=== PATIENT | male | born 1985 | race Caucasian/White ===

== ENCOUNTER 2023-04-11 21:59 | Emergency (ER) | payer SELFPAY ==
[2023-04-11 22:18] VITALS: BP 129/81; PULSE 96; RESP 18; TEMP 37.8; O2SAT 96; BMI 21.1
--- NOTE | 2023-04-11 23:12 | XR_ITS ---
The [address] [address] Patient Name: BRAVO ALBRECHT MRN: [id number] date: 1985 Sex: M Assigned Patient Location: ER Current Patient Location: ER Accession/Order Number: [id number] Exam Date: 04/11/2023 23:52 Report Date: 04/12/2023 00:08 At the request of: ARGENIS TA Procedure: XR chest 2V EXAM: XR chest 2V HISTORY: cough COMPARISON: None. TECHNIQUE: PA and lateral chest x-ray FINDINGS: Patchy infiltrate within the lingula. The remainder of the lung parenchyma is unremarkable. No pneumothorax or pleural effusion. The cardiac, mediastinal and hilar contours are unremarkable. No visualized acute osseous abnormality XR/XR chest 2V IMPRESSION: Lingula infiltrate. Electronically authenticated by: ADRIAN GRAY Date: 04/12/2023 00:08
--- NOTE | 2023-04-11 23:14 | ED.SOB1 ---
HPI - SOB/Dyspnea General Chief Complaint: Shortness of Breath/Dyspnea Stated Complaint: Shortness of Breath Time Seen by Provider: 04/11/23 23:08 Source: patient Mode of arrival: walk-in History of Present Illness HPI Narrative: history of CF and diabetes. ill for past 4 days with cough and dyspnea. Fever also. No chest pain or nausea. Cough mostly dry MD elicited complaint: shortness of breath and cough Related Data Home Medications Medication Instructions Recorded Confirmed insulin glargine 100 unit/mL (3 1 unit subcut QPM 04/11/23 04/11/23 mL) subcutaneous pen (Basaglar KwikPen U-100 Insulin) insulin lispro 100 unit/mL 1 sliding scale dose subcut 04/11/23 04/11/23 subcutaneous pen (Humalog KwikPen USEASDIRECTD (U-100) Insulin) qfjjeo-nklcddqw-bydvksd cap PO 04/11/23 3,000-10,000-14,000 unit capsule,delayed rel (Zenpep) Allergies Allergy/AdvReac Type Severity Reaction Status Date / Time No Known Drug Allergies Allergy Verified 04/11/23 22:20 Review of Systems ROS Status of ROS 10 or more systems reviewed and unremarkable except as noted in history and below Respiratory Reports: shortness of breath and cough [facility] Medical History (Updated 04/12/23 @ 01:17 by Kike Hill MD) Cystic fibrosis ?E84.9 - Cystic fibrosis, unspecified (ICD-10) Social History Smoking status: Never smoker Exam Constitutional Vital Signs, click to edit/add: Last Vital Signs Temp 98.4 F 04/12/23 00:42 Pulse 87 04/11/23 23:27 Resp 16 04/12/23 00:42 BP 129/81 04/11/23 22:18 Pulse Ox 96 04/12/23 00:42 O2 Del Method Room Air 04/11/23 23:27 Common normals: no apparent distress, average body habitus, oriented x3, no limitations, healthy appearing, alert and well nourished Eye Common normals: EOMs intact bilaterally and conjunctivae normal Chest Common normals: inspection of chest normal, palpation of chest normal and inspection of breasts normal Cardio Common normals: regular rate, regular rhythm, S1 normal heart sound and S2 normal heart sound GI Common normals: Normal to inspection, nondistended, normoactive bowel sounds present, soft to palpation and non-tender Extremity Common normals: normal to inspection and full ROM Neuro Common normals: oriented x3, CN's II-XII intact bilaterally, moves all extremities, no focal motor deficits and no sensory deficits noted Psych Appearance: grossly normal Course Vital Signs Vital signs: Vital Signs Temperature 100.1 F 04/11/23 22:18 Pulse Rate 96 H 04/11/23 22:18 Respiratory Rate 18 04/11/23 22:18 Blood Pressure 129/81 04/11/23 22:18 Pulse Oximetry 96 04/11/23 22:18 Oxygen Delivery Method Room Air 04/11/23 22:18 Temperature 98.4 F 04/12/23 00:42 Pulse Rate 87 04/11/23 23:27 Respiratory Rate 16 04/12/23 00:42 Blood Pressure 129/81 04/11/23 22:18 Pulse Oximetry 96 04/12/23 00:42 Oxygen Delivery Method Room Air 04/11/23 23:27 MDM - SOB/Dyspnea MDM Narrative Medical decision making narrative: patient has past history of CF. presents with fever, cough and feeling short of breath. Patient given duoneb nebulizer treatment and afterwards was feeling better and requesting discharged. Patient then informed that he has a left lingula pneumonia. Given Rocephin and zithromax in the department for CAP and discharged home with a prescription of zpak and ceftin 500 bid 10 days. he is to follow up with his doctor. BS 334. Patient know diabetic and able to manage his BS at home Lab Data Labs: Lab Results 04/11/23 04/11/23 Range/Units 23:20 23:24 WBC 12.1 H (4.0-11.0) 10^3/uL RBC 4.31 L (4.70-6.10) 10^6/uL Hgb 12.2 L (14.0-18.0) g/dL Hct 37.0 L (42.0-54.0) % MCV 85.8 (80.0-94.0) fL MCH 28.3 (25.9-34.0) pg MCHC 33.0 (29.9-35.2) g/dL RDW 13.1 (11.0-15.0) % Plt Count 272 (150-450) 10^3/uL MPV 9.6 (9.5-13.5) fL Neut % (Auto) 71.8 (43.0-75.0) % Lymph % (Auto) 17.2 L (20.5-60.0) % [place] % (Auto) 8.5 (1.7-12.0) % Eos % (Auto) 1.9 (0.9-7.0) % Baso % (Auto) 0.3 (0.2-2.0) % Neut # (Auto) 8.6 H (1.4-6.5) 10^3/uL Lymph # (Auto) 2.1 (1.2-3.8) 10^3/uL [place] # (Auto) 1.0 H (0.3-0.8) 10^3/uL Eos # (Auto) 0.2 (0.0-0.7) 10^3/uL Baso # (Auto) 0.0 (0.0-0.1) 10^3/uL Abs Immat Gran (auto) 0.04 H (0.00-0.03) 10^3/uL Imm/Tot Granulo (auto) 0.3 (0.0-0.5) % Sodium 130 L (136-145) mmol/L Potassium 4.5 (3.5-5.1) mmol/L Chloride 97 L (98-107) mmol/L Carbon Dioxide 28.1 (21.0-32.0) mmol/L Anion Gap 9.4 BUN 12.0 (7.0-18.0) mg/dL Creatinine 0.98 (0.70-1.30) mg/dL Est GFR ( Amer) >60 (>=60) Est GFR (Non-Af Amer) >60 (>=60) BUN/Creatinine Ratio 12.2 Glucose 334 H (74-106) mg/dL Lactate 0.9 (0.4-2.0) mmol/L Calcium 8.6 (8.5-10.1) mg/dL Adenovirus (PCR) Not detected (NOT DETECTE) C. pneumoniae DNA (PCR) Not detected (NOT DETECTE) Coronavirus Type OC43 Not detected (NOT DETECTE) Coronavirus Type HKU1 Not detected (NOT DETECTE) Coronavirus Type 229E Not detected (NOT DETECTE) Coronavirus Type NL63 Not detected (NOT DETECTE) Human Metapneumovir PCR Not detected (NOT DETECTE) M. pneumoniae (PCR) Not detected (NOT DETECTE) Parainfluenza PCR Not detected (NOT DETECTE) Parainfluenza 2 (PCR) Not detected (NOT DETECTE) Parainfluenza 3 (PCR) Not detected (NOT DETECTE) Parainfluenza 4 (PCR) Not detected (NOT DETECTE) RSV (RT-PCR) Not detected (NOT DETECTE) Entero/Rhino (PCR) Not detected (NOT DETECTE) SARS-CoV-2 (PCR) Not detected (NOT DETECTE) Bordetella pertussis (PCR) Not detected (NOT DETECTE) B parapertussis DNA PCR Not detected (NOT DETECTE) Influenza Type A (PCR) Not detected (NOT DETECTE) Influenza Type B (PCR) Not detected (NOT DETECTE) Imaging Data Chest x-ray: Radiologist's impression: Assigned Patient Location: ER Current Patient Location: ER Accession/Order Number: [id number] Exam Date: 04/11/2023 23:52 Report Date: 04/12/2023 00:08 At the request of: KIKE HILL Procedure: XR chest 2V EXAM: XR chest 2V HISTORY: cough COMPARISON: None. TECHNIQUE: PA and lateral chest x-ray FINDINGS: Patchy infiltrate within the lingula. The remainder of the lung parenchyma is unremarkable. No pneumothorax or pleural effusion. The cardiac, mediastinal and hilar contours are unremarkable. No visualized acute osseous abnormality IMPRESSION: Lingula infiltrate. Electronically authenticated by: ADRIAN GRAY Date: 04/12/2023 00:08 Discharge Plan Discharge Chief Complaint: Shortness of Breath/Dyspnea Clinical Impression: Pneumonia Prescriptions / Home Meds: No Action Zenpep 3,000-10,000 -14,000-unit capsule,delayed release(DR/EC) PO insulin glargine [Basaglar KwikPen U-100 Insulin] 100 unit/mL (3 mL) insulin pen 1 unit subcut QPM insulin lispro [Humalog KwikPen Insulin] 100 unit/mL insulin pen 1 sliding scale dose subcut USEASDIRECTD Instructions: Community Acquired Pneumonia (ED) Additional Instructions: follow up with your doctor in 2-3 days for recheck. Return if you become more short of breath Referrals: Physician,Non-Staff, [Primary Care Provider] - 1 week
[2023-04-11] MEDS: 0.9 % SODIUM CHLORIDE 1,000 ML 999 ML IV (23:24)
[2023-04-11 23:27] VITALS: PULSE 87; RESP 18; O2SAT 95
[2023-04-11] MEDS: IPRATROPIUM/ALBUTEROL SULFATE 3 ML AMPUL.NEB IH (23:27)
[2023-04-11 23:31] LABS: Adenovirus NOT DETECTED (NOT DETECTE); Bordetella parapertussis NOT DETECTED (NOT DETECTE); Coronavirus 229E NOT DETECTED (NOT DETECTE); Coronavirus HKU1 NOT DETECTED (NOT DETECTE); Coronavirus NL63 NOT DETECTED (NOT DETECTE); Coronavirus OC43 NOT DETECTED (NOT DETECTE); Human Metapneumovirus NOT DETECTED (NOT DETECTE); Human Rhinovirus/Enterovirus NOT DETECTED (NOT DETECTE); Influenza A NOT DETECTED (NOT DETECTE); Influenza B NOT DETECTED (NOT DETECTE); Mycoplasma pneumoniae NOT DETECTED (NOT DETECTE); Parainfluenza Virus 1 NOT DETECTED (NOT DETECTE); Parainfluenza Virus 2 NOT DETECTED (NOT DETECTE); Parainfluenza Virus 3 NOT DETECTED (NOT DETECTE); Parainfluenza Virus 4 NOT DETECTED (NOT DETECTE); Respiratory Syncytial Virus NOT DETECTED (NOT DETECTE); SARS-CoV-2 NOT DETECTED (NOT DETECTE)
[2023-04-11 23:32] LABS: Basophils Percent Auto 0.3 % (0.2-2.0); Eosinophils Absolute Auto 0.2 10^3/uL (0.0-0.7); Eosinophils Percent Auto 1.9 % (0.9-7.0); Hemoglobin 12.2 g/dL (14.0-18.0); Immature Granulocytes Abs Auto 0.04 10^3/uL (0.00-0.03); Immature Granulocytes Pct Auto 0.3 % (0.0-0.5); Lymphocytes Absolute Auto 2.1 10^3/uL (1.2-3.8); Lymphocytes Percent Auto 17.2 % (20.5-60.0); Mean Corpuscular Hemoglobin 28.3 pg (25.9-34.0); Mean Corpuscular Volume 85.8 fL (80.0-94.0); Mean Platelet Volume 9.6 fL (9.5-13.5); Monocytes Percent Auto 8.5 % (1.7-12.0); Neutrophils Absolute Auto 8.6 10^3/uL (1.4-6.5); Neutrophils Percent Auto 71.8 % (43.0-75.0); Platelet Count 272 10^3/uL (150-450); Red Blood Count 4.31 10^6/uL (4.70-6.10); Red Cell Distribution Width 13.1 % (11.0-15.0); White Blood Count 12.1 10^3/uL (4.0-11.0)
[2023-04-11 23:47] LABS: Anion Gap 9.4; BUN Creatinine Ratio 12.2; Calcium 8.6 mg/dL (8.5-10.1); Carbon Dioxide 28.1 mmol/L (21.0-32.0); Chloride 97 mmol/L (98-107); Estimated GFR (African America >60 (>=60); Estimated GFR (Non-African Ame >60 (>=60); Glucose 334 mg/dL (74-106); Potassium 4.5 mmol/L (3.5-5.1); Sodium 130 mmol/L (136-145)
[2023-04-11 23:56] LABS: Lactate/Lactic Acid 0.9 mmol/L (0.4-2.0)
--- NOTE | 2023-04-12 00:30 | PC.NURSE ---
Patient has hx of cystic fibrosis. c/o cough and fever since saturday. denies n/v/d. states she has been SOB. patient is 96% on room air. has been treating fever with tylenol. states cough is worse in the morning. sputum white and sometimes green. iv initated, fluids given. laboratory at bedside to collect respiratory swab. lungs sound clear bilateral. has not been around anyone that is sick that he knows of. is currently out of home breathing treatments
[2023-04-12 00:42] VITALS: RESP 16; TEMP 36.9; O2SAT 96
[2023-04-12] MEDS: CEFTRIAXONE 1,000 MG in 0.9 % SODIUM CHLORIDE 50 ML 100 MG IV (01:33)
[2023-04-12] MEDS: AZITHROMYCIN 500 MG in 0.9 % SODIUM CHLORIDE 250 ML 250 MG IV (01:34)
== END 2023-04-12 03:32 | disposition home or self-care (01) ==
PROVIDERS: Emergency Provider Internal Medicine
DX: J18.9 Pneumonia, unspecified organism (principal); Z20.822 Contact with and (suspected) exposure to COVID-19; E84.9 Cystic fibrosis, unspecified; E11.9 Type 2 diabetes mellitus without complications; Z79.899 Other long term (current) drug therapy; Z79.4 Long term (current) use of insulin; R50.9 Fever, unspecified
CPT/HCPCS: 0202U; 36415; 71046; 80048; 83605; 85025; 94640; 96374; 96375; 99285; J0456

== ENCOUNTER 2023-06-05 06:28 | Inpatient (IN) | payer SELFPAY ==
[2023-06-05] VITALS (49 sets, daily range): BP systolic 123–135; BP diastolic 67–95; PULSE 93–124; RESP 18–55; TEMP 36.6–37.3; O2SAT 93–97; BMI 23.7; BMI 21.6
--- NOTE | 2023-06-05 07:06 | XR_ITS ---
The [address] [address] Patient Name: BRAVO ALBRECHT MRN: [id number] date: 1985 Sex: M Assigned Patient Location: ER Current Patient Location: ER Accession/Order Number: [id number] Exam Date: 06/05/2023 07:22 Report Date: 06/05/2023 07:46 At the request of: ARGENIS TA Procedure: XR chest 2V EXAMINATION: XR chest 2V HISTORY: chest pain , cough, shortness of breath COMPARISON: XR chest 04/11/2023 FINDINGS: LUNGS: A few faint opacities scattered within the lungs. Near-complete clearing of previously seen left lingular/basilar infiltrates. VASCULATURE: No increased pulmonary vasculature. PLEURA: No pneumothorax, effusion, or pleural thickening. CARDIAC: No cardiomegaly or cardiac silhouette abnormality. MEDIASTINUM: No visible mass or adenopathy. BONES: No fracture or visible bone lesion. OTHER: Negative. XR/XR chest 2V IMPRESSION: 1. Scattered mild infiltrates versus atelectasis. 2. Interval decrease in left lower lobe/lingular infiltrates. Electronically authenticated by: ZULLY MENDOZA Date: 06/05/2023 07:46
--- NOTE | 2023-06-05 07:06 | ECG_ITS ---
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
[2023-06-05 07:15] LABS: Basophils Absolute Auto 0.1 10^3/uL (0.0-0.1); Basophils Percent Auto 0.3 % (0.2-2.0); Eosinophils Absolute Auto 0.1 10^3/uL (0.0-0.7); Eosinophils Percent Auto 0.8 % (0.9-7.0); Hematocrit 41.4 % (42.0-54.0); Hemoglobin 13.9 g/dL (14.0-18.0); Immature Granulocytes Abs Auto 0.06 10^3/uL (0.00-0.03); Immature Granulocytes Pct Auto 0.4 % (0.0-0.5); Lymphocytes Absolute Auto 1.8 10^3/uL (1.2-3.8); Lymphocytes Percent Auto 12.7 % (20.5-60.0); Mean Corpuscular HGB Conc 33.6 g/dL (29.9-35.2); Mean Corpuscular Volume 86.3 fL (80.0-94.0); Mean Platelet Volume 9.8 fL (9.5-13.5); Monocytes Absolute Auto 0.7 10^3/uL (0.3-0.8); Monocytes Percent Auto 4.7 % (1.7-12.0); Neutrophils Absolute Auto 11.8 10^3/uL (1.4-6.5); Neutrophils Percent Auto 81.1 % (43.0-75.0); Platelet Count 366 10^3/uL (150-450); Red Cell Distribution Width 12.9 % (11.0-15.0); White Blood Count 14.5 10^3/uL (4.0-11.0)
--- NOTE | 2023-06-05 07:16 | ED_ITS ---
HPI - General Adult General Chief complaint: Chest Pain Stated complaint: CHEST PAIN SOB Time Seen by Provider: 06/05/23 07:11 Source: patient Mode of arrival: walk-in Limitations: no limitations History of Present Illness HPI narrative: 38-year-old male presents for cough. He's been coughing up green phlegm. He had been treated with Zithromax in April and he seemed to be getting better but it didn't go away completely and now in the past few days it's gotten worse and he's had a worsening cough. He has a history of cystic fibrosis and has a specialist in [place]. He did not have a fever at triage. He feels short of breath. No vomiting or diarrhea. Related Data Home Medications Medication Instructions Recorded Confirmed insulin glargine 100 unit/mL (3 1 unit subcut QPM 04/11/23 04/11/23 mL) subcutaneous pen (Basaglar KwikPen U-100 Insulin) insulin lispro 100 unit/mL 1 sliding scale dose subcut 04/11/23 04/11/23 subcutaneous pen (Humalog KwikPen USEASDIRECTD (U-100) Insulin) bcxmql-oxwhafig-ehvcyvd cap PO 04/11/23 3,000-10,000-14,000 unit capsule,delayed rel (Zenpep) Allergies Allergy/AdvReac Type Severity Reaction Status Date / Time No Known Drug Allergies Allergy Verified 06/05/23 06:37 Review of Systems ROS Narrative A ten point review of systems is negative except as noted above. [facility] Medical History (Updated 06/05/23 @ 12:03 by Gilmer Kiran MD) Cystic fibrosis ?E84.9 - Cystic fibrosis, unspecified (ICD-10) Social History Smoking status: Never smoker Exam Narrative Exam Narrative: Nurses note and vital signs reviewed and patient is not hypoxic. General: The patient appears dyspneic. No cyanosis. He coughs quite frequently. Skin: Warm, dry, no pallor noted. There is no rash noted. Head: Normocephalic, atraumatic Eye: Normal conjunctiva, no drainage Ears, Nose, Mouth, and Throat: oral mucosa is moist. Nares patent. Cardiovascular: Regular Rate and Rhythm, tachycardic Respiratory: coughing frequently, good air movement, no rhonchi noted Back: non-tender GI: soft and nontender Musculoskeletal: The patient has no evidence of calf tenderness, no pitting edema, symmetrical pulses noted bilaterally Neurological: A&O, normal speech Psychiatric: Cooperative Constitutional Vital Signs, click to edit/add: Last Vital Signs Temp 98.7 F 06/05/23 07:47 Pulse 95 H 06/05/23 11:30 Resp 40 H 06/05/23 11:30 BP 131/81 06/05/23 11:00 Pulse Ox 93 L 06/05/23 11:30 O2 Del Method Room Air 06/05/23 06:32 Course Vital Signs Vital signs: Vital Signs Temperature 97.9 F 06/05/23 06:32 Pulse Rate 106 H 06/05/23 06:32 Respiratory Rate 22 06/05/23 06:32 Blood Pressure 132/84 06/05/23 06:32 Pulse Oximetry 95 06/05/23 06:32 Oxygen Delivery Method Room Air 06/05/23 06:32 Temperature 98.7 F 06/05/23 07:47 Pulse Rate 95 H 06/05/23 11:30 Respiratory Rate 40 H 06/05/23 11:30 Blood Pressure 131/81 06/05/23 11:00 Pulse Oximetry 93 L 06/05/23 11:30 Oxygen Delivery Method Room Air 06/05/23 06:32 Medical Decision Making MDM Narrative Medical decision making narrative: Chest x-ray is considered with patchy infiltrates. Covid is negative with influenza pending. He was initially given IV Cipro because of his history of cystic fibrosis and the concern for pseudomonas. Subchorionic spoke to Dr. Waters is his laser systems engineer at [facility]. Her cell phone number is [phone], and she reports that she will be happy to take phone calls from his providers if there are any questions about his management. She an IV discussed admission here versus transfer and she feels comfortable with the patient being admitted here. She does recommend IV vancomycin at this point instead of Cipro because he has not tested positive for pseudomonas since 2018. Blood cultures were obtained and are pending. Fungal culture and sputum culture are ordered. Blood sugar is elevated at four hundred seventy-nine and he was given IV insulin. Differential Diagnosis Differential Diagnosis: pneumonia, Covid, upper respiratory infection, influenza Lab Data Lab results reviewed: Yes I reviewed the patient's lab results Labs: Lab Results 06/05/23 06/05/23 Range/Units 06:43 08:15 WBC 14.5 H (4.0-11.0) 10^3/uL RBC 4.80 (4.70-6.10) 10^6/uL Hgb 13.9 L (14.0-18.0) g/dL Hct 41.4 L (42.0-54.0) % MCV 86.3 (80.0-94.0) fL MCH 29.0 (25.9-34.0) pg MCHC 33.6 (29.9-35.2) g/dL RDW 12.9 (11.0-15.0) % Plt Count 366 (150-450) 10^3/uL MPV 9.8 (9.5-13.5) fL Neut % (Auto) 81.1 H (43.0-75.0) % Lymph % (Auto) 12.7 L (20.5-60.0) % [place] % (Auto) 4.7 (1.7-12.0) % Eos % (Auto) 0.8 L (0.9-7.0) % Baso % (Auto) 0.3 (0.2-2.0) % Neut # (Auto) 11.8 H (1.4-6.5) 10^3/uL Lymph # (Auto) 1.8 (1.2-3.8) 10^3/uL [place] # (Auto) 0.7 (0.3-0.8) 10^3/uL Eos # (Auto) 0.1 (0.0-0.7) 10^3/uL Baso # (Auto) 0.1 (0.0-0.1) 10^3/uL Abs Immat Gran (auto) 0.06 H (0.00-0.03) 10^3/uL Imm/Tot Granulo (auto) 0.4 (0.0-0.5) % Sodium 135 L (136-145) mmol/L Potassium 4.4 (3.5-5.1) mmol/L Chloride 95 L (98-107) mmol/L Carbon Dioxide 28.7 (21.0-32.0) mmol/L Anion Gap 15.7 BUN 28.0 H (7.0-18.0) mg/dL Creatinine 1.23 (0.70-1.30) mg/dL Est GFR ( Amer) >60 (>=60) Est GFR (Non-Af Amer) >60 (>=60) BUN/Creatinine Ratio 22.8 Glucose 479 H (74-106) mg/dL Calcium 9.4 (8.5-10.1) mg/dL Total Bilirubin 0.5 (0.2-1.0) mg/dL AST 17 (15-37) U/L ALT 37 (16-63) U/L Alkaline Phosphatase 191 H (46-116) U/L Troponin I High Sens <4.0 L (4.0-76.1) pg/mL Total Protein 8.1 (6.4-8.2) g/dL Albumin 3.5 (3.4-5.0) g/dL Globulin 4.6 g/dL Albumin/Globulin Ratio 0.8 SARS-CoV-2 (PCR) Negative (NEGATIVE) SARS-CoV-2 RNA (CAROL) Not detected (NOT DETECTE) Imaging Data Chest x-ray: Radiologist's impression: Procedure: XR chest 2V EXAMINATION: XR chest 2V HISTORY: chest pain , cough, shortness of breath COMPARISON: XR chest 04/11/2023 FINDINGS: LUNGS: A few faint opacities scattered within the lungs. Near-complete clearing of previously seen left lingular/basilar infiltrates. VASCULATURE: No increased pulmonary vasculature. PLEURA: No pneumothorax, effusion, or pleural thickening. CARDIAC: No cardiomegaly or cardiac silhouette abnormality. MEDIASTINUM: No visible mass or adenopathy. BONES: No fracture or visible bone lesion. OTHER: Negative. IMPRESSION: 1. Scattered mild infiltrates versus atelectasis. 2. Interval decrease in left lower lobe/lingular infiltrates. Electronically authenticated by: ZULLY MENDOZA Date: 06/05/2023 07:46 ECG Data Attestation: I personally reviewed and interpreted this ECG as follows: (sinus tachycardia, no acute findings) Critical Care Time Critical Care Time Total Critical Care Time: 35 Attestation: Due to the high probability of sudden and clinically significant deterioration in the patient's condition he/she required the highest level of my preparedness to intervene urgently I provided critical care time including documentation time, medication orders and management, reevaluation, vital sign assessment, ordering and reviewing of lab tests, ordering and reviewing of x-ray studies, and admission orders. Aggregate critical care time is 35 minutes including only time during which I was engaged in work directly related to his/her care and did not include time spent treating other patients simultaneously. Discharge Plan Discharge Chief Complaint: Chest Pain Clinical Impression: Pneumonia Patient Disposition: Admitted As Inpatient Time of Disposition Decision: 12:03 Condition: Fair
[2023-06-05 07:26] LABS: Alanine Aminotransferase 37 U/L (16-63); Albumin Globulin Ratio 0.8; Albumin Level 3.5 g/dL (3.4-5.0); Alkaline Phosphatase 191 U/L (46-116); Anion Gap 15.7; Aspartate Amino Transferase 17 U/L (15-37); BUN Creatinine Ratio 22.8; Bilirubin Total 0.5 mg/dL (0.2-1.0); Calcium 9.4 mg/dL (8.5-10.1); Carbon Dioxide 28.7 mmol/L (21.0-32.0); Chloride 95 mmol/L (98-107); Estimated GFR (African America >60 (>=60); Estimated GFR (Non-African Ame >60 (>=60); Globulin 4.6 g/dL; Glucose 479 mg/dL (74-106); Potassium 4.4 mmol/L (3.5-5.1); Sodium 135 mmol/L (136-145); Total Protein 8.1 g/dL (6.4-8.2)
[2023-06-05 07:29] LABS: Troponin I High Sensitivity <4.0 pg/mL (4.0-76.1)
[2023-06-05 09:14] LABS: SARS-CoV-2 Ag NEGATIVE (NEGATIVE)
[2023-06-05] MEDS: CIPROFLOXACIN IN 5 % DEXTROSE 400 MG/200 ML PIGGYBACK 200 MG IV (10:14)
[2023-06-05 11:27] LABS: SARS-CoV-2 NAA NOT DETECTED (NOT DETECTE)
[2023-06-05] MEDS: INSULIN REGULAR 300 UNITS/3 ML 10 UNIT IV (12:17)
[2023-06-05] MEDS: VANCOMYCIN HCL 1,000 MG in 0.9 % SODIUM CHLORIDE 500 ML 250 MG IV (12:26)
[2023-06-05 12:48] LABS: Glucometer 92 mg/dL (74-106)
[2023-06-05 12:55] LABS: Influenza Virus A Antigen Negative; Influenza Virus B Antigen Negative; Internal Control Within Normal Limits
[2023-06-05 16:57] LABS: Amphetamine Screen Urine NEGATIVE (NEGATIVE); Barbiturates Screen Urine NEGATIVE (NEGATIVE); Benzodiazepines Screen Urine NEGATIVE (NEGATIVE); Buprenorphine Screen Urine NEGATIVE (NEGATIVE); Cannabinoid Screen Urine POSITIVE (NEGATIVE); Cocaine Screen Urine NEGATIVE (NEGATIVE); Methadone Screen Urine NEGATIVE (NEGATIVE); Methamphetamines Screen Urine NEGATIVE (NEGATIVE); Opiate Screen Urine NEGATIVE (NEGATIVE); Oxycodone Screen Urine NEGATIVE (NEGATIVE); Phencyclidine Screen Urine NEGATIVE (NEGATIVE); Tricyclic Antidepressant Urine NEGATIVE (NEGATIVE)
[2023-06-05] MEDS: ENOXAPARIN SODIUM 40 MG/0.4 ML SYRINGE SUBQ (17:34)
[2023-06-05] MEDS: 0.9 % SODIUM CHLORIDE 1,000 ML 100 ML IV (17:52)
[2023-06-05] MEDS: GUAIFENESIN 600 MG TAB.ER.12H PO (18:13)
[2023-06-05] MEDS: VANCOMYCIN HCL 1,500 MG in 0.9 % SODIUM CHLORIDE 500 ML 250 MG IV (19:41)
[2023-06-05] MEDS: ALBUTEROL SULFATE 2.5 MG/3 ML VIAL NEB IH (20:02)
[2023-06-05] MEDS: SODIUM CHLORIDE 3% INHALATION 15 ML NEB 3 ML IH (20:02)
[2023-06-05 22:24] LABS: Glucose 674 mg/dL (74-106)
[2023-06-05] MEDS: LEVOFLOXACIN IN DEXTROSE 5 % 750 MG/150 ML IV.SOLN 100 MG IV (23:20)
[2023-06-06] VITALS (8 sets, daily range): BP systolic 126–144; BP diastolic 68–82; PULSE 84–117; RESP 14–28; TEMP 36.1–38; O2SAT 90–99
[2023-06-06 00:28] LABS: Glucometer 432 mg/dL (74-106)
--- NOTE | 2023-06-06 00:33 | PC.NURSE ---
Addendum entered by Leandro Marquez 06/06/23 00:42: pt newly diagnosed CF, doesnt check himself on regular basis per pt, only gives himself 8 units when he eats at this time, glucose monitor and has not gotten a new one yet Original Note: Vitals and blood glucose check at @ 2145 showed on meter it was pout of range high at that time, contact physician about reading and asked if he wanted an order for stat blood draw to get true reading on glucose. physician gave order than lab david blood andresults were 674 @ 2224. contact physician wit level and he ordered 18 units SUBQ at 2230 and retest in one hour. one hour went by and rechecked level @ 2330, acuchek meter still read high, advise physician again of level, 15 U SUBQ ordered and given at 2345 and to recheck in half hour. Recheck done at 0020, pt blood glucose level is at 432 at this time, physician wants pt rechecked in one hour for glucose level
[2023-06-06 01:26] LABS: Glucometer 233 mg/dL (74-106)
[2023-06-06 03:21] LABS: Glucometer 63 mg/dL (74-106)
[2023-06-06 04:01] LABS: Glucometer 170 mg/dL (74-106)
[2023-06-06] MEDS: SODIUM CHLORIDE 3% INHALATION 15 ML NEB 3 ML IH ×4 (04:03→20:04)
[2023-06-06] MEDS: ALBUTEROL SULFATE 2.5 MG/3 ML VIAL NEB IH ×4 (04:03→20:05)
[2023-06-06 05:40] LABS: Alanine Aminotransferase 26 U/L (16-63); Albumin Globulin Ratio 0.7; Albumin Level 2.7 g/dL (3.4-5.0); Alkaline Phosphatase 141 U/L (46-116); Anion Gap 13.1; Aspartate Amino Transferase 19 U/L (15-37); BUN Creatinine Ratio 16.5; Basophils Absolute Auto 0.1 10^3/uL (0.0-0.1); Basophils Percent Auto 0.4 % (0.2-2.0); Bilirubin Total 0.4 mg/dL (0.2-1.0); Calcium 8.1 mg/dL (8.5-10.1); Carbon Dioxide 25.3 mmol/L (21.0-32.0); Chloride 102 mmol/L (98-107); Eosinophils Absolute Auto 0.1 10^3/uL (0.0-0.7); Eosinophils Percent Auto 1.2 % (0.9-7.0); Estimated GFR (African America >60 (>=60); Estimated GFR (Non-African Ame >60 (>=60); Glucose 180 mg/dL (74-106); Hemoglobin 12.1 g/dL (14.0-18.0); Immature Granulocytes Abs Auto 0.07 10^3/uL (0.00-0.03); Immature Granulocytes Pct Auto 0.6 % (0.0-0.5); Lymphocytes Absolute Auto 1.9 10^3/uL (1.2-3.8); Lymphocytes Percent Auto 15.6 % (20.5-60.0); Mean Corpuscular HGB Conc 32.7 g/dL (29.9-35.2); Mean Corpuscular Hemoglobin 28.3 pg (25.9-34.0); Mean Corpuscular Volume 86.7 fL (80.0-94.0); Mean Platelet Volume 9.8 fL (9.5-13.5); Monocytes Percent Auto 8.1 % (1.7-12.0); Neutrophils Absolute Auto 8.9 10^3/uL (1.4-6.5); Neutrophils Percent Auto 74.1 % (43.0-75.0); Platelet Count 203 10^3/uL (150-450); Potassium 3.4 mmol/L (3.5-5.1); Red Blood Count 4.27 10^6/uL (4.70-6.10); Sodium 137 mmol/L (136-145); Total Protein 6.7 g/dL (6.4-8.2)
[2023-06-06] MEDS: 0.9 % SODIUM CHLORIDE 1,000 ML 100 ML IV ×2 (06:54→17:24)
[2023-06-06] MEDS: GUAIFENESIN 600 MG TAB.ER.12H PO ×2 (07:00→17:22)
[2023-06-06 07:42] LABS: Glucometer 115 mg/dL (74-106)
[2023-06-06] MEDS: ENOXAPARIN SODIUM 40 MG/0.4 ML SYRINGE SUBQ (08:27)
[2023-06-06] MEDS: VANCOMYCIN HCL 1,500 MG in 0.9 % SODIUM CHLORIDE 500 ML 250 MG IV (09:20)
[2023-06-06 11:00] LABS: Glucometer 247 mg/dL (74-106)
[2023-06-06] MEDS: HUMALOG KWIKPEN SUBQ (11:21)
--- NOTE | 2023-06-06 11:52 | CM.NOTE ---
Rounds made with Dr. Munoz, no discharge for pt today. Pt still having shortness of breath and worsens with activity.
--- NOTE | 2023-06-06 12:00 | P.HP_ITS ---
Patient seen and examined, agree with assessment and plan below. History of CF and admitted with pneumonia. Sputum growing S. aureus and sensitivity pending. On levaquin and vancomycin. Overall improved this am Diagnosis: 1. Pneumonia 2. Cystic Fibrosis 3. DM2 with hyperglycemia H&P: HPI History of Present Illness Chief complaint: CHEST PAIN SOB, pneumonia Narrative: Date/time of exam 06/06/23 0935 This is a 38-year-old male patient with a past medical history significant for cystic fibrosis and type 2 diabetes; who presented to the ED complaining of cough productive of green sputum and pleuritic chest pain. The patient reports onset of symptoms in the middle of April. He was seen in the ED at that time and treated as an outpatient for pneumonia. He reports completing his treatment and had mild improvement of his symptoms but not complete resolution. Around the week of his symptoms began to worsen again. He finally presented to the ED yesterday complaining of significant symptoms. Work-up in the ED revealed leukocytosis (14.5) and scattered infiltrates on chest x-ray. The patient was admitted to the hospitalist service for pneumonia and CHF exacerbation. At the time of my exam the patient is sitting up in bed watching television. He reports improvement of his pleuritic pain and improved mobilization of secretions after chest physiotherapy and hypertonic saline inhalation treatments were initiated last night. He was able to produce a sputum culture last night and results are still pending. We will continue to treat him for possible Pseudomonas pending those culture results along with vancomycin for gram- positive coverage. The patient also admits to not following his diabetic diet closely or monitoring his sugars closely as he was uninsured and ran out of insulin and test strips. He will be seen in consult by the early childhood educator aide isis d he was encouraged to monitor his blood sugars closely for improved overall health management. Review of Systems ROS Status of ROS 10 or more systems reviewed and unremarkable except as noted in history and below [facility] Medical History (Updated 06/06/23 @ 12:18 by Sybil Hoffman NP) Cystic fibrosis ?E84.9 - Cystic fibrosis, unspecified (ICD-10) Cystic fibrosis with liver disease ?E84.8 - Cystic fibrosis with other manifestations (ICD-10) ?K76.9 - Liver disease, unspecified (ICD-10) Nose polyp ?J33.9 - Nasal polyp, unspecified (ICD-10) Type 2 diabetes mellitus with hyperglycemia ?E11.65 - Type 2 diabetes mellitus with hyperglycemia (ICD-10) Surgical History (Updated 06/05/23 @ 13:37 by Deana Hill) H/O left knee surgery ?Z98.890 - Other specified postprocedural states (ICD-10) History of hernia surgery ?Z98.890 - Other specified postprocedural states (ICD-10) ?Z87.19 - Personal history of other diseases of the digestive system (ICD-10) Family History (Updated 06/05/23 @ 13:33 by Deana Hill) Father Family history of COPD (chronic obstructive pulmonary disease) Family history of cancer Family history of diabetes mellitus Family history of hypertension Mother Family history of diabetes mellitus Family history of hypertension Sister Family history of hypertension Social History (Updated 06/05/23 @ 13:36 by Deana Hill) Within the past year, how often did you have a drink containing alcohol: never Score interpretation: A score less than 4 is consistent with normal alcohol consumption. 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 Known occupational exposures/hazards: No Highest level of school completed/degree received: Associate degree: occupational, technical, vocational program Are you now , , , , never or living with a partner: In a typical week, how many times do you talk on the telephone with family, friends, or neighbors: 3 or more times per week How often do you get together with friends or relatives: 3 or more times per week How often do you attend congregational or advent services: never Do you belong to any clubs or organizations such as congregational groups unions, fraternal or athletic groups, or school groups: no Total score: 1 Score interpretation: A score of less than or equal to 1 indicates the most socially isolated. Little interest or pleasure in doing things: not at all Feeling down, depressed, or hopeless: not at all Feel stressed/tense/nervous/anxious/difficulty sleeping: only a little Do you think of yourself as: straight/heterosexual Gender Identity: male Meds Home Medications and Allergies Home Medications Medication Instructions Recorded Confirmed Type insulin glargine 100 unit/mL (3 25 unit subcut BID 04/11/23 06/05/23 History mL) subcutaneous pen (Basaglar KwikPen U-100 Insulin) insulin lispro 100 unit/mL 1 sliding scale dose subcut 04/11/23 06/05/23 History subcutaneous pen (Humalog KwikPen USEASDIRECTD (U-100) Insulin) [id number] 5 cap PO .WM 04/11/23 06/05/23 History 3,000-10,000-14,000 unit capsule,delayed rel (Zenpep) multivitamin (Daily Multi-Vitamin 1 tab PO DAILY 06/05/23 06/05/23 History tablet) Allergies Allergy/AdvReac Type Severity Reaction Status Date / Time No Known Drug Allergies Allergy Verified 06/05/23 06:37 Exam Constitutional Vital Signs, click to edit/add: Last Vital Signs Temp 99.2 F 06/06/23 06:00 Pulse 107 H 06/06/23 10:41 Resp 18 06/06/23 10:41 BP 126/68 06/06/23 06:00 Pulse Ox 95 06/06/23 10:41 O2 Del Method Room Air 06/06/23 06:00 Common normals: no apparent distress, oriented x3, alert and well nourished General appearance: cooperative Orientation/consciousness: Yes awake HENNE Common normals: normocephalic, head/scalp atraumatic, hearing grossly normal bilaterally, external nose normal and moist oral mucous membranes Eye Common normals: PERRL, EOMs intact bilaterally, conjunctivae normal and no scleral icterus Alignment: alignment normal Eyelid: eyelids normal Neck & C-Spine Common normals: full ROM, supple and no JVD Chest Common normals: inspection of chest normal Chest: symmetrical chest wall rise Respiratory Common normals: normal respiratory effort, no retractions, no use of accessory muscles and clear to auscultation bilaterally Effort & inspection: able to speak in complete sentences Auscultation: diminished lung sounds (Throughout, very dim BLL) Cardio Common normals: no JVD, regular rate, regular rhythm, S1 normal heart sound, S2 normal heart sound, no gallops, no clicks, no murmurs, no rub and peripheral pulses 2+ throughout GI Common normals: Normal to inspection, nondistended, normoactive bowel sounds present, soft to palpation, non-tender, no hepatosplenomegaly, no masses and no bruits Bladder/kidney exam: bladder normal to palpation Back & Pelvis Common normals: thoracic and lumbar spine normal to inspection Extremity Common normals: normal capillary refill and no pedal edema General: normal exam except as noted; no clubbing and no cyanosis Neuro Paulina Coma Scale: GCS not evaluated Common normals: CN's II-XII intact bilaterally, moves all extremities, no focal motor deficits and no sensory deficits noted Speech: speech normal Motor exam: strength 5/5 throughout Psych Common normals: mental status grossly normal, thought process normal, affect normal and activity/motor behavior normal Results Labs Labs: Short CBC 06/06/23 Range/Units 05:14 WBC 12.0 H (4.0-11.0) 10^3/uL Hgb 12.1 L (14.0-18.0) g/dL Hct 37.0 L (42.0-54.0) % Plt Count 203 (150-450) 10^3/uL BMP 06/05/23 06/06/23 22:00 05:14 Sodium 137 Potassium 3.4 L Chloride 102 Carbon Dioxide 25.3 BUN 13.0 Creatinine 0.79 Glucose 674 H* 180 H Calcium 8.1 L Liver Function 06/06/23 Range/Units 05:14 Total Bilirubin 0.4 (0.2-1.0) mg/dL AST 19 (15-37) U/L ALT 26 (16-63) U/L Alkaline Phosphatase 141 H (46-116) U/L Albumin 2.7 L (3.4-5.0) g/dL Pulse Oximetry Attestation: I have reviewed the pertinent pulse oximetry results. Imaging Chest x-ray: Attestation: I have reviewed the pertinent imaging results. Radiologist's impression: IMPRESSION: 1. Scattered mild infiltrates versus atelectasis. 2. Interval decrease in left lower lobe/lingular infiltrates. Assessment and Plan Assessment and Plan (1) Pneumonia: Assessment and Plan: ACUTE * Admit inpatient * Continue IVPB Vancomycin per Dr Waters recommendation * Add Levaquin IVPB for now pending sputum culture results - pseudomonas coverage * Albuterol nebs q4hWA * Guaifenisen/OPEP for sputum mobilization * O2 as needed to keep sats > 90% - currently stable on RA * NS IVF at 100 ml/hr for hydration * See Cystic fibrosis exacerbation below * Daily CBC, CMP (2) Cystic fibrosis exacerbation: Assessment and Plan: ACUTE * Hypertonic saline inhalation q4hWA * Chest physiotherapy vest QID w/ albuterol neb treatments * Continue home Zenpep * Consider phone consult with established pick up attendant, Dr Waters, pending clinical course (3) Type 2 diabetes mellitus with hyperglycemia: Assessment and Plan: CHRONIC * Pt has not been managing closely for some months * A1C in AM * Consult DM educator - consider CGM * Continue home glargine BID, CHO coverage w/ 8 un at meals, plus SS for now * Regular diet as pt requires high calorie diet w/ concurrent cystic fibrosis
[2023-06-06] MEDS: INSULIN ASPART 300 UNIT/3 ML PEN 8 UNIT SUBQ ×2 (12:55→17:14)
--- NOTE | 2023-06-06 14:14 | CM.NOTE ---
Discussed with pt about insurance again. Pt called Human Resources dept at [facility] and his coverage is not active until Jul 08 2023. E-mailed billers to bring pt a financial form.
[2023-06-06 14:45] LABS: Glucometer 217 mg/dL (74-106)
--- NOTE | 2023-06-06 15:52 | CM.NOTE ---
Pt given 4 dollar list from [facility] pharmacy for medications and also provided with Good Rx cards.
[2023-06-06 16:59] LABS: Glucometer 406 mg/dL (74-106)
[2023-06-06] MEDS: INSULIN ASPART 300 UNIT/3 ML PEN SUBQ ×2 (17:17→22:35)
[2023-06-06 18:00] LABS: Glucometer 344 mg/dL (74-106)
[2023-06-06] MEDS: INSULIN DETEMIR 300 UNIT/3 ML INSULN.PEN 25 UNIT SUBQ (21:38)
[2023-06-06] MEDS: LEVOFLOXACIN IN DEXTROSE 5 % 750 MG/150 ML IV.SOLN 100 MG IV (22:25)
[2023-06-06] MEDS: ACETAMINOPHEN 500 MG TABLET 1000 MG PO (22:25)
[2023-06-06 22:34] LABS: Glucometer 243 mg/dL (74-106)
[2023-06-07] MEDS: VANCOMYCIN HCL 1,500 MG in 0.9 % SODIUM CHLORIDE 500 ML 200 MG IV (00:07)
[2023-06-07 00:13] VITALS: TEMP 36.8
[2023-06-07] MEDS: 0.9 % SODIUM CHLORIDE 1,000 ML 100 ML IV (05:30)
[2023-06-07] MEDS: GUAIFENESIN 600 MG TAB.ER.12H PO (05:31)
[2023-06-07 05:43] VITALS: BP 129/82; PULSE 115; RESP 28; TEMP 36.9; O2SAT 96
[2023-06-07 05:46] VITALS: PULSE 115; RESP 18; O2SAT 96
[2023-06-07] MEDS: ALBUTEROL SULFATE 2.5 MG/3 ML VIAL NEB IH ×2 (05:46→11:05)
[2023-06-07] MEDS: SODIUM CHLORIDE 3% INHALATION 15 ML NEB 3 ML IH ×2 (05:46→11:05)
[2023-06-07 07:32] LABS: Glucometer 120 mg/dL (74-106)
[2023-06-07 07:33] LABS: Basophils Absolute Auto 0.1 10^3/uL (0.0-0.1); Basophils Percent Auto 0.4 % (0.2-2.0); Eosinophils Absolute Auto 0.2 10^3/uL (0.0-0.7); Eosinophils Percent Auto 1.9 % (0.9-7.0); Hematocrit 38.4 % (42.0-54.0); Hemoglobin 12.6 g/dL (14.0-18.0); Immature Granulocytes Abs Auto 0.09 10^3/uL (0.00-0.03); Immature Granulocytes Pct Auto 0.8 % (0.0-0.5); Lymphocytes Absolute Auto 1.5 10^3/uL (1.2-3.8); Lymphocytes Percent Auto 12.8 % (20.5-60.0); Mean Corpuscular HGB Conc 32.8 g/dL (29.9-35.2); Mean Corpuscular Hemoglobin 28.4 pg (25.9-34.0); Mean Corpuscular Volume 86.5 fL (80.0-94.0); Mean Platelet Volume 9.2 fL (9.5-13.5); Monocytes Percent Auto 8.4 % (1.7-12.0); Neutrophils Percent Auto 75.7 % (43.0-75.0); Platelet Count 254 10^3/uL (150-450); Red Blood Count 4.44 10^6/uL (4.70-6.10); Red Cell Distribution Width 13.1 % (11.0-15.0); White Blood Count 11.9 10^3/uL (4.0-11.0)
[2023-06-07 08:02] LABS: Alanine Aminotransferase 38 U/L (16-63); Albumin Globulin Ratio 0.6; Albumin Level 2.6 g/dL (3.4-5.0); Alkaline Phosphatase 149 U/L (46-116); Anion Gap 10.6; Aspartate Amino Transferase 25 U/L (15-37); BUN Creatinine Ratio 14.3; Bilirubin Total 0.5 mg/dL (0.2-1.0); Calcium 8.3 mg/dL (8.5-10.1); Carbon Dioxide 26.2 mmol/L (21.0-32.0); Chloride 104 mmol/L (98-107); Estimated GFR (African America >60 (>=60); Estimated GFR (Non-African Ame >60 (>=60); Globulin 4.2 g/dL; Glucose 154 mg/dL (74-106); Potassium 3.8 mmol/L (3.5-5.1); Sodium 137 mmol/L (136-145); Total Protein 6.8 g/dL (6.4-8.2)
[2023-06-07 08:10] LABS: Vancomycin Trough 10.5 ug/mL (5.0-20.0)
[2023-06-07 08:36] LABS: Estimated Average Glucose 275 mg/dL; Glycohemoglobin A1C 11.2 % (4.5-6.2)
[2023-06-07] MEDS: MULTIVITAMIN TABLET 1 TAB PO (08:38)
[2023-06-07] MEDS: ENOXAPARIN SODIUM 40 MG/0.4 ML SYRINGE SUBQ (08:38)
[2023-06-07] MEDS: INSULIN ASPART 300 UNIT/3 ML PEN 8 UNIT SUBQ ×2 (08:39→12:20)
[2023-06-07] MEDS: INSULIN DETEMIR 300 UNIT/3 ML INSULN.PEN 25 UNIT SUBQ (08:39)
[2023-06-07] MEDS: VANCOMYCIN HCL 1,500 MG in 0.9 % SODIUM CHLORIDE 500 ML 250 MG IV (09:12)
--- NOTE | 2023-06-07 09:32 | XR_ITS ---
The [address] [address] Patient Name: BRAVO ALBRECHT MRN: [id number] date: 1985 Sex: M Assigned Patient Location: [place] Current Patient Location: [place] Accession/Order Number: [id number] Exam Date: 06/07/2023 09:45 Report Date: 06/07/2023 10:14 At the request of: MARYANA REICH Procedure: XR chest 1V EXAMINATION: XR chest 1V 06/07/2023 7:13 AM PST HISTORY: Pneumonia surveillance TECHNIQUE: Single frontal view of the chest acquired. COMPARISONS: Chest x-ray 06/05/2023 FINDINGS: Lines/tubes/other: None. Heart and mediastinum: The heart and the mediastinum are within normal limits for technique. Bones: No acute osseous abnormality. Lungs: Mild patchy multifocal and bilateral pulmonary opacification is similar compared with 06/05/2023. Pleura: There is no significant pleural effusion or pneumothorax. Other: None. XR/XR chest 1V IMPRESSION: Multifocal pulmonary opacification is similar compared with 06/05/2023. Electronically authenticated by: LAUREN CHOUDHARY Date: 06/07/2023 10:14
--- NOTE | 2023-06-07 10:17 | CM.NOTE ---
Rounding with Dr. Munoz. Discussed possible discharge today. Discussed with DOOR TECHNICIAN possible doxycycline which is usually on the cheaper side. Pt. voiced ready for discharge today. wellness educator to see the patient today and also discussed HgA1c being 11.1 and compliance with diabetes.
[2023-06-07 11:22] LABS: Glucometer 151 mg/dL (74-106)
--- NOTE | 2023-06-07 12:01 | P.DS_ITS ---
Patient seen and examined, agree with below. History of CF and presented with pneumonia. Initially on vancomycin and levaquin. Sputum culture showed MRSA. Much improved with treatment and discharged home with oral doxycycline. A1C 11.2 and stressed the need to control BS. Diagnosis: 1. Pneumonia 2. Cystic Fibrosis 3. DM2 with hyperglycemia DS: Providers Provider Date of admission: 06/05/23 12:02 Primary care physician: Non-Staff Physician, Consults: 06/05/23 Consult to Experimental Mechanic [employer] Routine Reason for consult:: Other Other reason:: Unable to get medications at times due to expense 06/06/23 08:55 Consult to Utilization Management Rn Routine Reason for consultation: New DM dx;poor control;ran out of test strips Has provider been notified: No Discharging clinician: Sybil Hoffman DS: Diagnosis Discharge Diagnosis (1) Pneumonia: (2) Cystic fibrosis exacerbation: (3) Type 2 diabetes mellitus with hyperglycemia: DS: Summary Hospital Course Hospital Course: The patient was admitted with pneumonia and acute cystic fibrosis exacerbation. The patient did not require O2 supplementation but he complained of pleuritic chest pain and increasing shortness of breath and cough. He was placed in reverse isolation throughout his stay. He was treated with IVPB vancomycin and Levaquin pending sputum culture results. His sputum culture grew out only MRSA and thus there is no indication for continued Pseudomonas coverage. He was treated with hypertonic saline inhalation and chest physiotherapy with a vest and was able to mobilize secretions better throughout his stay. He reports that he is feeling improved and is requesting to be discharged home. He is being discharged home in stable condition with a prescription for 12 more days of doxycycline (total 14-day course) to fully treat his MRSA pneumonia per the sputum culture sensitivity. In addition the patient was found to be hyperglycemic with poorly controlled blood sugars at baseline with a A1c of 11.2. Apparently the patient has been uninsured and has been unable to afford monitoring strips or insulin. He will be reinsured beginning in July. In the interim we have prescribed regular insulin which he can obtain an expensively at the pharmacy. He notes that he has enough glargine insulin to last until July. The patient was strongly encouraged to monitor his diabetes more carefully to improve his overall health. The patient verbalized understanding. He should follow up with his PCP within 5-7 days and with his seedling sorter within 2 weeks if possible, otherwise he should follow up at his regularly scheduled appointment in mid-july. Time Spent with Patient Time attestation: Total time spent providing and/or coordinating discharge services: Time spent: greater than 30 minutes Specific discharge activities: Physical exam, discussion of discharge plan, questions answered. Exam Constitutional Vital Signs, click to edit/add: Last Vital Signs Temp 98.5 F 06/07/23 05:43 Pulse 115 H 06/07/23 05:46 Resp 18 06/07/23 05:46 BP 129/82 06/07/23 05:43 Pulse Ox 96 06/07/23 05:46 O2 Del Method Room Air 06/07/23 05:46 Common normals: no apparent distress, oriented x3 and alert General appearance: cooperative Orientation/consciousness: Yes awake HENMT Common normals: normocephalic and head/scalp atraumatic Eye Common normals: PERRL, EOMs intact bilaterally, conjunctivae normal and no scleral icterus Respiratory Common normals: normal respiratory effort, no use of accessory muscles and clear to auscultation bilaterally Effort & inspection: able to speak in complete sentences and symmetric chest movement Cardio Common normals: no JVD, regular rate, regular rhythm, S1 normal heart sound, S2 normal heart sound, no murmurs and peripheral pulses 2+ throughout GI Common normals: Normal to inspection, nondistended, normoactive bowel sounds present, soft to palpation and non-tender Bladder/kidney exam: bladder normal to palpation Extremity Common normals: normal to inspection, full ROM, normal capillary refill and no pedal edema General: no clubbing and no cyanosis Neuro Common normals: moves all extremities, no focal motor deficits and no sensory deficits noted Speech: speech normal Psych Common normals: mental status grossly normal and activity/motor behavior normal DS: Data Data Completed and Pending Labs on day of discharge: Labs from last 24 hours 06/07/23 06/07/23 06/07/23 11:20 07:24 07:03 WBC 11.9 H RBC 4.44 L Hgb 12.6 L Hct 38.4 L MCV 86.5 MCH 28.4 MCHC 32.8 RDW 13.1 Plt Count 254 MPV 9.2 L Neut % (Auto) 75.7 H Lymph % (Auto) 12.8 L [place] % (Auto) 8.4 Eos % (Auto) 1.9 Baso % (Auto) 0.4 Neut # (Auto) 9.0 H Lymph # (Auto) 1.5 [place] # (Auto) 1.0 H Eos # (Auto) 0.2 Baso # (Auto) 0.1 Abs Immat Gran (auto) 0.09 H Imm/Tot Granulo (auto) 0.8 H Sodium 137 Potassium 3.8 Chloride 104 Carbon Dioxide 26.2 Anion Gap 10.6 BUN 9.0 Creatinine 0.63 L Est GFR ( Amer) >60 Est GFR (Non-Af Amer) >60 BUN/Creatinine Ratio 14.3 Glucose 154 H Estimat Average Glucose 275 Hemoglobin A1c 11.2 H Calcium 8.3 L Total Bilirubin 0.5 AST 25 ALT 38 Alkaline Phosphatase 149 H Total Protein 6.8 Albumin 2.6 L Globulin 4.2 Albumin/Globulin Ratio 0.6 Vancomycin Trough 10.5 POC Glucose 151 H 120 H 06/06/23 06/06/23 06/06/23 22:33 17:59 16:57 WBC RBC Hgb Hct MCV MCH MCHC RDW Plt Count MPV Neut % (Auto) Lymph % (Auto) [place] % (Auto) Eos % (Auto) Baso % (Auto) Neut # (Auto) Lymph # (Auto) [place] # (Auto) Eos # (Auto) Baso # (Auto) Abs Immat Gran (auto) Imm/Tot Granulo (auto) Sodium Potassium Chloride Carbon Dioxide Anion Gap BUN Creatinine Est GFR ( Amer) Est GFR (Non-Af Amer) BUN/Creatinine Ratio Glucose Estimat Average Glucose Hemoglobin A1c Calcium Total Bilirubin AST ALT Alkaline Phosphatase Total Protein Albumin Globulin Albumin/Globulin Ratio Vancomycin Trough POC Glucose 243 H 344 H 406 H 06/06/23 14:43 WBC RBC Hgb Hct MCV MCH MCHC RDW Plt Count MPV Neut % (Auto) Lymph % (Auto) [place] % (Auto) Eos % (Auto) Baso % (Auto) Neut # (Auto) Lymph # (Auto) [place] # (Auto) Eos # (Auto) Baso # (Auto) Abs Immat Gran (auto) Imm/Tot Granulo (auto) Sodium Potassium Chloride Carbon Dioxide Anion Gap BUN Creatinine Est GFR ( Amer) Est GFR (Non-Af Amer) BUN/Creatinine Ratio Glucose Estimat Average Glucose Hemoglobin A1c Calcium Total Bilirubin AST ALT Alkaline Phosphatase Total Protein Albumin Globulin Albumin/Globulin Ratio Vancomycin Trough POC Glucose 217 H Preliminary micro results at discharge 06/05/23 12:00 - Preliminary Sputum - Expectorated Sputum Discharge Plan Discharge Disposition: Home, Self-Care Condition: Fair Discharge Medications: New Humulin R Regular U-100 Insuln 100 unit/mL solution 1 sliding scale dose subcut USEASDIRECTD Qty: 10 0RF Rx Instructions: May use in place of other short acting insulin based on affordability (DME) insulin syringe-needle U-100 [Sure Comfort Insulin Syringe] 1 mL 29 gauge x 1/2 syringe See Rx Instructions .Route Qty: 100 0RF Rx Instructions: As directed doxycycline hyclate 100 mg capsule 100 mg PO BID 12 Days Qty: 24 0RF Continued multivitamin [Daily Multi-Vitamin] Tablet 1 tab PO DAILY insulin lispro [Humalog KwikPen Insulin] 100 unit/mL insulin pen 1 sliding scale dose subcut USEASDIRECTD Qty: 0 0RF Zenpep 3,000-10,000 -14,000-unit capsule,delayed release(DR/EC) 5 cap PO .WM Rx Instructions: 5-7 CAPS WITH MEALS AND 3 CAPS WITH SNACKS insulin glargine [Basaglar KwikPen U-100 Insulin] 100 unit/mL (3 mL) insulin pen 25 unit subcut BID Activity: increase activity as tolerated Diet: advance to your usual diet Patient Instructions: Community Acquired Pneumonia (DC) Forms: Portal Instructions Follow Up Appointments: - Follow up appt. with Dr. Camilo on 8 @ 2pm office location: [facility] office #: [phone] - Follow up with Dr Waters within 2 weeks if possible, otherwise keep appt as previously scheduled on 07/21/23 Discharge Date/Time: 06/07/23 13:17
[2023-06-07] MEDS: INSULIN ASPART 300 UNIT/3 ML PEN SUBQ (12:20)
== END 2023-06-07 13:17 | disposition home or self-care (01) | DRG 178 ==
LOC: ER 12:03 → MS 12:20
PROVIDERS: Internal Medicine; Admitting Provider Family Medicine; Emergency Provider Emergency Medicine; Visit Provider Nurse Practitioner
DX: J15.212 Pneumonia due to Methicillin resistant Staphylococcus aureus (principal); E84.9 Cystic fibrosis, unspecified; Z79.4 Long term (current) use of insulin; Z79.899 Other long term (current) drug therapy; Z20.822 Contact with and (suspected) exposure to COVID-19; E11.65 Type 2 diabetes mellitus with hyperglycemia; T38.3X6A Underdosing of insulin and oral hypoglycemic [antidiabetic] drugs, initial encounter; Z91.120 Patient's intentional underdosing of medication regimen due to financial hardship
CPT/HCPCS: 36415; 71045; 71046; 80053; 80202; 80307; 82947; 82948; 83036; 84484; 85025; 87040; 87070; 87102; 87150; 87186; 87205; 87206; 87635; 87804; 87811; 93005; 94640; 94667; 94668; 96361; 96365; 96366; 96367; 96368; 96372; 99285; G0108; J3370

== ENCOUNTER 2023-09-25 15:55 | Outpatient (OUT) | payer OTHER, SELFPAY ==
[2023-09-25 16:32] LABS: Basophils Absolute Auto 0.1 10^3/uL (0.0-0.1); Basophils Percent Auto 0.7 % (0.2-2.0); Eosinophils Absolute Auto 0.3 10^3/uL (0.0-0.7); Eosinophils Percent Auto 2.7 % (0.9-7.0); Hematocrit 40.4 % (42.0-54.0); Immature Granulocytes Abs Auto 0.02 10^3/uL (0.00-0.03); Immature Granulocytes Pct Auto 0.2 % (0.0-0.5); Lymphocytes Absolute Auto 2.1 10^3/uL (1.2-3.8); Lymphocytes Percent Auto 22.2 % (20.5-60.0); Mean Corpuscular HGB Conc 32.2 g/dL (29.9-35.2); Mean Corpuscular Hemoglobin 27.9 pg (25.9-34.0); Mean Corpuscular Volume 86.7 fL (80.0-94.0); Mean Platelet Volume 9.5 fL (9.5-13.5); Monocytes Absolute Auto 0.6 10^3/uL (0.3-0.8); Monocytes Percent Auto 6.7 % (1.7-12.0); Neutrophils Absolute Auto 6.5 10^3/uL (1.4-6.5); Neutrophils Percent Auto 67.5 % (43.0-75.0); Platelet Count 293 10^3/uL (150-450); Red Blood Count 4.66 10^6/uL (4.70-6.10); Red Cell Distribution Width 12.3 % (11.0-15.0); White Blood Count 9.6 10^3/uL (4.0-11.0)
[2023-09-25 17:35] LABS: Anion Gap 10.4; BUN Creatinine Ratio 14.3; Carbon Dioxide 28.1 mmol/L (21.0-32.0); Chloride 101 mmol/L (98-107); Estimated GFR (African America >60 (>=60); Estimated GFR (Non-African Ame >60 (>=60); Glucose 319 mg/dL (74-106); Potassium 4.5 mmol/L (3.5-5.1); Sodium 135 mmol/L (136-145)
== END 2023-09-25 15:56 | disposition home or self-care (01) ==
LOC: LAB 15:55
DX: Z01.812 Encounter for preprocedural laboratory examination (principal); E84.0 Cystic fibrosis with pulmonary manifestations
CPT/HCPCS: 36415; 80048; 85025

== ENCOUNTER 2023-10-15 01:40 | Emergency (ER) | payer BC, SELFPAY ==
[2023-10-15 01:45] VITALS: BP 162/94; PULSE 83; TEMP 36.9; O2SAT 97; BMI 21.7
[2023-10-15 01:52] VITALS: PULSE 82
--- OUTSIDE RECORDS SUMMARY | 2023-10-15 02:02 | XMS_ITS | CCD ---
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 Name Role Phone Kimberly Irene Unavailable Unavailable Blake, William K Unavailable Unavailable Larry Armstrong Unavailable Unavailable Jaleesa Allan Unavailable Unavailable Kapil Covarrubias Unavailable Unavailable Eli Mary Unavailable Unavailable None, No PCP Unavailable Unavailable Melanie Willson (View Only) Unavailable Unavai lable Unavailable Unavailable Unavailable Unavailable Unavailable Unavailable Kimberly, Irene Unavailable Unavailable Blake, William K Unavailable Unavailable Nathaniel Larry Unavailable Unavailable Jaleesa Allan Unavailable Unavailable Melanie Willson - View Only Unavailable Unavai lable Unavailable Unavailable Unavailable Pending Provider Unavailable Unavailable None, No PCP Unavailable Unavailable Margaret Briceño Unavailable Unavailable Unavailable Primary Care Provider Unavailabl e Pending Provider Unavailable Unavailable Unavailable Unavailable Unavailable Unavailable Mirian Greenwood MD Primary Care Provider IACOB, MRIIAN Referring Unavailable IACOB, MIRIAN Primary Care Unavailable IACOB, MIRIAN Referring Unavailable IACOB, MIRIAN Primary Care Unavailable REBECCA NAYAK Attending Unavailable IACOB, MIRAIN Primary Care Unavailable HOMER SEWELL Attending Unavailable KAELYN ACUNA Attending Unavailable IACOB, MIRIAN Referring Unavailable IACOB, MIRIAN Primary Care Unavailable MARKER, DR ALDRICH Attending Unavailable MARKER, DR ALDRICH Consulting Unavailable MARKER, DR ALDRICH Admitting Unavailable REQUEST, DR JAMES LISTED Primary Care Unavaila MELANIE Moraes Consulting Unavailable MIRA NUNZE Attending Unavailable MIRA NUNEZ Consulting Unavailable MIRA NUNEZ Admitting Unavailable MISLuciano, DR ULLOA Primary Care Unavailable Mirian Greenwood MD Unavailable Fozia PharmD, Marlen Ordaz Unavailable [phone] Carmelita Waters MD Unavailable [phone], Raebrittany Hernandez Unavailable Unava zach Adam RN, Georgina Unavailable Unavaila cade Prasad HEALTH INFORMATION MANAGEMENT DIRECTOR, Ella Salmon Unavailable Unavail able Daren HEALTH INFORMATION MANAGEMENT DIRECTOR, Elo Marquis Unavailable UnavailCARMELITA Salas Attending Unavailable CARMELITA WATERS Referring Unavailable CARMELITA WATERS Referring Unavailable IRENE KAISER Attending Unavailable PETER MCGILL Attending Unavailable BRAXTON العراقي Referring Unavailable CARMELITA WATERS Attending Unavailable PARIS RICHARDSON Referring Unavailable Medications Current Medications Medication Drug Class(es) Dates Sig (Normalized) Sig (Original) acetaminophen 500 mg oral tablet (2 sources) Start: 10-27-2021 acetaminophen (TYLENOL) 500 MG tablet Start: 10-27-2021 End: 11-11-2021 take 2 tablets by mouth three times daily acetaminophen (TYLENOL) 500 MG tablet Take 2 tablets by mouth 3 times daily for 15 days 90 tablet 0 10/27/2021 11/11/2021 Active [id number] 200 actuat albuterol 0.09 mg/actuat metered dose inhaler (20 sources) beta2-Adrenergic Agonist Start: 09-18-2023 End: 12-17-2023 take 2 puff(s) by inhalation every four hours albuterol 90 mcg/actuation inhaler Indications: Cystic fibrosis with pulmonary manifestations (CMS/HCC) Inhale 2 puffs every 4 hours if needed for shortness of breath (airway clearnce). 18 g 11 09/18/2023 12/17/2023 Active Start: 04-24-2023 albuterol 2.5 mg /3 mL (0.083 %) nebulizer solution Indications: Cystic fibrosis with pulmonary manifestations (CMS/HCC) Take 3 mL (2.5 mg) by nebulization every 4 hours if needed (airway clearance). 75 mL 1 04/24/2023 Active Start: 07-25-2021 albuterol (PRO VENTIL) (5 MG/ML) 0.5% nebulizer solution Indications: Cystic fibrosis (HCC) , Shortness of breath Take 1 mL by nebulization 4 times daily as needed for Wheezing 120 each 3 07/25/2021 Active Start: 07-25-2021 albuterol (PRO VENTIL) (2.5 MG/3ML) 0.083% nebulizer solution Take 3 mLs by nebulization every 6 hours as needed for Wheezing 120 each 3 07/25/2021 Active Start: 07-31-2018 Albuterol Sulf ate (2.5 MG/3ML) 0.083% Inhalation Nebulization Solution USE 1 UNIT DOSE IN NEBULIZER EVERY 4 HOURS NEEDED. Quantity: 15 Refills: 3 Ordered: 04-Oct-2021 Jaleesa Allan PhD Start : 31-Jul-2018 Active Start: 07-28-2018 take 2 puff(s) by in halation every four hours as needed Albuterol Sulfate HFA 108 (90 Base) MCG/ACT Inhalation Aerosol Solution INHALE 2 PUFFS EVERY 4 HOURS NEEDED Quantity: 1 Refills: 3 Ordered: 04-Oct-2021 Jaleesa Allan PhD Start : 28-Jul-2018 Active ok to substitute Ventolin or Proventil per insurance coverage Start: 07-28-2018 take 2 puff(s) by in halation every four hours as needed Albuterol Sulfate HFA 108 (90 Base) MCG/ACT Inhalation Aerosol Solution INHALE 2 PUFFS EVERY 4 HOURS NEEDED Quantity: 1 Refills: 3 Ordered: 04-Oct-2021 Jaleesa Allan PhD Start : 28-Jul-2018 Active ok to substitute Ventolin or Proventil per insurance coverage Start: 07-28-2018 Albuterol Sulf ate HFA 108 (90 Base) MCG/ACT Inhalation Aerosol Solution INHALE 2 PUFFS Twice daily and every 4 hours as needed Quantity: 1 Refills: 6 Ordered: 09-Mar-2020 Jaleesa Allan PhD Start : 28-Jul-2018 Active ok to substitute Ventolin or Proventil per insurance coverage Start: 07-28-2018 Albuterol Sulf ate HFA 108 (90 Base) MCG/ACT Inhalation Aerosol Solution INHALE 2 PUFFS Twice daily and every 4 hours as needed Quantity: 1 Refills: 6 Jaleesa Allan PhD Start : 28-Jul-2018 Active 8.5 GM Inhaler Start: 07-28-2018 ProAir HFA 108 (90 Base) MCG/ACT Inhalation Aerosol Solution INHALE 2 PUFFS Twice daily and every 4 hours as needed Quantity: 1 Refills: 6 Jaleesa Alaln PhD Start : 28-Jul-2018 Active 8.5 GM Inhaler amylase 965250 unt / lipase 17241 unt / protease 49791 unt delayed release oral capsule (17 sources) Start: 04-24-2023 lipase-proteas e-amylase (Zenpep) 25,000-79,000- 105,000 unit capsule Indications: Cystic fibrosis with pulmonary manifestations (CMS/HCC) Take 3 capsules by mouth 3 times a day with meals. Take 5-7 caps with meals and 3 caps with snacks 270 capsule 2 04/24/2023 Active Start: 06-27-2016 Zenpep [id number] 9000 UNIT Oral Capsule Delayed Release Particles Take 5-7 caps with meals and 3 caps with snacks Quantity: 500 Refills: 3 Ordered: 04-Oct-2021 Jaleesa Allan PhD Start : 27-Jun-2016 Active Mieotee-Meedhv-Gamjykqw (ULTRASE MT 20 PO) (1 source) Ykpppdz-Dwpmcj-Q rotease (ULTRASE MT 20 PO) Take 25,000 Units by mouth 0 Active Budesonide / formoterol (20 sources) Corticostero id, beta2-Adrene rgic Agonist Star t: 03 3- 24 End: 10-06 2 24 take 2 puff(s) by inhalation twice daily budesonide-formoteroL (Symbicort) 80-4.5 mcg/actuation inhaler Indications: Cystic fibrosis with pulmonary manifestations (CMS/HCC) Inhale 2 puffs 2 times a day. 8 g 11 09/18/2023 10/18/2023 Active Start: 08-04-2018 take 2 puff(s) by mo uth twice daily Symbicort 80-4.5 MCG/ACT Inhalation Aerosol INHALE 2 PUFFS TWICE DAILY. RINSE MOUTH AFTER USE. Quantity: 1 Refills: 3 Ordered: 04-Oct-2021 Jaleesa Allan PhD Start : 04-Aug-2018 Active Start: 08-04-2018 take 2 puff(s) by mo ut twice daily Symbicort 80-4.5 MCG/ACT Inhalation Aerosol INHALE 2 PUFFS TWICE DAILY. RINSE MOUTH AFTER USE. Quantity: 1 Refills: 6 Jaleesa Allan PhD Start : 04-Aug-2018 Active 10.2 GM Inhaler busPIRone hydrochloride 5 mg oral tablet (20 sources) Start: 09-18-2023 End: 09-17-2024 take 1 tablet by mouth twice daily busPIRone (Buspar) 5 mg tablet Indications: Anxiety , Rhinosinusitis Take 1 tablet (5 mg) by mouth 2 times a day. 60 tablet 11 09/18/2023 09/17/2024 Active Start: 03-09-2020 take 1 tablet by migue every twelve hours busPIRone HCl - 10 MG Oral Tablet TAKE 1 TABLET BY MOUTH EVERY 12 HOURS Quantity: 180 Refills: 0 Ordered: 31-Aug-2020 Jaleesa Allan PhD Start : 09-Mar-2020 Active Start: 03-09-2020 take 1 tablet by migue th once daily busPIRone HCl - 10 MG Oral Tablet TAKE 1 TABLET EVERY 12 HOURS DAILY. Quantity: 180 Refills: 0 Jaleesa Allan PhD Start : 09-Mar-2020 Active Start: 07-21-2018 take 1 tablet by migue twice daily busPIRone HCl - 5 MG Oral Tablet TAKE 1 TABLET TWICE DAILY. Quantity: 180 Refills: 3 Jaleesa Allan PhD Start : 21-Jul-2018 Active cholecalciferol 0.125 mg oral tablet (6 sources) Vitamin D Start: 09-18-2023 End: 09-12-2024 take 1 tablet by mouth once daily cholecalciferol (Vitamin D-3) 5,000 Units tablet Indications: Cystic fibrosis with pulmonary manifestations (CMS/HCC) Take 1 tablet (5,000 Units) by mouth once daily. 30 tablet 11 09/18/2023 09/12/2024 Active Elexacaftor-Tezacaft or-Ivacaft (TRIKAFTA PO) (1 source) Elexacaftor-Teza caf tor-Ivacaft (TRIKAFTA PO) Take by mouth 0 Active elexacaftor-tezacaft or-ivacaft (Trikafta) 100-50-75 mg tablet (6 sources) Start: 09-18-2023 take 2 tablets by mouth once daily in the evening elexacaftor-tezacaf tor-ivacaft (Trikafta) 100-50-75 mg tablet Indications: Cystic fibrosis (CMS/HCC) take 2 Tabs (elexacaftor 100mg/tezacaftor 50mg/ivacaftor 75mg) PO Q AM and 1 Tab (ivacaftor 150mg) PO Q Evening with fatty foods. 84 tablet 2 09/18/2023 Active fluticasone propionate 0.05 mg/actuat metered dose nasal spray (6 sources) Corticosteroid Start: 09-18-2023 End: 03-16-2024 take 2 spray(s) nasal route once daily fluticasone (Flonase) 50 mcg/actuation nasal spray Indications: Cystic fibrosis ([facility]) Administer 2 sprays into each nostril once daily. Shake gently. Before first use, prime pump. After use, clean tip and replace cap. 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 0 07/20/2016 Active ibuprofen 600 mg oral tablet (1 source) Nonsteroidal Anti-inflammatory Drug Start: 10-27-2021 take 1 tablet by mouth three times daily as needed for pain ibuprofen (ADVIL;MOTRIN) 600 MG tablet Take 1 tablet by mouth 3 times daily as needed for Pain 30 tablet 0 10/27/2021 Active 3 ml insulin glargine 100 unt/ml pen injector (20 sources) Insulin Analog Start: 09-19-2023 insulin glargine (Basaglar KwikPen U-100 Insulin) 100 unit/mL (3 mL) pen Indications: Diabetes mellitus related to CF (cystic fibrosis) ([facility]) Inject up to 50 units daily 15 mL 11 09/19/2023 Active Start: 10-27-2021 End: 11-26-2021 insulin glargine (LANTUS;BAS AGLAR) 100 UNIT/ML injection pen Indications: Diabetes mellitus due to underlying condition with other specified complication, with long-term current use of insulin ([facility]) Inject 55 Units into the skin 2 times daily 12 pen 5 10/27/2021 11/26/2021 Active Start: 10-04-2021 End: 09-18-2023 insulin glargine (Basaglar K wikPen U-100 Insulin) 100 unit/mL (3 mL) pen Inject 50 Units under the skin. 0 10/04/2021 09/18/2023 Discontinued (Reorder) Start: 07-21-2018 Basaglar KwikP en 100 UNIT/ML Subcutaneous Solution Pen- injector INJECT 50 UNITS TWICE DAILY DIRECTED Quantity: 6 Refills: 3 Ordered: 25-Oct-2021 Irene Kaiser MD Start : 25-Oct-2021 Active 3 ml insulin lispro 100 unt/ml cartridge (17 sources) Insulin Analog Start: 09-19-2023 insulin lispro (HumaLOG U-100 Insulin) 100 unit/mL injection Indications: Diabetes mellitus related to CF (cystic fibrosis) ([facility]) Use up to 50 units daily as directed 15 mL 11 09/19/2023 Active Start: 10-04-2021 End: 09-18-2023 insulin lispro (HumaLOG U-10 0 Insulin) 100 unit/mL injection Inject 8 Units under the skin. 0 10/04/2021 09/18/2023 Discontinued (Reorder) Start: 08-08-2021 End: 11-06-2021 insulin lispro, 1 Unit Dial, (HUMALOG KWIKPEN) 100 UNIT/ML SOPN Indications: Diabetes mellitus due to underlying condition with other specified complication, with long-term current use of insulin ([facility]) Inject 10 Units into the skin 4 times daily (with meals and nightly) Alternative Requested - Appears to be covered by the insurance as alternative to Insulin Aspart on [facility] EMR. Thank you. 30 mL 2 08/08/2021 11/06/2021 Active Start: 07-27-2021 insulin lispro , 1 Unit Dial, (HUMALOG KWIKPEN) 100 UNIT/ML SOPN Indications: Diabetes mellitus due to underlying condition with other specified complication, with long-term current use of insulin (HCC) 8 Units, 4 TIMES DAILY WITH MEALS & NIGHTLY 5 pen 1 07/27/2021 Active mirtazapine 15 mg oral tablet (15 sources) Start: 04-24-2023 take 1 tablet by mouth once daily at bedtime mirtazapine (Remeron) 15 mg tablet Indications: Insomnia, unspecified type Take 1 tablet (15 mg) by mouth once daily at bedtime. 90 tablet 0 04/24/2023 Active Start: 10-04-2021 take 1 tablet by migue th at bedtime Mirtazapine 15 MG Oral Tablet TAKE 1 TABLET AT BEDTIME. Quantity: 90 Refills: 1 Ordered: 04-Oct-2021 Jerrell Jacobs, Jaleesa Start : 04-Oct-2021 Active sodium chloride 70 mg/ml inhalation solution (15 sources) Start: 04-24-2023 take 1 dose by inhalation twice daily sodium chloride 7 % solution for nebulization nebulizer solution Indications: Cystic fibrosis with pulmonary manifestations (CMS/HCC) , Cystic fibrosis (CMS/HCC) Inhale 1 vial via nebulizer twice a day 240 mL 3 04/24/2023 Active Start: 10-27-2021 End: 10-27-2021 0.9 % sodium chloride bolus Start: 07-27-2021 sodium chlorid e, Inhalant, 7 % nebulizer solution Indications: History of cystic fibrosis , Cystic fibrosis (HCC) Take 4 mLs by nebulization as needed for Other or Cough 1 box of #60. Ok for pharmacist to substitute based on what is available/quantity to be dispensed please, thank you. 240 mL 1 07/27/2021 Active Start: 06-25-2021 End: 06-26-2021 0.9 % sodium chloride bolus Start: 07-31-2018 take 1 dose by inhal ation twice daily Sodium Chloride 7 % Inhalation Nebulization Solution INHALE 1 VIAL VIA NEBULIZER TWICE A DAY Quantity: 6 Refills: 3 Eli Bush Start : 31-Jul-2018 Active 30 x 4 ML Plas Cont vit A-vit D3-vit E-vit K (DEKAs Essential) 2,000 unit-2000 unit-1,000 mcg capsule capsule (6 sources) Start: 09-18-2023 End: 03-08-2025 take 1 capsule by mouth once daily vit A-vit D3-vit E-vit K (DEKAs Essential) 2,000 unit-2000 unit-1,000 mcg capsule capsule Indications: Cystic fibrosis with pulmonary manifestations (CMS/HCC) Take 1 capsule (1,000 mcg) by mouth once daily. 30 capsule 11 09/18/2023 09/12/2024 Active Completed/Discontinued Medications Medication Drug Class(es) Dates Sig (Normalized) Sig (Original) Accu-Chek Guide w/Device Kit (15 sources) Start: 07-30-2018 Accu-Chek Guide w/Device Kit USE DIRECTED. Quantity: 1 Refills: 0 Irene Kaiser MD Start : 30-Jul-2018 Active AeroChamber Z-Stat Plus Chambr (15 sources) Start: 07-31-2018 AeroChamber Z-Stat Plus Chambr Please dispense aero chamber with mouthpiece. Okay to to substitute sweetie vortex or opti chamber Quantity: 1 Refills: 2 Kapil Feldman Start : 31-Jul-2018 Active amylases 559683 unt / endopeptidases 83976 unt / lipase 31181 unt delayed release oral capsule (15 sources) Start: 06-27-2016 Zenpep 52019-70052 UNIT Oral Capsule Delayed Release Particles Take 5-7 caps with meals and 3 caps with snacks Quantity: 500 Refills: 0 Jaleesa Allan PhD Start : 27-Jun-2016 Active azithromycin 250 mg oral tablet (1 source) Macrolide Antimicrobial Start: 09-01-2019 take 2 tablets by mouth once daily, then take 1 tablet by mouth, then take 1 tablet by mouth once daily Azithromycin 250 MG Oral Tablet TAKE 2 TABLETS ON DAY 1 THEN TAKE 1 TABLET A DAY FOR 4 DAYS. Quantity: 1 Refills: 0 Jaleesa Allan PhD Start : 01-Sep-2019 Active 6 Tablet Pack bisacodyl 5 mg delayed release oral tablet (9 sources) Stimulant Laxative Start: 03-30-2020 End: 10-04-2021 take 3 tablets by mouth once daily Bisacodyl EC 5 MG Oral Tablet Delayed Release TAKE 3 TABLET Once the day before your colonscopy Quantity: 3 Refills: 0 Ordered: 30-Mar-2020 Margaret Briceño MD Start : 30-Mar-2020 End : 04-Oct-2021 Complete colistin 75 mg/ml injectable solution (17 sources) Start: 07-29-2018 inject 1 dose by inhalation twice daily Colistimethate Sodium (CBA) 150 MG Injection Solution Reconstituted Dilute each vial with 3 mL sterile water, withdraw 3 mL and add to nebulizer, inhale twice daily Quantity: 56 Refills: 1 Ordered: 16-Mar-2019 Jaleesa Allan PhD Start : 29-Jul-2018 Active Home [facility] dornase dickson 1 mg/ml inhalant solution (6 sources) Recombinant Human Deoxyribonuclease 1 Start: 07-21-2018 take 1 dose by inhalation once daily Pulmozyme 1 MG/ML Inhalation Solution INHALE 1 VIAL Daily Quantity: 90 Refills: 3 Eli Bush Start : 21-Jul-2018 Active 2.5 ML Plas Cont 3 ml insulin aspart, human 100 unt/ml pen injector (17 sources) Insulin Analog Start: 02-02-2019 NovoLOG FlexPen 100 UNIT/ML Subcutaneous Solution Pen-injector inject up to 40 units daily for meal coverage and correction as directed by physician Quantity: 1 Refills: 3 Ordered: 19-Mar-2019 William Lozano MD Start : 02-Feb-2019 Active levalbuterol 0.417 mg/ml inhalant solution (3 sources) beta2-Adrenergic Agonist Start: 11-06-2017 take 1 dose by inhalation twice daily as needed Levalbuterol HCl - 1.25 MG/3ML Inhalation Nebulization Solution Use 1 vial in nebulizer twice daily and as needed every 8 hours Quantity: 4 Refills: 11 Jaleesa Allan PhD Start : 06-Nov-2017 Active 3 ML Plas Cont (25 Plas Conts) magnesium citrate 58.2 mg/ml oral solution (9 sources) Start: 03-30-2020 End: 10-04-2021 Magnesium Citrate 1.745 GM/30ML Oral Solution Take 2 nights prior to scheduled colonoscopy. Quantity: 1 Refills: 0 Ordered: 30-Mar-2020 Margaret Briceño MD Start : 30-Mar-2020 End : 04-Oct-2021 Complete nystatin 542124 unt/ml topical cream (17 sources) Polyene Antifungal Start: 03-11-2019 Nystatin 294431 UNIT/GM External Cream APPLY AND RUB IN A THIN FILM TO AFFECTED AREAS TWICE DAILY.(AM AND PM). Quantity: 1 Refills: 0 Ordered: 11-Mar-2019 Jaleesa Allan PhD Start : 11-Mar-2019 Active Start: 03-11-2019 Nystatin 63510 0 UNIT/GM External Cream APPLY AND RUB IN A THIN FILM TO AFFECTED AREAS TWICE DAILY.(AM AND PM). Quantity: 1 Refills: 0 Jaleesa Allan PhD Start : 11-Mar-2019 Active 30 GM Tube omeprazole 20 mg delayed release oral tablet (10 sources) Proton Pump Inhibitor Start: 08-07-2018 take 1 tablet by mouth once daily PriLOSEC OTC 20 MG Oral Tablet Delayed Release TAKE 1 TABLET DAILY. Quantity: 56 Refills: 3 Jaleesa Allan PhD Start : 07-Aug-2018 Active oseltamivir 75 mg oral capsule (11 sources) Neuraminidase Inhibitor Start: 06-23-2014 take 1 capsule by mouth twice daily Oseltamivir Phosphate 75 MG Oral Capsule Take 1 capsule twice daily for 5 days Quantity: 10 Refills: 1 Ordered: 09-May-2020 Kapil Feldman Start : 23-Jun-2014 Active polyethylene glycol 3350 052479 mg / potassium chloride 1480 mg / sodium bicarbonate 5720 mg / sodium chloride 88622 mg powder for oral solution (9 sources) Osmotic Laxative Start: 03-30-2020 End: 10-04-2021 PEG 3350-KCl-Na Bicarb-NaCl 420 GM Oral Solution Reconstituted Take as directed starting the day prior to procedure. Quantity: 2 Refills: 0 Ordered: 30-Mar-2020 Margaret Briceño MD Start : 30-Mar-2020 End : 04-Oct-2021 Complete Start: 03-30-2020 take 420 g by mouth once PEG 3 350-KCl-Na Bicarb-NaCl 420 GM Oral Solution Reconstituted Take as directed starting the day prior to procedure. Quantity: 2 Refills: 0 Margaret Briceño MD Start : 30-Mar-2020 Active 4000 ML Bottle Sterile Water for Injection Injection Solution (2 sources) Start: 07-29-2018 Sterile Water for Injection Injection Solution Instill 3 ml sterile water to reconstitute each vial of Colistin Quantity: 3 Refills: 0 Ordered: 02-Feb-2019 Jaleesa Allan PhD Start : 29-Jul-2018 Active sulfamethoxazole 800 mg / trimethoprim 160 mg oral tablet (7 sources) Dihydrofolate Reductase Inhibitor Antibacterial, Sulfonamide Antimicrobial Start: 03-11-2019 End: 10-04-2021 take 2 tablets by mouth twice daily Sulfamethoxazole- Trimethoprim 800-160 MG Oral Tablet TAKE 2 TABLET Twice daily Quantity: 56 Refills: 0 Ordered: 09-May-2020 Marci SADIAKapil Start : 11-Mar-2019 End : 04-Oct-2021 Complete tobramycin 60 mg/ml inhalant solution (3 sources) Aminoglycoside Antibacterial Start: 11-28-2016 Tobramycin 300 MG/5ML Inhalation Nebulization Solution USE 1 UNIT DOSE IN NEBULIZER TWICE DAILY FOR 28 DAYS ON, AND 28 DAYS OFF. Quantity: 1 Refills: 6 Jaleesa Allan PhD Start : 28-Nov-2016 Active 56 x 5 ML Plas Cont Trikafta 100-50-75 & 150 MG Oral Tablet Therapy Pack (12 sources) Start: 09-09-2019 take 2 tablets by mouth once daily in the evening Trikafta 100-50-75 & 150 MG Oral Tablet Therapy Pack Trikafta take 2 Tabs (elexacaftor 100mg/tezacaftor 50mg/ivacaftor 75mg) PO Q AM and 1 Tab (ivacaftor 150mg) PO Q Evening with fatty foods Quantity: 1 Refills: 11 Jaleesa Allan PhD Start : 09-Sep-2019 Active 84 Tablet Pack Trikafta 100-50-75 & 150 MG Oral Tablet Therapy Pack (11 sources) Start: 09-09-2019 take 2 tablets by mouth once daily in the evening Trikafta 100-50-75 & 150 MG Oral Tablet Therapy Pack Trikafta take 2 Tabs (elexacaftor 100mg/tezacaftor 50mg/ivacaftor 75mg) PO Q AM and 1 Tab (ivacaftor 150mg) PO Q Evening with fatty foods Quantity: 1 Refills: 6 Ordered: 04-Oct-2021 Jaleesa Allan PhD Start : 09-Sep-2019 Active Start: 09-09-2019 take 2 tablets by mo uth once daily in the evening Trikafta 100-50-75 & 150 MG Oral Tablet Therapy Pack Trikafta take 2 Tabs (elexacaftor 100mg/tezacaftor 50mg/ivacaftor 75mg) PO Q AM and 1 Tab (ivacaftor 150mg) PO Q Evening with fatty foods Quantity: 1 Refills: 11 Ordered: 09-Mar-2020 Jaleesa Allan PhD Start : 09-Sep-2019 Active water 1000 mg/ml injectable solution (15 sources) Start: 07-29-2018 Sterile Water for Injection Injection Solution Instill 3 ml sterile water to reconstitute each vial of Colistin Quantity: 3 Refills: 0 Jaleesa Allan PhD Start : 29-Jul-2018 Active 25 x 10 ML Vial Problems Active Problems Problem Classification Problem Date Documented Date Episodic/Chronic Anxiety disorders (20 sources) Anxiety; Translations: [Anxiety state, unspecified] Onset: 04-23-2023 04-23-2023 Chronic Bacterial infection; unspecified site (20 sources) Mycobacterial infection (excluding tuberculosis AND leprosy); Translations: [Infection by methicillin sensitive Staphylococcus aureus] Onset: 04-23-2023 09-18-2023 Episodic Cardiac dysrhythmias (17 sources) Paroxysmal supraventricular tachycardia; Translations: [Paroxysmal supraventricular tachycardia] Onset: 04-23-2023 04-23-2023 Chronic Cardiac dysrhythmias (11 sources) Palpitations; Translations: [Palpitations] Episodic Cystic fibrosis (20 sources) Diabetes mellitus associated with cystic fibrosis; Translations: [Exocrine pancreatic manifestation co-occurrent and due to cystic fibrosis] Onset: 07-25-2021 07-25-2021 Chronic Diabetes mellitus with complications (1 source) Type 1 diabetes mellitus with hyperglycemia; Translations: [TYPE 1 DM W/HYPERGLYCEMIA] Onset: 01-12-2022 Chronic Diabetes mellitus without complication (5 sources) Diabetes mellitus; Translations: [Type 2 diabetes mellitus without complications] Onset: 07-25-2021 07-25-2021 Chronic Fluid and electrolyte disorders (1 source) Dehydration; Translations: [Dehydration] Episodic Gastroduodenal ulcer (except hemorrhage) (20 sources) Duodenal erosion; Translations: [Duodenal ulcer, unspecified as acute or chronic, without hemorrhage or perforation, without mention of obstruction] Onset: 04-23-2023 04-23-2023 Chronic Immunizations and screening for infectious disease (11 sources) Patient encounter status; Translations: [Other specified vaccination] Episodic Mycoses (20 sources) Candidiasis of skin; Translations: [Candidiasis of skin and nails] Onset: 07-25-2021 07-25-2021 Episodic Nonspecific chest pain (4 sources) Other chest pain; Translations: [OTHER CHEST PAIN] Onset: 01-10-2022 Episodic Other aftercare (1 source) alf (current) use of insulin; Translations: [SENIOR CARE CURRENT USE OF INSULIN] Onset: 01-12-2022 Episodic Other aftercare (1 source) Other long-term (current) drug therapy; Translations: [OTH SENIOR CARE CURRENT DRUG THERAPY] Onset: 01-12-2022 Episodic Other injuries and conditions due to external causes (1 source) Lower limb nerve lesion; Translations: [Injury of unspecified nerve at lower leg level, left leg, initial encounter] Episodic Other liver diseases (20 sources) Cirrhosis of liver; Translations: [Cirrhosis of liver without mention of alcohol] Onset: 04-23-2023 04-23-2023 Chronic Other liver diseases (2 sources) Unspecified cirrhosis of liver; Translations: [Unspecified cirrhosis of liver (CMS/HCC)] Onset: 04-23-2023 Chronic Other nutritional; endocrine; and metabolic disorders (10 sources) Body mass index 25-29 - overweight; Translations: [Body Mass Index 25.0-25.9, adult] Episodic Other nutritional; endocrine; and metabolic disorders (1 source) Overweight in adulthood with body mass index of 25 or more but less than 30; Translations: [Body Mass Index 25.0-25.9, adult] Episodic Other screening for suspected conditions (not mental disorders or infectious disease) (2 sources) Abnormal findings on diagnostic imaging of other specified body structures; Translations: [Abnormal findings on diagnostic imaging of other specified body structures] Onset: 09-18-2023 Chronic Other upper respiratory infections (2 sources) Chronic sinusitis, unspecified; Translations: [Chronic sinusitis, unspecified] Onset: 09-18-2023 Chronic Other upper respiratory infections (1 source) Acute upper respiratory infection; Translations: [Acute upper respiratory infection, unspecified] Episodic Pneumonia (except that caused by tuberculosis or sexually transmitted disease) (3 sources) Infective pneumonia; Translations: [Pneumonia, unspecified organism] Onset: 07-25-2021 07-25-2021 Episodic Residual codes; unclassified (1 source) Patient's other noncompliance with medication regimen; Translations: [PT OTH NONCOMPLIANCE W/ MED REGIMEN] Onset: 01-12-2022 Episodic Unclassified (3 sources) CONTACT W/AND (SUSP) EXPOS COVID-19; Translations: [CONTACT W/AND (SUSP) EXPOS COVID-19] Onset: 01-12-2022 Viral infection (3 sources) Viral disease; Translations: [Viral infection, unspecified] Episodic Viral infection (1 source) COVID-19; Translations: [COVID-19] Onset: 03-05-2022 Past or Other Problems Problem Classification Problem Date Documented Da te Episodic/Chronic Abdominal hernia (20 sources) Bilateral inguinal hernia; Translations: [Umbilical hernia] Resolved: 12-04-2016 Episodic Administrative/social admission (13 sources) 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 worker packager involved; Translations: [table worker packager involved in patient's care] Onset: 04-24-2023 Episodic Administrative/social admission (15 sources) table worker packager involved; Translations: [table worker packager involved in patient's care] Other and unspecified benign neoplasm (20 sources) Benign polyp of colon; Translations: [Benign neoplasm of colon] Onset: 04-23-2023 04-23-2023 Episodic Comment on above: Added by Problem Lis t Migration; 2013-07-05; Other ear and sense organ disorders (20 sources) Ototoxicity; Translations: [Other disorders of ear] Onset: 04-23-2023 04-23-2023 Episodic Other lower respiratory disease (1 source) Dyspnea; Translations: [Shortness of breath] Onset: 07-25-2021 07-25-2021 Episodic Other lower respiratory disease (1 source) Cough; Translations: [Cough] Onset: 07-25-2021 Resolved: 08-24-2021 08-24-2021 Episodic Other nutritional; endocrine; and metabolic disorders (20 sources) Weight loss; Translations: [Loss of weight] Resolved: 12-04-2016 Episodic Other nutritional; endocrine; and metabolic disorders (11 sources) Overweight; Translations: [Overweight] Resolved: 10-04-2021 Episodic Other screening for suspected conditions (not mental disorders or infectious disease) (20 sources) Liver function tests abnormal; Translations: [Other abnormal blood chemistry] Onset: 04-23-2023 04-23-2023 Episodic Residual codes; unclassified (20 sources) Insomnia; Translations: [Insomnia, unspecified] Onset: 04-23-2023 04-23-2023 Episodic Residual codes; unclassified (1 source) H/O: Disorder; Translations: [Personal history of other specified conditions] Onset: 07-25-2021 07-25-2021 Episodic Residual codes; unclassified (2 sources) Insomnia, unspecified; Translations: [Insomnia, unspecified] Onset: 04-23-2023 Episodic Unclassified (20 sources) Never smoked tobacco; Translations: [Never a smoker] Unclassified (12 sources) Patient encounter status; Translations: [Encounter for immunization] Unclassified (1 source) CONTACT W/AND (SUSP) EXPOS COVID-19; Translations: [CONTACT W/AND (SUSP) EXPOS COVID-19] Onset: 03-01-2022 Unclassified (6 sources) Onset: 09-18-2023 09-18-2023 NEGATED: Highlighted row has not occurred!Residual codes; unclassified (20 sources) Disease Episodic Results Test Name Value Interpretation Reference Range Facility Bacteria identifiedon 2023 Bacteria identified Respiratory culture Nom (Unsp spec) Test: Respiratory Culture/Smear Specimen Source: TRACHEAL WASH Specimen Type: Fluid Specimen Date: 10/01/2023 2:11 PM Result Date: 10/03/2023 1:03 PM Result Status: Final result Abnormal: Yes Resulting Lab: [facility] [address] [address] CULTURE (4+) Abundant Methicillin Resistant Staphylococcus aureus (MRSA) (Abnormal) Methicillin (Oxacillin) resistant Staphylococci are resistant to all currently available Penicillins, Beta-lactam/Beta-lactamase inhibitor combinations (including Ampicillin/Sulbactam, Amoxicillin/Clavulanate and Pipercillin/Tazobactam), Carbapenems and Cephalosporins (except Ceftaroline). STAIN (3+) Moderate Polymorphonuclear leukocytes (3+) Moderate Gram positive cocci SUSCEPTIBILITY Methicillin Resistant Staphylococcus aureus (MRSA) METHOD MICROSCAN - CLINDAMYCIN -- Susceptible ERYTHROMYCIN -- Resistant OXACILLIN -- Resistant TETRACYCLINE -- Susceptible TRIMETHOPRIM/SULFAMETHOXAZOL E -- Susceptible VANCOMYCIN -- Susceptible Abnormal [facility] Comment on above: Performed By: #### 2 4321-2 #### SARAH Mcclain ([id number]) [facility] ([facility] [address] [place], [place] [id number] Bacteria identified Cystic fibrosis respiratory culture Nom (Sput) Test: Respiratory Culture, Cystic Fibrosis Specimen Source: BAL Specimen Type: Fluid Specimen Date: 10/01/2023 1:45 PM Result Date: 10/04/2023 12:00 PM Result Status: Final result Abnormal: Yes Resulting Lab: [facility] [address] [place], [place] [id number] CULTURE (1+) Rare Methicillin Resistant Staphylococcus aureus (MRSA) (Abnormal) Methicillin (Oxacillin) resistant Staphylococci are resistant to all currently available Penicillins, Beta-lactam/Beta-lactamase inhibitor combinations (including Ampicillin/Sulbactam, Amoxicillin/Clavulanate and Pipercillin/Tazobactam), Carbapenems and Cephalosporins (except Ceftaroline). (1+) Rare Normal throat mariza SUSCEPTIBILITY Methicillin Resistant Staphylococcus aureus (MRSA) METHOD MICROSCAN - CLINDAMYCIN -- Susceptible ERYTHROMYCIN -- Resistant OXACILLIN -- Resistant TETRACYCLINE -- Susceptible TRIMETHOPRIM/SULFAMETHOXAZOL E -- Susceptible VANCOMYCIN -- Susceptible Abnormal [facility] Comment on above: Performed By: #### 2 4321-2 #### SARAH Mcclain ([id number]) [facility] ([facility] [address] [place] [id number] Fungus identifiedon 10-01-19 Fungus identified Cx Nom (Unsp spec) Test: Fungal Culture/Smear Specimen Source: TRACHEAL WASH Specimen Type: Fluid Specimen Date: 10/01/2023 2:11 PM Result Date: 10/09/2023 11:57 AM Result Status: Preliminary result Resulting Lab: [facility] [address] [place] [address] CULTURE Culture in progress, a report will be issued when positive or after 2 weeks of incubation. STAIN No fungal elements seen Normal [facility] Comment on above: Performed By: #### 2 4321-2 #### SARAH Mcclain ([id number]) [facility] ([facility] [address] [place] [address] Fungus identified Cx Nom (Unsp spec) Test: Fungal Culture/Smear Specimen Source: BAL Specimen Type: Fluid Specimen Date: 10/01/2023 1:45 PM Result Date: 10/09/2023 11:57 AM Result Status: Preliminary result Resulting Lab: [facility] [address] [place] [address] CULTURE Culture in progress, a report will be issued when positive or after 2 weeks of incubation. STAIN No fungal elements seen Normal [facility] Comment on above: Performed By: #### 2 4321-2 #### SARAH Mcclain ([id number]) [facility] ([facility] [address] [place], [place] [id number] Glucose Test strip manual (B ld) [Mass/Vol]on 10-01-2023 Glucose [Mass/Vol] 223 mg/dL High 74-99 [facility] Comment on above: Performed By: #### 2 4321-2 #### SARAH Mcclain ([id number]) [facility] ([facility] [address] [place] [address] Glucose [Mass/Vol] 223 mg/dL High 74 - 99 mg/dL [facility] Interpretation and review of laboratory results Abnormal [facility] Mycobacterium sp identifiedo n 10-01-2023 Mycobacterium sp identified Org specific cx Nom (Unsp spec) Test: AFB Culture/Smear Specimen Source: TRACHEAL WASH Specimen Type: Fluid Specimen Date: 10/01/2023 2:11 PM Result Date: 10/08/2023 10:52 AM Result Status: Preliminary result Abnormal: Yes Resulting Lab: [facility] [address] [place] [address] CULTURE Acid Fast Bacilli (Abnormal) STAIN (4+) Abundant Acid fast bacilli Abnormal [facility] Comment on above: Performed By: #### 2 5264-2 #### SARAH Mcclain ([id number]) [facility] ([facility] [address] [place] [address] Mycobacterium sp identified Org specific cx Nom (Unsp spec) Test: AFB Culture/Smear Specimen Source: BAL Specimen Type: Fluid Specimen Date: 10/01/2023 1:45 PM Result Date: 10/07/2023 12:38 PM Result Status: Preliminary result Abnormal: Yes Resulting Lab: [facility] [address] [place] [address] CULTURE Acid Fast Bacilli (Abnormal) STAIN (4+) Abundant Acid fast bacilli Abnormal [facility] Comment on above: Performed By: #### 2 0591-2 #### SARAH Mcclain ([id number]) [facility] ([facility] [address] [place] [address] CT Chest WO contraston 09-18 1. Nonspecific apica l predominant peribronchial nodularity with diffuse bronchial wall thickening, bronchiectasis, and scattered tree-in-bud nodularities, findings in keeping with patient's acid-fast bacilli positive sputum cultures. Lingular and right upper lobe consolidation/infiltrates. Given the distribution consider a mycobacterium avium complex versus fortuitum infection/colonization. 2. Mucoid impaction within the posterior right upper lobe bronchi, consistent with patient's known history of cystic fibrosis. 3. Prominent and enlarged mediastinal and hilar lymph nodes, which are likely reactive. 4. Bilateral nonobstructing renal calculi. I personally reviewed the images/study, and I agree with the findings as stated above. This study was interpreted at [place], [place]. Signed by: Melanie Reinoso 09/19/2023 4:54 PM Dictation workstation: [id number] Interpreted By: Melanie Graves and Meyers Emily STUDY: CT CHEST WO IV CONTRAST; 09/18/2023 1:34 pm INDICATION: Signs/Symptoms:Pt grew AFB. Per medical record: 38-year-old male with history of cystic fibrosis. Presenting with tachypnea leukocytosis, and scattered infiltrates on chest radiograph. Sputum cultures positive for acid-fast bacilli. COMPARISON: CT abdomen pelvis 08/31/2011 ACCESSION NUMBER(S): [id number] ORDERING CLINICIAN: CARMELITA WATERS TECHNIQUE: Helical data acquisition of the chest was obtained without intravenous contrast. Images were reformatted in axial, coronal, and sagittal planes. FINDINGS: LUNGS AND AIRWAYS: The trachea and central airways are patent. No endobronchial lesion is seen. There is diffuse slightly apical predominant centrilobular nodularity (series 3, image 128 and 146). In addition, there is diffuse, extensive bronchial wall thickening, bronchiectasis, and scattered tree-in-bud nodularities most notably within the lung bases (series 3, image 26). No evidence of a cavitating lesion Multifocal parenchymal infiltrates versus atelectasis within the medial aspect of the right upper lobe and lingula. Further, there is mucoid impaction within the posterior right upper lobe bronchi (series 3, image 152 and 157). MEDIASTINUM AND LARRY, LOWER NECK AND AXILLA: The visualized thyroid gland is within normal limits. Prominent and enlarged mediastinal and hilar lymph nodes, which are likely reactive. For example, there is a 1.0 cm prevascular lymph node (series 2, image 135). Esophagus appears within normal limits as seen. HEART AND VESSELS: The thoracic aorta is normal in course and caliber. Main pulmonary artery and its branches are normal in caliber. No coronary artery calcifications are seen. Please note, the study is not optimized for evaluation of coronary arteries. The cardiac chambers are not enlarged. There is no pericardial effusion seen. UPPER ABDOMEN: Bilateral nonobstructing renal calculi. Otherwise, remaining subdiaphragmatic structures are unremarkable. CHEST WALL AND OSSEOUS STRUCTURES: Chest wall is within normal limits. No acute osseous pathology.There are no suspicious osseous lesions. [facility] Jordan Reinoso MD - 09/19/2023 Interpreted By: Melanie Reinoso and Meyers Emily STUDY: CT CHEST WO IV CONTRAST; 09/18/2023 1:34 pm INDICATION: Signs/Symptoms:Pt grew AFB. Per medical record: 38-year-old male with history of cystic fibrosis. Presenting with tachypnea leukocytosis, and scattered infiltrates on chest radiograph. Sputum cultures positive for acid-fast bacilli. COMPARISON: CT abdomen pelvis 08/31/2011 ACCESSION NUMBER(S): [id number] ORDERING CLINICIAN: CARMELITA WATERS TECHNIQUE: Helical data acquisition of the chest was obtained without intravenous contrast. Images were reformatted in axial, coronal, and sagittal planes. FINDINGS: LUNGS AND AIRWAYS: The trachea and central airways are patent. No endobronchial lesion is seen. There is diffuse slightly apical predominant centrilobular nodularity (series 3, image 128 and 146). In addition, there is diffuse, extensive bronchial wall thickening, bronchiectasis, and scattered tree-in-bud nodularities most notably within the lung bases (series 3, image 26). No evidence of a cavitating lesion Multifocal parenchymal infiltrates versus atelectasis within the medial aspect of the right upper lobe and lingula. Further, there is mucoid impaction within the posterior right upper lobe bronchi (series 3, image 152 and 157). MEDIASTINUM AND LARRY, LOWER NECK AND AXILLA: The visualized thyroid gland is within normal limits. Prominent and enlarged mediastinal and hilar lymph nodes, which are likely reactive. For example, there is a 1.0 cm prevascular lymph node (series 2, image 135). Esophagus appears within normal limits as seen. HEART AND VESSELS: The thoracic aorta is normal in course and caliber. Main pulmonary artery and its branches are normal in caliber. No coronary artery calcifications are seen. Please note, the study is not optimized for evaluation of coronary arteries. The cardiac chambers are not enlarged. There is no pericardial effusion seen. UPPER ABDOMEN: Bilateral nonobstructing renal calculi. Otherwise, remaining subdiaphragmatic structures are unremarkable. CHEST WALL AND OSSEOUS STRUCTURES: Chest wall is within normal limits. No acute osseous pathology.There are no suspicious osseous lesions. IMPRESSION: 1. Nonspecific apical predominant peribronchial nodularity with diffuse bronchial wall thickening, bronchiectasis, and scattered tree-in-bud nodularities, findings in keeping with patient's acid-fast bacilli positive sputum cultures. Lingular and right upper lobe consolidation/infiltrates. Given the distribution consider a mycobacterium avium complex versus fortuitum infection/colonization. 2. Mucoid impaction within the posterior right upper lobe bronchi, consistent with patient's known history of cystic fibrosis. 3. Prominent and enlarged mediastinal and hilar lymph nodes, which are likely reactive. 4. Bilateral nonobstructing renal calculi. I personally reviewed the images/study, and I agree with the findings as stated above. This study was interpreted at [facility], [place], [place]. Signed by: Melanie Reinoso 09/19/2023 4:54 PM Dictation workstation: [id number] [facility] Work Phone: CT Chest WO contrastOrdered By: Jordan Reinoso on 09-19-2023 [facility] Work Phone: Bacteria identifiedon 2023 Bacteria identified Cystic fibrosis respiratory culture Nom (Sput) Test: Respiratory Culture, Cystic Fibrosis Specimen Source: SPUTUM Specimen Type: Fluid Specimen Date: 09/18/2023 2:46 PM Result Date: 09/21/2023 12:00 PM Result Status: Final result Abnormal: Yes Resulting Lab: [facility] [address] [address] CULTURE (3+) Moderate Normal throat mariza (1+) Rare Methicillin Resistant Staphylococcus aureus (MRSA) (Abnormal) Methicillin (Oxacillin) resistant Staphylococci are resistant to all currently available Penicillins, Beta-lactam/Beta-lactamase inhibitor combinations (including Ampicillin/Sulbactam, Amoxicillin/Clavulanate and Pipercillin/Tazobactam), Carbapenems and Cephalosporins (except Ceftaroline). SUSCEPTIBILITY Methicillin Resistant Staphylococcus aureus (MRSA) METHOD MICROSCAN - CLINDAMYCIN -- Susceptible ERYTHROMYCIN -- Resistant OXACILLIN -- Resistant TETRACYCLINE -- Susceptible TRIMETHOPRIM/SULFAMETHOXAZOL E -- Susceptible VANCOMYCIN -- Susceptible Abnormal [facility] Comment on above: Performed By: #### 2 777-1 #### SARAH Mcclain ([id number]) [facility] ([facility] [address] [place] [address] CT CHEST WO IV CONTRASTon CT CHEST WO IV CONTRAST Interpreted By: Melanie Reinoso and Meyers Emily STUDY: CT CHEST WO IV CONTRAST; 09/18/2023 1:34 pm INDICATION: Signs/Symptoms:Pt grew AFB. Per medical record: 38-year-old male with history of cystic fibrosis. Presenting with tachypnea leukocytosis, and scattered infiltrates on chest radiograph. Sputum cultures positive for acid-fast bacilli. COMPARISON: CT abdomen pelvis 08/31/2011 ACCESSION NUMBER(S): [id number] ORDERING CLINICIAN: CARMELITA WATERS TECHNIQUE: Helical data acquisition of the chest was obtained without intravenous contrast. Images were reformatted in axial, coronal, and sagittal planes. FINDINGS: LUNGS AND AIRWAYS: The trachea and central airways are patent. No endobronchial lesion is seen. There is diffuse slightly apical predominant centrilobular nodularity (series 3, image 128 and 146). In addition, there is diffuse, extensive bronchial wall thickening, bronchiectasis, and scattered tree-in-bud nodularities most notably within the lung bases (series 3, image 26). No evidence of a cavitating lesion Multifocal parenchymal infiltrates versus atelectasis within the medial aspect of the right upper lobe and lingula. Further, there is mucoid impaction within the posterior right upper lobe bronchi (series 3, image 152 and 157). MEDIASTINUM AND LARRY, LOWER NECK AND AXILLA: The visualized thyroid gland is within normal limits. Prominent and enlarged mediastinal and hilar lymph nodes, which are likely reactive. For example, there is a 1.0 cm prevascular lymph node (series 2, image 135). Esophagus appears within normal limits as seen. HEART AND VESSELS: The thoracic aorta is normal in course and caliber. Main pulmonary artery and its branches are normal in caliber. No coronary artery calcifications are seen. Please note, the study is not optimized for evaluation of coronary arteries. The cardiac chambers are not enlarged. There is no pericardial effusion seen. UPPER ABDOMEN: Bilateral nonobstructing renal calculi. Otherwise, remaining subdiaphragmatic structures are unremarkable. CHEST WALL AND OSSEOUS STRUCTURES: Chest wall is within normal limits. No acute osseous pathology.There are no suspicious osseous lesions. IMPRESSION: 1. Nonspecific apical predominant peribronchial nodularity with diffuse bronchial wall thickening, bronchiectasis, and scattered tree-in-bud nodularities, findings in keeping with patient's acid-fast bacilli positive sputum cultures. Lingular and right upper lobe consolidation/infiltrates. Given the distribution consider a mycobacterium avium complex versus fortuitum infection/colonization. 2. Mucoid impaction within the posterior right upper lobe bronchi, consistent with patient's known history of cystic fibrosis. 3. Prominent and enlarged mediastinal and hilar lymph nodes, which are likely reactive. 4. Bilateral nonobstructing renal calculi. I personally reviewed the images/study, and I agree with the findings as stated above. This study was interpreted at [place], [place]. Signed by: Melanie Reinoso 09/19/2023 4:54 PM Dictation workstation: [id number] Normal [facility] CT Chest WO contraston 09-17 Radiology Study observation (narrative) [facility] Work Phone: Fungus identifiedon 09-18-19 24 Fungus identified Cx Nom (Unsp spec) Test: Fungal Culture/Smear Specimen Source: SPUTUM Specimen Type: Fluid Specimen Date: 09/18/2023 2:46 PM Result Date: 09/20/2023 1:22 PM Result Status: Final result Abnormal: Yes Resulting Lab: [facility] [id number] [place] [address] CULTURE (1+) Rare Kaylan albicans (Abnormal) STAIN (2+) Few Yeast with pseudohyphae Abnormal [facility] Comment on above: Performed By: #### 2 777-1 #### SARAH Mcclain ([id number]) [facility] ([facility] [address] [place] [address] Mycobacterium sp identifiedo n 09-18-2023 Mycobacterium sp identified Org specific cx Nom (Unsp spec) Test: AFB Culture/Smear Specimen Source: SPUTUM Specimen Type: Fluid Specimen Date: 09/18/2023 2:46 PM Result Date: 10/01/2023 3:59 PM Result Status: Preliminary result Abnormal: Yes Resulting Lab: [facility] [address] [place] [address] CULTURE Isolated: Mycobacterium abscessus (Abnormal) Identification and/or Susceptibility testing performed at:[facility] [address] [address] STAIN (3+) Moderate Acid fast bacilli Abnormal [facility] Comment on above: Performed By: #### 2 4321-2 #### SARAH Mcclain ([id number]) [facility] ([facility] [address] [place] [address] Spirometryon 09-18-2023 FEF 25-75 2.79 L/s [facility] Work Phone: Comment on above: 66% FEV1 3.87 liters [facility] Work Phone: Comment on above: 88% FEV1/FVC 73 % [facility] Work Phone: FVC 5.27 liters [facility] Work Phone: Comment on above: 96% PEF 9.83 L/s [facility] Work Phone: [facility] Work Phone: Albumin/Creatinineon 023 Albumin/Creatinin e DL <= 20 mg/L (U) [Mass ratio] 43.7 ug/mg Creat High <30.0 [facility] Comment on above: Performed By: #### 1 4959-1 #### SARAH Mcclain ([id number]) [facility] [facility] [address] [place], [place] [id number] Albumin/Creatinine DL <= 20 mg/L (U) [Mass ratio]on 04-24-2023 Albumin DL <= 20 mg/L (U) [Mass/Vol] 9.3 mg/L Normal Not established [facility] Comment on above: Performed By: #### 1 4959-1 #### SARAH Mcclain ([id number]) [facility] ([facility] [address] [place] [address] 07779 Creatinine (U) [Mass/Vol] 21.3 mg/dL Normal 20.0-370.0 [facility] Comment on above: Performed By: #### 1 4959-1 #### SARAH Mcclain ([id number]) [facility] ([facility] [address] [place] [address] 20797 Bacteria identifiedon 2022 Bacteria identified Cystic fibrosis respiratory culture Nom (Sput) Test: Respiratory Culture, Cystic Fibrosis Specimen Source: SPUTUM Specimen Type: Fluid Specimen Date: 04/24/2023 11:09 AM Result Date: 04/28/2023 11:49 AM Result Status: Final result Abnormal: Yes Resulting Lab: [facility] [address] [place] [address] 13645 CULTURE (3+) Moderate Normal throat mariza (1+) Rare Methicillin Resistant Staphylococcus aureus (MRSA) (Abnormal) Methicillin (Oxacillin) resistant Staphylococci are resistant to all currently available Penicillins, Beta-lactam/Beta-lactamase inhibitor combinations (including Ampicillin/Sulbactam, Amoxicillin/Clavulanate and Pipercillin/Tazobactam), Carbapenems and Cephalosporins (except Ceftaroline). SUSCEPTIBILITY Methicillin Resistant Staphylococcus aureus (MRSA) METHOD MICROSCAN - CLINDAMYCIN -- Susceptible ERYTHROMYCIN -- Resistant OXACILLIN -- Resistant TETRACYCLINE -- Susceptible TRIMETHOPRIM/SULFAMETHOXAZOL E -- Susceptible VANCOMYCIN -- Susceptible Abnormal [facility] Comment on above: Performed By: #### 2 777-1 #### SARAH Mcclain ([id number]) [facility] ([facility] [address] [place] [address] 87708 Basic metabolic 2000 panelon 04-24-2023 Anion gap [Moles/Vol] 12 mmol/L Normal 10-20 [facility] Comment on above: Performed By: #### 2 4321-2 #### SARAH Mcclain ([id number]) [facility] ([facility]) [address] [place] [address] 09948 Calcium [Mass/Vol] 9.2 mg/dL Normal 8.6-10.6 [facility] Comment on above: Performed By: #### 2 4321-2 #### SARAH Mcclain ([id number]) [facility] ([facility] [address] [place] [address] Chloride [Moles/Vol] 95 mmol/L Low 98-107 [facility] Comment on above: Performed By: #### 2 4321-2 #### SARAH Mcclain ([id number]) [facility] ([facility] [address] [place] [address] CO2 [Moles/Vol] 29 mmol/L Normal 21-32 [facility] Comment on above: Performed By: #### 2 4321-2 #### SARAH Mcclain ([id number]) [facility] ([facility] [address] [place] [address] Creatinine [Mass/Vol] 0.88 mg/dL Normal 0.50-1.30 [facility] Comment on above: Performed By: #### 2 4321-2 #### SARAH Mcclain ([id number]) [facility] ([facility] [address] [place] [address] 42660 GFR/1.73 sq M.predicted MDRD (S/P/Bld) [Vol rate/Area] mL/min/{1.73_m2} Normal >60 [facility] Comment on above: Result Comment: Calc ulations of estimated GFR are performed using the 2020 CKD-EPI Study Refit equation without the race variable for the IDMS-Traceable creatinine methods. https://jasn.asnjournals.org/content/early/ASN.0962899288 Performed By: #### 2 4321-2 #### SARAH Mcclain ([id number]) [facility] ([facility] [address] [place] [address] 74484 Glucose [Mass/Vol] 591 mg/dL Critically high 74-99 [facility] Comment on above: Performed By: #### 2 4321-2 #### SARAH Mcclain ([id number]) [facility] ([facility] [address] [place] [address] 54112 Potassium [Moles/Vol] 4.8 mmol/L Normal 3.5-5.3 [facility] Comment on above: Performed By: #### 2 4321-2 #### SARAH Mcclain ([id number]) [facility] ([facility] [address] [place] [address] 63756 Sodium [Moles/Vol] 131 mmol/L Low 136-145 [facility] Comment on above: Performed By: #### 2 4321-2 #### SARAH HARRIS L ([id number]) [facility] ([facility]) [address] [place] [address] 70873 Urea nitrogen [Mass/Vol] 15 mg/dL Normal 6-23 [facility] Comment on above: Performed By: #### 2 4321-2 #### SARAH Mcclain ([id number]) [facility] ([facility]) [address] [place] [address] 31657 CBC W Auto Differential pane l (Bld)on 04-24-2023 Basophils (Bld) [#/Vol] 0.09 x10*3/uL Normal 0.00-0.10 [facility] Comment on above: Performed By: #### 5 7021-8 #### SARAH Mcclain ([id number]) [facility] ([facility] [address] [place] [address] 56477 Basophils/100 WBC (Bld) 0.9 % Normal 0.0-2.0 [facility] Comment on above: Performed By: #### 5 7021-8 #### SARAH Mcclain ([id number]) [facility] ([facility]) [address] [place] [address] 98549 Eosinophils (Bld) [#/Vol] 0.27 x10*3/uL Normal 0.00-0.70 [facility] Comment on above: Performed By: #### 5 7021-8 #### SARAH Mcclain ([id number]) [facility] ([facility] [address] [place] [address] 10134 Eosinophils/100 WBC (Bld) 2.8 % Normal 0.0-6.0 [facility] Comment on above: Performed By: #### 5 7021-8 #### SARAH Mcclain ([id number]) [facility] ([facility] [address] [place] [address] 01344 Erythrocyte distribution width (RBC) [Ratio] 13.4 % Normal 11.5-14.5 [facility] Comment on above: Performed By: #### 5 7021-8 #### SARAH Mcclain ([id number]) [facility] ([facility] [address] [place] [address] 74989 Hematocrit (Bld) [Volume fraction] 44.0 % Normal 41.0-52.0 [facility] Comment on above: Performed By: #### 5 7021-8 #### SARAH Mcclain ([id number]) [facility] ([facility] [address] [place] [address] Hemoglobin (Bld) [Mass/Vol] 14.3 g/dL Normal 13.5-17.5 [facility] Comment on above: Performed By: #### 5 7021-8 #### SARAH Mcclain ([id number]) [facility] ([facility] [address] [place] [address] Immature granulocytes (Bld) [#/Vol] 0.04 x10*3/uL Normal 0.00-0.70 [facility] Comment on above: Performed By: #### 5 7021-8 #### SARAH Mcclain ([id number]) [facility] ([facility]) [address] [place] [address] 56018 Immature granulocytes/100 WBC (Bld) 0.4 % Normal 0.0-0.9 [facility] Comment on above: Result Comment: Hannah ture Granulocyte Count (IG) includes promyelocytes, myelocytes and metamyelocytes but does not include bands. Percent differential counts (%) should be interpreted in the context of the absolute cell counts (cells/UL). Performed By: #### 5 7021-8 #### SARAH Mcclain ([id number]) [facility] ([facility]) [address] [place] [address] 15536 Lymphocytes (Bld) [#/Vol] 2.66 x10*3/uL Normal 1.20-4.80 [facility] Comment on above: Performed By: #### 5 7021-8 #### SARAH Mcclain ([id number]) [facility] ([facility]) [address] [place] [address] 86196 Lymphocytes/100 WBC (Bld) 28.1 % Normal 13.0-44.0 [facility] Comment on above: Performed By: #### 5 7021-8 #### SARAH Mcclain ([id number]) [facility] ([facility] [address] [place] [address] MCH (RBC) [Entitic mass] 27.7 pg Normal 26.0-34.0 [facility] Comment on above: Performed By: #### 5 7021-8 #### SARAH HARRIS L (97798) [facility] ([facility]) [address] [place] [address] 54946 MCHC (RBC) [Mass/Vol] 32.5 g/dL Normal 32.0-36.0 [facility] Comment on above: Performed By: #### 5 7021-8 #### SARAH SCHMOTZER L ([id number]) [facility] ([facility]) [address] [place] [address] 96336 MCV (RBC) [Entitic vol] 85 fL Normal 80-100 [facility] Comment on above: Performed By: #### 5 7021-8 #### SARAH HARRIS L ([id number]) [facility] ([facility] [address] [place] [address] 85897 Monocytes (Bld) [#/Vol] 0.54 x10*3/uL Normal 0.10-1.00 [facility] Comment on above: Performed By: #### 5 7021-8 #### SARAH FIGUEREDOMOBEHZADER L ([id number]) [facility] ([facility] [address] [place] [address] 17533 Monocytes/100 WBC (Bld) 5.7 % Normal 2.0-10.0 [facility] Comment on above: Performed By: #### 5 7021-8 #### SARAH FIGUEREDOMOTZER L ([id number]) [facility] ([facility]) [address] [place] [address] 58892 Neutrophils (Bld) [#/Vol] 5.88 x10*3/uL Normal 1.20-7.70 [facility] Comment on above: Result Comment: Perc ent differential counts (%) should be interpreted in the context of the absolute cell counts (cells/uL). Performed By: #### 5 7021-8 #### SARAH FIGUEREDOMOTZER L ([id number]) [facility] ([facility] [address] [place] [address] Neutrophils/100 WBC (Bld) 62.1 % Normal 40.0-80.0 [facility] Comment on above: Performed By: #### 5 7021-8 #### SARAH Mcclain (64903) [facility] ([facility] [address] [place] [address] 13652 Nucleated RBC/100 WBC (Bld) [Ratio] 0.0 /100 WBCs Normal 0.0-0.0 [facility] Comment on above: Performed By: #### 5 7021-8 #### SARAH Mcclain (33805) [facility] ([facility] [address] [place] [address] 31852 Platelet mean volume (Bld) [Entitic vol] 9.7 fL Normal 7.5-11.5 [facility] Comment on above: Performed By: #### 5 7021-8 #### SARAH Mcclain ([id number]) [facility] ([facility]) [address] [place] [address] 88427 Platelets (Bld) [#/Vol] 362 x10*3/uL Normal 150-450 [facility] Comment on above: Performed By: #### 5 7021-8 #### SARAH Mcclain ([id number]) [facility] ([facility]) [address] [place] [address] 91422 RBC (Bld) [#/Vol] 5.16 x10*6/uL Normal 4.50-5.90 [facility] Comment on above: Performed By: #### 5 7021-8 #### SARAH Mcclain (80332) [facility] ([facility] [address] [place] [address] 70144 WBC (Bld) [#/Vol] 9.5 x10*3/uL Normal 4.4-11.3 [facility] Comment on above: Performed By: #### 5 7021-8 #### SARAH Mcclain ([id number]) [facility] ([facility] [address] [place] [address] 57018 Calcidiolon 04-24-2023 25-hydroxyvitamin D3 [Mass/Vol] 14 ng/mL Low 30-100 [facility] Comment on above: Order Comment: Defic iency: < 20 ng/ml Insufficiency: 20-29 ng/ml Sufficiency: 30-100 ng/ml This assay accurately quantifies the sum of Vitamin D3, 25-Hydroxy and Vitamin D2,25-Hydroxy. Performed By: #### 1 989-3 #### SARAH Mcclain ([id number]) [facility] ([facility] [address] [place], [place] [address] Fungus identifiedon 04-24-20 23 Fungus identified Cx Nom (Unsp spec) Test: Fungal Culture/Smear Specimen Source: SPUTUM Specimen Type: Fluid Specimen Date: 04/24/2023 11:09 AM Result Date: 05/06/2023 4:27 PM Result Status: Final result Abnormal: Yes Resulting Lab: [facility] [address] [place], [place] [address] CULTURE (1+) Rare Kaylan glabrata (Abnormal) (1+) Rare Kaylan dubliniensis (Abnormal) STAIN No fungal elements seen Abnormal [facility] Comment on above: Performed By: #### 2 777-1 #### SARAH Mcclain (47931) [facility] ([facility]) [address] [place] [address] 59366 Gamma glutamyl transferaseon 04-24-2023 Gamma glutamyl transferase [Catalytic activity/Vol] 187 U/L High 5-64 [facility] Comment on above: Performed By: #### 2 324-2 #### SARAH Mcclain ([id number]) [facility] ([facility] [address] [place] [address] 61498 HbA1c (Bld) [Mass fraction]o n 04-24-2023 Average glucose Estimated from glycated hemoglobin (Bld) [Mass/Vol] 326 mg/dL Normal Not Established [facility] Comment on above: Order Comment: Diagn osis of Crjuvnso-VmhgweEfc-Kdaeajrh: < or = 5.6%Increased risk for developing diabetes: 5.7-6.4%Diagnostic of diabetes: > or = 6.5%Monitoring of DiabetesAge (y)....................... Therapeutic Goal (%)Adults: >18.........................<7.0Pediatrics: 13-18...................<7.5Pediatrics: 7-12....................<8.0Pediatrics: 0-6..................... 7.5-8.5American Diabetes Association. Diabetes Care 33(S1)Jul 2009 Performed By: #### 2 777-1 #### SARAH Mcclain ([id number]) [facility] ([facility] [address] [place] [address] Hemoglobin A1c/Hemoglobin.to yariel 04-24-2023 HbA1c (Bld) [Mass fraction] 13.0 % High see below [facility] Comment on above: Order Comment: Diagn osis of Fwgeitar-MipnykQhv-Ssbmehyi: < or = 5.6%Increased risk for developing diabetes: 5.7-6.4%Diagnostic of diabetes: > or = 6.5%Monitoring of DiabetesAge (y)....................... Therapeutic Goal (%)Adults: >18.........................<7.0Pediatrics: 13-18...................<7.5Pediatrics: 7-12....................<8.0Pediatrics: 0-6..................... 7.5-8.5American Diabetes Association. Diabetes Care 33(S1)Jul 2009 Performed By: #### 2 777-1 #### SARAH Mcclain (29298) [facility] ([facility] [address] [place] [address] 86689 Hepatic function 2000 panelo n 04-24-2023 Albumin BCP dye [Mass/Vol] 4.0 g/dL Normal 3.4-5.0 [facility] Comment on above: Performed By: #### 2 4325-3 #### SARAH Mcclain ([id number]) [facility] ([facility] [address] [place] [address] 11367 ALP [Catalytic activity/Vol] 247 U/L High 33-120 [facility] Comment on above: Performed By: #### 2 4325-3 #### SARAH Mcclain (25824) [facility] ([facility] [address] [place] [address] 72113 ALT With P-5'-P [Catalytic activity/Vol] 60 U/L High 10-52 [facility] Comment on above: Result Comment: Shanon ents treated with Sulfasalazine may generate falsely decreased results for ALT. Performed By: #### 2 4325-3 #### SARAH Mcclain (78188) [facility] ([facility] [address] [place] [address] 32603 AST With P-5'-P [Catalytic activity/Vol] 42 U/L High 9-39 [facility] Comment on above: Performed By: #### 2 4325-3 #### SARAH Mcclain ([id number]) [facility] ([facility] [address] [place] [address] 52305 Bilirubin [Mass/Vol] 0.5 mg/dL Normal 0.0-1.2 [facility] Comment on above: Performed By: #### 2 4325-3 #### SARAH Mcclain (93233) [facility] ([facility] [address] [place] [address] 89400 Bilirubin.direct [Mass/Vol] 0.1 mg/dL Normal 0.0-0.3 [facility] Comment on above: Performed By: #### 2 4325-3 #### SARAH Mcclain (73507) [facility] ([facility] [address] [place] [address] Protein [Mass/Vol] 7.4 g/dL Normal 6.4-8.2 [facility] Comment on above: Performed By: #### 2 4325-3 #### SARAH Mcclain (17854) [facility] ([facility] [address] [place] [address] IgEon 04-24-2023 IgE Qn 14 IU/mL Normal 0-214 [facility] Comment on above: Performed By: #### 1 9113-0 #### SARAH Mcclain (81330) [facility] ([facility] [address] [place] [address] 56893 Lipid 1996 panelon Cholesterol [Mass/Vol] 124 mg/dL Normal 0-199 [facility] Comment on above: Result Comment: Age Desirable Borderline High High 0-19 Y 0 - 169 170 - 199 >/= 200 20-24 Y 0 - 189 190 - 224 >/= 225 >24 Y 0 - 199 200 - 239 >/= 240 All ranges are based on fasting samples. Specific therapeutic targets will vary based on patient-specific cardiac risk. Pediatric guidelines reference:Pediatrics 2011, 128(S5).Adult guidelines reference: NCEP ATPIII Guidelines,KIRBY 2001, 258:2486-97 Venipuncture immediately after or during the administration of Metamizole may lead to falsely low results. Testing should be performed immediately prior to Metamizole dosing. Performed By: #### 2 4331-1 #### SARAH Mcclain ([id number]) [facility] ([facility] [address] [place] [address] Cholesterol in HDL [Mass/Vol] 35.9 mg/dL Normal [facility] Comment on above: Result Comment: Age Very Low Low Normal High 0-19 Y < 35 < 40 40-45 ---- 20-24 Y ---- < 40 >45 ---- >24 Y ---- < 40 40-60 >60 Performed By: #### 2 4331-1 #### SARAH Mcclain (84840) [facility] ([facility] [address] [place] [address] Cholesterol in LDL [Mass/Vol] 55 mg/dL Normal <=99 [facility] Comment on above: Result Comment: Near Borderline AGE Desirable Optimal High High Very High 0-19 Y 0 - 109 --- 110-129 >/= 130 ---- 20-24 Y 0 - 119 --- 120-159 >/= 160 ---- >24 Y 0 - 99 100-129 130-159 160-189 >/=190 Performed By: #### 2 4331-1 #### SARAH Mcclain (52360) [facility] ([facility] [address] [place] [address] 61003 Cholesterol in VLDL [Mass/Vol] 33 mg/dL Normal 0-40 [facility] Comment on above: Performed By: #### 2 4331-1 #### SARAH Mcclain (13253) [facility] ([facility] [address] [place] [address] 00555 CHOLESTEROL/HDL RATIO 3.5 Normal [facility] Comment on above: Result Comment: Ref Values Desirable < 3.4 High Risk > 5.0 Performed By: #### 2 4331-1 #### SARAH Mcclain (50403) [facility] ([facility] [address] [place] [address] 56531 NON HDL CHOLESTEROL 88 mg/dL Normal 0-149 [facility] Comment on above: Result Comment: Age Desirable Borderline High High Very High 0-19 Y 0 - 119 120 - 144 >/= 145 >/= 160 20-24 Y 0 - 149 150 - 189 >/= 190 ---- >24 Y 30 mg/dL above LDL Cholesterol goal Performed By: #### 2 4331-1 #### SARAH Mcclain ([id number]) [facility] ([facility] [address] [place] [address] 68348 Triglyceride [Mass/Vol] 165 mg/dL High 0-149 [facility] Comment on above: Result Comment: Age Desirable Borderline High High Very High 0 D-90 D 19 - 174 ---- ---- ---- 91 D- 9 Y 0 - 74 75 - 99 >/= 100 ---- 10-19 Y 0 - 89 90 - 129 >/= 130 ---- 20-24 Y 0 - 114 115 - 149 >/= 150 ---- >24 Y 0 - 149 150 - 199 200- 499 >/= 500 Venipuncture immediately after or during the administration of Metamizole may lead to falsely low results. Testing should be performed immediately prior to Metamizole dosing. 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 cx Nom (Unsp spec) Test: AFB Culture/Smear Specimen Source: SPUTUM Specimen Type: Fluid Specimen Date: 04/24/2023 11:09 AM Result Date: 05/16/2023 5:11 PM Result Status: Edited Result - FINAL Abnormal: Yes Resulting Lab: [facility] [address] [place] [address] 23305 CULTURE Isolated: Acid Fast Bacilli (Abnormal) Digested with Oxalic acid 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, Rapid grower STAIN No acid fast bacilli seen Abnormal [facility] Comment on above: Performed By: #### 2 777-1 #### SARAH Mcclain ([id number]) [facility] ([facility] [address] [place] [address] 86698 Phosphateon 04-24-2023 Phosphate [Mass/Vol] 4.3 mg/dL Normal 2.5-4.9 [facility] Comment on above: Result Comment: The performance characteristics of phosphorus testing in heparinized plasma have been validated by the individual laboratory site where testing is performed. Testing on heparinized plasma is not approved by the FDA; however, such approval is not necessary. Performed By: #### 2 777-1 #### SARAH Mcclain ([id number]) [facility] ([facility] [employer] [address] [place] [address] 64233 Retinolon 04-24-2023 Retinol [Mass/Vol] 0.41 mg/L Normal 0.30-1.20 [facility] Comment on above: Performed By: #### 2 777-1 #### SARAH Mcclain ([id number]) [facility] ([facility] [address] [place] [address] 17373 Retinol [Mass/Vol]on 023 Annotation comment [Interpretation] Narrative Normal Normal [facility] Comment on above: Result Comment: This test was developed and its performance characteristics determined by [facility]. It has not been cleared or approved by the US Food and Drug Administration. This test was performed in a CLIA certified laboratory and is intended for clinical purposes. Performed By: [facility] [address] [place] [address] 83061 Panel Coverer: Chiki Valencia MD, PhD CLIA Number: [id number] Performed By: #### 2 777-1 #### SARAH Mcclain ([id number]) [facility] ([facility] [employer] [employer] [address] [place] [address] 33601 Retinyl palmitate [Mass/Vol] <0.02 Normal 0.00-0.10 [facility] Comment on above: Performed By: #### 2 777-1 #### SARAH Mcclain ([id number]) [facility] ([facility] [employer] [employer] [address] [place] [address] 39692 Urinalysis microscopic panel Auto Ql (U)on 04-24-2023 Mucus Auto (Urine sed) [#/Area] 1+ /LPF Normal Reference range not established. [facility] Comment on above: Performed By: #### 5 3315-8 #### SARAH Mcclain ([id number]) [facility] ([facility] [employer] [employer] [address] [place] [address] RBC Auto (Urine sed) [#/Area] NONE Normal NONE, 1-2, 3-5 [facility] Comment on above: Performed By: #### 5 3315-8 #### SARAH Mcclain ([id number]) [facility] ([facility] [employer] [address] [place] [address] 85477 WBC Auto (Urine sed) [#/Area] 1-5 Normal 1-5, NONE [facility] Comment on above: Performed By: #### 5 3315-8 #### SARAH Mcclain ([id number]) [facility] ([facility] [employer] [address] [place] [address] 86943 VITAMIN Del 04-24-2023 Alpha tocopherol [Mass/Vol] 2.9 mg/L Low 5.5-18.0 [facility] Comment on above: Result Comment: This test was developed and its performance characteristics determined by [facility]. It has not been cleared or approved by the [place] Food and Drug Administration. This test was performed in a CLIA certified laboratory and is intended for clinical purposes. Performed By: #### 2 777-1 #### SARAH Mcclain ([id number]) [facility] ([facility] [employer] [address] [place] [address] 32361 Beta+gamma tocopherol [Mass/Vol] 0.7 mg/L Normal 0.0-6.0 [facility] Comment on above: Result Comment: Perf ormed By: [facility] [address] [place] [address] 66568 Panel Coverer: Chiki Valencia MD, PhD CLIA Number: [id number] Performed By: #### 2 777-1 #### SARAH Mcclain ([id number]) [facility] ([facility] [address] [place] [address] 09544 Covid-19 PCR (CVDTBH)on 02-06 SARS-CoV-2 (COVID-19) RNA CAROL+probe Ql (Unsp spec) Detected Critically abnormal NOT DETECTED [facility] Comment on above: Result Comment: This test is not yet approved or cleared by the [place] FDA. When there are no FDA-approved or cleared tests available, and other criteria are met, FDA can make tests available under an emergency access mechanism called an Emergency Use Authorization (EUA). The EUA for this test is supported by the [place] Vice President of Health and Human Service's declaration that circumstances exist to justify the emergency use of in vitro diagnostics for the detection and/or diagnosis of the virus that causes COVID-19. This EUA will remain in effect for the duration of the COVID-19 declaration justifying emergency of IVDs, unless it is terminated or revoked by the FDA (after which the test may no longer be used). Performed By: #### C VDTBH #### [facility] [address] [place] [address] Dr. Alisa rUibe ACETONE SERUMon 01-10-2022 ACETONE Negative Normal NEGATIVE [facility] Comment on above: Performed By: #### A CETON #### [facility] [address] [place] [address] Dr. Alisa Uribe CBC AUTO DIFFon 01-10-2022 BASO # 0.1 103/ul Normal 0.0-0.1 [facility] Comment on above: Performed By: #### C BC #### [facility] [address] [place] [address] Dr. Alisa Uribe Basophils/100 WBC (Bld) 0.5 % Normal 0.2-2.0 [facility] Comment on above: Performed By: #### C BC #### [facility] [address] [place] [address] Dr. Alisa Uribe EO # 0.3 103/ul Normal 0.0-0.7 [facility] Comment on above: Performed By: #### C BC #### [facility] [address] [place] [address] Dr. Alisa Uribe Eosinophils/100 WBC (Bld) 3.0 % Normal 0.9-7.0 [facility] Comment on above: Performed By: #### C BC #### [facility] [address] [place] [address] Dr. Alisa Uribe Erythrocyte distribution width (RBC) [Ratio] 12.7 % Normal 11.0-15.0 [facility] Comment on above: Performed By: #### C BC #### [facility] [address] [place] [address] Dr. Alisa Uribe Hematocrit (Bld) [Volume fraction] 40.9 % Critically low 42.0-54.0 [facility] Comment on above: Performed By: #### C BC #### [facility] [address] [place] [address] Dr. Alisa Uribe Hemoglobin (Bld) [Mass/Vol] 13.6 g/dL Critically low 14.0-18.0 [facility] Comment on above: Performed By: #### C BC #### [facility] [address] [place] [address] Dr. Alisa Uribe IG # 0.07 10e3/ul Critically high 0.00-0.03 [facility] Comment on above: Performed By: #### C BC #### [facility] [address] [place] [address] Dr. Alisa Uribe IG % 0.7 % Critically high 0.0-0.5 [facility] Comment on above: Performed By: #### C BC #### [facility] [address] [place] [address] Dr. Alisa Uribe LYMPH # 1.9 103/ul Normal 1.2-3.8 [facility] Comment on above: Performed By: #### C BC #### [facility] [address] [place] [address] Dr. Alisa Uribe Lymphocytes/100 WBC (Bld) 20.6 % Normal 20.5-60.0 [facility] Comment on above: Performed By: #### C BC #### [facility] [address] [place] [address] Dr. Alisa Uribe MANUAL DIFF REQ NO Normal [facility] Comment on above: Performed By: #### C BC #### [facility] [address] [place] [address] Dr. Alisa Uribe MCH (RBC) [Entitic mass] 29.2 pg Normal 25.9-34.0 [facility] Comment on above: Performed By: #### C BC #### [facility] [address] [place] [address] Dr. Alisa Uribe MCHC (RBC) [Mass/Vol] 33.3 g/dL Normal 29.9-35.2 [facility] Comment on above: Performed By: #### C BC #### [facility] [address] [place] [address] Dr. Alisa Uribe MCV (RBC) [Entitic vol] 87.8 fL Normal 80.0-94.0 [facility] Comment on above: Performed By: #### C BC #### [facility] [address] [place] [address] Dr. Alisa Uribe MONO # 0.6 103/ul Normal 0.3-0.8 [facility] Comment on above: Performed By: #### C BC #### [facility] [address] [place] [address] Dr. Alisa Uribe Monocytes/100 WBC (Bld) 6.1 % Normal 1.7-12.0 [facility] Comment on above: Performed By: #### C BC #### [facility] [address] [place] [address] Dr. Alisa Uribe NEUT # 6.5 103/ul Normal 1.4-6.5 [facility] Comment on above: Performed By: #### C BC #### [facility] [address] [place] [address] Dr. Alisa Uribe Neutrophils/100 WBC (Bld) 69.1 % Normal 43.0-75.0 [facility] Comment on above: Performed By: #### C BC #### [facility] [address] [place] [address] Dr. Alisa Uribe Platelet mean volume (Bld) [Entitic vol] 9.7 fL Normal 9.5-13.5 [facility] Comment on above: Performed By: #### C BC #### [facility] [address] [place] [address] Dr. Alisa Uribe PLT 270 103/ul Normal 150-450 [facility] Comment on above: Performed By: #### C BC #### [facility] [address] [address] [address] Alisa Uribe RBC 4.66 106/ul Critically low 4.70-6.10 [facility] Comment on above: Performed By: #### C BC #### [facility] [id number] Alisa Uribe WBC 9.4 103/ul Normal 4.0-11.0 [facility] Comment on above: Performed By: #### C BC #### [facility] [address] [address] [address] Alisa Uribe Covid-19 PCR (CVDTB)on SARS-CoV-2 (COVID-19) RNA CAROL+probe Ql (Unsp spec) Not detected Normal NOT DETECTED [facility] Comment on above: Result Comment: When diagnostic testing is negative, the possibility of a false negative should be considered in the context of a patient's recent exposures and the presence of clinical signs and symptoms consistent with SARS-CoV-2. This test is not yet approved or cleared by the [place] FDA. When there are no FDA-approved or cleared tests available, and other criteria are met, FDA can make tests available under an emergency access mechanism called an Emergency Use Authorization (EUA). The EUA for this test is supported by the [place] of Health and Human Service's declaration that circumstances exist to justify the emergency use of in vitro diagnostics for the detection and/or diagnosis of the virus that causes COVID-19. This EUA will remain in effect for the duration of the COVID-19 declaration justifying emergency of IVDs, unless it is terminated or revoked by the FDA (after which the test may no longer be used). Performed By: #### C VDTBH #### [facility] [address] [place] [address] Dr. Alisa Uribe POINT OF CARE GLUCOSEon Glucose [Mass/Vol] 104 mg/dL Normal 74-106 [facility] Comment on above: Performed By: #### P OCGLUC #### [facility] [address] [address] [address] Alisa Uribe Glucose [Mass/Vol] 86 mg/dL Normal 74-106 [facility] Comment on above: Performed By: #### P OCGLUC #### [facility] [address] [place] [address] Dr. Alisa Uribe PROF 14(COMP METB)on 022 Albumin [Mass/Vol] 3.4 g/dL Normal 3.4-5.0 [facility] Comment on above: Performed By: #### C MP, HSTROPN #### [facility] [address] [place] [address] Dr. Alisa Uribe Albumin/Globulin [Mass ratio] 0.9 {ratio} Normal [facility] Comment on above: Performed By: #### C MP, HSTROPN #### [facility] [address] [place] [address] Dr. Alisa Uribe ALP [Catalytic activity/Vol] 360 U/L Critically high 46-116 [facility] Comment on above: Performed By: #### C MP, HSTROPN #### [facility] [address] [place] [address] Dr. Alisa Uribe ALT [Catalytic activity/Vol] 53 U/L Normal 16-63 [facility] Comment on above: Performed By: #### C MP, HSTROPN #### [facility] [address] [place] [address] Dr. Alisa Uribe Anion gap [Moles/Vol] 10.6 mmol/L Normal [facility] Comment on above: Performed By: #### C MP, HSTROPN #### [facility] [address] [place] [address] Dr. Alisa Uribe AST [Catalytic activity/Vol] 27 U/L Normal 15-37 [facility] Comment on above: Performed By: #### C MP, HSTROPN #### [facility] [address] [place] [address] Dr. Alisa Uribe Bilirubin [Mass/Vol] 0.4 mg/dL Normal 0.2-1.0 [facility] Comment on above: Performed By: #### C MP, HSTROPN #### [facility] [address] [address] [address] Alisa Uribe Calcium [Mass/Vol] 8.9 mg/dL Normal 8.5-10.1 [facility] Comment on above: Performed By: #### C MP, HSTROPN #### [facility] [address] [address] [address] Alisa Uribe Chloride [Moles/Vol] 97 mmol/L Critically low 98-107 [facility] Comment on above: Performed By: #### C MP, HSTROPN #### [facility] [address] [address] [address] Alisa Uribe CO2 [Moles/Vol] 25.8 mmol/L Normal 21.0-32.0 [facility] Comment on above: Performed By: #### C MP, HSTROPN #### [facility] [address] [place] [address] Dr. Alisa Uribe Creatinine [Mass/Vol] 1.11 mg/dL Normal 0.70-1.30 [facility] Comment on above: Performed By: #### C MP, HSTROPN #### [facility] [address] [place] [address] Dr. Alisa Uribe EGFR-AF JAPANESE >60 Normal >=60 [facility] Comment on above: Performed By: #### C MP, HSTROPN #### [facility] [address] [place] [address] Dr. Alisa Uribe EGFR-NON AF JAPANESE >60 Normal >=60 [facility] Comment on above: Performed By: #### C MP, HSTROPN #### [facility] [address] [address] [address] Alisa Uribe Globulin (S) [Mass/Vol] 3.9 g/dL Normal [facility] Comment on above: Performed By: #### C MP, HSTROPN #### [facility] [address] [address] [address] Alisa Uribe Glucose [Mass/Vol] 650 mg/dL Critically high 74-106 [facility] Comment on above: Performed By: #### C MP, HSTROPN #### [facility] [address] [place] [address] Dr. Alisa Uribe Potassium [Moles/Vol] 4.4 mmol/L Normal 3.5-5.1 [facility] Comment on above: Performed By: #### C MP, HSTROPN #### [facility] [address] [place] [address] Dr. Alisa Uribe Protein [Mass/Vol] 7.3 g/dL Normal 6.4-8.2 [facility] Comment on above: Performed By: #### C TIANA, HSTROPN #### [facility] [address] [place] [address] Dr. Alisa Uribe Sodium [Moles/Vol] 129 mmol/L Critically low 136-145 [facility] Comment on above: Performed By: #### C MP, HSTROPN #### [facility] [address] [place] [address] Dr. Alisa Uribe Urea nitrogen [Mass/Vol] 9.0 mg/dL Normal 7.0-18.0 [facility] Comment on above: Performed By: #### C TIANA, HSTROPN #### [facility] [address] [place] [address] Dr. Alisa Uribe Urea nitrogen/Creatini ne [Mass ratio] 8.1 mg/mg Normal [facility] Comment on above: Performed By: #### C MP, HSTROPN #### [facility] [address] [place] [address] Dr. Alisa Uribe TROPONIN, HIGH SENSITIVITYon 01-10-2022 HSTROP 4.6 pg/mL Normal 4.0-76.1 [facility] Comment on above: Result Comment: CUT- OFF POINTS HAVE BEEN ESTABLISHED BASED ON THE FOURTH UNIVERSAL DEFINITIONS OF MYOCARDIAL INFARCTION. THE UPPER REFERENCE LIMIT (URL) OF TROPONIN, DEFINED THE 99TH PERCENTILE OF cTnI DISTRIBUTION IN A REFERENCE POPULATION, HAS BEEN CONFIRMED THE DECISION THRESHOLD FOR WI DIAGNOSIS. Performed By: #### H STROPN #### [facility] [address] [place], [place] [address] Dr. Alisa Uribe HSTROP <4.0 Normal 4.0-76.1 [facility] Comment on above: Result Comment: CUT- OFF POINTS HAVE BEEN ESTABLISHED BASED ON THE FOURTH UNIVERSAL DEFINITIONS OF MYOCARDIAL INFARCTION. THE UPPER REFERENCE LIMIT (URL) OF TROPONIN, DEFINED THE 99TH PERCENTILE OF cTnI DISTRIBUTION IN A REFERENCE POPULATION, HAS BEEN CONFIRMED THE DECISION THRESHOLD FOR WI DIAGNOSIS. Performed By: #### C MP, HSTROPN #### [facility] [address] [place], [place] [address] Dr. Alisa Uribe XR CHEST 1 Von 01-10-2022 XR CHEST 1 V EXAM: XR CHEST 1 V HISTORY: Left lower CHEST PAIN, UNSPECIFIED COMPARISON: Chest x-ray 03/08/2020 TECHNIQUE: Single frontal view chest x-ray FINDINGS: No lobar consolidation, large pleural effusions, pneumothorax, or acute bony abnormality. Cardiac size unremarkable. 9 mm right apical lung likely calcified pulmonary nodule. IMPRESSION: No radiographic evidence for acute chest abnormality. 9 mm right apical lung nodule opacities reflect pulmonary nodule, likely calcified. Electronically authenticated by: MELANIE MICHELLE Date: 2022-01-10 05:28 Normal [facility] Cult,Bloodon 11-01-2021 Cult,Blood Specimen Description .BLOOD Special Requests 10ML RAC Culture NO GROWTH 5 DAYS Report Status FINAL 11/01/2021 Normal [facility] Comment on above: Performed By: #### B C #### [facility] [address] [place] [address] Roofer Helper: Michael Mcintosh MD Basic Metabolic Panelon -2 Anion gap [Moles/Vol] 11 mmol/L 9 - 17 mmol/L [facility] Calcium [Mass/Vol] 9.5 mg/dL 8.6 - 10.4 mg/dL [facility] Chloride [Moles/Vol] 96 mmol/L Low 98 - 107 mmol/L [facility] CO2 [Moles/Vol] 28 mmol/L 20 - 31 mmol/L [facility] Creatinine [Mass/Vol] 0.92 mg/dL 0.70 - 1.20 mg/dL [facility] GFR >60 >60 mL/min [facility] GFR Non- >60 >60 mL/min [facility] Glucose [Mass/Vol] 160 mg/dL High 70 - 99 mg/dL [facility] Interpretation and review of laboratory results Abnormal [facility] Potassium [Moles/Vol] 3.8 mmol/L 3.7 - 5.3 mmol/L [facility] Sodium [Moles/Vol] 135 mmol/L 135 - 144 mmol/L [facility] Urea nitrogen (BldV) [Mass/Vol] 13 mg/dL 6 - 20 mg/dL [facility] Urea nitrogen/Creatini ne (Bld) [Mass ratio] 14 [facility] Basic Metabolic Profon 10-27 (cont.) Normal [facility] Comment on above: Result Comment: Aver age GFR for 30-39 years old: 107 mL/min/1.73sq m Chronic Kidney Disease: <60 mL/min/1.73sq m Kidney failure: <15 mL/min/1.73sq m eGFR calculated using average adult body mass. Additional eGFR calculator available at: [email or web address]_[email or web address] Performed By: #### C DP, BMP, TROPI #### [facility] [address] [place] [address] Roofer Helper: Michael Mcintosh MD Anion gap [Moles/Vol] 11 mmol/L Normal 03-24 [facility] Comment on above: Performed By: #### C DP, BMP, TROPI #### [facility] [address] [place] [address] Roofer Helper: Michael Mcintosh MD BUN/CRE Ratio 14 Normal - [facility] Comment on above: Performed By: #### C DP, BMP, TROPI #### [facility] [address] [place] [address] Roofer Helper: Michael Mcintosh MD Calcium [Mass/Vol] 9.5 mg/dL Normal 8.6-10.4 [facility] Comment on above: Performed By: #### C DP, BMP, TROPI #### [facility] [address] [place], [place] [id number] Roofer Helper: Michael Mcintosh MD Chloride [Moles/Vol] 96 mmol/L Low 98-107 [facility] Comment on above: Performed By: #### C DP, BMP, TROPI #### [facility] [address] [place], [place] [id number] Roofer Helper: Michael Mcintosh MD CO2 [Moles/Vol] 28 mmol/L Normal 20-31 [facility] Comment on above: Performed By: #### C DP, BMP, TROPI #### [facility] [address] [place], [place] [id number] Roofer Helper: Michael Mcintosh MD Creatinine [Mass/Vol] 0.92 mg/dL Normal 0.70-1.20 [facility] Comment on above: Performed By: #### C DP, BMP, TROPI #### [facility] [address] [place], [place] [id number] Roofer Helper: Michael Mcintosh MD GFR, Amer >60 Normal >60 [facility] Comment on above: Performed By: #### C DP, BMP, TROPI #### [facility] [address] [place], [place] [id number] Roofer Helper: Michael Mcintosh MD GFR,non Amer >60 Normal >60 [facility] Comment on above: Performed By: #### C DP, BMP, TROPI #### [facility] [address] [place], [place] [id number] Roofer Helper: Michael Mcintosh MD Glucose [Mass/Vol] 160 mg/dL High 70-99 [facility] Comment on above: Performed By: #### C DP, BMP, TROPI #### [facility] [address] [place], [place] [id number] Roofer Helper: Michael Mcintosh MD Potassium [Moles/Vol] 3.8 mmol/L Normal 3.7-5.3 [facility] Comment on above: Performed By: #### C DP, BMP, TROPI #### [facility] [address] [place] [address] Roofer Helper: Michael Mcintosh MD Sodium [Moles/Vol] 135 mmol/L Normal 135-144 [facility] Comment on above: Performed By: #### C DP, BMP, TROPI #### [facility] [address] [place], [place] [id number] Roofer Helper: Michael Mcintosh MD Staging: Normal [facility] Comment on above: Result Comment: Stag e 1: Some kidney damage normal GFR Stage 2: Mild kidney damage GFR 60-89 Stage 3: Moderate kidney damage GFR 30-59 Stage 4: Severe kidney damage GFR 15-29 Stage 5: Severe kidney damage GFR <15 ESRD - chronic treatment by dialysis or transplant Performed By: #### C DP, BMP, TROPI #### [facility] [address] [place] [address] Roofer Helper: Michael Mcintosh MD Urea nitrogen [Mass/Vol] 13 mg/dL Normal 6-20 [facility] Comment on above: Performed By: #### C DP, BMP, TROPI #### [place] [address] [place] [address] Roofer Helper: Michael Mcintosh MD CBC with Auto Differentialon 10-27-2021 Absolute Eos # <0.03 [facility] th Absolute Immature Granulocyte 0.06 [facility] Absolute Lymph # 1.67 [facility] He alth Absolute [place] # 1.14 [facility] lt Basophils (Bld) [#/Vol] 0.04 10*3/uL [facility] Basophils/100 WBC (Bld) 0 % 0 - 2 % [facility] Eosinophils/100 WBC (Bld) 0 % Low 1 - 4 % [facility] Hematocrit (Bld) [Volume fraction] 44.9 % 40.7 - 50.3 % [facility] Hemoglobin.gastro intestinal spec 1 Ql (Stl) 15.3 g/dL 13.0 - 17.0 g/dL [facility] Immature granulocytes/100 WBC (Bld) 1 % High 0 [facility] Interpretation and review of laboratory results Abnormal [facility] Lymphocytes/100 WBC (Bld) 16 % Low 24 - 43 % [facility] MCH (RBC) [Entitic mass] 30.2 pg 25.2 - 33.5 pg [facility] MCHC (RBC) [Mass/Vol] 34.1 g/dL 28.4 - 34.8 g/dL [facility] MCV (RBC) [Entitic vol] 88.6 fL 82.6 - 102.9 fL [facility] Monocytes/100 WBC (Bld) 11 % 3 - 12 % [facility] NRBC Automated 0.0 0.0 per 100 WBC [facility] Platelet distribution width (Bld) [Ratio] 12.3 % 11.8 - 14.4 % [facility] Platelet mean volume (Bld) [Entitic vol] 9.6 fL 8.1 - 13.5 fL [facility] Platelets (Bld) [#/Vol] 274 10*3/uL [facility] RBC (Bld) [#/Vol] 5.07 10*6/uL 4.21 - 5.7 7 m/uL [facility] Segmented neutrophils/100 WBC (Bld) 72 % High 36 - 65 % [facility] Segs Absolute 7.44 [facility] [#/Vol] 10.4 10*3/uL [facility] CBC with Diffon 10-27-2021 Abs. Basophil 0.04 k/uL Normal 0.00-0.20 [facility] Comment on above: Performed By: #### C DP, BMP, TROPI #### [facility] [address] [place] [address] Roofer Helper: Michael Mcintosh MD Abs. Eosinophil <0.03 Normal 0.00-0.44 [facility] Comment on above: Performed By: #### C DP, BMP, TROPI #### [facility] [address] [place] [address] Roofer Helper: Michael Mcintosh MD Abs.Imm.Granulocy te 0.06 k/uL Normal 0.00-0.30 [facility] Comment on above: Performed By: #### C DP, BMP, TROPI #### [address] [place] [address] Roofer Helper: Michael Mcintosh MD Abs.Neutrophil (Seg) 7.44 k/uL Normal 1.50-8.10 [facility] Comment on above: Performed By: #### C DP, BMP, TROPI #### [address] [place], [facility]83 Roofer Helper: Michael Mcintosh MD Basophils/100 WBC (Bld) 0 % Normal 0-2 [facility] Comment on above: Performed By: #### C DP, BMP, TROPI #### [address] [place], [facility]83 Roofer Helper: Michael Mcintosh MD Eosinophils/100 WBC (Bld) 0 % Low 1-4 [facility] Comment on above: Performed By: #### C DP, BMP, TROPI #### [address] [place], [facility]83 Roofer Helper: Michael Mcintosh MD Erythrocyte distribution width (RBC) [Ratio] 12.3 % Normal 11.8-14.4 [facility] Comment on above: Performed By: #### C DP, BMP, TROPI #### [address] [place], [facility]83 Roofer Helper: Michael Mcintosh MD Hematocrit (Bld) [Volume fraction] 44.9 % Normal 40.7-50.3 [facility] Comment on above: Performed By: #### C DP, BMP, TROPI #### [address] [place] [address] Roofer Helper: Michael Mcintosh MD Hemoglobin (Bld) [Mass/Vol] 15.3 g/dL Normal 13.0-17.0 [facility] Comment on above: Performed By: #### C DP, BMP, TROPI #### [facility] [address] [place], [place] [address] Roofer Helper: Michael Mcintosh MD Immature granulocytes/100 WBC (Bld) 1 % High 0 [facility] Comment on above: Performed By: #### C DP, BMP, TROPI #### [facility] [address] [place], [place] [address] Roofer Helper: Michael Mcintosh MD Lymphocytes (Bld) [#/Vol] 1.67 10*3/uL Normal 1.10-3.70 [facility] Comment on above: Performed By: #### C DP, BMP, TROPI #### [address] [place], [place] [address] Roofer Helper: Michael Mcintosh MD Lymphocytes/100 WBC (Bld) 16 % Low 24-43 [facility] Comment on above: Performed By: #### C DP, BMP, TROPI #### [address] [place], [place] [address] Roofer Helper: Michael Mcintosh MD MCH (RBC) [Entitic mass] 30.2 pg Normal 25.2-33.5 [facility] Comment on above: Performed By: #### C DP, BMP, TROPI #### [address] [place], [place] [address] Roofer Helper: Michael Mcintosh MD MCHC (RBC) [Mass/Vol] 34.1 g/dL Normal 28.4-34.8 [facility] Comment on above: Performed By: #### C DP, BMP, TROPI #### [place] [address] [place], [facility]83 Roofer Helper: Michael Mcintosh MD MCV (RBC) [Entitic vol] 88.6 fL Normal 82.6-102.9 [facility] Comment on above: Performed By: #### C DP, BMP, TROPI #### [place] [address] [place], [place] [id number] Roofer Helper: Michael Mcintosh MD Monocytes (Bld) [#/Vol] 1.14 10*3/uL Normal 0.10-1.20 [facility] Comment on above: Performed By: #### C DP, BMP, TROPI #### [address] [place], [place] [id number] Roofer Helper: Michael Mcintosh MD Monocytes/100 WBC (Bld) 11 % Normal 3-12 [facility] Comment on above: Performed By: #### C DP, BMP, TROPI #### [address] [place], [place] [id number] Roofer Helper: Michael Mcintosh MD Neutrophil (Seg) 72 % High 36-65 [facility] Comment on above: Performed By: #### C DP, BMP, TROPI #### [address] [place], [place] [id number] Roofer Helper: Michael Mcintosh MD NRBC Automated 0.0 per 100 WBC Normal 0.0 [facility] Comment on above: Performed By: #### C DP, BMP, TROPI #### [address] [place], [place] [id number] Roofer Helper: Michael Mcintosh MD Platelet mean volume (Bld) [Entitic vol] 9.6 fL Normal 8.1-13.5 [facility] Comment on above: Performed By: #### C DP, BMP, TROPI #### [address] [place], [place] [id number] Roofer Helper: Michael Mcintosh MD Platelets (Bld) [#/Vol] 274 10*3/uL Normal 138-453 [facility] Comment on above: Performed By: #### C DP, BMP, TROPI #### [facility] [address] [place], [place] [id number] Roofer Helper: Michael Mcintosh MD RBC (Bld) [#/Vol] 5.07 10*6/uL Normal 4.21-5.77 [facility] Comment on above: Performed By: #### C DP, BMP, TROPI #### [facility] [address] [place] [address] Roofer Helper: Michael Mcintosh MD WBC (Bld) [#/Vol] 10.4 10*3/uL Normal 3.5-11.3 [facility] Comment on above: Performed By: #### C DP, BMP, TROPI #### [facility] [address] [place], [place] [id number] Roofer Helper: Michael Mcintosh MD COVID-19, Rapidon 10-27-2021 SARS-CoV-2 (COVID-19) RNA CAROL+probe Ql (Unsp spec) Not detected Not Detected [facility] Comment on above: Rapid NAAT: The specimen is NEGATIVE for SARS-CoV-2, the novel coronavirus associated with COVID-19. The ID NOW COVID-19 assay is designed to detect the virus that causes COVID-19 in patients with signs and symptoms of infection who are suspected of COVID-19. An individual without symptoms of COVID-19 and who is not shedding SARS-CoV-2 virus would expect to have a negative (not detected) result in this assay. Negative results should be treated as presumptive and, if inconsistent with clinical signs and symptoms or necessary for patient management, should be tested with an alternative molecular assay. Negative results do not preclude SARS-CoV-2 infection and should not be used as the sole basis for patient management decisions. Fact sheet for Healthcare Providers: https://www.fda.gov/media/722134/download Fact sheet for Patients: https://www.fda.gov/media/309088/download Methodology: Isothermal Nucleic Acid Amplification Specimen Description .NASOPHARYNGEAL SWAB [facility] Flu A/B Ag Detectionon 10-27 Flu A Ag Detection Negative Normal NEG [facility] Comment on above: Result Comment: for Influenza A Antigen Performed By: #### F TARIK ####[facility] [place] [address] Lab Director: Michael Mcintosh MD Flu B Ag Detection Negative Normal NEG [facility] Comment on above: Result Comment: for Influenza B Antigen. Performed By: #### F TARIK ####[facility] [place] [address] lab Director: Michael Mcintosh MD Laboratory - Chemistry and C hemistry - challengeon 10-27-2021 GFR/1.73 sq M.predicted MDRD (S/P/Bld) [Vol rate/Area] [facility] Comment on above: Average GFR for 30-3 9 years old: 107 mL/min/1.73sq m Chronic Kidney Disease: <60 mL/min/1.73sq m Kidney failure: <15 mL/min/1.73sq m eGFR calculated using average adult body mass. Additional eGFR calculator available at: http://www.[employer]/multiple_crcl_2012.htm Stage 1: Some kidney damage normal GFR Stage 2: Mild kidney damage GFR 60-89 Stage 3: Moderate kidney damage GFR 30-59 Stage 4: Severe kidney damage GFR 15-29 Stage 5: Severe kidney damage GFR <15 ESRD - chronic treatment by dialysis or transplant Rapid influenza A/B antigens on 10-27-2021 Flu A Antigen Negative NEGATIVE [facility] Comment on above: for Influenza A Anti gen Flu B Antigen Negative NEGATIVE [facility] Comment on above: for Influenza B Anti gen. [id number] 10-27-2021 SARS-CoV-2 (COVID-19) RNA CAROL+probe Ql (Unsp spec) Not detected Normal NOTDET [facility] Comment on above: Result Comment: Rapid NAAT: The specimen is NEGATIVE for SARS-CoV-2, the novel coronavirus associated with COVID-19. The ID NOW COVID-19 assay is designed to detect the virus that causes COVID-19 in patients with signs and symptoms of infection who are suspected of COVID-19. An individual without symptoms of COVID-19 and who is not shedding SARS-CoV-2 virus would expect to have a negative (not detected) result in this assay. Negative results should be treated as presumptive and, if inconsistent with clinical signs and symptoms or necessary for patient management, should be tested with an alternative molecular assay. Negative results do not preclude SARS-CoV-2 infection and should not be used as the sole basis for patient management decisions. Fact sheet for Healthcare Providers: https://www.fda.gov/media/605281/download Fact sheet for Patients: https://www.fda.gov/media/656270/download Methodology: Isothermal Nucleic Acid Amplification Performed By: #### C OVRB ####[facility] [place] [address] Lab Director: Michael Mcintosh MD Troponinon 10-27-2021 Troponin, High Sens 19 ng/L Normal 0-22 [facility] Comment on above: Result Comment: High Sensitivity Troponin values cannot be compared with other Troponin methodologies. Patients with high levels of Biotin oral intake (i.e >5mg/day) may have falsely decreased Troponin levels. Samples collected within 8 hours of biotin intake may require additional information for diagnosis. Performed By: #### C DP, BMP, TROPI #### [facility] [address] [place] [address] Roofer Helper: Michael Mcintosh MD Troponin, High Sensitivity 19 ng/L 0 - 22 ng/L [facility] Comment on above: High Sensitivity Troponin values cannot be compared with other Troponin methodologies. Patients with high levels of Biotin oral intake (i.e >5mg/day) may have falsely decreased Troponin levels. Samples collected within 8 hours of biotin intake may require additional information for diagnosis. [facility] XR CHEST PORTABLEon 10-28-19 XR CHEST PORTABLE EXAMINATION: ONE XRAY VIEW OF THE CHEST 10/27/2021 5:48 pm COMPARISON: 07/17/2021 HISTORY: ORDERING SYSTEM PROVIDED HISTORY: cp TECHNOLOGIST PROVIDED HISTORY: cp FINDINGS: The lungs are without acute focal process. There is no effusion or pneumothorax. The cardiomediastinal silhouette is stable. The osseous structures are stable. IMPRESSION: No acute process. Interpreted by: Skip Coronel MD Signed by: Skip Coronel MD 10/27/21 Final result Normal [facility] No acute process. [facility] EXAMINATION: ONE XRAY VIEW OF THE CHEST 10/27/2021 5:48 pm COMPARISON: 07/17/2021 HISTORY: ORDERING SYSTEM PROVIDED HISTORY: cp TECHNOLOGIST PROVIDED HISTORY: cp FINDINGS: The lungs are without acute focal process. There is no effusion or pneumothorax. The cardiomediastinal silhouette is stable. The osseous structures are stable. [facility] Skip Coronel MD - 10/27/2021 EXAMINATION: ONE XRAY VIEW OF THE CHEST 10/27/2021 5:48 pm COMPARISON: 07/17/2021 HISTORY: ORDERING SYSTEM PROVIDED HISTORY: cp TECHNOLOGIST PROVIDED HISTORY: cp FINDINGS: The lungs are without acute focal process. There is no effusion or pneumothorax. The cardiomediastinal silhouette is stable. The osseous structures are stable. IMPRESSION: No acute process. [employer] Phone: Radiology Study observation (narrative) [employer] Phone: XR CHEST PORTABLEOrdered By: Skip Coronel on 10-27-2021 [facility] Phone: VITAMIN Del 10-21-2021 VITAMIN E [ALPHA TOCOPHEROL] 5.8 mg/L Low 5.9-19.4 [facility] Comment on above: Performed By: #### I GE #### [facility] [address] [place] [address] VITAMIN E [GAMMA TOCOPHEROL] 0.9 mg/L Normal 0.7-4.9 [facility] Comment on above: Result Comment: Refe rence intervals for alpha and gamma- tocopherol determined from National Health and Nutrition Examination Survey, 5717-4127. Individuals with alpha-tocopherol levels less than 5.0 mg/L are considered vitamin E deficient. Test(s) 911849-[id number] E(Alpha Tocopherol); 811870- Vitamin E(Gamma Tocopherol) was developed and its performance characteristics determined by [facility]. It has not been cleared or approved by the Food and Drug Administration. Performed By: #### I GE #### [facility] [address] [place] [address] VITAMIN Aon 10-18-2021 VITAMIN A 30.7 ug/dL Normal 18.9-57.3 [facility] Comment on above: Result Comment: Refe rence intervals for vitamin A determined from [facility] internal studies. Individuals with vitamin A less than 20 ug/dL are considered vitamin A deficient and those with serum concentrations less than 10 ug/dL are considered severely deficient. This test was developed and its performance characteristics determined by [facility]. It has not been cleared or approved by the Food and Drug Administration. Performed By: #### I GE #### [facility] [address] [place] [address] Cult, Respiratory CFon 10-10 Bacteria identified Cystic fibrosis respiratory culture Nom (Sput) Abnormal [facility] [address] Work Phone: RESPIRATORY CF CULTURE,BACTE RIAL.on 10-10-2021 RESPIRATORY CF CULTURE,BACTERIAL . PATIENT: BRAVO ALBRECHT LOCATION: [address]#: [id number] : 83 AGE: SEX: M ORDERED BY: JALEESA ALLAN SOURCE: THROAT/PHARYNX COLLECTED: 10/10/21 10:34 ANTIBIOTICS AT NEERAJ.: RECEIVED : 10/10/21 17:56 SITE: R E S U L T S RESPIRATORY CF CULTURE,BACTERIAL. FINAL 10/13/21 14:51 3+ NORMAL THROAT MARIZA. ISOLATE1 : Staphylococcus aureus 4+ METHICILLIN(OXACILLIN)SUSCEP TIBLE STAPHYLOCOCCI ARE SUSCEPTIBLE TO SEMI-SYNTHETIC PENICILLINS (OXACILLIN,NAFCILLIN, ETC),BETA-LACTAM/BETA-LACTAM ASE INHIBITOR COMBINATIONS(INCLUDING AMPICILLIN/SULBACTAM, AMOXICILLIN/CLAVULANATE AND PIPERACILLIN/TAZOBACTAM), CARBAPENEMS AND CEPHALOSPORINS APPROVED FOR USE BY THE FDA FOR STAPHYLOCOCCAL INFECTIONS. Organism S aureus Antibiotic BP INTRP Clindamycin R Erythromycin R Linezolid S Oxacillin S Trimeth/Sulfa S Tetracycline S Vancomycin S S=SUSCEPTIBLE I=INTERMEDIATE R=RESISTANT SDD=SUSCEPTIBLE DOSE DEPENDENT NS=NONSUSCEPTIBLE X=REPORTED IN ERROR Normal [facility] Comment on above: Performed By: #### I GE #### [facility] [address] [place] [address] ALBUMIN, URINE SPOTon 2021 ALBUMIN,URINE 15.2 mg/L Normal Not Established [facility] Comment on above: Performed By: #### I GE #### [facility] [address] 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 [address] CREATININE,URINE 51.0 mg/dL Normal 20.0 - 370.0 [facility] Comment on above: Performed By: #### I GE #### [facility] [address] [place] [address] APTTon 10-04-2021 aPTT Coag (Bld) [Time] 31 s Normal 26 - 39 [facility] Comment on above: Result Comment: THE APTT IS NO LONGER USED FOR MONITORING UNFRACTIONATED HEPARIN THERAPY. FOR MONITORING HEPARIN THERAPY, USE THE HEPARIN ASSAY. Performed By: #### U A #### [facility] [address] [place] [address] Activated Partial Thrombopla stin Timeon 10-04-2021 aPTT Coag (PPP) [Time] 31 s 26 - 39 [facility] [address] Work Phone: Comment on above: THE APTT IS NO LONGE R USED FOR MONITORING UNFRACTIONATED HEPARIN THERAPY. FOR MONITORING HEPARIN THERAPY, USE THE HEPARIN ASSAY. BONE DENSITY, DEXA 1 OR MORE SITES: AXIAL SKELETONon 10-04-2021 BONE DENSITY, DEXA 1 OR MORE SITES: AXIAL SKELETON Name: BRAVO ALBRECHT Date: 1985 Height: 71.0 in. Gender: Male Exam Date: 10/04/2021 Weight: 189.0 lbs. Indications: Cystic Fibrosis, DIABETES Fractures: Treatments: LEFT FEMUR - TOTAL The bone mineral density : 1.161 g/cm2 T-score : 0.4 % of young normal mean :105% Z-score : 0.6 % of age matched mean : 108% % change vs. Previous : -4.6% % change vs. Baseline : -4.6% LEFT FEMUR - NECK The bone mineral density : 0.980 g/cm2 T-score : -0.7 % of young normal mean: 92% Z-score : -0.5 % of age matched mean : 94% % change vs. Previous : -11.7% % change vs. Baseline : -11.7% SPINE L1-L4 The bone mineral density is 1.360 g/cm2 T-score : 1.2 % of young normal mean is 111% Z-score : 1.2 % of age matched mean is 111% % change vs. Previous : 0.1% % change vs. Baseline : 0.1% World Health Organization (WHO) criteria for post-menopausal, Women: Normal: T-score at or above -1 SD Osteopenia: T-score between -1 and -2.5 SD Osteoporosis: T-score at or below -2.5 SD 10-Year Fracture Risk: Major Osteoporotic Fracture N/A Hip Fracture N/A Reported Risk Factors None Interpretation: According to World Health Organization criteria, classification is normal. Followup recommended on September 2023 or sooner as clinically warranted. Electronically signed by: REJI ANGELES MD Normal [facility] C Reactive Protein, Serumon 10-04-2021 CRP [Mass/Vol] 0.26 mg/dL [facility] [address] Work Phone: Comment on above: REF VALUE< 1.00 C-REACTIVE PROTEINon 022 C-REACTIVE PROTEIN 0.26 mg/dL Normal [facility] Comment on above: Result Comment: REF VALUE < 1.00 Performed By: #### U A #### [facility] [address] [place] [address] CBC AND DIFFERENTIALon 10-04 % AUTOMATED IMMATURE GRAN 0.5 % Normal 0.0 - 0.9 [facility] Comment on above: Result Comment: Hannah ture Granulocyte Count (IG) includes promyelocytes, myelocytes and metamyelocytes but does not include bands. Percent differential counts (%) should be interpreted in the context of the absolute cell counts (cells/L). Performed By: #### U A #### [facility] [address] [place] [address] Basophils (Bld) [#/Vol] 0.07 10*3/uL Normal 0.00 - 0.10 [facility] Comment on above: Performed By: #### U A #### [facility] [address] [place] [address] Basophils/100 WBC (Bld) 0.8 % Normal 0.0 - 2.0 [facility] Comment on above: Performed By: #### U A #### [facility] [address] [place] [address] Eosinophils (Bld) [#/Vol] 0.30 10*3/uL Normal 0.00 - 0.70 [facility] Comment on above: Performed By: #### U A #### [facility] [address] [place] [address] Eosinophils/100 WBC (Bld) 3.3 % Normal 0.0 - 6.0 [facility] Comment on above: Performed By: #### U A #### [facility] [address] [place] [address] Erythrocyte distribution width (RBC) [Ratio] 13.2 % Normal 11.5 - 14.5 [facility] Comment on above: Performed By: #### U A #### [facility] [address] [place] [address] Hematocrit (Bld) [Volume fraction] 42.4 % Normal 41.0 - 52.0 [facility] Comment on above: Performed By: #### U A #### [facility] [address] [place] [address] Hemoglobin (Bld) [Mass/Vol] 15.0 g/dL Normal 13.5 - 17.5 [facility] Comment on above: Performed By: #### U A #### [facility] [address] [place] [address] Lymphocytes (Bld) [#/Vol] 2.30 10*3/uL Normal 1.20 - 4.80 [facility] Comment on above: Performed By: #### U A #### [facility] [address] [place] [address] Lymphocytes/100 WBC (Bld) 25.0 % Normal 13.0 - 44.0 [facility] Comment on above: Performed By: #### U A #### [facility] [address] [place] [address] MCHC (RBC) [Mass/Vol] 35.4 g/dL Normal 32.0 - 36.0 [facility] Comment on above: Performed By: #### U A #### [facility] [address] [place] [address] MCV (RBC) [Entitic vol] 86 fL Normal 80 - 100 [facility] Comment on above: Performed By: #### U A #### [facility] [address] [place] [address] Monocytes (Bld) [#/Vol] 0.62 10*3/uL Normal 0.10 - 1.00 [facility] Comment on above: Performed By: #### U A #### [facility] [address] [place] [address] Monocytes/100 WBC (Bld) 6.7 % Normal 2.0 - 10.0 [facility] Comment on above: Performed By: #### U A #### [facility] [address] [place] [address] Neutrophils (Bld) [#/Vol] 5.87 10*3/uL Normal 1.20 - 7.70 [facility] Comment on above: Performed By: #### U A #### [facility] [address] [place] [address] Neutrophils/100 WBC (Bld) 63.7 % Normal 40.0 - 80.0 [facility] Comment on above: Performed By: #### U A #### [facility] [address] [place] [address] NUCLEATED RBC 0.0 /100 WBC Normal 0.0-0.0 [facility] Comment on above: Performed By: #### U A #### [facility] [address] [place] [address] Platelets (Bld) [#/Vol] 250 10*3/uL Normal 150 - 450 [facility] Comment on above: Performed By: #### U A #### [facility] [address] [place] [address] RBC 4.95 x10E12/L Normal 4.50 - 5.90 [facility] Comment on above: Performed By: #### U A #### [facility] [address] [place] [address] WBC (Bld) [#/Vol] 9.2 10*3/uL Normal 4.4 - 11.3 [facility] Comment on above: Performed By: #### U A #### [facility] [address] [place] [address] COMPREHENSIVE PANELon 2021 Albumin [Mass/Vol] 4.5 g/dL Normal 3.4 - 5.0 [facility] Comment on above: Performed By: #### C MP #### [facility] [address] [place] [address] ALP [Catalytic activity/Vol] 205 U/L High 33 - 120 [facility] Comment on above: Performed By: #### C MP #### [facility] [address] [place] [address] ALT [Catalytic activity/Vol] 52 U/L Normal 10 - 52 [facility] Comment on above: Result Comment: Shanon ents treated with Sulfasalazine may generate falsely decreased results for ALT. Performed By: #### C MP #### [facility] [address] [place] [address] Anion gap [Moles/Vol] 17 mmol/L Normal 10 - 20 [facility] Comment on above: Performed By: #### C MP #### [facility] [address] [place] [address] AST [Catalytic activity/Vol] 34 U/L Normal 9 - 39 [facility] Comment on above: Performed By: #### C MP #### [facility] [address] [place] [address] Bilirubin [Mass/Vol] 0.7 mg/dL Normal 0.0 - 1.2 [facility] Comment on above: Performed By: #### C MP #### [facility] [address] [place] [address] Calcium [Mass/Vol] 9.5 mg/dL Normal 8.6 - 10.6 [facility] Comment on above: Performed By: #### C MP #### [facility] [address] [place] [address] Chloride [Moles/Vol] 100 mmol/L Normal 98 - 107 [facility] Comment on above: Performed By: #### C MP #### [facility] [address] [place] [address] Creatinine [Mass/Vol] 0.95 mg/dL Normal 0.50 - 1.30 [facility] Comment on above: Performed By: #### C MP #### [facility] [address] [place] [address] eGFR MALE >90 Normal >90 [facility] Comment on above: Result Comment: CALC ULATIONS OF ESTIMATED GFR ARE PERFORMED USING THE 2020 CKD-EPI STUDY REFIT EQUATION WITHOUT THE RACE VARIABLE FOR THE IDMS-TRACEABLE CREATININE METHODS. https://jasn.asnjournals.org/content//ASN.[email or web address] Performed By: #### C MP #### [facility] [address] [place] [address] Glucose [Mass/Vol] 341 mg/dL High 74 - 99 [facility] Comment on above: Performed By: #### C MP #### [facility] [address] [place] [address] HCO3 (Bld) [Moles/Vol] 26 mmol/L Normal 21 - 32 [facility] Comment on above: Performed By: #### C MP #### [facility] [address] [place] [address] Potassium [Moles/Vol] 4.3 mmol/L Normal 3.5 - 5.3 [facility] Comment on above: Performed By: #### C MP #### [facility] [address] [place] [address] Protein [Mass/Vol] 7.1 g/dL Normal 6.4 - 8.2 [facility] Comment on above: Performed By: #### C MP #### [facility] [address] [place] [address] Sodium [Moles/Vol] 139 mmol/L Normal 136 - 145 [facility] Comment on above: Performed By: #### C MP #### [facility] [address] [place] [address] Urea nitrogen [Mass/Vol] 13 mg/dL Normal 6 - 23 [facility] Comment on above: Performed By: #### C MP #### [facility] [address] [place] [address] Complete Blood Count + Diffe gaby 10-04-2021 Basophils/100 WBC (Bld) 0.8 % 0.0 - 2.0 [facility] [address] [facility] Work Phone: Erythrocyte distribution width (RBC) [Ratio] 13.2 % See Below [facility] [address] Work Phone: Comment on above: Reference Range: 11. 5 - 14.5 Hematocrit (Bld) [Volume fraction] 42.4 % See Below [facility] [address] Work Phone: Comment on above: Reference Range: 41. 0 - 52.0 Hemoglobin (Bld) [Mass/Vol] 15.0 g/dL See Below [facility] [address] Work Phone: Comment on above: Reference Range: 13. 5 - 17.5 Lymphocytes/100 WBC (Bld) 25.0 % See Below [facility] [address] Work Phone: Comment on above: Reference Range: 13. 0 - 44.0 MCHC (RBC) [Mass/Vol] 35.4 g/dL See Below [facility] [address] Work Phone: Comment on above: Reference Range: 32. 0 - 36.0 MCV (RBC) [Entitic vol] 86 fL 80 - 100 [facility] [address] Work Phone: Monocytes/100 WBC (Bld) 6.7 % 2.0 - 10.0 [facility] [address] Work Phone: Neutrophils/100 WBC (Bld) 63.7 % See Below [facility] [address] Work Phone: Comment on above: Reference Range: 40. 0 - 80.0 Platelets (Bld) [#/Vol] 250 10*3/uL 150 - 450 [facility] [address] Work Phone: RBC (Bld) [#/Vol] 4.95 {x10E12/L} See Below [facility] [address] Work Phone: Comment on above: Reference Range: 4.5 0 - 5.90 WBC (Bld) [#/Vol] 9.2 10*3/uL 4.4 - 11.3 [facility] [address] Work Phone: Complete Blood Count + Differential 0.07 {x10E9/L} See Below [facility] [address] [place] [address] Ctr Work Phone: Comment on above: Reference Range: 0.0 0 - 0.10 Complete Blood Count + Differential 0.30 {x10E9/L} See Below [address] Work Phone: Comment on above: Reference Range: 0.0 0 - 0.70 Complete Blood Count + Differential 0.62 {x10E9/L} See Below [address] Work Phone: Comment on above: Reference Range: 0.1 0 - 1.00 Complete Blood Count + Differential 2.30 {x10E9/L} See Below [address] Work Phone: Comment on above: Reference Range: 1.2 0 - 4.80 Complete Blood Count + Differential 5.87 {x10E9/L} See Below [address] Work Phone: Comment on above: Reference Range: 1.2 0 - 7.70 Complete Blood Count + Differential 3.3 % 0.0 - 6.[address] Work Phone: Complete Blood Count + Differential 0.5 % 0.0 - 0.[address] Work Phone: Comment on above: Immature Granulocyte Count (IG) includes promyelocytes, myelocytes and metamyelocytes but does not include bands. Percent differential counts (%) should be interpreted in the context of the absolute cell counts (cells/L). Complete Blood Count + Differential 0.0 {/100_WBC} 0.0-0.[address] Work Phone: Cult, Fungus +smearon 2021 Fungus identified Cx Nom (Unsp spec) Abnormal [address] Work Phone: FERRITINon 10-04-2021 FERRITIN 275 ug/L Normal 20 - 300 [facility] Comment on above: Performed By: #### F ERRI #### [facility] [address] [place], [place] [facility], [facility] [facility] [place]: BRAVO ALBRECHT LOCATION: [address]#: [id number] : 83 AGE: SEX: M ORDERED BY: JALEESA ALLAN SOURCE: THROAT/PHARYNX COLLECTED: 10/04/21 10:34 ANTIBIOTICS AT NEERAJ.: RECEIVED : 10/04/21 15:48 SITE: R Pietro Steven U L T S FUNGAL SMEAR FINAL 10/05/21 13:27 FLUORESCENT FUNGAL STAIN: NEGATIVE FUNGAL CULTURE/SM, [facility] [place]AL 10/06/21 14:49 ISOLATE1 : Kaylan dubliniensis COLONIES- 4 Normal [facility] Comment on above: Performed By: #### F UNCS #### [facility] [address] [place] [address] [place], [place] Ferritin, Serumon 10-04-2021 Ferritin [Mass/Vol] 275 ug/L 20 - 300 [facility] [address] Work Phone: GGTon 10-04-2021 Gamma glutamyl transferase [Catalytic activity/Vol] 228 U/L High 5 - 64 [facility] Comment on above: Performed By: #### I GE #### [facility] [address] [place], [place] Gamma Glutamyl Transferase, Serumon 10-04-2021 Gamma glutamyl transferase [Catalytic activity/Vol] 228 U/L above high threshold 5 - 64 [facility] [address] Work Phone: HEMOGLOBIN A1Con 10-04-2021 Glucose [Mass/Vol] 249 mg/dL Normal [facility] Comment on above: Performed By: #### U A #### [facility] [address] [place], [place] HbA1c (Bld) [Mass fraction] 10.3 % Abnormal [facility] Comment on above: Result Comment: Diag nosis of Diabetes-Adults Non-Diabetic: < or = 5.6% Increased risk for developing diabetes: 5.7-6.4% Diagnostic of diabetes: > or = 6.5% . Monitoring of Diabetes Age (y) Therapeutic Goal (%) Adults: >18 <7.0 Pediatrics: 13-18 <7.5 7-12 <8.0 0- 6 7.5-8.5 [place] [employer]. Diabetes Care 33(S1), Jul 2009. Performed By: #### U A #### [facility] [address] [address] Hemoglobin A1Con 10-04-2021 Glucose [Mass/Vol] 249 mg/dL [facility] [address] Work Phone: HbA1c (Bld) [Mass fraction] 10.3 % Abnormal [facility] [address] Work Phone: Comment on above: Diagnosis of Diabete s-Adults Non-Diabetic: < or = 5.6% Increased risk for developing diabetes: 5.7-6.4% Diagnostic of diabetes: > or = 6.5%. Monitoring of Diabetes Age (y) Therapeutic Goal (%) Adults: >18 <7.0 Pediatrics: 13-18 <7.5 7-12 <8.0 0- 6 7.5-8.5 [place] [employer]. Diabetes Care 33(S1), Jul 2009. IGEon 10-04-2021 IGE 12 IU/mL Normal 0 - 214 [facility] Comment on above: Performed By: #### I GE #### [facility] [address] [place] [address] IO Spirometryon 10-04-2021 IO Spirometry 5.23 1 [facility] [address] Work Phone: IO Spirometry 120 1 [facility] [address] Work Phone: IO Spirometry 110 1 [facility] [address] Work Phone: IO Spirometry 6.07 1 [facility] [address] Work Phone: IO Spirometry 112 1 [facility] [address] Work Phone: IO Spirometry 4.98 1 [facility] [address] Work Phone: IO Spirometry 82 1 [facility] [address] Work Phone: IRON + TIBCon 10-04-2021 % SATURATION 20 % Low 25 - 45 [facility] Comment on above: Performed By: #### I GE #### [facility] [address] [place] [address] Iron [Mass/Vol] 63 ug/dL Normal 35 - 150 [facility] Comment on above: Performed By: #### I GE #### [facility] [address] [place] [address] TIBC 313 ug/dL Normal 240 - 445 [facility] Comment on above: Performed By: #### I GE #### [facility] [address] [place] [address] Immunoglobulin E Level, Seru mon 10-04-2021 IgE Qn 12 {IU/mL} 0 - 214 [facility] [address] Work Phone: LIPID PANEL (CORONARY RISK 2 )on 10-04-2021 Cholesterol [Mass/Vol] 134 mg/dL Normal 0 - 199 [facility] Comment on above: Result Comment: . AGE DESIRABLE BORDERLINE HIGH HIGH 0-19 Y 0 - 169 170 - 199 >/= 200 20-24 Y 0 - 189 190 - 224 >/= 225 >24 Y 0 - 199 200 - 239 >/= 240 All ranges are based on fasting samples. Specific therapeutic targets will vary based on patient-specific cardiac risk. . Pediatric guidelines reference:Pediatrics 2011, 128(S5). Adult guidelines reference: NCEP ATPIII Guidelines, KIRBY 2001, 258:2486-97 . Venipuncture immediately after or during the administration of Metamizole may lead to falsely low results. Testing should be performed immediately prior to Metamizole dosing. Performed By: #### L IPID #### [facility] [address] [place] [address] Cholesterol in HDL [Mass/Vol] 30.9 mg/dL Abnormal [facility] Comment on above: Result Comment: . AGE VERY LOW LOW NORMAL HIGH 0-19 Y < 35 < 40 40-45 ---- 20-24 Y ---- < 40 >45 ---- >24 Y ---- < 40 40-60 >60 . Performed By: #### L IPID #### [facility] [address] [place] [address] Cholesterol in LDL [Mass/Vol] 25 mg/dL Normal 0 - 99 [facility] Comment on above: Result Comment: . NEAR BORD AGE DESIRABLE OPTIMAL HIGH HIGH VERY HIGH 0-19 Y 0 - 109 --- 110-129 >/= 130 ---- 20-24 Y 0 - 119 --- 120-159 >/= 160 ---- >24 Y 0 - 99 100-129 130-159 160-189 >/=190 . Performed By: #### L IPID #### [facility] [address] [place] [address] Cholesterol in VLDL [Mass/Vol] 78 mg/dL High 0 - 40 [facility] Comment on above: Performed By: #### L IPID #### [facility] [address] [place] [address] Cholesterol.total /Cholesterol in HDL [Mass ratio] 4.3 {ratio} Normal [facility] Comment on above: Result Comment: REF VALUES DESIRABLE < 3.4 HIGH RISK > 5.0 Performed By: #### L IPID #### [facility] [address] [place] [address] NON-HDL CHOLESTEROL 103 mg/dL Normal [facility] Comment on above: Result Comment: AGE DESIRABLE BORDERLINE HIGH HIGH VERY HIGH 0-19 Y 0 - 119 120 - 144 >/= 145 >/= 160 20-24 Y 0 - 149 150 - 189 >/= 190 ---- >24 Y 30 MG/DL ABOVE LDL CHOLESTEROL GOAL . Performed By: #### L IPID #### [facility] [address] [place] [address] Triglyceride [Mass/Vol] 389 mg/dL High 0 - 149 [facility] Comment on above: Result Comment: . AGE DESIRABLE BORDERLINE HIGH HIGH VERY HIGH 0 D-90 D 19 - 174 ---- ---- ---- 91 D- 9 Y 0 - 74 75 - 99 >/= 100 ---- 10-19 Y 0 - 89 90 - 129 >/= 130 ---- 20-24 Y 0 - 114 115 - 149 >/= 150 ---- >24 Y 0 - 149 150 - 199 200- 499 >/= 500 . Venipuncture immediately after or during the administration of Metamizole may lead to falsely low results. Testing should be performed immediately prior to Metamizole dosing. Performed By: #### L IPID #### [facility] [address] [place] [address] Laboratory - Chemistry and C hemistry - challengeon 10-04-2021 Albumin BCP dye [Mass/Vol] 4.5 g/dL 3.4 - 5.0 [facility] [address] Work Phone: Albumin Ql (U) 15.2 mg/L See Below [facility] [address] Work Phone: Comment on above: Reference Range: Not Established Albumin/Creatinin e DL <= 20 mg/L (U) [Mass ratio] 29.8 {ug/mg_crt} 0.0 - 30.0 [facility] [address] Work Phone: ALP [Catalytic activity/Vol] 205 U/L above high threshold 33 - 120 [facility] [address] Work Phone: ALT With P-5'-P [Catalytic activity/Vol] 52 U/L 10 - 52 [facility] [address] Work Phone: Comment on above: Patients treated wit h Sulfasalazine may generate falsely decreased results for ALT. Anion gap [Moles/Vol] 17 mmol/L 10 - 20 [facility] [address] Work Phone: AST With P-5'-P [Catalytic activity/Vol] 34 U/L 9 - 39 [facility] [address] Work Phone: Bilirubin [Mass/Vol] 0.7 mg/dL 0.0 - 1.2 [facility] [address] Work Phone: [phone] Calcium [Mass/Vol] 9.5 mg/dL 8.6 - 10.6 [facility] [address] Work Phone: [phone] Chloride [Moles/Vol] 100 mmol/L 98 - 107 [facility] [address] Work Phone: [phone] CO2 [Moles/Vol] 26 mmol/L 21 - 32 [facility] [address] Work Phone: [phone] Creatinine (U) [Mass/Vol] 51.0 mg/dL See Below [facility] [address] Work Phone: [phone] Comment on above: Reference Range: 20. 0 - 370.0 Creatinine [Mass/Vol] 0.95 mg/dL See Below [facility] [address] Work Phone: Comment on above: Reference Range: 0.5 0 - 1.30 Glucose [Mass/Vol] 341 mg/dL above high threshold 74 - 99 [facility] [address] Work Phone: [phone] Iron [Mass/Vol] 63 ug/dL 35 - 150 [facility] [address] Work Phone: [phone] Iron binding capacity [Mass/Vol] 313 ug/dL 240 - 445 [facility] [address] Work Phone: Potassium [Moles/Vol] 4.3 mmol/L 3.5 - 5.3 [facility] [address] Work Phone: Protein [Mass/Vol] 7.1 g/dL 6.4 - 8.2 [facility] [address] Work Phone: [phone] Sodium [Moles/Vol] 139 mmol/L 136 - 145 [facility] [address] Work Phone: Urea nitrogen [Mass/Vol] 13 mg/dL 6 - 23 [facility] [address] Work Phone: Laboratory - Coagulationon 0 10-04-2021 INR Coag (PPP) [Relative time] 1.0 {INR} 0.9 - 1.1 [facility] [address] Work Phone: PT Coag (PPP) [Time] 11.8 s 9.8 - 13.[address] [facility] [facility] [address] Work Phone: Lipid Panelon 10-04-2021 Cholesterol [Mass/Vol] 134 mg/dL 0 - 199 [facility] [address] Work Phone: Comment on above: . AGE DESIRABLE BORD JOSTIN HIGH HIGH 0-19 Y 0 - 169 170 - 199 >/= 200 20-24 Y 0 - 189 190 - 224 >/= 225 >24 Y 0 - 199 200 - 239 >/= 240 All ranges are based on fasting samples. Specific therapeutic targets will vary based on patient-specific cardiac risk.. Pediatric guidelines reference:Pediatrics 2011, 128(S5). Adult guidelines reference: NCEP ATPIII Guidelines, KIRBY 2001, 258:2486-97. Venipuncture immediately after or during the administration of Metamizole may lead to falsely low results. Testing should be performed immediately prior to Metamizole dosing. Cholesterol in HDL [Mass/Vol] 30.9 mg/dL Abnormal [facility] [address] Work Phone: Comment on above: . AGE VERY LOW LOW N ORMAL HIGH 0-19 Y < 35 < 40 40-45 ---- 20- 24 Y ---- < 40 >45 ---- >24 Y ---- < 40 40-60 >60. Cholesterol in LDL [Mass/Vol] 25 mg/dL 0 - 99 [facility] [address] Work Phone: Comment on above: . NEAR BORD AGE ABIMAEL RABLE OPTIMAL HIGH HIGH VERY HIGH 0-19 Y 0 - 109 --- 110-129 >/= 130 ---- 20-24 Y 0 - 119 --- 120-159 >/= 160 ---- >24 Y 0 - 99 100-129 130-159 160-189 >/=190. Cholesterol non HDL [Mass/Vol] 103 mg/dL [facility] [address] Work Phone: Comment on above: AGE DESIRABLE BORDER LINE HIGH HIGH VERY HIGH 0-19 Y 0 - 119 120 - 144 >/= 145 >/= 160 20-24 Y 0 - 149 150 - 189 >/= 190 ---- >24 Y 30 MG/DL ABOVE LDL CHOLESTEROL GOAL. Cholesterol.total /Cholesterol in HDL [Mass ratio] 4.3 {ratio} [facility] Work Phone: Comment on above: REF VALUESDESIRABLE < 3.4HIGH RISK > 5.0 Triglyceride [Mass/Vol] 389 mg/dL above high threshold 0 - 149 [facility] Work Phone: Comment on above: . AGE DESIRABLE BORD JOSTIN HIGH HIGH VERY HIGH 0 D-90 D 19 - 174 ---- ---- ----91 D- 9 Y 0 - 74 75 - 99 >/= 100 ---- 10-19 Y 0 - 89 90 - 129 >/= 130 ---- 20-24 Y 0 - 114 115 - 149 >/= 150 ---- >24 Y 0 - 149 150 - 199 200- 499 >/= 500. Venipuncture immediately after or during the administration of Metamizole may lead to falsely low results. Testing should be performed immediately prior to Metamizole dosing. Lipid Panel 78 mg/dL above high threshold 0 - 40 [facility] [address] Work Phone: MAGNESIUMon 10-04-2021 Magnesium [Mass/Vol] 2.00 mg/dL Normal 1.60 - 2.40 [facility] Comment on above: Performed By: #### M Aracelis #### [facility] [address] [place] [address] Magnesium, Serumon Magnesium [Mass/Vol] 2.00 mg/dL See Below [facility] [address] Work Phone: Comment on above: Reference Range: 1.6 0 - 2.40 No Panel Informationon 10-04 20 % below low threshold 25 - 45 [facility] [address] Work Phone: >90 >90 [facility] [address] Work Phone: Comment on above: CALCULATIONS OF ARTIS MATED GFR ARE PERFORMED USING THE 2020 CKD-EPI STUDY REFIT EQUATION WITHOUT THE RACE VARIABLE FOR THE IDMS-TRACEABLE CREATININE METHODS.https://jasn.asnjournals.org/content//ASN.[email or web address] [id number] Office Visit (Peds Pulmonary Cystic Fibrosis)on 10-04-2021 Follow-up visit Diagnoses/Problems Cystic fibrosis (277.00) (E84.9) 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,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,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 fibrosis with pulmonary manifestations (277.02) (E84.0) Anxiety (300.00) (F41.9) Abnormal liver function test (790.6) (R79.89) Cirrhosis (571.5) (K74.60) 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) Orders Start: Mirtazapine 15 MG Oral Tablet; TAKE 1 TABLET AT BEDTIME Stop: Colistimethate Sodium (CBA) 150 MG Injection Solution Reconstituted Immunoglobulin E Level, Serum; Status:In Progress - Specimen/Data Collected; Done: 04Oct2021 Thyroxine, Serum (T4); Status:In Progress - Specimen/Data Collected; Done: 04Oct2021 TSH - Thyroid Stimulating Hormone, Serum; Status:In Progress - Specimen/Data Collected; Done: 04Oct2021 Vitamin A, Serum; Status:In Progress - Specimen/Data Collected; Done: 04Oct2021 Vitamin D 25-Hydroxy; Status:In Progress - Specimen/Data Collected; Done: 04Oct2021 Vitamin E, Serum; Status:In Progress - Specimen/Data Collected; Done: 04Oct2021 Patient Discussion/Summary Thank you for working with us during this difficult time. Your care is very important to us! It was very nice to see you today. We can offer you in-person and virtual appointments with your cystic fibrosis provider - don't be afraid to ask!! If you need to cancel or schedule an appointment, please call the restaurant front manager at the [facility] at between the hours of 8 AM and 5 PM, Saturday-Saturday. To reach our CF nurse, Georgina, please call . Georgina has a secure voice mail account if you want to leave a message. If you need to speak with an adult cystic fibrosis provider between the hours of 5 PM and 8 AM (overnight) or anytime on Saturday or Saturday, please call . When you call this number, you will be connected to an radio station operator with the [facility] answering service. You should tell the radio station operator that you're an adult with cystic fibrosis who needs to speak to the cystic fibrosis doctor on-call. The radio station operator will take your contact information. You should then expect a call back from the cystic fibrosis doctor on-call within a short period of time. Plan: 1. [facility] in [facility] for meds 2. Start Remeron at 15 mg by mouth before bed 3. Resume Trikafta 4. Appt with Dr. Kaiser and Dr. Briceño next time we see him 5. Refill on enzymes, Trikafta, albuterol puffer, symbicort, not using pulmozyme 6 Return in 2-3 months with me, Joe Briceño 7. If you don't like the Remeron, let us know 8. Get back to the gym! 9. Soooooo glad you're back Provider Impressions 1. CF pulmonary disease - without exacerbation - get started back on Trikafta - culture today - annual labs 2. CFRD - is on insulin - poorly controlled, hgba1c 10% 3. pancreatic insufficiency - enzymes 4. neuropathy - did not discuss 5. 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 anxiety - will start remeron 7. SVT - saw a commissary helper in [facility] - no more problems recently 8. insomnia - try remeron 9. Cirrhosis - follow up with Dr. Briceño Chief Complaint follow up visit for cystic fibrosis History of Present IllnessLast visit: 1. Refer to sleep specialist (either here or at [facility]) 2. Encouraged follow up with me and with Dr. Briceño and Kimberly within a few months 3. PHarmacist to discuss all of these supplements, testosterone, and Trikafta - look for potential interactions 4. Needs labs when back on Trikafta 5. Needs a PCP 6. Discussed tobacco cessation 7. Transplant education (focused on liver more than lung) in future, started today a little Nurse Assessment 10/04/21: 1. medications reconciled - needs refills on all med- does have Zenpep and insulin 2. Feeling well- would feel better with med 3. Moved back to [place] to care for his dad who has NHL - just completed chemo 4. working at at [employer] and 5. Have flu vaccine for this season 04/2021 and COVID vaccine in October 2020 6. Health Maintenance Your Annual Labs were labs were last done on: 03/2020 Annual Labs are next due on: 03/2021 Your last DEXA scan was on: Jul 2018 It is next due on: 2022 Your last chest x-ray was on: Jul 2018 Next routine CXR due on: Jul 2020 Last audiology assessment was on: not on file You had colonoscopy in 04/2020 Due again - ? will need to ask Margaret Briceño Worked in [place] for [employer] Moved home to care fo rhis Dad Lived in [facility] area -40 miles to Apartment was $3600/month, gas $5.70 Wage was way better - $72 per hour Was like being here but had more wriggle room Is working back here. Has insurance through them Is able to go back to [place] if he wants Will be working at [employer] if he goes wback Came back in March, didn't call us until now Off all meds except for insulin Recently ran out Last dose of (more content not included)... Normal [facility] Office Visit ( era)on 10-04-2021 Follow-up visit Progress Note Respiratory Note: Patient?s Airway Clearance: monarch Frequency: PRN Exercise: yes gym but it has been 2-3 months since he been back to the gym Oscillating Device: yes flutter PRN (he keeps his flutter in his tool box at work) Friend Cough: yes Primary: friend cough Secondary: exercise Aerosols: Name of medication, frequency, type of nebulizer used, Mask or Mouthpiece? Bronchodilators: yes albuterol HFA PRN Pulmozyme: no Hypertonic Saline: no Antibiotics: no ICS/Combinations: yes symbicort bid rinses and spits Home PFT Device: no but may be interested. We planned to discuss at his next clinic visit Oxygen: no CPAP, BIPAP, Assisted Breathing (use at home or in-patient): no Have you smoked cigarettes in the last year?: no Are you exposed to second hand smoke: no Does anyone in your household smoke cigarettes?: no Comments: -Bravo is here for a routine clinic visit. His pft 112% today! -Bravo recently moved back to [place]. He was living in [place]. -I discussed the option of a getting a home spirometer to monitor his pfts from home in between clinic visits or with changes in his symptoms. Bravo may be interested. We will plan to discuss again at his next visit. -Bravo is active at work, but it has been 2-3 months since he has been back to the gym. He is ready to get back to working out. Bravo was very active while he was living in [place]. Also he used to work out while wearing his [place] vest. Signatures Electronically signed by : Elo Mercedes, ; Oct 04 2021 7:49PM EST (Author) Normal [facility] PT/INRon 10-04-2021 PT Coag (PPP) [Time] 11.8 s Normal 9.8 - 13.4 [facility] Comment on above: Performed By: #### I GE #### [facility] [address] [place] [address] PT, INR 1.0 Normal 0.9 - 1.1 [facility] Comment on above: Performed By: #### I GE #### [facility] [address] [place] [address] Pharm D Noteon 10-04-2021 Pharm D Note Patient Discussion/S ummary GENERAL ASSESSMENT: -Bravo is re-establishing care with after moving back from [place] -Has not had Trikafta for 6 months -Has not taken Colisin for 1 year (does not have any at home) -Takes 8-10 units of Humalog with meals -Endorses previously taking testosterone and nandrolone (obtained online), but is not currently taking these and does not plan to resume in the near future (states he may be interested in taking them later in the future) -No new allergies -No new medical diagnoses COMPLIANCE / ADHERENCE: -Bravo endorses running out of Trikafta 03/2021 TOLERANCE: -No reported side effects EFFICACY: -Medication is helping disease state? Bravo endorses Trikafta made a significant difference in his health and he would like to restart it. Endorses feeling worse since running out of Trikafta 6 months ago. -Elevated LFTs in August 2021 -Child-Celaya Class A (no dose adjustments necessary at this time) PATIENT MANAGEMENT: -Patient has no questions at this time -Goals of therapy: Maintain lung function and improve quality of life -Quality of Life: ok. Bravo endorses regular anxiety, for which he currently takes buspirone 10 mg BID. He moved back from [place] to care for his father who is ill, which is a source of stress and anxiety. PHARMACY Specialty Medications: specialty Other Medications: [facility] How would you describe your satisfaction with Specialty Pharmacy? No issues Do you have any additional suggestions to improve Specialty Pharmacy services: no SUMMARY: Laboratory follow up needed? -Respiratory Culture -DEXA -Chest X-ray -Annual labs today, notable results: oA1c: 10.3 (high) oVit D: 16 (low) oT (high) 10/04/21 08/08/21 07/26/21 Note: BG 785 mg/dL AST (U/L)34 83 (H) 16 ALT (U/L)52 183 (H) 24 Alk Phos (U/L)205 (H) 401 (H) 394 (H) tBili (mg/dL)0.7 0.53 0.46 Albumin (g/dL)4.5 4.3 3.3 INR1.0 Any changes to the care plan? Yes -Plan to restart Trikafta (pending repeat labs) -Change buspirone to mirtazapine for anxiety + sleep Clinical intervention needed? -Recommend LFTS every 6 months once re-established on Trikafta with history of cirrhosis ADDITIONAL COMMENTS: -Not on azithromycin. Recent respiratory culture results unknown due to out of state care Specialty Pharmacy: Prescriber: Dr. 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,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,E08.9) Duodenal erosion (532.90) (K26.9) Encounter for immunization (V03.89) (Z23) Insomnia (780.52) (G47.00) MSSA (methicillin susceptible Staphylococcus aureus) infection (041.11) (A49.01) Mycobacterial, atypical (031.9) (A31.9) Never a smoker 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,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) (H93.8X9,T36.8X5A) Palpitations (785.1) (R00.2) Paroxysmal SVT (supraventricular tachycardia) (427.0) (I47.1) 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 Okay to to substitute sweetie vortex or opti chamberCystic fibrosis Oseltamivir Phosphate 75 MG Oral CapsuleTake 1 capsule twice daily for 5 daysCystic fibrosis Trikafta 100-50-75 AND 150 MG Oral Tablet Therapy PackTrikafta take 2 Tabs (elexacaftor 100mg/tezacaftor 50mg/ivacaftor 75mg) PO Q AM and 1 Tab (ivacaftor 150mg) PO Q Evening with fatty foodsCystic fibrosis Albuterol Sulfate (2.5 MG/3ML) 0.083% Inhalation Nebulization SolutionUSE 1 UNIT DOSE IN NEBULIZER EVERY 4 HOURS NEEDED.Cystic fibrosis with pulmonary manifestations Colistimethate Sodium (CBA) 150 MG Injection Solution ReconstitutedDilute each vial with 3 mL sterile water, withdraw 3 mL and add to nebulizer, inhale twice dailyCystic fibrosis with pulmonary manifestations Sterile Water for Injection Injection SolutionInstill 3 ml sterile water to reconstitute each vial of ColistinCystic fibrosis with pulmonary manifestations Zenpep [id number] UNIT Oral Capsule Delayed Release ParticlesTake 5-7 caps with meals and 3 caps with snacksCystic fibrosis, Exocrine pancreatic manifestation of cystic fibrosis Accu-Chek FastClix Lancet KITUSE DIRECTED.Diabetes (more content not included)... Normal Touchworks Radiologyon 10-04-2021 XR Chest 2 Views Normal [facility] -[employer] [address] [facility] Work Phone: SEDIMENTATION RATE, ERYTHROC YTEon 10-04-2021 SEDIMENTATION RATE, ERYTHROCYTE 14 mm/h Normal 0 - 15 [facility] Comment on above: Performed By: #### E SRWS #### [facility] [address] [place] [address] Sedimentation Rate, Erythroc yteon 10-04-2021 ESR (Bld) [Velocity] 14 mm/h 0 - 15 [facility] [address] Work Phone: Social Work Assesmenton - Social Work Assesment Assessment Food Insecurity: 1. Within the past 12 months, you worried that your food would run out before you got money to buy more: No 2. Within the past 12 months, the food you bought just didn't last and you didn't have money to get more: No Signatures Electronically signed by : ARUNA Gomez; Oct 17 2021 10:34AM EST (Author) Normal Dynamic [employer] Social Work Assesment Encounter Visit Type: This is an annual visit for the patient. Social History Raised By: both biological parents. Additional Information: currently living with his father who has cancer and is his primary cellophaner. How Long? 2. Patient's current employment: Full-time . Employment History:. 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 Total Household Income: Total Household Income $60,000-$69,999. Housing: Patient does have adequate housing. Does Patient Feel Safe in Home? yes. Primary Insurance: Private believes he is over income for [facility], however will consider [facility] if copays become too mcuh. Assessment ADLs: Fully Independent. Instrumental ADLs: Fully Independent. Level of Activity: Very Active. Knowledge of Health: Good. Overall Adherence: Poor. Adherence with Medications: poor. Understanding of Medication: good. Adherence with Appointments: fair. How does patient handle health problems? Bravo was living in [place] with no CF care for the past two years. he was taking enzymes, however no other medications or treatments. He currently has issues with his liver that he is avoidant of discussing as it seems to cause him distress. Cognition: No cognitive deficits reported or observed. Attitude toward Interviewer: cooperative and appropriate. Eye Contact: Patient maintained good eye contact throughout appointment. Appearance: The patient was neatly groomed, appropriately dressed and adequately nourished. Affect: appropriate. Thought Process: appropriate. The patient reports his/her mood as: overall good, slightly increased anxiety. Reported Mental Health Diagnosis: anxiety What are patient's psychosocial stressors? father has cancer, and pt is primary cellophaner for him. Mental Health Meds: remeron Prescribed by: Specialist Dr. Allan Past Medications: Buspar. Counseling: discussed therapy as an intervention, patient declines at this time Impression Impression: Met Bravo for the first time in clinic as he was re-establishing care after b[place] in [place] for two years. He moved back to care for his father who has cancer. He was agreeable to SW assessment. Very engaged throughout the appt, had good insight into mood and stressors. He reports some guilt for not being adherent to treatments, saying things like I know, I am the worst. His goals are to re-establish care and get back into a treatment routine. He reports increased anxiety from the move and his father's illness. Is not interested in counseling at this time, however this worker spent time educating on the benefits of therapy. Assisted the pt in reframing negative self talk in regards to adherence, discussed the teams expectations of him, as they are not that he is perfect. Created manageable steps to move forward to better adherence. Plan Plan: Patient to consider applying for BC (may be over income). Patient to consider mental health counseling if anxiety persists. SW to continue to follow. Signatures Electronically signed by : TRAMAINE Guerrero; Oct 06 2021 9:05AM EST (Author) Normal Touchworks TH CHEST 2 VIEW PA AND LATon 10-04-2021 TH CHEST 2 VIEW PA AND LAT Patient Name: BRAVO ALBRECHT STUDY: TH CHEST 2 VIEW PA AND LAT; 10/04/2021 1:06 pm INDICATION: CF E84.9: Cystic fibrosis. COMPARISON: 07/23/2018. ACCESSION NUMBER(S): [id number] ORDERING CLINICIAN: JALEESA ALLAN FINDINGS: CARDIOMEDIASTINAL SILHOUETTE: Cardiomediastinal silhouette is normal in size and configuration. LUNGS: There is upper lobe peribronchial thickening with right upper lobe bronchiectatic changes. There is no acute airspace disease when compared to a study of 05/23/2019. Slight interval improvement in peribronchial thickening when compared to prior studies. ABDOMEN: No remarkable upper abdominal findings. BONES: No acute osseous changes. IMPRESSION: 1. There is no acute airspace disease. Diffuse peribronchial thickening and upper lobe bronchiectatic changes consistent with history of cystic fibrosis. No acute airspace disease. Electronically signed by: Jordan REINOSO MD Normal [facility] THYROXINEon 10-04-2021 T4 [Mass/Vol] 6.8 ug/dL Normal 4.5 - 11.1 [facility] Comment on above: Performed By: #### T 4 #### [facility] [address] [place] [address] TSHon 10-04-2021 TSH Qn 3.47 m[IU]/L Normal 0.44 - 3.98 [facility] Comment on above: Result Comment: TSH testing is performed using different testing methodology at [facility] than at other [facility]. Direct result comparisons should only be made within the same method. Performed By: #### I GE #### [facility] [address] [place] [address] TSH - Thyroid Stimulating Ho rmone, Serumon 10-04-2021 TSH Qn 3.47 m[IU]/L See Below [facility] [address] Work Phone: Comment on above: Reference Range: 0.4 4 - 3.98 TSH testing is performed using different testing methodology at [facility] than at other [facility]. Direct result comparisons should only be made within the same method. Thyroxine, Serum (T4)on 09-07 T4 [Mass/Vol] 6.8 ug/dL 4.5 - 11.1 [facility] -[place] [address] Work Phone: URINALYSISon 10-04-2021 Appearance (U) CLEAR Normal CLEAR [facility] Comment on above: Performed By: #### U A #### [facility] [address] [place] [address] Bilirubin Ql (U) Negative Normal NEGATIVE [facility] [place] Comment on above: Performed By: #### U A #### [facility] [address] [place] [address] Color (U) YELLOW Normal STRAW,YELLOW [facility] Comment on above: Performed By: #### U A #### [facility] [address] [place] [address] Glucose Ql (U) >=500 (3+) Abnormal NEGATIVE [facility] Comment on above: Performed By: #### U A #### [facility] [address] [place] [address] Hemoglobin Ql (U) Negative Normal NEGATIVE [facility] Comment on above: Performed By: #### U A #### [facility] [address] [place] [address] Ketones Ql (U) Negative Normal NEGATIVE [facility] Comment on above: Performed By: #### U A #### [facility] [address] [place] [address] Leukocyte esterase Test strip Ql (U) Negative Normal NEGATIVE [facility] Comment on above: Performed By: #### U A #### [facility] [address] [place] [address] Nitrite Ql (U) Negative Normal NEGATIVE [facility] Comment on above: Performed By: #### U A #### [facility] [address] [place] [address] pH (U) 6.0 [pH] Normal 5.0 - 8.0 [facility] Comment on above: Performed By: #### U A #### [facility] [address] [place] [address] Protein Ql (U) Negative Normal NEGATIVE [facility] Comment on above: Performed By: #### U A #### [facility] [address] [place] [address] Specific gravity (U) [Rel density] 1.029 Normal 1.005 - 1.035 [facility] Comment on above: Performed By: #### U A #### [facility] [address] [place] [address] Urobilinogen (U) [Mass/Vol] mg/dL Normal 0.0 - 1.9 [facility] Comment on above: Performed By: #### U A #### [facility] [address] [place] [address] Urinalysison 10-04-2021 Color (U) YELLOW See Below [facility] [address] Work Phone: Comment on above: Reference Range: STR AW,YELLOW Glucose Ql (U) >=500 (3+) Abnormal NEGATIVE [facility] [address] Work Phone: Ketones Ql (U) Negative NEGATIVE [facility] [address] Work Phone: Leukocyte esterase Test strip Ql (U) Negative NEGATIVE [facility] [address] Work Phone: pH (U) 6.0 [pH] 5.0 - 8.0 [facility] [address] Work Phone: Protein (U) [Mass/Vol] Negative NEGATIVE [facility] [address] Work Phone: RBC (U) [#/Vol] Negative NEGATIVE [facility] [address] Work Phone: Specific gravity (U) [Rel density] 1.029 1 See Below [facility] [address] Work Phone: Comment on above: Reference Range: 1.0 05 - 1.035 Urinalysis Negative NEGATIVE [facility] [address] Work Phone: Urinalysis <2.0 0.0 - 1.9 [facility] [address] Work Phone: Urinalysis CLEAR CLEAR [facility] [address] Work Phone: VITAMIN D, 25-HYDROXYon 09-07 VITAMIN D, 25-HYDROXY 16 ng/mL Abnormal [facility] Comment on above: Result Comment: . DEFICIENCY: < 20 NG/ML INSUFFICIENCY: 20-29 NG/ML SUFFICIENCY: 30-100 NG/ML THIS ASSAY ACCURATELY QUANTIFIES THE SUM OF VITAMIN D3, 25-HYDROXY AND VIT D2,25-HYDROXY. Performed By: #### V TDOH #### [facility] [address] [place] [address] Vitamin A, Serumon 2 Retinol [Mass/Vol] 30.7 ug/dL 18.9-57.3 [facility] [address] Work Phone: Comment on above: Reference intervals for vitamin A determined from [facility] internalstudies. Individuals with vitamin A less than 20 ug/dL are consideredvitamin A deficient and those with serum concentrations less than10 ug/dL are considered severely deficient.This test was developed and its performance characteristicsdetermined by [facility]. It has not been cleared or approvedby the Food and Drug Administration. Vitamin D 25-Hydroxyon 10-04 25-hydroxyvitamin D3 [Mass/Vol] 16 ng/mL Abnormal [facility] [address] Work Phone: Comment on above: .DEFICIENCY: < 20 NG /MLINSUFFICIENCY: 20-29 NG/MLSUFFICIENCY: 30-100 NG/MLTHIS ASSAY ACCURATELY QUANTIFIES THE SUM OFVITAMIN D3, 25-HYDROXY AND VIT D2,25-HYDROXY. Vitamin E, Serumon 2 Alpha tocopherol [Mass/Vol] 5.8 mg/L below low threshold 5.9-19.4 [facility] [address] Work Phone: Gamma tocopherol [Mass/Vol] 0.9 mg/L 0.7-4.9 [facility] [address] Work Phone: Comment on above: Reference intervals for alpha and gamma-tocopherol determined fromSolon Health and Nutrition Examination Survey, 9133-6180.Individuals with alpha-tocopherol levels less than 5.0 mg/L areconsidered vitamin E deficient.Test(s) 119577-Otssoqm E(Alpha Tocopherol); 995907-Axkqkxs E(Gamma Tocopherol)was developed and its performance characteristics determinedby [employer]. It has not been cleared or approved by the Foodand Drug Administration. Xray Bone Density, Dexa 1 or More Siteson 10-04-2021 DXA Bone [Mass/Area] Bone density Normal -[employer] -[place] [address] Work Phone: CF S of C Ages 22+on 09-25- 022 SARS-CoV-2 (COVID-19) RNA CAROL+probe Ql (Unsp spec) COVID Pfizer 10/19/20; [facility] [address] Work Phone: XR Chest Views 09/2021 [facility] -[place] [address] Work Phone: CF S of C Ages 22+ Needs 22 [facility] [address] Work Phone: CF S of C Ages 22+ BMI >25 [facility] [address] Work Phone: CF S of C Ages 22+ HGS within 1 SD of average for age [facility] [address] Work Phone: [phone] CF S of C Ages 22+ Scandishake; Protein shakes [facility] ediatric[facility] -[place] [address] Work Phone: [phone] CF S of C Ages 22+ Low vegetable intake [facility] -[place] [address] Work Phone: [phone] CF S of C Ages 22+ Pt. hoping to gain muscle [facility] iatrics -[place] [address] Work Phone: [phone] CF S of C Ages 22+ Last seen 2019; F/U due [facility] -[place] [address] Work Phone: [phone] CF S of C Ages 22+ Repeat 24 [facility] [address] Work Phone: [phone] CF S of C Ages 22+ Repeat 23 [facility] [address] Work Phone: [phone] CF S of C Ages 22+ EN 3-22 [facility] [address] Work Phone: [phone] CF S of C Ages 22+ no [facility] [address] Work Phone: [phone] CF S of C Ages 22+ yes symbicort, albuterol inhaler [facility] [address] Work Phone: [phone] CF S of C Ages 22+ 3.25.22 [facility] [address] Work Phone: [phone] CF S of C Ages 22+ 95% September 2019 [facility] [address] Work Phone: CF S of C Ages 22+ [place] vest [facility] -[place] [address] Work Phone: [phone] CF S of C Ages 22+ Adequate [facility] -[place] [address] Work Phone: [phone] CF S of C Ages 22+ [id number] [facility] -[place] [address] Work Phone: CF S of C Ages 22+ Zenpep [facility] [address] Work Phone: CF S of C Ages 22+ CFRD [facility] -[place] [address] Work Phone: CF S of C Ages 22+ N/A [facility] -[place] [address] Work Phone: CF S of C Ages 22+ 09/2021 [facility] [address] Work Phone: CF S of C Ages 22+ needs added to list [facility] -[place] [address] Work Phone: CF S of C Ages 22+ 04/2021 [facility] [address] Work Phone: CF S of C Ages 22+ No ototoxic medication [facility] -[place] [address] Work Phone: Microalb.,Random Uron 2021 Creatinine [Mass/Vol] 54.1 mg/dL Normal 39.0-259.0 [facility] Comment on above: Performed By: #### C NEELAM CPBILC ####[address] [place], [place] [id number] Lab Director: Michael Mcintosh MD#### CPURMA ####[address] [place], [place] [id number] Lab Director: Tommy Hall MD Microalb/Creat Ratio 41 mcg/mg creat High <17 [facility] Comment on above: Performed By: #### C NEELAM CPBILC ####[address] [place], [place] [address] Lab Director: Michael Mcintosh MD#### CPURMA ####[facility] [address] [place], [place] [address])[phone] Director: Tommy Hall MD Microalbumin conc. 22 mg/L High <21 [facility] Comment on above: Performed By: #### C DP, CPBILC ####[address] [place] [id number])[phone] Director: Michael Mcintosh MD#### CPURMA ####[address] [place] [address] Lab Director: Tommy Hall MD CBC with Diffon 08-08-2021 Abs. Basophil 0.05 k/uL Normal 0.00-0.20 [facility] Comment on above: Performed By: #### C DP, CPBILC ####[address] [place] [address] Lab Director: Michael Mcintosh MD#### CPURMA ####[place], [place] [address])[phone] Director: Tommy Hall MD Abs.Imm.Granulocy te 0.08 k/uL Normal 0.00-0.30 [facility] Comment on above: Performed By: #### C DP, CPBILC ####[address] [place] [address])[phone] Director: Michael Mcintosh MD#### CPURMA ####[address] [address])[phone] Director: Tommy Hall MD Abs.Neutrophil (Seg) 6.52 k/uL Normal 1.50-8.10 [facility] Comment on above: Performed By: #### C DP, CPBILC ####[address] [place] [address]([facility])[phone] Director: Michael Mcintosh MD#### CPURMA ####[address] [place] [address] Lab Director: Tommy Hall MD Basophils/100 WBC (Bld) 1 % Normal 0-2 [facility] Comment on above: Performed By: #### C DP, CPBILC ####[address] [place], [place] [address] Lab Director: Michael Mcintosh MD#### CPURMA ####[address] [place] [address] Lab Director: Tommy Hall MD Eosinophils (Bld) [#/Vol] 0.12 10*3/uL Normal 0.00-0.44 [facility] Comment on above: Performed By: #### C DP, CPBILC ####[address] [place] [address]([facility])[phone] Director: Michael Mcintosh MD#### CPURMA ####[place], [place] [address])[phone] Director: Tommy Hall MD Eosinophils/100 WBC (Bld) 1 % Normal 1-4 [facility] Comment on above: Performed By: #### C DP, CPBILC ####[address] [place] [id number] Lab Director: Michael Mcintosh MD#### CPURMA ####[address] [address] Lab Director: Tommy Hall MD Erythrocyte distribution width (RBC) [Ratio] 13.8 % Normal 11.8-14.4 [facility] Comment on above: Performed By: #### C DP, CPBILC ####[address] [place] [address]([facility])[phone] Director: Michael Mcintosh MD#### CPURMA ####[address] [address] Lab Director: Tommy Hall MD Hematocrit (Bld) [Volume fraction] 44.9 % Normal 40.7-50.3 [facility] Comment on above: Performed By: #### C DP, CPBILC ####[address] [place] [address]([facility])[phone] Director: Michael Mcintosh MD#### CPURMA ####[address] [address] Lab Director: Tommy Hall MD Hemoglobin (Bld) [Mass/Vol] 13.9 g/dL Normal 13.0-17.0 [facility] Comment on above: Performed By: #### C DP, CPBILC ####[address] [place], [place] [address])[phone] Director: Michael Mcintosh MD#### CPURMA ####[place], [place] [address])[phone] Director: Tommy Hall MD Immature granulocytes/100 WBC (Bld) 1 % High 0 [facility] Comment on above: Performed By: #### C DP, CPBILC ####[address] [place] [address] Lab Director: Michael Mcintosh MD#### CPURMA ####[place] [address] Lab Director: Tommy Hall MD Lymphocytes (Bld) [#/Vol] 2.35 10*3/uL Normal 1.10-3.70 [facility] Comment on above: Performed By: #### C DP, CPBILC ####[address] [place] [address]([facility])[phone] Director: Michael Mcintosh MD#### CPURMA ####[place], [place] [address])[phone] Director: Tommy Hall MD Lymphocytes/100 WBC (Bld) 24 % Normal 24-43 [facility] Comment on above: Performed By: #### C DP, CPBILC ####[address] [place] [id number] Lab Director: Michael Mcintosh MD#### CPURMA ####[address] [address] Lab Director: Tommy Hall MD MCH (RBC) [Entitic mass] 30.5 pg Normal 25.2-33.5 [facility] Comment on above: Performed By: #### C DP CPBILC ####[address] [place] [address]([facility])[phone] Director: Michael Mcintosh MD#### CPURMA ####[place], [place] [address])[phone] Director: Tommy Hall MD MCHC (RBC) [Mass/Vol] 31.0 g/dL Normal 28.4-34.8 [facility] Comment on above: Performed By: #### C DP, CPBILC ####[address] [place] [id number] Lab Director: Michael Mcintosh MD#### CPURMA ####[place] [address] Lab Director: Tommy Hall MD MCV (RBC) [Entitic vol] 98.7 fL Normal 82.6-102.9 [facility] Comment on above: Performed By: #### C DP, CPBILC ####[address] [place] [id number]([facility])[phone] Director: Michael Mcintosh MD#### CPURMA ####[address] [address] Lab Director: Tommy Hall MD Monocytes (Bld) [#/Vol] 0.70 10*3/uL Normal 0.10-1.20 [facility] Comment on above: Performed By: #### C DP, CPBILC ####[address] [place], [place] [address])[phone] Director: Michael Mcintosh MD#### CPURMA ####[place] [address] [place], [place] [address])[phone] Director: Tommy Hall MD Monocytes/100 WBC (Bld) 7 % Normal 3-12 [facility] Comment on above: Performed By: #### C DP, CPBILC ####[address] [place], [place] [address])[phone] Director: Michael Mcintosh MD#### CPURMA ####[place], [place] [address])[phone] Director: Tommy Hall MD Neutrophil (Seg) 66 % High 36-65 [facility] Comment on above: Performed By: #### C DP, CPBILC ####[address] [place], [place] [address])[phone] Director: Michael Mcintosh MD#### CPURMA ####[address] [address])[phone] Director: Tommy Hall MD NRBC Automated 0.0 per 100 WBC Normal 0.0 [facility] Comment on above: Performed By: #### C DP, CPBILC ####[address] [place], [place] [address])[phone] Director: Michael Mcintosh MD#### CPURMA ####[address] [place], [place] [address])[phone] Director: Tommy Hall MD Platelet mean volume (Bld) [Entitic vol] 9.1 fL Normal 8.1-13.5 [facility] Comment on above: Performed By: #### C DP, CPBILC ####[address] [place], [place] [address])[phone] Director: Michael Mcintosh MD#### CPURMA ####[address] [place] [address] Lab Director: Tommy Hall MD Platelets (Bld) [#/Vol] 275 10*3/uL Normal 138-453 [facility] Comment on above: Performed By: #### C DP, CPBILC ####[address] [place], [place] [address])[phone] Director: Michael Mcintosh MD#### CPURMA ####[place] [address] Lab Director: Tommy Hall MD RBC (Bld) [#/Vol] 4.55 10*6/uL Normal 4.21-5.77 [facility] Comment on above: Performed By: #### C DP, CPBILC ####[address] [place] [address])[phone] Director: Michael Mcintosh MD#### CPURMA ####[address] [address] Lab Director: Tommy Hall MD WBC (Bld) [#/Vol] 9.8 10*3/uL Normal 3.5-11.3 [facility] Comment on above: Performed By: #### C DP, CPBILC ####[address] [place], [place] 1534783 Lab Director: Michael Mcintosh MD#### CPURMA ####[address] [place] [address] Lab Director: Tommy Hall MD Auto Diff Performed NOT REPORTED Normal [facility] Comment on above: Performed By: #### C DP, CPBILC ####[address] [place], [place] [id number])[phone] Director: Michael Mcintosh MD#### CPURMA ####[address] [place], [place] [phone])[phone] Director: Tommy Hall MD Platelet Comment NOT REPORTED Normal [facility] Comment on above: Performed By: #### C DP, CPBILC ####[address] [place] [address] Lab Director: Michael Mcintosh MD#### CPURMA ####[address] [place], [place] [phone] Director: Tommy Hall MD RBC morphology finding Nom (Bld) NOT REPORTED Normal [facility] Comment on above: Performed By: #### C DP, CPBILC ####[address] [place] [address] Lab Director: Michael Mcintosh MD#### CPURMA ####[address] [place], [place] [id number])[phone] Director: Tommy Hall MD WBC Morphology NOT REPORTED Normal [facility] Comment on above: Performed By: #### C DP, CPBILC ####[address] [place], [place] [id number])[phone] Director: Michael Mcintosh MD#### CPURMA ####[address] [place], [place] [phone])[phone] Director: Tommy Hall MD Comp Metab w/Bili Pron 08-08 (cont.) Normal [facility] Comment on above: Result Comment: Aver age GFR for 30-39 years old: 107 mL/min/1.73sq m Chronic Kidney Disease: <60 mL/min/1.73sq m Kidney failure: <15 mL/min/1.73sq m eGFR calculated using average adult body mass. Additional eGFR calculator available at: http://[email or web address]/multiple_crcl_2012.htm Performed By: #### C DP, CPBILC ####[address] [place], [place] 582[address]83 Lab Director: Michael Mcintosh MD#### CPURMA ####[address] [place] [address] Lab Director: Tommy Hall MD Albumin [Mass/Vol] 4.3 g/dL Normal 3.5-5.2 [facility] Comment on above: Performed By: #### C DP, CPBILC ####[address] [place], [place] 0625783 Lab Director: Michael Mcintosh MD#### CPURMA ####[address] [place] [address] Lab Director: Tommy Hall MD Albumin/Glob Ratio 1.3 Normal 1.0-2.5 [facility] Comment on above: Performed By: #### C DP, CPBILC ####[address] [place], [place] 4298283 Lab Director: Michael Mcintosh MD#### CPURMA ####[address] [place] [address] Lab Director: Tommy Hall MD Alkaline Phos 401 U/L High 40-129 [facility] Comment on above: Performed By: #### C DP, CPBILC ####[address] [place], [place] [phone] Director: Michael Mcintosh MD#### CPURMA ####[address] [address] [place] [address] Lab Director: Tommy Hall MD ALT [Catalytic activity/Vol] 183 U/L High 5-41 [facility] Comment on above: Performed By: #### C DP, CPBILC ####[address] [place], [place] 4679583 Lab Director: Michael Mcintosh MD#### CPURMA ####[address] [address] Lab Director: Tommy Hall MD Anion gap [Moles/Vol] 10 mmol/L Normal 9-17 [facility] Comment on above: Performed By: #### C NEELAM CPBILC ####[address] [place], [place] 4365583 Lab Director: Michael Mcintosh MD#### CPURMA ####[address] [address] Lab Director: Tommy Hall MD AST [Catalytic activity/Vol] 83 U/L High <40 [facility] Comment on above: Performed By: #### C NEELAM CPBILC ####[address] [place] [address] Lab Director: Michael Mcintosh MD#### CPURMA ####[address] [address] Lab Director: Tommy Hall MD Bilirubin [Mass/Vol] 0.53 mg/dL Normal 0.3-1.2 [facility] Comment on above: Performed By: #### C NEELAM CPBILC ####[address] [place], [place] 7449783 Lab Director: Michael Mcintosh MD#### CPURMA ####[place] [address] [place] [address] Lab Director: Tommy Hall MD Bilirubin, Indirect Can not be calculated Normal 0.00-1.00 [facility] Comment on above: Performed By: #### C DP, CPBILC ####[address] [place], [place] 5471783 Lab Director: Michael Mcintosh MD#### CPURMA ####[address] [address] [place] [address] Lab Director: Tommy Hall MD Bilirubin.indirec t [Mass/Vol] mg/dL Normal <0.31 [facility] Comment on above: Performed By: #### C DP, CPBILC ####[address] [place], [place] 4433783 Lab Director: Michael Mcintosh MD#### CPURMA ####[address] [address] Lab Director: oTmmy Hall MD Calcium [Mass/Vol] 10.3 mg/dL Normal 8.6-10.4 [facility] Comment on above: Performed By: #### C DP, CPBILC ####[address] [place], [place] 7062583 Lab Director: Michael Mcintosh MD#### CPURMA ####[address] [address] Lab Director: Tommy Hall MD Chloride [Moles/Vol] 103 mmol/L Normal 98-107 [facility] Comment on above: Performed By: #### C DP, CPBILC ####[address] [place] [address] Lab Director: Michael Mcintosh MD#### CPURMA ####[address] [place], [place] [phone] Director: Tommy Hall MD CO2 [Moles/Vol] 28 mmol/L Normal 20-31 [facility] Comment on above: Performed By: #### C DP, CPBILC ####[address] , [place] 3309583 Lab Director: Michael Mcintosh MD#### CPURMA ####[address] [address] [place] [address] Lab Director: Tommy Hall MD Creatinine [Mass/Vol] 0.78 mg/dL Normal 0.70-1.20 [facility] Comment on above: Performed By: #### C DP, CPBILC ####[address] , [place] 1990283 Lab Director: Michael Mcintosh MD#### CPURMA ####[address] [address] [place], [place] 4967508 Lab Director: Tommy Hall MD GFR, Amer >60 Normal >60 [facility] Comment on above: Performed By: #### C DP, CPBILC ####[address] , [place] 5795983 Lab Director: Michael Mcintosh MD#### CPURMA ####[place] [address] [place] [address] Lab Director: Tommy Hall MD GFR,non Amer >60 Normal >60 [facility] Comment on above: Performed By: #### C DP, CPBILC ####[address] [place] [address] Lab Director: Michael Mcintosh MD#### CPURMA ####[address] [address] [place] [address] Lab Director: Tommy Hall MD Glucose [Mass/Vol] 89 mg/dL Normal 70-99 [facility] Comment on above: Performed By: #### C DP, CPBILC ####[address] [place], [place] 4092083 Lab Director: Michael Mcintosh MD#### CPURMA ####[address] [address] [place], [place] 4443208 Lab Director: Tommy Hall MD Potassium [Moles/Vol] 4.5 mmol/L Normal 3.7-5.3 [facility] Comment on above: Performed By: #### C DP, CPBILC ####[address] [place], [place] 5281983 Lab Director: Michael Mcintosh MD#### CPURMA ####[address] [address] [place], [place] 1891108 Lab Director: Tommy Hall MD Protein [Mass/Vol] 7.5 g/dL Normal 6.4-8.3 [facility] Comment on above: Performed By: #### C DP, CPBILC ####[address] [place], [place] 5135283 Lab Director: Michael Mcintosh MD#### CPURMA ####[address] [place] [address] Lab Director: Tommy Hall MD Sodium [Moles/Vol] 141 mmol/L Normal 135-144 [facility] Comment on above: Performed By: #### C DP, CPBILC ####[address] [place], [place] 8918283 Lab Director: Michael Mcintosh MD#### CPURMA ####[facility] [place] [address] Lab Director: Tommy Hall MD Staging: Normal [facility] Comment on above: Result Comment: Stag e 1: Some kidney damage normal GFR Stage 2: Mild kidney damage GFR 60-89 Stage 3: Moderate kidney damage GFR 30-59 Stage 4: Severe kidney damage GFR 15-29 Stage 5: Severe kidney damage GFR <15 ESRD - chronic treatment by dialysis or transplant Performed By: #### C DP, CPBILC ####[address] [place] , [place] 9768483 Lab Director: Michael Mcintosh MD#### CPURMA ####[facility] [address] [place], [place] 9474908 Lab Director: Tommy Hall MD Urea nitrogen [Mass/Vol] 13 mg/dL Normal 12-25 [facility] Comment on above: Performed By: #### C DP, CPBILC ####[address] [place], [place] 2678683 lab Director: Michael Mcintosh MD#### CPURMA ####[facility] [address] [place], [place] 2944708 lab Director: Tommy Hall MD Cult,Respiratoryon 2 Cult,Respiratory Specimen Description .EXPECTORATED SPUTUM Special Requests NOT REPORTED Direct Exam CALLED TO FAX TO OFFICE DUE TO OFFICE BEING CLOSED ON 07/27/21 AT 1800.[facility] >10 Epithelial cells/LPF. Specimen is contaminated with oral mariza and is unacceptable for culture. Please submit another specimen. Culture NOT REPORTED Report Status FINAL 07/27/2021 Normal [facility] Comment on above: Performed By: #### R ESPC ####[address] , [place] 5774083 Lab Director: Michael Mcintosh MD Lipid Profileon 07-27-2021 Cholesterol [Mass/Vol] 120 mg/dL Normal <200 [facility] Comment on above: Result Comment: Cholesterol Guidelines: <200 Desirable 200-240 Borderline >240 Undesirable Performed By: #### L IPR ####[facility] [address] [place] [address] Lab Director: Tommy Hall MD Cholesterol in HDL [Mass/Vol] 33 mg/dL Low >40 [facility] Comment on above: Result Comment: HDL Guidelines: <40 Undesirable 40-59 Borderline >59 Desirable Performed By: #### L IPR ####[address] [address] [place] [address] Lab Director: Tommy Hall MD Cholesterol in LDL [Mass/Vol] 60 mg/dL Normal 0-130 [facility] Comment on above: Result Comment: LDL Guidelines: <100 Desirable 100-129 Near to/above Desirable 130-159 Borderline >159 Undesirable Direct (measured) LDL and calculated LDL are not interchangeable tests. Performed By: #### L IPR ####[address] [address] Lab Director: Tommy Hall MD Cholesterol.total /Cholesterol in HDL [Mass ratio] 3.6 {ratio} Normal <5 [facility] Comment on above: Performed By: #### L IPR ####[address] [address] lab Director: Tommy Hall MD Triglyceride [Mass/Vol] 135 mg/dL Normal <150 [facility] Comment on above: Result Comment: Triglyceride Guidelines: <150 Desirable 150-199 Borderline 200-499 High >499 Very high Based on AHA Guidelines for fasting triglyceride, April 2012. Performed By: #### L IPR ####[address] [address] lab Director: Tommy Hall MD Specimen Rejectionon 022 Reason for rejection Unable to perform testing: Unsuitable sputum specimen. Normal [facility] Comment on above: Performed By: #### R EJEC ####[facility] [place] [address] lab Director: Michael Mcintosh MD Source of sample SPUTUM Normal [facility] Comment on above: Performed By: #### R EJEC ####[facility] [place] [address] lab Director: Michael Mcintosh MD Test ordered [id number] [facility] Comment on above: Performed By: #### R EJEC ####[facility] [place], [facility]83 Lab Director: Michael Mcintosh MD ----- NOT REPORTED Normal [facility] Comment on above: Performed By: #### R EJEC ####[address] [place] [address] Lab Director: Michael Mcintosh MD CBC with Diffon 07-26-2021 Abs. Basophil 0.23 k/uL High 0.0-0.2 [facility] Comment on above: Performed By: #### C PBILC, CDP #### [address] [place] [address] Roofer Helper: Michael Mcintosh MD #### GLYHGB #### [address] [address] Roofer Helper: Tommy Hall MD Abs.Imm.Granulocy te 0.00 k/uL Normal 0.00-0.30 [facility] Comment on above: Performed By: #### C PBILC, CDP #### [address] [place] [address] Roofer Helper: Michael Mcintosh MD #### GLYHGB #### [address] [id number] Roofer Helper: Tommy Hall MD Abs.Neutrophil (Seg) 20.70 k/uL High 1.50-8.10 [facility] Comment on above: Performed By: #### C PBILC, CDP #### [facility] [address] [place] [address] [address] [place] 8435283 Roofer Helper: Michael Mcintosh MD #### GLYHGB #### [address] [address] Roofer Helper: Tommy Hall MD Basophils/100 WBC (Bld) 1 % Normal 0-2 [facility] Comment on above: Performed By: #### C PBILC, CDP #### [facility] [address] [place] [address] [place], [place] 7648283 Roofer Helper: Michael Mcintosh MD #### GLYHGB #### [address] [address] Roofer Helper: Tommy Hall MD Eosinophils (Bld) [#/Vol] 0.00 10*3/uL Normal 0.00-0.44 [facility] Comment on above: Performed By: #### C PBILC, CDP #### [facility] [address] [place], [place] 2886383 Roofer Helper: Michael Mcintosh MD #### GLYHGB #### [address] [address] Roofer Helper: Tommy Hall MD Eosinophils/100 WBC (Bld) 0 % Low 1-4 [facility] Comment on above: Performed By: #### C PBILC, CDP #### [facility] [address] [place] [address] Dr[address] [place], [place] 5396283 Roofer Helper: Michael Mcintosh MD #### GLYHGB #### [address] [address] Roofer Helper: Tommy Hall MD Immature granulocytes/100 WBC (Bld) 0 % Normal 0 [facility] Comment on above: Performed By: #### C PBILC, CDP #### [facility] [address] [place] [address] Dr[address] [place], [place] 5996383 Roofer Helper: Michael Mcintosh MD #### GLYHGB #### [address] [address] Roofer Helper: Tommy Hall MD Lymphocytes (Bld) [#/Vol] 1.38 10*3/uL Normal 1.10-3.70 [facility] Comment on above: Performed By: #### C PBILC, CDP #### [facility] [address] [place], [place] 2207183 Roofer Helper: Michael Mcintosh MD #### GLYHGB #### [facility] [address] [place] [address] Roofer Helper: Tommy Hall MD Lymphocytes/100 WBC (Bld) 6 % Low 24-43 [facility] Comment on above: Performed By: #### C PBILC, CDP #### [facility] [address] [place], [place] 0398083 Roofer Helper: Michael Mcintosh MD #### GLYHGB #### [address] [address] Roofer Helper: Tommy Hall MD Monocytes (Bld) [#/Vol] 0.69 10*3/uL Normal 0.10-1.20 [facility] Comment on above: Performed By: #### C PBILC, CDP #### [facility] [address] [place], [place] 1604083 Roofer Helper: Michael Mcintosh MD #### GLYHGB #### [place] [address] [place] [address] Roofer Helper: Tommy Hall MD Monocytes/100 WBC (Bld) 3 % Normal 3-12 [facility] Comment on above: Performed By: #### C PBILC, CDP #### [facility] [address] [place] [address] Roofer Helper: Michael Mcintosh MD #### GLYHGB #### [address] [address] Roofer Helper: Tommy Hall MD Morphology Christian (Bld) [Interp] Normal Normal [facility] Comment on above: Performed By: #### C PBILC, CDP #### [place] [address] [place], [place] 7179483 Roofer Helper: Michael Mcintosh MD #### GLYHGB #### [place] [place], [place] 8656608 Roofer Helper: Tommy Hall MD Neutrophil (Seg) 90 % High 36-65 [facility] Comment on above: Performed By: #### C PBILC, CDP #### [facility] [address] [place], [place] 64[address]83 Roofer Helper: Michael Mcintosh MD #### GLYHGB #### [address] [phone] Roofer Helper: Tommy Hall MD Erythrocyte distribution width (RBC) [Ratio] 11.9 % Normal 11.8-14.4 [facility] Comment on above: Performed By: #### C PBILC, CDP #### [address] [place], [place] 1313783 Roofer Helper: Michael Mcintosh MD #### GLYHGB #### [address] [phone] Roofer Helper: Tommy Hall MD Hematocrit (Bld) [Volume fraction] 42.4 % Normal 40.7-50.3 [facility] Comment on above: Performed By: #### C PBILC, CDP #### [address] [place], [place] 9476983 Roofer Helper: Michael Mcintosh MD #### GLYHGB #### [address] [phone] Roofer Helper: Tommy Hall MD Hemoglobin (Bld) [Mass/Vol] 14.0 g/dL Normal 13.0-17.0 [facility] Comment on above: Performed By: #### C PBILLuciano, CDP #### [facility] [address] [place] [address] [place] [address] Roofer Helper: Michael Mcintosh MD #### GLYHGB #### [place] [address] [place], [place] 4920108 Roofer Helper: Tommy Hall MD MCH (RBC) [Entitic mass] 29.9 pg Normal 25.2-33.5 [facility] Comment on above: Performed By: #### C PBILC, CDP #### [address] [place] [address] Roofer Helper: Michael Mcintosh MD #### GLYHGB #### [address] [phone] Roofer Helper: Tommy Hall MD MCHC (RBC) [Mass/Vol] 33.0 g/dL Normal 28.4-34.8 [facility] Comment on above: Performed By: #### C JEFFERY, CDP #### [address] [place] [address] Roofer Helper: Michael Mcintosh MD #### GLYHGB #### [address] [id number] Roofer Helper: Tommy Hall MD MCV (RBC) [Entitic vol] 90.4 fL Normal 82.6-102.9 [facility] Comment on above: Performed By: #### C JEFFERY, CDP #### [address] [place] [address] Roofer Helper: Michael Mcintosh MD #### GLYHGB #### [place] [place], [place] 325[address]8 Roofer Helper: Tommy Hall MD NRBC Automated 0.0 per 100 WBC Normal 0.0 [facility] Comment on above: Performed By: #### C JEFFERY, CDP #### [address] [place] [address] Roofer Helper: Michael Mcintosh MD #### GLYHGB #### [place] [place], [place] 6679908 Roofer Helper: Tommy Hall MD Platelet mean volume (Bld) [Entitic vol] 9.7 fL Normal 8.1-13.5 [facility] Comment on above: Performed By: #### C PBILC, CDP #### [facility] [address] [place] [address] [place] [phone] Roofer Helper: Michael Mcintosh MD #### GLYHGB #### [place] [phone] Roofer Helper: Tommy Hall MD Platelets (Bld) [#/Vol] 397 10*3/uL Normal 138-453 [facility] Comment on above: Performed By: #### C PBILC, CDP #### [address] [place] [address] Roofer Helper: Michael Mcintosh MD #### GLYHGB #### [place] [phone] Roofer Helper: Tommy Hall MD RBC (Bld) [#/Vol] 4.69 10*6/uL Normal 4.21-5.77 [facility] Comment on above: Performed By: #### C PBILC, CDP #### [address] [place] [address] Roofer Helper: Michael Mcintosh MD #### GLYHGB #### [place] [place], [place] 5811208 Roofer Helper: Tommy Hall MD WBC (Bld) [#/Vol] 23.0 10*3/uL High 3.5-11.3 [facility] Comment on above: Performed By: #### C PBILC, CDP #### [facility] [address] [place] [address] Roofer Helper: Michael Mcintosh MD #### GLYHGB #### [facility] [address] [place] [address] Roofer Helper: Tommy Hall MD Auto Diff Performed NOT REPORTED Normal [facility] Comment on above: Performed By: #### C PBILC, CDP #### [facility] [address] [place] [address] Roofer Helper: Michael Mcintosh MD #### GLYHGB #### [address] [address] Roofer Helper: Tommy Hall MD Platelet Comment NOT REPORTED Normal [facility] Comment on above: Performed By: #### C PBILC, CDP #### [address] [place] [address] Roofer Helper: Michael Mcintosh MD #### GLYHGB #### [address] [address] Roofer Helper: Tommy Hall MD RBC morphology finding Nom (Bld) NOT REPORTED Normal [facility] Comment on above: Performed By: #### C PBILC, CDP #### [address] [place] [address] Roofer Helper: Michael Mcintosh MD #### GLYHGB #### [facility] [address] [place] [address] Roofer Helper: Tommy Hall MD WBC Morphology NOT REPORTED Normal [facility] Comment on above: Performed By: #### C PBILC, CDP #### [place] [address] [place] [address] Roofer Helper: Michael Mcintosh MD #### GLYHGB #### [address] [address] Roofer Helper: Tommy Hall MD Comp Metab w/Bili Pron 07-26 Glucose [Mass/Vol] 785 mg/dL Critically high 70-99 [facility] Comment on above: Performed By: #### C JEFFERY, CDP #### [facility] [address] [place] [address] [address] [place], [place] 4103683 Roofer Helper: Michael Mcintosh MD #### GLYHGB #### [address] [place] [place] [address] Roofer Helper: Tommy Hall MD (cont.) [facility] Comment on above: Result Comment: Aver age GFR for 30-39 years old: 107 mL/min/1.73sq m Chronic Kidney Disease: <60 mL/min/1.73sq m Kidney failure: <15 mL/min/1.73sq m eGFR calculated using average adult body mass. Additional eGFR calculator available at: http://www.[employer]/multiple_crcl_2012.htm Performed By: #### C JEFFERY CDP #### [facility] [address] [place] [address] [address] [phone] Roofer Helper: Michael Mcintosh MD #### GLYHGB #### [address] [place] [place] [address] Roofer Helper: Tommy Hall MD Albumin [Mass/Vol] 3.3 g/dL Low 3.5-5.2 [facility] Comment on above: Performed By: #### C JEFFERY CDP #### [facility] [address] [place] [address] [place], [place] [id number] Roofer Helper: Michael Mcintosh MD #### GLYHGB #### [place] [address] [place] [address] Roofer Helper: Tommy Hall MD Albumin/Glob Ratio 0.8 Low 1.0-2.5 [facility] Comment on above: Performed By: #### C PBILC, CDP #### [facility] [address] [place] [place], [place] 0974983 Roofer Helper: Michael Mcintosh MD #### GLYHGB #### [facility] [facility] [address] [place] [address] Roofer Helper: Tommy Hall MD Alkaline Phos 394 U/L High 40-129 [facility] Comment on above: Performed By: #### C PBILC, CDP #### [facility] [address] [place], [place] [id number] Roofer Helper: Michael Mcintosh MD #### GLYHGB #### [id number] [place] [address] Roofer Helper: Tommy Hall MD ALT [Catalytic activity/Vol] 24 U/L Normal 5-41 [facility] Comment on above: Performed By: #### C PBILC, CDP #### [facility] [address] [place], [place] [id number] Roofer Helper: Michael Mcintosh MD #### GLYHGB #### [facility] [address] [place] [address] Roofer Helper: Tommy Hall MD Anion gap [Moles/Vol] 11 mmol/L Normal 9-17 [facility] Comment on above: Performed By: #### C PBILC, CDP #### [facility] [address] [place], [place] [id number] Roofer Helper: Michael Mcintosh MD #### GLYHGB #### [id number] [place] [address] Roofer Helper: Tommy Hall MD AST [Catalytic activity/Vol] 16 U/L Normal <40 [facility] Comment on above: Performed By: #### C PBILLuciano, CDP #### [facility] [address] [place] [id number] Roofer Helper: Michael Mcintosh MD #### GLYHGB #### [id number] [place], [place] [id number] Roofer Helper: Tommy Hall MD Bilirubin [Mass/Vol] 0.46 mg/dL Normal 0.3-1.2 [facility] Comment on above: Performed By: #### C PBILC, CDP #### [facility] [address] [place] [address] [place] [place], [place] [phone] Roofer Helper: Michael Mcintosh MD #### GLYHGB #### [address] [id number] Roofer Helper: Tommy Hall MD Bilirubin, Indirect Can not be calculated Normal 0.00-1.00 [facility] Comment on above: Performed By: #### C PBILC, CDP #### [facility] [address] [place] [address] [place], [place] [id number] Roofer Helper: Michael Mcintosh MD #### GLYHGB #### [address] [id number] Roofer Helper: Tommy Hall MD Bilirubin.indirec t [Mass/Vol] mg/dL Normal <0.31 [facility] Comment on above: Performed By: #### C PBILC, CDP #### [facility] [address] [place] [address] [place], [place] [id number] Roofer Helper: Michael Mcintosh MD #### GLYHGB #### [id number] [place], [place] [id number] Roofer Helper: Tommy Hall MD Calcium [Mass/Vol] 9.4 mg/dL Normal 8.6-10.4 [facility] Comment on above: Performed By: #### C PBILC, CDP #### [address] [place] [address] Roofer Helper: Michael Mcintosh MD #### GLYHGB #### [id number] [place], [place] [phone] Roofer Helper: Tommy Hall MD Chloride [Moles/Vol] 86 mmol/L Low 98-107 [facility] Comment on above: Performed By: #### C PBILC, CDP #### [facility] [address] [place], [place] 610[address]83 Roofer Helper: Michael Mcintosh MD #### GLYHGB #### [address] [id number] Roofer Helper: Tommy Hall MD CO2 [Moles/Vol] 27 mmol/L Normal 20-31 [facility] Comment on above: Performed By: #### C PBILC, CDP #### [address] [place], [place] [id number] Roofer Helper: Michael Mcintosh MD #### GLYHGB #### [address] [id number] Roofer Helper: Tommy Hall MD Creatinine [Mass/Vol] 1.10 mg/dL Normal 0.70-1.20 [facility] Comment on above: Performed By: #### C PBILC, CDP #### [facility] [address] [place] [address] [address] [place], [place] [phone] Roofer Helper: Michael Mcintosh MD #### GLYHGB #### [address] [address] Roofer Helper: Tommy Hall MD GFR, Amer >60 Normal >60 [facility] Comment on above: Performed By: #### C PBILC, CDP #### [facility] [address] [place] [address] [address], [place] [phone] Roofer Helper: Michael Mcintosh MD #### GLYHGB #### [facility] [address] [place] [address] Roofer Helper: Tommy Hall MD GFR,non Amer >60 Normal >60 [facility] Comment on above: Performed By: #### C PBILC, CDP #### [facility] [address] [place], [place] [id number] Roofer Helper: Michael Mcintosh MD #### GLYHGB #### [facility] [address] [place] [address] Roofer Helper: Tommy Hall MD Potassium [Moles/Vol] 5.4 mmol/L High 3.7-5.3 [facility] Comment on above: Performed By: #### C PBILC, CDP #### [facility] [address] [place], [place] 866[address]83 Roofer Helper: Michael Mcintosh MD #### GLYHGB #### [address] [address] Roofer Helper: Tommy Hall MD Protein [Mass/Vol] 7.4 g/dL Normal 6.4-8.3 [facility] Comment on above: Performed By: #### C PBILC, CDP #### [facility] [address] [place], [place] [phone] Roofer Helper: Michael Mcintosh MD #### GLYHGB #### [facility] [address] [place] [address] Roofer Helper: Tommy Hall MD Sodium [Moles/Vol] 124 mmol/L Low 135-144 [facility] Comment on above: Performed By: #### C PBILC, CDP #### [facility] [address] [place], [place] 5858983 Roofer Helper: Michael Mcintosh MD #### GLYHGB #### [facility] [address] [place], [place] [id number] Roofer Helper: Tommy Hall MD Staging: Normal [facility] Comment on above: Result Comment: Stag e 1: Some kidney damage normal GFR Stage 2: Mild kidney damage GFR 60-89 Stage 3: Moderate kidney damage GFR 30-59 Stage 4: Severe kidney damage GFR 15-29 Stage 5: Severe kidney damage GFR <15 ESRD - chronic treatment by dialysis or transplant Performed By: #### C PBILC, CDP #### [facility] [address] [place] [address] Dr[address] [place], [place] 6493083 Roofer Helper: Michael Mcintosh MD #### GLYHGB #### [id number] [place], [place] [phone] Roofer Helper: Tommy Hall MD Urea nitrogen [Mass/Vol] 23 mg/dL High 6-20 [facility] Comment on above: Performed By: #### C PBILC, CDP #### [facility] [address] [place] [address] [place], [place] [phone] Roofer Helper: Michael Mcintosh MD #### GLYHGB #### [facility] [address] [place], [place] [phone] Roofer Helper: Tommy Hall MD Hemoglobin A1Con 07-26-2021 Glucose [Mass/Vol] 283 mg/dL [facility] Comment on above: Result Comment: The ADA and AACC recommend providing the estimated average glucose result to permit better patient understanding of their HBA1c result. Performed By: #### C PBILC, CDP #### [facility] [address] [place] [address] [address] [place], [place] 7842983 Roofer Helper: Michael Mcintosh MD #### GLYHGB #### [facility] [address] [place], [place] [id number] Roofer Helper: Tommy Hall MD HbA1c (Bld) [Mass fraction] 11.5 % High 4.0-6.0 [facility] Comment on above: Performed By: #### C PBILC, CDP #### [facility] [address] [place] [address] Roofer Helper: Michael Mcintosh MD #### GLYHGB #### [facility] [address] [place], [place] [phone] Roofer Helper: Tommy Hall MD Lipid Profileon 07-26-2021 Cholesterol,VLDL NOT REPORTED Normal 08-06 [facility] Comment on above: Performed By: #### L IPR ####[facility] [place], [place] [id number] Lab Director: Tommy Hall MD COVID-19, Rapidon 07-17-2021 SARS-CoV-2 (COVID-19) RNA CAROL+probe Ql (Unsp spec) Not detected Not Detected [facility] Comment on above: Rapid NAAT: The specimen is NEGATIVE for SARS-CoV-2, the novel coronavirus associated with COVID-19. The ID NOW COVID-19 assay is designed to detect the virus that causes COVID-19 in patients with signs and symptoms of infection who are suspected of COVID-19. An individual without symptoms of COVID-19 and who is not shedding SARS-CoV-2 virus would expect to have a negative (not detected) result in this assay. Negative results should be treated as presumptive and, if inconsistent with clinical signs and symptoms or necessary for patient management, should be tested with an alternative molecular assay. Negative results do not preclude SARS-CoV-2 infection and should not be used as the sole basis for patient management decisions. Fact sheet for Healthcare Providers: https://www.fda.gov/media/967980/download Fact sheet for Patients: https://www.fda.gov/media/905963/download Methodology: Isothermal Nucleic Acid Amplification Specimen Description .NASOPHARYNGEAL SWAB [facility] [id number] 07-17-2021 SARS-CoV-2 (COVID-19) RNA CAROL+probe Ql (Unsp spec) Not detected Normal NOTDET [facility] Comment on above: Result Comment: Rapid NAAT: The specimen is NEGATIVE for SARS-CoV-2, the novel coronavirus associated with COVID-19. The ID NOW COVID-19 assay is designed to detect the virus that causes COVID-19 in patients with signs and symptoms of infection who are suspected of COVID-19. An individual without symptoms of COVID-19 and who is not shedding SARS-CoV-2 virus would expect to have a negative (not detected) result in this assay. Negative results should be treated as presumptive and, if inconsistent with clinical signs and symptoms or necessary for patient management, should be tested with an alternative molecular assay. Negative results do not preclude SARS-CoV-2 infection and should not be used as the sole basis for patient management decisions. Fact sheet for Healthcare Providers: https://www.fda.gov/media/502179/download Fact sheet for Patients: https://www.fda.gov/media/492281/download Methodology: Isothermal Nucleic Acid Amplification Performed By: #### C OVRB #### [facility] [address] [place] [address] Roofer Helper: Michael Mcintosh MD XR CHEST 1 VIEWon 07-17-2021 XR CHEST 1 VIEW EXAMINATION: ONE XRAY VIEW OF THE CHEST 07/17/2021 4:39 pm COMPARISON: 06/25/2021 HISTORY: ORDERING SYSTEM PROVIDED HISTORY: cough TECHNOLOGIST PROVIDED HISTORY: cough FINDINGS: The lungs are without acute focal process. There is no effusion or pneumothorax. The cardiomediastinal silhouette is without acute process. The osseous structures are without acute process. IMPRESSION: No acute process. Interpreted by: Skip Coronel MD Signed by: Skip Coronel MD 07/17/21 Final result Normal [facility] No acute process. [facility] EXAMINATION: ONE XRAY VIEW OF THE CHEST 07/17/2021 4:39 pm COMPARISON: 06/25/2021 HISTORY: ORDERING SYSTEM PROVIDED HISTORY: cough TECHNOLOGIST PROVIDED HISTORY: cough FINDINGS: The lungs are without acute focal process. There is no effusion or pneumothorax. The cardiomediastinal silhouette is without acute process. The osseous structures are without acute process. [facility] Skip Coronel MD - 07/17/2021 EXAMINATION: ONE XRAY VIEW OF THE CHEST 07/17/2021 4:39 pm COMPARISON: 06/25/2021 HISTORY: ORDERING SYSTEM PROVIDED HISTORY: cough TECHNOLOGIST PROVIDED HISTORY: cough FINDINGS: The lungs are without acute focal process. There is no effusion or pneumothorax. The cardiomediastinal silhouette is without acute process. The osseous structures are without acute process. IMPRESSION: No acute process. [facility] Work Phone: Radiology Study observation (narrative) [facility] Work Phone: XR CHEST 1 VIEWOrdered By: Grace Coronel on 07-17-2021 [facility] Work Phone: COVID-19, Rapidon 06-26-2021 SARS-CoV-2 (COVID-19) RNA CAROL+probe Ql (Unsp spec) Not detected Not Detected [facility] Comment on above: Rapid NAAT: The specimen is NEGATIVE for SARS-CoV-2, the novel coronavirus associated with COVID-19. The ID NOW COVID-19 assay is designed to detect the virus that causes COVID-19 in patients with signs and symptoms of infection who are suspected of COVID-19. An individual without symptoms of COVID-19 and who is not shedding SARS-CoV-2 virus would expect to have a negative (not detected) result in this assay. Negative results should be treated as presumptive and, if inconsistent with clinical signs and symptoms or necessary for patient management, should be tested with an alternative molecular assay. Negative results do not preclude SARS-CoV-2 infection and should not be used as the sole basis for patient management decisions. Fact sheet for Healthcare Providers: https://www.fda.gov/media/781699/download Fact sheet for Patients: https://www.fda.gov/media/765425/download Methodology: Isothermal Nucleic Acid Amplification Specimen Description .NASOPHARYNGEAL SWAB [facility] Rapid influenza A/B antigens on 06-26-2021 Direct Exam NEGATIVE for Influen za A + B antigens. PCR testing to confirm this result is available upon request. Specimen will be saved in the laboratory for 7 days. Please call [phone] if PCR testing is indicated. [facility] Special Requests NOT REPORTED [facility] Specimen Description .NASOPHARYNGEAL SWAB [facility] XR CHEST PORTABLEon 06-26-20 21 XR CHEST PORTABLE EXAMINATION: ONE XRAY VIEW OF THE CHEST 06/25/2021 11:31 pm COMPARISON: 06/16/2011 HISTORY: ORDERING SYSTEM PROVIDED HISTORY: COUGH TECHNOLOGIST PROVIDED HISTORY: COUGH FINDINGS: The cardiomediastinal silhouette is normal in size and contour. The lungs are clear. No pleural effusion or pneumothorax is present. IMPRESSION: No acute cardiopulmonary process Interpreted by: Daryn Pichardo MD Signed by: Daryn Pichardo MD 06/25/21 Final result Normal [facility] XR CHEST PORTABLEon 06-25-20 No acute cardiopulmo nary process [facility] EXAMINATION: ONE XRAY VIEW OF THE CHEST 06/25/2021 11:31 pm COMPARISON: 06/16/2011 HISTORY: ORDERING SYSTEM PROVIDED HISTORY: COUGH TECHNOLOGIST PROVIDED HISTORY: COUGH FINDINGS: The cardiomediastinal silhouette is normal in size and contour. The lungs are clear. No pleural effusion or pneumothorax is present. [facility] Daryn Pichardo MD - EXAMINATION: ONE XRAY VIEW OF THE CHEST 06/25/2021 11:31 pm COMPARISON: 06/16/2011 HISTORY: ORDERING SYSTEM PROVIDED HISTORY: COUGH TECHNOLOGIST PROVIDED HISTORY: COUGH FINDINGS: The cardiomediastinal silhouette is normal in size and contour. The lungs are clear. No pleural effusion or pneumothorax is present. IMPRESSION: No acute cardiopulmonary process [facility] Phone: Radiology Study observation (narrative) [facility] Phone: XR CHEST PORTABLEOrdered By: Daryn Pichardo on 06-25-2021 [facility] Phone: Office Visit ([facility])on 05-15-2021 Follow-up visit Progress Note Bravo is due to schedule a routine clinic visit with the CF Team. I emailed the following information: Luis Enrique Diez, I hope that you are well. Our CF Team is following up with people who are in need of a routine clinic visit with their CF provider. I see that your last appointment with Dr. Allan was last year on May 18, 2020. To schedule an appointment, please call [phone]. Please feel free to contact me with any questions or concerns. Sincerely, Ella Prasad HEALTH INFORMATION MANAGEMENT DIRECTOR, RPFT Update: Bravo moved to [place] 12/2020 Signatures Electronically signed by : Ella Prasad, ; May 30 2021 4:15PM EST (Author) Normal [facility] Activated Partial Thrombopla stin Timeon 03-09-2020 aPTT Coag (PPP) [Time] 26 {sec} 25 - 35 [facility] Work Phone: Comment on above: THE APTT IS NO LONGE R USED FOR MONITORING UNFRACTIONATED HEPARIN THERAPY. FOR MONITORING HEPARIN THERAPY, USE THE HEPARIN ASSAY. C Reactive Protein, Serumon 03-09-2020 CRP [Mass/Vol] 3.77 mg/dL Abnormal [facility] Work Phone: Comment on above: REF VALUE< 1.00 Complete Blood Count + Diffe rentialon 03-09-2020 Basophils (Bld) [#/Vol] 0.07 {x10E9/L} See Below [facility] Work Phone: Comment on above: Reference Range: 0.0 0 - 0.10 Basophils/100 WBC (Bld) 0.6 % 0.0 - 2.0 [facility] Work Phone: Eosinophils (Bld) [#/Vol] 0.24 {x10E9/L} See Below [facility] Work Phone: Comment on above: Reference Range: 0.0 0 - 0.70 Eosinophils/100 WBC (Bld) 2.1 % 0.0 - 6.0 [facility] Work Phone: Erythrocyte distribution width (RBC) [Ratio] 14.5 % See Below [facility] Work Phone: Comment on above: Reference Range: 11. 5 - 14.5 Hematocrit (Bld) [Volume fraction] 47.8 % See Below [facility] Work Phone: Comment on above: Reference Range: 41. 0 - 52.0 Hemoglobin (Bld) [Mass/Vol] 14.7 g/dL See Below [facility] Work Phone: Comment on above: Reference Range: 13. 5 - 17.5 Lymphocytes (Bld) [#/Vol] 2.39 {x10E9/L} See Below [facility] Work Phone: Comment on above: Reference Range: 1.2 0 - 4.80 Lymphocytes/100 WBC (Bld) 20.8 % See Below [facility] Work Phone: Comment on above: Reference Range: 13. 0 - 44.0 MCHC (RBC) [Mass/Vol] 30.8 g/dL below low threshold See Below [facility] Work Phone: Comment on above: Reference Range: 32. 0 - 36.0 MCV (RBC) [Entitic vol] 87 fL 80 - 100 [facility] Work Phone: Monocytes (Bld) [#/Vol] 0.73 {x10E9/L} See Below [facility] Work Phone: Comment on above: Reference Range: 0.1 0 - 1.00 Monocytes/100 WBC (Bld) 6.3 % 2.0 - 10.0 [facility] Work Phone: Neutrophils/100 WBC (Bld) 69.6 % See Below [facility] Work Phone: Comment on above: Reference Range: 40. 0 - 80.0 Platelets (Bld) [#/Vol] 373 {x10E9/L} 150 - 450 [facility] Work Phone: RBC (Bld) [#/Vol] 5.47 {x10E12/L} See Below [facility] Work Phone: Comment on above: Reference Range: 4.5 0 - 5.90 WBC (Bld) [#/Vol] 0.0 {/100_WBC} 0.0-0.0 [facility] Work Phone: WBC (Bld) [#/Vol] 11.5 {x10E9/L} above high threshold 4.4 - 11.3 [facility] Work Phone: Complete Blood Count + Differential 0.6 % 0.0 - 0.9 [facility] Work Phone: Comment on above: Immature Granulocyte Count (IG) includes promyelocytes, myelocytes and metamyelocytes but does not include bands. Percent differential counts (%) should be interpreted in the context of the absolute cell counts (cells/L). Complete Blood Count + Differential 8.01 {x10E9/L} above high threshold See Below [facility] Work Phone: Comment on above: Reference Range: 1.2 0 - 7.70 Ferritin, Serumon 03-09-2020 Ferritin [Mass/Vol] 253 ug/L 20 - 300 [facility] Work Phone: Gamma Glutamyl Transferase, Serumon 03-09-2020 Gamma glutamyl transferase [Catalytic activity/Vol] 804 U/L above high threshold 5 - 64 [facility] Work Phone: Hematologyon 03-09-2020 INR Coag (PPP) [Relative time] 1.0 {INR} 0.9 - 1.1 [facility] Work Phone: PT Coag (PPP) [Time] 11.6 {sec} See Below [facility] Work Phone: Comment on above: Reference Range: 10. 1 - 13.3 Hemoglobin A1Con 03-09-2020 HbA1c (Bld) [Mass fraction] 10.3 % [facility] Work Phone: Comment on above: Diagnosis of Diabete s-Adults Non-Diabetic: < or = 5.6% Increased risk for developing diabetes: 5.7-6.4% Diagnostic of diabetes: > or = 6.5%. Monitoring of Diabetes Age (y) Therapeutic Goal (%) Adults: >18 <7.0 Pediatrics: 13-18 <7.5 7-12 <8.0 0- 6 7.5-8.5 [place] [employer]. Diabetes Care 33(S1), Jul 2009. HbA1c (Bld) [Mass fraction] 249 {MG/DL} [facility] Work Phone: Immunoglobulin E Level, Seru mon 03-09-2020 IgE Qn 32 {IU/mL} 0 - 214 [facility] Work Phone: Lipid Panelon 03-09-2020 Cholesterol [Mass/Vol] 117 mg/dL 0 - 199 [facility] Work Phone: Comment on above: . AGE DESIRABLE BORD JOSTIN HIGH HIGH 0-19 Y 0 - 169 170 - 199 >/= 200 20-24 Y 0 - 189 190 - 224 >/= 225 >24 Y 0 - 199 200 - 239 >/= 240 All ranges are based on fasting samples. Specific therapeutic targets will vary based on patient-specific cardiac risk.. Pediatric guidelines reference:Pediatrics 2011, 128(S5). Adult guidelines reference: NCEP ATPIII Guidelines, KIRBY 2001, 258:2486-97. Venipuncture immediately after or during the administration of Metamizole may lead to falsely low results. Testing should be performed immediately prior to Metamizole dosing. Cholesterol in HDL [Mass/Vol] 26.6 mg/dL Abnormal [facility] Work Phone: Comment on above: . AGE VERY LOW LOW N ORMAL HIGH 0-19 Y < 35 < 40 40-45 ---- 20- 24 Y ---- < 40 >45 ---- >24 Y ---- < 40 40-60 >60. Cholesterol in LDL [Mass/Vol] 67 mg/dL 0 - 99 [facility] Work Phone: Comment on above: . NEAR BORD AGE ABIMAEL RABLE OPTIMAL HIGH HIGH VERY HIGH 0-19 Y 0 - 109 --- 110-129 >/= 130 ---- 20-24 Y 0 - 119 --- 120-159 >/= 160 ---- >24 Y 0 - 99 100-129 130-159 160-189 >/=190. Cholesterol.total /Cholesterol in HDL [Mass ratio] 4.4 {ratio} [facility] Work Phone: Comment on above: REF VALUESDESIRABLE < 3.4HIGH RISK > 5.0 Triglyceride [Mass/Vol] 118 mg/dL 0 - 149 [facility] Work Phone: Comment on above: . AGE DESIRABLE BORD JOSTIN HIGH HIGH VERY HIGH 0 D-90 D 19 - 174 ---- ---- ----91 D- 9 Y 0 - 74 75 - 99 >/= 100 ---- 10-19 Y 0 - 89 90 - 129 >/= 130 ---- 20-24 Y 0 - 114 115 - 149 >/= 150 ---- >24 Y 0 - 149 150 - 199 200- 499 >/= 500. Venipuncture immediately after or during the administration of Metamizole may lead to falsely low results. Testing should be performed immediately prior to Metamizole dosing. Lipid Panel 24 mg/dL 0 - 40 [facility] Work Phone: Magnesium, Serumon 0 Magnesium [Mass/Vol] 2.23 mg/dL See Below [facility] Work Phone: Comment on above: Reference Range: 1.6 0 - 2.40 Metabolic Panelon 03-09-2020 ALP [Catalytic activity/Vol] 821 U/L above high threshold 33 - 120 [facility] Work Phone: Anion gap [Moles/Vol] 13 mmol/L 10 - 20 [facility] Work Phone: Bilirubin [Mass/Vol] 0.6 mg/dL 0.0 - 1.2 [facility] Work Phone: Calcium [Mass/Vol] 9.1 mg/dL 8.6 - 10.6 [facility] Work Phone: Chloride [Moles/Vol] 100 mmol/L 98 - 107 [facility] Work Phone: CO2 [Moles/Vol] 30 mmol/L 21 - 32 [facility] Work Phone: Creatinine [Mass/Vol] 0.90 mg/dL See Below [facility] Work Phone: Comment on above: Reference Range: 0.5 0 - 1.30 Glucose [Mass/Vol] 219 mg/dL above high threshold 74 - 99 [facility] Work Phone: Iron [Mass/Vol] 35 ug/dL 35 - 150 [facility] Work Phone: Potassium [Moles/Vol] 5.0 mmol/L 3.5 - 5.3 [facility] Work Phone: Protein [Mass/Vol] 7.4 g/dL 6.4 - 8.2 [facility] Work Phone: Sodium [Moles/Vol] 138 mmol/L 136 - 145 [facility] Work Phone: Urea nitrogen [Mass/Vol] 11 mg/dL 6 - 23 [facility] Work Phone: Otheron 03-09-2020 Albumin BCP dye [Mass/Vol] 4.0 g/dL 3.4 - 5.0 [facility] Work Phone: Albumin Ql (U) 136.3 mg/L See Below [facility] Work Phone: Comment on above: Reference Range: Not Established ALT With P-5'-P [Catalytic activity/Vol] 127 U/L above high threshold 10 - 52 [facility] Work Phone: Comment on above: Patients treated wit h Sulfasalazine may generate falsely decreased results for ALT. AST With P-5'-P [Catalytic activity/Vol] 84 U/L above high threshold 9 - 39 [facility] Work Phone: Iron binding capacity [Mass/Vol] 357 ug/dL 240 - 445 [facility] Work Phone: Testosterone [Mass/Vol] 800 ng/dL 250-1100 [facility] Work Phone: Comment on above: For additional infor mation, please refer tohttp://education.[employer]/faq/TotalTestosteroneLCMSMSF [email or web address](This link is being provided for informational/educational purposes only.) This test was developed and its analytical performancecharacteristics have been determined by [employer] [place], [place]. It hasnot been cleared or approved by the U.S. Food and DrugAdministration. This assay has been validated pursuantto the CLIA regulations and is used for clinicalpurposes. Testosterone Free [Mass/Vol] 312.0 pg/mL above high threshold 35.0-155.0 [facility] [facility] Work Phone: Comment on above: This test was develo ped and its analytical performancecharacteristics have been determined by [employer] [place], [place]. It hasnot been cleared or approved by the U.S. Food and DrugAdministration. This assay has been validated pursuantto the CLIA regulations and is used for clinicalpurposes. 10 % below low threshold 25 - 45 [facility] [address] Work Phone: >60 >60 [facility] [address] Work Phone: Comment on above: CALCULATIONS OF ARTIS MATED GFR ARE PERFORMED USING THE MDRD STUDY EQUATION FOR THE IDMS-TRACEABLE CREATININE METHODS. CLIN CHEM 2007;53:766-72 Sedimentation Rate, Erythroc yteon 03-09-2020 ESR (Bld) [Velocity] 72 mm/h above high threshold 0 - 15 [facility] [address] Work Phone: TSH - Thyroid Stimulating Ho rmpepper, Serumon 03-09-2020 TSH Qn 2.29 {mIU/L} See Below [facility] [address] Work Phone: Comment on above: Reference Range: 0.4 4 - 3.98 TSH testing is performed using different testing methodology at [facility] than at other [facility] hospitals. Direct result comparisons should only be made within the same method. Thyroxine, Serum (T4)on T4 [Mass/Vol] 4.5 ug/dL 4.5 - 11.1 [facility]iatri cs -[place] Work Phone: Urinalysison 03-09-2020 Appearance (U) CLEAR CLEAR [facility] [address] Work Phone: Color (U) YELLOW See Below [facility] [address] Work Phone: Comment on above: Reference Range: STR AW,YELLOW Glucose Ql (U) >=500 (3+) Abnormal NEGATIVE [facility] [address] Work Phone: Ketones Ql (U) Negative NEGATIVE [facility] Work Phone: Leukocyte esterase Test strip Ql (U) Negative NEGATIVE [facility] [address] Work Phone: pH (U) 6.0 [pH] 5.0 - 8.0 [facility] [address] Work Phone: Protein (U) [Mass/Vol] 30 (1+) Abnormal NEGATIVE [facility] [address] Work Phone: RBC (U) [#/Vol] Negative NEGATIVE [facility] [address] Work Phone: Specific gravity (U) [Rel density] 1.028 See Below [facility] [address] Work Phone: Comment on above: Reference Range: 1.0 05 - 1.035 Urinalysis Negative NEGATIVE [facility] [address] Work Phone: Urinalysis <2.0 0.0 - 1.9 [facility] [address] Work Phone: Albumin/Creatinin e DL <= 20 mg/L (U) [Mass ratio] 126.2 {ug/mg_crt} above high threshold 0.0 - 30.0 [facility] [address] Work Phone: Creatinine (U) [Mass/Vol] 108.0 mg/dL See Below [facility] [address] Work Phone: Comment on above: Reference Range: 20. 0 - 370.0 Urinalysis, Microscopicon Urinalysis, Microscopic 2 {/HPF} 0-5 [facility] [address] Work Phone: Urinalysis, Microscopic 1 {/HPF} [facility] [address] Work Phone: Urinalysis, Microscopic 1+ [facility] [address] Work Phone: Vitamin A, Serumon 0 Retinol [Mass/Vol] 29.7 ug/dL 18.9-57.3 [facility] [facility] Work Phone: Comment on above: Reference intervals for vitamin A determined from [facility]. Individuals with vitamin A less than 20 ug/dL are consideredvitamin A deficient and those with serum concentrations less than10 ug/dL are considered severely deficient.This test was developed and its performance characteristicsdetermined by [employer] It has not been cleared or approvedby the Food and Drug Administration.Test(s) 112871-Bjroykd E(Alpha Tocopherol); 573071-Mderuoa E(Gamma Tocopherol)was developed and its performance characteristics determinedby [employer] It has not been cleared or approved by the Foodand Drug Administration. Vitamin D 25-Hydroxyon 03-09 Calcidiol [Mass/Vol] 18 ng/mL Abnormal [facility] [address] Work Phone: Comment on above: .DEFICIENCY: < 20 NG /MLINSUFFICIENCY: 20-29 NG/MLSUFFICIENCY: 30-100 NG/MLTHIS ASSAY ACCURATELY QUANTIFIES THE SUM OFVITAMIN D3, 25-HYDROXY AND VIT D2,25-HYDROXY.{ Vitamin E, Serumon 0 Alpha tocopherol [Mass/Vol] 4.2 mg/L below low threshold 5.9-19.4 [facility] [facility] Work Phone: Gamma tocopherol [Mass/Vol] 0.9 mg/L 0.7-4.9 [facility] [address] [facility] Work Phone: Comment on above: Reference intervals for alpha and gamma-tocopherol determined fromSolon Health and Nutrition Examination Survey, 7414-5156.Individuals with alpha-tocopherol levels less than 5.0 mg/L areconsidered vitamin E deficient.Test(s) 207378-Fgqbdek E(Alpha Tocopherol); 276487-Sprajno E(Gamma Tocopherol)was developed and its performance characteristics determinedby [employer] It has not been cleared or approved by the Foodand Drug Administration. Coronavirus 2019 RNA by PCR, Symptomaticon 02-24-2020 Coronavirus 2019 RNA by PCR, Symptomatic NOT DETECTED See Below [facility] [address] [facility] Work Phone: Comment on above: SOURCE: Nasal, Nasop haryngealReference Range: Not DetectedThis assay is designed to detect the N, ORF1ab and/or S genes of SARS-CoV-2 via nucleic acid amplification. A Negative (NOT DETECTED) result does not preclude 2019-nCoV infection since the adequacy of sample collection and/or low viral burden may result in presence of viral nucleic acids below the clinical sensitivity of this test method. Negative (NOT DETECTED) result should not be used as the sole basis for treatment or other patient management decisions. Rather negative results should be combined with clinical observations, patient history, and epidemiological information to make patient management decisions.Fact sheet for providers: https://www.fda.gov/media/318374/downloadFact sheet for patients: https://www.fda.gov/media/026722/downloadThis test has received FDA Emergency Use Authorization (EUA) and has been verified by [facility] ([facility]). This test is only authorized for the duration of time that circumstances exist to justify the authorization of the emergency use of in vitro diagnostic tests for the detection of SARS-CoV-2 virus and/or diagnosis of COVID-19 infection under section 564(b)(1) of the Act, 21 U.S.C. 360bbb-3(b)(1), unless the authorization is terminated or revoked sooner. [facility] is certified under CLIA-88 as qualified to perform high complexity testing. Testing is performed in the [facility] laboratories located at [address] [place] [address]. [place]enton 01-22-2020 Consent [id number]:127 Normal [facility] Cult, AFB, Misc.+ smearon Mycobacterium sp identified Org specific cx Nom (Unsp spec) PATIENT: BRAVO ALBRECHT LOCATION: C1070 BILL#: [id number] : 83 AGE: SEX: M ORDERED BY: SHEREE ALLAN: SPUTUM COLLECTED: 09/09/19 08:52ANTIBIOTICS AT NEERAJ.: RECEIVED : 09/09/19 20:27SITE: R E S U L T S AFB SMEAR FINAL 09/11/19 14:04 ACID FAST SMEAR = 4+ ACID FAST BACILLI OBSERVED. AFB CULTURE/, MISC PRELIM 09/14/19 12:24 CULTURE IN PROGRESS AND WILL BE EXAMINED WEEKLY. A RESULT WILL BE ISSUED EITHER WHEN POSITIVE OR AFTER 8 WEEKS INCUBATION. ISOLATE1 : Acid-fast bacilli ISOLATED FROM LIQUID MEDIA Abnormal [facility] [address] [place] [address] Ctr Work Phone: Comment on above: CALLED GEORGINA CARSON , 09/11/2019 15:03 Mycobacterium sp identified Org specific cx Nom (Unsp spec) PATIENT: BRAVO ALBRECHT LOCATION: [facility] BILL#: [id number] : 83 AGE: SEX: M ORDERED BY: SHEREE ALLAN: SPUTUM COLLECTED: 09/09/19 08:52ANTIBIOTICS AT NEERAJ.: RECEIVED : 09/09/19 20:27SITE: R E S U L T S AFB SMEAR FINAL 09/11/19 14:04 ACID FAST SMEAR = 4+ ACID FAST BACILLI OBSERVED. AFB CULTURE/, MISC PRELIM 09/21/19 09:28 CULTURE IN PROGRESS AND WILL BE EXAMINED WEEKLY. A RESULT WILL BE ISSUED EITHER WHEN POSITIVE OR AFTER 8 WEEKS INCUBATION. 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 FINAL 09/12/19 11:46 2+ NORMAL THROAT MARIZA. ISOLATE2 : Staphylococcus aureus 1+ METHICILLIN(OXACILLIN)SUSCEP TIBLE STAPHYLOCOCCI ARE SUSCEPTIBLE TO SEMI-SYNTHETIC PENICILLINS (OXACILLIN,NAFCILLIN, ETC),BETA-LACTAM/BETA-LACTAM ASE INHIBITOR COMBINATIONS(INCLUDING AMPICILLIN/SULBACTAM, AMOXICILLIN/CLAVULANATE AND PIPERACILLIN/TAZOBACTAM), CARBAPENEMS AND CEPHALOSPORINS APPROVED FOR USE BY THE FDA FOR STAPHYLOCOCCAL INFECTIONS. Organism S aureus Antibiotic BP INTRP Clindamycin R Ciprofloxacin I Erythromycin R Levofloxacin S Oxacillin S Trimeth/Sulfa S Tetracycline S Vancomycin S S=SUSC EPTIBLE I=INTERMEDIATE R=RESISTANT SDD=SUSCEPTIBLE DOSE DEPENDENT NS=NONSUSCEPTIBLEX=REPORTED IN ERROR Abnormal [facility] [facility] Work Phone: IO Spirometryon 09-09-2019 IO Spirometry 75 [facility] [address] [facility] Work Phone: IO Spirometry 4.28 [facility] [facility] Work Phone: IO Spirometry 95 [facility] [address] [facility] Work Phone: IO Spirometry 5.70 [facility] [facility] Work Phone: IO Spirometry 102 [facility] [address] [facility] Work Phone: IO Spirometry 74 [facility] [facility] Work Phone: IO Spirometry 3.21 [facility] [address] [facility] Work Phone: Vital Signs Date Time Vital Sign Value Performing Clinician Facility 10-01-2023 15:12-0400 Diastolic blood pressure 70 mm[Hg] Peter Deleon MD Work Phone: [facility] 10-01-2023 15:12-0400 Heart rate 99 /min Peter Deleon MD Work Phone: [facility] 10-01-2023 15:12-0400 Respiratory rate 16 /min Peter Deleon MD Work Phone: [facility] 10-01-2023 15:12-0400 SaO2% (BldA) [Mass fraction] 95 % Peter Deleon MD Work Phone: [facility] 10-01-2023 15:12-0400 Systolic blood pressure 111 mm[Hg] Peter Deleon MD Work Phone: [facility] 10-01-2023 14:15-0400 Body temperature 97.3 [degF] Peter Deleon MD Work Phone: [facility] 10-01-2023 13:01-0400 Body height 180.3 cm Peter Deleon MD Work Phone: [facility] 10-01-2023 13:01-0400 Body mass index (BMI) [Ratio] 22.59 kg/m2 Peter Deleon MD Work Phone: [facility] 10-01-2023 13:01-0400 Body weight 73.48 kg Peter Deleon MD Work Phone: [facility] 10-27-2021 22:59-0400 Diastolic blood pressure 60 mm[Hg] Homer Joyaronald [facility] 10-27-2021 22:59-0400 Heart rate 91 /min Homer Roehronald [facility] 10-27-2021 22:59-0400 Respiratory rate 28 /min Homer Roehronald [facility] 10-27-2021 22:59-0400 SaO2% (BldA) [Mass fraction] 94 % Homer Joyaronald [facility] 10-27-2021 22:59-0400 Systolic blood pressure 118 mm[Hg] Homer Kristykareenronald [facility] 10-27-2021 21:29-0400 Body temperature 99.9 [degF] Homer Joyaronald [facility] [employer] 10-04-2021 09:42-0400 Body height 181.9 cm Jaleesa Allan PhD Work Phone: MB-Jgbnrxjhxp-Dblfu ow [address] [facility] Work Phone: 10-04-2021 09:42-0400 Body mass index (BMI) [Ratio] 25.98 kg/m2 Jaleesa Allan PhD Work Phone: GL-Zhslegeauv-Sdwvi ow [address] [facility] Work Phone: 10-04-2021 09:42-0400 Body surface area Derived from formula 2.07 m2 Jaleesa Allan PhD Work Phone: QZ-Ytdbbkbdwt-Mogzu ow [address] [facility] Work Phone: 10-04-2021 09:42-0400 Body temperature 98.3 [degF] Jaleesa Allan PhD Work Phone: ZD-Sqebxodqhs-Fpzcc ow [address] [facility] Work Phone: 10-04-2021 09:42-0400 Body weight 85.95 kg Jaleesa Allan PhD Work Phone: IU-Ufrpinnpot-Kasss ow [address] [facility] Work Phone: 10-04-2021 09:42-0400 Diastolic blood pressure 88 mm[Hg] Jaleesa Allan PhD Work Phone: BX-Vvjfqkyvvl-Bgrdm ow [address] [facility] Work Phone: 10-04-2021 09:42-0400 Heart rate 102 /min Jaleesa Allan PhD Work Phone: CB-Baisdvgjwu-Jcgxs ow [address] [facility] Work Phone: 10-04-2021 09:42-0400 Respiratory rate 17 /min Jaleesa Allan PhD Work Phone: RV-Fwktwvgetz-Aywzq ow [address] [facility] Work Phone: 10-04-2021 09:42-0400 Systolic blood pressure 141 mm[Hg] Jaleesa Allan PhD Work Phone: [facility] Work Phone: 07-17-2021 20:00-0500 Diastolic blood pressure 78 mm[Hg] Kaelyn Acuna MD Work Phone: [employer] 07-17-2021 20:00-0500 Heart rate 96 /min Kaelyn Acuna MD Work Phone: [facility] 07-17-2021 20:00-0500 SaO2% (BldA) [Mass fraction] 95 % Kaelyn Acuna MD Work Phone: [employer] 07-17-2021 20:00-0500 Systolic blood pressure 132 mm[Hg] Kaelyn Acuna MD Work Phone: [employer] 07-17-2021 19:24-0500 Body temperature 97.81 [degF] Kaelyn Acuna MD Work Phone: [employer] 07-17-2021 19:24-0500 Respiratory rate 18 /min Kaelyn Acuna MD Work Phone: [employer] 06-26-2021 02:10-0500 Diastolic blood pressure 74 mm[Hg] Rebecca Nayak MD Work Phone: [facility] 06-26-2021 02:10-0500 Heart rate 83 /min Rebecca Nayak MD Work Phone: [facility] 06-26-2021 02:10-0500 SaO2% (BldA) [Mass fraction] 97 % Rebecca Nayak MD Work Phone: [facility] 06-26-2021 02:10-0500 Systolic blood pressure 140 mm[Hg] Rebecca Nayak MD Work Phone: [facility] 06-25-2021 23:03-0500 Body temperature 99.81 [degF] Rebecca Nayak MD Work Phone: [facility] [employer] 06-25-2021 23:03-0500 Body weight 85.73 kg Rebecca Nayak MD Work Phone: [facility] [employer] 06-25-2021 23:03-0500 Respiratory rate 16 /min Rebecca Nayak MD Work Phone: [facility] [employer] 03-30-2020 10:43-0400 BMI (Body Mass Index) 25.03 kg/m2 Margaret Briceño WG-Uypxlitmls-Eswjb ow [address] [facility] Work Phone: 03-30-2020 10:43-0400 Body Temperature 98.1 [degF] Margaret Briceño KF-Lqargkzkpt-U ainb ow [facility] Work Phone: 03-30-2020 10:43-0400 Body weight 82 kg Margaret Briceño LA-Oujovwvexq-De inb ow [address] [facility] Work Phone: 03-30-2020 10:43-0400 BP Diastolic 91 mm[Hg] Margaret Briceño JL-Pxazhnzkha-Uw inb ow [address] [facility] Work Phone: 03-30-2020 10:43-0400 BP Systolic 135 mm[Hg] Margaret Briceño XR-Onpmigjejc-Wj inb ow [facility] Work Phone: 03-30-2020 10:43-0400 BSA (Body Surface Area) 2.03 m2 Margaret Briceño XO-Nvczlewniw-Ltcpb ow [facility] Work Phone: 03-30-2020 10:43-0400 Height 181 cm Margaret Briceño XS-Rfomoisczx-Kf inb ow [address] [facility] Work Phone: 03-30-2020 10:43-0400 Pulse (Heart Rate) 110 /min Margaret Briceño [facility]-Pediatrics -[facility] Work Phone: 03-30-2020 10:43-0400 Pulse Oximetry 97 % Margaret Briceño GJ-Vtkylrcras-Cn inb ow [address] [facility] Work Phone: 03-30-2020 10:43-0400 Respiratory Rate 20 /min Margaret Briceño IH-Bzmefpwnzj-L ainb ow [facility] Work Phone: 03-09-2020 16:11-0400 BMI (Body Mass Index) 27.15 kg/m2 Irene Kimberly OP-Exbiycedla-Tavbx ow [address] [facility] Work Phone: 03-09-2020 16:11-0400 Body Temperature 98.1 [degF] Irene Lopezinski JF-Rrlkodapwg-A ainb ow [address] [facility] Work Phone: 03-09-2020 16:11-0400 Body weight 88.95 kg Irene Kimberly ZZ-Eyogbkuzzq-Ml inb ow [facility] Work Phone: 03-09-2020 16:11-0400 BP Diastolic 85 mm[Hg] Irene Lopezinski KZ-Ywweckgppp-Ux inb ow [facility] Work Phone: 03-09-2020 16:11-0400 BP Systolic 148 mm[Hg] Irene Lopezinski LO-Enlfqvbovz-Un inb ow [address] [facility] Work Phone: 03-09-2020 16:11-0400 BSA (Body Surface Area) 2.1 m2 Irene Lopezinski YL-Ekebodnjhy-Sbabm ow [facility] Work Phone: 03-09-2020 16:11-0400 Height 181 cm Irene Lopezinski YR-Nibbysgjmy-Rp inb ow [facility] Work Phone: 03-09-2020 16:11-0400 Pulse (Heart Rate) 101 /min Irene Lopezinski [facility] [facility] Work Phone: 03-09-2020 16:11-0400 Pulse Oximetry 96 % Irene Lopezinski WG-Lyscfwhtxs-Ws inb ow [address] [facility] Work Phone: 03-09-2020 16:11-0400 Respiratory Rate 20 /min Irenecleve LopezKimberly KE-Mjpvewaiqc-G ainb ow [address] [facility] Work Phone: 09-09-2019 11:09-0500 BMI (Body Mass Index) 27.2 kg/m2 Irene Kimberly GF-Tbsyoundnc-Yovnm ow [address] [facility] Work Phone: 09-09-2019 11:09-0500 Body Temperature 98.1 [degF] Irene Kimberly WU-Peapiyzrwk-O ainb ow [address] [facility] Work Phone: 09-09-2019 11:09-0500 Body weight 89.1 kg Irene Kimberly PO-Zrbhiqnfnb-Vk inb ow [address] [facility] Work Phone: 09-09-2019 11:09-0500 BP Diastolic 96 mm[Hg] Irene Kimberly OB-Sziogsrbld-Nj inb ow [address] [facility] Work Phone: 09-09-2019 11:09-0500 BP Systolic 152 mm[Hg] Irene Kimberly KD-Cizcrhamoi-Db inb ow [address] [facility] Work Phone: 09-09-2019 11:09-0500 BSA (Body Surface Area) 2.1 m2 Irene Kimberly HK-Tvtvrfgwnr-Eaokp ow [address] [facility] Work Phone: 09-09-2019 11:09-0500 Height 181 cm Irene Kimberly SH-Dbjpmvaqcb-Bd inb ow [address] [facility] Work Phone: 09-09-2019 11:09-0500 Pulse (Heart Rate) 100 /min Irene Kimberly MG-Pediatrics -[facility] [facility] Work Phone: 09-09-2019 11:09-0500 Pulse Oximetry 98 % Irene Kimberly DI-Ejmcwutqhl-Be inb ow [address] [facility] Work Phone: 09-09-2019 11:09-0500 Respiratory Rate 20 /min Irene Kimberly PJ-Ydsnlknrdv-P ainb ow [address] [facility] Work Phone: Encounters Encounter Date Encounter Type Care Provider Facility Start: 10-01-2023 End: 10-02-2023 ambulatory PETER GLASER V [facility] Start: 10-01-2023 End: 10-01-2023 Subsequent hospital visit by physician Peter Glaser MD Work Phone: [facility] Comment on above: Cystic fibrosis with pulmonary manifestations ([facility]/HCC) Start: 09-18-2023 End: 09-18-2023 ambulatory CARMELITA WATERS [facility] Start: 09-18-2023 End: 09-19-2023 ambulatory IRENE KAISER [facility] Start: 09-18-2023 End: 09-18-2023 Subsequent hospital visit by physician Arnulfo Guo [address] [facility] Comment on above: Mycobacterial, atypi jorge alberto; Cystic fibrosis ([facility]) CF (cystic fibrosis) ([facility]) Start: 04-24-2023 End: 04-24-2023 ambulatory CARMELITA WATERS [facility] Start: 03-01-2022 End: 03-01-2022 ambulatory MIRA NUNEZ Facility:[facility] Start: 01-10-2022 End: 01-10-[address] MARYLOU KAUFMAN Facility:[facility] Start: 01-03-2022 Patient encounter procedure Jaleesa Allan PhD Work Phone: YS-Vkkpnzwrej-Rfwsnef [facility] Work Phone: Start: 10-30-2021 Chart Update Jaleesa newton PhD Work Phone: YO-Zvodquydlp-Yzmpnfk [address] [facility] Work Phone: Start: 10-27-2021 End: 10-28-2021 Emergency department patient visit MIRIAN GREENWOOD [facility] Start: 10-27-2021 End: 10-27-2021 Emergency department patient visit Homer Sewell DO [facility] ED Comment on above: Acute viral syndrome (Primary Dx); Neurapraxia of left lower extremity, initial encounter Start: 10-25-2021 AUDIT Irene Kaiser MD Work Phone: AI-Mdmpicprcd-Kzsm Admin [facility] 737 Work Phone: Start: 10-11-2021 Chart Update Jaleesa newton PhD Work Phone: VY-Mddrpqeadr-Omfqsei [address] [facility] Work Phone: Start: 10-10-2021 Chart Update Jaleesa newton PhD Work Phone: NW-Itqyjwmlok-Vvbmqck [address] [facility] Work Phone: Start: 10-05-2021 Chart Update Jaleesa newton PhD Work Phone: HQ-Jbztttamdr-Xyoujzy [facility] Work Phone: Start: 10-04-2021 Chart Update Jaleesa newton PhD Work Phone: KL-Mwnmqgatae-Mksfgaa [address] [facility] Work Phone: Start: 10-04-2021 CYSFBPPFUV, Provider : Jaleesa Allan, Status: Pen, Time: 10:00 AM Jaleesa Allan PhD Work Phone: DA-Uxtjxxcoty-Zcmhgoc [address] [facility] Work Phone: Start: 10-04-2021 Office outpatient vi sit 40 minutes Jaleesa Allan PhD Work Phone: SL-Mdnhzotrqm-Bmzaayj [address] [facility] Work Phone: Start: 10-04-2021 SPIROMETRY, Provider : PULSushma RUVALCABA,PD_DIA_PULMLAB, Status: Pen, Time: 9:45 AM Jaleesa Allan PhD Work Phone: BC-Uilevtbqbv-Wojejgi [address] [facility] Work Phone: Start: 10-03-2021 AUDIT Jaleesa newton PhD Work Phone: DO-Cmwgtikosj-Lfjlekg [address] [facility] Work Phone: Start: 08-08-2021 End: 08-09-2021 ambulatory MIRIAN GREENWOOD [facility] Start: 07-27-2021 End: 07-28-2021 ambulatory MIRIAN GREENWOOD [facility] Start: 07-26-2021 End: 07-27-2021 ambulatory MIRIAN GREENWOOD [facility] Start: 07-17-2021 Emergency department patient visit KAELYN ACUNA [facility] Start: 07-17-2021 End: 07-17-2021 Emergency department patient visit Kaelyn Acuna MD Work Phone: [facility] ED Comment on above: Viral illness (Prima ry Dx) Start: 06-26-2021 End: 06-26-2021 Emergency department patient visit REBECCA NAYAK [facility] Start: 06-25-2021 End: 06-26-2021 Emergency department patient visit Rebecca Nayak MD Work Phone: [facility] ED Comment on above: Viral illness (Prima ry Dx); Acute upper respiratory infection; Dehydration Start: 2021 Chart Update Kapil Covarrubias 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 Phone: CG-Pzhrctqzhv-Ffsirvx [address] Work Phone: Start: 03-30-2020 Patient encounter procedure Margaret Pérezmings UZ-Vqijcvkgxx-Lhfzbdc [address] [facility] Work Phone: Start: 03-09-2020 Patient encounter procedure Irene Lopezinski PR-Devwnqqehs-Ytewpkz [address] [facility] Work Phone: Start: 09-18-2019 Patient encounter procedure Irene Kaiser MR-Mwklviuoyr-Vcbgwvp [address] [facility] Work Phone: Start: 09-09-2019 Patient encounter procedure Irene Lopezinski RI-Glihzacltb-Tuxvpco [address] [facility] Work Phone: Start: 06-10-2019 Patient encounter procedure Irene Lopezinski BL-Oczugyotuh-Wtoztmk [address] [facility] Work Phone: Start: 03-11-2019 Patient encounter procedure Irene PEDERSENZB-Vgdaxvdhto-Izyuhts [address] [facility] Work Phone: Start: 08-27-2018 Patient encounter procedure Irene IRIZARRYGT-Sjkzdodhyn-Vpqvrgl [address] [facility] Work Phone: Start: 07-21-2018 Patient encounter procedure Irene IRIZARRYII-Jsdqffsohv-Rplggzr [address] [facility] Work Phone: Start: 12-18-2017 Patient encounter procedure Irene IRIZARRYZE-Lkehyyrins-Bmrxawa [address] [facility] Work Phone: Start: 11-06-2017 Patient encounter procedure Irene IRIZARRYYO-Culfdmqdqf-Uihrmha [address] [facility] Work Phone: Procedures Date Procedure Procedure Detail Performing Clinician Start: 10-01-2023 BRONCHOSCOPY CARMELITA WATERS Start: 10-01-2023 RESPIRATORY CULTURE/SMEAR CARMELITA WATERS Start: 10-01-2023 AFB CULTURE/SMEAR SARATH WATERS Start: 10-01-2023 FUNGAL CULTURE/SMEAR RAVIN WATERS Start: 10-01-2023 RESPIRATORY CULTURE, CYSTIC FIBROSIS CARMELITA WATERS Start: 10-01-2023 Glucose [Mass/volume ] in Serum or Plasma CARMELITA WATERS Start: 10-01-2023 End: 10-01-2023 Smr prim src gram/giemsa stain bct fungi/cell Peter Glaser MD Work Phone: Start: 10-01-2023 Bacteria identified in Sputum by Cystic fibrosis respiratory culture Peter Glaser MD Work Phone: Start: 10-01-2023 Glucose quantitative blood xcpt reagent strip Peter Glaser MD Work Phone: Start: 09-19-2023 POCT GLYCOSYLATED HEMOGLOBIN (HGB A1C) CARMELITA WATERS Start: 09-18-2023 AFB CULTURE/SMEAR SARATH WATERS Start: 09-18-2023 FUNGAL CULTURE/SMEAR RAVIN WATERS Start: 09-18-2023 RESPIRATORY CULTURE, CYSTIC FIBROSIS CARMELITA WATERS Start: 09-18-2023 CT CHEST WO IV CONTRAST CARMELITA WATERS Start: 09-18-2023 SPIROMETRY CARMELITA WATERS Start: 09-18-2023 Ct thorax w/o contra st material Carmelita Waters MD Work Phone: Start: 09-18-2023 Spmtry w/vc expirato ry juve w/wo mxml vol vntj Carmelita Waters MD Work Phone: Start: 04-24-2023 XR CHEST 2 VIEWS KANE ANTHONY BOLIVAR Start: 04-24-2023 FLU VACCINE (IIV4) G REATER THAN OR EQUAL TO 3YO PRESERVATIVE FREE CARMELITA BOLIVAR Start: 04-24-2023 AFB CULTURE/SMEAR SARATH ONEAL BOLIVAR Start: 04-24-2023 FUNGAL CULTURE/SMEAR RAVIN DRE[employer]AMHandy Start: 04-24-2023 RESPIRATORY CULTURE, CYSTIC FIBROSIS CARMELITA DREWMARI Start: 04-24-2023 MISCELLANEOUS LAB TEST CARMELITA [employer]RE[employer] Start: 04-24-2023 VITAMIN A CARMELITA WATERS Start: 04-24-2023 ALBUMIN, URINE RANDOM K DANIA [employer]RE[employer]AMHandy Start: 04-24-2023 CBC W Auto Different ial panel - Blood CARMELITA WATERS Start: 04-24-2023 GAMMA-GLUTAMYL TRANSFERASE CARMELITA WATERS Start: 04-24-2023 Hemoglobin A1c/Hemoglobin.total in Blood CARMELITA DREWCAMHandy Start: 04-24-2023 Hepatic function 200 0 panel - Serum or Plasma CARMELITA DREWCAMHandy Start: 04-24-2023 IMMUNOGLOBULIN IGE VELIACleve WATERS Start: 04-24-2023 Lipid panel CARMELITA WATERS Start: 04-24-2023 RENAL FUNCTION PANEL RAVIN DREWCAMHandy Start: 04-24-2023 URINALYSIS MICROSCOPIC ONLY CARMELITA BOLIVAR Start: 04-24-2023 VITAMIN D 25-HYDROXY,TOTAL CARMELITA WATERS Start: 04-24-2023 VITAMIN E CARMELITA WATERS Start: 04-24-2023 PULMONARY FUNCTION TESTING CARMELITA DREWCAMHandy Start: 04-24-2023 Lipid 1996 panel - S gio or Plasma Cmc 1 Start: 01-03-2022 Follow-up visit Start: 10-27-2021 COVID-19, RAPID Homer Sewell Work Phone: Start: 10-27-2021 Iaadiadoo influenza Mat elvia Sewell Work Phone: Start: 10-27-2021 Radiologic exam ches t single view Homer Sewell DO Start: 10-27-2021 Basic metabolic pane l calcium total Homer Sewell DO Start: 10-27-2021 Ecg routine ecg w/le ast 12 lds w/i&r Homer Sewell DO Start: 07-17-2021 COVID-19, RAPID Kaelyn Acuna MD Work Phone: Start: 07-17-2021 Radiologic exam ches t single view Kaelyn Acuna MD Work Phone: Start: 06-25-2021 COVID-, RAPID Rebecca Nayak MD Work Phone: Start: 06-25-2021 Iaadiadoo influenza Fatmata Nayak MD Work Phone: Start: 06-25-2021 Radiologic exam ches t single view Rebecca Nayak MD Work Phone: Start: 04-06-2020 Colonoscopy Margaret Elisam ings Start: 04-06-2020 Endoscopy - Upper GI Li nda Keyanna Start: 04-05-2020 Colonoscopy Margaret Cumm ings Start: 04-05-2020 Endoscopy - Upper GI Li nda Briceño Start: 03-30-2020 Alpha-fetoprotein serum Margaret Keyanna Start: 03-30-2020 Colonoscopy Margaret Cumm ings Start: 03-30-2020 Endoscopy - Upper GI Li nda Briceño Start: 03-14-2020 Ultrasound Liver Irene bautista Start: 03-09-2020 25 hydroxy includes fractions if performed Irene Kaiser Start: 03-09-2020 Albumin, Urine Spot Maddison Kaiser Start: 03-09-2020 Assay of ferritin Irene Kaiser Start: 03-09-2020 Assay of gammaglobulin ige Irene Kaiser Start: 03-09-2020 Assay of glutamyltra se gamma Irene Kaiser Start: 03-09-2020 Assay of magnesium Irene Kaiser Start: 03-09-2020 Assay of thyroid stimulating hormone tsh Irene Kaiser Start: 03-09-2020 Assay of thyroxine total Irene Kaiser Start: 03-09-2020 Assay of tocopherol alpha vitamin e Irene Kaiser Start: 03-09-2020 Assay of vitamin a Irene Kaiser Start: 03-09-2020 Blood count complete auto&auto difrntl wbc Irene Kaiser Start: 03-09-2020 C-reactive protein Irene Kaiser Start: 03-09-2020 Comprehensive metabo lic 2000 panel Irene Kaiser Start: 03-09-2020 Hemoglobin glycosylated a1c Irene Kaiser Start: 03-09-2020 Iron + TIBC, Serum Irene Kaiser Start: 03-09-2020 Lipid panel Irene Barnett [facility] Start: 03-09-2020 PT/INR Irene Anibal [facility] Start: 03-09-2020 Sedimentation rate r bc automated Irene Kaiser Start: 03-09-2020 Testosterone [Mass/v olume] in Serum or Plasma Irene Kaiser Start: 03-09-2020 Thromboplastin time partial plasma/whole blood Irene Kaiser Start: 03-09-2020 Urnls dip stick/tabl et rgnt auto w/o microscopy Irene Kaiser Start: 03-08-2020 Cul bact xcpt urine blood/stool aerobic isol Irene Kaiser Start: 02-22-2020 Coronavirus 2019 RNA by PCR, Symptomatic Irene Kaiser Start: 06-06-2019 Cul bact xcpt urine blood/stool aerobic isol Irene Kaiser Arthroplasty of knee Kapil Covarrubias [employer]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 Phone: Hernia repair Kapil Covarrubias A PRN-MACHINE BANDER AND 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 Work Phone: History of Knee Surg bernard Left Irene Kaiser History of Rhinoplasty Irene Kaiser History of Simple Ex cision Of Nasal Polyp Irene Lopezinski Nasal polypectomy Kapil ahuja 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 Phone: Plan of Treatment Date Care Activity Detail Author Start: 2034 Zoster Vaccines (1 o f 2) Zoster Vaccines (1 of 2) [facility] Start: 04-24-2024 Lipid panel Lipid Panel [facility] Start: 04-24-2024 Urine screening for protein Diabetes: Urine Protein Screening [facility] Start: 12-20-2023 Hemoglobin A1c measurement Diabetes: Hemoglobin A1C [facility] Start: 07-25-2023 Hemoglobin A1c measurement Diabetes: Hemoglobin A1C [facility] Start: 03-08-2023 COVID-19 Vaccine ( season) COVID-19 Vaccine ( season) [facility] Start: 08-08-2022 Depression Screen Depression Screen [facility] Start: 08-08-2022 Diabetic foot examination Diabetic foot exam [facility] Start: 08-08-2022 Urine screening for protein Diabetic microalbuminuria test [facility] Start: 07-26-2022 Lipid panel Lipids [facility] Start: 03-08-2022 Influenza vaccination Flu vacc ine (Season Ended) [facility] Start: 01-03-2022 CFGASFUV, Provider: Margaret Briceño, Status: Pen, Time: 2:30 PM CFGASFUV, Provider: Margaret Briceño, Status: Pen, Time: 2:30 PM DH-Pmtaxysphy-Anxs bow [address] Work Phone: Start: 01-03-2022 CYSFBPPFUV, Provider : Jaleesa Allan, Status: Pen, Time: 2:00 PM CYSFBPPFUV, Provider: Jaleesa Allan, Status: Pen, Time: 2:00 PM IU-Ioqqbtqysb-Ricc bow [address] Work Phone: Start: 01-03-2022 SPIROMETRY, Provider : PULM LAB,PD_DIA_PULMLAB, Status: Pen, Time: 1:45 PM SPIROMETRY, Provider: PULM LAB,PD_DIA_PULMLAB, Status: Pen, Time: 1:45 PM TN-Gcckgtsngx-Fxrv bow [address] Work Phone: Start: 11-29-2021 CFENDOPFUV, Provider : Irene Kaiser, Status: Pen, Time: 1:00 PM CFENDOPFUV, Provider: Irene Kaiser, Status: Pen, Time: 1:00 PM JZ-Uvycqvybyb-Iptp bow [address] Work Phone: Start: 11-06-2021 End: 11-06-2021 Patient encounter procedure 11/06/2021 Office Visit Primary Care Mirian Greenwood MD [address] [place] [address] [address] [place] [address] [facility] Start: 10-24-2021 Hemoglobin A1c measurement A1C test (Diabetic or Prediabetic) [facility] Start: 10-04-2021 CYSFBPPFUV, Provider : Jaleesa Allan, Status: Pen, Time: 10:00 AM CYSFBPPFUV, Provider: Jaleesa Allan, Status: Pen, Time: 10:00 AM TX-Rjtkykkgva-Xghz ell [address] Work Phone: Start: 10-04-2021 SPIROMETRY, Provider : PULM LAB,PD_DIA_PULMLAB, Status: Pen, Time: 9:45 AM SPIROMETRY, Provider: PULM LAB,PD_DIA_PULMLAB, Status: Pen, Time: 9:45 AM MA-Wqgeyujsyr-Scbh ell [address] Work Phone: Start: 05-04-2021 COVID-19 Vaccine (3 - Booster for Pfizer series) COVID-19 Vaccine (3 - Booster for Pfizer series) [facility] Start: 04-04-2021 COVID-19 Vaccine (3 - Booster for Pfizer series) COVID-19 Vaccine (3 - Booster for Pfizer series) [facility] Start: 03-08-2021 Influenza vaccination Flu vaccine (# 1) [facility] Start: 05-03-2020 Colonoscopy Colonoscopy [facility] Work Phone: Start: 05-03-2020 Endoscopy - Upper GI [facility] Work Phone: Start: 03-31-2020 Ultrasound Liver MG-Ped iatrics-Rain bow [address] Work Phone: Start: 03-30-2020 Colonoscopy Colonoscopy MG-Pediatr ics-Rain bow [address] Work Phone: Start: 03-30-2020 Endoscopy - Upper GI MG -Pediatrics-Rain bow [address] Work Phone: Start: 12-21-2011 Hemoglobin A1c measurement A1C test (Diabetic or Prediabetic) [facility] Start: 12-16-2011 Pneumococcal 0-64 years Vaccine (2 - PCV) Pneumococcal 0-64 years Vaccine (2 - PCV) [facility] Start: 12-16-2011 Pneumococcal Vaccine : Pediatrics (0 to 5 Years) and At-Risk Patients (6 to 64 Years) (2 - PCV) Pneumococcal Vaccine: Pediatrics (0 to 5 Years) and At-Risk Patients (6 to 64 Years) (2 - PCV) [facility] Start: 2006 DTaP/Tdap/Td Vaccine s (1 - Tdap) DTaP/Tdap/Td Vaccines (1 - Tdap) [facility] Start: 2003 DTaP/Tdap/Td vaccine (1 - Tdap) DTaP/Tdap/Td vaccine (1 - Tdap) [facility] Start: 2003 Hepatitis A Vaccines (1 of 2 - Risk 2-dose series) Hepatitis A Vaccines (1 of 2 - Risk 2-dose series) [facility] Start: 2003 Hepatitis B vaccine (1 of 3 - Risk 3-dose series) Hepatitis B vaccine (1 of 3 - Risk 3-dose series) [facility] Start: 2002 Diabetic retinal exam Diabetic retin al exam [facility] Start: 2002 Hepatitis C screening Hepatitis C sc reen [facility] Start: 1999 HIV screening HIV screen [facility] Start: 09-21-1997 Varicella vaccination Varicell a Vaccines (1 of 2 - 2-dose childhood series) [facility] Start: 1996 Depression Screen Depression Screen [facility] Start: 1994 Diabetic foot examination Diabetes: Foot Exam [facility] Start: 1994 Glaucoma screening Diabetes: R etinopathy Screening [facility] Start: 1985 Varicella vaccine (1 of 2 - 2-dose childhood series) Varicella vaccine (1 of 2 - 2-dose childhood series) [facility] Start: 1984 Hepatitis B Vaccines (1 of 3 - 3-dose series) Hepatitis B Vaccines (1 of 3 - 3-dose series) [facility] Start: 1984 Hepatitis C screening Hepatitis C [facility] Start: 1984 HIV screening HIV Screening [facility] Start: 1984 Yearly Adult Physical Yearly Adult P hycal [facility] Bacteria identified in Sputum by Cystic fibrosis respiratory culture [facility] Work Phone: Comment on above: Release Upon Orderin g for 1 Occurrences starting 10/01/2023 Bacteria identified in Unspecified specimen by Respiratory culture Respiratory Culture/Smear Microbiology Routine Cystic fibrosis with pulmonary manifestations (CMS/HCC) 10/01/2023 2:11 PM EDT [facility] Work Phone: End: 10-01-2023 Bronchoscopy study [facility] Work Phone: Comment on above: Once for 1 Occurrenc es starting 10/01/2023 until 10/01/2023 End: 10-01-2023 Continuous Pulse oximetry, In Phase 1 Continuous Pulse oximetry, In Phase 1 Respiratory Care Routine Continuous until discontinued starting 10/01/2023 [facility] Work Phone: Comment on above: Continuous until dis continued starting 10/01/2023 End: 09-18-2023 CT Chest WO contrast [facility] Work Phone: Comment on above: Once for 1 Occurrenc es starting 09/18/2023 until 09/18/2023 End: 10-27-2021 Culture, Blood 1 [facility] Work Phone: Comment on above: One Time for 1 Occur rences starting 10/27/2021 until 10/27/2021 EKG 12 Lead EKG 12 Lead ECG STAT 10/27/2021 7:41 PM EDT [facility] Work Phone: Fungus identified in Unspecified specimen by Culture [facility] Work Phone: Comment on above: Release Upon Orderin g for 1 Occurrences starting 10/01/2023 Glucose [Mass/volume ] in Serum or Plasma POCT Glucose Point of Care Testing - Docked Device Routine As needed (Lab) for 1 Occurrences starting 10/01/2023 [facility] Work Phone: Comment on above: As needed (Lab) for 1 Occurrences starting 10/01/2023 Mycobacterium sp identified in Unspecified specimen by Organism specific culture [facility] Work Phone: Comment on above: Release Upon Orderin g for 1 Occurrences starting 10/01/2023 End: 09-18-2023 [facility] Work Phone: Comment on above: Once for 1 Occurrenc es starting 09/18/2023 until 09/18/2023 ML-Krootntxyy-P ain bow [address] Work Phone: NEGATED: Highlighted row has been ruled out! 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 Phone: VL-Hzafclsohm-Xntuw ll [address] Work Phone: 10-12-2020 Pfizer-BioNTech COVI D-19 Vacc 30 MCG/0.3ML Intramuscular Suspension Kapil Covarrubias EM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 Phone: GQ-Cpfutkymne-Auipq ll [address] Work Phone: 09-09-2019 influenza, seasonal, injectable Cmc 1 [facility] Work Phone: 09-09-2019 influenza, injectabl e, quadrivalent, preservative free; Translations: [Flulaval Quadrivalent 0.5 ML Intramuscular Suspension Prefilled Syringe] Irene Kaiser NO-Mxzhunadnt-Soyjh ow [address] Work Phone: Comment on above: Series: 04-11-2019 influenza, seasonal, injectable Kapil Covarrubias EM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 Phone: RK-Ymuqfekxyg-Florc ll [address] Work Phone: 07-21-2018 influenza, injectabl e, quadrivalent, preservative free; Translations: [Flulaval Quadrivalent 0.5 ML Intramuscular Suspension Prefilled Syringe] Irene Kaiser ZT-Enboggpryg-Kwiul ow [address] Work Phone: Comment on above: Series: 07-21-2018 influenza, seasonal, injectable [address] Work Phone: 06-27-2016 influenza, seasonal, injectable, preservative free; Translations: [Fluvirin 0.5 ML Intramuscular Suspension Prefilled Syringe] Irene Kaiser MG-Sijgoyzvuq-Kdwuv ow [address] Work Phone: Comment on above: Series: 12-15-2010 pneumococcal polysaccharide vaccine, 23 valent Irene Kaiser IU-Ypbdxzxnjr-Bgwzd ow [address] Work Phone: Comment on above: Series: 04-28-2003 influenza virus vacc ine, unspecified formulation Kapil Covarrubias EM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 Phone: GV-Srbvqtlavm-Uibvp ll [address] Work Phone: Comment on above: Series: 04-28-2003 influenza, seasonal, injectable Irene Kaiser UX-Wccxjnljho-Xhhhq ow [address] Work Phone: 04-29-2002 influenza virus vacc ine, unspecified formulation Kapil Covarrubias EM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 2020 Private Health Insurance [id number] 2020 Private Health Insurance [id number] 1984 Unknown [id number]. 173 1984 Unknown [id number]. 173 1984 Unknown [id number] [id number]. 173 1984 Unknown [id number] [id number]. 173 1984 Unknown [id number] [id number]. 173 1984 Unknown [id number] [id number]. 593 1984 Unknown [id number] [id number]. 593 1984 Unknown [id number] [id number]. 1245 1984 Unknown [id number] [id number]. 1245 1984 Unknown [id number] [id number]. 1245 1984 Unknown [id number] [id number]. 1245 1984 Unknown [id number] [id number]. 1245 1984 Unknown [id number] [id number]. 1245 1984 Unknown [id number] [id number]. 1245 1959 Unknown [id number] Social History Date Type Detail Facility Tobacco smoking status NHIS Tobacco smoking consumption unknown [facility] Phone: Start: 1985 Sex Assigned At Not on file [facility] Phone: Start: 10-17-2021 End: 10-01-2023 Exposure to SARS-CoV-2 (event) Not sure [facility] Phone: Exposure to SARS-CoV-2 (event) Yes [facility] Phone: Start: 04-24-2023 Rarely consumes alcohol Rarely consumes alcohol [facility] Start: 07-25-2021 End: 04-24-2023 Tobacco smoking status AZIS Never smoked tobacco [facility] Phone: Start: 07-25-2021 Tobacco use and exposure Smokeless tobacco non-user [facility] Phone: Start: 08-08-2021 History SDOH Financial 5 [facility] Phone: Start: 08-08-2021 History SDOH Food Worry 1 [facility] Phone: Start: 08-08-2021 History SDOH Transport Med 2 [facility] Phone: Start: 04-24-2023 Tobacco use and exposure User of smokeless tobacco [facility] Work Phone: History of tobacco use Chews Tobacco [facility] Work Phone: Start: 04-24-2023 Alcohol intake Current drinke r of alcohol (finding) [facility] Work Phone: Start: 04-24-2023 Tobacco use panel [facility] NEGATED: Highlighted row - - XQ-Wxlugenegf-Wbyhtt w [address] Work Phone: Medical Equipment Procedure Code Equipment Code Equipment Origin al Text Equipment Identifier Dates Accu-Chek FastCl ix Lancet KIT USE DIRECTED. Quantity: 1 Refills: 1 Irene Kaiser MD Start : 30-Jul-2018 Active Start: 07-30-2018 Accu-Chek FastCl ix Lancets use to test blood sugar 6-7 units daily Quantity: 6 Refills: 3 Irene Kaiser MD Start : 30-Jul-2018 Active 102 Unit Box Start: 07-30-2018 Accu-Chek Guide In Vitro Strip test 6-7 times daily Quantity: 6 Refills: 3 Irene Kaiser MD Start : 30-Jul-2018 Active 100 Strip Box Start: 07-30-2018 BD Pen Needle Mi ni U/F 31G X 5 MM USE 4 TO 6 TIMES DAILY Quantity: 2 Refills: 11 Larry Armstrong MD Start : 27-Feb-2017 Active 100 Miscellaneous Box Start: 02-27-2017 BD Pen Needle Na no U/F 32G X 4 MM use 4-6 daily for injections Quantity: 6 Refills: 3 Larry Armstrong MD Start : 20-Jul-2016 Active 100 Unit Box Start: 07-20-2016 Accu-Chek FastCl ix Lancet KIT USE DIRECTED. Quantity: 1 Refills: 1 Irene Kaiser MD Start : 30-Jul-2018 Active Start: 07-30-2018 Accu-Chek FastCl ix Lancets use to test blood sugar 6-7 units daily Quantity: 6 Refills: 3 Irene Kaiser MD Start : 30-Jul-2018 Active 102 Unit Box Start: 07-30-2018 Accu-Chek Guide In Vitro Strip test 6-7 times daily Quantity: 6 Refills: 3 Irene Kaiser MD Start : 30-Jul-2018 Active 100 Strip Box Start: 07-30-2018 BD Pen Needle Mi ni U/F 31G X 5 MM USE 4 TO 6 TIMES DAILY Quantity: 2 Refills: 11 Larry Armstrong MD Start : 27-Feb-2017 Active 100 Miscellaneous Box Start: 02-27-2017 BD Pen Needle Na no U/F 32G X 4 MM use 4-6 daily for injections Quantity: 6 Refills: 3 Larry Armstrong MD Start : 20-Jul-2016 Active 100 Unit Box Start: 07-20-2016 Accu-Chek FastCl ix Lancet KIT USE DIRECTED. Quantity: 1 Refills: 1 Irene Kaiser MD Start : 30-Jul-2018 Active Start: 07-30-2018 Accu-Chek FastCl ix Lancets use to test blood sugar 6-7 units daily Quantity: 6 Refills: 3 Irene Kaiser MD Start : 30-Jul-2018 Active 102 Unit Box Start: 07-30-2018 Accu-Chek Guide In Vitro Strip test 6-7 times daily Quantity: 6 Refills: 3 Irene Kaiser MD Start : 30-Jul-2018 Active 100 Strip Box Start: 07-30-2018 BD Pen Needle Mi ni U/F 31G X 5 MM USE 4 TO 6 TIMES DAILY Quantity: 2 Refills: 11 Larry Armstrong MD Start : 27-Feb-2017 Active 100 Miscellaneous Box Start: 02-27-2017 BD Pen Needle Na no U/F 32G X 4 MM use 4-6 daily for injections Quantity: 6 Refills: 3 Larry Armstrong MD Start : 20-Jul-2016 Active 100 Unit Box Start: 07-20-2016 Accu-Chek FastCl ix Lancet KIT USE DIRECTED. Quantity: 1 Refills: 1 Irene Kaiser MD Start : 30-Jul-2018 Active Start: 07-30-2018 Accu-Chek FastCl ix Lancets use to test blood sugar 6-7 units daily Quantity: 6 Refills: 3 Irene Kaiser MD Start : 30-Jul-2018 Active 102 Unit Box Start: 07-30-2018 Accu-Chek Guide In Vitro Strip test 6-7 times daily Quantity: 6 Refills: 3 Irene Kaiser MD Start : 30-Jul-2018 Active 100 Strip Box Start: 07-30-2018 BD Pen Needle Mi ni U/F 31G X 5 MM USE 4 TO 6 TIMES DAILY Quantity: 2 Refills: 11 Larry Armstrong MD Start : 27-Feb-2017 Active 100 Miscellaneous Box Start: 02-27-2017 BD Pen Needle Na no U/F 32G X 4 MM use 4-6 daily for injections Quantity: 6 Refills: 3 Larry Armstrong MD Start : 20-Jul-2016 Active 100 Unit Box Start: 07-20-2016 Accu-Chek FastCl ix Lancet KIT USE DIRECTED. Quantity: 1 Refills: 1 Irene Kaiser MD Start : 30-Jul-2018 Active Start: 07-30-2018 Accu-Chek FastCl ix Lancets use to test blood sugar 6-7 units daily Quantity: 6 Refills: 3 Irene Kaiser MD Start : 30-Jul-2018 Active 102 Unit Box Start: 07-30-2018 Accu-Chek Guide In Vitro Strip test 6-7 times daily Quantity: 6 Refills: 3 Irene Kaiser MD Start : 30-Jul-2018 Active 100 Strip Box Start: 07-30-2018 BD Pen Needle Mi ni U/F 31G X 5 MM USE 4 TO 6 TIMES DAILY Quantity: 2 Refills: 11 Larry Armstrong MD Start : 27-Feb-2017 Active 100 Miscellaneous Box Start: 02-27-2017 BD Pen Needle Na no U/F 32G X 4 MM use 4-6 daily for injections Quantity: 6 Refills: 3 Larry Armstrong MD Start : 20-Jul-2016 Active 100 Unit Box Start: 07-20-2016 Accu-Chek FastCl ix Lancet KIT USE DIRECTED. Quantity: 1 Refills: 1 Irene Kaiser MD Start : 30-Jul-2018 Active Start: 07-30-2018 Accu-Chek FastCl ix Lancets use to test blood sugar 6-7 units daily Quantity: 6 Refills: 3 Irene Kaiser MD Start : 30-Jul-2018 Active 102 Unit Box Start: 07-30-2018 Accu-Chek Guide In Vitro Strip test 6-7 times daily Quantity: 6 Refills: 3 Irene Kaiser MD Start : 30-Jul-2018 Active 100 Strip Box Start: 07-30-2018 BD Pen Needle Mi ni U/F 31G X 5 MM USE 4 TO 6 TIMES DAILY Quantity: 2 Refills: 11 Larry Armstrong MD Start : 27-Feb-2017 Active 100 Miscellaneous Box Start: 02-27-2017 BD Pen Needle Na no U/F 32G X 4 MM use 4-6 daily for injections Quantity: 6 Refills: 3 Larry Armstrong MD Start : 20-Jul-2016 Active 100 Unit Box Start: 07-20-2016 Accu-Chek FastCl ix Lancet KIT USE DIRECTED. Quantity: 1 Refills: 1 Irene Kaiser MD Start : 30-Jul-2018 Active Start: 07-30-2018 Accu-Chek FastCl ix Lancets use to test blood sugar 6-7 units daily Quantity: 6 Refills: 3 Irene Kaiser MD Start : 30-Jul-2018 Active 102 Unit Box Start: 07-30-2018 Accu-Chek Guide In Vitro Strip test 6-7 times daily Quantity: 6 Refills: 3 Irene Kaiser MD Start : 30-Jul-2018 Active 100 Strip Box Start: 07-30-2018 BD Pen Needle Mi ni U/F 31G X 5 MM USE 4 TO 6 TIMES DAILY Quantity: 2 Refills: 11 Larry Armstrong MD Start : 27-Feb-2017 Active 100 Miscellaneous Box Start: 02-27-2017 BD Pen Needle Na no U/F 32G X 4 MM use 4-6 daily for injections Quantity: 6 Refills: 3 Larry Armstrong MD Start : 20-Jul-2016 Active 100 Unit Box Start: 07-20-2016 Accu-Chek FastCl ix Lancet KIT USE DIRECTED. Quantity: 1 Refills: 1 Irene Kaiser MD Start : 30-Jul-2018 Active Start: 07-30-2018 Accu-Chek FastCl ix Lancets use to test blood sugar 6-7 units daily Quantity: 6 Refills: 3 Irene Kaiser MD Start : 30-Jul-2018 Active 102 Unit Box Start: 07-30-2018 Accu-Chek Guide In Vitro Strip test 6-7 times daily Quantity: 6 Refills: 3 Irene Kaiser MD Start : 30-Jul-2018 Active 100 Strip Box Start: 07-30-2018 BD Pen Needle Mi ni U/F 31G X 5 MM USE 4 TO 6 TIMES DAILY Quantity: 2 Refills: 11 Larry Armstrong MD Start : 27-Feb-2017 Active 100 Miscellaneous Box Start: 02-27-2017 BD Pen Needle Na no U/F 32G X 4 MM use 4-6 daily for injections Quantity: 6 Refills: 3 Larry Armstrong MD Start : 20-Jul-2016 Active 100 Unit Box Start: 07-20-2016 Accu-Chek FastCl ix Lancet KIT USE DIRECTED. Quantity: 1 Refills: 1 Irene Kaiser MD Start : 30-Jul-2018 Active Start: 07-30-2018 Accu-Chek FastCl ix Lancets use to test blood sugar 6-7 units daily Quantity: 6 Refills: 3 Irene Kaiser MD Start : 30-Jul-2018 Active 102 Unit Box Start: 07-30-2018 Accu-Chek Guide In Vitro Strip test 6-7 times daily Quantity: 6 Refills: 3 Irene Kaiser MD Start : 30-Jul-2018 Active 100 Strip Box Start: 07-30-2018 BD Pen Needle Mi ni U/F 31G X 5 MM USE 4 TO 6 TIMES DAILY Quantity: 2 Refills: Larry Nevarez MD Start : 27-Feb-2017 Active 100 Miscellaneous Box Start: 02-27-2017 BD Pen Needle Na no U/F 32G X 4 MM use 4-6 daily for injections Quantity: 6 Refills: 3 Larry Armstrong MD Start : 20-Jul-2016 Active 100 Unit Box Start: 07-20-2016 Accu-Chek FastCl ix Lancet KIT USE DIRECTED. Quantity: 1 Refills: 1 Irene aKiser MD Start : 30-Jul-2018 Active Start: 07-30-2018 Accu-Chek FastCl ix Lancets use to test blood sugar 6-7 units daily Quantity: 6 Refills: 3 Irene Kaiser MD Start : 30-Jul-2018 Active 102 Unit Box Start: 07-30-2018 Accu-Chek Guide In Vitro Strip test 6-7 times daily Quantity: 6 Refills: 3 Irene Kaiser MD Start : 30-Jul-2018 Active 100 Strip Box Start: 07-30-2018 BD Pen Needle Mi ni U/F 31G X 5 MM USE 4 TO 6 TIMES DAILY Quantity: 2 Refills: Larry Nevarez MD Start : 27-Feb-2017 Active 100 Miscellaneous Box Start: 02-27-2017 BD Pen Needle Na no U/F 32G X 4 MM use 4-6 daily for injections Quantity: 6 Refills: 3 Larry Armstrong MD Start : 20-Jul-2016 Active 100 Unit Box Start: 07-20-2016 Accu-Chek FastCl ix Lancet KIT USE DIRECTED. Quantity: 1 Refills: 1 Irene Kaiser MD Start : 30-Jul-2018 Active Start: 07-30-2018 Accu-Chek FastCl ix Lancets use to test blood sugar 6-7 units daily Quantity: 6 Refills: 3 Irene Kaiser MD Start : 30-Jul-2018 Active 102 Unit Box Start: 07-30-2018 Accu-Chek Guide In Vitro Strip test 6-7 times daily Quantity: 6 Refills: 3 Irene Kaiser MD Start : 30-Jul-2018 Active 100 Strip Box Start: 07-30-2018 BD Pen Needle Mi ni U/F 31G X 5 MM USE 4 TO 6 TIMES DAILY Quantity: 2 Refills: 11 Larry Armstrong MD Start : 27-Feb-2017 Active 100 Miscellaneous Box Start: 02-27-2017 BD Pen Needle Na no U/F 32G X 4 MM use 4-6 daily for injections Quantity: 6 Refills: 3 Larry Armstrong MD Start : 20-Jul-2016 Active 100 Unit Box Start: 07-20-2016 Accu-Chek FastCl ix Lancet KIT USE DIRECTED. Quantity: 1 Refills: 1 Irene Kaiser MD Start : 30-Jul-2018 Active Start: 07-30-2018 Accu-Chek FastCl ix Lancets use to test blood sugar 6-7 units daily Quantity: 6 Refills: 3 Irene Kaiser MD Start : 30-Jul-2018 Active 102 Unit Box Start: 07-30-2018 Accu-Chek Guide In Vitro Strip test 6-7 times daily Quantity: 6 Refills: 3 Irene Kaiser MD Start : 30-Jul-2018 Active 100 Strip Box Start: 07-30-2018 BD Pen Needle Mi ni U/F 31G X 5 MM USE 4 TO 6 TIMES DAILY Quantity: 2 Refills: 11 Larry Armstrong MD Start : 27-Feb-2017 Active 100 Miscellaneous Box Start: 02-27-2017 BD Pen Needle Na no U/F 32G X 4 MM use 4-6 daily for injections Quantity: 6 Refills: 3 Larry Armstrong MD Start : 20-Jul-2016 Active 100 Unit Box Start: 07-20-2016 Accu-Chek FastCl ix Lancet KIT USE DIRECTED. Quantity: 1 Refills: 1 Irene Kaiser MD Start : 30-Jul-2018 Active Start: 07-30-2018 Accu-Chek FastCl ix Lancets use to test blood sugar 6-7 units daily Quantity: 6 Refills: 3 Irene Kaiser MD Start : 30-Jul-2018 Active 102 Unit Box Start: 07-30-2018 Accu-Chek Guide In Vitro Strip test 6-7 times daily Quantity: 6 Refills: 3 Irene Kaiser MD Start : 30-Jul-2018 Active 100 Strip Box Start: 07-30-2018 BD Pen Needle Mi ni U/F 31G X 5 MM USE 4 TO 6 TIMES DAILY Quantity: 2 Refills: 11 Larry Armstrong MD Start : 27-Feb-2017 Active 100 Miscellaneous Box Start: 02-27-2017 BD Pen Needle Na no U/F 32G X 4 MM use 4-6 daily for injections Quantity: 6 Refills: 3 Larry Armstrong MD Start : 20-Jul-2016 Active 100 Unit Box Start: 07-20-2016 Accu-Chek FastCl ix Lancet KIT USE DIRECTED. Quantity: 1 Refills: 1 Irene Kaiser MD Start : 30-Jul-2018 Active Start: 07-30-2018 Accu-Chek FastCl ix Lancets use to test blood sugar 6-7 units daily Quantity: 6 Refills: 3 Irene Kaiser MD Start : 30-Jul-2018 Active 102 Unit Box Start: 07-30-2018 Accu-Chek Guide In Vitro Strip test 6-7 times daily Quantity: 6 Refills: 3 Irene Kaiser MD Start : 30-Jul-2018 Active 100 Strip Box Start: 07-30-2018 BD Pen Needle Mi ni U/F 31G X 5 MM USE 4 TO 6 TIMES DAILY Quantity: 2 Refills: 11 Larry Armstrong MD Start : 27-Feb-2017 Active 100 Miscellaneous Box Start: 02-27-2017 BD Pen Needle Na no U/F 32G X 4 MM use 4-6 daily for injections Quantity: 6 Refills: 3 Larry Armstrong MD Start : 20-Jul-2016 Active 100 Unit Box Start: 07-20-2016 Accu-Chek FastCl ix Lancet KIT USE DIRECTED. Quantity: 1 Refills: 1 Irene Kaiser MD Start : 30-Jul-2018 Active Start: 07-30-2018 Accu-Chek FastCl ix Lancets use to test blood sugar 6-7 units daily Quantity: 6 Refills: 3 Irene Kaiser MD Start : 30-Jul-2018 Active 102 Unit Box Start: 07-30-2018 Accu-Chek Guide In Vitro Strip test 6-7 times daily Quantity: 6 Refills: 3 Irene Kaiser MD Start : 30-Jul-2018 Active 100 Strip Box Start: 07-30-2018 BD Pen Needle Mi ni U/F 31G X 5 MM USE 4 TO 6 TIMES DAILY Quantity: 2 Refills: 11 Laryr Armstrong MD Start : 27-Feb-2017 Active 100 Miscellaneous Box Start: 02-27-2017 BD Pen Needle Na no U/F 32G X 4 MM use 4-6 daily for injections Quantity: 6 Refills: 3 Larry Armstrong MD Start : 20-Jul-2016 Active 100 Unit Box Start: 07-20-2016 test 6-7 times daily [id number] Star t: 07-30-2018 Use to inject in sulin 4-6 times daily [id number] Start: 09-19-2023 Functional Status Date Assessment Result Facility NEGATED: Highlighted row Functional performance Functional status health issues are not documented Disease EK-Ivnvvhsgfp-Zqdnt [facility] [address] Work Phone: Mental Status Date Assessment Result Facility NEGATED: Highlighted row Cognitive function [Interpretation] Cognitive status health issues are not documented Disease JQ-Azvbhqoren-Qlkns ow [address] Work Phone: Clinical Notes 10-17-2020 to 10-01-2023 Jonathan Weiss MD - 10/01/2023 1:30 PM Stephane Weiss MD - 10/01/2023 1:30 PM Stephane Weiss MD - 10/01/2023 1:30 PM EDTInstructionsAttachments Note Date & Type Note Facility 10-01-2023 Attending History and physical note H&P reviewed. The patient was examined and there are no changes to the H&P. Source Note - Carmelita Waters MD - 09/18/2023 11:00 AM EDT Images from the original note were not included. Stanford Ceja M.D. [facility] Background: Bravo is a 38-year-old male with history of CF on Trikafta (N/dF508;EST1=089%; chronic colonization of MSSA (2021), PSA, (2018). Mycobacterium (2019)), CFRD, pancreatic insufficiency, SVT, and cirrhosis (follows with Dr. Briceño). He was last seen by myself on 04/24/23 with a CF exacerbation requiring admission to [facility] 06/05/23. HPI (09/20/2023): Bravo is here with his mother. He reports having worsening respiratory symptoms, decreased exercise tolerance, weight loss, and increased sputum production (no blood). He has had associated night sweats. He reports being off of Trikafta since May due to issues with insurance with a job change as a told that he may care. He likes his job and is on his feet most of the day which is his exercise. He does feel like he moves slower than most people his own age. He does feel like his bowels have slowed up a bit, but when I go I go . He is in no pain or discomfort but just has a change in bowel habits. He does have occasional sharp epigastric pain that causes him to hunch over which is related to eating greasy or foods without taking extra pancreatic enzymes. His sinus congestion is at his baseline. He reports he is sleeping terribly due to increase in coughing which is a very dry cough at night and on occasion productive. 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 Chewing tobacco Current Use of Health Management Strategies: Respiratory Interventions Albuterol: Two times per day Pulmozyme: Does not use Hypertonic saline: 7% in the past Does not use HFCWO (percussive vest): [place] ([place]) Other - when getting chest colds 1-2 x/year; (+) friend coughing numerous times/day Oscillatory PEP: Does not use Exercise: No Regular Exercise currently; was doing weight-lifting and running/walking last consistently 3 years ago LTE antagonist: No Azithromycin: Does not use Aztreonam lysine ([place]): Does not use Tobramycin Other: Does not use previously used - has had hx of dizziness with medication Colistin: Does not use previously used Meropenem (inhaled): Does not use ICS: Does not use ICS/LABA: Budesonide-formoterol (Symbicort HFA) morning at night after albuterol LAMA: No CFTR modulator: Aoiibwahdhc-Ckufllxsqg-Vjrqexbo r (Trikafta) Full-dose (2 orange tablets in AM, 1 blue tablet in PM) - last used in May Oxygen: Does not use Digestive Health Interventions Acid-suppressing medication?: No Using CF vitamins?: No Taking pancreatic enzymes?: Yes 3 tabs of ZenPEP with meals and 2 tabs with snacks Any diarrhea?: No Any steatorrhea?: No Any constipation?: Yes - off and on Using laxatives?: No - will use apple juice if constipated; has not been admitted for JUDIE Feeding tube?: No Supplemental enteral nutrition?: Yes - Ghost Protein drink from [facility] - 2 shakes/day + [facility] Mass Tam - 1/ day at night Pulmonary Function Test Results 09/18/23: FEV1= 87.8% (5.27L) 04/24/23: NOG3=020% (decreased from 112% last year) Current Medications Current Outpatient Medications Medication Instructions albuterol 90 mcg/actuation inhaler 2 puffs, inhalation, Every 4 hours PRN albuterol 2.5 mg, nebulization, Every 4 hours PRN Baqsimi 3 mg/actuation spray,non-aerosol Lubec 3 mg nasally as needed for severe hypoglycemia blood sugar diagnostic (Accu-Chek Guide test strips) strip test 6-7 times daily budesonide-formoteroL (Symbicort) 80-4.5 mcg/actuation inhaler 2 puffs, inhalation, 2 times daily RT busPIRone (BUSPAR) 5 mg, oral, 2 times daily cholecalciferol (VITAMIN D-3) 5,000 Units, oral, Daily zsfsniivzvn-vyzamwtxox-zgyatay (Trikafta) 100-50-75 mg tablet take 2 Tabs (elexacaftor 100mg/tezacaftor 50mg/ivacaftor 75mg) PO Q AM and 1 Tab (ivacaftor 150mg) PO Q Evening with fatty foods. fluticasone (Flonase) 50 mcg/actuation nasal spray 2 sprays, Each Nostril, Daily, Shake gently. Before first use, prime pump. After use, clean tip and replace cap. SignStorey Crow 3 Sensor device Change sensor every 14 days for glucose monitoring glucagon (GLUCAGEN) 1 mg insulin glargine (Basaglar KwikPen U-100 Insulin) 100 unit/mL (3 mL) pen Inject up to 50 units daily insulin lispro (HumaLOG U-100 Insulin) 100 unit/mL injection Use up to 50 units daily as directed vkidcz-pslrmtmr-dlwdnkr (Zenpep) 25,000-79,000- 105,000 unit capsule 3 capsules, oral, 3 times daily with meals, Take 5-7 caps with meals and 3 caps with snacks mirtazapine (REMERON) 15 mg, oral, Nightly pen needle, diabetic 32 gauge x 5/32 needle Use to inject insulin 4-6 times daily sodium chloride 7 % solution for nebulization nebulizer solution Inhale 1 vial via nebulizer twice a day vit A-vit D3-vit E-vit K (DEKAs Essential) 2,000 unit-2000 unit-1,000 mcg capsule capsule 1,000 mcg, oral, Daily Physical Examination Vitals: 09/18/23 1107 BP: 133/90 Pulse: 103 Resp: 18 Temp: 36.5 C (97.7 F) SpO2: 97% General: ambulated independently; no acute distress; thin, chronically ill appearing HEENT: normocephalic; anicteric sclerae; conjunctivae not injected; nasal mucosa was unremarkable; oropharynx was clear without evidence of thrush; dentition was good; TM's clear bilaterally, +clear rhinorrhea; ++Temporal wasting Neck: supple; no lymphadenopathy Chest: rales that clear with coughing otherwise clear to auscultation bilaterally Cardiac: regular rhythm; no gallop or murmur. Abdomen: soft; non-tender; non-distended; no hepatosplenomegaly. Extremities: no leg edema; (+) digital clubbing; 2+ pulses Psychiatric: did not appear depressed or anxious. Metabolic Parameters Sodium Date/Time Value Ref Range Status 04/24/2023 02:39 PM 131 (L) 136 - 145 mmol/L Final Potassium Date/Time Value Ref Range Status 04/24/2023 02:39 PM 4.8 3.5 - 5.3 mmol/L Final Chloride Date/Time Value Ref Range Status 04/24/2023 02:39 PM 95 (L) 98 - 107 mmol/L Final Bicarbonate Date/Time Value Ref Range Status 04/24/2023 02:39 PM 29 21 - 32 mmol/L Final Anion Gap Date/Time Value Ref Range Status 04/24/2023 02:39 PM 12 10 - 20 mmol/L Final Urea Nitrogen Date/Time Value Ref Range Status 04/24/2023 02:39 PM 15 6 - 23 mg/dL Final Creatinine Date/Time Value Ref Range Status 04/24/2023 02:39 PM 0.88 0.50 - 1.30 mg/dL Final GFR MALE Date/Time Value Ref Range Status 10/04/2021 11:09 AM >90 >90 mL/min/1.73m2 Final Comment: CALCULATIONS OF ESTIMATED GFR ARE PERFORMED USING THE 2020 CKD-EPI STUDY REFIT EQUATION WITHOUT THE RACE VARIABLE FOR THE IDMS-TRACEABLE CREATININE METHODS. https://jasn.asnjournals.org/co ntent/early//ASN.2020 684567 Glucose Date/Time Value Ref Range Status 04/24/2023 02:39 PM 591 (HH) 74 - 99 mg/dL Final Calcium Date/Time Value Ref Range Status 04/24/2023 02:39 PM 9.2 8.6 - 10.6 mg/dL Final Phosphorus Date/Time Value Ref Range Status 04/24/2023 02:39 PM 4.3 2.5 - 4.9 mg/dL Final Comment: The performance characteristics of phosphorus testing in heparinized plasma have been validated by the individual laboratory site where testing is performed. Testing on heparinized plasma is not approved by the FDA; however, such approval is not necessary. Hematologic Parameters WBC Date/Time Value Ref Range Status 04/24/2023 02:39 PM 9.5 4.4 - 11.3 x10*3/uL Final Neutrophils Absolute Date/Time Value Ref Range Status 04/24/2023 02:39 PM 5.88 1.20 - 7.70 x10*3/uL Final Comment: Percent differential counts (%) should be interpreted in the context of the absolute cell counts (cells/uL). Neutrophils % Date/Time Value Ref Range Status 04/24/2023 02:39 PM 62.1 40.0 - 80.0 % Final Lymphocytes % Date/Time Value Ref Range Status 04/24/2023 02:39 PM 28.1 13.0 - 44.0 % Final Monocytes % Date/Time Value Ref Range Status 04/24/2023 02:39 PM 5.7 2.0 - 10.0 % Final Basophils % Date/Time Value Ref Range Status 04/24/2023 02:39 PM 0.9 0.0 - 2.0 % Final Eosinophils Absolute Date/Time Value Ref Range Status 04/24/2023 02:39 PM 0.27 0.00 - 0.70 x10*3/uL Final Eosinophils % Date/Time Value Ref Range Status 04/24/2023 02:39 PM 2.8 0.0 - 6.0 % Final Hemoglobin Date/Time Value Ref Range Status 04/24/2023 02:39 PM 14.3 13.5 - 17.5 g/dL Final Hematocrit Date/Time Value Ref Range Status 04/24/2023 02:39 PM 44.0 41.0 - 52.0 % Final RBC Date/Time Value Ref Range Status 04/24/2023 02:39 PM 5.16 4.50 - 5.90 x10*6/uL Final MCV Date/Time Value Ref Range Status 04/24/2023 02:39 PM 85 80 - 100 fL Final MCHC Date/Time Value Ref Range Status 04/24/2023 02:39 PM 32.5 32.0 - 36.0 g/dL Final Platelets Date/Time Value Ref Range Status 04/24/2023 02:39 PM 362 150 - 450 x10*3/uL Final Fat-Soluble Vitamin Levels Vitamin D, 25-Hydroxy, Total Date/Time Value Ref Range Status 04/24/2023 02:39 PM 14 (L) 30 - 100 ng/mL Final Vitamin A (Retinol) Date/Time Value Ref Range Status 04/24/2023 02:39 PM 0.41 0.30 - 1.20 mg/L Final Vitamin A, Interpretation Date/Time Value Ref Range Status 04/24/2023 02:39 PM Normal Final Comment: This test was developed and its performance characteristics determined by [facility]. It has not been cleared or approved by the US Food and Drug Administration. This test was performed in a CLIA certified laboratory and is intended for clinical purposes. Performed By: [facility] [address] [place] [address] Panel Coverer: Chiki Valencia MD, PhD CLIA Number: [id number] Vitamin E (Alpha-Tocopherol) Date/Time Value Ref Range Status 04/24/2023 02:39 PM 2.9 (L) 5.5 - 18.0 mg/L Final Comment: This test was developed and its performance characteristics determined by [facility]. It has not been cleared or approved by the US Food and Drug Administration. This test was performed in a CLIA certified laboratory and is intended for clinical purposes. Vitamin E (Gamma-Tocopherol) Date/Time Value Ref Range Status 04/24/2023 02:39 PM 0.7 0.0 - 6.0 mg/L Final Comment: Performed By: [facility] [address] [place] [address] Panel Coverer: Chiki Valencia MD, PhD CLIA Number: [id number] LFT and Associated Parameters AST Date/Time Value Ref Range Status 04/24/2023 02:39 PM 42 (H) 9 - 39 U/L Final ALT Date/Time Value Ref Range Status 04/24/2023 02:39 PM 60 (H) 10 - 52 U/L Final Comment: Patients treated with Sulfasalazine may generate falsely decreased results for ALT. Alkaline Phosphatase Date/Time Value Ref Range Status 04/24/2023 02:39 PM 247 (H) 33 - 120 U/L Final Bilirubin, Total Date/Time Value Ref Range Status 04/24/2023 02:39 PM 0.5 0.0 - 1.2 mg/dL Final Bilirubin, Direct Date/Time Value Ref Range Status 04/24/2023 02:39 PM 0.1 0.0 - 0.3 mg/dL Final GGT Date/Time Value Ref Range Status 04/24/2023 02:39 PM 187 (H) 5 - 64 U/L Final Albumin Date/Time Value Ref Range Status 04/24/2023 02:39 PM 4.0 3.4 - 5.0 g/dL Final Total Protein Date/Time Value Ref Range Status 04/24/2023 02:39 PM 7.4 6.4 - 8.2 g/dL Final Coagulation Parameters Protime Date/Time Value Ref Range Status 10/04/2021 11:09 AM 11.8 9.8 - 13.4 sec Final INR Date/Time Value Ref Range Status 10/04/2021 11:09 AM 1.0 0.9 - 1.1 Final Diabetes Laboratory Tests POC HEMOGLOBIN A1c Date/Time Value Ref Range Status 09/19/2023 02:49 PM 10.0 (A) 4.2 - 6.5 % Final Albumin/Creatine Ratio Date/Time Value Ref Range Status 04/24/2023 10:19 AM 43.7 (H) <30.0 ug/mg Creat Final Immunology Laboratory Tests IgE Date/Time Value Ref Range Status 04/24/2023 02:39 PM 14 0 - 214 IU/mL Final DEXA Scan 10/10/2021: DEXA Scan Normal Chest Radiograph CHEST 2 VIEW 10/04/2021 Narrative Patient Name: BRAVO ALBRECHT STUDY: TH CHEST 2 VIEW PA AND LAT; 10/04/2021 1:06 pm INDICATION: CF E84.9: Cystic fibrosis. COMPARISON: 07/23/2018. ACCESSION NUMBER(S): [id number] ORDERING CLINICIAN: JALEESA ALLAN FINDINGS: CARDIOMEDIASTINAL SILHOUETTE: Cardiomediastinal silhouette is normal in size and configuration. LUNGS: There is upper lobe peribronchial thickening with right upper lobe bronchiectatic changes. There is no acute airspace disease when compared to a study of 05/23/2019. Slight interval improvement in peribronchial thickening when compared to prior studies. ABDOMEN: No remarkable upper abdominal findings. BONES: No acute osseous changes. Impression 1. There is no acute airspace disease. Diffuse peribronchial thickening and upper lobe bronchiectatic changes consistent with history of cystic fibrosis. No acute airspace disease. CF Sputum Culture 2021 - MSSA 2019 - Rapid grower Mycobacterium Problem List Items Addressed This Visit Anxiety - Primary Relevant Medications busPIRone (Buspar) 5 mg tablet Cystic fibrosis with pulmonary manifestations (CMS/HCC) Relevant Medications budesonide-formoteroL (Symbicort) 80-4.5 mcg/actuation inhaler cholecalciferol (Vitamin D-3) 5,000 Units tablet vit A-vit D3-vit E-vit K (DEKAs Essential) 2,000 unit-2000 unit-1,000 mcg capsule capsule albuterol 90 mcg/actuation inhaler Other Visit Diagnoses Cystic fibrosis ([facility]/HCC) Relevant Medications gffqyqbynug-lgpfrpfqmh-ikxotiq (Trikafta) 100-50-75 mg tablet fluticasone (Flonase) 50 mcg/actuation nasal spray Other Relevant Orders AFB Culture/Smear Fungal Culture/Smear (Completed) Respiratory Culture, Cystic Fibrosis (Completed) Rhinosinusitis Relevant Medications busPIRone (Buspar) 5 mg tablet Bravo is a 37 year old with CF (MSSA, Mycobacterium, last PSA 2017) here for routine follow-up. His health is declining with weightloss, decrease in FEV1 without exacerbation (FEV1=88% off Trikafta). CT Chest obtained in clinic for concern of NTM and imaging consistent with MAC vs fungal disease and after discussion Bravo is agreeable to bronchoscopy given lack of prior Mycobacterial speciation. He also met with endocrinology today. Discussed need to follow-up with GI given cirrhosis + colonic polyp - given the number of tings to get back on track goal is to have this completed by the end of the year. Detailed plan as below. > Cystic Fibrosis without exacerbation (N/dF508;UJF4=834->88% today) - Modulator: START Trikafta - Bronchodilators: Albuterol, Symbicort - HTS: not using - Dornase: defer for now as re-initiating airway clearance - Inhaled ABX: none - Airway Clearance: Vest Sick Plan: Bactrim 1 DS tab bid x 14 days Health Care Maintenance: - PFT completed today - - Annual labs + HbA1C today -- AFB today, Fungal, CF Cultures/steffanie - Last CXR - 09/2021 - Lung CT Scan 09/17 - my read shows numerous scattered tree and bud opacities with bronchiectasis c/w CF diagnosis with scattered mucus - DEXA Scan - 09/2021 - Colon Ca Screening - last colonoscopy 2019 with tubular adenoma - follow-up with GI; anticipate repeat colonoscopy - CFRD- HbA1C =10 - Transplant - discussed, pt reported he would not be interested, mother in room reports he would be; he is far too well at this point for consideration - knows this is a yearly conversation > Hx NTM, Rapid Grower (2019) - Repeat Sputum - culture provided today - Weight loss + intermittent night sweats raises concern - Bronchoscopy to be scheduled with myself > CFRD - Seen by endocrinology today > Exocrine Pancreatic insufficiency - Seen by RD today - Continue Enzymes + at work - Enzymes refilled > Cirrhosis - Follow-up with Dr. Briceño with GI > Smoking Cessation - Counseling provided >Vaccines - UTD on flu vaccine - COVID vaccine recommended I spent a total of 63 minutes with this encounter. Follow-up in 3 months Carmelita Waters MD 09/18/2023 [facility] Work Phone: 10-01-2023 History and physical note H&P reviewed. The patient was examined and there are no changes to the H&P. Source Note - Carmelita Waters MD - 09/18/2023 11:00 AM EDT Images from the original note were not included. Stanford Ceja M.D. [facility] Background: Bravo is a 38-year-old male with history of CF on Trikafta (N/dF508;QLJ4=001%; chronic colonization of MSSA (2021), PSA, (2018). Mycobacterium (2019)), CFRD, pancreatic insufficiency, SVT, and cirrhosis (follows with Dr. Briceño). He was last seen by myself on 04/24/23 with a CF exacerbation requiring admission to [facility] 06/05/23. HPI (09/20/2023): Bravo is here with his mother. He reports having worsening respiratory symptoms, decreased exercise tolerance, weight loss, and increased sputum production (no blood). He has had associated night sweats. He reports being off of Trikafta since May due to issues with insurance with a job change as a told that he may care. He likes his job and is on his feet most of the day which is his exercise. He does feel like he moves slower than most people his own age. He does feel like his bowels have slowed up a bit, but when I go I go . He is in no pain or discomfort but just has a change in bowel habits. He does have occasional sharp epigastric pain that causes him to hunch over which is related to eating greasy or foods without taking extra pancreatic enzymes. His sinus congestion is at his baseline. He reports he is sleeping terribly due to increase in coughing which is a very dry cough at night and on occasion productive. 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 Chewing tobacco Current Use of Health Management Strategies: Respiratory Interventions Albuterol: Two times per day Pulmozyme: Does not use Hypertonic saline: 7% in the past Does not use HFCWO (percussive vest): [place] ([place]) Other - when getting chest colds 1-2 x/year; (+) friend coughing numerous times/day Oscillatory PEP: Does not use Exercise: No Regular Exercise currently; was doing weight-lifting and running/walking last consistently 3 years ago LTE antagonist: No Azithromycin: Does not use Aztreonam lysine ([place]): Does not use Tobramycin Other: Does not use previously used - has had hx of dizziness with medication Colistin: Does not use previously used Meropenem (inhaled): Does not use ICS: Does not use ICS/LABA: Budesonide-formoterol (Symbicort HFA) morning at night after albuterol LAMA: No CFTR modulator: Sanaknkffpb-Kayviiqnmh-Chkzfhgq r (Trikafta) Full-dose (2 orange tablets in AM, 1 blue tablet in PM) - last used in May Oxygen: Does not use Digestive Health Interventions Acid-suppressing medication?: No Using CF vitamins?: No Taking pancreatic enzymes?: Yes 3 tabs of ZenPEP with meals and 2 tabs with snacks Any diarrhea?: No Any steatorrhea?: No Any constipation?: Yes - off and on Using laxatives?: No - will use apple juice if constipated; has not been admitted for JUDIE Feeding tube?: No Supplemental enteral nutrition?: Yes - Ghost Protein drink from [facility] - 2 shakes/day + [facility] Mass Tam - 1/ day at night Pulmonary Function Test Results 09/18/23: FEV1= 87.8% (5.27L) 04/24/23: DBZ7=209% (decreased from 112% last year) Current Medications Current Outpatient Medications Medication Instructions albuterol 90 mcg/actuation inhaler 2 puffs, inhalation, Every 4 hours PRN albuterol 2.5 mg, nebulization, Every 4 hours PRN Baqsimi 3 mg/actuation spray,non-aerosol Lubec 3 mg nasally as needed for severe hypoglycemia blood sugar diagnostic (Accu-Chek Guide test strips) strip test 6-7 times daily budesonide-formoteroL (Symbicort) 80-4.5 mcg/actuation inhaler 2 puffs, inhalation, 2 times daily RT busPIRone (BUSPAR) 5 mg, oral, 2 times daily cholecalciferol (VITAMIN D-3) 5,000 Units, oral, Daily lzbecejnnld-jwcwduoqja-ihfpeao (Trikafta) 100-50-75 mg tablet take 2 Tabs (elexacaftor 100mg/tezacaftor 50mg/ivacaftor 75mg) PO Q AM and 1 Tab (ivacaftor 150mg) PO Q Evening with fatty foods. fluticasone (Flonase) 50 mcg/actuation nasal spray 2 sprays, Each Nostril, Daily, Shake gently. Before first use, prime pump. After use, clean tip and replace cap. [employer] Crow 3 Sensor device Change sensor every 14 days for glucose monitoring glucagon (GLUCAGEN) 1 mg insulin glargine (Basaglar KwikPen U-100 Insulin) 100 unit/mL (3 mL) pen Inject up to 50 units daily insulin lispro (HumaLOG U-100 Insulin) 100 unit/mL injection Use up to 50 units daily as directed blobhj-qduriyxc-sziecjr (Zenpep) 25,000-79,000- 105,000 unit capsule 3 capsules, oral, 3 times daily with meals, Take 5-7 caps with meals and 3 caps with snacks mirtazapine (REMERON) 15 mg, oral, Nightly pen needle, diabetic 32 gauge x 5/32 needle Use to inject insulin 4-6 times daily sodium chloride 7 % solution for nebulization nebulizer solution Inhale 1 vial via nebulizer twice a day vit A-vit D3-vit E-vit K (DEKAs Essential) 2,000 unit-2000 unit-1,000 mcg capsule capsule 1,000 mcg, oral, Daily Physical Examination Vitals: 09/18/23 1107 BP: 133/90 Pulse: 103 Resp: 18 Temp: 36.5 C (97.7 F) SpO2: 97% General: ambulated independently; no acute distress; thin, chronically ill appearing HEENT: normocephalic; anicteric sclerae; conjunctivae not injected; nasal mucosa was unremarkable; oropharynx was clear without evidence of thrush; dentition was good; TM's clear bilaterally, +clear rhinorrhea; ++Temporal wasting Neck: supple; no lymphadenopathy Chest: rales that clear with coughing otherwise clear to auscultation bilaterally Cardiac: regular rhythm; no gallop or murmur. Abdomen: soft; non-tender; non-distended; no hepatosplenomegaly. Extremities: no leg edema; (+) digital clubbing; 2+ pulses Psychiatric: did not appear depressed or anxious. Metabolic Parameters Sodium Date/Time Value Ref Range Status 04/24/2023 02:39 PM 131 (L) 136 - 145 mmol/L Final Potassium Date/Time Value Ref Range Status 04/24/2023 02:39 PM 4.8 3.5 - 5.3 mmol/L Final Chloride Date/Time Value Ref Range Status 04/24/2023 02:39 PM 95 (L) 98 - 107 mmol/L Final Bicarbonate Date/Time Value Ref Range Status 04/24/2023 02:39 PM 29 21 - 32 mmol/L Final Anion Gap Date/Time Value Ref Range Status 04/24/2023 02:39 PM 12 10 - 20 mmol/L Final Urea Nitrogen Date/Time Value Ref Range Status 04/24/2023 02:39 PM 15 6 - 23 mg/dL Final Creatinine Date/Time Value Ref Range Status 04/24/2023 02:39 PM 0.88 0.50 - 1.30 mg/dL Final GFR MALE Date/Time Value Ref Range Status 10/04/2021 11:09 AM >90 >90 mL/min/1.73m2 Final Comment: CALCULATIONS OF ESTIMATED GFR ARE PERFORMED USING THE 2020 CKD-EPI STUDY REFIT EQUATION WITHOUT THE RACE VARIABLE FOR THE IDMS-TRACEABLE CREATININE METHODS. https://jasn.asnjournals.org/co ntent/early//ASN.[email or web address] 785779 Glucose Date/Time Value Ref Range Status 04/24/2023 02:39 PM 591 (HH) 74 - 99 mg/dL Final Calcium Date/Time Value Ref Range Status 04/24/2023 02:39 PM 9.2 8.6 - 10.6 mg/dL Final Phosphorus Date/Time Value Ref Range Status 04/24/2023 02:39 PM 4.3 2.5 - 4.9 mg/dL Final Comment: The performance characteristics of phosphorus testing in heparinized plasma have been validated by the individual laboratory site where testing is performed. Testing on heparinized plasma is not approved by the FDA; however, such approval is not necessary. Hematologic Parameters WBC Date/Time Value Ref Range Status 04/24/2023 02:39 PM 9.5 4.4 - 11.3 x10*3/uL Final Neutrophils Absolute Date/Time Value Ref Range Status 04/24/2023 02:39 PM 5.88 1.20 - 7.70 x10*3/uL Final Comment: Percent differential counts (%) should be interpreted in the context of the absolute cell counts (cells/uL). Neutrophils % Date/Time Value Ref Range Status 04/24/2023 02:39 PM 62.1 40.0 - 80.0 % Final Lymphocytes % Date/Time Value Ref Range Status 04/24/2023 02:39 PM 28.1 13.0 - 44.0 % Final Monocytes % Date/Time Value Ref Range Status 04/24/2023 02:39 PM 5.7 2.0 - 10.0 % Final Basophils % Date/Time Value Ref Range Status 04/24/2023 02:39 PM 0.9 0.0 - 2.0 % Final Eosinophils Absolute Date/Time Value Ref Range Status 04/24/2023 02:39 PM 0.27 0.00 - 0.70 x10*3/uL Final Eosinophils % Date/Time Value Ref Range Status 04/24/2023 02:39 PM 2.8 0.0 - 6.0 % Final Hemoglobin Date/Time Value Ref Range Status 04/24/2023 02:39 PM 14.3 13.5 - 17.5 g/dL Final Hematocrit Date/Time Value Ref Range Status 04/24/2023 02:39 PM 44.0 41.0 - 52.0 % Final RBC Date/Time Value Ref Range Status 04/24/2023 02:39 PM 5.16 4.50 - 5.90 x10*6/uL Final MCV Date/Time Value Ref Range Status 04/24/2023 02:39 PM 85 80 - 100 fL Final MCHC Date/Time Value Ref Range Status 04/24/2023 02:39 PM 32.5 32.0 - 36.0 g/dL Final Platelets Date/Time Value Ref Range Status 04/24/2023 02:39 PM 362 150 - 450 x10*3/uL Final Fat-Soluble Vitamin Levels Vitamin D, 25-Hydroxy, Total Date/Time Value Ref Range Status 04/24/2023 02:39 PM 14 (L) 30 - 100 ng/mL Final Vitamin A (Retinol) Date/Time Value Ref Range Status 04/24/2023 02:39 PM 0.41 0.30 - 1.20 mg/L Final Vitamin A, Interpretation Date/Time Value Ref Range Status 04/24/2023 02:39 PM Normal Final Comment: This test was developed and its performance characteristics determined by [facility]. It has not been cleared or approved by the US Food and Drug Administration. This test was performed in a CLIA certified laboratory and is intended for clinical purposes. Performed By: [facility] [address] [place] [id number] Panel Coverer: Chiki Valencia MD, PhD CLIA Number: [id number] Vitamin E (Alpha-Tocopherol) Date/Time Value Ref Range Status 04/24/2023 02:39 PM 2.9 (L) 5.5 - 18.0 mg/L Final Comment: This test was developed and its performance characteristics determined by [facility]. It has not been cleared or approved by the US Food and Drug Administration. This test was performed in a CLIA certified laboratory and is intended for clinical purposes. Vitamin E (Gamma-Tocopherol) Date/Time Value Ref Range Status 04/24/2023 02:39 PM 0.7 0.0 - 6.0 mg/L Final Comment: Performed By: [facility] [address] [place] [address] Panel Coverer: Chiki Valencia MD, PhD CLIA Number: [id number] LFT and Associated Parameters AST Date/Time Value Ref Range Status 04/24/2023 02:39 PM 42 (H) 9 - 39 U/L Final ALT Date/Time Value Ref Range Status 04/24/2023 02:39 PM 60 (H) 10 - 52 U/L Final Comment: Patients treated with Sulfasalazine may generate falsely decreased results for ALT. Alkaline Phosphatase Date/Time Value Ref Range Status 04/24/2023 02:39 PM 247 (H) 33 - 120 U/L Final Bilirubin, Total Date/Time Value Ref Range Status 04/24/2023 02:39 PM 0.5 0.0 - 1.2 mg/dL Final Bilirubin, Direct Date/Time Value Ref Range Status 04/24/2023 02:39 PM 0.1 0.0 - 0.3 mg/dL Final GGT Date/Time Value Ref Range Status 04/24/2023 02:39 PM 187 (H) 5 - 64 U/L Final Albumin Date/Time Value Ref Range Status 04/24/2023 02:39 PM 4.0 3.4 - 5.0 g/dL Final Total Protein Date/Time Value Ref Range Status 04/24/2023 02:39 PM 7.4 6.4 - 8.2 g/dL Final Coagulation Parameters Protime Date/Time Value Ref Range Status 10/04/2021 11:09 AM 11.8 9.8 - 13.4 sec Final INR Date/Time Value Ref Range Status 10/04/2021 11:09 AM 1.0 0.9 - 1.1 Final Diabetes Laboratory Tests POC HEMOGLOBIN A1c Date/Time Value Ref Range Status 09/19/2023 02:49 PM 10.0 (A) 4.2 - 6.5 % Final Albumin/Creatine Ratio Date/Time Value Ref Range Status 04/24/2023 10:19 AM 43.7 (H) <30.0 ug/mg Creat Final Immunology Laboratory Tests IgE Date/Time Value Ref Range Status 04/24/2023 02:39 PM 14 0 - 214 IU/mL Final DEXA Scan 10/10/2021: DEXA Scan Normal Chest Radiograph CHEST 2 VIEW 10/04/2021 Narrative Patient Name: BRAVO ALBRECHT STUDY: TH CHEST 2 VIEW PA AND LAT; 10/04/2021 1:06 pm INDICATION: CF E84.9: Cystic fibrosis. COMPARISON: 07/23/2018. ACCESSION NUMBER(S): [id number] ORDERING CLINICIAN: JALEESA ALLAN FINDINGS: CARDIOMEDIASTINAL SILHOUETTE: Cardiomediastinal silhouette is normal in size and configuration. LUNGS: There is upper lobe peribronchial thickening with right upper lobe bronchiectatic changes. There is no acute airspace disease when compared to a study of 05/23/2019. Slight interval improvement in peribronchial thickening when compared to prior studies. ABDOMEN: No remarkable upper abdominal findings. BONES: No acute osseous changes. Impression 1. There is no acute airspace disease. Diffuse peribronchial thickening and upper lobe bronchiectatic changes consistent with history of cystic fibrosis. No acute airspace disease. CF Sputum Culture 2021 - MSSA 2019 - Rapid grower Mycobacterium Problem List Items Addressed This Visit Anxiety - Primary Relevant Medications busPIRone (Buspar) 5 mg tablet Cystic fibrosis with pulmonary manifestations (CMS/HCC) Relevant Medications budesonide-formoteroL (Symbicort) 80-4.5 mcg/actuation inhaler cholecalciferol (Vitamin D-3) 5,000 Units tablet vit A-vit D3-vit E-vit K (DEKAs Essential) 2,000 unit-2000 unit-1,000 mcg capsule capsule albuterol 90 mcg/actuation inhaler Other Visit Diagnoses Cystic fibrosis (CMS/HCC) Relevant Medications imtczplqrzf-ayesgviaxm-tctlasr (Trikafta) 100-50-75 mg tablet fluticasone (Flonase) 50 mcg/actuation nasal spray Other Relevant Orders AFB Culture/Smear Fungal Culture/Smear (Completed) Respiratory Culture, Cystic Fibrosis (Completed) Rhinosinusitis Relevant Medications busPIRone (Buspar) 5 mg tablet Bravo is a 37 year old with CF (MSSA, Mycobacterium, last PSA 2017) here for routine follow-up. His health is declining with weightloss, decrease in FEV1 without exacerbation (FEV1=88% off Trikafta). CT Chest obtained in clinic for concern of NTM and imaging consistent with MAC vs fungal disease and after discussion Bravo is agreeable to bronchoscopy given lack of prior Mycobacterial speciation. He also met with endocrinology today. Discussed need to follow-up with GI given cirrhosis + colonic polyp - given the number of tings to get back on track goal is to have this completed by the end of the year. Detailed plan as below. > Cystic Fibrosis without exacerbation (N/dF508;NFV9=995->88% today) - Modulator: START Trikafta - Bronchodilators: Albuterol, Symbicort - HTS: not using - Dornase: defer for now as re-initiating airway clearance - Inhaled ABX: none - Airway Clearance: Vest Sick Plan: Bactrim 1 DS tab bid x 14 days Health Care Maintenance: - PFT completed today - - Annual labs + HbA1C today -- AFB today, Fungal, CF Cultures/steffanie - Last CXR - 09/2021 - Lung CT Scan 09/17 - my read shows numerous scattered tree and bud opacities with bronchiectasis c/w CF diagnosis with scattered mucus - DEXA Scan - 09/2021 - Colon Ca Screening - last colonoscopy 2019 with tubular adenoma - follow-up with GI; anticipate repeat colonoscopy - CFRD- HbA1C =10 - Transplant - discussed, pt reported he would not be interested, mother in room reports he would be; he is far too well at this point for consideration - knows this is a yearly conversation > Hx NTM, Rapid Grower (2019) - Repeat Sputum - culture provided today - Weight loss + intermittent night sweats raises concern - Bronchoscopy to be scheduled with myself > CFRD - Seen by endocrinology today > Exocrine Pancreatic insufficiency - Seen by RD today - Continue Enzymes + at work - Enzymes refilled > Cirrhosis - Follow-up with Dr. Briceño with GI > Smoking Cessation - Counseling provided >Vaccines - UTD on flu vaccine - COVID vaccine recommended I spent a total of 63 minutes with this encounter. Follow-up in 3 months Carmelita Waters MD 09/18/2023 documented in this encounter [facility] Work Phone: 10-01-2023 History and physical note H&P reviewed. The patient was examined and there are no changes to the H&P. Source Note - Carmelita Waters MD - 09/18/2023 11:00 AM EDT Images from the original note were not included. Stanford Ceja M.D. [facility] Background: Bravo is a 38-year-old male with history of CF on Trikafta (N/dF508;TPO9=396%; chronic colonization of MSSA (2021), PSA, (2018). Mycobacterium (2019)), CFRD, pancreatic insufficiency, SVT, and cirrhosis (follows with Dr. Briceño). He was last seen by myself on 04/24/23 with a CF exacerbation requiring admission to [facility] 06/05/23. HPI (09/20/2023): Bravo is here with his mother. He reports having worsening respiratory symptoms, decreased exercise tolerance, weight loss, and increased sputum production (no blood). He has had associated night sweats. He reports being off of Trikafta since May due to issues with insurance with a job change as a told that he may care. He likes his job and is on his feet most of the day which is his exercise. He does feel like he moves slower than most people his own age. He does feel like his bowels have slowed up a bit, but when I go I go . He is in no pain or discomfort but just has a change in bowel habits. He does have occasional sharp epigastric pain that causes him to hunch over which is related to eating greasy or foods without taking extra pancreatic enzymes. His sinus congestion is at his baseline. He reports he is sleeping terribly due to increase in coughing which is a very dry cough at night and on occasion productive. 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 Chewing tobacco Current Use of Health Management Strategies: Respiratory Interventions Albuterol: Two times per day Pulmozyme: Does not use Hypertonic saline: 7% in the past Does not use HFCWO (percussive vest): [place] ([place]) Other - when getting chest colds 1-2 x/year; (+) friend coughing numerous times/day Oscillatory PEP: Does not use Exercise: No Regular Exercise currently; was doing weight-lifting and running/walking last consistently 3 years ago LTE antagonist: No Azithromycin: Does not use Aztreonam lysine ([place]): Does not use Tobramycin Other: Does not use previously used - has had hx of dizziness with medication Colistin: Does not use previously used Meropenem (inhaled): Does not use ICS: Does not use ICS/LABA: Budesonide-formoterol (Symbicort HFA) morning at night after albuterol LAMA: No CFTR modulator: Ocbrjdsslgi-Nvsoyexskl-Vuednlyh r (Trikafta) Full-dose (2 orange tablets in AM, 1 blue tablet in PM) - last used in May Oxygen: Does not use Digestive Health Interventions Acid-suppressing medication?: No Using CF vitamins?: No Taking pancreatic enzymes?: Yes 3 tabs of ZenPEP with meals and 2 tabs with snacks Any diarrhea?: No Any steatorrhea?: No Any constipation?: Yes - off and on Using laxatives?: No - will use apple juice if constipated; has not been admitted for JUDIE Feeding tube?: No Supplemental enteral nutrition?: Yes - Ghost Protein drink from [facility] - 2 shakes/day + [employer] [facility] Tam - 1/ day at night Pulmonary Function Test Results 09/18/23: FEV1= 87.8% (5.27L) 04/24/23: TTC9=125% (decreased from 112% last year) Current Medications Current Outpatient Medications Medication Instructions albuterol 90 mcg/actuation inhaler 2 puffs, inhalation, Every 4 hours PRN albuterol 2.5 mg, nebulization, Every 4 hours PRN Baqsimi 3 mg/actuation spray,non-aerosol Lubec 3 mg nasally as needed for severe hypoglycemia blood sugar diagnostic (Accu-Chek Guide test strips) strip test 6-7 times daily budesonide-formoteroL (Symbicort) 80-4.5 mcg/actuation inhaler 2 puffs, inhalation, 2 times daily RT busPIRone (BUSPAR) 5 mg, oral, 2 times daily cholecalciferol (VITAMIN D-3) 5,000 Units, oral, Daily slziulpvswk-tysymbldje-pwvqhgd (Trikafta) 100-50-75 mg tablet take 2 Tabs (elexacaftor 100mg/tezacaftor 50mg/ivacaftor 75mg) PO Q AM and 1 Tab (ivacaftor 150mg) PO Q Evening with fatty foods. fluticasone (Flonase) 50 mcg/actuation nasal spray 2 sprays, Each Nostril, Daily, Shake gently. Before first use, prime pump. After use, clean tip and replace cap. [employer] Crow 3 Sensor device Change sensor every 14 days for glucose monitoring glucagon (GLUCAGEN) 1 mg insulin glargine (Basaglar KwikPen U-100 Insulin) 100 unit/mL (3 mL) pen Inject up to 50 units daily insulin lispro (HumaLOG U-100 Insulin) 100 unit/mL injection Use up to 50 units daily as directed lhcuyj-krablykm-hntppmu (Zenpep) 25,000-79,000- 105,000 unit capsule 3 capsules, oral, 3 times daily with meals, Take 5-7 caps with meals and 3 caps with snacks mirtazapine (REMERON) 15 mg, oral, Nightly pen needle, diabetic 32 gauge x 5/32 needle Use to inject insulin 4-6 times daily sodium chloride 7 % solution for nebulization nebulizer solution Inhale 1 vial via nebulizer twice a day vit A-vit D3-vit E-vit K (DEKAs Essential) 2,000 unit-2000 unit-1,000 mcg capsule capsule 1,000 mcg, oral, Daily Physical Examination Vitals: 09/18/23 1107 BP: 133/90 Pulse: 103 Resp: 18 Temp: 36.5 C (97.7 F) SpO2: 97% General: ambulated independently; no acute distress; thin, chronically ill appearing HEENT: normocephalic; anicteric sclerae; conjunctivae not injected; nasal mucosa was unremarkable; oropharynx was clear without evidence of thrush; dentition was good; TM's clear bilaterally, +clear rhinorrhea; ++Temporal wasting Neck: supple; no lymphadenopathy Chest: rales that clear with coughing otherwise clear to auscultation bilaterally Cardiac: regular rhythm; no gallop or murmur. Abdomen: soft; non-tender; non-distended; no hepatosplenomegaly. Extremities: no leg edema; (+) digital clubbing; 2+ pulses Psychiatric: did not appear depressed or anxious. Metabolic Parameters Sodium Date/Time Value Ref Range Status 04/24/2023 02:39 PM 131 (L) 136 - 145 mmol/L Final Potassium Date/Time Value Ref Range Status 04/24/2023 02:39 PM 4.8 3.5 - 5.3 mmol/L Final Chloride Date/Time Value Ref Range Status 04/24/2023 02:39 PM 95 (L) 98 - 107 mmol/L Final Bicarbonate Date/Time Value Ref Range Status 04/24/2023 02:39 PM 29 21 - 32 mmol/L Final Anion Gap Date/Time Value Ref Range Status 04/24/2023 02:39 PM 12 10 - 20 mmol/L Final Urea Nitrogen Date/Time Value Ref Range Status 04/24/2023 02:39 PM 15 6 - 23 mg/dL Final Creatinine Date/Time Value Ref Range Status 04/24/2023 02:39 PM 0.88 0.50 - 1.30 mg/dL Final GFR MALE Date/Time Value Ref Range Status 10/04/2021 11:09 AM >90 >90 mL/min/1.73m2 Final Comment: CALCULATIONS OF ESTIMATED GFR ARE PERFORMED USING THE 2020 CKD-EPI STUDY REFIT EQUATION WITHOUT THE RACE VARIABLE FOR THE IDMS-TRACEABLE CREATININE METHODS. https://jasn.asnjournals.org/co ntent//09/22/ASN [email or web address] Glucose Date/Time Value Ref Range Status 04/24/2023 02:39 PM 591 (HH) 74 - 99 mg/dL Final Calcium Date/Time Value Ref Range Status 04/24/2023 02:39 PM 9.2 8.6 - 10.6 mg/dL Final Phosphorus Date/Time Value Ref Range Status 04/24/2023 02:39 PM 4.3 2.5 - 4.9 mg/dL Final Comment: The performance characteristics of phosphorus testing in heparinized plasma have been validated by the individual laboratory site where testing is performed. Testing on heparinized plasma is not approved by the FDA; however, such approval is not necessary. Hematologic Parameters WBC Date/Time Value Ref Range Status 04/24/2023 02:39 PM 9.5 4.4 - 11.3 x10*3/uL Final Neutrophils Absolute Date/Time Value Ref Range Status 04/24/2023 02:39 PM 5.88 1.20 - 7.70 x10*3/uL Final Comment: Percent differential counts (%) should be interpreted in the context of the absolute cell counts (cells/uL). Neutrophils % Date/Time Value Ref Range Status 04/24/2023 02:39 PM 62.1 40.0 - 80.0 % Final Lymphocytes % Date/Time Value Ref Range Status 04/24/2023 02:39 PM 28.1 13.0 - 44.0 % Final Monocytes % Date/Time Value Ref Range Status 04/24/2023 02:39 PM 5.7 2.0 - 10.0 % Final Basophils % Date/Time Value Ref Range Status 04/24/2023 02:39 PM 0.9 0.0 - 2.0 % Final Eosinophils Absolute Date/Time Value Ref Range Status 04/24/2023 02:39 PM 0.27 0.00 - 0.70 x10*3/uL Final Eosinophils % Date/Time Value Ref Range Status 04/24/2023 02:39 PM 2.8 0.0 - 6.0 % Final Hemoglobin Date/Time Value Ref Range Status 04/24/2023 02:39 PM 14.3 13.5 - 17.5 g/dL Final Hematocrit Date/Time Value Ref Range Status 04/24/2023 02:39 PM 44.0 41.0 - 52.0 % Final RBC Date/Time Value Ref Range Status 04/24/2023 02:39 PM 5.16 4.50 - 5.90 x10*6/uL Final MCV Date/Time Value Ref Range Status 04/24/2023 02:39 PM 85 80 - 100 fL Final MCHC Date/Time Value Ref Range Status 04/24/2023 02:39 PM 32.5 32.0 - 36.0 g/dL Final Platelets Date/Time Value Ref Range Status 04/24/2023 02:39 PM 362 150 - 450 x10*3/uL Final Fat-Soluble Vitamin Levels Vitamin D, 25-Hydroxy, Total Date/Time Value Ref Range Status 04/24/2023 02:39 PM 14 (L) 30 - 100 ng/mL Final Vitamin A (Retinol) Date/Time Value Ref Range Status 04/24/2023 02:39 PM 0.41 0.30 - 1.20 mg/L Final Vitamin A, Interpretation Date/Time Value Ref Range Status 04/24/2023 02:39 PM Normal Final Comment: This test was developed and its performance characteristics determined by [facility]. It has not been cleared or approved by the US Food and Drug Administration. This test was performed in a CLIA certified laboratory and is intended for clinical purposes. Performed By: [facility] [address] [place] [address] Panel Coverer: Chiki Valencia MD, PhD CLIA Number: [id number] Vitamin E (Alpha-Tocopherol) Date/Time Value Ref Range Status 04/24/2023 02:39 PM 2.9 (L) 5.5 - 18.0 mg/L Final Comment: This test was developed and its performance characteristics determined by [facility]. It has not been cleared or approved by the US Food and Drug Administration. This test was performed in a CLIA certified laboratory and is intended for clinical purposes. Vitamin E (Gamma-Tocopherol) Date/Time Value Ref Range Status 04/24/2023 02:39 PM 0.7 0.0 - 6.0 mg/L Final Comment: Performed By: [facility] [address] [place] [address] Panel Coverer: Chiki Valencia MD, PhD CLIA Number: [id number] LFT and Associated Parameters AST Date/Time Value Ref Range Status 04/24/2023 02:39 PM 42 (H) 9 - 39 U/L Final ALT Date/Time Value Ref Range Status 04/24/2023 02:39 PM 60 (H) 10 - 52 U/L Final Comment: Patients treated with Sulfasalazine may generate falsely decreased results for ALT. Alkaline Phosphatase Date/Time Value Ref Range Status 04/24/2023 02:39 PM 247 (H) 33 - 120 U/L Final Bilirubin, Total Date/Time Value Ref Range Status 04/24/2023 02:39 PM 0.5 0.0 - 1.2 mg/dL Final Bilirubin, Direct Date/Time Value Ref Range Status 04/24/2023 02:39 PM 0.1 0.0 - 0.3 mg/dL Final GGT Date/Time Value Ref Range Status 04/24/2023 02:39 PM 187 (H) 5 - 64 U/L Final Albumin Date/Time Value Ref Range Status 04/24/2023 02:39 PM 4.0 3.4 - 5.0 g/dL Final Total Protein Date/Time Value Ref Range Status 04/24/2023 02:39 PM 7.4 6.4 - 8.2 g/dL Final Coagulation Parameters Protime Date/Time Value Ref Range Status 10/04/2021 11:09 AM 11.8 9.8 - 13.4 sec Final INR Date/Time Value Ref Range Status 10/04/2021 11:09 AM 1.0 0.9 - 1.1 Final Diabetes Laboratory Tests POC HEMOGLOBIN A1c Date/Time Value Ref Range Status 09/19/2023 02:49 PM 10.0 (A) 4.2 - 6.5 % Final Albumin/Creatine Ratio Date/Time Value Ref Range Status 04/24/2023 10:19 AM 43.7 (H) <30.0 ug/mg Creat Final Immunology Laboratory Tests IgE Date/Time Value Ref Range Status 04/24/2023 02:39 PM 14 0 - 214 IU/mL Final DEXA Scan 10/10/2021: DEXA Scan Normal Chest Radiograph CHEST 2 VIEW 10/04/2021 Narrative Patient Name: BRAVO ALBRECHT STUDY: TH CHEST 2 VIEW PA AND LAT; 10/04/2021 1:06 pm INDICATION: CF E84.9: Cystic fibrosis. COMPARISON: 07/23/2018. ACCESSION NUMBER(S): [id number] ORDERING CLINICIAN: JALEESA ALLAN FINDINGS: CARDIOMEDIASTINAL SILHOUETTE: Cardiomediastinal silhouette is normal in size and configuration. LUNGS: There is upper lobe peribronchial thickening with right upper lobe bronchiectatic changes. There is no acute airspace disease when compared to a study of 05/23/2019. Slight interval improvement in peribronchial thickening when compared to prior studies. ABDOMEN: No remarkable upper abdominal findings. BONES: No acute osseous changes. Impression 1. There is no acute airspace disease. Diffuse peribronchial thickening and upper lobe bronchiectatic changes consistent with history of cystic fibrosis. No acute airspace disease. CF Sputum Culture 2021 - MSSA 2019 - Rapid grower Mycobacterium Problem List Items Addressed This Visit Anxiety - Primary Relevant Medications busPIRone (Buspar) 5 mg tablet Cystic fibrosis with pulmonary manifestations (CMS/HCC) Relevant Medications budesonide-formoteroL (Symbicort) 80-4.5 mcg/actuation inhaler cholecalciferol (Vitamin D-3) 5,000 Units tablet vit A-vit D3-vit E-vit K (DEKAs Essential) 2,000 unit-2000 unit-1,000 mcg capsule capsule albuterol 90 mcg/actuation inhaler Other Visit Diagnoses Cystic fibrosis (CMS/HCC) Relevant Medications fwbykmffbve-xlcruqmwxs-xwmqazu (Trikafta) 100-50-75 mg tablet fluticasone (Flonase) 50 mcg/actuation nasal spray Other Relevant Orders AFB Culture/Smear Fungal Culture/Smear (Completed) Respiratory Culture, Cystic Fibrosis (Completed) Rhinosinusitis Relevant Medications busPIRone (Buspar) 5 mg tablet Bravo is a 37 year old with CF (MSSA, Mycobacterium, last PSA 2017) here for routine follow-up. His health is declining with weightloss, decrease in FEV1 without exacerbation (FEV1=88% off Trikafta). CT Chest obtained in clinic for concern of NTM and imaging consistent with MAC vs fungal disease and after discussion Bravo is agreeable to bronchoscopy given lack of prior Mycobacterial speciation. He also met with endocrinology today. Discussed need to follow-up with GI given cirrhosis + colonic polyp - given the number of tings to get back on track goal is to have this completed by the end of the year. Detailed plan as below. > Cystic Fibrosis without exacerbation (N/dF508;IWV0=079->88% today) - Modulator: START Trikafta - Bronchodilators: Albuterol, Symbicort - HTS: not using - Dornase: defer for now as re-initiating airway clearance - Inhaled ABX: none - Airway Clearance: Vest Sick Plan: Bactrim 1 DS tab bid x 14 days Health Care Maintenance: - PFT completed today - - Annual labs + HbA1C today -- AFB today, Fungal, CF Cultures/steffanie - Last CXR - 09/2021 - Lung CT Scan 09/17 - my read shows numerous scattered tree and bud opacities with bronchiectasis c/w CF diagnosis with scattered mucus - DEXA Scan - 09/2021 - Colon Ca Screening - last colonoscopy 2019 with tubular adenoma - follow-up with GI; anticipate repeat colonoscopy - CFRD- HbA1C =10 - Transplant - discussed, pt reported he would not be interested, mother in room reports he would be; he is far too well at this point for consideration - knows this is a yearly conversation > Hx NTM, Rapid Grower (2019) - Repeat Sputum - culture provided today - Weight loss + intermittent night sweats raises concern - Bronchoscopy to be scheduled with myself > CFRD - Seen by endocrinology today > Exocrine Pancreatic insufficiency - Seen by RD today - Continue Enzymes + at work - Enzymes refilled > Cirrhosis - Follow-up with Dr. Briceño with GI > Smoking Cessation - Counseling provided >Vaccines - UTD on flu vaccine - COVID vaccine recommended I spent a total of 63 minutes with this encounter. Follow-up in 3 months Carmelita Waters MD 09/18/2023 documented in this encounter [facility] Work Phone: 10-27-2021 Hospital Discharge instructions Homer Sewell DO - 10/27/2021 Please continue to monitor your symptoms closely at home. You should continue to take Tylenol and ibuprofen alternating every 4 hours to treat your fever and myalgias. If you have a progression of your symptoms, you are unable to eat or drink or you have development of new symptoms that are concerning you should return to the emergency department immediately for reevaluation. The following attachments cannot be sent through Care Everywhere.Viral Infections (Israeli)documented in this encounter [facility] Work Phone: 10-17-2020 History of Present illness Narrative Food Insecurity:1. Within the past 12 months, you worried that your food would run out before you got money to buy more: No2. Within the past 12 months, the food you bought just didn't last and you didn't have money to get more: No [id number] [address] [facility] Work Phone: Chief complaint Narrative - Reported Peripheral venipuncture for annual labs and [employer] : Procedure followed per policy for blood draw; Pt skin prepped, blood sample obtained per providers order. Applied clean, dry adhesive dressing to exit site. Pt tolerated the procedure with no problems. Instructed pt to keep dressing on for at least an hour after lab draw. [id number] [address] [facility] Work Phone: Evaluation note Diagnosis Viral illness- Primary Unspecified viral infection, in conditions classified elsewhere and of unspecified site Acute upper respiratory infection Acute upper respiratory infections of unspecified site Dehydration documented in this encounter [employer] Work Phone: evaluation note* Diagnosis Viral illness- Primary Unspecified viral infection, in conditions classified elsewhere and of unspecified site documented in this encounter [employer] Phone: evaluation note* Diagnosis Acute viral syndrome- Primary Neurapraxia of left lower extremity, initial encounter documented in this encounter [employer] Phone: evaluation note* Diagnosis Mycobacterial, 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 Cystic fibrosis (CMS/HCC) Cystic fibrosis without mention of meconium ileus documented in this encounter [facility] Work Phone: Evaluation note* Diagnosis CF (cystic fibrosis) (CMS/HCC) Cystic fibrosis without mention of meconium ileus documented in this encounter [facility] Work Phone: Evaluation note* Diagnosis Mycobacterial, 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 Cystic fibrosis (CMS/HCC) Cystic fibrosis without mention of meconium ileus documented in this encounter [facility] Work Phone: Evaluation note* Diagnosis CF (cystic fibrosis) (CMS/HCC) Cystic fibrosis without mention of meconium ileus documented in this encounter [facility] Work Phone: Evaluation note* Diagnosis Cystic fibrosis with pulmonary manifestations (CMS/HCC) Cystic fibrosis with pulmonary manifestations documented in this encounter [facility] Work Phone: Evaluation note* Diagnosis Cystic fibrosis with pulmonary manifestations (CMS/HCC) Cystic fibrosis with pulmonary manifestations documented in this encounter [facility] Work Phone: History of Present illness Narrative* Last visit: * [facility]. [facility] [place] [facility] [address] for [facility]s * 2. Start Remeron at 15 mg by mouth before bed * 3. Resume Trikafta * 4. Appt with Dr. Kaiser and Dr. Briceño next time we see him * 5. Refill on enzymes, Trikafta, albuterol puffer, symbicort, not using pulmozyme * 6 Return in 2-3 months with , Joe Briceño * 7. If you don't like the Remeron, let us know * 8. Get back to the gym! * 9. Soooooo glad you're back. * Health Maintenance * Your Annual Labs were labs were last done on: 03/2020 * Annual Labs are next due on: 03/2021 * Your last DEXA scan was on: Jul 2018 * It is next due on: 2022 * Your last chest x-ray was on: Jul 2018 * Next routine CXR due on: Jul 2020 * Last audiology assessment was on: not on file * You had colonoscopy in 04/2020 * Due again - ? will need to ask Margaret Briceño * Worked in [place] for [employer] * Moved home to care fo biju Dad * Lived in [place] * In [place] area -40 miles to * Apartment was $3600/month, gas $5.70 * Wage was way better - $72 per hour * Was like being here but had more wriggle room * Is working back here. 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 * Was training on his days off * No testosterone supplementation anymore * Trikafta * Albuterol * Never really had any other pulmonary meds * Chronic Antibiotics * Azithromycin: No * Inhaled antibiotics: BERNA * airway clearance: Vest twice a day * Oxygen: no * Transplant: no * GI: * no constipation * CFRD * Blood sugars are running about 200 right now * Diet is not good right now due to current circumstances * MOst days is about 80 when wakes up * Runs about 143 at other times * Insulin is still the same 50 and 50 of lantus q 12 * With meals is 8 units of short acting * Saw a family doctor and he prescribed the insulin [id number] [address] [facility] Work Phone: Hospital Discharge instructions* Instructions* Rebecca Nayak MD - 06/26/2021 Thank you for trusting us with your care today. You may use tylenol or ibuprofen for fever and pain. Please make an appointment with your primary care doctor for reevalaution in 1-4 days. Please return to the emergency department for any new concerning or worsening symptoms. * Attachments The following attachments cannot be sent through Care Everywhere. * URI (Upper Respiratory Infection) (Israeli) * Viral Infections (Israeli) * Oral Rehydration (Israeli) [facility] Work Phone: Hospital Discharge instructions* Attachments The following attachments cannot be sent through Care Everywhere. * Viral Infections (Israeli) [facility] Phone: Family History No Family History Records Found Mother Name Dates Details Family history of diabetes m ellitus(V18.0, Z83.3) Status:Active Father Name Dates Details Family history of diabetes m ellitus(V18.0, Z83.3) Status:Active Mother Name Dates Details Family history of diabetes m ellitus(V18.0, Z83.3) Status:Active Father Name Dates Details Family history of diabetes m ellitus(V18.0, Z83.3) Status:Active Mother Name Dates Details Family history of diabetes m ellitus(V18.0, Z83.3) Status:Active Father Name Dates Details Family history of diabetes m ellitus(V18.0, Z83.3) Status:Active Mother Name Dates Details Family history of diabetes m ellitus(V18.0, Z83.3) Status:Active Father Name Dates Details Family history of diabetes m ellitus(V18.0, Z83.3) Status:Active Mother Name Dates Details Family history of diabetes m ellitus(V18.0, Z83.3) Status:Active Father Name Dates Details Family history of diabetes m ellitus(V18.0, Z83.3) Status:Active Mother Name Dates Details Family history of diabetes m ellitus(V18.0, Z83.3) Status:Active Father Name Dates Details Family history of diabetes m ellitus(V18.0, Z83.3) Status:Active Mother Name Dates Details Family history of diabetes m ellitus(V18.0, Z83.3) Status:Active Father Name Dates Details Family history of diabetes m ellitus(V18.0, Z83.3) Status:Active Mother Name Dates Details Family history of diabetes m ellitus(V18.0, Z83.3) Status:Active Father Name Dates Details Family history of diabetes m ellitus(V18.0, Z83.3) Status:Active Mother Name Dates Details Family history of diabetes m ellitus(V18.0, Z83.3) Status:Active Father Name Dates Details Family history of diabetes m ellitus(V18.0, Z83.3) Status:Active Mother Name Dates Details Family history of diabetes m ellitus(V18.0, Z83.3) Status:Active Father Name Dates Details Family history of diabetes m ellitus(V18.0, Z83.3) Status:Active Mother Name Dates Details Family history of diabetes m ellitus(V18.0, Z83.3) Status:Active Father Name Dates Details Family history of diabetes m ellitus(V18.0, Z83.3) Status:Active Mother Name Dates Details Family history of diabetes m ellitus(V18.0, Z83.3) Status:Active Father Name Dates Details Family history of diabetes m ellitus(V18.0, Z83.3) Status:Active Mother Name Dates Details Family history of diabetes m ellitus(V18.0, Z83.3) Status:Active Father Name Dates Details Family history of diabetes m ellitus(V18.0, Z83.3) Status:Active Mother Name Dates Details Family history of diabetes m ellitus(V18.0, Z83.3) Status:Active Father Name Dates Details Family history of diabetes m ellitus(V18.0, Z83.3) Status:Active Unknown Family Member Name Dates Details No pertinent family history: Mother(V49.89, Z78.9) Status:Active Unknown Family Member Name Dates Details No pertinent family history: Mother(V49.89, Z78.9) Status:Active Unknown Family Member Name Dates Details No pertinent family history: Mother(V49.89, Z78.9) Status:Active Unknown Family Member Name Dates Details No pertinent family history: Mother(V49.89, Z78.9) Status:Active Unknown Family Member Name Dates Details No pertinent family history: Mother(V49.89, Z78.9) Status:Active Unknown Family Member Name Dates Details No pertinent family history: Mother(V49.89, Z78.9) Status:Active Unknown Family Member Name Dates Details No pertinent family history: Mother(V49.89, Z78.9) Status:Active Unknown Family Member Name Dates Details No pertinent family history: Mother(V49.89, Z78.9) Status:Active Unknown Family Member Name Dates Details No pertinent family history: Mother(V49.89, Z78.9) Status:Active Unknown Family Member Name Dates Details No pertinent family history: Mother(V49.89, Z78.9) Status:Active Unknown Family Member Name Dates Details No pertinent family history: Mother(V49.89, Z78.9) Status:Active Summary Purpose Advance Directives No Advanced Directives Records FoundNo Advanced Directives Records FoundNo Advanced Directives Records FoundNo Advanced Directives Records FoundNo Advanced Directives Records FoundNo Advanced Directives Records Found Chief Complaint follow up visit for cystic fibrosis Reason for Referral Specialty Diagnoses / Procedures Referred By Contac t Referred To Contact Radiology Diagnoses Mycobacterial, atypical Cystic fibrosis ([facility]) Procedures [place] [address] [place] [place] [phone] Referral ID Status Reason Start Date Expiration Date Visits Requested Visits Authorized [id number] Authorized Perform Procedure 3 06/18/2024 1 1 Specialty Diagnoses / Procedures Referred By Contac t Referred To Contact Diagnoses CF (cystic fibrosis) ([facility]) [place] [address] [place] [address] Referral ID Status Reason Start Date Expiration Date V isits Requested Visits Authorized [id number] Pending Review 09/18/2023 09/17/2024 1 1 Specialty Diagnoses / Procedures Referred By Contac [place] [address] [place] [phone] Referral ID Status Reason Start Date Expiration Date V isits Requested Visits Authorized [id number] Pending Review 10/01/2023 09/30/2024 1 1 Referral ID Status Reason Start Date Expiration Date V isits Requested Visits Authorized [id number] Pending Review 10/01/2023 09/30/2024 1 1 Specialty Diagnoses / Procedures Referred By Contac t Referred To Contact Gastroenterology Diagnoses Cystic fibrosis with pulmonary manifestations (CMS/HCC) Procedures Bronchoscopy Tier 1; [place] [address] [place] [id number] Referral ID Status Reason Start Date Expiration Date V isits Requested Visits Authorized [id number] Authorized 09/19/2023 09/18/2024 1 1 Additional Source Comments (unrecognized sect ion and content) No Status Records FoundNo Status Records FoundNo Status Records FoundNo Status Records FoundNo Status Records FoundNo Status Records Found INFORMATION SOURCE (unrecogn ized section and content) DATE CREATED AUTHOR 01/30/2020 [facility] DATE CREATED AUTHOR AUTHOR'S ORGANIZ ATION 11/04/2021 [facility] DATE CREATED AUTHOR AUTHOR'S ORGANIZ ATION 11/30/2021 [facility] DATE CREATED AUTHOR AUTHOR'S ORGANIZ ATION 01/06/2022 [employer] DATE CREATED AUTHOR AUTHOR'S ORGANIZ ATION 03/05/2022 [facility] DATE CREATED AUTHOR AUTHOR'S ORGANIZ ATION 10/09/2023 [facility] Reason for Visit (unrecogniz ed section and content) Reason Comments Fever onset Cough onset Reason Comments Concern For COVID-19 request COVID test, symptoms onset 07/14 Reason Comments Numbness pt states he fell as leep in the car today with his left lower leg under him. Pt states his leg has been numb since then Chest Pain pt states he started having sharp left anterior chest pain this evening Specialty Diagnoses / Procedures Referred By Edie quevedo Referred To Contact Radiology Diagnoses Mycobacterial, atypical Cystic fibrosis ([facility]) Procedures [place] [address] [place] [address] Referral ID Status Reason Start Date Expiration Date Visits Requested Visits Authorized [id number] Authorized Perform Procedure 3 06/18/2024 1 1 Specialty Diagnoses / Procedures Referred By Edie t Referred To Contact Diagnoses CF (cystic fibrosis) ([facility]) [place] [address] [place] [address] Referral ID Status Reason Start Date Expiration Date V isits Requested Visits Authorized [id number] Pending Review 09/18/2023 09/17/2024 1 1 Specialty Diagnoses / Procedures Referred By Edie t Referred To Contact Gastroenterology Diagnoses Cystic fibrosis with pulmonary manifestations ([facility]) Procedures Bronchoscopy Tier 1; [place] [address] [place] [address] Referral ID Status Reason Start Date Expiration Date V isits Requested Visits Authorized [id number] Authorized 09/19/2023 09/18/2024 1 1 Scheduled Active and Recently Administ ered Medications (unrecognized section and content) Medication Order 06/24/2021 06/25/2021 06/26/2021 0.9 % sodium chloride bolus (COMPLETED) 2,000 mL (23.3 mL/kg), IntraVENous, at 2,000 mL/hr, Administer over 1 Hours, ONCE, On 06/25/21 at 2330, For 1 dose 2357 (New Bag - Provider: Joe Christine RN) 0057 (Stopped - Provider: Marylou Martin RN) ondansetron (ZOFRAN) injection 4 mg 4 mg, IntraVENous, ONCE, On 06/25/21 at 2330, For 1 dose 0025 (Not Given - Provider: Joe Christine RN - Reason: Patient/family refused) Scheduled Medication Order 10/25/2021 10/26/2021 10/27/2021 0.9 % sodium chloride bolus (COMPLETED) 1,000 mL, IntraVENous, at 495.9 mL/hr, Administer over 121 Minutes, ONCE, On Sat10/27/21 at 2100, For 1 dose, For adult patients weighing > 55 kg (120 lbs.) and less than <50 years of age initiate 0.9NS at 500 mL/ hr. All bolus orders are to be given over 10 to 15 minutes 2057 (New Bag - Prov ider: Jessica Kay RN)2219 (Stopped - Provider: Jessica Kay RN) 0.9 % sodium chloride bolus 1,000 mL, IntraVENous, at 983.6 mL/hr, Administer over 61 Minutes, ONCE, On Sat10/27/21 at 2215, For 1 dose, For adult patients weighing > 55 kg (120 lbs.) and less than <50 years of age initiate 0.9NS at 500 mL/ hr. All bolus orders are to be given over 10 to 15 minutes 2214 (Due) No Frequency Medication Order 10/25/2021 10/26/2021 10/27/2021 acetaminophen (TYLENOL) 500 MG tablet (COMPLETED) 1 dose, Starting on Sat10/27/21 at 2046, Until Sat10/27/21 at 2049, December: cabinet override, KayDecember: cabinet override 2049 (Given - Provid er: Jessica Kay RN) Ordered Prescriptions (unrec ognized section and content) Prescription Sig Dispensed Refills Start Date End Da te acetaminophen (TYLENOL) 500 MG tablet Take 2 tablets by mouth 3 times daily for 15 days 90 tablet 0 10/27/2021 11/11/2021 ibuprofen (ADVIL;MOTRIN) 600 MG tablet Take 1 tablet by mouth 3 times daily as needed for Pain 30 tablet 0 10/27/2021 Care Teams (unrecognized sec tion and content) Roof Promenade Tile Setter Relationship Specialty Start Date End Date Mirian Greenwood MD [address] [place] [facility] [address] [phone] PCP - General Family Medicine 07/25/21 Roof [employer] Tile Setter Relationship Specialty Start Date End Date Mirian Greenwood MD Referring Physician Emergency Medicine 04/24/23 Marlen Marcelo, PharmD [id number] [place] [address] Pharmacist Pharmacy 04/25/23 [place] [address] [place] [address] Clinical Lab Assistant Pulmonary Disease 04/25/23 Rae Faulkner, ANDREW Dietitian Nutrition 04/26/23 Georgina Adam, RN Registered Nurse Family Medicine 05/02/23 Ella Prasad, HEALTH INFORMATION MANAGEMENT DIRECTOR Respiratory Therapist Respiratory Therapy 06/18/23 Elo Mercedes, HEALTH INFORMATION MANAGEMENT DIRECTOR Respiratory Therapist Respiratory Therapy 07/11/23 Roof Promenade Tile Setter Relationship Specialty Start Date End Date Mirian Greenwood MD Referring Physician Emergency Medicine 04/24/23 Marlen Marcelo, PharmD [address] [place] [address] Pharmacist Pharmacy 04/25/23 [place] [address] [place] [address] Clinical Lab Assistant Pulmonary Disease 04/25/23 Rae Faulkner, ANDREW Dietitian Nutrition 04/26/23 Georgina Adam, RN Registered Nurse Family Medicine 05/02/23 Ella Prasad, HEALTH INFORMATION MANAGEMENT DIRECTOR Respiratory Therapist Respiratory Therapy 06/18/23 Elo Mercedes, HEALTH INFORMATION MANAGEMENT DIRECTOR Respiratory Therapist Respiratory Therapy 07/11/23 Roof Promenade Tile Setter Relationship Specialty Start Date End Date Mirian Greenwood MD Referring Physician Emergency Medicine 04/24/23 Marlen Marcelo, PharmD [phone] [place] [address] Pharmacist Pharmacy 04/25/23 [place] [address] [place] [address] Clinical Lab Assistant Pulmonary Disease 04/25/23 Rae Faulkner, ANDREW Dietitian Nutrition 04/26/23 Georgina Adam, RAMIRO Registered Nurse Family Medicine 05/02/23 Ella Prasad, HEALTH INFORMATION MANAGEMENT DIRECTOR Respiratory Therapist Respiratory Therapy 06/18/23 Elo Mercedes, HEALTH INFORMATION MANAGEMENT DIRECTOR Respiratory Therapist Respiratory Therapy 07/11/23 Roof Promenade Tile Setter Relationship Specialty Start Date End Date Mirian Greenwood MD Referring Physician Emergency Medicine 04/24/23 Marlen Marcelo, PharmD [address] [place] [address] Pharmacist Pharmacy 04/25/23 [place] [address] [place] [address] Clinical Lab Assistant Pulmonary Disease 04/25/[address] Dietitian Nutrition 04/26/23 Georgina Adam, RN Registered Nurse Family Medicine 05/02/23 Ella Prasad, HEALTH INFORMATION MANAGEMENT DIRECTOR Respiratory Therapist Respiratory Therapy 06/18/23 Elo Mercedes, HEALTH INFORMATION MANAGEMENT DIRECTOR Respiratory Therapist Respiratory Therapy 07/11/23 Roof Promenade Tile Setter Relationship Specialty Start Date End Date Mirian Greenwood MD Referring Physician Emergency Medicine 04/24/23 Marlen Marcelo, PharmD [address] [place] [address] Pharmacist Pharmacy 04/25/23 [place] [address] [place] [phone] Clinical Lab Assistant Pulmonary Disease 04/25/23 Rae Faulkner, ANDREW Dietitian Nutrition 04/26/23 Georgina Adam, RAMIRO Registered Nurse Family Medicine 05/02/23 Ella Prasad, HEALTH INFORMATION MANAGEMENT DIRECTOR Respiratory Therapist Respiratory Therapy 06/18/23 Elo Mercedes, HEALTH INFORMATION MANAGEMENT DIRECTOR Respiratory Therapist Respiratory Therapy 07/11/23 Roof [employer]enade Tile Setter Relationship Specialty Start Date End Date Mirian Greenwood MD Referring Physician Emergency Medicine 04/24/23 Marlen Marcelo, PharmD [address] [place] [address] Pharmacist Pharmacy 04/25/23 [place] [address] [place] [address] Clinical Lab Assistant Pulmonary Disease 04/25/23 Rae Faulkner, ANDREW Dietitian Nutrition 04/26/23 Georgina Adam, RAMIRO Registered Nurse Family Medicine 05/02/23 Ella Prasad, HEALTH INFORMATION MANAGEMENT DIRECTOR Respiratory Therapist Respiratory Therapy 06/18/23 Elo Mercedes, HEALTH INFORMATION MANAGEMENT DIRECTOR Respiratory Therapist Respiratory Therapy 07/11/23 FOR RECORDS PERTAINING TO PATIENTS WHO ARE OR HAVE BEEN ENROLLED IN A CHEMICAL DEPENDENCY/SUBSTANCEABUSE PROGRAM, SOME INFORMATION MAY BE OMITTED. This clinical summary was aggregated from multiple sources. Caution should be exercised in using it in the provision of clinical care. This summary normalizes information from multiple sources, and as a consequence, information in this document may materially change the coding, format and clinical context of patient data. In addition, data may be omitted in some cases. CLINICAL DECISIONS SHOULD BE BASED ON THE PRIMARY CLINICAL RECORDS. [facility] provides no warranty or guarantee of the accuracy or completeness of information in this document.
--- NOTE | 2023-10-15 02:14 | ED_ITS ---
HPI HPI - General Adult General Chief complaint: Back Pain/Injury Stated complaint: BACK PAIN Time Seen by Provider: 10/15/23 02:10 Source: patient Mode of arrival: walk-in Limitations: no limitations History of Present Illness HPI narrative: presents complaining of left flank pain radiating toward his groin. started around 8PM. No vomiting or urinary symptoms. Denies similar episodes in the past Related Data Home Medications ?Medication ?Instructions ?Recorded ?Confirmed insulin glargine 100 unit/mL (3 25 unit subcut BID 04/11/23 10/15/23 mL) subcutaneous pen (Basaglar KwikPen U-100 Insulin) [id number] 5 cap PO .WM 04/11/23 10/15/23 3,000-10,000-14,000 unit capsule,delayed rel (Zenpep) multivitamin (Daily Multi-Vitamin 1 tab PO DAILY 06/05/23 10/15/23 tablet) sulfamethoxazole 800 1 tab PO Q12H 10/15/23 10/15/23 mg-trimethoprim 160 mg tablet Previous Rx's ?Medication ?Instructions ?Recorded doxycycline hyclate 100 mg capsule 100 mg PO BID 12 days #24 caps 06/07/23 insulin lispro 100 unit/mL 1 sliding scale dose subcut 06/07/23 subcutaneous pen (Humalog KwikPen USEASDIRECTD #0 mL (U-100) Insulin) insulin regular human 100 unit/mL 1 sliding scale dose subcut 06/07/23 injection solution (Humulin R USEASDIRECTD #10 mL Regular U-100 Insulin) insulin syringe-needle U-100 1 mL #100 ea 06/07/23 29 gauge x 1/2 (Sure Comfort Insulin Syringe) Allergies Allergy/AdvReac Type Severity Reaction Status Date / Time No Known Drug Allergies Allergy Verified 10/15/23 01:45 Opioid HPI Opioid Management Most Recent Opioid Data: Ur Phencyclidine Scrn Negative (NEGATIVE) 06/05/23 09:53 Review of Systems ROS0 Status of ROS 10 or more systems reviewed and unremark able except as noted in history and below [facility] Medical History (Updated 10/15/23 @ 04:21 by Kike Hill MD) Type 2 diabetes mellitus with hyperglycemia ?E11.65 - Type 2 diabetes mellitus with hyperglycemia (ICD-10) Cystic fibrosis with liver disease ?E84.8 - Cystic fibrosis with other manifestations (ICD-10) ?K76.9 - Liver disease, unspecified (ICD-10) Nose polyp ?J33.9 - Nasal polyp, unspecified (ICD-10) Cystic fibrosis ?E84.9 - Cystic fibrosis, unspecified (ICD-10) Surgical History (Updated 06/05/23 @ 13:37 by Deana Hill) H/O left knee surgery ?Z98.890 - Other specified postprocedural states (ICD-10) History of hernia surgery ?Z98.890 - Other specified postprocedural states (ICD-10) ?Z87.19 - Personal history of other diseases of the digestive system (ICD-10) Family History (Updated 06/05/23 @ 13:33 by Deana Hill) Father Family history of COPD (chronic obstructive pulmonary disease) Family history of cancer Family history of diabetes mellitus Family history of hypertension Mother Family history of diabetes mellitus Family history of hypertension Sister Family history of hypertension Social History (Updated 06/05/23 @ 13:36 by Deana Hill) Within the past year, how often did you have a drink containing alcohol: never Score interpretation: A score less than 4 is consistent with normal alcohol consumption. Smoking status: Never smoker Non-prescribed substance use: cannabis (any form) Previous occupational history: [employer] Known occupational exposures/hazards: No Highest level of school completed/degree received: Associate degree: occupational, technical, vocational program Are you now , , , , never or living with a partner: In a typical week, how many times do you talk on the telephone with family, friends, or neighbors: 3 or more times per week How often do you get together with friends or relatives: 3 or more times per week How often do you attend mormonism or mandaeism services: never Do you belong to any clubs or organizations such as mormonism groups unions, fraternal or athletic groups, or school groups: no Total score: 1 Score interpretation: A score of less than or equal to 1 indicates the most socially isolated. Little interest or pleasure in doing things: not at all Feeling down, depressed, or hopeless: not at all Feel stressed/tense/nervous/anxious/difficulty sleeping: only a little Do you think of yourself as: straight/heterosexual Gender Identity: male Exam Constitutional Vital Signs, click to edit/add: Last Vital Signs Temp 98.4 F 10/15/23 01:45 Pulse 83 10/15/23 01:45 Resp 18 10/15/23 01:45 BP 162/94 H 10/15/23 01:45 Pulse Ox 97 10/15/23 01:45 O2 Del Method Room Air 10/15/23 01:45 Common normals: no apparent distress, average body habitus, oriented x3, no limitations, healthy appearing, alert and well nourished [facility] Common normals: normocephalic and head/scalp atraumatic Eye Common normals: PERRL, EOMs intact bilaterally and conjunctivae normal Respiratory Common normals: normal respiratory effort, no retractions, no use of accessory muscles and clear to auscultation bilaterally Cardio Common normals: regular rate, regular rhythm, S1 normal heart sound and S2 normal heart sound GI Common normals: Normal to inspection, nondistended, normoactive bowel sounds present Other: mild left flank tenderness Extremity Common normals: normal to inspection and full ROM Neuro Common normals: oriented x3, CN's II-XII intact bilaterally, moves all extremities and no focal motor deficits Psych Appearance: grossly normal Course Vital Signs Vital signs: Vital Signs Temperature 98.4 F 10/15/23 01:45 Pulse Rate 83 10/15/23 01:45 Respiratory Rate 18 10/15/23 01:45 Blood Pressure 162/94 H 10/15/23 01:45 Pulse Oximetry 97 10/15/23 01:45 Oxygen Delivery Method Room Air 10/15/23 01:45 Temperature 98.4 F 10/15/23 01:45 Pulse Rate 83 10/15/23 01:45 Respiratory Rate 18 10/15/23 01:45 Blood Pressure 162/94 H 10/15/23 01:45 Pulse Oximetry 97 10/15/23 01:45 Oxygen Delivery Method Room Air 10/15/23 01:45 Medical Decision Making [facility] Narrative Medical decision making narrative: patient presents with left flank pain radiating to his groin. CT with 7mm left distal ureter stone and mild hydronephrosis. CT also notes bilat small airway infection for which he is currently on Bactrim ds. UA without evidence of infection. Pain was relieved after Toradol 30mg IVP once. Patient is feeling better. Given dose of Flomax and discharged home to follow up with Urology . states he has at least 4 days left of antibiotic to take Lab Data Labs: Lab Results 10/15/23 10/15/23 Range/Units 02:41 03:39 WBC 10.2 (4.0-11.0) 10^3/uL RBC 4.73 (4.70-6.10) 10^6/uL Hgb 13.1 L (14.0-18.0) g/dL Hct 41.2 L (42.0-54.0) % MCV 87.1 (80.0-94.0) fL MCH 27.7 (25.9-34.0) pg MCHC 31.8 (29.9-35.2) g/dL RDW 12.8 (11.0-15.0) % Plt Count 292 (150-450) 10^3/uL MPV 9.2 L (9.5-13.5) fL Neut % (Auto) 63.4 (43.0-75.0) % Lymph % (Auto) 25.6 (20.5-60.0) % [place] % (Auto) 7.2 (1.7-12.0) % Eos % (Auto) 2.8 (0.9-7.0) % Baso % (Auto) 0.6 (0.2-2.0) % Neut # (Auto) 6.5 (1.4-6.5) 10^3/uL Lymph # (Auto) 2.6 (1.2-3.8) 10^3/uL [place] # (Auto) 0.7 (0.3-0.8) 10^3/uL Eos # (Auto) 0.3 (0.0-0.7) 10^3/uL Baso # (Auto) 0.1 (0.0-0.1) 10^3/uL Abs Immat Gran (auto) 0.04 H (0.00-0.03) 10^3/uL Imm/Tot Granulo (auto) 0.4 (0.0-0.5) % Sodium 136 (136-145) mmol/L Potassium 4.7 (3.5-5.1) mmol/L Chloride 101 (98-107) mmol/L Carbon Dioxide 26.5 (21.0-32.0) mmol/L Anion Gap 13.2 BUN 15.0 (7.0-18.0) mg/dL Creatinine 1.07 (0.70-1.30) mg/dL Est GFR ( Amer) >60 (>=60) Est GFR (Non-Af Amer) >60 (>=60) BUN/Creatinine Ratio 14.0 Glucose 356 H (74-106) mg/dL Calcium 8.6 (8.5-10.1) mg/dL Urine Color Yellow (YELLOW) Urine Clarity Clear (CLEAR) Urine pH 5.5 (5.0-9.0) Ur Specific [place] 1.025 (1.005-1.025) Urine Protein Negative (NEG/TRACE) mg/dL Urine Glucose (UA) >=1000 A (NEGATIVE) mg/dL Urine Ketones Negative (NEGATIVE) mg/dL Urine Occult Blood Large A (NEGATIVE) Urine Nitrite Negative (NEGATIVE) Urine Bilirubin Negative (NEGATIVE) Urine Urobilinogen 0.2 (0.2-1.0) EU/dL Ur Leukocyte Esterase Negative (NEGATIVE) Urine RBC >100 A (0-2) #/HPF Urine WBC 2-5 A (NONE SEEN) #/HPF Ur Squamous Epith Cells Many A (NONE/RARE) #/LPF Urine Crystals None seen (None Seen) #/HPF Urine Bacteria None seen (NONE SEEN) #/HPF Urine Casts None seen (NONE SEEN) #/LPF Urine Mucus Trace A (NONE SEEN) Urine Yeast Seen A (NONE SEEN) Ur Culture Indicated? No Imaging Data CT scan - abdomen: Radiologist's impression: ITS Impressions Abdomen/Pelvis CT 10/15/23 02:26 IMPRESSION: 1. Bibasilar tree-in-bud infiltrates compatible with small airway infection. 2. Mild left hydroureteronephrosis due to a 7 mm stone in the distal left ureter at the UVJ. Multiple additional bilateral renal calculi are noted with a single 2 mm stone in the right posterior urinary bladder. 3. Hepatic cirrhosis with mild portal venous hypertension and splenomegaly. Additional nonacute findings are described above. Electronically authenticated by: SAMIA APARICIO Date: 10/15/2023 03:20 Discharge Plan Discharge Stand Alone Forms: Portal Instructions Chief Complaint: Back Pain/Injury Clinical Impression: Renal colic Patient Disposition: Home, Self-Care Prescriptions / Home Meds: No Action multivitamin [Daily Multi-Vitamin] Tablet 1 tab PO DAILY Humulin R Regular U-100 Insuln 100 unit/mL solution 1 sliding scale dose subcut USEASDIRECTD Qty: 10 0RF Rx Instructions: May use in place of other short acting insulin based on affordability (DME) insulin syringe-needle U-100 [Sure Comfort Insulin Syringe] 1 mL 29 gauge x 1/2 syringe See Rx Instructions .Route Qty: 100 0RF Rx Instructions: As directed insulin lispro [Humalog KwikPen Insulin] 100 unit/mL insulin pen 1 sliding scale dose subcut USEASDIRECTD Qty: 0 0RF doxycycline hyclate 100 mg capsule 100 mg PO BID 12 Days Qty: 24 0RF Zenpep 3,000-10,000 -14,000-unit capsule,delayed release(DR/EC) 5 cap PO .WM Rx Instructions: 5-7 CAPS WITH MEALS AND 3 CAPS WITH SNACKS insulin glargine [Basaglar KwikPen U-100 Insulin] 100 unit/mL (3 mL) insulin pen 25 unit subcut BID sulfamethoxazole-trimethoprim 800-160 mg tablet 1 tab PO Q12H Print Language: Urdu Instructions: Renal Colic (ED) Additional Instructions: call Urology later today for an appointment in the next 2-3 days. Return if pain is not controlled or your develop nausea or fever Referrals: Physician,Non-Staff, [Primary Care Provider] - 1 week Paulo Childress MD [Physician] - As soon as possible Discharge Date/Time: 10/15/23 04:32
--- NOTE | 2023-10-15 02:26 | CT_ITS ---
The [address] [address] Patient Name: BRAVO ALBRECHT MRN: [id number] date: 1985 Sex: M Assigned Patient Location: ER Current Patient Location: Accession/Order Number: [id number] Exam Date: 10/15/2023 02:28 Report Date: 10/15/2023 03:20 At the request of: ARGENIS TA Procedure: CT abdomen pelvis wo con EXAM: CT abdomen pelvis wo con HISTORY: Acute left flank pain radiating into anterior abdomen. COMPARISON: None. TECHNIQUE: Nonenhanced CT imaging the abdomen and pelvis was performed with sagittal and coronal reconstructions. Dose reduction techniques were achieved by using automated exposure control and/or adjustment of mA and/or kV according to patient size and/or use of iterative reconstruction technique. FINDINGS: CT ABDOMEN: Bibasilar tree-in-bud infiltrates appear compatible with small airway infection. The imaged heart appears unremarkable. Cirrhotic liver morphology is noted, with mild portal venous hypertension seen as mild splenomegaly. The gallbladder and adrenal glands are unremarkable. There is complete fatty replacement of the pancreas. There is mild left hydroureteronephrosis due to a 7 mm distal left ureteral stone at the UVJ on image 137 of series 3. Multiple additional smaller bilateral renal calculi are noted. The kidneys are otherwise unremarkable. The aorta, IVC, stomach and small bowel appear unremarkable. CT PELVIS: A normal appendix is seen on image 90. The pelvic small bowel loops are unremarkable. There is moderate stool in the colon. There are dense calcifications of vas deferens. The prostate is mildly enlarged. There is a 2 mm stone in the right posterior urinary bladder on image 141. The urinary bladder is otherwise unremarkable. No inflammatory fat stranding, free fluid, loculated fluid or free air is seen in the abdomen or pelvis. No acute osseous abnormality or suspicious bony lesion is seen. CT/CT abdomen pelvis wo con IMPRESSION: 1. Bibasilar tree-in-bud infiltrates compatible with small airway infection. 2. Mild left hydroureteronephrosis due to a 7 mm stone in the distal left ureter at the UVJ. Multiple additional bilateral renal calculi are noted with a single 2 mm stone in the right posterior urinary bladder. 3. Hepatic cirrhosis with mild portal venous hypertension and splenomegaly. Additional nonacute findings are described above. Electronically authenticated by: SAMIA APARICIO Date: 10/15/2023 03:20
[2023-10-15] MEDS: 0.9 % SODIUM CHLORIDE 1,000 ML 999 ML IV (02:45)
[2023-10-15] MEDS: KETOROLAC TROMETHAMINE 30 MG/ML VIAL IVP (02:46)
[2023-10-15 02:57] LABS: Basophils Absolute Auto 0.1 10^3/uL (0.0-0.1); Basophils Percent Auto 0.6 % (0.2-2.0); Eosinophils Absolute Auto 0.3 10^3/uL (0.0-0.7); Eosinophils Percent Auto 2.8 % (0.9-7.0); Hematocrit 41.2 % (42.0-54.0); Hemoglobin 13.1 g/dL (14.0-18.0); Immature Granulocytes Abs Auto 0.04 10^3/uL (0.00-0.03); Immature Granulocytes Pct Auto 0.4 % (0.0-0.5); Lymphocytes Absolute Auto 2.6 10^3/uL (1.2-3.8); Lymphocytes Percent Auto 25.6 % (20.5-60.0); Mean Corpuscular HGB Conc 31.8 g/dL (29.9-35.2); Mean Corpuscular Hemoglobin 27.7 pg (25.9-34.0); Mean Corpuscular Volume 87.1 fL (80.0-94.0); Mean Platelet Volume 9.2 fL (9.5-13.5); Monocytes Absolute Auto 0.7 10^3/uL (0.3-0.8); Monocytes Percent Auto 7.2 % (1.7-12.0); Neutrophils Absolute Auto 6.5 10^3/uL (1.4-6.5); Neutrophils Percent Auto 63.4 % (43.0-75.0); Platelet Count 292 10^3/uL (150-450); Red Blood Count 4.73 10^6/uL (4.70-6.10); Red Cell Distribution Width 12.8 % (11.0-15.0); White Blood Count 10.2 10^3/uL (4.0-11.0)
[2023-10-15 03:11] LABS: Anion Gap 13.2; Calcium 8.6 mg/dL (8.5-10.1); Carbon Dioxide 26.5 mmol/L (21.0-32.0); Chloride 101 mmol/L (98-107); Estimated GFR (African America >60 (>=60); Estimated GFR (Non-African Ame >60 (>=60); Glucose 356 mg/dL (74-106); Potassium 4.7 mmol/L (3.5-5.1); Sodium 136 mmol/L (136-145)
[2023-10-15 03:44] LABS: Bilirubin Urine NEGATIVE (NEGATIVE); Blood Urine LARGE (NEGATIVE); Clarity Urine CLEAR (CLEAR); Color Urine YELLOW (YELLOW); Glucose Urine UA >=1000 mg/dL (NEGATIVE); Ketones Urine NEGATIVE (NEGATIVE); Leukocyte Esterase Urine NEGATIVE (NEGATIVE); Nitrite Urine NEGATIVE (NEGATIVE); Protein Urine NEGATIVE (NEG/TRACE); Specific Gravity Urine 1.025 (1.005-1.025); Urobilinogen Urine 0.2 EU/dL (0.2-1.0); pH Urine 5.5 (5.0-9.0)
[2023-10-15 03:47] LABS: Urine Microscopic Indicated YES
[2023-10-15 03:57] LABS: Bacteria Urine NONE SEEN #/HPF (NONE SEEN); Mucus Urine TRACE (NONE SEEN); RBC Urine >100 #/HPF (0-2)
[2023-10-15 03:58] LABS: Cast Seen? NONE SEEN #/LPF (NONE SEEN); Crystals Seen? None Seen #/HPF (None Seen); Squamous Epithelial Cell Urine MANY #/LPF (NONE/RARE); Urine Culture Indicated NO
[2023-10-15] MEDS: TAMSULOSIN HCL 0.4 MG CAPSULE 0.400000000000000022 MG PO (04:21)
--- NOTE | 2023-10-15 05:53 | ECG_ITS ---
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
== END 2023-10-15 04:32 | disposition home or self-care (01) ==
PROVIDERS: Emergency Provider Internal Medicine
DX: N13.2 Hydronephrosis with renal and ureteral calculous obstruction (principal); Z79.899 Other long term (current) drug therapy; Z79.4 Long term (current) use of insulin; E84.8 Cystic fibrosis with other manifestations; K76.9 Liver disease, unspecified; Z98.890 Other specified postprocedural states
CPT/HCPCS: 36415; 74176; 80048; 81001; 85025; 93005; 96374; 99285

== ENCOUNTER 2023-10-31 10:10 | Emergency (ER) | payer BC, SELFPAY ==
[2023-10-31] VITALS (20 sets, daily range): BP systolic 91–140; BP diastolic 63–90; PULSE 91–202; TEMP 36.5; O2SAT 94–99; BMI 23.7
--- NOTE | 2023-10-31 10:24 | ECG_ITS ---
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
[2023-10-31] MEDS: ADENOSINE 6 MG/2 ML VIAL IVP (10:32)
[2023-10-31] MEDS: 0.9 % SODIUM CHLORIDE 1,000 ML 999 ML IV (10:32)
--- NOTE | 2023-10-31 10:34 | ECG_ITS ---
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
--- NOTE | 2023-10-31 10:35 | ED.ARRPALP1 ---
HPI - Arrhythmia/Palpitations General Chief Complaint: Arrhythmia/Palpitations Stated Complaint: CHEST PAIN/ SOB Time Seen by Provider: 10/31/23 10:15 Source: patient and family Mode of arrival: Wheelchair Limitations: no limitations History of Present Illness HPI narrative: 30 minutes ago the patient suddenly felt palpitations, chest discomfort and shortness of breath. His HR was very fast . Prior history of SVT - no attacks/episodes for at least 6 years. No recent injury or illness. No associated GI or symptoms. He has cystic fibrosis - Said that he always has a cough. Related Data Home Medications ?Medication ?Instructions ?Recorded ?Confirmed insulin glargine 100 unit/mL (3 25 unit subcut BID 04/11/23 10/31/23 mL) subcutaneous pen (Basaglar KwikPen U-100 Insulin) [id number] 5 cap PO .WM 04/11/23 10/31/23 3,000-10,000-14,000 unit capsule,delayed rel (Zenpep) multivitamin (Daily Multi-Vitamin 1 tab PO DAILY 06/05/23 10/31/23 tablet) buspirone 5 mg tablet 5 mg PO DAILY 10/31/23 10/31/23 Previous Rx's ?Medication ?Instructions ?Recorded insulin lispro 100 unit/mL 1 sliding scale dose subcut 06/07/23 subcutaneous pen (Humalog KwikPen USEASDIRECTD #0 mL (U-100) Insulin) insulin regular human 100 unit/mL 1 sliding scale dose subcut 06/07/23 injection solution (Humulin R USEASDIRECTD #10 mL Regular U-100 Insulin) insulin syringe-needle U-100 1 mL #100 ea 06/07/23 29 gauge x 1/2 (Sure Comfort Insulin Syringe) Allergies Allergy/AdvReac Type Severity Reaction Status Date / Time No Known Drug Allergies Allergy Verified 10/15/23 01:45 [facility] Medical History (Updated 10/31/23 @ 10:43 by Primo Christian) Type 2 diabetes mellitus with hyperglycemia ?E11.65 - Type 2 diabetes mellitus with hyperglycemia (ICD-10) Cystic fibrosis with liver disease ?E84.8 - Cystic fibrosis with other manifestations (ICD-10) ?K76.9 - Liver disease, unspecified (ICD-10) Nose polyp ?J33.9 - Nasal polyp, unspecified (ICD-10) Cystic fibrosis ?E84.9 - Cystic fibrosis, unspecified (ICD-10) Surgical History (Updated 06/05/23 @ 13:37 by Deana Hill) H/O left knee surgery ?Z98.890 - Other specified postprocedural states (ICD-10) History of hernia surgery ?Z98.890 - Other specified postprocedural states (ICD-10) ?Z87.19 - Personal history of other diseases of the digestive system (ICD-10) Family History (Updated 06/05/23 @ 13:33 by Deana Hill) Father Family history of COPD (chronic obstructive pulmonary disease) Family history of cancer Family history of diabetes mellitus Family history of hypertension Mother Family history of diabetes mellitus Family history of hypertension Sister Family history of hypertension Social History (Updated 06/05/23 @ 13:36 by Deana Hill) Within the past year, how often did you have a drink containing alcohol: never Score interpretation: A score less than 4 is consistent with normal alcohol consumption. Smoking status: Never smoker Non-prescribed substance use: cannabis (any form) Previous occupational history: [employer] Known occupational exposures/hazards: No Highest level of school completed/degree received: Associate degree: occupational, technical, vocational program Are you now , , , , never or living with a partner: In a typical week, how many times do you talk on the telephone with family, friends, or neighbors: 3 or more times per week How often do you get together with friends or relatives: 3 or more times per week How often do you attend catholic or roman catholic services: never Do you belong to any clubs or organizations such as catholic groups unions, fraternal or athletic groups, or school groups: no Total score: 1 Score interpretation: A score of less than or equal to 1 indicates the most socially isolated. Little interest or pleasure in doing things: not at all Feeling down, depressed, or hopeless: not at all Feel stressed/tense/nervous/anxious/difficulty sleeping: only a little Do you think of yourself as: straight/heterosexual Gender Identity: male Exam Narrative Exam Narrative: Nurses notes and vital signs reviewed and patient is not hypoxic. afebrile General: Well-appearing and in no apparent distress. Skin: Warm, dry, no pallor noted. No rash. Eye: Pupils are equal, round and EOMI. No scleral icterus. Cardiovascular: Tachycardia Respiratory: No accessory muscle use or respiratory distress. Frequent cough. Lungs with scattered rhonchi Musculoskeletal: normal ROM, no calf or popliteal tenderness, no lower extremity edema/swelling GI: Abdomen is soft, non-distended. Normal bowel sounds. No tenderness to palpation. No rebound, guarding, or rigidity noted. Neurological: A&O x4. No cranial nerve dysfunction observed. No truncal ataxia. Moves all extremities. Sensation intact. Psychiatric: Cooperative and interactive. Normal mood and affect. Constitutional Vital Signs, click to edit/add: Last Vital Signs Temp 97.7 F 10/31/23 10:15 Pulse 97 H 10/31/23 11:19 Resp 38 H 10/31/23 11:19 BP 120/79 10/31/23 11:19 Pulse Ox 96 10/31/23 11:19 O2 Del Method Nasal Cannula 10/31/23 10:45 O2 Flow Rate 2 10/31/23 10:45 Course Vital Signs Vital signs: Vital Signs Temperature 97.7 F 10/31/23 10:15 Pulse Rate 198 H 10/31/23 10:15 Respiratory Rate 18 10/31/23 10:15 Blood Pressure 108/89 10/31/23 10:15 Pulse Oximetry 98 10/31/23 10:15 Oxygen Delivery Method Room Air 10/31/23 10:15 Temperature 97.7 F 10/31/23 10:15 Pulse Rate 97 H 10/31/23 11:19 Respiratory Rate 38 H 10/31/23 11:19 Blood Pressure 120/79 10/31/23 11:19 Pulse Oximetry 96 10/31/23 11:19 Oxygen Delivery Method Nasal Cannula 10/31/23 10:45 Oxygen Delivery Flow Rate 2 10/31/23 10:45 MDM - Arrhythmia/Palpitations MDM Narrative Medical decision making narrative: Patient was placed on cardiac rehab nurse and EKG obtained. He was found to have SVT. I asked that they move him from room 9 to room 5. Peripheral IVs were established x 2. The patient was given a 6 mg dose of adenosine and we had successful conversion from SVT with a rate of about 200 beats a minute to sinus tachycardia with a rate of about 100 beats a minute. Blood drawn and sent for evaluation. Portable chest x-ray obtained. He was given a liter of normal saline IV fluid. He felt better after adenosine was given and his HR improved. His workup was unremarkable and he was able to be discharged home still in NSR. Lab Data Attestation: I reviewed the patient's lab results. Labs: Lab Results 10/31/23 Range/Units 10:20 WBC 11.2 H (4.0-11.0) 10^3/uL RBC 5.01 (4.70-6.10) 10^6/uL Hgb 14.0 (14.0-18.0) g/dL Hct 43.6 (42.0-54.0) % MCV 87.0 (80.0-94.0) fL MCH 27.9 (25.9-34.0) pg MCHC 32.1 (29.9-35.2) g/dL RDW 12.9 (11.0-15.0) % Plt Count 256 (150-450) 10^3/uL MPV 10.2 (9.5-13.5) fL Neut % (Auto) 58.6 (43.0-75.0) % Lymph % (Auto) 28.0 (20.5-60.0) % [place] % (Auto) 8.8 (1.7-12.0) % Eos % (Auto) 3.4 (0.9-7.0) % Baso % (Auto) 0.8 (0.2-2.0) % Neut # (Auto) 6.6 H (1.4-6.5) 10^3/uL Lymph # (Auto) 3.1 (1.2-3.8) 10^3/uL [place] # (Auto) 1.0 H (0.3-0.8) 10^3/uL Eos # (Auto) 0.4 (0.0-0.7) 10^3/uL Baso # (Auto) 0.1 (0.0-0.1) 10^3/uL Abs Immat Gran (auto) 0.04 H (0.00-0.03) 10^3/uL Imm/Tot Granulo (auto) 0.4 (0.0-0.5) % Sodium 136 (136-145) mmol/L Potassium 4.8 (3.5-5.1) mmol/L Chloride 100 (98-107) mmol/L Carbon Dioxide 27.6 (21.0-32.0) mmol/L Anion Gap 13.2 BUN 12.0 (7.0-18.0) mg/dL Creatinine 0.94 (0.70-1.30) mg/dL Est GFR ( Amer) >60 (>=60) Est GFR (Non-Af Amer) >60 (>=60) BUN/Creatinine Ratio 12.8 Glucose 326 H (74-106) mg/dL Calcium 9.2 (8.5-10.1) mg/dL Phosphorus 3.7 (2.6-4.7) mg/dL Magnesium 1.9 (1.8-2.4) mg/dL Troponin I High Sens <4.0 L (4.0-76.1) pg/mL NT-Pro-B Natriuret Pep 39.0 (<=450.0) pg/mL Imaging Data Chest x-ray: Attestation: I personally reviewed and interpreted this imaging study as follows: My impression: NAD ECG Data Attestation: I personally reviewed and interpreted this ECG as follows: Interpretation: #1 EKG = EKG interpretation: Emergency Department physician interpretation. SVT #2 EKG = EKG interpretation: Emergency Department physician interpretation. Sinus tachycardia at 102bpm. Normal axis, normal intervals and no ST segment elevation or depression.. Discharge Plan Discharge Stand Alone Forms: Portal Instructions Chief Complaint: Arrhythmia/Palpitations Clinical Impression: Supraventricular tachycardia Patient Disposition: Home, Self-Care Time of Disposition Decision: 12:11 Prescriptions / Home Meds: No Action multivitamin [Daily Multi-Vitamin] Tablet 1 tab PO DAILY Humulin R Regular U-100 Insuln 100 unit/mL solution 1 sliding scale dose subcut USEASDIRECTD Qty: 10 0RF Rx Instructions: May use in place of other short acting insulin based on affordability (DME) insulin syringe-needle U-100 [Sure Comfort Insulin Syringe] 1 mL 29 gauge x 1/2 syringe See Rx Instructions .Route Qty: 100 0RF Rx Instructions: As directed insulin lispro [Humalog KwikPen Insulin] 100 unit/mL insulin pen 1 sliding scale dose subcut USEASDIRECTD Qty: 0 0RF buspirone 5 mg tablet 5 mg PO DAILY Zenpep 3,000-10,000 -14,000-unit capsule,delayed release(DR/EC) 5 cap PO .WM Rx Instructions: 5-7 CAPS WITH MEALS AND 3 CAPS WITH SNACKS insulin glargine [Basaglar KwikPen U-100 Insulin] 100 unit/mL (3 mL) insulin pen 25 unit subcut BID Print Language: Romanian Instructions: Supraventricular Tachycardia (ED) Referrals: Physician,Non-Staff, MD [Primary Care Provider] - 1 week
[2023-10-31] MEDS: LORAZEPAM 2 MG/ML VIAL 0.5 MG IV (10:40)
[2023-10-31 10:44] LABS: Basophils Absolute Auto 0.1 10^3/uL (0.0-0.1); Basophils Percent Auto 0.8 % (0.2-2.0); Eosinophils Absolute Auto 0.4 10^3/uL (0.0-0.7); Eosinophils Percent Auto 3.4 % (0.9-7.0); Hematocrit 43.6 % (42.0-54.0); Immature Granulocytes Abs Auto 0.04 10^3/uL (0.00-0.03); Immature Granulocytes Pct Auto 0.4 % (0.0-0.5); Lymphocytes Absolute Auto 3.1 10^3/uL (1.2-3.8); Mean Corpuscular HGB Conc 32.1 g/dL (29.9-35.2); Mean Corpuscular Hemoglobin 27.9 pg (25.9-34.0); Mean Platelet Volume 10.2 fL (9.5-13.5); Monocytes Percent Auto 8.8 % (1.7-12.0); Neutrophils Absolute Auto 6.6 10^3/uL (1.4-6.5); Neutrophils Percent Auto 58.6 % (43.0-75.0); Platelet Count 256 10^3/uL (150-450); Red Blood Count 5.01 10^6/uL (4.70-6.10); Red Cell Distribution Width 12.9 % (11.0-15.0); White Blood Count 11.2 10^3/uL (4.0-11.0)
[2023-10-31 11:04] LABS: Anion Gap 13.2; BUN Creatinine Ratio 12.8; Calcium 9.2 mg/dL (8.5-10.1); Carbon Dioxide 27.6 mmol/L (21.0-32.0); Chloride 100 mmol/L (98-107); Estimated GFR (African America >60 (>=60); Estimated GFR (Non-African Ame >60 (>=60); Glucose 326 mg/dL (74-106); Magnesium 1.9 mg/dL (1.8-2.4); Phosphorus 3.7 mg/dL (2.6-4.7); Potassium 4.8 mmol/L (3.5-5.1); Sodium 136 mmol/L (136-145); Troponin I High Sensitivity <4.0 pg/mL (4.0-76.1)
--- NOTE | 2023-10-31 11:10 | XR_ITS ---
The [address] [address] Patient Name: BRAVO ALBRECHT MRN: [id number] date: 1985 Sex: M Assigned Patient Location: ER Current Patient Location: ED.MAIN Accession/Order Number: [id number] Exam Date: 10/31/2023 11:20 Report Date: 10/31/2023 12:17 At the request of: MARINE GREEN Procedure: XR chest 1V EXAM: XR chest 1V HISTORY: svt COMPARISON: None. TECHNIQUE: AP view of the chest. FINDINGS: The cardiomediastinal silhouette is normal. The lungs are clear. There is no pneumothorax. No pleural effusion is noted. The osseous structures are intact. XR/XR chest 1V IMPRESSION: No acute cardiopulmonary process. Electronically authenticated by: TERA BOWMAN Date: 10/31/2023 12:17
== END 2023-10-31 12:32 | disposition home or self-care (01) ==
PROVIDERS: Emergency Provider Emergency Medicine
DX: I47.10 Supraventricular tachycardia, unspecified (principal); F12.90 Cannabis use, unspecified, uncomplicated; Z98.890 Other specified postprocedural states; E84.8 Cystic fibrosis with other manifestations; E11.9 Type 2 diabetes mellitus without complications; K76.9 Liver disease, unspecified; Z79.899 Other long term (current) drug therapy; Z79.4 Long term (current) use of insulin; R06.02 Shortness of breath
CPT/HCPCS: 36415; 71045; 80048; 83735; 83880; 84100; 84484; 85025; 93005; 96374; 96375; 99285

== ENCOUNTER 2024-03-08 08:47 | Emergency (ER) | payer BC, SELFPAY ==
[2024-03-08] VITALS (10 sets, daily range): BP systolic 101–125; BP diastolic 68–84; PULSE 101–194; O2SAT 94–99; BMI 27.3
[2024-03-08] MEDS: ADENOSINE 6 MG/2 ML VIAL IVP (09:15)
--- NOTE | 2024-03-08 09:15 | ECG_ITS ---
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
--- NOTE | 2024-03-08 09:15 | ED_ITS ---
HPI - Chest Pain General Chief Complaint: Chest Pain Stated Complaint: CHEST PAIN SOB Time Seen by Provider: 03/08/24 08:54 Source: patient and family Mode of arrival: walk-in History of Present Illness HPI narrative: This patient is here with discomfort and fluttering in his chest. It started at work after he went to work. Before he went to work he felt fine today. I reviewed medical records while there putting the patient on the monitor and he has a history of SVT. As it turns out he was here several months ago and needed adenacard for cardioversion. He is not on any medic cardiac medicine. He had previously seen a offshore wind operations manager in [facility] and had some testing and they were told that everything was normal. They did talk to them about ablation. He has had several episodes at home but he was able to abort himself with Valsalva maneuvers. He is not known to have any coronary artery disease. He does have a history of cystic fibrosis. He is not on any adrenergic meds or [id number] stimulants. He does not use weight loss pills, energy pills or any type of stimulants. Denies any marijuana or illicit drugs of cocaine. He did have a sixpack of beer last night at a family celebration. Related Data Home Medications ?Medication ?Instructions ?Recorded ?Confirmed insulin glargine 100 unit/mL (3 25 unit subcut BID 04/11/23 03/08/24 mL) subcutaneous pen (Basaglar KwikPen U-100 Insulin) [id number] 5 cap PO .WM 04/11/23 03/08/24 3,000-10,000-14,000 unit capsule,delayed rel (Zenpep) multivitamin (Daily Multi-Vitamin 1 tab PO DAILY 06/05/23 03/08/24 tablet) buspirone 5 mg tablet 5 mg PO DAILY 10/31/23 10/31/23 Previous Rx's ?Medication ?Instructions ?Recorded insulin lispro 100 unit/mL 1 sliding scale dose subcut 06/07/23 subcutaneous pen (Humalog KwikPen USEASDIRECTD #0 mL (U-100) Insulin) insulin regular human 100 unit/mL 1 sliding scale dose subcut 06/07/23 injection solution (Humulin R USEASDIRECTD #10 mL Regular U-100 Insulin) insulin syringe-needle U-100 1 mL #100 ea 06/07/23 29 gauge x 1/2 (Sure Comfort Insulin Syringe) Allergies Allergy/AdvReac Type Severity Reaction Status Date / Time No Known Drug Allergies Allergy Verified 10/15/23 01:45 [facility] Medical History (Updated 03/08/24 @ 10:11 by Dio Chandler MD) Type 2 diabetes mellitus with hyperglycemia ?E11.65 - Type 2 diabetes mellitus with hyperglycemia (ICD-10) Cystic fibrosis with liver disease ?E84.8 - Cystic fibrosis with other manifestations (ICD-10) ?K76.9 - Liver disease, unspecified (ICD-10) Nose polyp ?J33.9 - Nasal polyp, unspecified (ICD-10) Cystic fibrosis ?E84.9 - Cystic fibrosis, unspecified (ICD-10) Surgical History (Updated 06/05/23 @ 13:37 by Deana Hill) H/O left knee surgery ?Z98.890 - Other specified postprocedural states (ICD-10) History of hernia surgery ?Z98.890 - Other specified postprocedural states (ICD-10) ?Z87.19 - Personal history of other diseases of the digestive system (ICD-10) Family History (Updated 06/05/23 @ 13:33 by Deana Hill) Father Family history of COPD (chronic obstructive pulmonary disease) Family history of cancer Family history of diabetes mellitus Family history of hypertension Mother Family history of diabetes mellitus Family history of hypertension Sister Family history of hypertension Social History (Updated 06/05/23 @ 13:36 by Deana Hill) Within the past year, how often did you have a drink containing alcohol: never Score interpretation: A score less than 4 is consistent with normal alcohol consumption. Smoking status: Never smoker Non-prescribed substance use: cannabis (any form) Previous occupational history: [employer] Known occupational exposures/hazards: No Highest level of school completed/degree received: Associate degree: occupational, technical, vocational program Are you now , , , , never or living with a partner: In a typical week, how many times do you talk on the telephone with family, friends, or neighbors: 3 or more times per week How often do you get together with friends or relatives: 3 or more times per week How often do you attend restorationist or lutheran services: never Do you belong to any clubs or organizations such as restorationist groups unions, fraternal or athletic groups, or school groups: no Total score: 1 Score interpretation: A score of less than or equal to 1 indicates the most socially isolated. Little interest or pleasure in doing things: not at all Feeling down, depressed, or hopeless: not at all Feel stressed/tense/nervous/anxious/difficulty sleeping: only a little Do you think of yourself as: straight/heterosexual Gender Identity: male Exam Narrative Exam Narrative: Patient was seen immediately on arrival and placed on a monitor. Cardiac rhythm is tachycardic with a twelve-lead EKG suggestive of SVT. He is maintaining his blood pressure he is awake alert he is not confused there is no respiratory distress his skin is warm and dry there is no diaphoresis or pallor. He had no respiratory distress his lungs were clear heart sounds were tachycardic. Peripheral perfusion extremities is normal. Constitutional Vital Signs, click to edit/add: Last Vital Signs Pulse 101 H 03/08/24 09:40 Resp 22 H 03/08/24 09:40 BP 103/71 03/08/24 09:30 Pulse Ox 94 L 03/08/24 09:40 O2 Del Method Room Air 03/08/24 08:52 Course Vital Signs Vital signs: Vital Signs Pulse Rate 194 H 03/08/24 08:52 Respiratory Rate 20 03/08/24 08:52 Blood Pressure 101/70 03/08/24 08:52 Pulse Oximetry 99 03/08/24 08:52 Oxygen Delivery Method Room Air 03/08/24 08:52 Pulse Rate 101 H 03/08/24 09:40 Respiratory Rate 22 H 03/08/24 09:40 Blood Pressure 103/71 03/08/24 09:30 Pulse Oximetry 94 L 03/08/24 09:40 Oxygen Delivery Method Room Air 03/08/24 08:52 MDM - Chest Pain MDM Narrative Medical decision making narrative: 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 There is a failed intravenous attempt by the staff but we did obtain venous access in his right forearm. 6 mg of Adenocard were given with his permission. He has been through this before so understands the sensation. Immediately upon giving the adenacard he had conversion to a sinus rhythm. We will observe him for approximately 1 hour. I do not believe laboratory testing is necessary. He did check his blood sugar at home and it was normal before he came to the hospital He was observed until 1015 stated in his rhythm. He will be discharged to follow-up with cardiology. Discharge Plan Discharge Stand Alone Forms: Work/School Release, Portal Instructions Chief Complaint: Chest Pain Clinical Impression: Supraventricular tachycardia Patient Disposition: Home, Self-Care Time of Disposition Decision: 10:10 Prescriptions / Home Meds: No Action multivitamin [Daily Multi-Vitamin] Tablet 1 tab PO DAILY Humulin R Regular U-100 Insuln 100 unit/mL solution 1 sliding scale dose subcut USEASDIRECTD Qty: 10 0RF Rx Instructions: May use in place of other short acting insulin based on affordability (DME) insulin syringe-needle U-100 [Sure Comfort Insulin Syringe] 1 mL 29 gauge x 1/2 syringe See Rx Instructions .Route Qty: 100 0RF Rx Instructions: As directed insulin lispro [Humalog KwikPen Insulin] 100 unit/mL insulin pen 1 sliding scale dose subcut USEASDIRECTD Qty: 0 0RF buspirone 5 mg tablet 5 mg PO DAILY Zenpep 3,000-10,000 -14,000-unit capsule,delayed release(DR/EC) 5 cap PO .WM Rx Instructions: 5-7 CAPS WITH MEALS AND 3 CAPS WITH SNACKS insulin glargine [Basaglar KwikPen U-100 Insulin] 100 unit/mL (3 mL) insulin pen 25 unit subcut BID Print Language: Thai Additional Instructions: Avoid further alcohol. Follow-up with your offshore wind operations manager or Dr. de la torre Referrals: Physician,Non-Staff, MD [Primary Care Provider] - 1 week
--- NOTE | 2024-03-08 14:09 | ECG_ITS ---
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
== END 2024-03-08 10:24 | disposition home or self-care (01) ==
PROVIDERS: Emergency Provider Emergency Medicine Emergency Medical Services
DX: I47.10 Supraventricular tachycardia, unspecified (principal)
CPT/HCPCS: 93005; 96374; 99284

== ENCOUNTER 2024-08-26 09:33 | Emergency (ER) | payer BC, SELFPAY ==
[2024-08-26 09:43] VITALS: BP 178/105; PULSE 72; TEMP 36.5; O2SAT 100; BMI 27.1
--- NOTE | 2024-08-26 09:53 | ED_ITS ---
HPI HPI - General Adult General Chief complaint: Abdominal Pain Stated complaint: RIGHT FLANK PAIN Time Seen by Provider: 08/26/24 09:46 Source: patient Mode of arrival: walk-in Limitations: no limitations History of Present Illness HPI narrative: 39-year-old male to the emergency department with chief complaint of right-sided flank pain. Patient reports sudden onset of right-sided flank pain at 8 AM. He has previous kidney stones with similar presentation. He reports some mild nausea without vomiting. No fever, sweats, chills. No blood in the urine, dysuria, urgency, frequency. He has been moving his bowels without difficulty. Otherwise at his baseline health. He reports kidney stones in the past that have not required intervention. Past medical history: Diabetes, kidney stones, supraventricular tachycardia, cystic fibrosis Related Data Home Medications ?Medication ?Instructions ?Recorded ?Confirmed insulin glargine 100 unit/mL (3 25 unit subcut BID 04/11/23 03/08/24 mL) subcutaneous pen (Basaglar KwikPen U-100 Insulin) [id number] 5 cap PO .WM 04/11/23 03/08/24 3,000-10,000-14,000 unit capsule,delayed rel (Zenpep) multivitamin (Daily Multi-Vitamin 1 tab PO DAILY 06/05/23 03/08/24 tablet) buspirone 5 mg tablet 5 mg PO DAILY 10/31/23 10/31/23 Previous Rx's ?Medication ?Instructions ?Recorded insulin lispro 100 unit/mL 1 sliding scale dose subcut 06/07/23 subcutaneous pen (Humalog KwikPen USEASDIRECTD #0 mL (U-100) Insulin) insulin regular human 100 unit/mL 1 sliding scale dose subcut 06/07/23 injection solution (Humulin R USEASDIRECTD #10 mL Regular U-100 Insulin) insulin syringe-needle U-100 1 mL #100 ea 06/07/23 29 gauge x 1/2 (Sure Comfort Insulin Syringe) naproxen 500 mg tablet 500 mg PO BID PRN pain #14 tabs 08/26/24 ondansetron 4 mg disintegrating 4 mg PO Q8H PRN nausea and 08/26/24 tablet vomiting 4 days #16 tabs oxycodone-acetaminophen 5 mg-325 1 tab PO Q6H PRN pain 3 days #12 08/26/24 mg tablet (Percocet) tabs tamsulosin 0.4 mg capsule (Flomax) 0.4 mg PO DAILY #14 caps 08/26/24 Allergies Allergy/AdvReac Type Severity Reaction Status Date / Time No Known Drug Allergies Allergy Verified 08/26/24 09:43 Opioid HPI Opioid Management Most Recent Opioid Data: Last Pain Scale 9 08/26/24 10:08 08/26/24 Last MAR Pain Assessment 08/26/24 10:08 Ur Phencyclidine Scrn Negative (NEGATIVE) 06/05/23 09:53 05/09 03/30 Review of Systems ROS Status of ROS 10 or more systems reviewed and unremark able except as noted in history and below [facility] Medical History (Updated 08/26/24 @ 10:50 by Jose Antonio Rosado MD) Type 2 diabetes mellitus with hyperglycemia ?E11.65 - Type 2 diabetes mellitus with hyperglycemia (ICD-10) Cystic fibrosis with liver disease ?E84.8 - Cystic fibrosis with other manifestations (ICD-10) ?K76.9 - Liver disease, unspecified (ICD-10) Nose polyp ?J33.9 - Nasal polyp, unspecified (ICD-10) Cystic fibrosis ?E84.9 - Cystic fibrosis, unspecified (ICD-10) Surgical History (Updated 06/05/23 @ 13:37 by Deana Hill) H/O left knee surgery ?Z98.890 - Other specified postprocedural states (ICD-10) History of hernia surgery ?Z98.890 - Other specified postprocedural states (ICD-10) ?Z87.19 - Personal history of other diseases of the digestive system (ICD-10) Family History (Updated 06/05/23 @ 13:33 by Deana Hill) Father Family history of COPD (chronic obstructive pulmonary disease) Family history of cancer Family history of diabetes mellitus Family history of hypertension Mother Family history of diabetes mellitus Family history of hypertension Sister Family history of hypertension Social History (Updated 06/05/23 @ 13:36 by Deana Hill) Within the past year, how often did you have a drink containing alcohol: never Score interpretation: A score less than 4 is consistent with normal alcohol consumption. 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 Known occupational exposures/hazards: No Highest level of school completed/degree received: Associate degree: occupational, technical, vocational program Are you now , , , , never or living with a partner: In a typical week, how many times do you talk on the telephone with family, friends, or neighbors: 3 or more times per week How often do you get together with friends or relatives: 3 or more times per week How often do you attend christian or tenriism services: never Do you belong to any clubs or organizations such as christian groups unions, fraternal or athletic groups, or school groups: no Total score: 1 Score interpretation: A score of less than or equal to 1 indicates the most socially isolated. Little interest or pleasure in doing things: not at all Feeling down, depressed, or hopeless: not at all Feel stressed/tense/nervous/anxious/difficulty sleeping: only a little Do you think of yourself as: straight/heterosexual Gender Identity: male Exam Narrative Exam Narrative: VITALS: I have reviewed the triage vital signs. GENERAL: Uncomfortable adult male holding right flank NEURO: Alert and oriented. Moves all extremities. Face is symmetric and expressive. EYES: PERRL. No scleral icterus or conjunctival injection. No discharge. HENT: Normocephalic, atraumatic. Hearing is grossly intact. Nares grossly patent and without discharge. Mucous membranes moist. NECK: No JVD. Patient moves neck without restriction. CARDIO: Rhythm regular. Normal rate. No murmur, rub, or gallop. Pulses equal bilaterally in the upper and lower extremity. No lower extremity edema. PULM: Lungs clear to auscultation in all hirsch. No wheezes, rales, or rhonchi. No conversational dyspnea. No splinting, stridor, or accessory muscle use. GI/: Abdomen is soft and non-tender. Normoactive bowel sounds. EXTREMITIES: Symmetric muscle bulk. No joint swelling. No clubbing, cyanosis, or deformity. SKIN: Warm and dry. Normal turgor. No rash or lesions appreciated. PSYCH: Mood, affect, and interaction is appropriate to the setting. Constitutional Vital Signs, click to edit/add: Last Vital Signs Temp 97.7 F 08/26/24 09:43 Pulse 72 08/26/24 09:43 Resp 20 08/26/24 09:43 BP 178/105 H 08/26/24 09:43 Pulse Ox 100 08/26/24 09:43 O2 Del Method Room Air 08/26/24 09:43 Course Vital Signs Vital signs: Vital Signs Temperature 97.7 F 08/26/24 09:43 Pulse Rate 72 08/26/24 09:43 Respiratory Rate 20 08/26/24 09:43 Blood Pressure 178/105 H 08/26/24 09:43 Pulse Oximetry 100 08/26/24 09:43 Oxygen Delivery Method Room Air 08/26/24 09:43 Temperature 97.7 F 08/26/24 09:43 Pulse Rate 72 08/26/24 09:43 Respiratory Rate 20 08/26/24 09:43 Blood Pressure 178/105 H 08/26/24 09:43 Pulse Oximetry 100 08/26/24 09:43 Oxygen Delivery Method Room Air 08/26/24 09:43 Medical Decision Making MDM Narrative Medical decision making narrative: 39-year-old male to the emergency department chief complaint of acute onset of right flank pain similar to past kidney stones. Vital stable, the patient is afebrile. Basic labs, noncontrasted CT, urinalysis are ordered. Toradol, Zofran, hydromorphone for symptom control. Ordered. Patient agrees with this plan. Lab work reviewed and noted. No major abnormalities. Chronic hyperglycemia, reports he did not adhere to his diabetic diet this morning. He will continue his insulin management at home appropriately given this knowledge. He reports his blood glucose typically in the 300s. No evidence of DKA. CT scan radiology report notes a 4.6 mm right sided calculus at the UVJ with moderate right hydronephrosis and hydroureter. Other nonemergent findings he will be referred to primary care for follow-up on. They note prominent size of an otherwise normal-appearing appendix, the patient has no right lower quadrant tenderness. His symptoms are well-controlled. Will send home on Flomax, Percocet as needed, naproxen, Zofran. Urine strainer. Follow-up with urology. Patient was discharged home. Medical Records Medical records reviewed: Yes I reviewed the patient's medical records Lab Data Lab results reviewed: Yes I reviewed the patient's lab results Labs: Lab Results 08/26/24 08/26/24 Range/Units 09:54 10:36 WBC 6.6 (4.0-11.0) 10^3/uL RBC 4.94 (4.70-6.10) 10^6/uL Hgb 15.3 (14.0-18.0) g/dL Hct 43.6 (42.0-54.0) % MCV 88.3 (80.0-94.0) fL MCH 31.0 (25.9-34.0) pg MCHC 35.1 (29.9-35.2) g/dL RDW 11.7 (11.0-15.0) % Plt Count 210 (150-450) 10^3/uL MPV 9.6 (9.5-13.5) fL Neut % (Auto) 56.2 (43.0-75.0) % Lymph % (Auto) 31.8 (20.5-60.0) % [place] % (Auto) 6.1 (1.7-12.0) % Eos % (Auto) 4.8 (0.9-7.0) % Baso % (Auto) 0.9 (0.2-2.0) % Neut # (Auto) 3.7 (1.4-6.5) 10^3/uL Lymph # (Auto) 2.1 (1.2-3.8) 10^3/uL [place] # (Auto) 0.4 (0.3-0.8) 10^3/uL Eos # (Auto) 0.3 (0.0-0.7) 10^3/uL Baso # (Auto) 0.1 (0.0-0.1) 10^3/uL Abs Immat Gran (auto) 0.01 (0.00-0.03) 10^3/uL Imm/Tot Granulo (auto) 0.2 (0.0-0.5) % Sodium 137 (136-145) mmol/L Potassium 4.1 (3.5-5.1) mmol/L Chloride 99 (98-107) mmol/L Carbon Dioxide 27.8 (21.0-32.0) mmol/L Anion Gap 14.3 BUN 13.0 (7.0-18.0) mg/dL Creatinine 1.20 (0.70-1.30) mg/dL Est GFR ( Amer) >60 (>=60 mL/min/1.73m^2) Est GFR (Non-Af Amer) >60 (>=60 mL/min/1.73m^2) BUN/Creatinine Ratio 10.8 Glucose 394 H (74-106) mg/dL Calcium 9.3 (8.5-10.1) mg/dL Urine Color Yellow (YELLOW) Urine Clarity Clear (CLEAR) Urine pH 6.0 (5.0-9.0) Ur Specific [place] 1.025 (1.005-1.025) Urine Protein Trace (NEG/TRACE) mg/dL Urine Glucose (UA) >=1000 A (NEGATIVE) mg/dL Urine Ketones Negative (NEGATIVE) mg/dL Urine Occult Blood Negative (NEGATIVE) Urine Nitrite Negative (NEGATIVE) Urine Bilirubin Negative (NEGATIVE) Urine Urobilinogen 0.2 (0.2-1.0) EU/dL Ur Leukocyte Esterase Negative (NEGATIVE) Urine RBC 0-2 (0-2) #/HPF Urine WBC 2-5 A (NONE SEEN) #/HPF Ur Squamous Epith Cells Few A (NONE/RARE) #/LPF Urine Crystals None seen (None Seen) #/HPF Urine Bacteria Trace A (NONE SEEN) #/HPF Urine Casts None seen (NONE SEEN) #/LPF Urine Mucus Moderate A (NONE SEEN) Imaging Data CT scan - abdomen: Attestation: I have reviewed the pertinent imaging results. Radiologist's impression: See separate document in PACS. Discharge Plan Discharge Chief Complaint: Abdominal Pain Clinical Impression: Renal colic Patient Disposition: Home, Self-Care Time of Disposition Decision: 10:50 Condition: Good Mode of Transportation: Private Vehicle Prescriptions / Home Meds: New tamsulosin [Flomax] 0.4 mg capsule 0.4 mg PO DAILY Qty: 14 0RF ondansetron 4 mg tablet,disintegrating 4 mg PO Q8H PRN (Reason: nausea and vomiting) 4 Days Qty: 16 0RF naproxen 500 mg tablet 500 mg PO BID PRN (Reason: pain) Qty: 14 0RF oxycodone-acetaminophen [Percocet] 5-325 mg tablet 1 tab PO Q6H PRN (Reason: pain) 3 Days Qty: 12 0RF No Action multivitamin [Daily Multi-Vitamin] Tablet 1 tab PO DAILY Humulin R Regular U-100 Insuln 100 unit/mL solution 1 sliding scale dose subcut USEASDIRECTD Qty: 10 0RF Rx Instructions: May use in place of other short acting insulin based on affordability (DME) insulin syringe-needle U-100 [Sure Comfort Insulin Syringe] 1 mL 29 gauge x 1/2 syringe See Rx Instructions .Route Qty: 100 0RF Rx Instructions: As directed insulin lispro [Humalog KwikPen Insulin] 100 unit/mL insulin pen 1 sliding scale dose subcut USEASDIRECTD Qty: 0 0RF buspirone 5 mg tablet 5 mg PO DAILY Zenpep 3,000-10,000 -14,000-unit capsule,delayed release(DR/EC) 5 cap PO .WM Rx Instructions: 5-7 CAPS WITH MEALS AND 3 CAPS WITH SNACKS insulin glargine [Basaglar KwikPen U-100 Insulin] 100 unit/mL (3 mL) insulin pen 25 unit subcut BID Print Language: Greenlandic Instructions: Renal Colic (ED), Diabetic Hyperglycemia (ED) Additional Instructions: Call the office of your primary care doctor to arrange for follow-up within the above-stated timeframe. Your ED visit was focused on your acute issue and does not replace primary care. You should review your labs, imaging, and diagnoses from this ED visit with your primary care physician. There may be non-emergent/ incidental findings that need further evaluation. You should review your vital signs including blood pressure with your PCP. If you were prescribed medications you should discuss possible side-effects and drug interactions with your pharmacist. Call 911 or go to the nearest Emergency Department if you develop any new or worsening symptoms. Seek immediate medical attention if you develop: worsening abdominal pain, new or worsening nausea, new or worsening vomiting, new or worsening diarrhea, chest pain, shortness of breath, pain with urination, problems urinating, fever, chills, weakness, or any new or worsening symptoms. Strain urine so we know when stone passes. Referrals: Luis Antonio Khan MD [Physician] - 1 week (Follow-up with your doctor or the [address] scan findings of nodular contour of the liver, constipation may need follow-up. Your blood glucose was high today which appears to be chronic for you. Follow-up with whomever manages your insulin to discuss your chronically elevated blood glucose level.) Physician,Non-Staff, [Primary Care Provider] - 1 week
[2024-08-26 10:06] LABS: Basophils Absolute Auto 0.1 10^3/uL (0.0-0.1); Basophils Percent Auto 0.9 % (0.2-2.0); Eosinophils Absolute Auto 0.3 10^3/uL (0.0-0.7); Eosinophils Percent Auto 4.8 % (0.9-7.0); Hematocrit 43.6 % (42.0-54.0); Hemoglobin 15.3 g/dL (14.0-18.0); Immature Granulocytes Abs Auto 0.01 10^3/uL (0.00-0.03); Immature Granulocytes Pct Auto 0.2 % (0.0-0.5); Lymphocytes Absolute Auto 2.1 10^3/uL (1.2-3.8); Lymphocytes Percent Auto 31.8 % (20.5-60.0); Mean Corpuscular HGB Conc 35.1 g/dL (29.9-35.2); Mean Corpuscular Volume 88.3 fL (80.0-94.0); Mean Platelet Volume 9.6 fL (9.5-13.5); Monocytes Absolute Auto 0.4 10^3/uL (0.3-0.8); Monocytes Percent Auto 6.1 % (1.7-12.0); Neutrophils Absolute Auto 3.7 10^3/uL (1.4-6.5); Neutrophils Percent Auto 56.2 % (43.0-75.0); Platelet Count 210 10^3/uL (150-450); Red Blood Count 4.94 10^6/uL (4.70-6.10); Red Cell Distribution Width 11.7 % (11.0-15.0); White Blood Count 6.6 10^3/uL (4.0-11.0)
[2024-08-26] MEDS: KETOROLAC TROMETHAMINE 30 MG/ML VIAL 15 MG IVP (10:07)
[2024-08-26] MEDS: ONDANSETRON PF 4 MG/2 ML VIAL IV (10:08)
[2024-08-26] MEDS: HYDROMORPHONE HCL 1 MG/ML CARTRIDGE IVP (10:08)
[2024-08-26] MEDS: 0.9 % SODIUM CHLORIDE 1,000 ML 999 ML IV (10:11)
[2024-08-26 10:12] LABS: Anion Gap 14.3; BUN Creatinine Ratio 10.8; Calcium 9.3 mg/dL (8.5-10.1); Carbon Dioxide 27.8 mmol/L (21.0-32.0); Chloride 99 mmol/L (98-107); Estimated GFR (African America >60 (>=60 mL/min/1.73m^2); Estimated GFR (Non-African Ame >60 (>=60 mL/min/1.73m^2); Glucose 394 mg/dL (74-106); Potassium 4.1 mmol/L (3.5-5.1); Sodium 137 mmol/L (136-145)
[2024-08-26 10:44] LABS: Bilirubin Urine NEGATIVE (NEGATIVE); Blood Urine NEGATIVE (NEGATIVE); Clarity Urine CLEAR (CLEAR); Color Urine YELLOW (YELLOW); Glucose Urine UA >=1000 mg/dL (NEGATIVE); Ketones Urine NEGATIVE (NEGATIVE); Leukocyte Esterase Urine NEGATIVE (NEGATIVE); Nitrite Urine NEGATIVE (NEGATIVE); Protein Urine TRACE mg/dL (NEG/TRACE); Specific Gravity Urine 1.025 (1.005-1.025); Urobilinogen Urine 0.2 EU/dL (0.2-1.0)
[2024-08-26 10:57] LABS: Bacteria Urine TRACE #/HPF (NONE SEEN); Crystals Seen? None Seen #/HPF (None Seen); Mucus Urine MODERATE (NONE SEEN); RBC Urine 0-2 #/HPF (0-2); Squamous Epithelial Cell Urine FEW #/LPF (NONE/RARE)
[2024-08-26 10:58] LABS: Cast Seen? NONE SEEN #/LPF (NONE SEEN)
[2024-08-26 11:20] VITALS: BP 136/85; PULSE 79; O2SAT 99
== END 2024-08-26 11:23 | disposition home or self-care (01) ==
PROVIDERS: Emergency Provider Student in an Organized Health Care Education/Training Program
DX: N20.0 Calculus of kidney (principal); N13.30 Unspecified hydronephrosis; R10.31 Right lower quadrant pain; Z79.899 Other long term (current) drug therapy; Z79.85 Long-term (current) use of injectable non-insulin antidiabetic drugs; E11.65 Type 2 diabetes mellitus with hyperglycemia
CPT/HCPCS: 36415; 74176; 80048; 81001; 85025; 96374; 96375; 99284; J1171; J1885; J2405

== ENCOUNTER 2025-02-07 01:28 | Emergency (ER) | payer BC, SELFPAY ==
[2025-02-07] VITALS (7 sets, daily range): BP systolic 132; BP diastolic 92; PULSE 91–102; TEMP 37.1; O2SAT 95–96; BMI 24.4
--- OUTSIDE RECORDS SUMMARY | 2025-02-07 01:38 | XMS_ITS ---
Author Organization [facility] Address [address] [place] [address] Phone Care Team Providers Care Twister In Name Role Phone Homero Camilo MD Unavailable [phone] Marlen Marcelo PharmD Unavailable [phone] Carmelita Waters MD Unavailable [phone] Unavailable Unava ilable Ella Prasad PORTER MARINA Unavailable Unavail able Elo Mercedes PORTER MARINA Unavailable Unavaila Marquise Rodriguez MD Unavailable [phone] Virginia Soria RN Unavailable Unavailable Madi Deras MD Unavailable [phone] Kapil Covarrubias IT AUDIT MANAGER-HANGING FLAGS DECORATOR Unavailable [phone] Shawanda Morejon PT Unavailable [phone] Cystic Fibrosis Non-Core Status:Enrolled (Active) Start date:04/01/2024 Enrollment date:04/01/2024 Current support & services provided:Refill Management, Benefits and PA Management Linked medications:dornase dickson (Active) Continued Care and Services Coordination
--- OUTSIDE RECORDS SUMMARY | 2025-02-07 01:38 | XMS_ITS | Clinical Summary ---
Author Organization [facility] Address [address] [place] [address] Phone Care Team Providers Care Wood Heel Attacher Name Role Phone Homero Camilo MD Unavailable [phone] Marlen Marcelo PharmD Unavailable [phone] Carmelita Waters MD Unavailable [phone] Unavailable Unava ilElla Berry CARBON GRINDER Unavailable Unavail able Elo Mercedes CARBON GRINDER Unavailable Unavaila Marquise Rodriguez MD Unavailable [phone] Virginia Soria RN Unavailable Unavailable Madi Deras MD Unavailable [phone] Kapil Covarrubias PROPULSION MACHINERY SERVICE ENGINEER-SHUFFLE BOARD OPERATOR Unavailable [phone] Shawanda Morejon PT Unavailable [phone] Allergies No known active allergies Medications pen needle, diabetic 32 gauge x needleIndications: 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 2 each 4 4:43 PM EDT 11/29/19 24 Active Baqsimi 3 mg/actuation spray,non-aerosolI ndications:Diabete s mellitus related to CF (cystic fibrosis) (Multi) [place] 3 mg nasally as needed for severe hypoglycemia 2 each 3 11/29/19 24 Active fluticasone (Flonase) 50 mcg/actuation nasal sprayIndications:C ystic fibrosis Administer 2 sprays into each nostril once daily. Shake gently. Before first use, prime pump. After use, clean tip and replace cap. 16 g 6 11/29/19 24 Active ivacaftor 150 mg tabletIndications: Cystic fibrosis with pulmonary manifestations (Multi) Take 1 tablet (150 mg) by mouth once daily in the evening. Take with high-fat food. 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 30 tablet 11 5 12:32 PM EDT 01/15/20 24 Active insulin aspart, with niacinamide, (Fiasp FlexTouch U-100 Insulin) 100 unit/mL (3 mL) penIndications:Arlette betes mellitus related to CF (cystic fibrosis) (Multi) Inject 11 Units under the skin 3 times a day before meals. Take as directed per insulin instructions. 30 mL 3 5 5:42 PM EST 01/15/20 24 Active budesonide-formote rol (Symbicort) 80-4.5 mcg/actuation inhalerIndications :Cystic fibrosis with pulmonary manifestations (Multi) Inhale 2 puffs by mouth once daily. 8 g 11 5 12:32 PM EDT 01/15/20 24 Active sodium chloride 7 % solution for nebulization nebulizer solutionIndication s:Cystic fibrosis,Cystic fibrosis with pulmonary manifestations (Multi) Inhale 1 vial via nebulizer twice a day 240 mL 3 01/20/20 24 Active albuterol 2.5 mg /3 mL (0.083 %) nebulizer solutionIndication s:Cystic fibrosis with pulmonary manifestations (Multi),Cystic fibrosis Take 3 mL (2.5 mg) by nebulization every 4 hours if needed for wheezing or shortness of breath. 540 mL 6 5 10:56 AM EST 01/21/20 24 Active albuterol 90 mcg/actuation inhalerIndications :Cystic fibrosis with pulmonary manifestations (Multi) Inhale 2 puffs by mouth every 4 hours if needed for shortness of breath (airway clearance). 18 g 11 5 12:32 PM EDT 03/31/20 24 Active dornase Alpha (Pulmozyme) 1 mg/mL nebulizer solutionIndication s:Cystic fibrosis with pulmonary manifestations (Multi) Take 2.5 mg (1 vial) by nebulization once daily. 75 mL 6 03/31/20 24 Active insulin glargine (Basaglar KwikPen U-100 Insulin) 100 unit/mL (3 mL) penIndications:Arlette betes mellitus related to CF (cystic fibrosis) (Multi) Inject 25 Units under the skin once daily in the morning. Take as instructed. Maximum daily dose 50 units 04/01/20 24 Active azelastine (Astelin) 137 mcg (0.1 %) nasal sprayIndications:S easonal allergic rhinitis due to pollen Administer 1 spray into each nostril 2 times a day. Use in each nostril as directed 30 mL 12 04/01/20 24 025 Active mirtazapine (Remeron) 15 mg tabletIndications: Insomnia, unspecified type Take 1 tablet (15 mg) by mouth once daily at bedtime. 90 tablet 4 4:57 PM EST 06/15/20 24 Active LC Plus miscIndications:Cy stic fibrosis,Cystic fibrosis with pulmonary manifestations (Multi) Please dispense one Nettie LC plus nebulizer cup kit with mouthpiece with each refill of 7% Sodium Chloride for inhalation. 1 each 3 5 12:32 PM EDT 06/18/20 24 Active fsiecv-aczmogkg-ej ylase (Zenpep) 25,000-79,000- 105,000 unit capsuleIndications :Cystic fibrosis with pulmonary manifestations (Multi) Take 4-5 capsules by mouth with meals and 3 capsules by mouth with snacks. Total of 24 capsules per day 800 capsule 12:32 PM EDT 07/24/19 Active elexacaftor-tezaca ftor-ivacaft (Trikafta) 100-50-75 mg tabletIndications: Cystic fibrosis Take two (2) orange tablets by mouth every morning and one (1) blue tablet by mouth every evening. Take approximately 12 hours apart with fatty foods. 84 tablet 07/24/19 Active Active Problems Patient Care Coordination No te Formatting of this note is d ifferent from the original. CYSTIC FIBROSIS CHART REVIEW Attending: Dr. Waters Date of Last Appointment: 04/01/2024 Notes: Annual labs at next appointment Follow-Up: Paulette (Aug)- [facility] Sign up for [facility] Date of Next Appointment: 09/02/2024 CF Care Checklist: Nursing Yes/No Date Notes CFTR Mutations [id number] / unknown Sweat Chloride Annual Labs No 01/15/2024 Due for 2024 Visits This Year Liver Function Test 01/15/2024 Eye Exam Central Line No Flu Vaccine Yes 04/01/2024 Covid Vaccine/Booster 10/12/2020 11/02/2020 RSV Vaccine Pneumonia Vaccine 12/15/2010 Pneumovax 23 Last Admission 11/22/23-11/29/23 CF Exacerbation Respiratory Culture 04/01/2024 MRSA (09/2023; 11/2023; 01/2024) AFB Culture 11/20/2023 Mycobacterium Abscessus (09/2023; 11/2023) Fungal Culture Sick Plan Trimethoprim-sulfamethoxazole 160 mg TMP/800 mg SMX (Bactrim DS) 2 tablets by mouth twice daily x 14 days Transplant Education ENT Consult/Follow-up Urology Consult/Follow-up Respiratory Therapy Yes/No Date 08.27.24 Notes Respiratory Therapy Annual Assessment Baseline FEV1 102% 4.24L 9.25.24 Airway Clearance [place] Vest / exercise Pulmozyme no ordered Hypertonic Saline 7% Inhaled Antibiotic no Other Inhaled Medication Symbicort Albuterol HFA Oxygen/CPAP/BIPAP no Home Spirometer Social Work Yes/No Date Notes Annual Assessment Mental Health Screen Release of Information Referred or Connected to a Counselor Dietitian Yes/No Date Notes Annual Assessment Needs 25 G-tube No OGTT N/A CFRD DEXA Yes WNL 22 Repeat 27 Colonoscopy Yes TAs 2019 Repeat due Liver Ultrasound Yes 2023 Nutrition Support Yes Protein shakes Swallowing Capsules GI Symptom Tracker Needs 25 Body Composition Yes Repeat due SMM 74.7 (fit), PBF 17.1% Body Image Yes Pt. Hoping to gain muscle DME/Specialty Pharmacy Programs ([employer] [facility], [employer] [facility], [employer]) Yes [id number]. Re-signing up Nutritional Status BMI at goal Pancreatic Enzymes Yes Zenpep Fecal Elastase Nutrition Labs Needs 25 GPR 0.49, APRI 1.43 Diet (restriction/allergies) Balanced Calcium Intake Excessive N/A Transplant N/A Food Insecurity No NaCL Supplementation Endo Consult/Follow up Yes 09/18/23 F/U 09/02/24 GI Consult/Follow up Yes 05/27/24 F/U 09/02/24 Physical Therapy Yes/No Date Notes Assessment yes 01/15/2024 Annual follow ups Pharmacy Yes/No Date Notes Annual Assessment Ibuprofen Azithromycin Chronic Oral Antibiotic Other Chronic Medication NTM Regimen CFTR Modulator Name CFTR Modulator Start Date CFTR Modulator Dose Adjustment CFTR Side Effects Research Yes/No Date Notes Research Study Consent to CF Registry Genetic Counselor Yes/No Date Notes Problem Noted Date Diagnosed Date Exocrine pancreatic insufficiency ([facility]) 01/05 Rhinosinusitis 01/19/2024 Methicillin resistant Staphylococcus aureus infe ction 01/19/2024 Assessment & Plan (01/19/2024 10:46 AM EDT): Sick plan: Trimethoprim-sulfamethoxazole 160 mg TMP/800 mg SMX (Bactrim DS) 2 tablets by mouth twice daily x 14 days Cystic fibrosis 11/22/2023 Assessment & Plan (01/19/2024 1:13 PM EDT): Remarkable turn-around of health now that he is taking Trikafta, doing aerosols and chest physiotherapy, and taking insulin to manage diabetes. ppFEV1 was convincingly better today and normal. 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 Continue albuterol, Pulmozyme, 7% hypertonic saline, and chest physiotherapy. Abnormal liver function test 04/23/2023 Anxiety 04/23/2023 Assessment & Plan (01/19/2024 1:13 PM EDT): Clarified his dose of BuSpar. Benign colonic polyp 04/23/2023 Cirrhosis (Multi) 04/23/2023 Assessment & Plan (01/19/2024 1:25 PM EDT): Overdue to follow-up with Dr. Briceño. Will try to arrange appointment. Cystic fibrosis with pulmonary manifestations (M ulti) 04/23/2023 Diabetes mellitus related to CF (cystic fibrosis ) (Multi) 04/23/2023 Assessment & Plan (01/19/2024 1:25 PM EDT): Follows with Dr. Harris (due for appointment) Hemoglobin A1C down to 8.4% (01/15/2024) from 9.7% in mid-November 2023. (+) microalbuminuria (73.6 mcg/gm creatinine) on 01/15/2024 Humalog KwikPen not covered and has no other filled prescription; I wrote for Fiasp insulin as alternative, 11 units with meals. Takes basal insulin (30 units Basaglar). Assessment & Plan (09/25/2023 5:33 PM EDT): 38 yo male with CF, PI, here for CFRD. Has had weight loss and decline in pulmonary function. A1c is elevated at 10% although improved from 04/29 when it was 13%. Having sx of hypoglycemia at BG under 200. Need to gradually re-normalize his blood glucoses. Agreeable to starting CGM (phone not compatible with dexcom). 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 I told them that I had fully expected to discuss treatment of NTM pulmonary disease today, but the marked health improvement tempers my enthusiasm about treatment of the NTM. Rg was supposed to get a non-contrast CT scan of the chest before today's visit. It turns out that it was denied by insurance. I don't think he needs to have the scan at this point in light spirometry improvement. 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 Resolved Problems Problem Noted Date Diagnosed Date Resolved Date Diabetes mellitus, type 2 (Multi) 10/01/2023 01/19/2024 Exocrine pancreatic manifest ation of cystic fibrosis (Multi) 04/23/2023 01/19/2024 Encounters Date Type Department Care Team Description 01/25/2025 Telephone [facility] [address] [place] [address] Virginia Soria, RN Emails for FMLA 12/15/2024 Specialty Pharmacy [facility] [place] [address] Marlen Marcelo PharmD Refill Coordination Outreach (90 day recurrence) - mirtazapine (Remeron) for Miscellaneous Non-Core 12/08/2024 Refill [facility] [address] [place] [address] Carmelita Waters MD Insomnia, unspecified type 12/03/2024 Refill [facility] [address] [place] [address] Carmelita Waters MD Cystic fibrosis with pulmonary manifestations (Multi) 12/01/2024 Specialty Pharmacy [facility] [address] [place] [address] Althea Bruce, PharmD Refill Coordination Outreach (90 day recurrence) - mirtazapine (Remeron) for Miscellaneous Non-Core, Started Refill Coordination Outreach (30 day recurrence) - lipase/protease/amylas e (Zenpep) for Cystic Fibrosis Non-Core 11/27/2024 Specialty Pharmacy [facility] [address] [place] [address] Amparo Simpson Refill Coordination Outreach (90 day recurrence) - mirtazapine (Remeron) for Miscellaneous Non-Core, Started Refill Coordination Outreach (30 day recurrence) - lipase/protease/amylas e (Zenpep) for Cystic Fibrosis Non-Core from Last 3 Months Immunizations Immunization Administration Dates Next Due Flu vaccine (IIV4), preserva tive free *Check age/dose* 04/24/2023,09/09/2019,07/21/2018 Flu vaccine, trivalent, pres ervative free, age 6 months and greater (Fluarix/Fluzone/Flulaval) 04/01/2024,06/27/2016 Influenza, Unspecified 04/28/2003,04/29/2002 Influenza, seasonal, injectable 09/09/19 20,04/11/2019,07/21/2018,04/28,04/29/2002 MMR vaccine, subcutaneous (MMR II) 08/24/1997 Pneumococcal polysaccharide vaccine, 23-valent, age 2 years and older (PNEUMOVAX 23) 12/15/2010 Social History Tobacco Use Types Packs/Day Years Used Date Smoking Tobacco: Never Smokeless Tobacco: Current Chew Tobacco Cessation:Ready to Q uit: No; Counseling Given: Yes Alcohol Use Standard Drinks/Week Comments Yes 3 (1 standard drink = 0.6 oz pur e alcohol) [facility] Utilities Answer Date Recorded In the past 12 months has [employer], [employer], or water [employer] threatened to shut off services in your home? Patient declined 11/22/2023 Humiliation, Afraid, Rape, and Kick questionnair e Answer Date Recorded Within the last year, have y ou been afraid of your partner or ex-partner? Patient declined 11/22/2023 Within the last year, have y ou been humiliated or emotionally abused in other ways by your partner or ex-partner? Patient declined 11/22/2023 Within the last year, have y ou been kicked, hit, slapped, or otherwise physically hurt by your partner or ex-partner? Patient declined 11/22/2023 Within the last year, have y ou been raped or forced to have any kind of sexual activity by your partner or ex-partner? Patient declined 11/22/2023 Social Connection and Isolation Panel Answer Date Recorded In a typical week, how many times do you talk on the phone with family, friends, or neighbors? Patient declined 11/22/2023 How often do you get togethe r with friends or relatives? Patient declined 11/22/2023 How often do you attend methodist or confucianism serv ices? Patient declined 11/22/2023 Do you belong to any clubs o r organizations such as methodist groups, unions, fraternal or athletic groups, or school groups? Patient declined 11/22/2023 How often do you attend meet ings of the clubs or organizations you belong to? Patient declined 11/22/2023 Are you , , di vorced, , never , or living with a partner? Patient declined 11/22/2023 AUDIT-C Answer Date Recorded Q1: How often do you have a drink containing alc ohol? Patient declined 11/22/2023 Q2: How many drinks containi ng alcohol do you have on a typical day when you are drinking? Patient declined 11/22/2023 Q3: How often do you have si x or more drinks on one occasion? Patient declined 11/22/2023 Overall Financial Resource Strain (CARDIA) Answe r Date Recorded How hard is it for you to pa y for the very basics like food, housing, medical care, and heating? Not hard at all 11/22/2023 PHQ-2 Answer Date Recorded Patient Health Questionnaire-2 Score 0 11/22/2023 [facility] - Occupational Stress Questionnaire Answer Date Recorded Do you feel stress - tense, restless, nervous, or anxious, or unable to sleep at night because your mind is troubled all the time - these days? Patient declined 11/22/2023 Hunger Vital Sign Answer Date Recorded Within the past 12 months, y ou worried that your food would run out before you got the money to buy more. Patient declined Within the past 12 months, t he food you bought just didn't last and you didn't have money to get more. Patient declined PRAPARE - Transportation Answer Date Re corded In the past 12 months, has l ack of transportation kept you from medical appointments or from getting medications? No 11/05 In the past 12 months, has l ack of transportation kept you from meetings, work, or from getting things needed for daily living? No 11/22/2023 Housing Stability Vital Sign Answer Kike e Recorded In the last 12 months, was t here a time when you were not able to pay the mortgage or rent on time? No 11/25/2023 In the last 12 months, how many places have you lived? 1 11/25/2023 In the last 12 months, was t here a time when you did not have a steady place to sleep or slept in a longterm (including now)? No 11/25/2023 Sex and Gender Information Value Date Recorded Sex Assigned at Not on file Legal Sex Male 10:19 AM EST Gender Identity Not on file Sexual Orientation Not on file Last Filed Vital Signs Vital Sign Reading Time Taken Comments Blood Pressure 122/84 04/01/2024 9:18 AM EDT Pulse 94 04/01/2024 9:18 AM EDT Temperature 36.6 C (97.8 F) 04/01/2024 9:18 AM EDT Respiratory Rate 20 04/01/2024 9:18 AM EDT Oxygen Saturation 98% 04/01/2024 9:18 AM EDT Inhaled Oxygen Concentration - - Weight 81.1 kg (178 lb 12.7 oz) 04/01/2024 9:18 AM EDT Height 182 cm (5' 11.65 ) 04/01/2024 9:18 AM EDT Body Mass Index 24.48 04/01/2024 9:18 AM EDT Plan of Treatment Health Maintenance Due Date Last Done Comments Bronchoscopy 1984 HIV Screening 1984 Yearly Adult Physical 1984 Diabetes: Retinopathy Screening 1994 Hepatitis A Vaccines (1 of 2 - Risk 2-dose series) 2003 Hepatitis B Vaccines (1 of 3 - 19+ 3-dose series) 2003 DTaP/Tdap/Td Vaccines (1 - Tdap) 2006 HPV Vaccines (1 - 3-dose standard series) 2011 Pneumococcal Vaccine: Pediatrics and At-Risk Adult Patients (2 of 2 - PCV) 12/16/2011 12/15/2010 COVID-19 Vaccine (3 - season) 2024 11/02/2020, 10/12/2020 Diabetes: Hemoglobin A1C 04/16/2024 024, 11/22/2023, 09/19/2023, Additional history exists Lipid Panel 11/28/2024 11/29/2023, 04/07, 10/04/2021, Additional history exists Diabetes: Urine Protein Screening 01/14/2025 01/15/2024, 04/24/2023, 10/04/2021, Additional history exists Influenza Vaccine (#1) 2025 , 04/24/2023, 09/09/2019, Additional history exists Zoster Vaccines (1 of 2) 2034 MMR Vaccines Completed 08/24/1997 Irritable Bowel Syndrome Discontinued 024, 05/03/2020, 05/03/2020, Additional history exists Hepatitis C Screening Completed 11/29/2023, 019 HIB Vaccines Aged Out No longer eligi ble based on patient's age to complete this topic IPV Vaccines Aged Out No longer eligi ble based on patient's age to complete this topic Meningococcal Vaccine Aged Out No tolu annabelle eligible based on patient's age to complete this topic Rotavirus Vaccines Aged Out No longer eligible based on patient's age to complete this topic Procedures Procedure Name Priority Date/Time Associated Diagnosis Comments ALBUMIN-CREATININE RATIO, URINE RANDOM Routine 01/15/2024 2:47 PM EDT Diabetes mellitus related to CF (cystic fibrosis) (Multi) HEMOGLOBIN A1C Routine 01/15/2024 2:20 PM EDT Diabetes mellitus related to CF (cystic fibrosis) (Multi) HEPATITIS PANEL, ACUTE Routine 11/29/2023 8:24 AM EDT LIPID PANEL Add-On 11/29/2023 5:39 AM EDT BRONCHOSCOPY Routine 10/01/2023 2:15 PM EDT Cystic fibrosis with pulmonary manifestations (Multi) from Last 3 Months or Most Recently Relevant to Health Maintenance Results * (ABNORMAL) Albumin , Urine Random (01/15/2024 2:47 PM EDT) Albumin, Urine Random 68.1 Not established mg/L LAB CHEMISTRY METHOD 01/15/2024 6:48 PM EDT [facility] Creatinine, Urine Random 92.5 20.0 - 370.0 mg/dL LAB CHEMISTRY METHOD 01/15/2024 6:48 PM EDT [facility] Albumin/Creat inine Ratio 73.6(H) <30.0 ug/mg Creat LAB CHEMISTRY METHOD 01/15/2024 6:48 PM EDT [facility] Urine Urine specimen / Unknown Non-blood Collection / Unknown 01/15/2024 2:47 PM EDT 01/15/2024 2:47 PM EDT us Irene Harris MD LAB URINE ORDERABLES Final Re sult [facility] [id number] [place] [address] * (ABNORMAL) Hemoglobin A1C (01/15/2024 2:20 PM EDT) Hemoglobin A1C 8.4(H) see below % 6:39 PM EDT [facility] Estimated Average Glucose 194 Not Established mg/dL 01/15/2024 6:39 PM EDT [facility] Blood Venous blood specimen / Unknown Venipuncture / Unknown 01/15/2024 2:20 PM EDT 01/15/2024 2:21 PM EDT Narrative [facility] - 01/15/2024 6:39 PM EDT Diagnosis of Diabetes-Adults Non-Diabetic: < or = 5.6% Increased risk for developing diabetes: 5.7-6.4% Diagnostic of diabetes: > or = 6.5% Madi Deras MD LAB BLOOD ORDERABLES Final Res ult [facility] [address] [facility] [id number] [place] [address] * Hepatitis panel, acute (11/29/2023 8:24 AM EDT) Hepatitis B Surface AG Nonreactive Nonreactive LAB IMMUNOASSAY METHOD 11/29/2023 10:10 AM EDT [facility] Comment: Biotin interference may cause falsely decreased results. Patients taking a Biotin dose of up to 5 mg/day should refrain from taking Biotin for 24 hours before sample collection. Providers may contact their local laboratory for further information. Hepatitis A AB- IgM Nonreactive Nonreactive LAB IMMUNOASSAY METHOD 11/29/2023 10:10 AM EDT [facility] Comment: Biotin interference may cause falsely decreased results. Patients taking a Biotin dose of up to 5 mg/day should refrain from taking Biotin for 24 hours before sample collection. Providers may contact their local laboratory for further information. Hepatitis B Core AB; IgM Nonreactive Nonreactive LAB IMMUNOASSAY METHOD 11/29/2023 10:10 AM EDT [facility] Comment: Results from patients taking biotin supplements or receiving high-dose biotin therapy should be interpreted with caution due to possible interference with this test. Providers may contact their local laboratory for further information. Hepatitis C AB Nonreactive Nonreactive LAB IMMUNOASSAY METHOD 11/29/2023 10:10 AM EDT [facility] Comment:Results from patient s taking biotin supplements or receiving high-dose biotin therapy should be interpreted with caution due to possible interference with this test. Providers may contact their local laboratory for further information. Blood Blood sample taken from central line / Unknown 11/29/2023 8:24 AM EDT 11/29/2023 8:54 AM EDT us Braxton Ambrosio MD LAB BLOOD ORDERABLES Final R esult [facility] [address] [address] [place] [id number] * Lipid panel (11/29/2023 5:39 AM EDT) [facility] Signature Cholesterol 119 0 - 199 mg/dL LAB CHEMISTRY METHOD 11/29/2023 8:27 AM EDT [facility] Comment: Age Desirable Borderline High High 0-19 [...] be performed immediately prior to Metamizole dosing. HDL-Cholesterol 38.5 mg/dL LAB CHEMISTRY METHOD 11/29/2023 8:27 AM EDT [facility] Comment: Age Very Low Low Normal High 0-19 Y < 35 < 40 40-45 ---- 20-24 Y ---- < 40 >45 ---- >24 Y ---- < 40 40-60 >60 Cholesterol/HDL Ratio 3.1 LAB CHEMISTRY METHOD 11/29/2023 8:27 AM EDT [facility] Comment: Ref Values Desirable < 3.4 High Risk > 5.0 LDL Calculated 60 <=99 mg/dL LAB CHEMISTRY METHOD 11/29/2023 8:27 AM EDT [facility] Comment: Near Borderline AGE Desirable Optimal High High Very High 0-19 Y 0 - 109 --- 110-129 >/= 130 ---- 20-24 Y 0 - 119 --- 120-159 >/= 160 ---- >24 Y 0 - 99 100-129 130-159 160-189 >/=190 VLDL 21 0 - 40 mg/dL LAB CHEMISTRY METHOD 11/29/2023 8:27 AM EDT [facility] Triglycerides 105 0 - 149 mg/dL LAB CHEMISTRY METHOD 11/29/2023 8:27 AM EDT [facility] [facility] Comment: Age Desirable Borderline High High Very [...] be performed immediately prior to Metamizole dosing. Non HDL Cholesterol 81 0 - 149 mg/dL LAB CHEMISTRY METHOD 11/29/2023 8:27 AM EDT [facility] Comment: Age Desirable Borderline High High Very High 0-19 Y 0 - 119 120 - 144 >/= 145 >/= 160 20-24 Y 0 - 149 150 - 189 >/= 190 ---- >24 Y 30 mg/dL above LDL Cholesterol goal Blood Venous blood specimen / Unknown 11/29/2023 5:39 AM EDT 11/29/2023 5:51 AM EDT us Braxton Ambrosio MD LAB BLOOD ORDERABLES Final R esult Performing Organization Address City/State/[facility] Co de Phone Number [facility] [address] [place], [place] [id number] * Bronchoscopy Tier 1; w BAL (10/01/2023 2:15 PM EDT) Anatomical Region Laterality Modality Endoscopy Narrative 10/30/2023 11:45 AM EDT Table formatting from the original result was not included. Impression The lower trachea, main reyna, left main stem, FORTUNATO, lingula, LLL, right main stem, RUL, bronchus intermedius, RML and RLL appeared normal. Minimal, thin and white secretions present in the lower trachea, main reyna, left lung and right lung; performed washing, sent sample for microbiology analysis Bronchoalveolar lavage was performed x1 in the RML; the fluid appeared cloudy Findings The lower trachea, main reyna, left main stem, FORTUNATO, lingula, LLL, right main stem, RUL, bronchus intermedius, RML and RLL appeared normal. Minimal, thin and white secretions present in the lower trachea, main reyna, left lung and right lung; secretions were easily removed and the airway was cleared; performed washing with a total return of 15 mL, sent sample for microbiology analysis Bronchoalveolar lavage was performed x1 in the RML with 120 mL of saline instilled and a total return of 54 mL; the fluid appeared cloudy. Sent samples for extended microbiologic panel including AFB smear/culture with instructions to speciate. Recommendation Follow up with me in clinic Indication Cystic fibrosis with pulmonary manifestations (Multi) Staff Staff Role No Staff Documented Medications See Anesthesia Record. Preprocedure A history and physical has been performed, and patient medication allergies have been reviewed. The patient's tolerance of previous anesthesia has been reviewed. The risks and benefits of the procedure and the sedation options and risks were discussed with the patient. All questions were answered and informed consent obtained. Details of the Procedure The patient underwent general anesthesia, which was administered by an anesthesia professional. The patient's blood pressure, heart rate, level of consciousness, oxygen, respirations, ECG and ETCO2 were monitored throughout the procedure. The patient experienced no blood loss. The scope was introduced through the laryngeal mask airway. The procedure was not difficult. The patient tolerated the procedure well. There were no apparent adverse events. Events Procedure Events Event Event Time ENDO SCOPE IN TIME 10/01/2023 1:59 PM ENDO SCOPE OUT TIME 10/01/2023 2:05 PM Specimens ID Type Source Tests Collected by Time A : Speciate, hx NTM Fluid BAL RESPIRATORY CULTURE, CYSTIC FIBROSIS, AFB CULTURE/SMEAR, FUNGAL CULTURE/SMEAR Daya Deleon MD 10/01/2023 [id number] B : Respiratory Bronchial Wash Shane Howell RN 10/01/2023 1406 Procedure Location [facility] [address] [facility] [address] [place] [address] [address] [place] [id number] Procedure Provider Carmelita Waters MD Braxton Ambrosio MD ENDOSCOPY PROCEDURE ORDERABL ES Final Result from Last 3 Months or Most Recently Relevant to Health Maintenance Additional Health Concerns Infection Onset Date Last Indicated Cystic Fibrosis 04/23/2023 04/23/2023 Insurance [facility] Advance Directives For more information, please contact: [phone] (Available ) * Full Code (Latest Code Status on File) Date Activated Date Inactivated Comments 11/22/2023 4:53 PM Question Answer Comments Plan of Care: Code Status Discussion Completed Decision Maker: Patient Care Teams Wood Heel Attacher Relationship Specialty Start Date End Date Homero Camilo MD Referring Physician Emergency Medicine 04/24/23 Marlen Marcelo, PharmD Pharmacist Pharmacy 04/25/23 [place] [address] [place] [address] Nursing Program Coordinator Pulmonary Disease 04/25/23 Rae Faulkner, RD Dietitian Nutrition 04/26/23 Ella Prasad, CARBON GRINDER Respiratory Therapist Respiratory Therapy 06/18/23 Elo Mercedes, CARBON GRINDER Respiratory Therapist Respiratory Therapy 07/11/23 Marquise Mensah MD Resident Internal Medicine 11/22/23 Virginia Soria, RAMIRO Registered Nurse Pediatric Pulmonology 12/12/23 [place] [address] [address] [facility] Department [place] [address] Consulting Physician Pulmonary Disease 12/13/23 Kapil Covarrubias, SAMMI-SHUFFLE BOARD OPERATOR [address] Department [place] [address] Nurse Practitioner Pediatric Pulmonology 12/13/23 [place] [address] [address] Department [place] [address] Physical Therapist Physical Therapy 01/15/24
--- OUTSIDE RECORDS SUMMARY | 2025-02-07 01:38 | XMS_ITS | Encounter Summary ---
Author Organization [facility] Address [address] [place] [address] Phone Care Team Providers Care Rehab Trainer Name Role Phone Homero Camilo MD Unavailable [phone] Marlen Marcelo PharmD Unavailable [phone] Carmelita Waters MD Unavailable [phone] Unavailable Unava ilElla Berry TECHNICAL DOCUMENT WRITER Unavailable Unavail able Elo Mercedes TECHNICAL DOCUMENT WRITER Unavailable Unavaila Marquise Rodriguez MD Unavailable [phone] Virginia Soria RN Unavailable Unavailable Madi Deras MD Unavailable [phone] Kapil Covarrubias SYSTEMS SECURITY CONSULTANT-CORPORATE LIBRARIAN Unavailable [phone] Shawanda Morejon PT Unavailable [phone] Encounter Details Date Type Department Care Team (Latest Contact Info) Description 12/24/2023 Specialty Pharmacy [facility] [address] [place] [address] Antonia Pratt Patient Contact - Renewal for Miscellaneous Non-Core, Refill Coordination Outreach (23 day recurrence) for Cystic Fibrosis Core Social History Tobacco Use Types Packs/Day Years Used Date Smoking Tobacco: Never Smokeless Tobacco: Current Chew Alcohol Use Standard Drinks/Week Comments Yes 3 (1 standard drink = 0.6 oz pur e alcohol) [facility] Utilities Answer Date Recorded In the past 12 months has [employer], gas, oil, or water [employer] threatened to shut off services in your [...] declined 11/22/2023 How often do you attend zoroastrian or orthodoxy serv ices? Patient declined 11/22/2023 Do you belong to any clubs o r organizations such as zoroastrian groups, unions, fraternal or athletic groups, or [...] Recorded Patient Health Questionnaire-2 Score 0 11/22/2023 [facility] of Occupat ional Health - Occupational Stress [...] on file Sexual Orientation Not on file documented as of this encounter Plan of Treatment Not on file documented as of this encounter Visit Diagnoses Not on filedocumented in this encounter Additional Health Concerns Infection Onset Date Last Indicated Resolved Time Cystic Fibrosis 04/23/2023 04/23/2023 Assessment Noted Time A fall risk assessment has been complete d for the patient 09/18/2023 11:12 AM EDT documented as of this encounter Care Teams Rehab Trainer Relationship Specialty Start Date End Date Homero Camilo MD Referring Physician Emergency Medicine 04/24/23 Marlen Marcelo, PharmD Pharmacist Pharmacy 04/25/23 [place] [address] [place] [address] Aviation Tactical Readiness Officer Pulmonary Disease 04/25/23 Rae Faulkner, RD Dietitian Nutrition 04/26/23 Ella Prasad, TECHNICAL DOCUMENT WRITER Respiratory Therapist Respiratory Therapy 06/18/23 Elo Mercedes, TECHNICAL DOCUMENT WRITER Respiratory Therapist Respiratory Therapy 07/11/23 Marquise Mensah MD Resident Internal Medicine 11/22/23 Virginia Soria, RN Registered Nurse Pediatric Pulmonology 12/12/23 [place] [address] Department [place] [address] Consulting Physician Pulmonary Disease 12/13/23 Kapil Covarrubias, SAMMI-UMM [address] Department [place] [address] Nurse Practitioner Pediatric Pulmonology 12/13/23 [place] [address] [address] Department [place] [address] Physical Therapist Physical Therapy 01/15/24 documented as of this encounter
--- OUTSIDE RECORDS SUMMARY | 2025-02-07 01:38 | XMS_ITS | Encounter Summary ---
Author Organization [facility] Address [address] [place] [address] Phone Care Team Providers Care Escrow Agent Name Role Phone Homero Camilo MD Unavailable [phone] Marlen Marcelo PharmD Unavailable [phone] Carmelita Waters MD Unavailable [phone] Unavailable Unava ilElla Berry PATTERN CHANGER Unavailable Unavail able Elo Mercedes PATTERN CHANGER Unavailable Unavaila Marquise Rodriguez MD Unavailable [phone] Virginia Soria RN Unavailable Unavailable Madi Deras MD Unavailable [phone] Kapil Covarrubias GOLF COURSE MECHANIC-TOOL DESIGN DRAFTER Unavailable [phone] Shawanda Morejon PT Unavailable [phone] Encounter Details Date Type Department Care Team (Latest Contact Info) Description 10/06/2024 Specialty Pharmacy Specialty [facility] [address] [place] [address] Antonia Pratt Started Refill Coordination Outreach (30 day recurrence) - lipase/protease/amyla se (Zenpep) for Cystic Fibrosis Non-Core Social History Tobacco Use Types Packs/Day Years Used Date Smoking Tobacco: Never Smokeless Tobacco: Current Chew Alcohol Use Standard Drinks/Week Comments Yes 3 (1 standard drink = 0.6 oz pur e alcohol) [facility] Utilities Answer Date Recorded In the past 12 months has e [employer], [employer], or [employer] threatened to shut off services in your [...] declined 11/22/2023 How often do you attend nondenominational or holiness serv ices? Patient declined 11/22/2023 Do you belong to any clubs o r organizations such as nondenominational groups, unions, fraternal or athletic groups, or [...] Recorded Patient Health Questionnaire-2 Score 0 11/22/2023 [facility] of Occupat ional Health - Occupational [...] place to sleep or slept in a long term (including now)? No 11/25/2023 Sex and Gender [...] documented as of this encounter Care Teams Escrow Agent Relationship Specialty Start Date End Date Homero Camilo MD Referring Physician Emergency Medicine 04/24/23 Marlen Marcelo, PharmD Pharmacist Pharmacy 04/25/23 [place] [address] [place] [address] Switch Foreman Pulmonary Disease 04/25/23 Rae Faulkner, RD Dietitian Nutrition 04/26/23 Ella Prasad, PATTERN CHANGER Respiratory Therapist Respiratory Therapy 06/18/23 Elo Mercedes, PATTERN CHANGER Respiratory Therapist Respiratory Therapy 07/11/23 Marquise Mensah MD Resident Internal Medicine 11/22/23 Virginia Soria, RAMIRO Registered Nurse Pediatric Pulmonology 12/12/23 [place] [address] Department [place] [address] Consulting Physician Pulmonary Disease 12/13/23 Kapil Covarrubias, SAMMI-TOOL DESIGN DRAFTER [address] Department [place] [address] Nurse Practitioner Pediatric Pulmonology 12/13/23 [place] [address] [address] Department [place] [address] Physical Therapist Physical Therapy 01/15/24 documented as of this encounter
--- OUTSIDE RECORDS SUMMARY | 2025-02-07 01:38 | XMS_ITS | Encounter Summary ---
Author Organization [facility] Address [address] [place] [address] Phone Care Team Providers Care Art Therapist Name Role Phone Homero Camilo MD Unavailable [phone] Marlen Marcelo PharmD Unavailable [phone] Carmelita Waters MD Unavailable [phone] Unavailable Unava ilElla Berry PROTOTYPE FABRICATOR Unavailable Unavail able Elo Mercedes PROTOTYPE FABRICATOR Unavailable Unavaila Marquise Rodriguez MD Unavailable [phone] Virginia Soria RN Unavailable Unavailable Madi Deras MD Unavailable [phone] Kapil Covarrubias VOCATIONAL EVALUATOR-IT PROJECT MANAGER Unavailable [phone] Shawanda Morejon PT Unavailable [phone] Reason for Visit * Reason Onset Date Comments Emails for HENRI 01/25/2025 Encounter Details Date Type Department Care Team (Late st Contact Info) Description 01/25/2025 Telephone [facility] [address] [place] [address] Virginia Soria, RN Emails for [facility] Social History Tobacco Use Types Packs/Day Years Used Date Smoking Tobacco: Never Smokeless Tobacco: Current Chew Alcohol Use Standard Drinks/Week Comments Yes 3 (1 standard drink = 0.6 oz pur e alcohol) [facility] Utilities Answer Date Recorded In the past 12 months has e [employer], gas, oil, or water company threatened to shut off services in your [...] declined 11/22/2023 How often do you attend buddhism or protestant serv ices? Patient declined 11/22/2023 Do you belong to any clubs o r organizations such as buddhism groups, unions, fraternal or athletic groups, or [...] Recorded Patient Health Questionnaire-2 Score 0 11/22/2023 [place] of Occupat ional Health - Occupational Stress [...] place to sleep or slept in a mcfp (including now)? No 11/25/2023 Sex and Gender Information Value Date Recorded Sex Assigned at Not on file Legal Sex Male 10:19 AM EST Gender Identity Not on file Sexual Orientation Not on file documented as of this encounter Miscellaneous Notes * Telephone Encounter - Virginia Soria RN - 01/25/2025 11:12 AM EDT Rg left a VM about how to send us his [place] paperwork so he can make an appointment. RAMIRO called back and left a VM about sending him a Construct message with emails. documented in this encounter Plan of Treatment Not on file documented as of this encounter Visit Diagnoses Not on filedocumented in this encounter Additional Health Concerns Infection Onset Date Last Indicated Resolved Time Cystic Fibrosis 04/23/2023 04/23/2023 Assessment Noted Time A fall risk assessment has been complete d for the patient 09/18/2023 11:12 AM EDT documented as of this encounter Care Teams Art Therapist Relationship Specialty Start Date End Date Homero Camilo MD Referring Physician Emergency Medicine 04/24/23 Marlen Marcelo, PharmD Pharmacist Pharmacy 04/25/23 [place] [address] [place] [address] Four Slide Operator Pulmonary Disease 04/25/23 Rae Faulkner, RD Dietitian Nutrition 04/26/23 Ella Prasad, PROTOTYPE FABRICATOR Respiratory Therapist Respiratory Therapy 06/18/23 Elo Mercedes, PROTOTYPE FABRICATOR Respiratory Therapist Respiratory Therapy 07/11/23 Marquise Mensah MD Resident Internal Medicine 11/22/23 Virginia Soria, RN Registered Nurse Pediatric Pulmonology 12/12/23 [place] [address] [address] [facility] Department [place] [address] Consulting Physician Pulmonary Disease 12/13/23 Kapil Covarrubias, SAMMI-UMM [address] [facility] Department [place] [address] Nurse Practitioner Pediatric Pulmonology 12/13/23 [place] [address] Department [place] [address] Physical Therapist Physical Therapy 01/15/24 documented as of this encounter
--- OUTSIDE RECORDS SUMMARY | 2025-02-07 01:38 | XMS_ITS | Encounter Summary ---
Author Organization [facility] Address [address] [place] [address] Phone Care Team Providers Care Millinery Blocker Name Role Phone Homero Camilo MD Unavailable Marlen Marcelo PharmD Unavailable [phone] Carmelita Waters MD Unavailable [phone] Unavailable Unava ilable Lissett Adam RN Unavailable Unavaila Ella Preston CHYRON OPERATOR Unavailable Unavail able Elo Mercedes CHYRON OPERATOR Unavailable Unavaila Marquise Rodriguez MD Unavailable [phone] Virginia Soria RN Unavailable Unavailable Madi Deras MD Unavailable [phone] Kapil Covarrubias Unavailable [phone] Shawanda Morejon PT Unavailable [phone] Reason for Referral * PFT (Routine) - Closed Specialty Diagnoses / Procedures Referred By Edie t Referred To Contact Diagnoses Cystic fibrosis Procedures Spirometry Kapil Covarrubias APRN-CNP [address] Department [place] [address] Phone: tel: fax: Referral ID Status Reason Start Date Expiration Date Visits Re quested Visits Authorized [id number] Closed 11/29/2023 11/28/2024 1 1 Encounter Details Date Type Department Care Team (Latest Contact Info) Description 11/29/2023 Transcribe Orders [facility] [address] [place] [address] Yamel Garcia RN Cystic fibrosis (Multi) (Primary Dx) Social History Tobacco Use Types Packs/Day Years Used Date Smoking Tobacco: Never Smokeless Tobacco: Current Chew Alcohol Use Standard Drinks/Week Comments Yes 3 (1 standard drink = 0.6 oz pur e alcohol) [facility] Utilities Answer Date Recorded In the past 12 months has th e electric, gas, oil, or water [employer] threatened to shut off services in your [...] declined 11/22/2023 How often do you attend gnosticist or evangelical serv ices? Patient declined 11/22/2023 Do you belong to any clubs o r organizations such as gnosticist groups, unions, fraternal or athletic groups, or [...] Recorded Patient Health Questionnaire-2 Score 0 11/22/2023 [facility] of Occupat ional Health - Occupational Stress [...] place to sleep or slept in a custodial (including now)? No 11/25/2023 Sex and Gender Information Value Date Recorded Sex Assigned at Not on file Legal Sex Male 10:19 AM EST Gender Identity Not on file Sexual Orientation Not on file COVID-19 Exposure Response Date Recorded In the last 10 days, have yo u been in contact with someone who was confirmed or suspected to have Coronavirus/COVID-19? No / Unsure 11/22/2023 4:46 PM EDT documented as of this encounter Plan of Treatment Not on file documented as of this encounter Results * Spirometry (01/15/2024 12:00 PM EDT) FVC 5.70 liters [facility] Comment:104% FEV1 4.37 liters [facility] Comment:99% FEV1/FVC 77 % [facility] FEF 25-75 3.34 L/s [facility] Comment:79% PEF 12.53 L/s [facility] us Kapil Covarrubias APRN-BONDING MACHINE TENDER PFT ORDERABLES Final Resu lt [facility] documented in this encounter Visit Diagnoses Diagnosis Cystic fibrosis- Primary Cystic fibrosis without mention of meconium ileus documented in this encounter Additional Health Concerns Infection Onset Date Last Indicated Resolved Time Cystic Fibrosis 04/23/2023 04/23/2023 Assessment Noted Time A fall risk assessment has been complete d for the patient 09/18/2023 11:12 AM EDT documented as of this encounter Care Teams Millinery Blocker Relationship Specialty Start Date End Date Homero Camilo MD Referring Physician Emergency Medicine 04/24/23 Marlen Marcelo, PharmD Pharmacist Pharmacy 04/25/23 [place] [address] [place] [address] Educational Resource Coordinator Pulmonary Disease 04/25/23 Rae Faulkner, ANDREW Dietitian Nutrition 04/26/23 Lissett Adam, RAMIRO Registered Nurse Family Medicine 05/02/23 12/11/23 Ella Prasad, CHYRON OPERATOR Respiratory Therapist Respiratory Therapy 06/18/23 Elo Mercedes, CHYRON OPERATOR Respiratory Therapist Respiratory Therapy 07/11/23 Marquise Mensah MD Resident Internal Medicine 11/22/23 Virginia Soria, RAMIRO Registered Nurse Pediatric Pulmonology 12/12/23 [place] [address] [facility] Department [place] [address] Consulting Physician Pulmonary Disease 12/13/23 Kapil Covarrubias APRN-BONDING MACHINE TENDER [address] [address] [facility] Department [place] [address] Nurse Practitioner Pediatric Pulmonology 12/13/23 [place] [address] [facility] Department [place] [address] Physical Therapist Physical Therapy 01/15/24 documented as of this encounter
--- OUTSIDE RECORDS SUMMARY | 2025-02-07 01:38 | XMS_ITS | Encounter Summary ---
Author Organization [facility] Address [address] [place] [address] Phone Care Team Providers Care Staying Machine Operator Name Role Phone Homero Camilo MD Unavailable [phone] Marlen Marcelo PharmD Unavailable + [phone] Carmelita Waters MD Unavailable [phone] Unavailable Unava ilable Lissett Adam RN Unavailable Unavaila Ella Preston VP PRODUCT Unavailable Unavail able Elo Mercedes VP PRODUCT Unavailable Unavaila Marquise Rodriguez MD Unavailable [phone] Virginia Soria RN Unavailable Unavailable Madi Deras MD Unavailable +[phone] Kapil Covarrubias BANKMAN-REMNANTS CUTTER Unavailable + [phone] Shawanda Morejon PT Unavailable [phone] Encounter Details Date Type Department Care Team (Latest Contact Info) Description 09/13/2023 Specialty Pharmacy Specialty Pharmacy [address] [place] [address] Antonia Pratt Patient Contact - New Patient Referral for Cystic Fibrosis Core, Started Set Up Initial Fill - Outreach Call for Cystic Fibrosis Core Social History Tobacco Use Types Packs/Day Years Used Date Smoking Tobacco: Never Smokeless Tobacco: Current Chew Alcohol Use Standard Drinks/Week Comments Yes 3 (1 standard drink = 0.6 oz pur e alcohol) PHQ-2 Answer Date Recorded Patient Health Questionnaire-2 Score 0 04/24/2023 Sex and Gender Information Value Date Recorded [...] Indicated Resolved Time Cystic Fibrosis 04/23/2023 04/23/2023 Tuberculosis Rule-Out 04/24/2023 11/20/20232023 8:03 AM EDT COVID-19 Rule-Out 11/22/2023 11/22/2023 11/23/2023 12:21 AM EDT RSV Rule-out 11/22/2023 11/22/2023 11/23/2023 12:4 6 AM EDT Influenza Rule-out 11/22/2023 11/22/2023 12:46 AM EDT documented as of this encounter Care Teams Staying Machine Operator Relationship Specialty Start Date End Date Homero Camilo MD Referring Physician Emergency Medicine 04/24/23 Marlen Marcelo, PharmD Pharmacist Pharmacy 04/25/23 [place] [address] [place] [address] Paper Machine Supervisor Pulmonary Disease 04/25/23 Rae Faulkner, RD Dietitian Nutrition 04/26/23 Lissett Adam, RAMIRO Registered Nurse Family Medicine 05/02/23 12/11/23 Ella Prasad, VP PRODUCT Respiratory Therapist Respiratory Therapy 06/18/23 Elo Mercedes, VP PRODUCT Respiratory Therapist Respiratory Therapy 07/11/23 Marquise Mensah MD Resident Internal Medicine 11/22/23 Virginia Soria, RN Registered Nurse Pediatric Pulmonology 12/12/23 [place] [address] Department of Pediatric[place] [address] Consulting Physician Pulmonary Disease 12/13/23 Kapil Covarrubias APRN-REMNANTS CUTTER [address] Department of Pediatrics-Pulmonary [place], [place] [id number] Nurse Practitioner Pediatric Pulmonology 12/13/23 [place] [address] [address] Department of [place] [address] Physical Therapist Physical Therapy 01/15/24 documented as of this encounter
--- OUTSIDE RECORDS SUMMARY | 2025-02-07 01:38 | XMS_ITS | Encounter Summary ---
Author Organization [facility] Address [address] [place] [address] Phone Care Team Providers Care Five Roll Refiner Batch Mixer Name Role Phone Homero Camilo MD Unavailable [phone] Marlen Marcelo PharmD Unavailable [phone] Carmelita Waters MD Unavailable [phone] Unavailable Unava ilable Lissett Adam RN Unavailable Unavaila Ella Preston STAFF TOXICOLOGIST Unavailable Unavail able Elo Mercedes STAFF TOXICOLOGIST Unavailable Unavaila Marquise Rodriguez MD Unavailable [phone] Virginia Soria RN Unavailable Unavailable Madi Deras MD Unavailable [phone] Kapil Covarrubias CRITICAL CARE SPECIALIST-TECHNICAL PUBLICATIONS WRITER Unavailable [phone] Shawanda Morejon PT Unavailable [phone] Encounter Details Date Type Department Care Team (Latest Contact Info) Description 10/23/2023 Specialty Pharmacy Special[facility] [address] [place] [id number] Antonia Pratt Patient Contact - New Patient Referral for Cystic Fibrosis Core Social History Tobacco [...] suspected to have Coronavirus/COVID-19? No / Unsure 10/01/2023 12:05 PM EDT documented as of this encounter [...] Influenza Rule-out 11/22/2023 11/22/2023 12:46 AM EDT Assessment Noted Time A fall risk assessment has been complete d for the patient 09/18/2023 11:12 AM EDT documented as of this encounter Care Teams Five Roll Refiner Batch Mixer Relationship Specialty Start Date End Date Homero Camilo MD Referring Physician Emergency Medicine 04/24/23 Marlen Marcelo, PharmD Pharmacist Pharmacy 04/25/23 [place] [address] [place] [address] Nursing Program Chair Pulmonary Disease 04/25/23 Rae Faulkner, RD Dietitian Nutrition 04/26/23 Lissett Adam, RN Registered Nurse Family Medicine 05/02/23 12/11/23 Ella Prasad, STAFF TOXICOLOGIST Respiratory Therapist Respiratory Therapy 06/18/23 Elo Mercedes, STAFF TOXICOLOGIST Respiratory Therapist Respiratory Therapy 07/11/23 Marquise Mensah MD Resident Internal Medicine 11/22/23 Virginia Soria, RAMIRO Registered Nurse Pediatric Pulmonology 12/12/23 [place] [address] Department of Pediatrics-Pulmonary [place], [place] [id number] Consulting Physician Pulmonary Disease 12/13/23 Kapil Covarrubias, CRITICAL CARE SPECIALIST-TECHNICAL PUBLICATIONS WRITER [address] Department of Pediatrics-Pulmonary [place], [place] [id number] Nurse Practitioner Pediatric Pulmonology 12/13/23 [place] [address] [address] Department of Rehabilitation Services [place], [place] [id number] Physical Therapist Physical Therapy 01/15/24 documented as of this encounter
--- OUTSIDE RECORDS SUMMARY | 2025-02-07 01:38 | XMS_ITS ---
Author Organization [facility] Address [address] [place] [address] Phone Care Team Providers Care General Foreman Name Role Phone Homero Camilo MD Unavailable [phone] Marlen Marcelo PharmD Unavailable [phone] Carmelita Waters MD Unavailable [phone] Unavailable Unava ilable Ella Prasad SMOKE TESTER Unavailable Unavail able Elo Mercedes SMOKE TESTER Unavailable Unavaila Marquise Rodriguez MD Unavailable [phone] Virginia Soria RN Unavailable Unavailable Madi Deras MD Unavailable [phone] Kapil Covarrubias CIGARETTE FILTER INSPECTOR-FIRER LOCOMOTIVE Unavailable [phone] Shawanda Morejon PT Unavailable [phone] Miscellaneous Non-Core Status:Enrolled (Active) Start date:01/16/2024 Enrollment date:01/16/2024 Enrollment reason:Identified from a specialty prescription Current support & services provided:Refill Management, Benefits and PA Management Linked medications:dornase dickson (Active) Continued Care and Services Coordination
--- OUTSIDE RECORDS SUMMARY | 2025-02-07 01:38 | XMS_ITS | Encounter Summary ---
Author Organization [facility] Address [address] [place] [address] Phone Care Team Providers Care Postie Name Role Phone Homero Camilo MD Unavailable [phone] Marlen Marcelo PharmD Unavailable [phone] Carmelita Waters MD Unavailable [phone] Unavailable Unava ilElla Berry CABLE INSTALLATION TECHNICIAN Unavailable Unavail able Elo Mercedes CABLE INSTALLATION TECHNICIAN Unavailable Unavaila Marquise Rodriguez MD Unavailable [phone] Virginia Soria RN Unavailable Unavailable Madi Deras MD Unavailable [phone] Kapil Covarrubias FLUE LINING DIPPER-ELEVATOR TENDER Unavailable [phone] Shawanda Morejon PT Unavailable [phone] Encounter Details Date Type Department Care Team (Latest Contact Info) Description 07/23/2024 Specialty Pharmacy Specialty Pharmacy [address] [place] [address] Antonia Pratt Refill Coordination Outreach (23 day recurrence) - budesonide/formoterol fumarate (Symbicort), buspirone HCl (Buspar), cholecalciferol (vitamin D3) (Vitamin D-3), insulin aspart (niacinamide) (Fiasp FlexTouch U-100 Insulin), nebulizer (LC Plus), sulfamethoxazole/trimet hoprim (Bactrim DS), vit A/vit D3/E/vit E TPGS/K1 (DEKAs Essential) for Cystic Fibrosis Core, Patient Contact - Renewal - lipase/protease/amylase (Zenpep) for Cystic Fibrosis Non-Core Social History Tobacco Use Types Packs/Day Years Used Date Smoking Tobacco: Never Smokeless Tobacco: Current Chew Alcohol Use Standard Drinks/Week Comments Yes 3 (1 standard drink = 0.6 oz pur e alcohol) [facility] Utilities Answer Date Recorded In the past 12 months has e [employer], [employer], oil, or water [employer] threatened to shut off services in your [...] declined 11/22/2023 How often do you attend protestant or spiritism serv ices? Patient declined 11/22/2023 Do you belong to any clubs o r organizations such as protestant groups, unions, fraternal or athletic groups, or [...] Recorded Patient Health Questionnaire-2 Score 0 11/22/2023 [facility] of Occupat ional Health - Occupational [...] documented as of this encounter Care Teams Postie Relationship Specialty Start Date End Date Homero Camilo MD Referring Physician Emergency Medicine 04/24/23 Marlen Marcelo, PharmD Pharmacist Pharmacy 04/25/23 [place] [address] [place] [address] Rocket Engine Mechanic Pulmonary Disease 04/25/23 Rae Faulkner, RD Dietitian Nutrition 04/26/23 Ella Prasad, CABLE INSTALLATION TECHNICIAN Respiratory Therapist Respiratory Therapy 06/18/23 Elo Mercedes, CABLE INSTALLATION TECHNICIAN Respiratory Therapist Respiratory Therapy 07/11/23 Marquise Mensah MD Resident Internal Medicine 11/22/23 Virginia Soria, RN Registered Nurse Pediatric Pulmonology 12/12/23 [place] [address] [address] [facility] Department of [place] [address] Consulting Physician Pulmonary Disease 12/13/23 Kapil Covarrubias, SAMMI-MUM [address] [facility] Department [place] [address] Nurse Practitioner Pediatric Pulmonology 12/13/23 [place] [address] [address] [facility] Department [place] [address] Physical Therapist Physical Therapy 01/15/24 documented as of this encounter
--- OUTSIDE RECORDS SUMMARY | 2025-02-07 01:38 | XMS_ITS ---
Author Organization [facility] Address [address] [place] [address] Phone Care Team Providers Care Control Electrician Name Role Phone Homero Camilo MD Unavailable [phone] Marlen Marcelo PharmD Unavailable [phone] Carmelita Waters MD Unavailable [phone] Unavailable Unava ilable Ella Prasad RETURNED ITEM CLERK Unavailable Unavail able Elo Mercedes RETURNED ITEM CLERK Unavailable Unavaila Marquise Rodriguez MD Unavailable [phone] Virginia Soria RN Unavailable Unavailable Madi Deras MD Unavailable [phone] Kapil Covarrubias ASSISTANT SPEECH LANGUAGE PATHOLOGIST-CHEST PAIN COORDINATOR Unavailable [phone] Shawanda Morejon PT Unavailable [phone] Cystic Fibrosis Core Status:Enrolled (Active) Start date:04/24/2023 Enrollment date:04/24/2023 Enrollment reason:Identified from a specialty prescription Current support & services provided:Clinical Management, Refill Management, Benefits and PA Management Linked medications:elexacaftor/tezacaftor/ivacaft (Active) Linked problems:Cystic fibrosis with pulmonary manifestations (Multi) (Active) Overview CORE Program - [facility] Case Team Name Relationship Phone Marlen Marcelo PharmD(Responsible Staff) Surgeon [phone] Continued Care and Services Coordination
--- NOTE | 2025-02-07 01:39 | PC.NURSE ---
Denies CP or SOB at this time, states feels like heart is racing .
--- OUTSIDE RECORDS SUMMARY | 2025-02-07 01:39 | XMS_ITS | Encounter Summary ---
Author Organization [facility] Address [address] [place] [address] Phone Care Team Providers Care Food And Beverage Order Clerk Name Role Phone Homero Camilo MD Unavailable [phone] Marlen Marcelo PharmD Unavailable [phone] Carmelita Waters MD Unavailable [phone] Unavailable Unava ilElla Berry FOREST PRACTICES FIELD COORDINATOR Unavailable Unavail able Elo Mercedes FOREST PRACTICES FIELD COORDINATOR Unavailable Unavaila Marquise Rodriguez MD Unavailable [phone] Virginia Soria RN Unavailable Unavailable Madi Deras MD Unavailable [phone] Kapil Covarrubias PATIENT CASE MANAGER-NIGHTMAN Unavailable [phone] Shawanda Morejon PT Unavailable [phone] Encounter Details Date Type Department Care Team (Latest Contact Info) Description 12/01/2024 Specialty Pharmacy [facility] [address] [place] [id number] Althea Bruce, PharmD [address] [place] [address] Refill Coordination Outreach (90 day recurrence) - mirtazapine (Remeron) for Miscellaneous Non-Core, Started Refill Coordination Outreach (30 day recurrence) - lipase/protease/amyla se (Zenpep) for Cystic Fibrosis Non-Core Social History Tobacco Use Types Packs/Day Years Used Date Smoking Tobacco: Never Smokeless Tobacco: Current Chew Alcohol Use Standard Drinks/Week Comments Yes 3 (1 standard drink = 0.6 oz pur e alcohol) [facility] Utilities Answer Date Recorded In the past 12 months has th e electric, gas, oil, or water company threatened to [...] declined 11/22/2023 How often do you attend episcopal or sikh serv ices? Patient declined 11/22/2023 Do you belong to any clubs o r organizations such as episcopal groups, unions, fraternal or athletic groups, or [...] Recorded Patient Health Questionnaire-2 Score 0 11/22/2023 [facility] of Occupat ional Health - [...] place to sleep or slept in a detention (including now)? No 11/25/2023 Sex and Gender [...] documented as of this encounter Care Teams Food And Beverage Order Clerk Relationship Specialty Start Date End Date Iacob, Homero C, MD Referring Physician Emergency Medicine 04/24/23 Marlen Marcelo, PharmD Pharmacist Pharmacy 04/25/23 [place] [address] [place] [address] Molder Setter Pulmonary Disease 04/25/23 Rae Faulkner, ANDREW Dietitian Nutrition 04/26/23 Ella Prasad, FOREST PRACTICES FIELD COORDINATOR Respiratory Therapist Respiratory Therapy 06/18/23 Elo Mercedes, FOREST PRACTICES FIELD COORDINATOR Respiratory Therapist Respiratory Therapy 07/11/23 Marquise Mensah MD Resident Internal Medicine 11/22/23 Virginia Soria, RN Registered Nurse Pediatric Pulmonology 12/12/23 [place] [address] [address] [facility] Department [place] [address] Consulting Physician Pulmonary Disease 12/13/23 Kapil Covarrubias, PATIENT CASE MANAGER-NIGHTMAN [address] [address] [facility] Department [place] [address] Nurse Practitioner Pediatric Pulmonology 12/13/23 [place] [address] [address] [facility] Department of Rehabilitation Services [place], [place] [phone] Physical Therapist Physical Therapy 01/15/24 documented as of this encounter
--- OUTSIDE RECORDS SUMMARY | 2025-02-07 01:39 | XMS_ITS | Encounter Summary ---
Author Organization [facility] Address [address] [place] [address] Phone Care Team Providers Care Malt House Loader Name Role Phone Homero Camilo MD Unavailable [phone] Marlen Marcelo PharmD Unavailable [phone] Carmelita Waters MD Unavailable [phone] Unavailable Unava ilable Ella Prasad CRANE HOIST OR LIFT OPERATOR Unavailable Unavail able Elo Mercedes CRANE HOIST OR LIFT OPERATOR Unavailable Unavaila Marquise Rodriguez MD Unavailable [phone] Virginia Soria RN Unavailable Unavailable Madi Deras MD Unavailable [phone] Kapil Covarrubias APRN-GOLF INSTRUCTOR Unavailable [phone] Shawanda Morejon PT Unavailable [phone] Encounter Details Date Type Department Care Team (Latest Contact Info) Description 11/27/2024 Specialty Pharmacy Specialty Pharmacy [address] [place] [phone] Amparo Simpson Refill Coordination Outreach (90 day recurrence) - mirtazapine (Remeron) for Miscellaneous Non-Core, Started Refill Coordination Outreach (30 day recurrence) - lipase/protease/amyla se (Zenpep) for Cystic Fibrosis Non-Core Social History Tobacco Use Types Packs/Day Years Used Date Smoking Tobacco: Never Smokeless Tobacco: Current Chew Alcohol Use Standard Drinks/Week Comments Yes 3 (1 standard drink = 0.6 oz pur e alcohol) [facility] Utilities Answer Date Recorded In the [...] declined 11/22/2023 How often do you attend rastafari or episcopalian serv ices? Patient declined 11/22/2023 Do you belong to any clubs o r organizations such as rastafari groups, unions, fraternal or athletic groups, or [...] Recorded Patient Health Questionnaire-2 Score 0 11/22/2023 [facility] of Occupat ional Health - Occupational Stress [...] No 11/22/2023 Housing Stability Vital Sign Answer Kiek e Recorded In the last 12 months, [...] place to sleep or slept in a retirement (including now)? No 11/25/2023 Sex and Gender [...] documented as of this encounter Care Teams Malt House Loader Relationship Specialty Start Date End Date Homero Camilo MD Referring Physician Emergency Medicine 04/24/23 Marlen Marcelo, PharmD Pharmacist Pharmacy 04/25/23 [place] [address] [place] [address] Pedal Assembler Pulmonary Disease 04/25/23 Rae Faulkner, RD Dietitian Nutrition 04/26/23 Ella Prasad, CRANE HOIST OR LIFT OPERATOR Respiratory Therapist Respiratory Therapy 06/18/23 Elo Mercedes, CRANE HOIST OR LIFT OPERATOR Respiratory Therapist Respiratory Therapy 07/11/23 Marquise Mensah MD Resident Internal Medicine 11/22/23 Virginia Soria, RAMIRO Registered Nurse Pediatric Pulmonology 12/12/23 [place] [address] [facility] Department [place] [address] Consulting Physician Pulmonary Disease 12/13/23 Kapil Covarrubias APRN-[facility] [address] [facility] Department [place] [address] Nurse Practitioner Pediatric Pulmonology 12/13/23 [place] [address] [address] [facility] Department [place] [address] Physical Therapist Physical Therapy 01/15/24 documented as of this encounter
--- OUTSIDE RECORDS SUMMARY | 2025-02-07 01:39 | XMS_ITS | Clinical Summary ---
Author Organization [facility] Address [address] [facility], [address] [place] [address] Care Team Providers Care Wire Weaver Helper Name Role Phone Homero Camilo MD Primary Care Provider [phone] Allergies No known active allergies Medications albuterol (PROVENTIL) (5 MG/ML) 0.5% nebulizer solutionIndicat ions:Cystic fibrosis (HCC),Shortness of breath Take 1 mL by nebulization 4 times daily as needed for Wheezing 120 each 3 2 Active albuterol (PROVENTIL) (2.5 MG/3ML) 0.083% nebulizer solution Take 3 mLs by nebulization every 6 hours as needed for Wheezing 120 each 3 2 Active Amylase-Lipase- Protease (ULTRASE MT 20 PO) Take 25,000 Units by mouth Active Elexacaftor-Manuel acaftor-Ivacaft (TRIKAFTA PO) Take by mouth Ac tive sodium chloride, Inhalant, 7 % nebulizer solutionIndicat ions:History of cystic fibrosis,Cystic fibrosis (HCC) Take 4 mLs by nebulization as needed for Other or Cough 1 box of #60. Ok for pharmacist to substitute based on what is available/quanti ty to be dispensed please, thank you. 240 mL 1 2 Active Additional Information Patient not taking.Reported on 08/08/2021 insulin lispro, 1 Unit Dial, (HUMALOG KWIKPEN) 100 UNIT/ML SOPNIndications :Diabetes mellitus due to underlying condition with other specified complication, with long-term current use of insulin (HCC) 8 Units, 4 TIMES DAILY WITH MEALS & NIGHTLY 5 pen 1 2 Active insulin lispro, 1 Unit Dial, (HUMALOG KWIKPEN) 100 UNIT/ML SOPNIndications :Diabetes mellitus due to underlying condition with other specified complication, with long-term current use of insulin ([facility]) Inject 10 Units into the skin 4 times daily (with meals and nightly) Alternative Requested - Appears to be covered by the insurance as alternative to Insulin Aspart on [facility] EMR. Thank you. 30 mL 2 2 Active insulin glargine (LANTUS;BASAGLA R) 100 UNIT/ML injection penIndications: Diabetes mellitus due to underlying condition with other specified complication, with long-term current use of insulin ([facility]) Inject 55 Units into the skin 2 times daily 12 pen 5 2 Active ibuprofen (ADVIL;MOTRIN) 600 MG tablet Take 1 tablet by mouth 3 times daily as needed for Pain 30 tablet 2 Active acetaminophen (TYLENOL) 500 MG tablet Take 2 tablets by mouth 3 times daily for 15 days 90 tablet 2 Active Active Problems Problem Noted Date Diagnosed Date Shortness of breath 07/25/2021 Pneumonia due to infectious organism 07/25/2021 Oral thrush 07/25/2021 Cystic fibrosis 07/25/2021 Diabetes mellitus 07/25/2021 History of cystic fibrosis 07/25/2021 Resolved Problems Problem Noted Date Diagnosed Date Resolved Date Cough 07/25/2021 08/24/2021 Social History Tobacco Use Types Packs/Day Years Used Date Smoking Tobacco: Never Smokeless Tobacco: Never Overall Financial Resource Strain (CARDIA) Answe r Date Recorded How hard is it for you to pa y for the very basics like food, housing, medical care, and heating? Not hard at all 08/08/2021 PHQ-2 Answer Date Recorded PHQ-9 Total Score 0 08/08/2021 Hunger Vital Sign Answer Date Recorded Within the past 12 months, y ou worried that your food would run out before you got the money to buy more. Never true 08/08/19 22 Within the past 12 months, t he food you bought just didn't last and you didn't have money to get more. Never true 08/08/2021 PRAPARE - Transportation Answer Date Re corded In the past 12 months, has l ack of transportation kept you from medical appointments or from getting medications? No 07/2021 In the past 12 months, has l ack of transportation kept you from meetings, work, or from getting things needed for daily living? No 08/08/2021 Sex and Gender Information Value Date Recorded Sex Assigned at Not on file Legal Sex Male 12:36 PM EST Gender Identity Not on file Sexual Orientation Not on file Last Filed Vital Signs Vital Sign Reading Time Taken Comments Blood Pressure 118/60 10/27/2021 10:59 PM EDT Pulse 91 10/27/2021 10:59 PM EDT Temperature 37.7 C (99.9 F) 10/27/2021 9:29 PM EDT Respiratory Rate 28 10/27/2021 10:5 9 PM EDT Oxygen Saturation 94% 10/27/2021 10: 59 PM EDT Inhaled Oxygen Concentration - - Weight 88.3 kg (194 lb 9.6 oz) 08/08/2021 9:00 AM EST Height 185.4 cm (6' 1 ) 08/08/2021 9:00 AM EST patient states Body Mass Index 25.67 08/08/2021 9:00 AM EST Plan of Treatment Health Maintenance Due Date Last Done Comments Depression Screen 1996 Varicella vaccine (1 of 2 - 13+ 2-dose series) 1997 HIV screen 1999 Diabetic retinal exam 2002 Hepatitis C screen 2002 DTaP/Tdap/Td vaccine (1 - Tdap) 2003 Hepatitis B vaccine (1 of 3 - 19+ 3-dose series) 2003 Pneumococcal 0-49 years Vaccine (2 of 2 - PCV) 12/16/2011 12/15/2010 A1C test (Diabetic or Prediabetic) 07/26/2022 07/26/2021, 09/20/2011 Lipids 07/26/2022 07/26/2021 Diabetic Alb to Cr ratio (uACR) test 08/08/2022 08/08/2021 Diabetic foot exam 08/08/2022 08/08/2021 GFR test (Diabetes, CKD 3-4, OR last GFR 15-59) 10/27/2022 10/27/2021, 08/08/2021, 07/26/2021, Additional history exists COVID-19 Vaccine ( season) 2024 11/02/2020, 10/12/2020 Flu vaccine (#1) 02/05/2025 09/09/2019, 07/21/2018 HPV vaccine Aged Out No longer eligi ble based on patient's age to complete this topic Hepatitis A vaccine Aged Out No longe r eligible based on patient's age to complete this topic Hib vaccine Aged Out No longer eligi ble based on patient's age to complete this topic Meningococcal (ACWY) vaccine Aged Out No longer eligible based on patient's age to complete this topic Meningococcal B vaccine Aged Out No l onger eligible based on patient's age to complete this topic Polio vaccine Aged Out No longer elig ible based on patient's age to complete this topic Procedures Procedure Name Priority Date/Time Associated Diagnosis Comments BASIC METABOLIC PANEL STAT 10/27/2021 8:45 PM EDT ALBUMIN/CREATININE RATIO, URINE Routine 08/08/2021 10:06 AM EST Diabetes mellitus due to underlying condition with other specified complication, with long-term current use of insulin (HCC) LIPID PANEL Routine 07/26/2021 10:06 AM EST Diabetes mellitus due to underlying condition with other specified complication, with long-term current use of insulin (HCC) HEMOGLOBIN A1C Routine 07/26/2021 10:06 AM EST Diabetes mellitus due to underlying condition with other specified complication, with long-term current use of insulin (HCC) from Last 3 Months or Most Recently Relevant to Health Maintenance Results * (ABNORMAL) Basic Metabolic Panel (10/27/2021 8:45 PM EDT) Glucose 160(H) 70 - 99 mg/dL 10/27/2021 8:45 PM EDT [facility] BUN 13 6 - 20 mg/dL 10/27/2021 8:45 PM EDT [facility] Creatinine 0.92 0.70 - 1.20 mg/dL 10/27/2021 8:45 PM [facility] BUN/Creatinine Ratio 14 9 - 20 10/27/2021 8:45 PM [facility] Calcium 9.5 8.6 - 10.4 mg/dL 10/27/2021 8:45 PM [facility] Sodium 135 135 - 144 mmol/L 10/27/2021 8:45 PM [facility] Potassium 3.8 3.7 - 5.3 mmol/L 10/27/2021 8:45 PM [facility] Chloride 96(L) 98 - 107 mmol/L 10/27/2021 8:45 PM [facility] CO2 28 20 - 31 mmol/L 10/27/2021 8:45 PM [facility] Anion Gap 11 9 - 17 mmol/L 10/27/2021 8:45 PM [facility] GFR Non- >60 >60 mL/min 10/27/2021 8:45 PM [facility] GFR >60 >60 mL/min 10/27/2021 8:45 PM [facility] GFR Comment 10/27/2021 8:45 PM [facility] Comment: Average GFR for 30-39 years old: 107 mL/min/1.73sq m Chronic Kidney Disease: <60 mL/min/1.73sq m Kidney failure: <15 mL/min/1.73sq m eGFR calculated using average adult body mass. Additional eGFR calculator available at: http://www.[employer].Casmul/multiple_crcl_2012.htm GFR Staging 10/27/2021 8:45 PM [facility] Comment: Stage 1: Some kidney damage normal GFR Stage 2: Mild kidney damage GFR 60-89 Stage 3: Moderate kidney damage GFR 30-59 Stage 4: Severe kidney damage GFR 15-29 Stage 5: Severe kidney damage GFR <15 ESRD - chronic treatment by dialysis or transplant Blood BLOOD SPECIMEN / Unknown 10/27/2021 8:45 PM EDT 10/27/2021 8:51 PM EDT Byron Sewell DO CHEMISTRY ORDERABLES Final Res ult Performing Organization Address [facility]/ZIP Co de Phone Number [facility] [address] [place] [address], [facility] [phone] * (ABNORMAL) Microalbumin / Creatinine Urine Ratio (08/08/2021 10:06 AM EST) Albumin Urine 22(H) <21 mg/L 08/08/2021 10:06 AM EST [employer] Creatinine, Ur 54.1 39.0 - 259.0 mg/dL 08/08/2021 10:06 AM EST [employer] Microalb/Bench Lay Out Technician. Ratio 41(H) <17 mcg/mg creat 08/08/2021 10:06 AM EST [employer] URINE SPECIMEN / Unknown 08/08/2021 10:06 AM EST 08/08/2021 10:07 AM EST Homero Camilo MD URINE ORDERABLES Final Result Performing Organization Address [facility] Co de Phone Number [facility] [address] [place] [address], [facility] [phone] [place] [address], [facility] [phone] * (ABNORMAL) Hemoglobin A1C (07/26/2021 10:06 AM EST) Hemoglobin A1C 11.5(H) 4.0 - 6.0 % 07/26/2021 10:06 AM EST [employer] Estimated Avg Glucose 283 mg/dL 07/26/2021 10:06 AM EST [employer] Comment: The ADA and AACC recommend providing the estimated average glucose result to permit better patient understanding of their HBA1c result. BLOOD SPECIMEN / Unknown 07/26/2021 10:06 AM EST 07/26/2021 10:07 AM EST Homero Camilo MD CHEMISTRY ORDERABLES Final Resul t [facility] [address] [place] [address], [facility] [phone] [employer] [address] [place] [address], [facility] [phone] * (ABNORMAL) Lipid Panel (07/26/2021 10:06 AM EST) Cholesterol 120 <200 mg/dL 07/26/2021 10:06 AM [employer] Comment: Cholesterol Guidelines: <200 Desirable 200-240 Borderline >240 Undesirable HDL 33(L) >40 mg/dL 07/26/2021 10:06 AM EST [employer] Comment: HDL Guidelines: <40 Undesirable 40-59 Borderline >59 Desirable LDL Cholesterol 60 0 - 130 mg/dL 07/26/2021 10:06 AM [employer] Comment: LDL Guidelines: <100 Desirable 100-129 Near to/above Desirable 130-159 Borderline >159 Undesirable Direct (measured) LDL and calculated LDL are not interchangeable tests. Chol/HDL Ratio 3.6 <5 07/26/2021 10:06 AM EST [employer] Comment: Triglycerides 135 <150 mg/dL 07/26/2021 10:06 AM [employer] Comment: Triglyceride Guidelines: <150 Desirable 150-199 Borderline 200-499 High >499 Very high Based on AHA Guidelines for fasting triglyceride, April 2012. VLDL NOT REPORTED 1 - 30 mg/dL 07/26/2021 10:06 [address] [employer] BLOOD SPECIMEN / Unknown 07/26/2021 10:06 AM EST 07/26/2021 10:07 AM EST us Homero Camilo MD CHEMISTRY ORDERABLES Final Resul t [facility] [address] [place] [address], [facility] [phone] [employer] [address] [place] [address], [facility] [phone] from Last 3 Months or Most Recently Relevant to Health Maintenance Insurance Care Teams Wire Weaver Helper Relationship Specialty Start Date End Date Homero Camilo MD [address] [place] [address] [address] [place], [place] [id number] PCP - General Family Medicine 07/25/21
--- OUTSIDE RECORDS SUMMARY | 2025-02-07 01:39 | XMS_ITS | Encounter Summary ---
Author Organization [facility] Address [address] [place] [address] Phone Care Team Providers Care Sports Nutritionist Name Role Phone Homero Camilo MD Unavailable [phone] Marlen Marcelo PharmD Unavailable [phone] Carmelita Waters MD Unavailable [phone] Unavailable Unava ilElla Berry SKI EDGE PAINTER Unavailable Unavail able Elo Mercedes SKI EDGE PAINTER Unavailable Unavaila Marquise Rodriguez MD Unavailable [phone] Virginia Soria RN Unavailable Unavailable Paris Deras MD Unavailable [phone] Kapil Covarrubias GOLF COURSE EQUIPMENT OPERATOR-HIGH RIGGER Unavailable [phone] Shawanda Morejon PT Unavailable [phone] Reason for Visit * Reason Comments Med Refill Encounter Details Date Type Department Care Team (Late st Contact Info) Description 02/18/2024 Refill [facility] [address] [place] [id number] [place] [address] [place], [place] [phone] Cystic fibrosis (Multi); Methicillin resistant Staphylococcus aureus infection Social History Tobacco Use Types Packs/Day Years Used Date Smoking Tobacco: Never Smokeless Tobacco: Current Chew Alcohol Use Standard Drinks/Week Comments Yes 3 (1 standard drink = 0.6 oz pur e alcohol) [facility] Utilities Answer Date Recorded In the past 12 months has e electric, gas, oil, or water company [...] declined 11/22/2023 How often do you attend buddhist or orthodox serv ices? Patient declined 11/22/2023 Do you belong to any clubs o r organizations such as buddhist groups, unions, fraternal or athletic groups, or [...] Recorded Patient Health Questionnaire-2 Score 0 11/22/2023 [facility] [place] [facility] Occup[facility] ional [facility] - Occupational Stress [...] place to sleep or slept in a assisted (including now)? No 11/25/2023 Sex and Gender Information Value Date Recorded Sex Assigned at Not on file Legal Sex Male 10:19 AM EST Gender Identity Not on file Sexual Orientation Not on file documented as of this encounter Miscellaneous Notes * Telephone Encounter - Paris Deras MD - 02/18/2024 10:21 AM EDT Pulmonary Attending Cystic Fibrosis Service TMP-SMX prescription is to have on-hand. Requested Prescriptions Signed Prescriptions Disp Refills okapkjravpi-cvfedxgylu-tlfuskt (Trikafta) 100-50-75 mg tablet 84 tablet 2 Sig: Take two (2) orange tablets by mouth every morning and one (1) blue tablet by mouth every evening. Take approximately 12 hours apart with fatty foods. Authorizing Provider: PARIS DERAS sulfamethoxazole-trimethoprim (Bactrim DS) 800-160 mg tablet 56 tablet 0 Sig: Take 2 tablets by mouth 2 times a day for 14 days. Authorizing Provider: PARIS DERAS [facility] [address] [place] [address] Paris Deras MD 02/18/2024 10:22 AM * Telephone Encounter - Virginia Soria RN - 02/18/2024 9:59 AM EDT Renewal Request pended to Dr. Deras to sign. documented in this encounter Plan of Treatment Not on file documented as of this encounter Visit Diagnoses Diagnosis Cystic fibrosis Cystic fibrosis without mention of meconium ileus Methicillin resistant Staphylococcus aureus infection Methicillin resistant Staphylococcus aureus in conditions classified elsewhere and of unspecified site documented in this encounter Additional Health Concerns Infection Onset Date Last Indicated Resolved Time Cystic Fibrosis 04/23/2023 04/23/2023 Assessment Noted Time A fall risk assessment has been complete d for the patient 09/18/2023 11:12 AM EDT documented as of this encounter Care Teams Sports Nutritionist Relationship Specialty Start Date End Date Homero Camilo MD Referring Physician Emergency Medicine 04/24/23 Marlen Marcelo, PharmD Pharmacist Pharmacy 04/25/23 [place] [address] [place] [address] Fry Cook Pulmonary Disease 04/25/23 Rae Faulkner, ANDREW Dietitian Nutrition 04/26/23 Ella Prasad, SKI EDGE PAINTER Respiratory Therapist Respiratory Therapy 06/18/23 Elo Mercedes, SKI EDGE PAINTER Respiratory Therapist Respiratory Therapy 07/11/23 Marquise Mensah MD Resident Internal Medicine 11/22/23 Virginia Soria, RN Registered Nurse Pediatric Pulmonology 12/12/23 [place] [address] [address] Department [place] [address] Consulting Physician Pulmonary Disease 12/13/23 Kapil Covarrubias, SAMMI-HIGH RIGGER [address] Department [place] [address] Nurse Practitioner Pediatric Pulmonology 12/13/23 [place] [address] [address] Department [place] [address] Physical Therapist Physical Therapy 01/15/24 documented as of this encounter
--- OUTSIDE RECORDS SUMMARY | 2025-02-07 01:41 | XMS_ITS | CCD ---
Author Organization [facility] Inform ion [facility] Care Team Providers Care Exterminator Name Role Phone Kimberly, Irene Unavailable Unavailable Blake, William K Unavailable Unavailable Armstrong, Larry Unavailable Unavailable Jaleesa Allan Unavailable Unavailable Kapil Covarrubias Unavailable Unavailable GladesEli smiley Unavailable Unavailable None, No PCP Unavailable Unavailable Melanie Willson (View Only) Unavailable Unavai lable Unavailable Unavailable Unavailable Unavailable Unavailable Unavailable Kimberly, Irene Unavailable Unavailable Blake, William K Unavailable Unavailable Armstrong, Larry Unavailable Unavailable Jaleesa Allan Unavailable Unavailable Melanie Willson - View Only Unavailable Unavai lable Unavailable Unavailable Unavailable Pending Provider Unavailable Unavailable None, No PCP Unavailable Unavailable Margaret Briceño Unavailable Unavailable Unavailable Primary Care Provider Unavailabl e Pending Provider Unavailable Unavailable Unavailable Unavailable Unavailable Unavailable Mirian Camilo MD Primary Care Provider [phone] IACOB, MIRIAN Referring Unavailable IACOB, MIRIAN Primary Care Unavailable IACOB, MIIRAN Referring Unavailable IACOB, MIRIAN Primary Care Unavailable REBECCA NAYAK Attending Unavailable IACOB, MIRIAN Primary Care Unavailable HOMER SEWELL Attending Unavailable KAELYN ACUNA Attending Unavailable IACOB, MIRIAN Referring Unavailable IACOB, MIRIAN Primary Care Unavailable MARKER, DR ALDRICH Attending Unavailable MARKER, DR ALDRICH Consulting Unavailable MARKER, DR ALDRICH Admitting Unavailable REQUEST, DR JAMES LISTED Primary Care Unavaila MELANIE Moraes Consulting Unavailable MIRA NUNEZ Attending Unavailable MIRA NUNEZ Consulting Unavailable MIRA NUNEZ Admitting Unavailable MISC, DR ULLOA Primary Care Unavailable Mirian Camilo MD Unavailable [phone] Fozia PharmD, Marlen Ordaz Unavailable WaCarmelita shannon MD Unavailable Lucie RD, Rae Mary Unavailable Unava zach Adam RN, Georgina Unavailable Unavaila cade Prasad SOA ENGINEER, Ella Viky Unavailable Unavail whitley Mercedes SOA ENGINEER, Elo Marquis Unavailable Unavaila cade Mensah MD, Marquise Unavailable Ton JAMIL, Mirian Wolf Unavailable Yang RUBIO, Virginia Unavailable Unavailable Augusta JAMIL, Madi Poon Unavailable [phone] Marci [employer] ANALYST, Salbadorbárbara Unavailable [phone] Jean-Pierre PT, Shawanda L Unavailable [phone] CARMELITA WATERS Attending Unavailable CARMELITA WATERS Referring Unavailable Medications Current Medications Medication Drug Class(es) Dates Sig (Normalized) Sig (Original) acetaminophen 500 mg oral tablet (2 sources) Start: 10-27-2021 acetaminophen (TYLENOL) 500 MG tablet Start: 10-27-2021 End: 11-11-2021 take 2 tablets by mouth three times daily acetaminophen (TYLENOL) 500 MG tablet Take 2 tablets by mouth 3 times daily for 15 days 90 tablet 0 10/27/2021 11/11/2021 Active [id number] 200 actuat albuterol 0.09 mg/actuat metered dose inhaler (20 sources) beta2-Adrenergic Agonist Start: 03-31-2024 End: 04-30-2024 take 2 puff(s) by mouth every four hours albuterol 90 mcg/actuation inhaler Indications: Cystic fibrosis with pulmonary manifestations (Multi) Inhale 2 puffs by mouth every 4 hours if needed for shortness of breath (airway clearance). 18 g 11 03/31/2024 04/30/2024 Active Start: 01-21-2024 albuterol 2.5 mg /3 mL (0.083 %) nebulizer solution Indications: Cystic fibrosis with pulmonary manifestations (Multi) , Cystic fibrosis Take 3 mL (2.5 mg) by nebulization every 4 hours if needed for wheezing or shortness of breath. 540 mL 6 01/21/2024 Active Start: 11-22-2023 Start: 11-22-2023 take 2.5 mg by inhal ation every four hours as needed 2.5 mg, nebulization, Every 4 hours PRN, airway clearance, Starting on Sat11/22/23 at 1635 Start: 09-18-2023 End: 12-17-2023 take 2 puff(s) by mouth every four hours albuterol 90 mcg/actuation inhaler Indications: Cystic fibrosis with pulmonary manifestations (Multi) Inhale 2 puffs by mouth every 4 hours if needed for shortness of breath (airway clearnce). 8.5 g 09/18/2023 12/17/2023 Active Start: 09-18-2023 End: 12-17-2023 take 2 puff(s) by mouth every four hours albuterol 90 mcg/actuation inhaler Indications: Cystic fibrosis with pulmonary manifestations (Multi) Inhale 2 puffs by mouth every 4 hours if needed for shortness of breath (airway clearnce). 18 g 11 09/18/2023 12/17/2023 Active Start: 09-18-2023 End: 12-17-2023 take 2 puff(s) by inhalation every four hours albuterol 90 mcg/actuation inhaler Indications: Cystic fibrosis with pulmonary manifestations (CMS/HCC) Inhale 2 puffs every 4 hours if needed for shortness of breath (airway clearnce). 18 g 11 09/18/2023 12/17/2023 Active Start: 04-24-2023 End: 11-30-2023 albuterol 2.5 mg /3 mL (0.08 3 %) nebulizer solution Indications: Cystic fibrosis with pulmonary manifestations (Multi) Take 3 mL (2.5 mg) by nebulization [...] hours as needed Quantity: 1 Refills: 6 Jlaeesa Allan PhD Start : 28-Jul-2018 Active 8.5 GM Inhaler Start: 07-28-2018 ProAir HFA 108 (90 Base) MCG/ACT Inhalation Aerosol Solution INHALE 2 PUFFS Twice daily and every 4 hours as needed Quantity: 1 Refills: 6 Jaleesa Allan PhD Start : 28-Jul-2018 Active 8.5 GM Inhaler alteplase (Cathflo Activase) injection 2 mg (1 source) Start: 05-22-2024 2 mg, intra-ca theter, As needed, line care, Starting on Sat11/27/23 at 1415, Via PICC Line Removed by: Aspiration Inject into partial/totally occluded catheter lumen for total of 30 to 120 minute dwell time; assess patency at 30 minutes and if not patent, dwell for additional 90 minutes. If still not patent, repeat alteplase 2 mg injected into thrombotic partial or totally occluded lumen for a total of 120 minute dwell time; assess patency at 30 minutes and if not patent, dwell for 90 minutes. If still not patent, notify provider. Dilute each 2 mg vial with 2.2 mL sterile water to give 1 mg/mL final concentration. Swirl gently to mix; do not shake. amylase [id number] unt / lipase [id number] unt / protease [id number] unt delayed release oral capsule (20 sources) Start: 11-22-2023 take 3 capsules by mouth three times daily at mealtime 3 capsule, oral, 3 times daily (morning, midday, late afternoon), First dose on Sat11/22/23 at 1715, Administer whole with food and sufficient fluid; do not crush or chew. Contents may be sprinkled on soft acidic food (such as applesauce or bananas) if swallowed immediately without chewing. Start: 04-24-2023 End: 06-16-2024 pwqsbb-oprmzxtf-vuatroa (Isacc pep) 25,000-79,000- 105,000 unit capsule Indications: Cystic fibrosis with pulmonary manifestations (Multi) Take 4-5 capsules by mouth with meals and 3 capsules by mouth with snacks. Total of 24 capsules per day 800 capsule 2 04/24/2023 06/16/2024 Active Start: 04-24-2023 lipase-proteas e-amylase (Zenpep) 25,000-79,000- 105,000 unit capsule Indications: Cystic fibrosis with pulmonary manifestations (CMS/HCC) Take 3 capsules by mouth 3 times a day with meals. Take 5-7 caps with meals and 3 caps with snacks 270 capsule 2 04/24/2023 Active Start: 06-27-2016 Zenpep 26203-0 9000 UNIT Oral Capsule Delayed Release Particles Take 5-7 caps with meals and 3 caps with snacks Quantity: 500 Refills: 3 Ordered: 04-Oct-2021 Jerrell Jacobs, Jaleesa Start : 27-Jun-2016 Active Ykgytcd-Mjjxjk-Zzvprwpl (ULTRASE MT 20 PO) (1 source) Wxrqkfc-Osytzo-V rotease (ULTRASE MT 20 PO) Take 25,000 Units by mouth 0 Active Budesonide / formoterol (20 sources) Corticosteroi d, beta2-Adrener gic Agonist Start : 01-14 End: 04-18 take 2 puff(s) by mouth once daily budesonide-formoteroL (Symbicort) 80-4.5 mcg/actuation inhaler Indications: Cystic fibrosis with pulmonary manifestations (Multi) Inhale 2 puffs by mouth once daily. 8 g 01/15/2024 04/18/2024 Active Start: 09-18-2023 End: 12-17-2023 take 2 puff(s) by mouth twice daily budesonide-formoteroL (Symbicort) 80-4.5 mcg/actuation inhaler Indications: Cystic fibrosis with pulmonary manifestations (Multi) Inhale 2 puffs by mouth 2 times a day. 8 g 09/18/2023 12/17/2023 Active Start: 09-18-2023 End: 12-17-2023 take 2 puff(s) by mouth twice daily budesonide-formoteroL (Symbicort) 80-4.5 mcg/actuation inhaler Indications: Cystic fibrosis with pulmonary manifestations (Multi) Inhale 2 puffs by mouth 2 times a day. 8 g 09/18/2023 12/17/2023 Suspended Start: 09-18-2023 End: 12-12-2023 take 2 puff(s) by mouth twice daily budesonide-formoteroL (Symbicort) 80-4.5 mcg/actuation inhaler Indications: Cystic fibrosis with pulmonary manifestations (Multi) Inhale 2 puffs by mouth 2 times a day. 8 g 09/18/2023 12/12/2023 Active Start: 09-18-2023 End: 10-18-2023 take 2 puff(s) by inhalation twice daily budesonide-formoteroL (Symbicort) 80-4.5 mcg/actuation inhaler Indications: Cystic fibrosis with pulmonary manifestations (CMS/HCC) Inhale 2 puffs 2 times a day. 8 g 09/18/2023 10/18/2023 Active Start: 08-04-2018 take 2 [...] 04-Aug-2018 Active 10.2 GM Inhaler busPIRone hydrochloride 30 mg oral tablet (20 sources) Start: 01-15-2024 End: 01-14-2025 take 0.5 tablet by mouth twice daily busPIRone (Buspar) 30 mg tablet Indications: Anxiety Take 0.5 tablets (15 mg) by mouth 2 times a day. 30 tablet 01/15/2024 01/14/2025 Active Start: 09-18-2023 End: 09-17-2024 take 1 tablet by mouth twice daily busPIRone (Buspar) 5 mg tablet Indications: Anxiety , Rhinosinusitis Take 1 tablet (5 mg) by mouth 2 times a day. 60 tablet 09/18/2023 09/17/2024 Active Start: 03-09-2020 take 1 tablet by migue th every twelve hours busPIRone HCl - 10 [...] Start: 07-21-2018 take 1 tablet by migue th twice daily busPIRone HCl - 5 MG Oral Tablet TAKE 1 TABLET TWICE DAILY. Quantity: 180 Refills: 3 Jaleesa Allan PhD Start : 21-Jul-2018 Active cholecalciferol 0.125 mg oral tablet (13 sources) Vitamin D Start: 09-18-2023 End: 09-12-2024 take 1 tablet by mouth once daily cholecalciferol (Vitamin D-3) 5,000 Units tablet Indications: Cystic fibrosis with pulmonary manifestations (Multi) Take 1 tablet (5,000 Units) by mouth once daily. 30 tablet 11 09/18/2023 09/12/2024 Active dornase dickson 1 mg/ml inhalation solution (11 sources) Recombinant Human Deoxyribonuclease 1 Start: 03-31-2024 dornase Alpha (Pulmozyme) 1 mg/mL nebulizer solution Indications: Cystic fibrosis with pulmonary manifestations (Multi) Take 2.5 mg (1 vial) by nebulization once daily. 75 mL 6 03/31/2024 Active Start: 11-29-2023 dornase Alpha (Pulmozyme) 1 mg/mL nebulizer solution Indications: Cystic fibrosis with pulmonary manifestations (Multi) Take 2.5 mg by nebulization once daily. 75 mL 3 11/29/2023 Active Start: 11-24-2023 2.5 mg, nebuli zation, Daily RT, First dose on 11/24/23 at 0930 Start: 07-21-2018 take 1 dose by inhal ation once daily Pulmozyme 1 MG/ML Inhalation Solution INHALE 1 VIAL Daily Quantity: 90 Refills: 3 Eli Bush Start : 21-Jul-2018 Active 2.5 ML Plas Cont Wcfctlmmlkk-Dezrwuochy-Roczb ft (TRIKAFTA PO) (1 source) Elexacaftor-Teza caftor-Ivacaft (TRIKAFTA PO) Take by mouth 0 Active pjtwujofsrd-kizhpqfvkh-bzkmw ft (Trikafta) 100-50-75 mg tablet (12 sources) Star t: 02-05 24 take 2 tablets by mouth once daily in the morning, then take 1 tablet by mouth once daily in the evening cuceinvsumy-abyqyzwnyv-jhrzbrg (Trikafta) 100-50-75 mg tablet Indications: Cystic fibrosis Take two (2) orange tablets by mouth every morning and one (1) blue tablet by mouth every evening. Take approximately 12 hours apart with fatty foods. 84 tablet 2 02/18/2024 Active Start: 09-18-2023 take 2 tablets by mo uth once daily in the morning, then take 1 tablet by mouth once daily in the evening mhatbcppjft-cclbcnyyme-hflwmrj (Trikafta ) 100-50-75 mg tablet Indications: Cystic fibrosis (Multi) Take two (2) orange tablets by mouth every morning and one (1) blue tablet by mouth every evening. Take approximately 12 hours apart with fatty foods. 84 tablet 2 09/18/2023 Suspended Start: 09-18-2023 take 2 tablets by mo uth once daily in the morning, then take 1 tablet by mouth once daily in the evening vxdcfcawdpa-btmxjcrvvy-ljogjro (Trikafta ) 100-50-75 mg tablet Indications: Cystic fibrosis (Multi) Take two (2) orange tablets by mouth every morning and one (1) blue tablet by mouth every evening. Take approximately 12 hours apart with fatty foods. 84 tablet 2 09/18/2023 Active Start: 09-18-2023 take 2 tablets by mo uth once daily in the evening ipaqnkpplmm-edaqbnymtz-vhutvxa (Trikafta ) 100-50-75 mg tablet Indications: Cystic fibrosis (CMS/HCC) take 2 Tabs (elexacaftor 100mg/tezacaftor 50mg/ivacaftor 75mg) PO Q AM and 1 Tab (ivacaftor 150mg) PO Q Evening with fatty foods. 84 tablet 2 09/18/2023 Active 0.4 ml enoxaparin sodium 100 mg/ml prefilled syringe (1 source) Low Molecular Weight Heparin Start: 11-22-2023 inject 40 mg by subcutaneous injection once daily 40 mg, subcutaneous, Daily, First dose on Sat11/22/23 at 1945 fluticasone propionate 0.05 mg/actuat metered dose nasal spray (13 sources) Corticosteroid Start: 09-18-2023 End: 03-16-2024 take 2 spray(s) nasal route once daily fluticasone (Flonase) 50 mcg/actuation nasal spray Indications: Cystic fibrosis Administer 2 sprays into each nostril once daily. Shake gently. Before first use, prime pump. After use, clean tip and replace cap. 16 g 6 11/29/2023 Active 14 actuat fluticasone furoate 0.1 mg/actuat / vilanterol 0.025 mg/actuat dry powder inhaler (1 source) Corticosteroid, beta2-Adrenergic Agonist Start: 11-22-2023 take 1 puff(s) by inhalation once daily 1 puff, inhalation, Daily RT, First dose on Sat11/22/23 at 1715 FreeStyle Crow 3 Sensor device (9 sources) Start: 11-29-2023 FreeStyle Crow 3 Sensor device Indications: Diabetes mellitus related to CF (cystic fibrosis) (Multi) Change sensor every 14 days for glucose monitoring 2 each 11/29/2023 Active Start: 09-19-2023 End: 11-29-2023 FreeStyle Crow 3 Sensor dev ice Indications: Diabetes mellitus related to CF (cystic fibrosis) (Multi) Change sensor every 14 days for glucose monitoring 2 each 09/19/2023 11/29/2023 Discontinued Start: 09-19-2023 FreeStyle Libr e 3 Sensor device Indications: Diabetes mellitus related to CF (cystic fibrosis) (Multi) Change sensor every 14 days for glucose monitoring 2 each 09/19/2023 Suspended Start: 09-19-2023 FreeStyle Libr e 3 Sensor device Indications: Diabetes mellitus related to CF (cystic fibrosis) (Multi) Change sensor every 14 days for glucose monitoring 2 each 09/19/2023 Active Start: 09-19-2023 FreeStyle Libr e 3 Sensor device Indications: Diabetes mellitus related to CF (cystic fibrosis) ([facility]) Change sensor every 14 days for glucose monitoring 2 each 09/19/2023 Active glucagon 3 mg nasal powder (20 sources) Antihypoglycemic Agent Start: 11-29-2023 take 1 spray(s) nasal route every hour glucagon (Baqsimi) 3 mg/actuation spray,non-aerosol Indications: Type 2 diabetes mellitus with hyperglycemia, unspecified whether penitentiary insulin use (Multi) Administer 1 spray into affected nostril(s) every 1 hour if needed (For Low Blood Sugar). 2 each 11/29/2023 Active Start: 09-19-2023 End: 11-29-2023 Baqsimi 3 mg/actuation spray ,non-aerosol Indications: Diabetes mellitus related to CF (cystic fibrosis) (Multi) [place] 3 mg nasally as needed for severe hypoglycemia 2 each 3 11/29/2023 Active Start: 07-20-2016 1 mg, intramus cular, Every 15 min PRN, low blood sugar - see comments, For blood glucose less than or equal to 40 mg/dL and no IV access, Starting on Sat11/22/23 at 1824, Give until blood glucose is 100 mg/dL or greater. If patient DOES NOT HAVE secure IV access & patient is unconscious, NPO or is unable to eat or drink. 50 ml glucose 500 mg/ml prefilled syringe (2 sources) Start: 11-22-2023 12.5 g, intravenous, Every 15 min PRN, For blood glucose 41 to 70 mg/dL, Starting on Sat11/22/23 at 1824, May repeat until blood glucose level reaches 100 mg/dL or greater. Push 2 - 3 mL/minute if patient has secure IV access. ibuprofen 600 mg oral tablet (1 source) Nonsteroidal Anti-inflammatory Drug Start: 10-27-2021 take 1 tablet by mouth three times daily as needed for pain ibuprofen (ADVIL;MOTRIN) 600 MG tablet Take 1 tablet by mouth 3 times daily as needed for Pain 30 tablet 0 10/27/2021 Active 3 ml insulin lispro 100 unt/ml pen injector (20 sources) Insulin Analog Start: 11-29-2023 insulin lispro (HumaLOG) 100 unit/mL injection Indications: Type 2 diabetes mellitus with hyperglycemia, unspecified whether penitentiary insulin use (Multi) Inject 11 units prior to each meal. Adjust as directed by Endocrinology. 15 mL 3 11/29/2023 Active Start: 11-29-2023 End: 11-29-2023 insulin lispro (HumaLOG) 100 unit/mL injection Indications: Type 2 diabetes mellitus with hyperglycemia, unspecified whether penitentiary insulin use (Multi) Inject 1-4 times per day as directed. 10 each 3 11/29/2023 11/29/2023 Discontinued Start: 11-27-2023 inject 10 [IU] by da silva bcutaneous injection once 10 Units, subcutaneous, Once, On Sat11/27/23 at 2115, For 1 dose, For BS 326 Start: 11-27-2023 inject 4 [IU] by sub cutaneous injection once 4 Units, subcutaneous, Once, On Sat11/27/23 at 1930, For 1 dose Start: 11-25-2023 End: 11-26-2023 inject 8 [IU] by subcutaneous injection three times daily 8 Units, subcutaneous, 3 times daily (morning, midday, late afternoon), First dose (after last modification) on 11/25/23 at 1200 Start: 11-23-2023 End: 11-25-2023 inject 5 [IU] by subcutaneous injection three times daily 5 Units, subcutaneous, 3 times daily (morning, midday, late afternoon), First dose on 11/23/23 at 1700 Start: 11-23-2023 End: 11-28-2023 0-5 Units, subcutaneous, 3 t imes daily before meals and nightly, First dose (after last modification) on Blanche 11/28/23 at 1100, Do not hold when patient is not eating, continue order as scheduled for hyperglycemia management. Insulin Lispro Corrective Scale #1 Hypoglycemia protocol Call LIP unit(s) if Blood Glucose is between 0 - 70 mg/dL 0 unit(s) if Blood glucose is between 71-150 1 unit(s) if Blood glucose is between 151-200 2 unit(s) if Blood glucose is between 201-250 3 unit(s) if Blood glucose is between 251-300 4 unit(s) if Blood glucose is between 301-350 5 unit(s) if Blood glucose is between 351-400 Notify provider unit(s) if Blood Glucose is greater than 400 mg/dL Start: 09-19-2023 insulin lispro (HumaLOG U-100 Insulin) 100 unit/mL injection Indications: Diabetes mellitus related to CF (cystic fibrosis) (Multi) Use up to 50 units daily as [...] with long-term current use of insulin (HCC) Inject 10 Units into the skin 4 times daily (with meals and nightly) Alternative Requested - Appears to be covered by the insurance as alternative to Insulin Aspart on [facility] EMR. Thank you. 30 mL 2 08/08/2021 11/06/2021 Active Start: 07-27-2021 insulin lispro , 1 Unit Dial, (HUMALOG KWIKPEN) 100 UNIT/ML SOPN Indications: Diabetes mellitus due to underlying condition with other specified complication, with long-term current use of insulin (HCC) 8 Units, 4 TIMES DAILY WITH MEALS & NIGHTLY 5 pen 1 07/27/2021 Active 3 ml insulin aspart, human 100 unt/ml pen injector (18 sources) Insulin Analog Start: 01-15-2024 End: 01-14-2025 insulin aspart, with niacinamide, (Fiasp FlexTouch U-100 Insulin) 100 unit/mL (3 mL) injection Indications: Diabetes mellitus related to CF (cystic fibrosis) (Multi) Inject 11 Units under the skin 3 times a day before meals. Take as directed per insulin instructions. 30 mL 3 01/15/2024 01/14/2025 Active Start: 02-02-2019 NovoLOG FlexPe n 100 UNIT/ML Subcutaneous Solution Pen- injector inject up to 40 units daily for meal coverage and correction as directed by physician Quantity: 1 Refills: 3 Ordered: 19-Mar-2019 Blake JAMIL, William Monroe Start : 02-Feb-2019 Active isopropyl alcohol 0.7 ml/ml medicated pad (4 sources) Start: 11-29-2023 End: 11-28-2024 alcohol swabs pads, medicated Indications: Type 2 diabetes mellitus with hyperglycemia, unspecified whether penitentiary insulin use (Multi) Apply 1 each topically 3 times a day. 200 each 3 11/29/2023 11/28/2024 Active ivacaftor 150 mg oral tablet (5 sources) Cystic Fibrosis Transmembrane Conductance Regulator Potentiator Start: 11-25-2023 take 1 tablet by mouth once daily in the evening ivacaftor 150 mg tablet Indications: Cystic fibrosis with pulmonary manifestations (Multi) Take 1 tablet (150 mg) by mouth once daily in the evening. Take with high-fat food. 11/29/2023 Active LC Plus misc (1 source) Start: 01-20-2024 LC Plus misc Indications: Cystic fibrosis , Cystic fibrosis with pulmonary manifestations (Multi) Please dispense on Nettie LC plus nebulizer cup kit with mouthpiece with each refill of 7% Sodium Chloride for inhalation. 1 each 3 01/20/2024 Active mirtazapine 15 mg oral tablet (20 sources) Start: 04-24-2023 End: 06-30-2024 take 1 tablet by mouth once daily at bedtime mirtazapine (Remeron) 15 mg tablet Indications: Insomnia, unspecified type Take 1 tablet (15 mg) by mouth once daily at bedtime. 90 tablet 01/27/2024 06/30/2024 Active Start: 10-04-2021 take 1 tablet by migue th at bedtime Mirtazapine 15 MG Oral Tablet TAKE 1 TABLET AT BEDTIME. Quantity: 90 Refills: 1 Ordered: 04-Oct-2021 Jerrell Jacobs, Jaleesa Start : 04-Oct-2021 Active multivit with minerals-folic acid-criss K-CoQ (FLOR Plus) 200 mcg-1,000 mcg-10 mg capsule 1 capsule (1 source) Start: 11-22-2023 take 1 capsule by mouth once daily 1 capsule, oral, Daily, First dose on Sat11/22/23 at 1830 sodium chloride 70 mg/ml inhalation solution (20 sources) Start: 01-20-2024 take 1 dose by inhalation twice daily sodium chloride 7 % solution for nebulization nebulizer solution Indications: Cystic fibrosis , Cystic fibrosis with pulmonary manifestations (Multi) Inhale 1 vial via nebulizer twice a day 240 mL 3 01/20/2024 Active Start: 11-22-2023 take 3 mL by inhalat ion every twelve hours 3 mL, nebulization, Every 12 hours, First dose on Sat11/22/23 at 1715 Start: 04-24-2023 End: 11-29-2023 take 1 dose by inhalation twice daily sodium chloride 7 % solution for nebulization nebulizer solution Indications: Cystic fibrosis (Multi) , Cystic fibrosis with pulmonary manifestations (Multi) Inhale 1 vial via nebulizer twice a day 240 mL 3 11/29/2023 Active Start: 10-27-2021 End: 10-27-2021 0.9 % [...] Active 30 x 4 ML Plas Cont sulfamethoxazole 800 mg / trimethoprim 160 mg oral tablet (10 sources) Dihydrofolate Reductase Inhibitor Antibacterial, Sulfonamide Antimicrobial Start: 11-20-2023 End: 12-04-2023 take 1 tablet by mouth twice daily sulfamethoxazole-trimethoprim (Bactrim DS) 800-160 mg tablet Indications: Cystic fibrosis with pulmonary manifestations (Multi) , Staphylococcus aureus infection Take 1 tablet by mouth 2 times a day for 14 days. 28 tablet 11/20/2023 12/04/2023 Active Start: 03-11-2019 End: 10-04-2021 take 2 tablets by mouth twice daily Sulfamethoxazole-Trimethoprim 800-160 MG Oral Tablet TAKE 2 TABLET Twice daily Quantity: 56 Refills: 0 Ordered: 09-May-2020 Kapil Feldman Start : 11-Mar-2019 End : 04-Oct-2021 Complete vancomycin (Vancocin) in dextrose 5 % water (D5W) 250 mL IV 1,000 mg (2 sources) Start: 11-26-2023 take 1000 mg intravenously every eight hours 1,000 mg, intravenous, at 250 mL/hr, Administer over 60 Minutes, Every 8 hours, First dose (after last modification) on Sat11/26/23 at 1500, Mini-Bag Plus/ADD-[place] bag, Suspected Indication (Select all that apply): Pneumonia, Type of Therapy: Definitive, Based on Culture Start: 11-24-2023 End: 11-26-2023 take 1000 mg intravenously every twelve hours 1,000 mg, intravenous, at 250 mL/hr, Administer over 60 Minutes, Every 12 hours, First dose on Sat11/24/23 at 0715, Mini-Bag Plus/ADD-[place] bag, Suspected Indication (Select all that apply): Pneumonia, Type of Therapy: Definitive, Based on Culture vancomycin (Vancocin) pharmacy to dose - pharmacy monitoring (1 source) Start: 11-22-2023 miscellaneous, Daily PRN, other, Starting on Sat11/22/23 at 1719, This is a placeholder. Pharmacy will enter orders when vancomycin needs to be administered. vit A-vit D3-vit E-vit K (DEKAs Essential) 2,000 unit-2000 unit-1,000 mcg capsule capsule (6 sources) Start: 09-18-2023 End: 09-12-2024 take 1 capsule by mouth once daily vit A-vit D3-vit E-vit K (DEKAs Essential) 2,000 unit-2000 unit-1,000 mcg capsule capsule Indications: Cystic fibrosis with pulmonary manifestations (CMS/HCC) Take 1 capsule (1,000 mcg) by mouth once daily. 30 capsule 09/18/2023 09/12/2024 Active vit A-vit D3-vit E-vit K1 (DEKAs Essential) 600 mcg-50 mcg- 101 mg-1,000mcg capsule capsule (6 sources) Start: 09-18-2023 End: 09-12-2024 take 1 capsule by mouth once daily vit A-vit D3-vit E-vit K1 (DEKAs Essential) 600 mcg-50 mcg- 101 mg-1,000mcg capsule capsule Indications: Cystic fibrosis with pulmonary manifestations (Multi) Take 1 capsule (1,000 mcg) by mouth once daily. 30 capsule 09/18/2023 09/12/2024 Suspended Start: 09-18-2023 End: 09-12-2024 take 1 capsule by mouth once daily vit A-vit D3-vit E-vit K1 (DEKAs Essential) 600 mcg-50 mcg- 101 mg-1,000mcg capsule capsule Indications: Cystic fibrosis with pulmonary manifestations (Multi) Take 1 capsule (1,000 mcg) by mouth once daily. 30 capsule 09/18/2023 09/12/2024 Active Completed/Discontinued Medications Medication Drug Class(es) Dates Sig (Normalized) Sig (Original) Accu-Chek Guide w/Device Kit (15 sources) Start: 07-30-2018 Accu-Chek Guide w/Device Kit USE DIRECTED. Quantity: 1 Refills: 0 Irene Harris MD Start : 30-Jul-2018 Active AeroChamber Z-Stat Plus Chambr (15 sources) Start: 07-31-2018 AeroChamber Z-Stat Plus Chambr Please dispense aero chamber with mouthpiece. Okay to to substitute nettie vortex or opti chamber Quantity: 1 Refills: 2 Kapil Feldman Start : 31-Jul-2018 Active amylases 290355 unt / endopeptidases 36031 unt / lipase 08062 unt delayed release oral capsule (15 sources) Start: 06-27-2016 Zenpep [id number] UNIT Oral Capsule Delayed Release Particles Take [...] Start : 30-Mar-2020 End : 04-Oct-2021 Complete cefTAZidime (Fortaz) 2 g in sodium chloride 0.9% 50 mL IV (1 source) Start: 11-22-2023 End: 11-29-2023 take 2 g intravenously every eight hours 2 g, intravenous, at 100 mL/hr, Administer over 30 Minutes, Every 8 hours, First dose on Sat11/22/23 at 2115, Dosing of this medication varies based on severity of illness. Does this patient have sepsis or concern for sepsis (probable or documented infection plus systemic manifestations of infection)? No, Suspected Indication (Select all that apply): Pneumonia, Type of Therapy: Empiric colistimethate (Colymycin) 150 mg in dextrose 5 % in water (D5W) 100 mL IV (1 source) Start: 11-22-2023 End: 11-23-2023 take 150 mg intravenously every eight hours 150 mg, intravenous, Every 8 hours, First dose on Sat11/22/23 at 1715, For 6 doses, Suspected Indication (Select all that apply): Pneumonia, Type of Therapy: Empiric colistin 75 mg/ml injectable solution (17 sources) Start: 07-29-2018 inject 1 dose by inhalation twice daily Colistimethate Sodium (CBA) 150 MG Injection Solution Reconstituted Dilute each vial with 3 mL sterile water, withdraw 3 mL and add to nebulizer, inhale twice daily Quantity: 56 Refills: 1 Ordered: 16-Mar-2019 Jerrell Jacobs, Jaleesa Start : 29-Jul-2018 Active Home Care elexacaftor-tezacaft or-ivacaft (Trikafta) 100-50-75 mg per tablet 2 tablet (1 source) Start: 11-22-2023 End: 11-24-2023 take 2 tablets by mouth twice daily at mealtime 2 tablet, oral, 2 times daily, First dose on Sat11/22/23 at 2100, Take tablet whole with a fat-containing meal or snack. elexacaftor-tezacaft or-ivacaftor 100-50-75 mg per tablet 2 tablet (2 sources) Start: 11-26-2023 take 2 tablets by mouth once daily in the morning 2 tablet, oral, Every morning, First dose (after last modification) on Sat11/26/23 at 0900, ORANGE Tablet Take tablet whole with a fat-containing meal or snack., On hold since Sat11/25/2023 at 1433 until manually unheld Start: 11-24-2023 End: 11-25-2023 take 2 tablets by mouth twice daily at mealtime 2 tablet, oral, 2 times daily, First dose on Sat11/24/23 at 1400, ORANGE Tablet Take tablet whole with a fat-containing meal or snack., On hold since Sat11/25/2023 at 1433 until manually unheld 3 ml insulin glargine 100 unt/ml pen injector (20 sources) Insulin Analog Start: 01-15-2024 End: 04-01-2024 insulin glargine (Basaglar KwikPen U-100 Insulin) 100 unit/mL (3 mL) pen Indications: 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 Take as instructed. 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 Maximum daily dose 50 units 15 mL 3 11/29/2023 Active Start: 10-27-2021 End: 11-26-2021 insulin glargine (LANTUS;BAS AGLAR) 100 UNIT/ML injection pen Indications: Diabetes mellitus due to underlying condition with other specified complication, with long-term current use of insulin (HCC) Inject 55 Units into the skin 2 times daily 12 pen 5 10/27/2021 11/26/2021 Active Start: 10-04-2021 End: 09-18-2023 insulin glargine (Basaglar K wikPen U-100 Insulin) 100 unit/mL (3 mL) pen Inject 50 Units under the skin. 0 10/04/2021 09/18/2023 Discontinued (Reorder) Start: 07-21-2018 Basaglar KwikP en 100 UNIT/ML Subcutaneous Solution Pen-injector INJECT 50 UNITS TWICE DAILY DIRECTED Quantity: 6 Refills: 3 Ordered: 25-Oct-2021 Irene Harris MD Start : 25-Oct-2021 Active levalbuterol 0.417 mg/ml inhalant solution (3 [...] Start : 30-Mar-2020 End : 04-Oct-2021 Complete 50 ml magnesium sulfate 40 mg/ml injection (1 source) Start: 11-22-2023 End: 11-23-2023 2 g, intravenous, at 25 mL/hr, Administer over 2 Hours, Once, On Sat11/22/23 at 2100, For 1 dose nystatin 714553 unt/ml topical cream (17 sources) Polyene Antifungal Start: 03-11-2019 Nystatin [id number] UNIT/GM External Cream APPLY AND RUB IN A THIN FILM TO AFFECTED AREAS TWICE DAILY.(AM AND PM). Quantity: 1 Refills: 0 Ordered: 11-Mar-2019 Jaleesa Allan PhD Start : 11-Mar-2019 Active Start: 03-11-2019 Nystatin 14529 0 UNIT/GM External Cream APPLY AND RUB [...] days Quantity: 10 Refills: 1 Ordered: 09-May-2020 Marci BAUGHNLoidaCONSULTING GROUP ANALYSTKapil Start : 23-Jun-2014 Active polyethylene glycol 3350 038959 mg / potassium chloride 1480 mg / sodium bicarbonate 5720 mg / sodium chloride 70501 mg powder for oral solution (9 sources) [...] Jaleesa Allan PhD Start : 29-Jul-2018 Active tobramycin 60 mg/ml inhalant solution (3 sources) [...] Jaleesa Allan PhD Start : 09-Sep-2019 Active vancomycin (Vancocin) 1 g in dextrose 5% 250 mL IV (1 source) Start: 11-23-2023 End: 11-24-2023 take 1000 mg intravenously every twelve hours 1 g (1,000 mg), intravenous, at 250 mL/hr, Administer over 60 Minutes, Every 12 hours, First dose on 11/23/23 at 0645, Dosing of this medication varies based on severity of illness. Does this patient have sepsis or concern for sepsis (probable or documented infection plus systemic manifestations of infection)? No, Suspected Indication (Select all that apply): Pneumonia, Type of Therapy: Empiric water 1000 mg/ml injectable solution (15 sources) Start: 07-29-2018 Sterile Water for Injection Injection Solution Instill 3 ml sterile water to reconstitute each vial of Colistin Quantity: 3 Refills: 0 Jaleesa Allan PhD Start : 29-Jul-2018 Active 25 x 10 ML Vial Problems Active Problems Problem Classification Problem Date Documented Date Episodic/Chronic Administrative/socia l admission (11 sources) home worker involved; Translations: [home worker involved in patient's care] Episodic Anxiety disorders (20 sources) Anxiety; Translations: [Anxiety state, unspecified] Onset: 04-23-2023 04-23-2023 Chronic Cardiac dysrhythmias (20 sources) Paroxysmal supraventricular tachycardia; Translations: [Paroxysmal supraventricular tachycardia] Onset: 04-23-2023 04-23-2023 Chronic Cardiac dysrhythmias (11 sources) Palpitations; Translations: [Palpitations] Episodic Cystic fibrosis (20 sources) Diabetes mellitus associated with cystic fibrosis; Translations: [Exocrine pancreatic manifestation co-occurrent and due to cystic fibrosis] Onset: 07-25-2021 Resolved: 01-19-2024 07-25-2021 Chronic Diabetes mellitus with complications (4 sources) Type 1 diabetes mellitus with hyperglycemia; Translations: [Type 2 diabetes mellitus] Onset: 01-12-2022 11-26-2023 Chronic Diabetes mellitus without complication (11 sources) Diabetes mellitus; Translations: [Type 2 diabetes mellitus without complications] Onset: 07-25-2021 Resolved: 01-19-2024 07-25-2021 Chronic Fluid and electrolyte disorders (1 source) Dehydration; Translations: [Dehydration] Episodic Gastroduodenal ulcer (except hemorrhage) (20 sources) Duodenal erosion; Translations: [Duodenal ulcer, unspecified as acute or chronic, without hemorrhage or perforation, without mention of obstruction] Onset: 04-23-2023 04-23-2023 Chronic Mycoses (20 sources) Candidiasis of skin; Translations: [Candidiasis of skin and nails] Onset: 07-25-2021 07-25-2021 Episodic Nonspecific chest pain (4 sources) Other chest pain; Translations: [OTHER CHEST PAIN] Onset: 01-10-2022 Episodic Other aftercare (1 source) 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; Translations: [MANAGER BOOKS CURRENT USE OF INSULIN] Onset: 01-12-2022 Episodic Other aftercare (1 source) Other penitentiary (current) drug therapy; Translations: [OTH MANAGER BOOKS CURRENT DRUG THERAPY] Onset: 01-12-2022 Episodic Other injuries and conditions due to external causes (1 source) Lower limb nerve lesion; Translations: [Injury of unspecified nerve at lower leg level, left leg, initial encounter] Episodic Other liver diseases (20 sources) Cirrhosis of liver; Translations: [Cirrhosis of liver without mention of alcohol] Onset: 04-23-2023 04-23-2023 Chronic Other nutritional; endocrine; and metabolic disorders (10 sources) Body mass index 25-29 - overweight; Translations: [Body Mass Index 25.0-25.9, adult] Episodic Other nutritional; endocrine; and metabolic disorders (1 source) Overweight in adulthood with body mass index of 25 or more but less than 30; Translations: [Body Mass Index 25.0-25.9, adult] Episodic Other upper respiratory disease (2 sources) Allergic rhinitis due to pollen; Translations: [Allergic rhinitis due to pollen] Onset: 04-01-2024 Chronic Other upper respiratory infections (1 source) Chronic sinusitis, unspecified; Translations: [Unspecified sinusitis (chronic)] Onset: 01-19-2024 01-19-2024 Chronic Other upper respiratory infections (1 source) Acute upper respiratory infection; Translations: [Acute upper respiratory infection, unspecified] Episodic Residual codes; unclassified (1 source) Patient's [...] Other Problems Problem Classification Problem Date Documented Date Episodic/Chronic Abdominal hernia (20 sources) Bilateral inguinal hernia; Translations: [Umbilical hernia] Resolved: 12-04-2016 Episodic Administrative/social admission (15 sources) home worker involved; Translations: [home worker involved in patient's care] Bacterial infection; unspecified site (20 sources) Mycobacterial infection (excluding tuberculosis AND leprosy); Translations: [Infection by methicillin sensitive Staphylococcus aureus] Onset: 04-23-2023 09-18-2023 Episodic Immunizations and screening for infectious disease (12 sources) Patient encounter status; Translations: [Other specified vaccination] Onset: 04-23-2023 01-19-2024 Episodic Other and unspecified benign neoplasm (20 sources) Benign polyp of colon; Translations: [Benign neoplasm of colon] Onset: 04-23-2023 04-23-2023 Episodic Comment on above: Added by Problem Cira quevedo Migration; 2013-07-05; Other ear and sense organ [...] abnormal blood chemistry] Onset: 04-23-2023 04-23-2023 Episodic Pancreatic disorders (not diabetes) (1 source) Exocrine pancreatic insufficiency; Translations: [Exocrine pancreatic insufficiency] Onset: 01-19-2024 01-19-2024 Episodic Pneumonia (except that caused by tuberculosis or sexually transmitted disease) (1 source) Infective pneumonia; Translations: [Pneumonia, unspecified organism] Onset: 07-25-2021 07-25-2021 Episodic Residual codes; unclassified (20 sources) Insomnia; Translations: [Insomnia, unspecified] Onset: 04-23-2023 04-23-2023 Episodic Residual codes; unclassified (1 source) H/O: Disorder; Translations: [Personal history of other specified conditions] Onset: 07-25-2021 07-25-2021 Episodic Residual codes; unclassified (2 sources) Other general symptoms and signs; Translations: [Other general symptoms and signs] Onset: 04-01-2024 Episodic Unclassified (20 sources) Never smoked tobacco; Translations: [Never a smoker] Unclassified (12 sources) Patient encounter status; Translations: [Encounter for immunization] Unclassified (1 source) CONTACT W/AND (SUSP) EXPOS COVID-19; Translations: [CONTACT W/AND (SUSP) EXPOS COVID-19] Onset: 03-01-2022 Unclassified (12 sources) Onset: 09-18-2023 09-18-2023 NEGATED: Highlighted row has not occurred!Residual codes; unclassified (20 sources) Disease Episodic Results Test Name Value Interpretation Reference Range Facility Bacteria identifiedon 2023 Bacteria identified Cystic fibrosis respiratory culture Nom (Sput) Test: Respiratory Culture, Cystic Fibrosis Specimen Source: Throat Swab Specimen Type: Fluid Specimen Date: 04/01/2024 1026 Result Date: 04/04/2024 1132 Result Status: Final result Resulting Lab: [facility] [id number] [place] [id number] CULTURE (1+) Rare Normal throat mariza Normal [facility] Comment on above: Performed By: #### 6 23-9 #### SARAH Mcclain ([id number]) [facility] ([facility]) [address] [place] [address] Spirometryon 04-01-2024 FEV1 - Pre 4.24 [facility] Work Phone: FEV1 - Predicted 4.13 [facility] Work Phone: FVC - PRE 5.69 [facility] Work Phone: FVC Predicted 5.10 [facility] Work Phone: Normal spirometry. F EV1 of 4.24L is similar to prior FEV1 of 4.37L on 01/2024. [facility] [place] Carmelita Madison MD - 04/01/2024 Normal spirometry. FEV1 of 4.24L is similar to prior FEV1 of 4.37L on 01/2024. [facility] Work Phone: [facility] Work Phone: Acute hepatitis 2000 panel ( S)on 11-29-2023 HAV IgM Ql (S) Non-Reactive Nonreactive [facility] Comment on above: Biotin interference may cause falsely decreased results. Patients taking a Biotin dose of up to 5 mg/day should refrain from taking Biotin for 24 hours before sample collection. Providers may contact their local laboratory for further information. HBV core IgM Ql (S) Non-Reactive Nonreactive [facility] Comment on above: Results from patient s taking biotin supplements or receiving high-dose biotin therapy should be interpreted with caution due to possible interference with this test. Providers may contact their local laboratory for further information. HBV surface Ag IA Ql Non-Reactive Nonreactive [facility] Comment on above: Biotin interference may cause falsely decreased results. Patients taking a Biotin dose of up to 5 mg/day should refrain from taking Biotin for 24 hours before sample collection. Providers may contact their local laboratory for further information. HCV Ab Ql (S) Non-Reactive Nonreactive [facility] Comment on above: Results from patient s taking biotin supplements or receiving high-dose biotin therapy should be interpreted with caution due to possible interference with this test. Providers may contact their local laboratory for further information. Interpretation and review of laboratory results Normal [facility] Basic metabolic 2000 panelon 11-29-2023 Anion gap [Moles/Vol] 11 mmol/L 10 - 20 mmol/L [facility] Calcium [Mass/Vol] 8.9 mg/dL 8.6 - 10.6 mg/dL [facility] Chloride [Moles/Vol] 101 mmol/L 98 - 107 mmol/L [facility] CO2 [Moles/Vol] 27 mmol/L 21 - 32 mmol/L [facility] Creatinine [Mass/Vol] 0.62 mg/dL 0.50 - 1.30 mg/dL [facility] eGFR - PINF [facility] Comment on above: Calculations of karine mated GFR are performed using the 2020 CKD-EPI Study Refit equation without the race variable for the IDMS-Traceable creatinine methods. https://jasn.asnjournals.org/content//ASN.3313155085 Glucose [Mass/Vol] 333 mg/dL High 74 - 99 mg/dL [facility] Potassium [Moles/Vol] 4.4 mmol/L 3.5 - 5.3 mmol/L [facility] Sodium [Moles/Vol] 135 mmol/L Low 136 - 145 mmol/L [facility] Urea nitrogen [Mass/Vol] 13 mg/dL 6 - 23 mg/dL [facility] CBC W Auto Differential pane l (Bld)on 11-29-2023 Basophils (Bld) [#/Vol] 0.06 10*3/uL [facility] Basophils/100 WBC (Bld) 0.8 % 0.0 - 2.0 % [facility] Eosinophils (Bld) [#/Vol] 0.32 10*3/uL [facility] Eosinophils/100 WBC (Bld) 4.4 % 0.0 - 6.0 % [facility] Erythrocyte distribution width (RBC) [Ratio] 13.1 % 11.5 - 14.5 % [facility] Hematocrit (Bld) [Volume fraction] 41.4 % 41.0 - 52.0 % [facility] Hemoglobin (Bld) [Mass/Vol] 13.4 g/dL Low 13.5 - 17.5 g/dL [facility] Immature granulocytes (Bld) [#/Vol] 0.09 10*3/uL [facility] Immature granulocytes/100 WBC (Bld) 1.2 % High 0.0 - 0.9 % [facility] Comment on above: Immature Granulocyte Count (IG) includes promyelocytes, myelocytes and metamyelocytes but does not include bands. Percent differential counts (%) should be interpreted in the context of the absolute cell counts (cells/UL). Interpretation and review of laboratory results Abnormal [facility] Lymphocytes (Bld) [#/Vol] 1.91 10*3/uL [facility] Lymphocytes/100 WBC (Bld) 26.2 % 13.0 - 44.0 % [facility] MCH (RBC) [Entitic mass] 28.5 pg 26.0 - 34.0 pg [facility] MCHC (RBC) [Mass/Vol] 32.4 g/dL 32.0 - 36.0 g/dL [facility] MCV (RBC) [Entitic vol] 88 fL 80 - 100 fL [facility] Monocytes (Bld) [#/Vol] 0.57 10*3/uL [facility] Monocytes/100 WBC (Bld) 7.8 % 2.0 - 10.0 % [facility] Neutrophils (Bld) [#/Vol] 4.34 10*3/uL [facility] Comment on above: Percent differential counts (%) should be interpreted in the context of the absolute cell counts (cells/uL). Neutrophils/100 WBC (Bld) 59.6 % 40.0 - 80.0 % [facility] Nucleated RBC/100 WBC (Bld) [Ratio] 0.0 % [facility] Platelets (Bld) [#/Vol] 197 10*3/uL [facility] RBC (Bld) [#/Vol] 4.71 10*6/uL [facility] [place] [place] WBC (Bld) [#/Vol] 7.3 10*3/uL [facility] ECG 12 LeadOrdered By: Guerline Lopez on 11-29-2023 Atrial Rate 83 BPM [facility] Work Phone: [phone] P Colona 53 degrees [facility] Work Phone: [phone] P Offset 203 ms [facility] Work Phone: [phone] P Onset 153 ms [facility] Work Phone: [phone] NE Interval 140 ms [facility] Work Phone: [phone] Q Onset 223 ms [facility] Work Phone: [phone] QRS Count 14 beats [facility] Work Phone: [phone] QRS Duration 74 ms [facility] Work Phone: [phone] QT Interval 358 ms [facility] Work Phone: [phone] QTC Calculation(Bazet t) 420 ms [facility] Work Phone: [phone] QTC Fredericia 399 ms [facility] Work Phone: [phone] R Colona 51 degrees [facility] Work Phone: T Colona 51 degrees [facility] Work Phone: T Offset 402 ms [facility] Work Phone: Ventricular Rate 83 BPM [facility] Work Phone: [facility] Work Phone: ECG 12 Leadon 11-29-2023 Normal sinus rhythm Normal ECG When compared with ECG of 23-JUL-2016 13:21, No significant change was found Confirmed by David Lopez ([id number]) on 11/29/2023 5:45:41 PM MUSE David Lopez MD - 11/29/2023 Normal sinus rhythm Normal ECG When compared with ECG of 23-JUL-2016 13:21, No significant change was found Confirmed by David Lopez ([id number]) on 11/29/2023 5:45:41 PM [facility] Work Phone: Glucose Test strip manual (B ld) [Mass/Vol]on 11-29-2023 Glucose [Mass/Vol] 89 mg/dL 74 - 99 mg/dL [facility] Interpretation and review of laboratory results Normal [facility] Glucose [Mass/Vol] 217 mg/dL High 74 - 99 mg/dL [facility] Interpretation and review of laboratory results Abnormal [facility] Hepatic function 2000 panelo n 11-29-2023 Albumin BCP dye [Mass/Vol] 3.6 g/dL 3.4 - 5.0 g/dL [facility] ALP [Catalytic activity/Vol] 146 U/L High 33 - 120 U/L [facility] ALT With P-5'-P [Catalytic activity/Vol] 147 U/L High 10 - 52 U/L [facility] Comment on above: Patients treated wit h Sulfasalazine may generate falsely decreased results for ALT. AST With P-5'-P [Catalytic activity/Vol] 110 U/L High 9 - 39 U/L [facility] Bilirubin [Mass/Vol] 0.4 mg/dL 0.0 - 1.2 mg/dL [facility] Bilirubin.direct [Mass/Vol] 0.0 mg/dL 0.0 - 0.3 mg/dL [facility] Protein [Mass/Vol] 6.8 g/dL 6.4 - 8.2 g/dL [facility] Lipid 1996 panelon 4 Cholesterol [Mass/Vol] 119 mg/dL 0 - 199 mg/dL [facility] Comment on above: Age Desirable Borderline High High 0-19 Y [...] to Metamizole dosing. Cholesterol in HDL [Mass/Vol] 38.5 mg/dL [facility] Comment on above: Age Very Low Low Normal High 0-19 Y < 35 < 40 40-45 ---- 20-24 Y ---- < 40 >45 ---- >24 Y ---- < 40 40-60 >60 Cholesterol in LDL [Mass/Vol] 60 mg/dL NINF - 99 mg/dL [facility] Comment on above: Near Borderline AGE Desirable Optimal High High Very High 0-19 Y 0 - 109 --- 110-129 >/= 130 ---- 20-24 Y 0 - 119 --- 120-159 >/= 160 ---- >24 Y 0 - 99 100-129 130-159 160-189 >/=190 Cholesterol in VLDL [Mass/Vol] 21 mg/dL 0 - 40 mg/dL [facility] Cholesterol.total /Cholesterol in HDL [Mass ratio] 3.1 {ratio} [facility] Comment on above: Ref Values Desirable < 3.4 High Risk > 5.0 Non HDL Cholesterol 81 mg/dL 0 - 149 mg/dL [facility] Comment on above: Age Desirable Borderline High High Very High 0-19 Y 0 - 119 120 - 144 >/= 145 >/= 160 20-24 Y 0 - 149 150 - 189 >/= 190 ---- >24 Y 30 mg/dL above LDL Cholesterol goal Triglyceride [Mass/Vol] 105 mg/dL 0 - 149 mg/dL [facility] Comment on above: Age Desirable Borderline High High Very High [...] be performed immediately prior to Metamizole dosing. [facility] Magnesiumon 11-29-2023 Magnesium [Mass/Vol] 1.80 mg/dL 1.60 - 2.40 mg/dL [facility] No Panel Informationon 11-28 Interpretation and review of laboratory results Abnormal [facility] Interpretation and review of laboratory results Normal [facility] Phosphoruson 11-29-2023 Phosphate [Mass/Vol] 3.5 mg/dL 2.5 - 4.9 mg/dL [facility] Comment on above: The performance lindsay acteristics of phosphorus testing in heparinized plasma have been validated by the individual laboratory site where testing is performed. Testing on heparinized plasma is not approved by the FDA; however, such approval is not necessary. Basic metabolic 2000 panelon 11-28-2023 Anion gap [Moles/Vol] 12 mmol/L 10 - 20 mmol/L [facility] Calcium [Mass/Vol] 9.2 mg/dL 8.6 - 10.6 mg/dL [facility] Chloride [Moles/Vol] 102 mmol/L 98 - 107 mmol/L [facility] CO2 [Moles/Vol] 28 mmol/L 21 - 32 mmol/L [facility] Creatinine [Mass/Vol] 0.77 mg/dL 0.50 - 1.30 mg/dL [facility] eGFR - PINF [facility] Comment on above: Calculations of karine mated GFR are performed using the 2020 CKD-EPI Study Refit equation without the race variable for the IDMS-Traceable creatinine methods. https://jasn.asnjournals.org/content//ASN.1267133736 Glucose [Mass/Vol] 220 mg/dL High 74 - 99 mg/dL [facility] Interpretation and review of laboratory results Abnormal [facility] Potassium [Moles/Vol] 4.3 mmol/L 3.5 - 5.3 mmol/L [facility] Sodium [Moles/Vol] 138 mmol/L 136 - 145 mmol/L [facility] Urea nitrogen [Mass/Vol] 17 mg/dL 6 - 23 mg/dL [facility] Bedside PICC Imagingon 11-27 These images are not reportable by radiology and will not be interpreted by Radiologists. IMAGING CBC W Auto Differential pane l (Bld)on 11-28-2023 Basophils (Bld) [#/Vol] 0.07 10*3/uL [facility] Basophils/100 WBC (Bld) 0.8 % 0.0 - 2.0 % [facility] Eosinophils (Bld) [#/Vol] 0.36 10*3/uL [facility] Eosinophils/100 WBC (Bld) 4.0 % 0.0 - 6.0 % [facility] Erythrocyte distribution width (RBC) [Ratio] 13.2 % 11.5 - 14.5 % [facility] Hematocrit (Bld) [Volume fraction] 40.0 % Low 41.0 - 52.0 % [facility] Hemoglobin (Bld) [Mass/Vol] 12.8 g/dL Low 13.5 - 17.5 g/dL [facility] Immature granulocytes (Bld) [#/Vol] 0.08 10*3/uL [facility] Immature granulocytes/100 WBC (Bld) 0.9 % 0.0 - 0.9 % [facility] Comment on above: Immature Granulocyte Count (IG) includes promyelocytes, myelocytes and metamyelocytes but does not include bands. Percent differential counts (%) should be interpreted in the context of the absolute cell counts (cells/UL). Interpretation and review of laboratory results Abnormal [facility] Lymphocytes (Bld) [#/Vol] 2.10 10*3/uL [facility] Lymphocytes/100 WBC (Bld) 23.3 % 13.0 - 44.0 % [facility] MCH (RBC) [Entitic mass] 27.9 pg 26.0 - 34.0 pg [facility] MCHC (RBC) [Mass/Vol] 32.0 g/dL 32.0 - 36.0 g/dL [facility] MCV (RBC) [Entitic vol] 87 fL 80 - 100 fL [facility] Monocytes (Bld) [#/Vol] 0.64 10*3/uL [facility] Monocytes/100 WBC (Bld) 7.1 % 2.0 - 10.0 % [facility] Neutrophils (Bld) [#/Vol] 5.75 10*3/uL [facility] Comment on above: Percent differential counts (%) should be interpreted in the context of the absolute cell counts (cells/uL). Neutrophils/100 WBC (Bld) 63.9 % 40.0 - 80.0 % [facility] Nucleated RBC/100 WBC (Bld) [Ratio] 0.0 % [facility] Platelets (Bld) [#/Vol] 246 10*3/uL [facility] RBC (Bld) [#/Vol] 4.58 10*6/uL [facility] WBC (Bld) [#/Vol] 9.0 10*3/uL [facility] Glucose Test strip manual (B ld) [Mass/Vol]on 11-28-2023 Glucose [Mass/Vol] 330 mg/dL High 74 - 99 mg/dL [facility] Interpretation and review of laboratory results Abnormal [facility] Glucose [Mass/Vol] 230 mg/dL High 74 - 99 mg/dL [facility] Interpretation and review of laboratory results Abnormal [facility] Glucose [Mass/Vol] 273 mg/dL High 74 - 99 mg/dL [facility] Interpretation and review of laboratory results Abnormal [facility] Glucose [Mass/Vol] 198 mg/dL High 74 - 99 mg/dL [facility] Interpretation and review of laboratory results Abnormal [facility] Glucose [Mass/Vol] 230 mg/dL High 74 - 99 mg/dL [facility] Interpretation and review of laboratory results Abnormal [facility] Hepatic function 2000 panelo n 11-28-2023 Albumin BCP dye [Mass/Vol] 3.7 g/dL 3.4 - 5.0 g/dL [facility] ALP [Catalytic activity/Vol] 155 U/L High 33 - 120 U/L [facility] ALT With P-5'-P [Catalytic activity/Vol] 131 U/L High 10 - 52 U/L [facility] Comment on above: Patients treated wit h Sulfasalazine may generate falsely decreased results for ALT. AST With P-5'-P [Catalytic activity/Vol] 128 U/L High 9 - 39 U/L [facility] Bilirubin [Mass/Vol] 0.3 mg/dL 0.0 - 1.2 mg/dL [facility] Bilirubin.direct [Mass/Vol] 0.1 mg/dL 0.0 - 0.3 mg/dL [facility] Interpretation and review of laboratory results Abnormal [facility] Protein [Mass/Vol] 6.8 g/dL 6.4 - 8.2 g/dL [facility] Magnesiumon 11-28-2023 Magnesium [Mass/Vol] 1.82 mg/dL 1.60 - 2.40 mg/dL [facility] No Panel Informationon 11-27 [facility] Interpretation and review of laboratory results Normal [facility] Phosphoruson 11-28-2023 Phosphate [Mass/Vol] 3.8 mg/dL 2.5 - 4.9 mg/dL [facility] Comment on above: The performance lindsay acteristics of phosphorus testing in heparinized plasma have been validated by the individual laboratory site where testing is performed. Testing on heparinized plasma is not approved by the FDA; however, such approval is not necessary. Pulmonary function testingOr dered By: Mariah Poon on 11-28-2023 FEF 25-75 3.41 L/s [facility] Comment on above: 80% FEV1 4.30 liters [facility] Comment on above: 98% FEV1/FVC 76 % [facility] FVC 5.67 liters [facility] Comment on above: 103% PEF 11.72 L/s [facility] Vancomycinon 11-28-2023 Vancomycin [Mass/Vol] 7.5 ug/mL 5.0 - 20.0 ug/mL [facility] Vancomycin [Mass/Vol]on 11-06 Interpretation and review of laboratory results Normal [facility] Vancomycin levels can be monitored according to area under the curve (AUC) or concentration (ug/mL). The preferred monitoring strategy is determined by the patient's renal function and indication for therapy. For AUC monitoring, a random vancomycin level should be interpreted in the context of AUC rather than the concentration at a single point in time. For concentration monitoring, a trough concentration drawn immediately prior to the next dose is preferred. Therapeutic ranges using concentration-guided results: Peak (all ages): 30.0-40.0 ug/mL Trough (all ages): 10.0-20.0 ug/mL [facility] Bacteria identified Cystic f ibrosis respiratory culture Nom (Sput)Ordered By: Debbie Chappell on 11-27-2023 Interpretation and review of laboratory results Abnormal [facility] Basic metabolic 2000 panelon 11-27-2023 Anion gap [Moles/Vol] 9 mmol/L Low 10 - 20 mmol/L [facility] Calcium [Mass/Vol] 9.0 mg/dL 8.6 - 10.6 mg/dL [facility] Chloride [Moles/Vol] 105 mmol/L 98 - 107 mmol/L [facility] CO2 [Moles/Vol] 27 mmol/L 21 - 32 mmol/L [facility] Creatinine [Mass/Vol] 0.61 mg/dL 0.50 - 1.30 mg/dL [facility] eGFR - PINF [facility] Comment on above: Calculations of karine mated GFR are performed using the 2020 CKD-EPI Study Refit equation without the race variable for the IDMS-Traceable creatinine methods. https://jasn.asnjournals.org/content//ASN.5631651420 Glucose [Mass/Vol] 120 mg/dL High 74 - 99 mg/dL [facility] Potassium [Moles/Vol] 4.1 mmol/L 3.5 - 5.3 mmol/L [facility] Sodium [Moles/Vol] 137 mmol/L 136 - 145 mmol/L [facility] Urea nitrogen [Mass/Vol] 13 mg/dL 6 - 23 mg/dL [facility] CBC W Auto Differential pane l (Bld)on 11-27-2023 Basophils (Bld) [#/Vol] 0.06 10*3/uL [facility] Basophils/100 WBC (Bld) 0.8 % 0.0 - 2.0 % [facility] Eosinophils (Bld) [#/Vol] 0.33 10*3/uL [facility] Eosinophils/100 WBC (Bld) 4.4 % 0.0 - 6.0 % [facility] Erythrocyte distribution width (RBC) [Ratio] 13.1 % 11.5 - 14.5 % [facility] Hematocrit (Bld) [Volume fraction] 41.9 % 41.0 - 52.0 % [facility] Hemoglobin (Bld) [Mass/Vol] 13.8 g/dL 13.5 - 17.5 g/dL [facility] Immature granulocytes (Bld) [#/Vol] 0.06 10*3/uL [facility] Immature granulocytes/100 WBC (Bld) 0.8 % 0.0 - 0.9 % [facility] Comment on above: Immature Granulocyte Count (IG) includes promyelocytes, myelocytes and metamyelocytes but does not include bands. Percent differential counts (%) should be interpreted in the context of the absolute cell counts (cells/UL). Lymphocytes (Bld) [#/Vol] 1.99 10*3/uL [facility] Lymphocytes/100 WBC (Bld) 26.4 % 13.0 - 44.0 % [facility] MCH (RBC) [Entitic mass] 28.3 pg 26.0 - 34.0 pg [facility] MCHC (RBC) [Mass/Vol] 32.9 g/dL 32.0 - 36.0 g/dL [facility] MCV (RBC) [Entitic vol] 86 fL 80 - 100 fL [facility] Monocytes (Bld) [#/Vol] 0.60 10*3/uL [facility] Monocytes/100 WBC (Bld) 8.0 % 2.0 - 10.0 % [facility] Neutrophils (Bld) [#/Vol] 4.49 10*3/uL [facility] Comment on above: Percent differential counts (%) should be interpreted in the context of the absolute cell counts (cells/uL). Neutrophils/100 WBC (Bld) 59.6 % 40.0 - 80.0 % [facility] Nucleated RBC/100 WBC (Bld) [Ratio] 0.0 % [facility] Platelets (Bld) [#/Vol] 230 10*3/uL [facility] RBC (Bld) [#/Vol] 4.88 10*6/uL [facility] WBC (Bld) [#/Vol] 7.5 10*3/uL [facility] Glucose Test strip manual (B ld) [Mass/Vol]on 11-27-2023 Glucose [Mass/Vol] 326 mg/dL High 74 - 99 mg/dL [facility] Interpretation and review of laboratory results Abnormal [facility] Glucose [Mass/Vol] 485 mg/dL High 74 - 99 mg/dL [facility] Interpretation and review of laboratory results Abnormal [facility] Glucose [Mass/Vol] 564 mg/dL High 74 - 99 mg/dL [facility] Interpretation and review of laboratory results Abnormal [facility] Glucose [Mass/Vol] 522 mg/dL High 74 - 99 mg/dL [facility] Interpretation and review of laboratory results Abnormal [facility] Glucose [Mass/Vol] 86 mg/dL 74 - 99 mg/dL [facility] Interpretation and review of laboratory results Normal [facility] Hepatic function 2000 panelo n 11-27-2023 Albumin BCP dye [Mass/Vol] 3.5 g/dL 3.4 - 5.0 g/dL [facility] ALP [Catalytic activity/Vol] 135 U/L High 33 - 120 U/L [facility] ALT With P-5'-P [Catalytic activity/Vol] 66 U/L High 10 - 52 U/L [facility] Comment on above: Patients treated wit h Sulfasalazine may generate falsely decreased results for ALT. AST With P-5'-P [Catalytic activity/Vol] 64 U/L High 9 - 39 U/L [facility] Bilirubin [Mass/Vol] 0.4 mg/dL 0.0 - 1.2 mg/dL [facility] Bilirubin.direct [Mass/Vol] 0.0 mg/dL 0.0 - 0.3 mg/dL [facility] Protein [Mass/Vol] 6.8 g/dL 6.4 - 8.2 g/dL [facility] Magnesiumon 11-27-2023 Magnesium [Mass/Vol] 1.77 mg/dL 1.60 - 2.40 mg/dL [facility] No Panel Informationon 11-26 Interpretation and review of laboratory results Abnormal [facility] Interpretation and review of laboratory results Normal [facility] Phosphoruson 11-27-2023 Phosphate [Mass/Vol] 3.5 mg/dL 2.5 - 4.9 mg/dL [facility] Comment on above: The performance lindsay acteristics of phosphorus testing in heparinized plasma have been validated by the individual laboratory site where testing is performed. Testing on heparinized plasma is not approved by the FDA; however, such approval is not necessary. Respiratory Culture, Cystic FibrosisOrdered By: Debbie Chappell on 11-27-2023 Bacteria identified Cystic fibrosis respiratory culture Nom (Sput) (2+) Few Normal throat [facility] Bacteria identified Cystic fibrosis respiratory culture Nom (Sput) (2+) Few Methicillin Resistant Staphylococcus aureus (MRSA) Abnormal [facility] Comment on above: Methicillin (Oxacill in) resistant Staphylococci are resistant to all currently available Penicillins, Beta-lactam/Beta-lactamase inhibitor combinations (including Ampicillin/Sulbactam, Amoxicillin/Clavulanate and Pipercillin/Tazobactam), Carbapenems and Cephalosporins (except Ceftaroline). US liver with doppleron 11-06 1. Heterogenous coar se echotexture of the liver concerning for chronic liver disease/cirrhosis. Patent hepatic vasculature. 2. Findings concerning for portal hypertension, including splenomegaly, trace perisplenic fluid and slow flow within the portal venous system. I personally reviewed the images/study and I agree with the findings as stated by resident physician Dr. John Rodriguez . This study was interpreted at [place], [place]. MACRO: None Signed by: Edmond Cutler 11/27/2023 9:29 PM Dictation workstation: [id number] [facility] Interpreted By: Edmond Alva, and Evita Lopez STUDY: US LIVER WITH DOPPLER; 11/27/2023 11:10 am INDICATION: Signs/Symptoms:elevated LFTs. COMPARISON: 03/31/2020. ACCESSION NUMBER(S): [id number] ORDERING CLINICIAN: MELANIE PRADO TECHNIQUE: Multiple images of the right upper quadrant were obtained. Shea scale, color Doppler and spectral Doppler waveform analysis was performed. This examination was interpreted at [facility]. FINDINGS: LIVER: The liver measures 16.9 cm with heterogenous coarse echotexture with nodular contour. GALLBLADDER: The gallbladder is nondistended, and demonstrates no evidence of gallstones, wall thickening or surrounding fluid. The gallbladder wall thickness is 0.11 cm. Sonographic Nayak's sign is negative. BILIARY SYSTEM: No evidence of intra or extrahepatic biliary dilatation is identified; the common bile duct measures 0.23 cm. DOPPLER EVALUATION: HEPATIC ARTERIES: Hepatic artery and its right and left branches RI's are estimated at 0.81, 0.79 and 0.65, respectively. PORTAL VEIN: Portal vein is patent and measures 1.6 cm. There is normal respiratory variation. Portal vein velocities are calculated as follows: main portal vein 24.3 cm/s, antegrade flow; left portal vein branch 6.0 cm/s, antegrade flow; right portal vein anterior branch 13.1 cm/s, antegrade flow; right portal vein posterior branch 22.7 cm/s, antegrade flow. The splenic vein is also patent. HEPATIC VEIN: The right, middle and left hepatic veins are patent and demonstrate biphasic in the left hepatic vein and monophasic in the main hepatic and right hepatic veins with antegrade flow. IVC appears also patent. PANCREAS: The pancreas is poorly visualized due to overlying bowel gas. RIGHT KIDNEY: The right kidney measures 11.9 cm in length. No hydronephrosis or renal calculi are seen. SPLEEN: The spleen measures 13.9 cm and is grossly unremarkable. PERITONEUM AND RETROPERITONEUM: There is trace free fluid adjacent to the spleen. [facility] Edmond Cutler MD - 11/27/2023 Interpreted By: Edmond Cutler, Jose Lopez STUDY: US LIVER WITH DOPPLER; 11/27/2023 11:10 am INDICATION: Signs/Symptoms:elevated LFTs. COMPARISON: 03/31/2020. ACCESSION NUMBER(S): [id number] ORDERING CLINICIAN: MELANIE PRADO TECHNIQUE: Multiple images of the right upper quadrant were obtained. Shea scale, color Doppler and spectral Doppler waveform analysis was performed. This examination was interpreted at [facility]. FINDINGS: LIVER: The liver measures 16.9 cm with heterogenous coarse echotexture with nodular contour. GALLBLADDER: The gallbladder is nondistended, and demonstrates no evidence of gallstones, wall thickening or surrounding fluid. The gallbladder wall thickness is 0.11 cm. Sonographic Nayak's sign is negative. BILIARY SYSTEM: No evidence of intra or extrahepatic biliary dilatation is identified; the common bile duct measures 0.23 cm. DOPPLER EVALUATION: HEPATIC ARTERIES: Hepatic artery and its right and left branches RI's are estimated at 0.81, 0.79 and 0.65, respectively. PORTAL VEIN: Portal vein is patent and measures 1.6 cm. There is normal respiratory variation. Portal vein velocities are calculated as follows: main portal vein 24.3 cm/s, antegrade flow; left portal vein branch 6.0 cm/s, antegrade flow; right portal vein anterior branch 13.1 cm/s, antegrade flow; right portal vein posterior branch 22.7 cm/s, antegrade flow. The splenic vein is also patent. HEPATIC VEIN: The right, middle and left hepatic veins are patent and demonstrate biphasic in the left hepatic vein and monophasic in the main hepatic and right hepatic veins with antegrade flow. IVC appears also patent. PANCREAS: The pancreas is poorly visualized due to overlying bowel gas. RIGHT KIDNEY: The right kidney measures 11.9 cm in length. No hydronephrosis or renal calculi are seen. SPLEEN: The spleen measures 13.9 cm and is grossly unremarkable. PERITONEUM AND RETROPERITONEUM: There is trace free fluid adjacent to the spleen. IMPRESSION: 1. Heterogenous coarse echotexture of the liver concerning for chronic liver disease/cirrhosis. Patent hepatic vasculature. 2. Findings concerning for portal hypertension, including splenomegaly, trace perisplenic fluid and slow flow within the portal venous system. I personally reviewed the images/study and I agree with the findings as stated by resident physician Dr. John Rodriguez . This study was interpreted at [place], [place]. MACRO: None Signed by: Edmond Cutler 11/27/2023 9:29 PM Dictation workstation: [id number] [facility] Work Phone: Radiology Study observation (narrative) [facility] Work Phone: US liver with dopplerOrdered By: Edmond Cutler on 11-27-2023 [facility] Work Phone: Aspergillus galactomannan an tigenon 11-26-2023 Aspergillus Galactomanan EIA,S 0.037 NINF - 0.500 [facility] Comment on above: Interpretation: Shanon ents with an index value of greater than or equal to 0.5 are considered to be positive for galactomannan antigen. The Platelia(TM) Aspergillus EIA package insert also recommends a new sample be collected from the patient for follow-up testing. Patients with an index value of less than 0.5 are considered to be negative for galactomannan antigen. A negative result may indicate that the patient's result is below the detectable level of the assay. Negative results do not rule out the diagnosis of Invasive Aspergillosis. Pursuant to the package insert, repeat testing is recommended if the result is negative, but the disease is suspected. Due to the potential for environmental contamination when transferred to pour-off tubes, which can lead to false positive results, interpret positive results from samples provided in pour-off tubes with caution. Results should be used in conjunction with clinical findings, and should not form the sole basis for a diagnosis or treatment decision. The Platelia Aspergillus Galactomannan EIA is a product of [employer] and is FDA approved for in vitro diagnostic use. Testing Performed at: [facility] [address] [place] [address], [address] [place] [address] Jaw Skinner: Pavan Mares, PhD BCLHang (ABB) CLIA # [id number] FLAG Interpretation: A = Abnormal, H = High, L = Low [facility] Comprehensive metabolic 2000 panelon 11-26-2023 Albumin BCP dye [Mass/Vol] 3.5 g/dL 3.4 - 5.0 g/dL [facility] ALP [Catalytic activity/Vol] 132 U/L High 33 - 120 U/L [facility] ALT With P-5'-P [Catalytic activity/Vol] 55 U/L High 10 - 52 U/L [facility] Comment on above: Patients treated wit h Sulfasalazine may generate falsely decreased results for ALT. Anion gap [Moles/Vol] 12 mmol/L 10 - 20 mmol/L [facility] AST With P-5'-P [Catalytic activity/Vol] 52 U/L High 9 - 39 U/L [facility] Bilirubin [Mass/Vol] 0.4 mg/dL 0.0 - 1.2 mg/dL [facility] Calcium [Mass/Vol] 9.0 mg/dL 8.6 - 10.6 mg/dL [facility] Chloride [Moles/Vol] 103 mmol/L 98 - 107 mmol/L [facility] CO2 [Moles/Vol] 23 mmol/L 21 - 32 mmol/L [facility] Creatinine [Mass/Vol] 0.65 mg/dL 0.50 - 1.30 mg/dL [facility] eGFR - PINF [facility] Comment on above: Calculations of karine mated GFR are performed using the 2020 CKD-EPI Study Refit equation without the race variable for the IDMS-Traceable creatinine methods. https://jasn.asnjournals.org/content//ASN.7546114238 Glucose [Mass/Vol] 216 mg/dL High 74 - 99 mg/dL [facility] Interpretation and review of laboratory results Abnormal [facility] Potassium [Moles/Vol] 4.2 mmol/L 3.5 - 5.3 mmol/L [facility] Protein [Mass/Vol] 6.9 g/dL 6.4 - 8.2 g/dL [facility] Sodium [Moles/Vol] 134 mmol/L Low 136 - 145 mmol/L [facility] Urea nitrogen [Mass/Vol] 15 mg/dL 6 - 23 mg/dL [facility] Fungitell Beta-D Glucan Seru mon 11-26-2023 Fungitell Beta-D Glucan,Serum <31 NINF - 80 pg/mL [facility] Comment on above: Interpretation: The Fungitell assay does not detect certain fungal species such as the genus Cryptococcus (Dariana et al. 1991) which produces very low levels of (1-3)-Gsrf-F-Ugusrb. The assay also does not detect the Zygomycetes such as Absidia, Mucor and Rhizopus (Hill et al. 1994) which are not known to produce (1-3)-Kmsj-D-Dkkfau. In addition, the yeast phase of Blastomyces dermatitidis produces little (1-3)-Padw-A-Dvuqwa and may not be detected by the assay (Cipriano et al. 2007). Reference Range: Less than 60 pg/mL. Glucan values of less than 60 pg/mL are interpreted as negative. Glucan values of 60 to 79 pg/mL are interpreted as indeterminate, and suggest a possible fungal infection. Additional sampling and testing of sera is required to interpret the results. Glucan values of greater than or equal to 80 pg/mL are interpreted as positive. Due to the potential for environmental contamination when transferred to pour-off tubes, which can lead to false positive results, interpret positive results from samples provided in pour-off tubes with caution. Results should be used in conjunction with clinical findings, and should not form the sole basis for a diagnosis or treatment decision. The Fungitell test is approved or cleared for in vitro diagnostic use by the [place] Food and Drug Administration. Modifications to the approved package insert have been made and the performance characteristics for these modifications were determined by [employer]. If sample result is greater than 500 pg/mL, physician may order a titer of the sample. Please contact [email or web address] if you would like to order a retest of this sample to obtain an actual value. Samples are held for 1 week after initial testing date. Testing Performed at: [facility] [address] [place] [address], [address] [place] [address] Jaw Skinner: Pavan Mares, PhD BCLHang (ABB) CLIA # [id number] FLAG Interpretation: A = Abnormal, H = High, L = Low [facility] Glucose Test strip manual (B ld) [Mass/Vol]on 11-26-2023 Glucose [Mass/Vol] 177 mg/dL High 74 - 99 mg/dL [facility] Interpretation and review of laboratory results Abnormal [facility] Glucose [Mass/Vol] 289 mg/dL High 74 - 99 mg/dL [facility] Interpretation and review of laboratory results Abnormal [facility] Glucose [Mass/Vol] 407 mg/dL High 74 - 99 mg/dL [facility] Interpretation and review of laboratory results Abnormal [facility] Glucose [Mass/Vol] 214 mg/dL High 74 - 99 mg/dL [facility] Interpretation and review of laboratory results Abnormal [facility] No Panel Informationon 11-25 [facility] Vancomycinon 11-26-2023 Vancomycin [Mass/Vol] 6.6 ug/mL 5.0 - 20.0 ug/mL [facility] Vancomycin [Mass/Vol]on 11-06 Interpretation and review of laboratory results Normal [facility] Vancomycin levels can be monitored according to area under the curve (AUC) or concentration (ug/mL). The preferred monitoring strategy is determined by the patient's renal function and indication for therapy. For AUC monitoring, a random vancomycin level should be interpreted in the context of AUC rather than the concentration at a single point in time. For concentration monitoring, a trough concentration drawn immediately prior to the next dose is preferred. Therapeutic ranges using concentration-guided results: Peak (all ages): 30.0-40.0 ug/mL Trough (all ages): 10.0-20.0 ug/mL [facility] CBC W Auto Differential pane l (Bld)on 11-25-2023 Basophils (Bld) [#/Vol] 0.05 10*3/uL [facility] Basophils/100 WBC (Bld) 0.6 % 0.0 - 2.0 % [facility] Eosinophils (Bld) [#/Vol] 0.34 10*3/uL [facility] Eosinophils/100 WBC (Bld) 4.4 % 0.0 - 6.0 % [facility] Erythrocyte distribution width (RBC) [Ratio] 13.0 % 11.5 - 14.5 % [facility] Hematocrit (Bld) [Volume fraction] 45.5 % 41.0 - 52.0 % [facility] Hemoglobin (Bld) [Mass/Vol] 14.6 g/dL 13.5 - 17.5 g/dL [facility] Immature granulocytes (Bld) [#/Vol] 0.04 10*3/uL [facility] Immature granulocytes/100 WBC (Bld) 0.5 % 0.0 - 0.9 % [facility] Comment on above: Immature Granulocyte Count (IG) includes promyelocytes, myelocytes and metamyelocytes but does not include bands. Percent differential counts (%) should be interpreted in the context of the absolute cell counts (cells/UL). Lymphocytes (Bld) [#/Vol] 2.71 10*3/uL [facility] Lymphocytes/100 WBC (Bld) 35.1 % 13.0 - 44.0 % [facility] MCH (RBC) [Entitic mass] 27.3 pg 26.0 - 34.0 pg [facility] MCHC (RBC) [Mass/Vol] 32.1 g/dL 32.0 - 36.0 g/dL [facility] MCV (RBC) [Entitic vol] 85 fL 80 - 100 fL [facility] Monocytes (Bld) [#/Vol] 0.71 10*3/uL [facility] Monocytes/100 WBC (Bld) 9.2 % 2.0 - 10.0 % [facility] Neutrophils (Bld) [#/Vol] 3.86 10*3/uL [facility] Comment on above: Percent differential counts (%) should be interpreted in the context of the absolute cell counts (cells/uL). Neutrophils/100 WBC (Bld) 50.2 % 40.0 - 80.0 % [facility] Nucleated RBC/100 WBC (Bld) [Ratio] 0.0 % [facility] Platelets (Bld) [#/Vol] 259 10*3/uL [facility] RBC (Bld) [#/Vol] 5.34 10*6/uL [facility] WBC (Bld) [#/Vol] 7.7 10*3/uL [facility] Comprehensive metabolic 2000 panelon 11-25-2023 Albumin BCP dye [Mass/Vol] 3.9 g/dL 3.4 - 5.0 g/dL [facility] ALP [Catalytic activity/Vol] 141 U/L High 33 - 120 U/L [facility] ALT With P-5'-P [Catalytic activity/Vol] 57 U/L High 10 - 52 U/L [facility] Comment on above: Patients treated wit h Sulfasalazine may generate falsely decreased results for ALT. Anion gap [Moles/Vol] 13 mmol/L 10 - 20 mmol/L [facility] AST With P-5'-P [Catalytic activity/Vol] 64 U/L High 9 - 39 U/L [facility] Bilirubin [Mass/Vol] 0.4 mg/dL 0.0 - 1.2 mg/dL [facility] Calcium [Mass/Vol] 9.3 mg/dL 8.6 - 10.6 mg/dL [facility] Chloride [Moles/Vol] 104 mmol/L 98 - 107 mmol/L [facility] CO2 [Moles/Vol] 23 mmol/L 21 - 32 mmol/L [facility] Creatinine [Mass/Vol] 0.68 mg/dL 0.50 - 1.30 mg/dL [facility] eGFR - PINF [facility] Comment on above: Calculations of karine mated GFR are performed using the 2020 CKD-EPI Study Refit equation without the race variable for the IDMS-Traceable creatinine methods. https://jasn.asnjournals.org/content/early/ASN.4575162184 Glucose [Mass/Vol] 137 mg/dL High 74 - 99 mg/dL [facility] Interpretation and review of laboratory results Abnormal [facility] Potassium [Moles/Vol] 4.1 mmol/L 3.5 - 5.3 mmol/L [facility] Protein [Mass/Vol] 7.5 g/dL 6.4 - 8.2 g/dL [facility] Sodium [Moles/Vol] 136 mmol/L 136 - 145 mmol/L [facility] Urea nitrogen [Mass/Vol] 14 mg/dL 6 - 23 mg/dL [facility] Glucose Test strip manual (B ld) [Mass/Vol]on 11-25-2023 Glucose [Mass/Vol] 207 mg/dL High 74 - 99 mg/dL [facility] Interpretation and review of laboratory results Abnormal [facility] Glucose [Mass/Vol] 294 mg/dL High 74 - 99 mg/dL [facility] Interpretation and review of laboratory results Abnormal [facility] Glucose [Mass/Vol] 261 mg/dL High 74 - 99 mg/dL [facility] Interpretation and review of laboratory results Abnormal [facility] Glucose [Mass/Vol] 118 mg/dL High 74 - 99 mg/dL [facility] Interpretation and review of laboratory results Abnormal [facility] Magnesiumon 11-25-2023 Magnesium [Mass/Vol] 1.87 mg/dL 1.60 - 2.40 mg/dL [facility] Magnesium [Mass/Vol]on 11-24 Interpretation and review of laboratory results Normal [facility] No Panel Informationon 11-24 [facility] Comprehensive metabolic 2000 panelon 11-24-2023 Albumin BCP dye [Mass/Vol] 3.5 g/dL 3.4 - 5.0 g/dL [facility] ALP [Catalytic activity/Vol] 133 U/L High 33 - 120 U/L [facility] ALT With P-5'-P [Catalytic activity/Vol] 32 U/L 10 - 52 U/L [facility] Comment on above: Patients treated wit h Sulfasalazine may generate falsely decreased results for ALT. Anion gap [Moles/Vol] 13 mmol/L 10 - 20 mmol/L [facility] AST With P-5'-P [Catalytic activity/Vol] 36 U/L 9 - 39 U/L [facility] Bilirubin [Mass/Vol] 0.4 mg/dL 0.0 - 1.2 mg/dL [facility] Calcium [Mass/Vol] 8.8 mg/dL 8.6 - 10.6 mg/dL [facility] Chloride [Moles/Vol] 102 mmol/L 98 - 107 mmol/L [facility] CO2 [Moles/Vol] 24 mmol/L 21 - 32 mmol/L [facility] Creatinine [Mass/Vol] 0.81 mg/dL 0.50 - 1.30 mg/dL [facility] eGFR - PINF [facility] Comment on above: Calculations of karine mated GFR are performed using the 2020 CKD-EPI Study Refit equation without the race variable for the IDMS-Traceable creatinine methods. https://jasn.asnjournals.org/content/early/ASN.9540875804 Glucose [Mass/Vol] 357 mg/dL High 74 - 99 mg/dL [facility] Interpretation and review of laboratory results Abnormal [facility] Potassium [Moles/Vol] 4.4 mmol/L 3.5 - 5.3 mmol/L [facility] Protein [Mass/Vol] 6.7 g/dL 6.4 - 8.2 g/dL [facility] Sodium [Moles/Vol] 135 mmol/L Low 136 - 145 mmol/L [facility] Urea nitrogen [Mass/Vol] 19 mg/dL 6 - 23 mg/dL [facility] Glucose Test strip manual (B ld) [Mass/Vol]on 11-24-2023 Glucose [Mass/Vol] 255 mg/dL High 74 - 99 mg/dL [facility] Interpretation and review of laboratory results Abnormal [facility] Glucose [Mass/Vol] 225 mg/dL High 74 - 99 mg/dL [facility] Interpretation and review of laboratory results Abnormal [facility] Glucose [Mass/Vol] 386 mg/dL High 74 - 99 mg/dL [facility] Interpretation and review of laboratory results Abnormal [facility] Glucose [Mass/Vol] 138 mg/dL High 74 - 99 mg/dL [facility] Interpretation and review of laboratory results Abnormal [facility] Magnesiumon 11-24-2023 Magnesium [Mass/Vol] 1.97 mg/dL 1.60 - 2.40 mg/dL [facility] Magnesium [Mass/Vol]on 11-23 Interpretation and review of laboratory results Normal [facility] No Panel Informationon 11-23 [facility] FLUAV and FLUBV RNA CAROL+prob e Nom (Unsp spec)on 11-23-2023 FLUAV RNA CAROL+probe Ql (Resp) Not detected Not Detected [facility] FLUBV RNA CAROL+probe Ql (Resp) Not detected Not Detected [facility] This assay is an in vitro diagnostic multiplex nucleic acid amplification test for the detection and discrimination of Influenza A & B from nasopharyngeal specimens, and has been validated for use at [facility]. Negative results do not preclude Influenza A/B infections, and should not be used as the sole basis for diagnosis, treatment, or other management decisions. If Influenza A/B and RSV PCR results are negative, testing for Parainfluenza virus, Adenovirus and Metapneumovirus is routinely performed for [facility] pediatric oncology and intensive care inpatients, and is available on other patients by placing an add-on request. [facility] Glucose Test strip manual (B ld) [Mass/Vol]on 11-23-2023 Glucose [Mass/Vol] 207 mg/dL High 74 - 99 mg/dL [facility] Interpretation and review of laboratory results Abnormal [facility] Glucose [Mass/Vol] 275 mg/dL High 74 - 99 mg/dL [facility] Interpretation and review of laboratory results Abnormal [facility] Glucose [Mass/Vol] 356 mg/dL High 74 - 99 mg/dL [facility] Interpretation and review of laboratory results Abnormal [facility] Glucose [Mass/Vol] 129 mg/dL High 74 - 99 mg/dL [facility] Interpretation and review of laboratory results Abnormal [facility] No Panel Informationon 11-22 Interpretation and review of laboratory results Normal [facility] RSV PCRon 11-23-2023 RSV RNA CAROL+probe Ql (Resp) Not detected Not Detected [facility] RSV RNA CAROL+probe Ql (Resp)o n 11-23-2023 This assay is an FDA-cleared, in vitro diagnostic nucleic acid amplification test for the detection of RSV from nasopharyngeal specimens, and has been validated for use at [facility]. Negative results do not preclude RSV infections, and should not be used as the sole basis for diagnosis, treatment, or other management decisions. If Influenza A/B and RSV PCR results are negative, testing for Parainfluenza virus, Adenovirus and Metapneumovirus is routinely performed for pediatric oncology and intensive care inpatients at [facility], and is available on other patients by placing an add-on request. [facility] SARS-CoV-2 (COVID-19) RNA NA A+probe Ql (Resp)Ordered By: Alice Fermin on 11-23-2023 Interpretation and review of laboratory results Normal [facility] This assay has recei jeane FDA Emergency Use Authorization (EUA) and is only authorized for the duration of time that circumstances exist to justify the authorization of the emergency use of in vitro diagnostic tests for the detection of SARS-CoV-2 virus and/or diagnosis of COVID-19 infection under section 564(b)(1) of the Act, 21 U.S.C. 360bbb-3(b)(1). This assay is an in vitro diagnostic nucleic acid amplification test for the qualitative detection of SARS-CoV-2 from nasopharyngeal specimens and has been validated for use at [facility]. Negative results do not preclude COVID-19 infections and should not be used as the sole basis for diagnosis, treatment, or other management decisions. [facility] Sars-CoV-2 PCROrdered By: Aubrey Fermin on 11-23-2023 SARS-CoV-2 (COVID-19) RNA CAROL+probe Ql (Resp) Not detected Not Detected [facility] Vancomycinon 11-23-2023 Vancomycin [Mass/Vol] 11.9 ug/mL 5.0 - 20.0 ug/mL [facility] Vancomycin [Mass/Vol]on 11-05 Interpretation and review of laboratory results Normal [facility] Vancomycin levels can be monitored according to area under the curve (AUC) or concentration (ug/mL). The preferred monitoring strategy is determined by the patient's renal function and indication for therapy. For AUC monitoring, a random vancomycin level should be interpreted in the context of AUC rather than the concentration at a single point in time. For concentration monitoring, a trough concentration drawn immediately prior to the next dose is preferred. Therapeutic ranges using concentration-guided results: Peak (all ages): 30.0-40.0 ug/mL Trough (all ages): 10.0-20.0 ug/mL [facility] CBC W Auto Differential pane l (Bld)on 11-22-2023 Basophils (Bld) [#/Vol] 0.05 10*3/uL [facility] Basophils/100 WBC (Bld) 0.5 % 0.0 - 2.0 % [facility] Eosinophils (Bld) [#/Vol] 0.26 10*3/uL [facility] Eosinophils/100 WBC (Bld) 2.4 % 0.0 - 6.0 % [facility] Erythrocyte distribution width (RBC) [Ratio] 13.0 % 11.5 - 14.5 % [facility] Hematocrit (Bld) [Volume fraction] 48.6 % 41.0 - 52.0 % [facility] Hemoglobin (Bld) [Mass/Vol] 15.2 g/dL 13.5 - 17.5 g/dL [facility] Immature granulocytes (Bld) [#/Vol] 0.04 10*3/uL [facility] Immature granulocytes/100 WBC (Bld) 0.4 % 0.0 - 0.9 % [facility] Comment on above: Immature Granulocyte Count (IG) includes promyelocytes, myelocytes and metamyelocytes but does not include bands. Percent differential counts (%) should be interpreted in the context of the absolute cell counts (cells/UL). Interpretation and review of laboratory results Abnormal [facility] Lymphocytes (Bld) [#/Vol] 2.08 10*3/uL [facility] Lymphocytes/100 WBC (Bld) 19.3 % 13.0 - 44.0 % [facility] MCH (RBC) [Entitic mass] 27.3 pg 26.0 - 34.0 pg [facility] MCHC (RBC) [Mass/Vol] 31.3 g/dL Low 32.0 - 36.0 g/dL [facility] MCV (RBC) [Entitic vol] 87 fL 80 - 100 fL [facility] Monocytes (Bld) [#/Vol] 0.71 10*3/uL [facility] Monocytes/100 WBC (Bld) 6.6 % 2.0 - 10.0 % [facility] Neutrophils (Bld) [#/Vol] 7.66 10*3/uL [facility] Comment on above: Percent differential counts (%) should be interpreted in the context of the absolute cell counts (cells/uL). Neutrophils/100 WBC (Bld) 70.8 % 40.0 - 80.0 % [facility] Nucleated RBC/100 WBC (Bld) [Ratio] 0.0 % [facility] Platelets (Bld) [#/Vol] 261 10*3/uL [facility] RBC (Bld) [#/Vol] 5.56 10*6/uL [facility] WBC (Bld) [#/Vol] 10.8 10*3/uL [facility] ECG 12-LEADon 11-22-2023 ECG 12-LEAD Ventricular Rate 83 Atrial Rate 83 P-R Interval 140 QRS Duration 74 Q-T Interval 358 QTC Calculation(Bazett) 420 P Colona 53 R Colona 51 T Colona 51 QRS Count 14 Q Onset 223 P Onset 153 P Offset 203 T Offset 402 QTC Fredericia 399 Diagnosis Normal sinus rhythm Normal ECG When compared with ECG of 23-JUL-2016 13:21, No significant change was found Confirmed by David Lopez ([id number]) on 11/29/2023 5:45:41 PM Normal [facility] Gamma glutamyl transferase [ Catalytic activity/Vol]on 11-22-2023 Interpretation and review of laboratory results Normal [facility] Gamma-Glutamyl Transferaseon 11-22-2023 Gamma glutamyl transferase [Catalytic activity/Vol] 62 U/L 5 - 64 U/L [facility] Glucose Test strip manual (B ld) [Mass/Vol]on 11-22-2023 Glucose [Mass/Vol] 258 mg/dL High 74 - 99 mg/dL [facility] Interpretation and review of laboratory results Abnormal [facility] HbA1c (Bld) [Mass fraction]o n 11-22-2023 Average glucose Estimated from glycated hemoglobin (Bld) [Mass/Vol] 232 mg/dL Not Established [facility] Interpretation and review of laboratory results Abnormal [facility] Diagnosis of Diabete s-Adults Non-Diabetic: < or = 5.6% Increased risk for developing diabetes: 5.7-6.4% Diagnostic of diabetes: > or = 6.5% Monitoring of Diabetes Age (y)....................... Therapeutic Goal (%) Adults: >18......................... <7.0 Pediatrics: 13-18...................<7.5 Pediatrics: 7-12....................<8.0 Pediatrics: 0-6..................... 7.5-8.5 [place] [employer]. Diabetes Care 33(S1), Jul 2009 [facility] Hemoglobin A1Con 11-22-2023 HbA1c (Bld) [Mass fraction] 9.7 % High see below [facility] Hepatic function 2000 panelo n 11-22-2023 Albumin BCP dye [Mass/Vol] 4.0 g/dL 3.4 - 5.0 g/dL [facility] ALP [Catalytic activity/Vol] 136 U/L High 33 - 120 U/L [facility] ALT With P-5'-P [Catalytic activity/Vol] 23 U/L 10 - 52 U/L [facility] Comment on above: Patients treated wit h Sulfasalazine may generate falsely decreased results for ALT. AST With P-5'-P [Catalytic activity/Vol] 20 U/L 9 - 39 U/L [facility] Bilirubin [Mass/Vol] 0.6 mg/dL 0.0 - 1.2 mg/dL [facility] Bilirubin.direct [Mass/Vol] 0.1 mg/dL 0.0 - 0.3 mg/dL [facility] Interpretation and review of laboratory results Abnormal [facility] Protein [Mass/Vol] 7.2 g/dL 6.4 - 8.2 g/dL [facility] IgE Qnon 11-22-2023 Interpretation and review of laboratory results Normal [facility] Immunoglobulin IgEon 024 IgE Qn 14 [IU]/L [facility] MRSA DNA CAROL+probe Ql (Nose) on 11-22-2023 Interpretation and review of laboratory results Abnormal [facility] MRSA DNA CAROL+probe Ql (Unsp spec) Detected Abnormal Not Detected [facility] This assay is an FDA-approved in vitro diagnostic nucleic acid amplification test for the detection of methicillin-resistant Staphylococcus aureus (MRSA) DNA directly from nasal swabs in patients at risk for nasal colonization. MRSA NxG is intended to aid in the prevention and control of MRSA infections in healthcare settings. This assay is NOT intended to diagnose, guide, or monitor treatment for MRSA infections, or provide results of susceptibility to methicillin. A negative result does not preclude MRSA nasal colonization. Test performance has not been evaluated in patients less than two years of age. [facility] Magnesiumon 11-22-2023 Magnesium [Mass/Vol] 1.86 mg/dL 1.60 - 2.40 mg/dL [facility] Magnesium [Mass/Vol]on 11-21 Interpretation and review of laboratory results Normal [facility] No Panel Informationon 11-21 Interpretation and review of laboratory results Abnormal [facility] PT and aPTT panel Coag (PPP) on 11-22-2023 aPTT Coag (PPP) [Time] 30 s [facility] INR Coag (PPP) [Relative time] 1.1 {INR} 0.9 - 1.1 [facility] Interpretation and review of laboratory results Normal [facility] PT Coag (PPP) [Time] 11.9 s [facility] The APTT is no longe r used for monitoring Unfractionated Heparin Therapy. For monitoring Heparin Therapy, use the Heparin Assay. [facility] Renal function 2000 panelon 11-22-2023 Albumin BCP dye [Mass/Vol] 4.0 g/dL 3.4 - 5.0 g/dL [facility] Anion gap [Moles/Vol] 11 mmol/L 10 - 20 mmol/L [facility] Calcium [Mass/Vol] 8.8 mg/dL 8.6 - 10.6 mg/dL [facility] Chloride [Moles/Vol] 101 mmol/L 98 - 107 mmol/L [facility] CO2 [Moles/Vol] 27 mmol/L 21 - 32 mmol/L [facility] Creatinine [Mass/Vol] 0.96 mg/dL 0.50 - 1.30 mg/dL [facility] eGFR - PINF [facility] Comment on above: Calculations of karine mated GFR are performed using the 2020 CKD-EPI Study Refit equation without the race variable for the IDMS-Traceable creatinine methods. https://jasn.asnjournals.org/content//ASN.0325146476 Glucose [Mass/Vol] 165 mg/dL High 74 - 99 mg/dL [facility] Interpretation and review of laboratory results Abnormal [facility] Phosphate [Mass/Vol] 3.0 mg/dL 2.5 - 4.9 mg/dL [facility] Comment on above: The performance lindsay acteristics of phosphorus testing in heparinized plasma have been validated by the individual laboratory site where testing is performed. Testing on heparinized plasma is not approved by the FDA; however, such approval is not necessary. Potassium [Moles/Vol] 4.4 mmol/L 3.5 - 5.3 mmol/L [facility] Sodium [Moles/Vol] 135 mmol/L Low 136 - 145 mmol/L [facility] Urea nitrogen [Mass/Vol] 11 mg/dL 6 - 23 mg/dL [facility] Urinalysis complete panel (U )on 11-22-2023 Appearance (U) Clear Clear [facility] Bilirubin (U) [Mass/Vol] Negative NEGATIVE [facility] Color (U) Colorless Abnormal Light-Yellow , Yellow, Dark-Yellow [facility] Glucose Auto test strip (U) [Mass/Vol] 500 (3+) Abnormal Normal mg/dL [facility] Ketones (U) [Mass/Vol] Negative NEGATIVE mg/dL [facility] Leukocyte esterase Auto test strip Ql (U) Negative NEGATIVE [facility] Nitrite Auto test strip Ql (U) Negative NEGATIVE [facility] pH (U) 6.0 [pH] 5.0, 5.5, 6.0, 6.5, 7.0, 7.5, 8.0 [facility] Protein (U) [Mass/Vol] Negative NEGATIVE, 10 (TRACE), 20 (TRACE) mg/dL [facility] RBC (U) [#/Vol] 0.06 (1+) Abnormal NEGATIVE [facility] Specific gravity (U) [Rel density] 1.008 1.005 - 1.035 [facility] Urobilinogen (U) [Mass/Vol] Normal Normal mg/dL [facility] Urinalysis microscopic panel Auto Ql (U)on 11-22-2023 Epithelial cells.squamous Auto (Urine sed) [#/Area] 1-9 (SPARSE) Reference range not established. /HPF [facility] RBC Auto (Urine sed) [#/Area] 6-10 Abnormal NONE, 1-2, 3-5 /HPF [facility] WBC Auto (Urine sed) [#/Area] 1-5 1-5, NONE /HPF [facility] Glucose Test strip manual (B ld) [Mass/Vol]on 10-01-2023 Glucose [Mass/Vol] 223 mg/dL High 74 - 99 mg/dL [facility] Interpretation and review of laboratory results Abnormal [facility] CT Chest WO contraston 09-18 1. Nonspecific [...] stated above. This study was interpreted at [place], [place]. Signed by: Melanie Mejía 09/19/2023 4:54 PM Dictation workstation: [id number] [facility] Interpreted By: Melanie Graves and Meyers Emily STUDY: CT CHEST WO IV CONTRAST; 09/18/2023 1:34 pm INDICATION: Signs/Symptoms:Pt grew [employer]. Per medical record: 38-year-old male with history of cystic fibrosis. Presenting with tachypnea leukocytosis, and scattered infiltrates on chest radiograph. Sputum cultures positive for acid-fast bacilli. COMPARISON: CT abdomen pelvis 08/31/2011 ACCESSION NUMBER(S): [id number] ORDERING CLINICIAN: CARMELITA WATERS TECHNIQUE: Helical data [...] no suspicious osseous lesions. [facility] Jordan Mejía MD - 09/19/2023 Interpreted By: Melanie Mejía and Meyers Emily STUDY: CT CHEST WO IV CONTRAST; 09/18/2023 1:34 pm INDICATION: Signs/Symptoms:Pt grew [employer]. Per medical record: 38-year-old male with history of cystic fibrosis. Presenting with tachypnea leukocytosis, and scattered infiltrates on chest radiograph. Sputum cultures positive for acid-fast bacilli. COMPARISON: CT abdomen pelvis 08/31/2011 ACCESSION NUMBER(S): [id number] ORDERING CLINICIAN: CARMELITA WATERS TECHNIQUE: Helical data [...] stated above. This study was interpreted at [place], [place]. Signed by: Melanie Mejía 09/19/2023 4:54 PM Dictation workstation: [id number] [facility] Work Phone: CT Chest WO contrastOrdered By: Jordan Mejía on 09-19-2023 [facility] Work Phone: CT Chest WO contraston 09-17 Radiology Study observation (narrative) [facility] Work Phone: Spirometryon 09-18-2023 FEF 25-75 2.79 L/s [facility] Work Phone: Comment on above: 66% FEV1 3.87 liters [facility] Work Phone: Comment on above: 88% FEV1/FVC 73 % [facility] Work Phone: FVC 5.27 liters [facility] Work Phone: Comment on above: 96% PEF 9.83 L/s [facility] Work Phone: [facility] Work Phone: Covid-19 PCR (CVDTB)on 02-06 SARS-CoV-2 (COVID-19) RNA CAROL+probe Ql (Unsp spec) Detected Critically abnormal NOT DETECTED [facility] Comment on above: Result Comment: This test is not yet approved or cleared by the [place] FDA. When there are no FDA-approved or cleared tests available, and other criteria are met, FDA can make tests available under an emergency access mechanism called an Emergency Use Authorization (EUA). The EUA for this test is supported by the [employer] of Health and Human Service's declaration that [...] used). Performed By: #### C VDTBH #### [facility] [address] [place] [address] Dr. Alisa Uribe ACETONE SERUMon 01-10-2022 ACETONE Negative Normal NEGATIVE [facility] Comment on above: Performed By: #### A CETON #### [facility] [address] [place] [address] Dr. Alisa Uribe CBC AUTO DIFFon 01-10-2022 BASO # 0.1 103/ul Normal 0.0-0.1 [facility] Comment on above: Performed By: #### C BC #### [facility] [address] [place] [address] Dr. Alisa Uribe Basophils/100 WBC (Bld) 0.5 % Normal 0.2-2.0 [facility] Comment on above: Performed By: #### C BC #### [facility] [address] [place] [address] Dr. Alisa Uribe EO # 0.3 103/ul Normal 0.0-0.7 [facility] Comment on above: Performed By: #### C BC #### [facility] [address] [place] [address] Dr. Alisa Uribe Eosinophils/100 WBC (Bld) 3.0 % Normal 0.9-7.0 [facility] Comment on above: Performed By: #### C BC #### [facility] [address] [address] [address] Alisa Uribe Erythrocyte distribution width (RBC) [Ratio] 12.7 % Normal 11.0-15.0 [facility] Comment on above: Performed By: #### C BC #### [facility] [address] [address] [address] Alisa Uribe Hematocrit (Bld) [Volume fraction] 40.9 % Critically low 42.0-54.0 [facility] Comment on above: Performed By: #### C BC #### [facility] [address] [place] [address] Dr. Alisa Uribe Hemoglobin (Bld) [Mass/Vol] 13.6 g/dL Critically low 14.0-18.0 [facility] Comment on above: Performed By: #### C BC #### [facility] [address] [address] [address] Alisa Uribe IG # 0.07 10e3/ul Critically high 0.00-0.03 [facility] Comment on above: Performed By: #### C BC #### [facility] [address] [place] [address] Dr. Alisa Uribe IG % 0.7 % Critically high 0.0-0.5 [facility] Comment on above: Performed By: #### C BC #### [facility] [address] [place] [address] Dr. Alisa Uribe LYMPH # 1.9 103/ul Normal 1.2-3.8 [facility] Comment on above: Performed By: #### C BC #### [facility] [address] [address] [address] Alisa Uribe Lymphocytes/100 WBC (Bld) 20.6 % Normal 20.5-60.0 [facility] Comment on above: Performed By: #### C BC #### [facility] [address] [place] [address] Dr. Alisa Uribe MANUAL DIFF REQ NO Normal [facility] Comment on above: Performed By: #### C BC #### [facility] [address] [place] [address] Dr. Alisa Uribe MCH (RBC) [Entitic mass] 29.2 pg Normal 25.9-34.0 [facility] Comment on above: Performed By: #### C BC #### [facility] [address] [place] [address] Dr. Alisa Uribe MCHC (RBC) [Mass/Vol] 33.3 g/dL Normal 29.9-35.2 [facility] Comment on above: Performed By: #### C BC #### [facility] [address] [place] [address] Dr. Alisa Uribe MCV (RBC) [Entitic vol] 87.8 fL Normal 80.0-94.0 [facility] Comment on above: Performed By: #### C BC #### [facility] [address] [place] [address] Dr. Alisa Uribe MONO # 0.6 103/ul Normal 0.3-0.8 [facility] Comment on above: Performed By: #### C BC #### [facility] [address] [place] [address] Dr. Alisa Uribe Monocytes/100 WBC (Bld) 6.1 % Normal 1.7-12.0 [facility] Comment on above: Performed By: #### C BC #### [facility] [address] [place] [address] Dr. Alisa Uribe NEUT # 6.5 103/ul Normal 1.4-6.5 [facility] Comment on above: Performed By: #### C BC #### [facility] [address] [place] [address] Dr. Alisa Uribe Neutrophils/100 WBC (Bld) 69.1 % Normal 43.0-75.0 [facility] Comment on above: Performed By: #### C BC #### [facility] [address] [place] [address] Dr. Alisa Uribe Platelet mean volume (Bld) [Entitic vol] 9.7 fL Normal 9.5-13.5 [facility] Comment on above: Performed By: #### C BC #### [facility] [address] [place] [address] Dr. Alisa Uribe PLT 270 103/ul Normal 150-450 [facility] Comment on above: Performed By: #### C BC #### [facility] [address] [place] [address] Dr. Alisa Uribe RBC 4.66 106/ul Critically low 4.70-6.10 [facility] Comment on above: Performed By: #### C BC #### [facility] [address] [place] [address] Dr. Alisa Uribe WBC 9.4 103/ul Normal 4.0-11.0 [facility] Comment on above: Performed By: #### C BC #### [facility] [address] [place] [address] Dr. Alisa Uribe Covid-19 PCR ([facility])on SARS-CoV-2 (COVID-19) RNA CAROL+probe Ql (Unsp spec) Not detected Normal NOT DETECTED [facility] Comment on above: Result Comment: When [...] for this test is supported by the [place] of Health and Human Service's declaration that [...] used). Performed By: #### C VDTBH #### [facility] [address] [address] [address] Alisa Uribe POINT OF CARE GLUCOSEon Glucose [Mass/Vol] 104 mg/dL Normal 74-106 [facility] Comment on above: Performed By: #### P OCGLUC #### [facility] [address] [address] [address] Alisa Uribe Glucose [Mass/Vol] 86 mg/dL Normal 74-106 [facility] Comment on above: Performed By: #### P OCGLUC #### [facility] [address] [address] [address] Alisa Uribe PROF 14(COMP METB)on 022 Albumin [Mass/Vol] 3.4 g/dL Normal 3.4-5.0 [facility] Comment on above: Performed By: #### C MP, HSTROPN #### [facility] [address] [place] [address] Dr. Alisa Uribe Albumin/Globulin [Mass ratio] 0.9 {ratio} Normal [facility] Comment on above: Performed By: #### C MP, HSTROPN #### [facility] [address] [address] [address] Alisa Uribe ALP [Catalytic activity/Vol] 360 U/L Critically high 46-116 [facility] Comment on above: Performed By: #### C MP, HSTROPN #### [facility] [address] [address] [address] Alisa Uribe ALT [Catalytic activity/Vol] 53 U/L Normal 16-63 [facility] Comment on above: Performed By: #### C MP, HSTROPN #### [facility] [address] [address] [address] Alisa Uribe Anion gap [Moles/Vol] 10.6 mmol/L Normal [facility] Comment on above: Performed By: #### C MP, HSTROPN #### [facility] [address] [address] [address] Alisa Uribe AST [Catalytic activity/Vol] 27 U/L Normal 15-37 [facility] Comment on above: Performed By: #### C MP, HSTROPN #### [facility] [address] [address] [address] Alisa Uribe Bilirubin [Mass/Vol] 0.4 mg/dL Normal 0.2-1.0 [facility] Comment on above: Performed By: #### C MP, HSTROPN #### [facility] [address] [place] [address] Dr. Alisa Uirbe Calcium [Mass/Vol] 8.9 mg/dL Normal 8.5-10.1 [facility] Comment on above: Performed By: #### C MP, HSTROPN #### [facility] [address] [place] [address] Dr. Alisa Uribe Chloride [Moles/Vol] 97 mmol/L Critically low 98-107 [facility] Comment on above: Performed By: #### C MP, HSTROPN #### [facility] [address] [place] [address] Dr. Alisa Uribe CO2 [Moles/Vol] 25.8 mmol/L Normal 21.0-32.0 [facility] Comment on above: Performed By: #### C MP, HSTROPN #### [facility] [address] [place] [address] Dr. Alisa Uribe Creatinine [Mass/Vol] 1.11 mg/dL Normal 0.70-1.30 [facility] Comment on above: Performed By: #### C MP, HSTROPN #### [facility] [address] [place] [address] Dr. Alisa Uribe EGFR-AF SURINAMESE >60 Normal >=60 [facility] Comment on above: Performed By: #### C MP, HSTROPN #### [facility] [address] [place] [address] Dr. Alisa Uribe EGFR-NON AF SURINAMESE >60 Normal >=60 [facility] Comment on above: Performed By: #### C MP, HSTROPN #### [facility] [address] [place] [address] Dr. Alisa Uribe Globulin (S) [Mass/Vol] 3.9 g/dL Normal [facility] Comment on above: Performed By: #### C MP, HSTROPN #### [facility] [address] [place] [address] Dr. Alisa Uribe Glucose [Mass/Vol] 650 mg/dL Critically high 74-106 [facility] Comment on above: Performed By: #### C MP, HSTROPN #### [facility] [address] [place] [address] Dr. Alisa Uribe Potassium [Moles/Vol] 4.4 mmol/L Normal 3.5-5.1 [facility] Comment on above: Performed By: #### C TIANA, HSTROPN #### [facility] [address] [place] [address] Dr. Alisa Uribe Protein [Mass/Vol] 7.3 g/dL Normal 6.4-8.2 [facility] Comment on above: Performed By: #### C TIANA, HSTROPN #### [facility] [address] [place] [address] Dr. Alisa Uribe Sodium [Moles/Vol] 129 mmol/L Critically low 136-145 [facility] Comment on above: Performed By: #### C MP, HSTROPN #### [facility] [address] [place] [address] Dr. Alisa Uribe Urea nitrogen [Mass/Vol] 9.0 mg/dL Normal 7.0-18.0 [facility] Comment on above: Performed By: #### C MP, HSTROPN #### [facility] [address] [place] [address] Dr. Alisa Uribe Urea nitrogen/Creatini ne [Mass ratio] 8.1 mg/mg Normal [facility] Comment on above: Performed By: #### C MP, HSTROPN #### [facility] [address] [place] [address] Dr. Alisa Uribe TROPONIN, HIGH SENSITIVITYon 01-10-2022 HSTROP 4.6 pg/mL Normal 4.0-76.1 [facility] Comment on above: Result Comment: CUT- OFF POINTS HAVE BEEN ESTABLISHED BASED ON THE FOURTH UNIVERSAL DEFINITIONS OF MYOCARDIAL INFARCTION. THE UPPER REFERENCE LIMIT (URL) OF TROPONIN, DEFINED THE 99TH PERCENTILE OF cTnI DISTRIBUTION IN A REFERENCE POPULATION, HAS BEEN CONFIRMED THE DECISION THRESHOLD FOR [place] DIAGNOSIS. Performed By: #### H STROPN #### [facility] [address] [place], [place] [address] Dr. Alisa Uribe HSTROP <4.0 Normal 4.0-76.1 [facility] Comment on above: Result Comment: CUT- OFF POINTS HAVE BEEN ESTABLISHED BASED ON THE FOURTH UNIVERSAL DEFINITIONS OF MYOCARDIAL INFARCTION. THE UPPER REFERENCE LIMIT (URL) OF TROPONIN, DEFINED THE 99TH PERCENTILE OF cTnI DISTRIBUTION IN A REFERENCE POPULATION, HAS BEEN CONFIRMED THE DECISION THRESHOLD FOR [place] DIAGNOSIS. Performed By: #### C MP, HSTROPN #### [facility] [address] [place], [place] [address] Dr. Alisa Uribe XR CHEST 1 Von [...] by: MELANIE MICHELLE Date: 2022-01-10 05:28 Normal [facility] Cult,Bloodon 11-01-2021 Cult,Blood Specimen Description .BLOOD Special Requests 10ML RAC Culture NO GROWTH 5 DAYS Report Status FINAL 11/01/2021 Normal [facility] Comment on above: Performed By: #### B C #### [facility] [address] [place] [address] Jaw Skinner: Michael Mcintosh MD Basic Metabolic Panelon 10-07 Anion gap [Moles/Vol] 11 mmol/L 9 - 17 mmol/L [facility] Calcium [Mass/Vol] 9.5 mg/dL 8.6 - 10.4 mg/dL [facility] Chloride [Moles/Vol] 96 mmol/L Low 98 - 107 mmol/L [facility] CO2 [Moles/Vol] 28 mmol/L 20 - 31 mmol/L [facility] Creatinine [Mass/Vol] 0.92 mg/dL 0.70 - 1.20 mg/dL [facility] GFR >60 >60 mL/min [facility] GFR Non- >60 >60 mL/min [facility] Glucose [Mass/Vol] 160 mg/dL High 70 - 99 mg/dL [facility] Interpretation and review of laboratory results Abnormal [facility] Potassium [Moles/Vol] 3.8 mmol/L 3.7 - 5.3 mmol/L [facility] Sodium [Moles/Vol] 135 mmol/L 135 - 144 mmol/L [facility] Urea nitrogen (BldV) [Mass/Vol] 13 mg/dL 6 - 20 mg/dL [facility] Urea nitrogen/Creatini ne (Bld) [Mass ratio] 14 [facility] Basic Metabolic Profon 10-27 (cont.) Normal [facility] Comment on above: Result Comment: Aver age GFR for 30-39 years old: 107 mL/min/1.73sq m Chronic Kidney Disease: <60 mL/min/1.73sq m Kidney failure: <15 mL/min/1.73sq m eGFR calculated using average adult body mass. Additional eGFR calculator available at: http://www.[employer]/multiple_crcl_2012.htm Performed By: #### C DP, BMP, TROPI #### [facility] [address] [place] [address] Jaw Skinner: Michael Mcintosh MD Anion gap [Moles/Vol] 11 mmol/L Normal - [facility] Comment on above: Performed By: #### C DP, BMP, TROPI #### [facility] [address] [place] [address] Jaw Skinner: Michael Mcintosh MD BUN/CRE Ratio 14 Normal 03-27 [facility] Comment on above: Performed By: #### C DP, BMP, TROPI #### [facility] [address] [place], [place] [id number] Jaw Skinner: Michael Mcintosh MD Calcium [Mass/Vol] 9.5 mg/dL Normal 8.6-10.4 [facility] Comment on above: Performed By: #### C DP, BMP, TROPI #### [facility] [address] [place], [place] [id number] Jaw Skinner: Michael Mcintosh MD Chloride [Moles/Vol] 96 mmol/L Low 98-107 [facility] Comment on above: Performed By: #### C DP, BMP, TROPI #### [facility] [address] [place], [place] [id number] Jaw Skinner: Michael Mcintosh MD CO2 [Moles/Vol] 28 mmol/L Normal 20-31 [facility] Comment on above: Performed By: #### C DP, BMP, TROPI #### [facility] [address] [place], [place] [id number] Jaw Skinner: Michael Mcintosh MD Creatinine [Mass/Vol] 0.92 mg/dL Normal 0.70-1.20 [facility] Comment on above: Performed By: #### C DP, BMP, TROPI #### [facility] [address] [place], [place] [id number] Jaw Skinner: Michael Mcintosh MD GFR, Amer >60 Normal >60 [facility] Comment on above: Performed By: #### C DP, BMP, TROPI #### [facility] [address] [place], [place] [id number] Jaw Skinner: Michael Mcintosh MD GFR,non Amer >60 Normal >60 [facility] Comment on above: Performed By: #### C DP, BMP, TROPI #### [facility] [address] [place], [place] [id number] Jaw Skinner: Michael Mcintosh MD Glucose [Mass/Vol] 160 mg/dL High 70-99 [facility] Comment on above: Performed By: #### C DP, BMP, TROPI #### [facility] [address] [place], [place] [id number] Jaw Skinner: Michael Mcintosh MD Potassium [Moles/Vol] 3.8 mmol/L Normal 3.7-5.3 [facility] Comment on above: Performed By: #### C DP, BMP, TROPI #### [facility] [address] [place], [place] [id number] Jaw Skinner: Michael Mcintosh MD Sodium [Moles/Vol] 135 mmol/L Normal 135-144 [facility] Comment on above: Performed By: #### C DP, BMP, TROPI #### [address] [place], [place] [id number] Jaw Skinner: Michael Mcintosh MD Staging: Normal [facility] Comment on above: Result Comment: Stag e 1: Some kidney damage normal GFR Stage 2: Mild kidney damage GFR 60-89 Stage 3: Moderate kidney damage GFR 30-59 Stage 4: Severe kidney damage GFR 15-29 Stage 5: Severe kidney damage GFR <15 ESRD - chronic treatment by dialysis or transplant Performed By: #### C DP, BMP, TROPI #### [address] [place], [place] [id number] Jaw Skinner: Michael Mcintosh MD Urea nitrogen [Mass/Vol] 13 mg/dL Normal 6-20 [facility] Comment on above: Performed By: #### C DP, BMP, TROPI #### [facility] [address] [place], [place] [id number] Jaw Skinner: Michael Mcintosh MD CBC with Auto Differentialon 10-27-2021 Absolute Eos # <0.03 [facility] th Absolute Immature Granulocyte 0.06 [facility] Absolute Lymph # 1.67 [facility] alth Absolute [place] # 1.14 [facility] lt Basophils (Bld) [#/Vol] 0.04 10*3/uL [facility] Basophils/100 WBC (Bld) 0 % 0 - 2 % [facility] Eosinophils/100 WBC (Bld) 0 % Low 1 - 4 % [facility] Hematocrit (Bld) [Volume fraction] 44.9 % 40.7 - 50.3 % [facility] Hemoglobin.gastro intestinal spec 1 Ql (Stl) 15.3 g/dL 13.0 - 17.0 g/dL [facility] Immature granulocytes/100 WBC (Bld) 1 % High 0 [facility] Interpretation and review of laboratory results Abnormal [facility] Lymphocytes/100 WBC (Bld) 16 % Low 24 - 43 % [facility] MCH (RBC) [Entitic mass] 30.2 pg 25.2 - 33.5 pg [facility] MCHC (RBC) [Mass/Vol] 34.1 g/dL 28.4 - 34.8 g/dL [facility] MCV (RBC) [Entitic vol] 88.6 fL 82.6 - 102.9 fL [facility] Monocytes/100 WBC (Bld) 11 % 3 - 12 % [facility] NRBC Automated 0.0 0.0 per 100 WBC [facility] Platelet distribution width (Bld) [Ratio] 12.3 % 11.8 - 14.4 % [facility] Platelet mean volume (Bld) [Entitic vol] 9.6 fL 8.1 - 13.5 fL [facility] Platelets (Bld) [#/Vol] 274 10*3/uL [facility] RBC (Bld) [#/Vol] 5.07 10*6/uL 4.21 - 5.7 7 m/uL [facility] Segmented neutrophils/100 WBC (Bld) 72 % High 36 - 65 % [facility] Segs Absolute [facility]ld[facility] [#/Vol] 10.4 10*3/uL [facility] CBC with Diffon 10-27-2021 Abs. Basophil 0.04 k/uL Normal 0.00-0.20 [facility] Comment on above: Performed By: #### C DP, BMP, TROPI #### [facility] [address] [place] [address] Jaw Skinner: Michael Mcintosh MD Abs. Eosinophil <0.03 Normal 0.00-0.44 [facility] Comment on above: Performed By: #### C DP, BMP, TROPI #### [facility] [address] [place] [address] Jaw Skinner: Michael Mcintosh MD Abs.Imm.Granulocy te 0.06 k/uL Normal 0.00-0.30 [facility] Comment on above: Performed By: #### C DP, BMP, TROPI #### [facility] [address] [place] [address] Jaw Skinner: Michael Mcintosh MD Abs.Neutrophil (Seg) 7.44 k/uL Normal 1.50-8.10 [facility] Comment on above: Performed By: #### C DP, BMP, TROPI #### [address] [place] [address] Jaw Skinner: Michael Mcintosh MD Basophils/100 WBC (Bld) 0 % Normal 0-2 [facility] Comment on above: Performed By: #### C DP, BMP, TROPI #### [address] [place] [address] Jaw Skinner: Michael Mcintosh MD Eosinophils/100 WBC (Bld) 0 % Low 1-4 [facility] Comment on above: Performed By: #### C DP, BMP, TROPI #### [address] [place], [facility] Jaw Skinner: Michael Mcintosh MD Erythrocyte distribution width (RBC) [Ratio] 12.3 % Normal 11.8-14.4 [facility] Comment on above: Performed By: #### C DP, BMP, TROPI #### [address] [place] [id number] Jaw Skinner: Michael Mcintosh MD Hematocrit (Bld) [Volume fraction] 44.9 % Normal 40.7-50.3 [facility] Comment on above: Performed By: #### C DP, BMP, TROPI #### [facility] [address] [place] [address] Dr. [place], [facility]83 Jaw Skinner: Michael Mcintosh MD Hemoglobin (Bld) [Mass/Vol] 15.3 g/dL Normal 13.0-17.0 [facility] Comment on above: Performed By: #### C DP, BMP, TROPI #### [address] [place], [place] [address] Jaw Skinner: Michael Mcintosh MD Immature granulocytes/100 WBC (Bld) 1 % High 0 [facility] Comment on above: Performed By: #### C DP, BMP, TROPI #### [address] [place] [address] Jaw Skinner: Michael Mcintosh MD Lymphocytes (Bld) [#/Vol] 1.67 10*3/uL Normal 1.10-3.70 [facility] Comment on above: Performed By: #### C DP, BMP, TROPI #### [address] [place], [place] [address] Jaw Skinner: Michael Mcintosh MD Lymphocytes/100 WBC (Bld) 16 % Low 24-43 [facility] Comment on above: Performed By: #### C DP, BMP, TROPI #### [address] [place], [place] [address] Jaw Skinner: Michael Mcintosh MD MCH (RBC) [Entitic mass] 30.2 pg Normal 25.2-33.5 [facility] Comment on above: Performed By: #### C DP, BMP, TROPI #### [address] [place], [facility]83 Jaw Skinner: Michael Mcintosh MD MCHC (RBC) [Mass/Vol] 34.1 g/dL Normal 28.4-34.8 [facility] Comment on above: Performed By: #### C DP, BMP, TROPI #### [facility] [address] [place], [place] [id number] Jaw Skinner: Michael Mcintosh MD MCV (RBC) [Entitic vol] 88.6 fL Normal 82.6-102.9 [facility] Comment on above: Performed By: #### C DP, BMP, TROPI #### [facility] [address] [place], [place] [id number] Jaw Skinner: Michael Mcintosh MD Monocytes (Bld) [#/Vol] 1.14 10*3/uL Normal 0.10-1.20 [facility] Comment on above: Performed By: #### C DP, BMP, TROPI #### [address] [place], [place] [id number] Jaw Skinner: Michael Mcintosh MD Monocytes/100 WBC (Bld) 11 % Normal 3-12 [facility] Comment on above: Performed By: #### C DP, BMP, TROPI #### [address] [place] [address] Jaw Skinner: Michael Mcintosh MD Neutrophil (Seg) 72 % High 36-65 [facility] Comment on above: Performed By: #### C DP, BMP, TROPI #### [address] [place], [place] [id number] Jaw Skinner: Michael Mcintosh MD NRBC Automated 0.0 per 100 WBC Normal 0.0 [facility] Comment on above: Performed By: #### C DP, BMP, TROPI #### [facility] [address] [place], [place] [id number] Jaw Skinner: Michael Mcintosh MD Platelet mean volume (Bld) [Entitic vol] 9.6 fL Normal 8.1-13.5 [facility] Comment on above: Performed By: #### C DP, BMP, TROPI #### [address] [place], [facility]83 Jaw Skinner: Michael Mcintosh MD Platelets (Bld) [#/Vol] 274 10*3/uL Normal 138-453 [facility] Comment on above: Performed By: #### C DP, BMP, TROPI #### [facility] [address] [place], [place] [id number] Jaw Skinner: Michael Mcintosh MD RBC (Bld) [#/Vol] 5.07 10*6/uL Normal 4.21-5.77 [facility] Comment on above: Performed By: #### C DP, BMP, TROPI #### [facility] [address] [place], [place] 2388983 Jaw Skinner: Michael Mcintosh MD WBC (Bld) [#/Vol] 10.4 10*3/uL Normal 3.5-11.3 [facility] Comment on above: Performed By: #### C DP, BMP, TROPI #### [facility] [address] [place] [address] Jaw Skinner: Michael Mcintosh MD COVID-19, Rapidon 10-27-2021 SARS-CoV-2 (COVID-19) RNA CAROL+probe Ql (Unsp spec) Not detected Not Detected [facility] Comment on above: Rapid NAAT: The specimen [...] management decisions. Fact sheet for Healthcare Providers: https://www.fda.gov/media/414201/download Fact sheet for Patients: https://www.fda.gov/media/047229/download Methodology: Isothermal Nucleic Acid Amplification Specimen Description .NASOPHARYNGEAL SWAB [facility] Flu A/B Ag Detectionon 10-27 Flu A Ag Detection Negative Normal NEG [facility] Comment on above: Result Comment: for Influenza A Antigen Performed By: #### F TARIK ####[facility] [place] [address] Lab Director: Michael Mcintosh MD Flu B Ag Detection Negative Normal NEG [facility] Comment on above: Result Comment: for Influenza B Antigen. Performed By: #### F TARIK ####[facility] [place] [address] lab Director: Michael Mcintosh MD Laboratory - Chemistry and C hemistry - challengeon 10-27-2021 GFR/1.73 sq M.predicted MDRD (S/P/Bld) [Vol rate/Area] [facility] Comment on above: Average GFR for 30-3 9 years old: 107 mL/min/1.73sq m Chronic Kidney Disease: <60 mL/min/1.73sq m Kidney failure: <15 mL/min/1.73sq m eGFR calculated using average adult body mass. Additional eGFR calculator available at: http://www.[employer]/multiple_crcl_2012.htm Stage 1: Some kidney damage normal GFR Stage 2: Mild kidney damage GFR 60-89 Stage 3: Moderate kidney damage GFR 30-59 Stage 4: Severe kidney damage GFR 15-29 Stage 5: Severe kidney damage GFR <15 ESRD - chronic treatment by dialysis or transplant Rapid influenza A/B antigens on 10-27-2021 Flu A Antigen Negative NEGATIVE [facility] Comment on above: for Influenza A Anti gen Flu B Antigen Negative NEGATIVE [facility] Comment on above: for Influenza B Anti gen. [facility] [id number] 10-27-2021 SARS-CoV-2 (COVID-19) RNA CAROL+probe Ql (Unsp spec) Not detected Normal NOTDET [facility] Comment on above: Result Comment: Rapid [...] management decisions. Fact sheet for Healthcare Providers: https://www.fda.gov/media/714828/download Fact sheet for Patients: https://www.fda.gov/media/383418/download Methodology: Isothermal Nucleic Acid Amplification Performed By: #### C OVRB ####[address] [place] [address] Lab Director: Michael Mcintosh MD Troponinon 10-27-2021 Troponin, High Sens 19 ng/L Normal 0-22 [facility] Comment on above: Result Comment: High Sensitivity Troponin values cannot be compared with other Troponin methodologies. Patients with high levels of Biotin oral intake (i.e >5mg/day) may have falsely decreased Troponin levels. Samples collected within 8 hours of biotin intake may require additional information for diagnosis. Performed By: #### C DP, BMP, TROPI #### [facility] [address] [place] [address] [place] [address] Jaw Skinner: Michael Mcintosh MD Troponin, High Sensitivity 19 ng/L 0 - 22 ng/L [facility] Comment on above: High Sensitivity Troponin values cannot be compared with other Troponin methodologies. Patients with high levels of Biotin oral intake (i.e >5mg/day) may have falsely decreased Troponin levels. Samples collected within 8 hours of biotin intake may require additional information for diagnosis. [facility] XR CHEST PORTABLEon 10-28-19 XR CHEST PORTABLE [...] Skip Coronel MD 10/27/21 Final result Normal [facility] No acute process. [facility] EXAMINATION: ONE XRAY VIEW OF THE CHEST 10/27/2021 5:48 pm COMPARISON: 07/17/2021 HISTORY: ORDERING SYSTEM PROVIDED HISTORY: cp TECHNOLOGIST PROVIDED HISTORY: cp FINDINGS: The lungs are without acute focal process. There is no effusion or pneumothorax. The cardiomediastinal silhouette is stable. The osseous structures are stable. [facility] Skip Coronel MD - 10/27/2021 EXAMINATION: ONE XRAY VIEW OF THE CHEST 10/27/2021 5:48 pm COMPARISON: 07/17/2021 HISTORY: ORDERING SYSTEM PROVIDED HISTORY: cp TECHNOLOGIST PROVIDED HISTORY: cp FINDINGS: The lungs are without acute focal process. There is no effusion or pneumothorax. The cardiomediastinal silhouette is stable. The osseous structures are stable. IMPRESSION: No acute process. [facility] Phone: Radiology Study observation (narrative) [facility] Phone: XR CHEST PORTABLEOrdered By: Skip Coronel on 10-27-2021 [facility] [employer] Phone: Cult, Respiratory CFon 10-10 Bacteria identified Cystic fibrosis respiratory culture Nom (Sput) Abnormal [email or web address] [address] [facility] Work Phone: Activated Partial Thrombopla stin Timeon 10-04-2021 aPTT Coag (PPP) [Time] 31 s 26 - 39 [email or web address] [address] [place] [employer] Work Phone: Comment on above: THE APTT IS NO LONGE R USED FOR MONITORING UNFRACTIONATED HEPARIN THERAPY. FOR MONITORING HEPARIN THERAPY, USE THE HEPARIN ASSAY. C Reactive Protein, Serumon 10-04-2021 CRP [Mass/Vol] 0.26 mg/dL [facility] [address] [facility] Work Phone: Comment on above: REF VALUE< 1.00 Complete Blood Count + Diffe gaby 10-04-2021 Basophils/100 WBC (Bld) 0.8 % 0.0 - 2.0 [facility] [address] [facility] Work Phone: Erythrocyte distribution width (RBC) [Ratio] 13.2 % See Below [facility] [address] [facility] Work Phone: Comment on above: Reference Range: 11. 5 - 14.5 Hematocrit (Bld) [Volume fraction] 42.4 % See Below [facility] [address] [facility] Work Phone: Comment on above: Reference Range: 41. 0 - 52.0 Hemoglobin (Bld) [Mass/Vol] 15.0 g/dL See Below [facility] [address] [facility] Work Phone: Comment on above: Reference Range: 13. 5 - 17.5 Lymphocytes/100 WBC (Bld) 25.0 % See Below [facility] [address] [facility] Work Phone: Comment on above: Reference Range: 13. 0 - 44.0 MCHC (RBC) [Mass/Vol] 35.4 g/dL See Below [facility] [address] [facility] Work Phone: Comment on above: Reference Range: 32. 0 - 36.0 MCV (RBC) [Entitic vol] 86 fL 80 - 100 [facility] [address] [facility] Work Phone: Monocytes/100 WBC (Bld) 6.7 % 2.0 - 10.0 [facility] [address] [facility] [facility] Work Phone: Neutrophils/100 WBC (Bld) 63.7 % See Below [facility] [address] [facility] Work Phone: Comment on above: Reference Range: 40. 0 - 80.0 Platelets (Bld) [#/Vol] 250 10*3/uL 150 - 450 [facility] [address] [facility] Work Phone: RBC (Bld) [#/Vol] 4.95 {x10E12/L} See Below [facility] [address] [facility] Work Phone: Comment on above: Reference Range: 4.5 0 - 5.90 WBC (Bld) [#/Vol] 9.2 10*3/uL 4.4 - 11.3 [facility] [address] [facility] Work Phone: Complete Blood Count + Differential 0.07 {x10E9/L} See Below [facility] [address] [facility] Work Phone: Comment on above: Reference Range: 0.0 0 - 0.10 Complete Blood Count + Differential 0.30 {x10E9/L} See Below [facility] [address] [facility] Work Phone: Comment on above: Reference Range: 0.0 0 - 0.70 Complete Blood Count + Differential 0.62 {x10E9/L} See Below [facility] [address] [facility] Work Phone: Comment on above: Reference Range: 0.1 0 - 1.00 Complete Blood Count + Differential 2.30 {x10E9/L} See Below [facility] [address] [facility] Work Phone: Comment on above: Reference Range: 1.2 0 - 4.80 Complete Blood Count + Differential 5.87 {x10E9/L} See Below [facility] [address] [facility] Work Phone: Comment on above: Reference Range: 1.2 0 - 7.70 Complete Blood Count + Differential 3.3 % 0.0 - 6.0 [facility] [address] [facility] Work Phone: Complete Blood Count + Differential 0.5 % 0.0 - 0.9 [facility] [address] [facility] Work Phone: Comment on above: Immature Granulocyte Count (IG) includes promyelocytes, myelocytes and metamyelocytes but does not include bands. Percent differential counts (%) should be interpreted in the context of the absolute cell counts (cells/L). Complete Blood Count + Differential 0.0 {/100_WBC} 0.0-0.[address] Work Phone: Cult, Fungus +smearon 2021 Fungus identified Cx Nom (Unsp spec) Abnormal [address] Work Phone: Ferritin, Serumon 10-04-2021 Ferritin [Mass/Vol] 275 ug/L 20 - 300 -[address] Work Phone: Gamma Glutamyl Transferase, Serumon 10-04-2021 Gamma glutamyl transferase [Catalytic activity/Vol] 228 U/L above high threshold 5 - [address] Work Phone: Hemoglobin A1Con 10-04-2021 Glucose [Mass/Vol] 249 mg/dL [address] Work Phone: HbA1c (Bld) [Mass fraction] 10.3 % Abnormal [address] Work Phone: Comment on above: Diagnosis of Diabete s-Adults Non-Diabetic: < or = 5.6% Increased risk for developing diabetes: 5.7-6.4% Diagnostic of diabetes: > or = 6.5%. Monitoring of Diabetes Age (y) Therapeutic Goal (%) Adults: >18 <7.0 Pediatrics: 13-18 <7.5 7-12 <8.0 0- 6 7.5-8.5 [place] [employer]. Diabetes Care 33(S1), Jul 2009. IO Spirometryon 10-04-2021 IO Spirometry 5.23 1 [facility] [facility] Work Phone: IO Spirometry 120 1 [facility] [facility] Work Phone: IO Spirometry 110 1 [facility] [address] [facility] Work Phone: IO Spirometry 6.07 1 [facility] [address] [facility] Work Phone: [phone] IO Spirometry 112 1 [facility] [address] [facility] Work Phone: IO Spirometry 4.98 1 [facility] [address] [facility] Work Phone: IO Spirometry 82 1 [facility] [address] [facility] Work Phone: [phone] Immunoglobulin E Level, Seru mon 10-04-2021 IgE Qn 12 {IU/mL} 0 - 214 [facility] [address] [facility] [facility] Work Phone: Laboratory - Chemistry and C hemistry - challengeon 10-04-2021 Albumin BCP dye [Mass/Vol] 4.5 g/dL 3.4 - 5.0 [facility] [address] [facility] [facility] Work Phone: Albumin Ql (U) 15.2 mg/L See Below [facility] [address] [address] [facility] Work Phone: [phone] Comment on above: Reference Range: Not Established Albumin/Creatinin e DL <= 20 mg/L (U) [Mass ratio] 29.8 {ug/mg_crt} 0.0 - 30.0 [facility] [address] [facility] [facility] Work Phone: ALP [Catalytic activity/Vol] 205 U/L above high threshold 33 - 120 [facility] [address] [facility] [facility] Work Phone: [phone] ALT With P-5'-P [Catalytic activity/Vol] 52 U/L 10 - 52 [facility] [address] [facility] [facility] Work Phone: [phone] Comment on above: Patients treated wit h Sulfasalazine may generate falsely decreased results for ALT. Anion gap [Moles/Vol] 17 mmol/L 10 - 20 [facility] [address] [address] [facility] Work Phone: AST With P-5'-P [Catalytic activity/Vol] 34 U/L 9 - 39 [facility] [address] [facility] [facility] Work Phone: Bilirubin [Mass/Vol] 0.7 mg/dL 0.0 - 1.2 [facility] [address] [facility] Work Phone: [phone] Calcium [Mass/Vol] 9.5 mg/dL 8.6 - 10.6 [facility] [address] [facility] Work Phone: [phone] Chloride [Moles/Vol] 100 mmol/L 98 - 107 [facility] [address] [facility] Work Phone: [phone] CO2 [Moles/Vol] 26 mmol/L 21 - 32 [facility] [address] [facility] Work Phone: [phone] Creatinine (U) [Mass/Vol] 51.0 mg/dL See Below [facility] [address] [facility] Work Phone: [phone] Comment on above: Reference Range: 20. 0 - 370.0 Creatinine [Mass/Vol] 0.95 mg/dL See Below [facility] [address] [facility] Work Phone: [phone] Comment on above: Reference Range: 0.5 0 - 1.30 Glucose [Mass/Vol] 341 mg/dL above high threshold 74 - 99 [facility] [address] [facility] Work Phone: [phone] Iron [Mass/Vol] 63 ug/dL 35 - 150 [facility] [address] [facility] Work Phone: [phone] Iron binding capacity [Mass/Vol] 313 ug/dL 240 - 445 [facility] [address] [facility] Work Phone: [phone] Potassium [Moles/Vol] 4.3 mmol/L 3.5 - 5.3 [facility] [address] [facility] Work Phone: [phone] Protein [Mass/Vol] 7.1 g/dL 6.4 - 8.2 [facility] [address] [facility] Work Phone: [phone] Sodium [Moles/Vol] 139 mmol/L 136 - 145 [facility] [address] [facility] Work Phone: [phone] Urea nitrogen [Mass/Vol] 13 mg/dL 6 - 23 [facility] [address] [facility] Work Phone: Laboratory - Coagulationon 0 10-04-2021 INR Coag (PPP) [Relative time] 1.0 {INR} 0.9 - 1.1 [facility] [address] [facility] Work Phone: PT Coag (PPP) [Time] 11.8 s 9.8 - 13.4 [facility] [address] [place] [address] [employer] Work Phone: Lipid Panelon 10-04-2021 Cholesterol [Mass/Vol] 134 mg/dL 0 - 199 [facility]-[address] [employer] Work Phone: Comment on above: . AGE [...] Cholesterol in HDL [Mass/Vol] 30.9 mg/dL Abnormal [facility] [address] [address] [employer] Work Phone: Comment on above: . AGE VERY LOW LOW N ORMAL HIGH 0-19 Y < 35 < 40 40-45 ---- 20- 24 Y ---- < 40 >45 ---- >24 Y ---- < 40 40-60 >60. Cholesterol in LDL [Mass/Vol] 25 mg/dL 0 - 99 [facility] [address] [employer] Work Phone: Comment on above: . NEAR BORD AGE ABIMAEL RABLE OPTIMAL HIGH HIGH VERY HIGH 0-19 Y 0 - 109 --- 110-129 >/= 130 ---- 20-24 Y 0 - 119 --- 120-159 >/= 160 ---- >24 Y 0 - 99 100-129 130-159 160-189 >/=190. Cholesterol non HDL [Mass/Vol] 103 mg/dL [email or web address] [address] Work Phone: Comment on above: AGE DESIRABLE BORDER LINE HIGH HIGH VERY HIGH 0-19 Y 0 - 119 120 - 144 >/= 145 >/= 160 20-24 Y 0 - 149 150 - 189 >/= 190 ---- >24 Y 30 MG/DL ABOVE LDL CHOLESTEROL GOAL. Cholesterol.total /Cholesterol in HDL [Mass ratio] 4.3 {ratio} [email or web address] [address] Work Phone: Comment on above: REF VALUESDESIRABLE < 3.4HIGH RISK > 5.0 Triglyceride [Mass/Vol] 389 mg/dL above high threshold 0 - 149 [email or web address] [address] [employer] Work Phone: Comment on above: . AGE [...] mg/dL above high threshold 0 - 40 [email or web address] [address] [facility] Work Phone: Magnesium, Serumon 2 Magnesium [Mass/Vol] 2.00 mg/dL See Below [facility] [address] [employer] Work Phone: Comment on above: Reference Range: 1.6 0 - 2.40 No Panel Informationon 10-04 20 % below low threshold 25 - 45 [facility] [address] [facility] Work Phone: >90 >90 [facility] [address] [place] [facility] Work Phone: Comment on above: CALCULATIONS OF KARINE MATED GFR ARE PERFORMED USING THE 2020 CKD-EPI STUDY REFIT EQUATION WITHOUT THE RACE VARIABLE FOR THE IDMS-TRACEABLE CREATININE METHODS.https://jasn.asnjournals.org/content//ASN.20 61764252 Office Visit (Peds Pulmonary Cystic Fibrosis)on 10-04-2021 [...] Serum; Status:In Progress - Specimen/Data Collected; Done: [id number] Thyroxine, Serum (T4); Status:In Progress - Specimen/Data Collected; Done: [id number] TSH - Thyroid Stimulating Hormone, Serum; Status:In Progress - Specimen/Data Collected; Done: [id number] Vitamin A, Serum; Status:In Progress - Specimen/Data Collected; Done: [id number] Vitamin D 25-Hydroxy; Status:In Progress - Specimen/Data Collected; Done: [id number] Vitamin E, Serum; Status:In Progress - Specimen/Data Collected; Done: [id number] Patient Discussion/Summary Thank you for working with us during this difficult time. Your care is very important to us! It was very nice to see you today. We can offer you in-person and virtual appointments with your cystic fibrosis provider - don't be afraid to ask!! If you need to cancel or schedule an appointment, please call the medical front desk specialist at the [facility] at between the hours of 8 [...] number, you will be connected to an transfer car operator with the [facility] answering service. You should tell the transfer car operator that you're an adult with cystic fibrosis who needs to speak to the cystic fibrosis doctor on-call. The transfer car operator will take your contact information. You should then expect a call back from the cystic fibrosis doctor on-call within a short period of time. Plan: 1. [facility] [place] [facility] [address] for meds 2. Start Remeron at 15 mg by mouth before bed 3. Resume Trikafta 4. Appt with Dr. Harris and Dr. Briceño next time we see [...] start remeron 7. SVT - saw a paper machine back [facility] - no more problems recently 8. insomnia - try remeron 9. Cirrhosis - follow up with Dr. Briceño Chief Complaint follow up visit for cystic fibrosis History of Present IllnessLast visit: 1. Refer to sleep specialist (either here or [facility]) 2. Encouraged follow up with me and with Dr. Ramirez within a few months 3. PHarmacist to [...] better with med 3. Moved back to [place] to care for his dad who has NHL - just completed chemo 4. working at at [employer] and 5. Have flu vaccine for this [...] need to ask Margaret Briceño Worked in [place] for [employer] Moved home to care fo isiahis Dad Lived in [facility] -40 miles to Apartment was $3600/month, gas $5.70 Wage was way better - $72 per hour Was like being here but had more wriggle room Is working back here. Has insurance through them Is able to go back to [place] if he wants Will be working at [employer] if he goes ack Came back in March, didn't call us until now Off all meds except for insulin Recently ran out Last dose of (more content not included)... Normal [facility] Office Visit ( erapy)on 10-04-2021 Follow-up visit Progress Note Respiratory Note: [...] 112% today! -Bravo recently moved back to [place]. He was living in [place]. -I discussed the option of a getting [...] very active while he was living in [place]. Also he used to work out while wearing his [employer] vest. Signatures Electronically signed by : Elo Mercedes, ; Oct 04 2021 7:49PM EST (Author) Normal [facility] Pharm D Noteon 10-04-2021 Pharm D Note Patient Discussion/S lisa GENERAL ASSESSMENT: -Bravo is re-establishing care with after moving back from [place] -Has not had Trikafta for 6 months [...] 10 mg BID. He moved back from [place] to care for his father who is [...] (R00.2) Paroxysmal SVT (supraventricular tachycardia) (427.0) (I47.1) home worker involved in patient's care Yeast infection of [...] chamber with mouthpiece. Okay to to substitute nettie vortex or opti chamberCystic fibrosis Oseltamivir Phosphate [...] of ColistinCystic fibrosis with pulmonary manifestations Zenpep [id number] UNIT Oral Capsule Delayed Release ParticlesTake 5-7 caps with meals and 3 caps with snacksCystic fibrosis, Exocrine pancreatic manifestation of cystic fibrosis Accu-Chek [employer] Lancet KITUSE DIRECTED.Diabetes (more content not included)... Normal [facility] 10-04-2021 XR Chest 2 Views Normal [facility] [address] [facility] [facility] Work Phone: Sedimentation Rate, Erythroc yteon 10-04-2021 ESR (Bld) [Velocity] 14 mm/h 0 - 15 [facility] [address] [facility] Work Phone: Social Work Assesmenton - 0-2021 Social Work Assesment Assessment Food Insecurity: 1. [...] Oct 17 2021 10:34AM EST (Author) Normal [facility] Social Work Assesment Encounter Visit Type: This is an annual visit for the patient. Social History Raised By: both biological parents. Additional Information: currently living with his father who has cancer and is his primary manager occupational. How Long? 2. Patient's current employment: Full-time . Employment History:. 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 Also works at a [employer] part time flexible clerk. Total Household Income: Total Household Income $60,000-$69,999. Housing: Patient does have adequate housing. Does Patient Feel Safe in Home? yes. Primary Insurance: Private believes he is over income for [facility], however will consider [place] if copays become too mcuh. Assessment ADLs: Fully Independent. Instrumental ADLs: Fully Independent. Level of Activity: Very Active. Knowledge of Health: Good. Overall Adherence: Poor. Adherence with Medications: poor. Understanding of Medication: good. Adherence with Appointments: fair. How does patient handle health problems? rBavo was living in [place] with no CF care for the past [...] father has cancer, and pt is primary manager occupational for him. Mental Health Meds: remeron Prescribed by: Specialist Dr. Allan Past Medications: Buspar. Counseling: discussed therapy as an intervention, patient declines at this time Impression Impression: Met Bravo for the first time in clinic as he was re-establishing care after bernard in [place] for two years. He moved back to [...] Plan Plan: Patient to consider applying for [facility] (may be over income). Patient to consider mental health counseling if anxiety persists. SW to continue to follow. Signatures Electronically signed by : TRAMAINE Guerrero; Oct 06 2021 9:05AM EST (Author) Normal [employer] TSH - Thyroid Stimulating Ho rmone, Serumon 10-04-2021 TSH Qn 3.47 m[IU]/L See Below [facility] [address] Work Phone: Comment on above: Reference Range: 0.4 4 - 3.98 TSH testing is performed using different testing methodology at [facility] than at other [facility]. Direct result comparisons should only be made within the same method. Thyroxine, Serum (T4)on 09-07 T4 [Mass/Vol] 6.8 ug/dL 4.5 - 11.1 [facility] [address] Work Phone: Urinalysison 10-04-2021 Color (U) YELLOW See Below [facility] [address] Work Phone: Comment on above: Reference Range: STR AW,YELLOW Glucose Ql (U) >=500 (3+) Abnormal NEGATIVE [facility] [address] Work Phone: Ketones Ql (U) Negative NEGATIVE [facility] [address] Work Phone: Leukocyte esterase Test strip Ql (U) Negative NEGATIVE [facility] [address] Work Phone: pH (U) 6.0 [pH] 5.0 - 8.0 [facility] [address] Work Phone: Protein (U) [Mass/Vol] Negative NEGATIVE [facility] [address] Work Phone: RBC (U) [#/Vol] Negative NEGATIVE [facility] [address] Work Phone: Specific gravity (U) [Rel density] 1.029 1 See Below [facility] [address] Work Phone: Comment on above: Reference Range: 1.0 05 - 1.035 Urinalysis Negative NEGATIVE [facility] [address] Work Phone: Urinalysis <2.0 0.0 - 1.9 [facility] [address] Work Phone: Urinalysis CLEAR CLEAR [facility] [address] Work Phone: Vitamin A, Serumon 2 Retinol [Mass/Vol] 30.7 ug/dL 18.9-57.3 [facility] [address] Work Phone: Comment on above: Reference intervals for vitamin A determined from [facility] internalstudies. Individuals with vitamin A less than 20 ug/dL are consideredvitamin A deficient and those with serum concentrations less than10 ug/dL are considered severely deficient.This test was developed and its performance characteristicsdetermined by [employer]. It has not been cleared or approvedby the Food and Drug Administration. Vitamin D 25-Hydroxyon 10-04 25-hydroxyvitamin D3 [Mass/Vol] 16 ng/mL Abnormal -[employer] [address] Work Phone: Comment on above: .DEFICIENCY: < 20 NG /MLINSUFFICIENCY: 20-29 NG/MLSUFFICIENCY: 30-100 NG/MLTHIS ASSAY ACCURATELY QUANTIFIES THE SUM OFVITAMIN D3, 25-HYDROXY AND VIT D2,25-HYDROXY. Vitamin E, Serumon Alpha tocopherol [Mass/Vol] 5.8 mg/L below low threshold 5.9-19.4 -[employer] [address] Work Phone: Gamma tocopherol [Mass/Vol] 0.9 mg/L 0.7-4.9 -[employer] [address] [employer] Work Phone: Comment on above: Reference intervals for alpha and gamma-tocopherol determined from[place] Health and Nutrition Examination Survey, 5350-6740.Individuals with alpha-tocopherol levels less than 5.0 mg/L areconsidered vitamin E deficient.Test(s) 398022-Uyrungk E(Alpha Tocopherol); 669056-Pjoriwv E(Gamma Tocopherol)was developed and its performance characteristics determinedby [employer]. It has not been cleared or approved by the Foodand Drug Administration. Xray Bone Density, Dexa 1 or More Siteson 10-04-2021 DXA Bone [Mass/Area] Bone density Normal -[employer] [address] Work Phone: CF S of C Ages 22+on 022 SARS-CoV-2 (COVID-19) RNA CAROL+probe Ql (Unsp spec) COVID Pfizer 10/19/20; -[employer] [address] Work Phone: XR Chest Views 09/2021 [facility] [address] Work Phone: CF S of C Ages 22+ Needs 22 [facility] [address] Work Phone: [phone] CF S of C Ages 22+ BMI >25 [facility] [address] Work Phone: [phone] CF S of C Ages 22+ HGS within 1 SD of average for age [facility] [address] Work Phone: [phone] CF S of C Ages 22+ Scandishake; Protein shakes [facility] [address] Work Phone: [phone] CF S of C Ages 22+ Low vegetable intake [facility] [address] Work Phone: [phone] CF S of C Ages 22+ Pt. hoping to gain muscle [facility] [address] Work Phone: [phone] CF S of C Ages 22+ Last seen 2019; F/U due [facility] [address] Work Phone: [phone] CF S of C Ages 22+ Repeat 24 [facility] [address] Work Phone: [phone] CF S of C Ages 22+ Repeat 23 [facility] [address] Work Phone: [phone] CF S of C Ages 22+ EN 3-22 [facility] [address] Work Phone: [phone] CF S of C Ages 22+ no [facility] [address] Work Phone: [phone] CF S of C Ages 22+ yes symbicort, albuterol inhaler [facility] [address] Work Phone: [phone] CF S of C Ages 22+ 3.25.22 [facility] [address] Work Phone: [phone] CF S of C Ages 22+ 95% September 2019 [facility] [address] Work Phone: CF S of C Ages 22+ Holt vest [facility] [address] Work Phone: CF S of C Ages 22+ Adequate [facility] [address] Work Phone: CF S of C Ages 22+ Roul5Gdwgsc [facility] [address] Work Phone: CF S of C Ages 22+ Zenpep [facility] [address] Work Phone: CF S of C Ages 22+ CFRD [facility] [address] Work Phone: CF S of C Ages 22+ N/A [facility] [address] Work Phone: CF S of C Ages 22+ 09/2021 [facility] [address] Work Phone: CF S of C Ages 22+ needs added to list [facility] [address] Work Phone: CF S of C Ages 22+ 04/2021 [facility] [address] Work Phone: CF S of C Ages 22+ No ototoxic medication [facility] [address] Work Phone: Microalb.,Random Uron 2021 Creatinine [Mass/Vol] 54.1 mg/dL Normal 39.0-259.0 [facility] Comment on above: Performed By: #### C DP, CPBILC ####[facility] [address] [place] [address] Lab Director: Michael Mcintosh MD#### CPURMA ####[address] [address] Lab Director: Tommy Hall MD Microalb/Creat Ratio 41 mcg/mg creat High <17 [facility] Comment on above: Performed By: #### C DP, CPBILC ####[address] [place] [address])[phone] Director: Michael Mcintosh MD#### CPURMA ####[place] [address] [place], [place] [address])[phone] Director: Tommy Hall MD Microalbumin conc. 22 mg/L High <21 [facility] Comment on above: Performed By: #### C DP, CPBILC ####[address] [place] [id number])[phone] Director: Michael Mcintosh MD#### CPURMA ####[address] [place], [place] [address])[phone] Director: Tommy Hall MD CBC with Diffon 08-08-2021 Abs. Basophil 0.05 k/uL Normal 0.00-0.20 [facility] Comment on above: Performed By: #### C DP, CPBILC ####[address] [place] [id number])[phone] Director: Michael Mcintosh MD#### CPURMA ####[place], [place] [phone] Director: Tommy Hall MD Abs.Imm.Granulocy te 0.08 k/uL Normal 0.00-0.30 [facility] Comment on above: Performed By: #### C DP, CPBILC ####[address] [place] [id number])[phone] Director: Michael Mcintosh MD#### CPURMA ####[address] [place], [place] [address])[phone] Director: Tommy Hall MD Abs.Neutrophil (Seg) 6.52 k/uL Normal 1.50-8.10 [facility] Comment on above: Performed By: #### C DP, CPBILC ####[address] [place] [address] Lab Director: Michael Mcintosh MD#### CPURMA ####[address] [address] Lab Director: Tommy Hall MD Basophils/100 WBC (Bld) 1 % Normal 0-2 [facility] Comment on above: Performed By: #### C DP, CPBILC ####[address] [place], [place] [address]83 Lab Director: Michael Mcintosh MD#### CPURMA ####[address] [address] Lab Director: Tommy Hall MD Eosinophils (Bld) [#/Vol] 0.12 10*3/uL Normal 0.00-0.44 [facility] Comment on above: Performed By: #### C DP, CPBILC ####[address] [place] [address] Lab Director: Michael Mcintosh MD#### CPURMA ####[address] [address] Lab Director: Tommy Hall MD Eosinophils/100 WBC (Bld) 1 % Normal 1-4 [facility] Comment on above: Performed By: #### C DP, CPBILC ####[address] [place] [address] Lab Director: Michael Mcintosh MD#### CPURMA ####[address] [place] [address] Lab Director: Tommy Hall MD Erythrocyte distribution width (RBC) [Ratio] 13.8 % Normal 11.8-14.4 [facility] Comment on above: Performed By: #### C DP, CPBILC ####[address] [place], [place] [address] Lab Director: Michael Mcintosh MD#### CPURMA ####[address] [place], [place] 7846[address] Lab Director: Tommy Hall MD Hematocrit (Bld) [Volume fraction] 44.9 % Normal 40.7-50.3 [facility] Comment on above: Performed By: #### C DP, CPBILC ####[address] [place] [phone] Lab Director: Michael Mcintosh MD#### CPURMA ####[address] [phone] Lab Director: Tommy Hall MD Hemoglobin (Bld) [Mass/Vol] 13.9 g/dL Normal 13.0-17.0 [facility] Comment on above: Performed By: #### C DP, CPBILC ####[address] [place] [phone] Lab Director: Michael Mcintosh MD#### CPURMA ####[address] [address] Lab Director: Tommy Hall MD Immature granulocytes/100 WBC (Bld) 1 % High 0 [facility] Comment on above: Performed By: #### C DP, CPBILC ####[address] [place] [phone] Lab Director: Michael Mcintosh MD#### CPURMA ####[address] [place] [address] Lab Director: Tommy Hall MD Lymphocytes (Bld) [#/Vol] 2.35 10*3/uL Normal 1.10-3.70 [facility] Comment on above: Performed By: #### C DP, CPBILC ####[address] [place], [place] [address]83 Lab Director: Michael Mcintosh MD#### CPURMA ####[address] [place], [place] 0033508 Lab Director: Tommy Hall MD Lymphocytes/100 WBC (Bld) 24 % Normal 24-43 [facility] Comment on above: Performed By: #### C DP, CPBILC ####[address] [place], [place] 82[address] Lab Director: Michael Mcintosh MD#### CPURMA ####[address] [place], [place] 4067408 Lab Director: Tommy Hall MD MCH (RBC) [Entitic mass] 30.5 pg Normal 25.2-33.5 [facility] Comment on above: Performed By: #### C DP, CPBILC ####[address] [place] [address] Lab Director: Michael Mcintosh MD#### CPURMA ####[address] [place], [place] 7845[address] Lab Director: Tommy Hall MD MCHC (RBC) [Mass/Vol] 31.0 g/dL Normal 28.4-34.8 [facility] Comment on above: Performed By: #### C DP, CPBILC ####[address] [place], [place] [address] Lab Director: Michael Mcintosh MD#### CPURMA ####[facility] [place], [place] 7166[address] Lab Director: Tommy Hall MD MCV (RBC) [Entitic vol] 98.7 fL Normal 82.6-102.9 [facility] Comment on above: Performed By: #### C DP, CPBILC ####[address] [place] [address] Lab Director: Michael Mcintosh MD#### CPURMA ####[address] [place] [address] Lab Director: Tommy Hall MD Monocytes (Bld) [#/Vol] 0.70 10*3/uL Normal 0.10-1.20 [facility] Comment on above: Performed By: #### C DP, CPBILC ####[address] [place] [phone] Lab Director: Michael Mcintosh MD#### CPURMA ####[address] [place] [address] Lab Director: Tommy Hall MD Monocytes/100 WBC (Bld) 7 % Normal 3-12 [facility] Comment on above: Performed By: #### C DP, CPBILC ####[address] [place] [address] Lab Director: Michael Mcintosh MD#### CPURMA ####[place] [address] Lab Director: Tommy Hall MD Neutrophil (Seg) 66 % High 36-65 [facility] Comment on above: Performed By: #### C DP, CPBILC ####[address] [place] [id number])[phone] Director: Michael Mcintosh MD#### CPURMA ####[address] [place], [place] [address])[phone] Director: Tommy Hall MD NRBC Automated 0.0 per 100 WBC Normal 0.0 [facility] Comment on above: Performed By: #### C DP, CPBILC ####[address] [place] [id number])[phone] Director: Michael Mcintosh MD#### CPURMA ####[address] [place], [place] 5145208 Lab Director: Tommy Hall MD Platelet mean volume (Bld) [Entitic vol] 9.1 fL Normal 8.1-13.5 [facility] Comment on above: Performed By: #### C DP, CPBILC ####[address] [place] [address] Lab Director: Michael Mcintosh MD#### CPURMA ####[address] [place], [place] 0253808 Lab Director: Tommy Hall MD Platelets (Bld) [#/Vol] 275 10*3/uL Normal 138-453 [facility] Comment on above: Performed By: #### C DP, CPBILC ####[address] [place] [address] Lab Director: Michael Mcintosh MD#### CPURMA ####[address] [place] [address] Lab Director: Tommy Hall MD RBC (Bld) [#/Vol] 4.55 10*6/uL Normal 4.21-5.77 [facility] Comment on above: Performed By: #### C DP, CPBILC ####[address] [place] [phone] Lab Director: Michael Mcintosh MD#### CPURMA ####[address] [place], [place] 8175808 Lab Director: Tommy Hall MD WBC (Bld) [#/Vol] 9.8 10*3/uL Normal 3.5-11.3 [facility] Comment on above: Performed By: #### C DP, CPBILC ####[address] [place] [address] Lab Director: Michael Mcintosh MD#### CPURMA ####[address] [place] [address] Lab Director: Tommy Hall MD Auto Diff Performed NOT REPORTED Normal [facility] Comment on above: Performed By: #### C DP, CPBILC ####[address] [place] [address] Lab Director: Michael Mcintosh MD#### CPURMA ####[address] [address] Lab Director: Tommy Hall MD Platelet Comment NOT REPORTED Normal [facility] Comment on above: Performed By: #### C DP, CPBILC ####[address] [place] [address] Lab Director: Michael Mcintosh MD#### CPURMA ####[address] [address] Lab Director: Tommy Hall MD RBC morphology finding Nom (Bld) NOT REPORTED Normal [facility] Comment on above: Performed By: #### C DP, CPBILC ####[address] [place] [address] Lab Director: Michael Mcintosh MD#### CPURMA ####[address] [address] Lab Director: Tommy Hall MD WBC Morphology NOT REPORTED Normal [facility] Comment on above: Performed By: #### C DP, CPBILC ####[address] [place] [address] Lab Director: Michael Mcintosh MD#### CPURMA ####[address] [place] [address] Lab Director: Tommy Hall MD Comp Metab w/Bili Pron 08-08 (cont.) Normal [facility] Comment on above: Result Comment: Aver age GFR for 30-39 years old: 107 mL/min/1.73sq m Chronic Kidney Disease: <60 mL/min/1.73sq m Kidney failure: <15 mL/min/1.73sq m eGFR calculated using average adult body mass. Additional eGFR calculator available at: http://www.[employer]/multiple_crcl_2012.htm Performed By: #### C DP, CPBILC ####[address] [place], [place] [address] Lab Director: Michael Mcintosh MD#### CPURMA ####[address] [place], [place] 8325508 Lab Director: Tommy Hall MD Albumin [Mass/Vol] 4.3 g/dL Normal 3.5-5.2 [facility] Comment on above: Performed By: #### C DP, CPBILC ####[address] [place], [place] 9479283 Lab Director: Michael Mcintosh MD#### CPURMA ####[address] [place], [place] 7849208 Lab Director: Tommy Hall MD Albumin/Glob Ratio 1.3 Normal 1.0-2.5 [facility] Comment on above: Performed By: #### C DP, CPBILC ####[address] [place], [place] [address] Lab Director: Michael Mcintosh MD#### CPURMA ####[facility] [address] [place] [address] Lab Director: Tommy Hall MD Alkaline Phos 401 U/L High 40-129 [facility] Comment on above: Performed By: #### C DP, CPBILC ####[address] , [place] 4045[address] Lab Director: Michael Mcintosh MD#### CPURMA ####[address] [place] [address] Lab Director: Tommy Hall MD ALT [Catalytic activity/Vol] 183 U/L High 5-41 [facility] Comment on above: Performed By: #### C DP, CPBILC ####[address] [place], [place] 6609283 Lab Director: Michael Mcintosh MD#### CPURMA ####[address] [place], [place] 6335408 Lab Director: Tommy Hall MD Anion gap [Moles/Vol] 10 mmol/L Normal 9-17 [facility] Comment on above: Performed By: #### C DP, CPBILC ####[address] [place], [place] 3849283 Lab Director: Michael Mcintosh MD#### CPURMA ####[address] [place] [address] Lab Director: Tommy Hall MD AST [Catalytic activity/Vol] 83 U/L High <40 [facility] Comment on above: Performed By: #### C DP, CPBILC ####[address] [place], [place] [phone] Director: Michael Mcintosh MD#### CPURMA ####[facility] [place] [address] Lab Director: Tommy Hall MD Bilirubin [Mass/Vol] 0.53 mg/dL Normal 0.3-1.2 [facility] Comment on above: Performed By: #### C DP, CPBILC ####[address] [place], [place] 47[address] Lab Director: Michael Mcintosh MD#### CPURMA ####[address] [place] [address] Lab Director: Tommy Hall MD Bilirubin, Indirect Can not be calculated Normal 0.00-1.00 [facility] Comment on above: Performed By: #### C DP, CPBILC ####[address] [place], [place] 32[address] Lab Director: Michael Mcintosh MD#### CPURMA ####[address] [place] [address] Lab Director: Tommy Hall MD Bilirubin.indirec t [Mass/Vol] mg/dL Normal <0.31 [facility] Comment on above: Performed By: #### C DP, CPBILC ####[address] [place] [address]([facility])[phone] Director: Michael Mcintosh MD#### CPURMA ####[address] [address] Lab Director: Tommy Hall MD Calcium [Mass/Vol] 10.3 mg/dL Normal 8.6-10.4 [facility] Comment on above: Performed By: #### C DP, CPBILC ####[address] [place] [address] Lab Director: Michael Mcintosh MD#### CPURMA ####[address] [address] Lab Director: Tommy Hall MD Chloride [Moles/Vol] 103 mmol/L Normal 98-107 [facility] Comment on above: Performed By: #### C DP, CPBILC ####[address] [place] [address] Lab Director: Michael Mcintosh MD#### CPURMA ####[address] [place] [address] Lab Director: Tommy Hall MD CO2 [Moles/Vol] 28 mmol/L Normal 20-31 [facility] Comment on above: Performed By: #### C DP, CPBILC ####[address] , [place] 0036[address] Lab Director: Michael Mcintsoh MD#### CPURMA ####[address] [address] Lab Director: Tommy Hall MD Creatinine [Mass/Vol] 0.78 mg/dL Normal 0.70-1.20 [facility] Comment on above: Performed By: #### C DP, CPBILC ####[address] [place], [place] 337[address]83 Lab Director: Michael Mcintosh MD#### CPURMA ####[address] [address] Lab Director: Tommy Hall MD GFR, Amer >60 Normal >60 [facility] Comment on above: Performed By: #### C DP, CPBILC ####[address] [place] [address] Lab Director: Michael Mcintosh MD#### CPURMA ####[facility] [address] [place], [place] [phone] Director: Tommy Hall MD GFR,non Amer >60 Normal >60 [facility] Comment on above: Performed By: #### C DP, CPBILC ####[address] [place] [address] Lab Director: Michael Mcintosh MD#### CPURMA ####[address] [address] Lab Director: Tommy Hall MD Glucose [Mass/Vol] 89 mg/dL Normal 70-99 [facility] Comment on above: Performed By: #### C DP, CPBILC ####[address] [place], [place] 2299[address] Lab Director: Michael Mcintosh MD#### CPURMA ####[address] [place] [address] Lab Director: Tommy Hall MD Potassium [Moles/Vol] 4.5 mmol/L Normal 3.7-5.3 [facility] Comment on above: Performed By: #### C DP, CPBILC ####[address] [place], [place] 2917483 Lab Director: Michael Mcintosh MD#### CPURMA ####[address] [address] Lab Director: Tommy Hall MD Protein [Mass/Vol] 7.5 g/dL Normal 6.4-8.3 [facility] Comment on above: Performed By: #### C DP, CPBILC ####[address] [place], [place] 0138483 Lab Director: Michael Mcintosh MD#### CPURMA ####[address] [address] Lab Director: Tommy Hall MD Sodium [Moles/Vol] 141 mmol/L Normal 135-144 [facility] Comment on above: Performed By: #### C DP, CPBILC ####[address] [place], [place] 1004383 Lab Director: Michael Mcintosh MD#### CPURMA ####[address] [place] [address] Lab Director: Tommy Hall MD Staging: Normal [facility] Comment on above: Result Comment: Stag e 1: Some kidney damage normal GFR Stage 2: Mild kidney damage GFR 60-89 Stage 3: Moderate kidney damage GFR 30-59 Stage 4: Severe kidney damage GFR 15-29 Stage 5: Severe kidney damage GFR <15 ESRD - chronic treatment by dialysis or transplant Performed By: #### C DP, CPBILC ####[address] [place] [address] Lab Director: Michael Mcintosh MD#### CPURMA ####[facility] [address] [place], [place] 1455208 Lab Director: Tommy Hall MD Urea nitrogen [Mass/Vol] 13 mg/dL Normal 12-25 [facility] Comment on above: Performed By: #### C DP, CPBILC ####[address] [place] [address] lab Director: Michael Mcintosh MD#### CPURMA ####[facility] [address] [place], [place] 4053108 Lab Director: Tommy Hall MD Cult,Respiratoryon 2 Cult,Respiratory Specimen Description .EXPECTORATED SPUTUM Special Requests NOT REPORTED Direct Exam CALLED TO FAX TO OFFICE DUE TO OFFICE BEING CLOSED ON 07/27/21 AT 1800.[facility] >10 Epithelial cells/LPF. Specimen is contaminated with oral mariza and is unacceptable for culture. Please submit another specimen. Culture NOT REPORTED Report Status FINAL 07/27/2021 Normal [facility] Comment on above: Performed By: #### R ESPC ####[address] [place] [address] lab Director: Michael Mcintosh MD Lipid Profileon 07-27-2021 Cholesterol [Mass/Vol] 120 mg/dL Normal <200 [facility] Comment on above: Result Comment: Cholesterol Guidelines: <200 Desirable 200-240 Borderline >240 Undesirable Performed By: #### L IPR ####[facility] [address] [place] [address] Lab Director: Tommy Hall MD Cholesterol in HDL [Mass/Vol] 33 mg/dL Low >40 [facility] Comment on above: Result Comment: HDL Guidelines: <40 Undesirable 40-59 Borderline >59 Desirable Performed By: #### L IPR ####[address] [place] [address] Lab Director: Tommy Hall MD Cholesterol in LDL [Mass/Vol] 60 mg/dL Normal 0-130 [facility] Comment on above: Result Comment: LDL Guidelines: <100 Desirable 100-129 Near to/above Desirable 130-159 Borderline >159 Undesirable Direct (measured) LDL and calculated LDL are not interchangeable tests. Performed By: #### L IPR ####[address] [phone] Director: Tommy Hall MD Cholesterol.total /Cholesterol in HDL [Mass ratio] 3.6 {ratio} Normal <5 [facility] Comment on above: Performed By: #### L IPR ####[address] [address] Lab Director: Tommy Hall MD Triglyceride [Mass/Vol] 135 mg/dL Normal <150 [facility] [facility] Comment on above: Result Comment: Triglyceride Guidelines: <150 Desirable 150-199 Borderline 200-499 High >499 Very high Based on AHA Guidelines for fasting triglyceride, April 2012. Performed By: #### L IPR ####[address] [phone] Director: Tommy Hall MD Specimen Rejectionon 022 Reason for rejection Unable to perform testing: Unsuitable sputum specimen. Normal [facility] Comment on above: Performed By: #### R EJEC ####[facility] [place] [address] Lab Director: Michael Mcintosh MD Source of sample SPUTUM Normal [facility] Comment on above: Performed By: #### R EJEC ####[address] [place] [address] [facility] Director: Michael Mcintosh MD Test ordered [id number] Normal [facility] Comment on above: Performed By: #### R EJEC ####[address] [place] [address] [facility] Director: Michael Mcintosh MD ----- NOT REPORTED Normal [facility] Comment on above: Performed By: #### R EJEC ####[facility] , [facility]83 [facility] Director: Michael Mcintosh MD CBC with Diffon 07-26-2021 Abs. Basophil 0.23 k/uL High 0.0-0.2 [facility] Comment on above: Performed By: #### C PBILC, CDP #### [address] [place], [place] [address] Jaw Skinner: Michael Mcintosh MD #### GLYHGB #### [address] [id number] Jaw Skinner: Tommy Hall MD Abs.Imm.Granulocy te 0.00 k/uL Normal 0.00-0.30 [facility] Comment on above: Performed By: #### C PBILC, CDP #### [address] [place], [place] [address] Jaw Skinner: Michael Mcintosh MD #### GLYHGB #### [place] [address] [place] [address] Jaw Skinner: Tommy Hall MD Abs.Neutrophil (Seg) 20.70 k/uL High 1.50-8.10 [facility] Comment on above: Performed By: #### C PBILC, CDP #### [address] [place] [id number] ( Jaw Skinner: Michael Mcintosh MD #### GLYHGB #### [address] [place] [address] Jaw Skinner: Tommy Hall MD Basophils/100 WBC (Bld) 1 % Normal 0-2 [facility] Comment on above: Performed By: #### C PBILC, CDP #### [facility] [address] [place], [place] 0239783 Jaw Skinner: Michael Mcintosh MD #### GLYHGB #### [address] [address] Jaw Skinner: Tommy Hall MD Eosinophils (Bld) [#/Vol] 0.00 10*3/uL Normal 0.00-0.44 [facility] Comment on above: Performed By: #### C PBILC, CDP #### [facility] [address] [place] [address] [address] [id number] Jaw Skinner: Michael Mcintosh MD #### GLYHGB #### [address] [address] Jaw Skinner: Tommy Hall MD Eosinophils/100 WBC (Bld) 0 % Low 1-4 [facility] Comment on above: Performed By: #### C PBILC, CDP #### [facility] [address] [place] [address] [address] [id number] Jaw Skinner: Michael Mcintosh MD #### GLYHGB #### [address] [address] Jaw Skinner: Tommy Hall MD Immature granulocytes/100 WBC (Bld) 0 % Normal 0 [facility] Comment on above: Performed By: #### C PBILC, CDP #### [facility] [address] [place] [address] [place] [place], [place] 2303083 Jaw Skinner: Michael Mcintosh MD #### GLYHGB #### [address] [place] [address] Jaw Skinner: Tommy Hall MD Lymphocytes (Bld) [#/Vol] 1.38 10*3/uL Normal 1.10-3.70 [facility] Comment on above: Performed By: #### C PBILC, CDP #### [facility] [address] [place], [place] [id number] Jaw Skinner: Michael Mcintosh MD #### GLYHGB #### [address] [address] Jaw Skinner: Tommy Hall MD Lymphocytes/100 WBC (Bld) 6 % Low 24-43 [facility] Comment on above: Performed By: #### C PBILC, CDP #### [facility] [address] [place], [place] 4209483 Jaw Skinner: Michael Mcintosh MD #### GLYHGB #### [address] [address] Jaw Skinner: Tommy Hall MD Monocytes (Bld) [#/Vol] 0.69 10*3/uL Normal 0.10-1.20 [facility] Comment on above: Performed By: #### C PBILC, CDP #### [facility] [address] [place], [place] [id number] Jaw Skinner: Michael Mcintosh MD #### GLYHGB #### [address] [phone] Jaw Skinner: Tommy Hall MD Monocytes/100 WBC (Bld) 3 % Normal 3-12 [facility] Comment on above: Performed By: #### C PBILC, CDP #### [facility] [address] [place], [place] 5983483 Jaw Skinner: Michael Mcintosh MD #### GLYHGB #### [address] [place] [address] Jaw Skinner: Tommy Hall MD Morphology Christian (Bld) [Interp] Normal Normal [facility] Comment on above: Performed By: #### C PBILC, CDP #### [facility] [address] [place], [place] [phone] Jaw Skinner: Michael Mcintosh MD #### GLYHGB #### [address] [address] Jaw Skinner: Tommy Hall MD Neutrophil (Seg) 90 % High 36-65 [facility] Comment on above: Performed By: #### C PBILC, CDP #### [facility] [address] [place] [address] Dr[address] [place], [place] 8463283 Jaw Skinner: Michael Mcintosh MD #### GLYHGB #### [address] [address] Jaw Skinner: Tommy Hall MD Erythrocyte distribution width (RBC) [Ratio] 11.9 % Normal 11.8-14.4 [facility] Comment on above: Performed By: #### C PBILC, CDP #### [address] [place], [place] 7557583 Jaw Skinner: Michael Mcintosh MD #### GLYHGB #### [address] [address] Jaw Skinner: Tommy Hall MD Hematocrit (Bld) [Volume fraction] 42.4 % Normal 40.7-50.3 [facility] Comment on above: Performed By: #### C PBILC, CDP #### [facility] [address] [place] [address] Dr[address] [place], [place] [id number] Jaw Skinner: Michael Mcintosh MD #### GLYHGB #### [address] [address] Jaw Skinner: Tommy Hall MD Hemoglobin (Bld) [Mass/Vol] 14.0 g/dL Normal 13.0-17.0 [facility] Comment on above: Performed By: #### C PBILC, CDP #### [address] [place] [address] Jaw Skinner: Michael Mcintosh MD #### GLYHGB #### [address] [id number] Jaw Skinner: Tommy Hall MD MCH (RBC) [Entitic mass] 29.9 pg Normal 25.2-33.5 [facility] Comment on above: Performed By: #### C PBILC, CDP #### [address] [place] [id number] Jaw Skinner: Michael Mcintosh MD #### GLYHGB #### [address] [id number] Jaw Skinner: Tommy Hall MD MCHC (RBC) [Mass/Vol] 33.0 g/dL Normal 28.4-34.8 [facility] Comment on above: Performed By: #### C PBILC, CDP #### [address] [place] [phone] Jaw Skinner: Michael Mcintosh MD #### GLYHGB #### [address] [phone] Jaw Skinner: Tommy Hall MD MCV (RBC) [Entitic vol] 90.4 fL Normal 82.6-102.9 [facility] Comment on above: Performed By: #### C PBILC, CDP #### [address] [place] [address] Jaw Skinner: Michael Mcintosh MD #### GLYHGB #### [address] [phone] Jaw Skinner: Tommy Hall MD NRBC Automated 0.0 per 100 WBC Normal 0.0 [facility] Comment on above: Performed By: #### C PBILC, CDP #### [facility] [address] [place] [address] [place] [phone] Jaw Skinner: Michael Mcintosh MD #### GLYHGB #### [address] [phone] Jaw Skinner: Tommy Hall MD Platelet mean volume (Bld) [Entitic vol] 9.7 fL Normal 8.1-13.5 [facility] Comment on above: Performed By: #### C PBILC, CDP #### [address] [place] [phone] Jaw Skinner: Michael Mcintosh MD #### GLYHGB #### [address] [id number] Jaw Skinner: Tommy Hall MD Platelets (Bld) [#/Vol] 397 10*3/uL Normal 138-453 [facility] Comment on above: Performed By: #### C PBILC, CDP #### [address] [place], [place] 2827283 Jaw Skinner: Michael Mcintosh MD #### GLYHGB #### [address] [phone] Jaw Skinner: Tommy Hall MD RBC (Bld) [#/Vol] 4.69 10*6/uL Normal 4.21-5.77 [facility] Comment on above: Performed By: #### C PBILC, CDP #### [address] [place], [place] 3842383 Jaw Skinner: Michael Mcintosh MD #### GLYHGB #### [address] [phone] Jaw Skinner: Tommy Hall MD WBC (Bld) [#/Vol] 23.0 10*3/uL High 3.5-11.3 [facility] Comment on above: Performed By: #### C PBILC, CDP #### [facility] [address] [place] [address] [place] [address] Jaw Skinner: Michael Mcintosh MD #### GLYHGB #### [address] [address] Jaw Skinner: Tommy Hall MD Auto Diff Performed NOT REPORTED Normal [facility] Comment on above: Performed By: #### C PBILC, CDP #### [address] [place] [address] Jaw Skinner: Michael Mcintosh MD #### GLYHGB #### [address] [address] Jaw Skinner: Tommy Hall MD Platelet Comment NOT REPORTED Normal [facility] Comment on above: Performed By: #### C PBILC, CDP #### [address] [place] [address] Jaw Skinner: Michael Mcintosh MD #### GLYHGB #### [address] [address] Jaw Skinner: Tommy Hall MD RBC morphology finding Nom (Bld) NOT REPORTED Normal [facility] Comment on above: Performed By: #### C PBILC, CDP #### [address] [place] [address] Jaw Skinner: Michael Mcintosh MD #### GLYHGB #### [address] [address] Jaw Skinner: Tommy Hall MD WBC Morphology NOT REPORTED Normal [facility] Comment on above: Performed By: #### C PBILC, CDP #### [facility] [address] [place], [place] [id number] Jaw Skinner: Michael Mcintosh MD #### GLYHGB #### [facility] [address] [place], [place] [phone] Jaw Skinner: Tommy Hall MD Comp Metab w/Bili Pron 07-26 Glucose [Mass/Vol] 785 mg/dL Critically high 70-99 [facility] Comment on above: Performed By: #### C PBILC, CDP #### [facility] [address] [place] [address] Jaw Skinner: Michael Mcintosh MD #### GLYHGB #### [facility] [address] [place], [place] [phone] Jaw Skinner: Tommy Hall MD (cont.) [facility] Comment on above: Result Comment: Aver age GFR for 30-39 years old: 107 mL/min/1.73sq m Chronic Kidney Disease: <60 mL/min/1.73sq m Kidney failure: <15 mL/min/1.73sq m eGFR calculated using average adult body mass. Additional eGFR calculator available at: http://www.[employer]/multiple_crcl_2012.htm Performed By: #### C PBHAILYC, CDP #### [facility] [address] [place] [address] [place] [address] Jaw Skinner: Michael Mcintosh MD #### GLYHGB #### [facility] [address] [place], [place] [phone] Jaw Skinner: Tommy Hall MD Albumin [Mass/Vol] 3.3 g/dL Low 3.5-5.2 [facility] Comment on above: Performed By: #### C PBILC, CDP #### [facility] [address] [place] [address] Jaw Skinner: Michael Mcintosh MD #### GLYHGB #### [facility] [address] [place] [address] Jaw Skinner: Tommy Hall MD Albumin/Glob Ratio 0.8 Low 1.0-2.5 [facility] Comment on above: Performed By: #### C PBILC, CDP #### [facility] [address] [place], [place] [id number] Jaw Skinner: Michael Mcintosh MD #### GLYHGB #### [address] [place] [address] Jaw Skinner: Tommy Hall MD Alkaline Phos 394 U/L High 40-129 [facility] Comment on above: Performed By: #### C PBILC, CDP #### [facility] [address] [place], [place] 8954483 Jaw Skinner: Michael Mcintosh MD #### GLYHGB #### [address] [address] Jaw Skinner: Tommy Hall MD ALT [Catalytic activity/Vol] 24 U/L Normal 5-41 [facility] Comment on above: Performed By: #### C PBILC, CDP #### [facility] [address] [place] [address] Jaw Skinner: Michael Mcintosh MD #### GLYHGB #### [facility] [address] [place] [address] Jaw Skinner: Tommy Hall MD Anion gap [Moles/Vol] 11 mmol/L Normal 9-17 [facility] Comment on above: Performed By: #### C PBILC, CDP #### [facility] [address] [place] [address] Jaw Skinner: Michael Mcintosh MD #### GLYHGB #### [address] [address] Jaw Skinner: Tommy Hall MD AST [Catalytic activity/Vol] 16 U/L Normal <40 [facility] Comment on above: Performed By: #### C PBILC, CDP #### [facility] [address] [place], [place] 8493083 Jaw Skinner: Michael Mcintosh MD #### GLYHGB #### [address] [address] Jaw Skinner: Tommy Hall MD Bilirubin [Mass/Vol] 0.46 mg/dL Normal 0.3-1.2 [facility] Comment on above: Performed By: #### C PBILC, CDP #### [address] [place], [place] 4860383 Jaw Skinner: Michael Mcintosh MD #### GLYHGB #### [address] [address] Jaw Skinner: Tommy Hall MD Bilirubin, Indirect Can not be calculated Normal 0.00-1.00 [facility] Comment on above: Performed By: #### C PBILC, CDP #### [address] [place], [place] 9089183 Jaw Skinner: Michael Mcintosh MD #### GLYHGB #### [address] [address] Jaw Skinner: Tommy Hall MD Bilirubin.indirec t [Mass/Vol] mg/dL Normal <0.31 [facility] Comment on above: Performed By: #### C PBILC, CDP #### [address] [place], [place] 2746983 Jaw Skinner: Michael Mcintosh MD #### GLYHGB #### [address] [address] Jaw Skinner: Tommy Hall MD Calcium [Mass/Vol] 9.4 mg/dL Normal 8.6-10.4 [facility] Comment on above: Performed By: #### C PBILC, CDP #### [facility] [address] [place], [place] 0164983 Jaw Skinner: Michael Mcintosh MD #### GLYHGB #### [address] [address] Jaw Skinner: Tommy Hall MD Chloride [Moles/Vol] 86 mmol/L Low 98-107 [facility] Comment on above: Performed By: #### C JEFFERY, CDP #### [facility] [address] [place] [address] [place] [place], [place] 4712283 Jaw Skinner: Michael Mcintosh MD #### GLYHGB #### [address] [address] Jaw Skinner: Tommy Hall MD CO2 [Moles/Vol] 27 mmol/L Normal 20-31 [facility] Comment on above: Performed By: #### C JEFFERY, CDP #### [facility] [address] [place] [address] [address] [place], [place] 1760583 Jaw Skinner: Michael Mcintosh MD #### GLYHGB #### [address] [address] Jaw Skinner: Tommy Hall MD Creatinine [Mass/Vol] 1.10 mg/dL Normal 0.70-1.20 [facility] Comment on above: Performed By: #### C JEFFERY, CDP #### [facility] [address] [place], [place] 4187983 Jaw Skinner: Michael Mcintosh MD #### GLYHGB #### [address] [address] Jaw Skinner: Tommy Hall MD GFR, Amer >60 Normal >60 [facility] Comment on above: Performed By: #### C PBILC, CDP #### [facility] [address] [place], [place] 5301883 Jaw Skinner: Michael Mcintosh MD #### GLYHGB #### [facility] [address] [place] [address] Jaw Skinner: Tommy Hall MD GFR,non Amer >60 Normal >60 [facility] Comment on above: Performed By: #### C PBILC, CDP #### [facility] [address] [place], [place] 7791583 Jaw Skinner: Michael Mcintosh MD #### GLYHGB #### [address] [address] Jaw Skinner: Tommy Hall MD Potassium [Moles/Vol] 5.4 mmol/L High 3.7-5.3 [facility] Comment on above: Performed By: #### C PBILC, CDP #### [facility] [address] [place], [place] 6985583 Jaw Skinner: Michael Mcintosh MD #### GLYHGB #### [address] [place] [address] Jaw Skinner: Tommy Hall MD Protein [Mass/Vol] 7.4 g/dL Normal 6.4-8.3 [facility] Comment on above: Performed By: #### C PBILC, CDP #### [facility] [address] [place], [place] 8976483 Jaw Skinner: Michael Mcintosh MD #### GLYHGB #### [address] [place] [address] Jaw Skinner: Tommy Hall MD Sodium [Moles/Vol] 124 mmol/L Low 135-144 [facility] Comment on above: Performed By: #### C PBILC, CDP #### [facility] [address] [place], [place] 3226883 Jaw Skinner: Michael Mcintosh MD #### GLYHGB #### [address] [place] [address] Jaw Skinner: Tommy Hall MD Staging: Normal [facility] Comment on above: Result Comment: Stag e 1: Some kidney damage normal GFR Stage 2: Mild kidney damage GFR 60-89 Stage 3: Moderate kidney damage GFR 30-59 Stage 4: Severe kidney damage GFR 15-29 Stage 5: Severe kidney damage GFR <15 ESRD - chronic treatment by dialysis or transplant Performed By: #### C JEFFERY CDP #### [facility] [address] [place] [address] [address] [place], [place] 5137283 Jaw Skinner: Michael Mcintosh MD #### GLYHGB #### [address] [address] Jaw Skinner: Tommy Hall MD Urea nitrogen [Mass/Vol] 23 mg/dL High 6-20 [facility] Comment on above: Performed By: #### C JEFFERY CDP #### [address] [place], [place] 4805183 Jaw Skinner: Michael Mcintosh MD #### GLYHGB #### [address] [address] Jaw Skinner: Tommy Hall MD Hemoglobin A1Con 07-26-2021 Glucose [Mass/Vol] 283 mg/dL Normal [facility] Comment on above: Result Comment: The ADA and AACC recommend providing the estimated average glucose result to permit better patient understanding of their HBA1c result. Performed By: #### C JEFFERY, CDP #### [facility] [address] [place], [place] 8078883 Jaw Skinner: Michael Mcintosh MD #### GLYHGB #### [address] [phone] Jaw Skinner: Tommy Hall MD HbA1c (Bld) [Mass fraction] 11.5 % High 4.0-6.0 [facility] Comment on above: Performed By: #### C PBILC, CDP #### [facility] [address] [place], [place] 3628483 Jaw Skinner: Michael Mcintosh MD #### GLYHGB #### [facility] [address] [place] [address] Jaw Skinner: Tommy Hall MD Lipid Profileon 07-26-2021 Cholesterol,VLDL NOT REPORTED Normal 08-06 [facility] Comment on above: Performed By: #### L IPR ####[facility] [place] [address] Lab Director: Tommy Hall MD COVID-19, Rapidon 07-17-2021 SARS-CoV-2 (COVID-19) RNA CAROL+probe Ql (Unsp spec) Not detected Not Detected [facility] Comment on above: Rapid NAAT: The specimen [...] management decisions. Fact sheet for Healthcare Providers: https://www.fda.gov/media/510255/download Fact sheet for Patients: https://www.fda.gov/media/505347/download Methodology: Isothermal Nucleic Acid Amplification Specimen Description .NASOPHARYNGEAL SWAB [facility] [id number] 07-17-2021 SARS-CoV-2 (COVID-19) RNA CAROL+probe Ql (Unsp spec) Not detected Normal NOTDET [facility] Comment on above: Result Comment: Rapid [...] management decisions. Fact sheet for Healthcare Providers: https://www.fda.gov/media/385867/download Fact sheet for Patients: https://www.fda.gov/media/298680/download Methodology: Isothermal Nucleic Acid Amplification Performed By: #### C OVRB #### [facility] [address] [place] [address] Jaw Skinner: Michael Mcintosh MD XR CHEST 1 VIEWon [...] Skip Coronel MD 07/17/21 Final result Normal [facility] No acute process. RUST RIS CONSOLIDATED EXAMINATION: ONE XRAY VIEW OF THE CHEST 07/17/2021 4:39 pm COMPARISON: 06/25/2021 HISTORY: ORDERING SYSTEM PROVIDED HISTORY: cough TECHNOLOGIST PROVIDED HISTORY: cough FINDINGS: The lungs are without acute focal process. There is no effusion or pneumothorax. The cardiomediastinal silhouette is without acute process. The osseous structures are without acute process. RUST RIS Skip Smith MD - 07/17/2021 EXAMINATION: ONE XRAY VIEW OF THE CHEST 07/17/2021 4:39 pm COMPARISON: 06/25/2021 HISTORY: ORDERING SYSTEM PROVIDED HISTORY: cough TECHNOLOGIST PROVIDED HISTORY: cough FINDINGS: The lungs are without acute focal process. There is no effusion or pneumothorax. The cardiomediastinal silhouette is without acute process. The osseous structures are without acute process. IMPRESSION: No acute process. [employer] Work Phone: Radiology Study observation (narrative) [employer] Phone: XR CHEST 1 VIEWOrdered By: Grace Coronel on 07-17-2021 [employer] Phone: COVID-19, Rapidon 06-26-2021 SARS-CoV-2 (COVID-19) RNA CAROL+probe Ql (Unsp spec) Not detected Not Detected [employer] Comment on above: Rapid NAAT: The specimen [...] management decisions. Fact sheet for Healthcare Providers: https://www.fda.gov/media/045036/download Fact sheet for Patients: https://www.fda.gov/media/801692/download Methodology: Isothermal Nucleic Acid Amplification Specimen Description .[facility]AL [facility]AB [facility] AUTOFACT Rapid influenza A/B antigens on 06-26-2021 Direct Exam NEGATIVE for Influen za A + B antigens. PCR testing to confirm this result is available upon request. Specimen will be saved in the laboratory for 7 days. Please call [phone] if PCR testing is indicated. [employer] Special Requests NOT REPORTED [facility] [employer] Specimen Description .NASOPHARYNGEAL SWAB [facility] Giovanna poon [facility] XR CHEST PORTABLEon 06-26-20 XR CHEST PORTABLE EXAMINATION: ONE XRAY VIEW [...] Daryn Pichardo MD 06/25/21 Final result Normal [facility] XR CHEST PORTABLEon 06-25-20 No acute [...] is present. IMPRESSION: No acute cardiopulmonary process [employer] Work Phone: Radiology Study observation (narrative) [employer] Phone: XR CHEST PORTABLEOrdered By: Daryn Pichardo on 06-25-2021 [employer] Phone: Office Visit ([facility])on 05-15-2021 Follow-up visit Progress Note [facility] is [...] 2020. To schedule an appointment, please call [phone]. Please feel free to contact me with any questions or concerns. Sincerely, Ella Prasad SOA ENGINEER, RPFT Update: [facility] moved to [place] 12/2020 Signatures Electronically signed by : Ella [...] 13-18 <7.5 7-12 <8.0 0- 6 7.5-8.5 [employer] [employer]. Diabetes Care 33(S1), Jul 2009. [...] Phone: Testosterone [Mass/Vol] 800 ng/dL 250-1100 [facility] [facility] Work Phone: Comment on above: For additional infor santiago, please refer tohttp://education.WorkWith.me/faq/TotalTestosteroneLCMSMSF [email or web address](This link is being provided for informational/educational purposes only.) This test was developed and its analytical performancecharacteristics have been determined by [address] [place], [place]. It hasnot been cleared or approved by the U.S. Food and DrugAdministration. This assay has been validated pursuantto the CLIA regulations and is used for clinicalpurposes. Testosterone Free [Mass/Vol] 312.0 pg/mL above high threshold 35.0-155.0 [facility] [address] [facility] Work Phone: Comment on above: This test was develo ped and its analytical performancecharacteristics have been determined by [address] [place], [place]. It hasnot been cleared or approved by the U.S. Food and DrugAdministration. This assay has been validated pursuantto the CLIA regulations and is used for clinicalpurposes. 10 % below low threshold 25 - 45 [facility] [address] Work Phone: >60 >60 [facility] [address] Work Phone: Comment on above: CALCULATIONS OF KARINE MATED GFR ARE PERFORMED USING THE MDRD STUDY EQUATION FOR THE IDMS-TRACEABLE CREATININE METHODS. CLIN CHEM 2007;53:766-72 Sedimentation Rate, Erythroc yteon 03-09-2020 ESR (Bld) [Velocity] 72 mm/h above high threshold 0 - 15 [facility] Work Phone: TSH - Thyroid Stimulating Ho rmone, Serumon 03-09-2020 TSH Qn 2.29 {mIU/L} See Below [facility] Work Phone: Comment on above: Reference Range: 0.4 4 - 3.98 TSH testing is performed using different testing methodology at [facility] than at other [facility]. Direct result comparisons should only be made [...] Test strip Ql (U) Negative NEGATIVE [facility] Work Phone: pH (U) 6.0 [pH] [...] 0 Retinol [Mass/Vol] 29.7 ug/dL 18.9-57.3 [facility] [address] Work Phone: Comment on above: Reference intervals for vitamin A determined from [employer] internalstudies. Individuals with vitamin A less than 20 ug/dL are consideredvitamin A deficient and those with serum concentrations less than10 ug/dL are considered severely deficient.This test was developed and its performance characteristicsdetermined by [employer]. It has not been cleared or approvedby the Food and Drug Administration.Test(s) 772455-Yuwgfnb E(Alpha Tocopherol); 434687-Ibiubhi E(Gamma Tocopherol)was developed and its performance characteristics determinedby [employer]. It has not been cleared or approved by the Foodand Drug Administration. Vitamin D 25-Hydroxyon 03-09 Calcidiol [Mass/Vol] 18 ng/mL Abnormal [facility] [address] Work Phone: Comment on above: .DEFICIENCY: < 20 NG /MLINSUFFICIENCY: 20-29 NG/MLSUFFICIENCY: 30-100 NG/MLTHIS ASSAY ACCURATELY QUANTIFIES THE SUM OFVITAMIN D3, 25-HYDROXY AND VIT D2,25-HYDROXY.{ Vitamin E, Serumon 0 Alpha tocopherol [Mass/Vol] 4.2 mg/L below low threshold 5.9-19.4 [facility] [facility] Work Phone: Gamma tocopherol [Mass/Vol] 0.9 mg/L 0.7-4.9 [facility] [facility] Work Phone: Comment on above: Reference intervals for alpha and gamma-tocopherol determined from[place] [facility] Nutrition Examination Survey, 5183-2651.Individuals with alpha-tocopherol levels less than 5.0 mg/L areconsidered vitamin E deficient.Test(s) 513113-Ddrhdhz E(Alpha Tocopherol); 011513-Ujwjwpv E(Gamma Tocopherol)was developed and its performance characteristics determinedby [employer]. It has not been cleared or approved by the Foodand Drug Administration. Coronavirus 2019 RNA by PCR, Symptomaticon 02-24-2020 Coronavirus 2019 RNA by PCR, Symptomatic NOT DETECTED See Below -Pediatrics -[place] [facility] Work Phone: Comment on above: SOURCE: Nasal, [...] make patient management decisions.Fact sheet for providers: https://www.fda.gov/media/707574/downloadFact sheet for patients: https://www.fda.gov/media/958566/downloadThis test has received FDA Emergency Use Authorization (EUA) and has been verified by [facility] ([facility]). This test is only authorized for the duration of time that circumstances exist to justify the authorization of the emergency use of in vitro diagnostic tests for the detection of SARS-CoV-2 virus and/or diagnosis of COVID-19 infection under section 564(b)(1) of the Act, 21 U.S.C. 360bbb-3(b)(1), unless the authorization is terminated or revoked sooner. [facility] is certified under CLIA-88 as qualified to perform high complexity testing. Testing is performed in the [facility] laboratories located at [address] [place] [address]. 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 AFB CULTURE/SM, MISC PRELIM 09/21/19 09:28 CULTURE IN PROGRESS AND WILL BE EXAMINED WEEKLY. A RESULT WILL BE ISSUED EITHER WHEN POSITIVE OR AFTER 8 WEEKS INCUBATION. 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 MEDIA 4+ GROWTH ON SOLID MEDIA Abnormal [facility] [address] Work Phone: Comment on above: CALLED GEORGINA CARSON , 09/11/2019 15:03 Cult, Respiratory CFon 09-08 Bacteria identified Cystic fibrosis respiratory culture Nom (Sput) PATIENT: BRAVO HULL LOCATION: [id number] BILL#: [id number] : 83 AGE: SEX: M ORDERED BY: [...] DEPENDENT NS=NONSUSCEPTIBLEX=REPORTED IN ERROR Abnormal [facility] [address] [facility] Work Phone: IO Spirometryon 09-09-2019 IO Spirometry 75 [facility] -[address] Work Phone: IO Spirometry 4.28 [facility] [address] Work Phone: IO Spirometry 95 [facility] -[address] Work Phone: IO Spirometry 5.70 [facility] [address] [place] [address] Ctr Work Phone: IO Spirometry 102 [facility] [address] [place] [address] Ctr Work Phone: IO Spirometry 74 [facility] [address] [place] [address] Ctr Work Phone: IO Spirometry 3.21 [facility] [address] Work Phone: Vital Signs Date Time Vital Sign Value Performing Clinician Facility 11-29-2023 08:37-0400 Diastolic blood pressure 77 mm[Hg] Madeleine Small MD Work Phone: [facility] 11-29-2023 08:37-0400 Heart rate 97 /min Madeleine Small MD Work Phone: [facility] 11-29-2023 08:37-0400 Respiratory rate 17 /min Madeleine Small MD Work Phone: [facility] 11-29-2023 08:37-0400 SaO2% (BldA) [Mass fraction] 99 % Madeleine Small MD Work Phone: [facility] 11-29-2023 08:37-0400 Systolic blood pressure 124 mm[Hg] Madeleine Small MD Work Phone: [facility] 11-26-2023 19:57-0400 Body temperature 98.6 [degF] Madeleine Small MD Work Phone: [facility] 11-26-2023 13:00-0400 Body mass index (BMI) [Ratio] 22.81 kg/m2 Madeleine Small MD Work Phone: [facility] 11-26-2023 13:00-0400 Body weight 76.3 kg Madeleine Small MD Work Phone: [facility] 11-22-2023 16:48-0400 Body height 182.9 cm Madeleine Small MD Work Phone: [facility] 10-01-2023 15:12-0400 Diastolic blood pressure 70 mm[Hg] Daya Deleon MD Work Phone: [facility] 10-01-2023 15:12-0400 Heart rate 99 /min Daya Deleon MD Work Phone: [facility] 10-01-2023 15:12-0400 Respiratory rate 16 /min Daya Deleon MD Work Phone: [facility] 10-01-2023 15:12-0400 SaO2% (BldA) [Mass fraction] 95 % Daya Deleon MD Work Phone: [facility] 10-01-2023 15:12-0400 Systolic blood pressure 111 mm[Hg] Daya Deleon MD Work Phone: [facility] 10-01-2023 14:15-0400 Body temperature 97.3 [degF] Daya Deleon MD Work Phone: [facility] 10-01-2023 13:01-0400 Body height 180.3 cm Daya Deleon MD Work Phone: [facility] 10-01-2023 13:01-0400 Body mass index (BMI) [Ratio] 22.59 kg/m2 Daya Deleon MD Work Phone: [facility] 10-01-2023 13:01-0400 Body weight 73.48 kg Daya Deleon MD Work Phone: [facility] 10-27-2021 22:59-0400 Diastolic blood pressure 60 mm[Hg] Homer Sewell [facility] 10-27-2021 22:59-0400 Heart rate 91 /min Homerfredi Sewell [facility] 10-27-2021 22:59-0400 Respiratory rate 28 /min Homerfredi Sewell [facility] 10-27-2021 22:59-0400 SaO2% (BldA) [Mass fraction] 94 % Homer Sewell [facility] 10-27-2021 22:59-0400 Systolic blood pressure 118 mm[Hg] Homerfredi Sewell [facility] 10-27-2021 21:29-0400 Body temperature 99.9 [degF] Homerfredi Sewell [facility] 10-04-2021 09:42-0400 Body height 181.9 cm Jaleesa Allan PhD Work Phone: [facility] Fatou Gonzalez Work Phone: 10-04-2021 09:42-0400 Body mass index (BMI) [Ratio] 25.98 kg/m2 Jaleesa Allan PhD Work Phone: NT-Qovttlvqfp-Opszz ow [address] Work Phone: 10-04-2021 09:42-0400 Body surface area Derived from formula 2.07 m2 Jaleesa Allan PhD Work Phone: RK-Wxbxjocceq-Ajjlg ow [address] Work Phone: 10-04-2021 09:42-0400 Body temperature 98.3 [degF] Jaleesa Allan PhD Work Phone: EG-Gzhpybrbyn-Jnoyx ow [address] Work Phone: 10-04-2021 09:42-0400 Body weight 85.95 kg Jaleesa Allan PhD Work Phone: HJ-Awcoogqxxu-Xssgm ow [address] Work Phone: 10-04-2021 09:42-0400 Diastolic blood pressure 88 mm[Hg] Jaleesa Allan PhD Work Phone: BS-Kkhisknpjz-Seczb ow [address] Work Phone: 10-04-2021 09:42-0400 Heart rate 102 /min Jaleesa Allan PhD Work Phone: GN-Wqcehvuymo-Slqxi ow [address] Work Phone: 10-04-2021 09:42-0400 Respiratory rate 17 /min Jaleesa Allan PhD Work Phone: BH-Vfourggeex-Nkmie ow [address] Work Phone: 10-04-2021 09:42-0400 Systolic blood pressure 141 mm[Hg] Jaleesa Allan PhD Work Phone: MW-Suxrsykygx-Uftvp ow [address] [facility] Work Phone: 07-17-2021 20:00-0500 Diastolic blood pressure 78 mm[Hg] Kaelyn Acuna MD Work Phone: [employer] 07-17-2021 20:00-0500 Heart rate 96 /min Kaelyn Acuna MD Work Phone: [employer] 07-17-2021 20:00-0500 SaO2% (BldA) [Mass fraction] 95 % Kaelyn Acuna MD Work Phone: [employer] 07-17-2021 20:00-0500 Systolic blood pressure 132 mm[Hg] Kaelyn Acuna MD Work Phone: [employer] 07-17-2021 19:24-0500 Body temperature 97.81 [degF] Kaelyn Acuna MD Work Phone: [employer] 07-17-2021 19:24-0500 Respiratory rate 18 /min Kaelyn Acuna MD Work Phone: [employer] 06-26-2021 02:10-0500 Diastolic blood pressure 74 mm[Hg] Rebecca Nayak MD Work Phone: [employer] 06-26-2021 02:10-0500 Heart rate 83 /min Rebecca Nayak MD Work Phone: [employer] 06-26-2021 02:10-0500 SaO2% (BldA) [Mass fraction] 97 % Rebecca Nayak MD Work Phone: [employer] 06-26-2021 02:10-0500 Systolic blood pressure 140 mm[Hg] Rebecca Nayak MD Work Phone: [employer] 06-25-2021 23:03-0500 Body temperature 99.81 [degF] Rebecca Nayak MD Work Phone: [employer] 06-25-2021 23:03-0500 Body weight 85.73 kg Rebecca Nayak MD Work Phone: [facility] 06-25-2021 23:03-0500 Respiratory rate 16 /min Rebecca Nayak MD Work Phone: [employer] 03-30-2020 10:43-0400 BMI (Body Mass Index) 25.03 kg/m2 Margaret Blancos EQ-Sfclaljdag-Rqzoy ow [address] Work Phone: 03-30-2020 10:43-0400 Body Temperature 98.1 [degF] Margaret Blancos GQ-Bbdadsyomw-Q ainb ow [address] Work Phone: 03-30-2020 10:43-0400 Body weight 82 kg Margaret Blancos TV-Ddytuuvpie-Va inb ow [address] Work Phone: 03-30-2020 10:43-0400 BP Diastolic 91 mm[Hg] Margaret Briceño HJ-Poitisesip-Qo inb ow [address] Work Phone: 03-30-2020 10:43-0400 BP Systolic 135 mm[Hg] Margaret Blancos UG-Bkvzjplzbh-Gw inb ow [address] Work Phone: 03-30-2020 10:43-0400 BSA (Body Surface Area) 2.03 m2 Margaret Blancos SP-Ekvwnoanpc-Aukwv ow [address] Work Phone: 03-30-2020 10:43-0400 Height 181 cm Margaret Blancos GW-Fnucezkshb-Jp inb ow [address] Work Phone: 03-30-2020 10:43-0400 Pulse (Heart Rate) 110 /min Margaret Briceño [facility] [address] Work Phone: 03-30-2020 10:43-0400 Pulse Oximetry 97 % Margaret Briceño VZ-Nyhtmrfnim-Bo inb ow [address] Work Phone: 03-30-2020 10:43-0400 Respiratory Rate 20 /min Margaret Briceño VV-Joqpurapvr-Y ainb ow [address] Work Phone: 03-09-2020 16:11-0400 BMI (Body Mass Index) 27.15 kg/m2 Irene Lopezinski AA-Gvdlejpqbn-Nwhia ow [address] Work Phone: 03-09-2020 16:11-0400 Body Temperature 98.1 [degF] Irene Harris DY-Rafiqnmcnk-T ainb ow [address] Work Phone: 03-09-2020 16:11-0400 Body weight 88.95 kg Irene Lopezinski BT-Bkzeczvwyo-Go inb ow [address] Work Phone: 03-09-2020 16:11-0400 BP Diastolic 85 mm[Hg] Irene Lopezinski CF-Ekmguzsptf-Qw inb ow [address] Work Phone: 03-09-2020 16:11-0400 BP Systolic 148 mm[Hg] Irene Lopezinski DK-Zeceguducw-Vv inb ow [address] Work Phone: 03-09-2020 16:11-0400 BSA (Body Surface Area) 2.1 m2 Irene Lopezinski EO-Zvjgkkuvds-Qbvtp ow [address] Work Phone: 03-09-2020 16:11-0400 Height 181 cm Irene Lopezinski SD-Elmnmwnwyi-Pu inb ow [address] Work Phone: 03-09-2020 16:11-0400 Pulse (Heart Rate) 101 /min Irene Lopezinski [facility] [address] Work Phone: 03-09-2020 16:11-0400 Pulse Oximetry 96 % Irene Lopezinski OZ-Vrswplckrd-Ca inb ow [address] Work Phone: 03-09-2020 16:11-0400 Respiratory Rate 20 /min Irene Lopezinski WP-Mclhfkbfnb-E ainb ow [address] Work Phone: 09-09-2019 11:09-0500 BMI (Body Mass Index) 27.2 kg/m2 Irene Lopezinski MS-Uacprwtnwn-Llzxu ow [address] Work Phone: 09-09-2019 11:09-0500 Body Temperature 98.1 [degF] Irene Lopezinski JS-Vfcbfcoodm-I ainb ow [address] Work Phone: 09-09-2019 11:09-0500 Body weight 89.1 kg Irene Lopezinski TV-Rlnhffxcrb-Mv inb ow [address] Work Phone: 09-09-2019 11:09-0500 BP Diastolic 96 mm[Hg] Irene Lopezinski NX-Xmyfuznaba-Vt inb ow [address] Work Phone: 09-09-2019 11:09-0500 BP Systolic 152 mm[Hg] Irene Lopezinski KL-Aebgofewfs-Ej inb ow [address] Work Phone: 09-09-2019 11:09-0500 BSA (Body Surface Area) 2.1 m2 Irene Lopezinski NI-Ttwlnphvea-Fdqoz ow [address] Work Phone: 09-09-2019 11:09-0500 Height 181 cm Irene Lopezinski UM-Wrkmuymagl-Ow inb ow [address] Work Phone: 09-09-2019 11:09-0500 Pulse (Heart Rate) 100 /min Irene Lopezinski [facility] [address] Work Phone: 09-09-2019 11:09-0500 Pulse Oximetry 98 % Irene Lopezinski QC-Rdqudlyrxr-Bt inb ow [address] Work Phone: 09-09-2019 11:09-0500 Respiratory Rate 20 /min Irene Lopezinski MH-Bgirljelty-H ainb ow [address] Work Phone: Encounters Encounter Date Encounter Type Care Provider Facility Start: 04-01-2024 End: 04-01-2024 ambulatory CARMELITA WATERS [facility] Start: 04-01-2024 End: 04-01-2024 Subsequent hospital visit by physician Arnulfo Nye6merry Pft Rm 2 [facility] Carla Comment on above: Cystic fibrosis (Mul ti) Start: 01-15-2024 End: 01-15-2024 Subsequent hospital visit by physician Rbc 669 Resp Pft Tech [facility] Comment on above: Cystic fibrosis (Mul ti) Start: 11-28-2023 End: 11-28-2023 Evaluation and management of inpatient Rbc 669 Resp Pft Tech [facility] Start: 11-22-2023 End: 11-22-2023 Subsequent hospital visit by physician Arnulfo [id number] Cr Nonv1 Holter/Ecg Resource [facility] Jose Comment on above: Arrived Start: 11-22-2023 End: 11-29-2023 Evaluation and management of inpatient Madeleine Small MD Work Phone: [facility] [place] [address] Comment on above: Cystic fibrosis (Mul ti) (Primary Dx); Type 2 diabetes mellitus with hyperglycemia, without long-term current use of insulin (Multi); Diabetes mellitus related to CF (cystic fibrosis) (Multi); Cystic fibrosis with pulmonary manifestations (Multi); Type 2 diabetes mellitus with hyperglycemia, unspecified whether superintendent container terminal insulin use (Multi); Type 2 diabetes mellitus with hyperglycemia, with long-term current use of insulin (Multi) Start: 11-20-2023 End: 11-20-2023 Subsequent hospital visit by physician Rbc 669 Resp Pft Tech [facility] Comment on above: Arthralgia associate d with cystic fibrosis (Multi) Start: 10-01-2023 End: 10-01-2023 Subsequent hospital visit by physician Daya Estrella MD Work Phone: [facility] Comment on above: Cystic fibrosis with pulmonary manifestations (CMS/HCC) Start: 09-18-2023 End: 09-18-2023 Subsequent hospital visit by physician Arnulfo [address] [facility] Deidra Comment on above: Mycobacterial, atypi jorge alberto; Cystic fibrosis (CMS/HCC) CF (cystic fibrosis) (CMS/HCC) Start: 03-01-2022 End: 03-01-2022 ambulatory MIRA NUNEZ Facility:[facility] Start: 01-10-2022 End: 01-10-[address] MARYLOU KAUFMAN Facility:[facility] Start: 01-03-2022 Patient encounter procedure Jaleesa Allan PhD Work Phone: ZJ-Xbhafelbhy-Okjxzgy [address] Work Phone: Start: 10-30-2021 Chart Update Jaleesa newton PhD Work Phone: SW-Ebtqfuggcg-Yqbnxli [address] Work Phone: Start: 10-27-2021 End: 10-28-2021 Emergency department patient visit [facility] Start: 10-27-2021 End: 10-27-2021 Emergency department patient visit Homer Sewell [facility] ED Comment on above: Acute viral syndrome (Primary Dx); Neurapraxia of left lower extremity, initial encounter Start: 10-25-2021 AUDIT Irene Harris MD Work Phone: VZ-Ykyulfwemq-Kkye Admin [facility] 737 Work Phone: Start: 10-11-2021 Chart Update Jaleesa newton PhD Work Phone: SM-Skhxcsiyud-[place] [address] Work Phone: Start: 10-10-2021 Chart Update Jaleesa newton PhD Work Phone: HH-Ashyooihzg-Asebfbn [address] Work Phone: Start: 10-05-2021 Chart Update Jaleesa newton PhD Work Phone: QJ-Tlbhvywosd-Njlimki [address] Work Phone: Start: 10-04-2021 Chart Update Jaleesa newton PhD Work Phone: IS-Nlaegdagbo-Ciuogcx [address] Work Phone: Start: 10-04-2021 CYSFBPPFUV, Provider : Jaleesa Allan, Status: Pen, Time: 10:00 AM Jaleesa Allan PhD Work Phone: EZ-Neuqmpincr-Vzahfzc [address] Work Phone: Start: 10-04-2021 Office outpatient vi sit 40 minutes Jaleesa Allan PhD Work Phone: KN-Xxdclzktnv-Nzuivxj [address] Work Phone: Start: 10-04-2021 SPIROMETRY, Provider : PULM LAB,PD_DIA_PULMLAB, Status: Pen, Time: 9:45 AM Jaleesa Allan PhD Work Phone: GQ-Jhdjcivuun-Enxfjkt [address] Work Phone: Start: 10-03-2021 AUDIT Jaleesa newton PhD Work Phone: RE-Fqfjgpyfhb-Wdixcnr [address] Work Phone: Start: 08-08-2021 End: 08-09-2021 ambulatory [facility] Start: 07-27-2021 End: 07-28-2021 ambulatory [facility] Start: 07-26-2021 End: 07-27-2021 ambulatory [facility] Start: 07-17-2021 Emergency department patient visit [facility] Start: 07-17-2021 End: 07-17-2021 Emergency department patient visit Kaelyn Acuna MD Work Phone: [facility] ED Comment on above: Viral illness (Prima ry Dx) Start: 06-26-2021 End: 06-26-2021 Emergency department patient visit REBECCA KISRINIVAS [facility] Start: 06-25-2021 End: 06-26-2021 Emergency department patient visit Rebecca Nayak MD Work Phone: [facility] ED Comment on above: Viral illness (Prima ry Dx); Acute upper respiratory infection; Dehydration Start: 2021 Chart Update Kapil Covarrubias [employer] INSPECTION SPECIALIST-CONSULTING GROUP ANALYST Work Phone: VE-Wedzjqaydr-Shsdbsd [address] Work Phone: Start: 03-30-2020 Patient encounter procedure Margaret PEDERSENFS-Enbydwiofg-Buwnaij [address] Work Phone: Start: 03-09-2020 Patient encounter procedure Irene PEDERSENPC-Cvhrxchbjq-Tbfeccz [address] Work Phone: Start: 09-18-2019 Patient encounter procedure Irene PEDERSENCS-Kdzqsvcdml-Qavdjzy [address] Work Phone: Start: 09-09-2019 Patient encounter procedure Irene PEDERSENAM-Vychyjtqkc-Ynfjcgv [address] Work Phone: Start: 06-10-2019 Patient encounter procedure Irene PEDERSENUQ-Hfkidnkhra-Ngqconq [address] Work Phone: Start: 03-11-2019 Patient encounter procedure Irene PEDERSENEO-Bgkoevygsd-Rzfniji [address] Work Phone: Start: 08-27-2018 Patient encounter procedure Irene PEDERSENFM-Tbcqbcdsey-Seurluw [address] Work Phone: Start: 07-21-2018 Patient encounter procedure Irene PEDERSENDU-Pkxzblfmqb-Memcvzr [address] Work Phone: Start: 12-18-2017 Patient encounter procedure Irene PEDRESENZF-Ehrffusgaa-Krpdxze [address] Work Phone: Start: 11-06-2017 Patient encounter procedure Irene PEDERSENGI-Migaqovrht-Ouoryzl [address] Work Phone: Procedures Date Procedure Procedure Detail Performing Clinician Start: 04-01-2024 Spmtry w/vc expirato ry juve w/wo mxml vol vntj Carmelita Waters MD Work Phone: Start: 11-29-2023 Glucose quantitative blood xcpt reagent strip Braxton Ambrosio MD Work Phone: Start: 11-29-2023 Glucose quantitative blood xcpt reagent strip Braxton Ambrosio MD Work Phone: Start: 11-29-2023 Acute hepatitis panel C leodan Dahl MD Work Phone: Start: 11-29-2023 Comprehensive metabo lic panel Marquise Mensah MD Work Phone: Start: 11-29-2023 Lipid panel Rosalio Dahl MD Work Phone: Start: 11-29-2023 Lipid 1996 panel - S gio or Plasma Madeleine Small MD Work Phone: Start: 11-28-2023 Glucose quantitative blood xcpt reagent strip Braxton Ambrosio MD Work Phone: Start: 11-28-2023 End: 11-28-2023 Comprehensive metabolic panel Marquise Mensah MD Work Phone: Start: 11-28-2023 Drug screen quantita tive vancomycin Marquise Mensah MD Work Phone: Start: 11-28-2023 Glucose quantitative blood xcpt reagent strip Braxton Ambrosio MD Work Phone: Start: 11-28-2023 Glucose quantitative blood xcpt reagent strip Melanie Prado DO Work Phone: Start: 11-28-2023 Insertion picc w/o i mg gdn 5 yr/> Marquise Mensah MD Work Phone: Start: 11-28-2023 AIRWAY CLEARANCE TECHNIQUES Rosalio Dahl MD Work Phone: Start: 11-28-2023 PULSE OXIMETRY, SPOT Ch rj Dahl MD Work Phone: Start: 11-28-2023 Spmtry w/vc expirato ry juve w/wo mxml vol vntj Marquise Mensah MD Work Phone: Start: 11-28-2023 Glucose quantitative blood xcpt reagent strip Melanie Prado DO Work Phone: Start: 11-27-2023 Glucose quantitative blood xcpt reagent strip Melanie Prado DO Work Phone: Start: 11-27-2023 AIRWAY CLEARANCE TECHNIQUES Rosalio Dahl MD Work Phone: Start: 11-27-2023 Cul prsmptv pthgnc o rganism scrn w/colony estimj Marquise Mensah MD Work Phone: Start: 11-27-2023 Glucose quantitative blood xcpt reagent strip Melanie Prado DO Work Phone: Start: 11-27-2023 Glucose quantitative blood xcpt reagent strip Melanie Prado DO Work Phone: Start: 11-27-2023 AIRWAY CLEARANCE TECHNIQUES Rosalio Dahl MD Work Phone: Start: 11-27-2023 Glucose quantitative blood xcpt reagent strip Melanie Prado DO Work Phone: Start: 11-27-2023 Us abdominal real ti me w/image limited Rosalio Dahl MD Work Phone: Start: 11-27-2023 End: 11-27-2023 Basic metabolic panel calcium total Marquise Mensah MD Work Phone: Start: 11-27-2023 AIRWAY CLEARANCE TECHNIQUES Rosalio Dahl MD Work Phone: Start: 11-27-2023 PULSE OXIMETRY, SPOT Ch rj Dahl MD Work Phone: Start: 11-26-2023 Glucose quantitative blood xcpt reagent strip Melanie Prado DO Work Phone: Start: 11-26-2023 Glucose quantitative blood xcpt reagent strip Melanie Prado DO Work Phone: Start: 11-26-2023 AIRWAY CLEARANCE TECHNIQUES Rosalio Dahl MD Work Phone: Start: 11-26-2023 Glucose quantitative blood xcpt reagent strip Melanie Prado DO Work Phone: Start: 11-26-2023 Glucose quantitative blood xcpt reagent strip Melanie Prado DO Work Phone: Start: 11-26-2023 AIRWAY CLEARANCE TECHNIQUES Rosalio Dahl MD Work Phone: Start: 11-26-2023 Comprehensive metabo lic panel Rosalio Dahl MD Work Phone: Start: 11-26-2023 Drug screen quantita tive vancomycin Rosalio Dahl MD Work Phone: Start: 11-26-2023 PULSE OXIMETRY, SPOT Ch rj Dahl MD Work Phone: Start: 11-25-2023 Glucose quantitative blood xcpt reagent strip Madeleine Small MD Work Phone: Start: 11-25-2023 Glucose quantitative blood xcpt reagent strip Madeleine Small MD Work Phone: Start: 11-25-2023 AIRWAY CLEARANCE TECHNIQUES Rosalio Dahl MD Work Phone: Start: 11-25-2023 Glucose quantitative blood xcpt reagent strip Madeleine Small MD Work Phone: Start: 11-25-2023 End: 11-25-2023 Comprehensive metabolic panel Rosalio Dahl MD Work Phone: Start: 11-25-2023 AIRWAY CLEARANCE TECHNIQUES Rosalio Dahl MD Work Phone: Start: 11-25-2023 PULSE OXIMETRY, SPOT Cm Dahl MD Work Phone: Start: 11-24-2023 Glucose quantitative blood xcpt reagent strip Madeleine Small MD Work Phone: Start: 11-24-2023 AIRWAY CLEARANCE TECHNIQUES Rosalio Dahl MD Work Phone: Start: 11-24-2023 Glucose quantitative blood xcpt reagent strip Madeleine Small MD Work Phone: Start: 11-24-2023 Glucose quantitative blood xcpt reagent strip Madeleine Small MD Work Phone: Start: 11-24-2023 Glucose quantitative blood xcpt reagent strip Madeleine Small MD Work Phone: Start: 11-24-2023 AIRWAY CLEARANCE TECHNIQUES Rosalio Dhal MD Work Phone: Start: 11-24-2023 PULSE OXIMETRY, SPOT Cm Dahl MD Work Phone: Start: 11-24-2023 Comprehensive metabo lic panel Beatriz Bailey MD Work Phone: Start: 11-23-2023 Glucose quantitative blood xcpt reagent strip Madeleine Small MD Work Phone: Start: 11-23-2023 Glucose quantitative blood xcpt reagent strip Madeleine Small MD Work Phone: Start: 11-23-2023 Iaad ia qual/semiqua n multiple step aspergillus Marquise Mensah MD Work Phone: Start: 11-23-2023 Drug screen quantita tive vancomycin Rosalio Dahl MD Work Phone: Start: 11-23-2023 Glucose quantitative blood xcpt reagent strip Madeleine Small MD Work Phone: Start: 11-23-2023 Glucose quantitative blood xcpt reagent strip Madeleine Small MD Work Phone: Start: 11-23-2023 AIRWAY CLEARANCE TECHNIQUES Rosalio Dahl MD Work Phone: Start: 11-22-2023 Urinalysis microscop ic panel - Urine Qualitative by Automated Rosalio Dahl MD Work Phone: Start: 11-22-2023 Urnls dip stick/tabl et reagent auto microscopy Rosalio Dahl MD Work Phone: Start: 11-22-2023 Iadna s aureus methi cillin resist amp probe tq Rosalio Dahl MD Work Phone: Start: 11-22-2023 Influenza virus A an d B RNA [Identifier] in Unspecified specimen by CAROL with probe detection Rosalio Dahl MD Work Phone: Start: 11-22-2023 Respiratory syncytia l virus RNA [Presence] in Respiratory specimen by CAROL with probe detection Rosalio Dahl MD Work Phone: Start: 11-22-2023 SARS-CoV-2 (COVID-19 ) RNA [Presence] in Respiratory specimen by CAROL with probe detection Rosalio Dahl MD Work Phone: Start: 11-22-2023 Ecg routine ecg w/le ast 12 lds trcg only w/o i&r Marquise Mensah MD Work Phone: Start: 11-22-2023 Glucose quantitative blood xcpt reagent strip Madeleine Small MD Work Phone: Start: 11-22-2023 AIRWAY CLEARANCE TECHNIQUES Rosalio Dahl MD Work Phone: Start: 11-22-2023 Assay of phosphorus inorganic Rosalio Dahl MD Work Phone: Start: 11-22-2023 AIRWAY CLEARANCE TECHNIQUES Rosalio Dahl MD Work Phone: Start: 10-01-2023 End: 10-01-2023 Smr prim src gram/giemsa stain bct fungi/cell Daya Estrella MD Work Phone: Start: 10-01-2023 Bacteria identified in Sputum by Cystic fibrosis respiratory culture Daya Estrella MD Work Phone: Start: 10-01-2023 Glucose quantitative blood xcpt reagent strip Daya Estrella MD Work Phone: Start: 09-18-2023 Ct thorax w/o contra st material Carmelita Waters MD Work Phone: Start: 09-18-2023 Spmtry w/vc expirato ry juve w/wo mxml vol vntj Carmelita Waters MD Work Phone: Start: 04-24-2023 Lipid 1996 panel - S gio or Plasma Cmc 1 Start: 01-03-2022 Follow-up visit Start: 10-27-2021 COVID-19, RAPID Homer Sewell Work Phone: Start: 10-27-2021 Iaadiadoo influenza Mat thew Donato Work Phone: Start: 10-27-2021 Radiologic exam ches t single view Homer Sewell DO Start: 10-27-2021 Basic metabolic pane l calcium total Homer Sewell DO Start: 10-27-2021 Ecg routine ecg w/le ast 12 lds w/i&r Homer Sewell DO Start: 07-17-2021 COVID-19, RAPID Kaelyn Acuna MD Work Phone: Start: 07-17-2021 Radiologic exam ches t single view Kaelyn Acuna MD Work Phone: Start: 06-25-2021 COVID-19, RAPID Rebecca Nayak MD Work Phone: Start: 06-25-2021 Iaadiadoo influenza Fatmata Nayak MD Work Phone: Start: 06-25-2021 Radiologic exam ches t single view Rebecca Nayak MD Work Phone: Start: 04-06-2020 Colonoscopy Margaret Gustabo nicko Start: 04-06-2020 Endoscopy - Upper GI Li nda Briceño Start: 04-05-2020 Colonoscopy Margaret Gustabo laures Start: 04-05-2020 Endoscopy - Upper GI Li nda Briceño Start: 03-30-2020 Alpha-fetoprotein serum Margaret Pérezmings Start: 03-30-2020 Colonoscopy Margaret Montejo ings Start: 03-30-2020 Endoscopy - Upper GI Li tevina Keyanna Start: 03-14-2020 Ultrasound Liver Irene bautista Start: 03-09-2020 25 hydroxy includes fractions if performed Irene Harris Start: 03-09-2020 Albumin, Urine Spot Bet conrado Harris Start: 03-09-2020 Assay of ferritin Irene Harris Start: 03-09-2020 Assay of gammaglobulin ige Irene Harris Start: 03-09-2020 Assay of glutamyltra se gamma Irene Harris Start: 03-09-2020 Assay of magnesium Irene Harris Start: 03-09-2020 Assay of thyroid stimulating hormone tsh Irene Harris Start: 03-09-2020 Assay of thyroxine total Irene Harris Start: 03-09-2020 Assay of tocopherol alpha vitamin e Irene Harris Start: 03-09-2020 Assay of vitamin a Irene Harris Start: 03-09-2020 Blood count complete auto&auto difrntl wbc Irene Harris Start: 03-09-2020 C-reactive protein Irene Harris Start: 03-09-2020 Comprehensive metabo lic 2000 panel Irene Harris Start: 03-09-2020 Hemoglobin glycosylated a1c Irene Harris Start: 03-09-2020 Iron + TIBC, Serum Irene Harris Start: 03-09-2020 Lipid panel Irene garcia Start: 03-09-2020 PT/INR Irene Barnett [facility] Start: 03-09-2020 Sedimentation rate r bc automated Irene Harris Start: 03-09-2020 Testosterone [Mass/v olume] in Serum or Plasma Irene Harris Start: 03-09-2020 Thromboplastin time partial plasma/whole blood Irene Harris Start: 03-09-2020 Urnls dip stick/tabl et rgnt auto w/o microscopy Irene Harris Start: 03-08-2020 Cul bact xcpt urine blood/stool aerobic isol Irene Harris Start: 02-22-2020 Coronavirus 2019 RNA by PCR, Symptomatic Irene Harris Start: 06-06-2019 Cul bact xcpt urine blood/stool aerobic isol Irene Harris Arthroplasty of knee Kapil Covarrubias AUTO INSPECTION SPECIALIST-CONSULTING GROUP ANALYST Work Phone: Hernia repair Kapil Murrell PRN-CONSULTING GROUP ANALYST Work Phone: History of Knee Surg bernard Left Irene Harris History of Rhinoplasty Irene Harris History of Simple Ex cision Of Nasal Polyp Irene Harris Nasal polypectomy Kapil ahuja AUTO INSPECTION SPECIALIST-CONSULTING GROUP ANALYST Work Phone: Plan of Treatment Date Care Activity Detail Author Start: 2034 Zoster Vaccines (1 of 2) Zoster Vacc aubrey (1 of 2) [facility] Start: 01-14-2025 Urine screening for protein Diabetes: Urine Protein Screening [facility] Start: 11-28-2024 Lipid panel Lipid Panel [facility] Start: 06-17-2024 End: 06-17-2024 Telemedicine consultation with patient 06/17/2024 3:30 PM EST Telemedicine [facility] [address] [place] [id number] [place] [address] [place] [address] [facility] Start: 05-27-2024 End: 05-27-[address] [facility] Start: 04-24-2024 Lipid panel Lipid Panel [facility] Start: 04-24-2024 Urine screening for protein Diabetes: Urine Protein Screening [facility] Start: 04-16-2024 Hemoglobin A1c measurement Diabetes: Hemoglobin A1C [facility] Start: 04-01-2024 End: 04-01-2024 ambulatory 04/01/2024 8:30 AM EDT Multidisciplinary Visit [facility] [address] [facility] [address] [place] [phone] [place] [address] [place] [address] [facility] Start: 03-08-2024 COVID-19 Vaccine ( season) COVID-19 Vaccine ( season) [facility] Start: 03-08-2024 Influenza vaccination Influenza Vacc ine (#1) [facility] Start: 02-22-2024 Hemoglobin A1c measurement Diabetes: Hemoglobin A1C [facility] Start: 12-20-2023 Hemoglobin A1c measurement Diabetes: Hemoglobin A1C [facility] Start: 12-18-2023 End: 12-18-2023 ambulatory 12/18/2023 1:00 PM EDT Multidisciplinary Visit [facility] [address] [facility] [address] [place] [phone] Kapil Covarrubias APRN-[facility] [address] [facility] Department [place] [address] [facility] Start: 12-18-2023 End: 12-18-2023 Patient encounter procedure [facility] Start: 11-29-2023 End: 11-28-2024 Comprehensive metabolic 2000 panel - Serum or Plasma Comprehensive metabolic panel Lab Routine Type 2 diabetes mellitus with hyperglycemia, with long-term current use of insulin (Multi) Expected: 11/29/2023 (Approximate), Expires: 11/28/2024 [facility] Work Phone: Comment on above: Expected: 11/29/2023 (Approximate), Expires: 11/28/2024 Start: 11-29-2023 End: 11-28-2024 CT Chest WO contrast CT chest wo IV contrast Imaging Routine Cystic fibrosis with pulmonary manifestations (Multi) Expected: 11/29/2023, Expires: 11/28/2024 [facility] Work Phone: Comment on above: Expected: 11/29/2023 , Expires: 11/28/2024 Start: 07-25-2023 Hemoglobin A1c measurement Diabetes: Hemoglobin A1C [facility] Start: 03-08-2023 COVID-19 Vaccine ( season) COVID-19 Vaccine () [facility] Start: 08-08-2022 Depression Screen Depression Screen [facility] Start: 08-08-2022 Diabetic foot examination Diabetic f oot exam [facility] Start: 08-08-2022 Urine screening for protein Diabetic microalbuminuria test [facility] Start: 07-26-2022 Lipid panel Lipids [facility] Start: 03-08-2022 Influenza vaccination Flu vacc ine (Season Ended) [facility] Start: 01-03-2022 CFGASFUV, Provider: Margaret Briceño, Status: Pen, Time: 2:30 PM CFGASFUV, Provider: Margaret Briceño, Status: Pen, Time: 2:30 PM UJ-Bwnfuxfkai-Ymf nbow [address] Work Phone: Start: 01-03-2022 CYSFBPPFUV, Provider : Jaleesa Allan, Status: Pen, Time: 2:00 PM CYSFBPPFUV, Provider: Jaleesa Allan, Status: Pen, Time: 2:00 PM BF-Anfmmzypbh-Jqi nbow [address] Work Phone: Start: 01-03-2022 SPIROMETRY, Provider : PULM LAB,PD_DIA_PULMLAB, Status: Pen, Time: 1:45 PM SPIROMETRY, Provider: PULM LAB,PD_DIA_PULMLAB, Status: Pen, Time: 1:45 PM PW-Zvggosvoek-Vtt nbow [address] Work Phone: Start: 11-29-2021 CFENDOPFUV, Provider : Irene Harris, Status: Pen, Time: 1:00 PM CFENDOPFUV, Provider: Irene Harris, Status: Pen, Time: 1:00 PM ZY-Urvdyeafvz-Esu nbow [address] Work Phone: Start: 11-06-2021 End: 11-06-2021 Patient encounter procedure 11/06/2021 Office Visit Primary Care Mirian Camilo MD [address] [place] [address] [facility] Start: 10-24-2021 Hemoglobin A1c measurement A1C test (Diabetic or Prediabetic) [facility] Start: 10-04-2021 CYSFBPPFUV, Provider : Jaleesa Allan, Status: Pen, Time: 10:00 AM CYSFBPPFUV, Provider: Jaleesa Allan, Status: Pen, Time: 10:00 AM GT-Oitwrdorax-Bpg well [address] Work Phone: Start: 10-04-2021 SPIROMETRY, Provider : PULM LAB,PD_DIA_PULMLAB, Status: Pen, Time: 9:45 AM SPIROMETRY, Provider: PULM LAB,PD_DIA_PULMLAB, Status: Pen, Time: 9:45 AM SN-Kasupsvgoe-Ofm well [address] Work Phone: Start: 05-04-2021 COVID-19 Vaccine (3 - Booster for Pfizer series) COVID-19 Vaccine (3 - Booster for Pfizer series) [facility] Start: 04-04-2021 COVID-19 Vaccine (3 - Booster for Pfizer series) COVID-19 Vaccine (3 - Booster for Pfizer series) [facility] Start: 03-08-2021 Influenza vaccination Flu vaccine (# 1) [facility] Start: 05-03-2020 Colonoscopy Colonoscopy [facility] Work Phone: Start: 05-03-2020 Endoscopy - Upper GI [facility] Work Phone: Start: 03-31-2020 Ultrasound Liver [facility]-Ped iatrics-Hou nbow [address] Work Phone: Start: 03-30-2020 Colonoscopy Colonoscopy [facility]-Pediatr ics-Hou nbow [address] Work Phone: Start: 03-30-2020 Endoscopy - Upper GI [facility] -Pediatrics-Hou nbow [address] Work Phone: Start: 12-21-2011 Hemoglobin A1c measurement A1C test (Diabetic or Prediabetic) [facility] Start: 12-16-2011 Pneumococcal 0-64 ye ars Vaccine (2 - PCV) Pneumococcal 0-64 years Vaccine (2 - PCV) [facility] Start: 12-16-2011 Pneumococcal Vaccine : Pediatrics (0 to 5 Years) and At-Risk Patients (6 to 64 Years) (2 - PCV) Pneumococcal Vaccine: Pediatrics (0 to 5 Years) and At-Risk Patients (6 to 64 Years) (2 - PCV) [facility] Start: 12-16-2011 Pneumococcal Vaccine : Pediatrics (0 to 5 Years) and At-Risk Patients (6 to 64 Years) (2 of 2 - PCV) Pneumococcal Vaccine: Pediatrics (0 to 5 Years) and At-Risk Patients (6 to 64 Years) (2 of 2 - PCV) [facility] Start: 2006 DTaP/Tdap/Td Vaccine s (1 - Tdap) DTaP/Tdap/Td Vaccines (1 - Tdap) [facility] Start: 2003 DTaP/Tdap/Td vaccine (1 - Tdap) DTaP/Tdap/Td vaccine (1 - Tdap) [facility] Start: 2003 Hepatitis A Vaccines (1 of 2 - Risk 2-dose series) Hepatitis A Vaccines (1 of 2 - Risk 2-dose series) [facility] Start: 2003 Hepatitis B vaccine (1 of 3 - Risk 3-dose series) Hepatitis B vaccine (1 of 3 - Risk 3-dose series) [facility] Start: 2003 Hepatitis B Vaccines (1 of 3 - 19+ 3-dose series) Hepatitis B Vaccines (1 of 3 - 19+ 3-dose series) [facility] Start: 2002 Diabetic retinal exam Diabetic retin al exam [facility] Start: 2002 Hepatitis C screening Hepatitis C [facility] Start: 1999 HIV screening HIV screen [facility] Start: 09-21-1997 Varicella vaccination [facility] Start: 1996 Depression Screen Depression Screen [facility] Start: 1994 Diabetic foot examination Diabetes: Foot Exam [facility] Start: 1994 Glaucoma screening Diabetes: R etinopathy Screening [facility] Start: 1985 Varicella vaccine (1 of 2 - 2-dose childhood series) Varicella vaccine (1 of 2 - 2-dose childhood series) [facility] Start: 1984 Hepatitis B Vaccines (1 of 3 - 3-dose series) Hepatitis B Vaccines (1 of 3 - 3-dose series) [facility] Start: 1984 Hepatitis C screening Hepatitis C [facility] Start: 1984 HIV screening HIV Screening [facility] Start: 1984 Yearly Adult Physical Yearly Adult P hysical [facility] Airway Clearance Techniques Device/modality: Per RT discretion [facility] Work Phone: Comment on above: Respiratory use only - once daily at 0700 until discontinued starting 11/22/2023, 6 completed Respiratory use only - 0700, 1300, 1900 until discontinued starting 11/22/2023, 12 completed Bacteria identified in Sputum by Cystic fibrosis respiratory culture [facility] Service Area Work Phone: Comment on above: Release Upon Orderin g for 1 Occurrences starting 10/01/2023 Bacteria identified in Unspecified specimen by Respiratory culture Respiratory Culture/Smear Microbiology Routine Cystic fibrosis with pulmonary manifestations (CMS/HCC) 10/01/2023 2:11 PM EDT [facility] Work Phone: End: 10-01-2023 Bronchoscopy study [facility] Service Area Work Phone: Comment on above: Once for 1 Occurrenc es starting 10/01/2023 until 10/01/2023 End: 12-03-2023 CBC W Auto Differential panel - Blood CBC and Auto Differential Lab Routine Morning draw (Lab) for 1 Weeks starting 11/27/2023 until 12/03/2023, 3 completed [facility] Work Phone: Comment on above: Morning draw (Lab) f or 1 Weeks starting 11/27/2023 until 12/03/2023, 3 completed End: 10-01-2023 Continuous Pulse oximetry, In Phase 1 Continuous Pulse oximetry, In Phase 1 Respiratory Care Routine Continuous until discontinued starting 10/01/2023 [facility] Work Phone: Comment on above: Continuous until dis continued starting 10/01/2023 End: 09-18-2023 CT Chest WO contrast [facility] Work Phone: Comment on above: Once for 1 Occurrenc es starting 09/18/2023 until 09/18/2023 End: 10-27-2021 Culture, Blood 1 [facility] Work Phone: Comment on above: One Time for 1 Occur rences starting 10/27/2021 until 10/27/2021 EKG 12 Lead EKG 12 Lead ECG STAT 10/27/2021 7:41 PM EDT [facility] Work Phone: End: 11-22-2023 Electrocardiogram 12 lead PRN ACS symptoms [facility] Work Phone: Comment on above: As needed until disc ontinued starting 11/22/2023 Once for 1 Occurrenc es starting 11/22/2023 until 11/22/2023 Fungus identified in Unspecified specimen by Culture [facility] Work Phone: Comment on above: Release Upon Orderin g for 1 Occurrences starting 10/01/2023 Glucose [Mass/volume ] in Serum or Plasma POCT Glucose Point of Care Testing - Docked Device Routine As needed (Lab) for 1 Occurrences starting 10/01/2023 [facility] Work Phone: Comment on above: As needed (Lab) for 1 Occurrences starting 10/01/2023 Glucose [Mass/volume ] in Serum or Plasma POCT Glucose Point of Care Testing - Docked Device Routine As needed (Lab) until discontinued starting 11/22/2023 [facility] Work Phone: Comment on above: As needed (Lab) unti l discontinued starting 11/22/2023 End: 12-03-2023 Hepatic function 2000 panel - Serum or Plasma Hepatic function panel Lab Routine Morning draw (Lab) for 1 Weeks starting 11/27/2023 until 12/03/2023, 3 completed [facility] Work Phone: Comment on above: Morning draw (Lab) f or 1 Weeks starting 11/27/2023 until 12/03/2023, 3 completed End: 12-03-2023 Magnesium [Mass/volume] in Serum or Plasma Magnesium Lab Routine Morning draw (Lab) for 1 Weeks starting 11/27/2023 until 12/03/2023, 3 completed [facility] Work Phone: Comment on above: Morning draw (Lab) f or 1 Weeks starting 11/27/2023 until 12/03/2023, 3 completed Methicillin resistan t Staphylococcus aureus [Presence] in Nose by Organism specific culture Staphylococcus Aureus/MRSA Colonization, Culture - PICC Only Microbiology Routine 11/27/2023 6:02 PM EDT [facility] Work Phone: Mycobacterium sp identified in Unspecified specimen by Organism specific culture [facility] Work Phone: Comment on above: Release Upon Orderin g for 1 Occurrences starting 10/01/2023 End: 11-29-2023 Nuclear Ab [Presence] in Serum by Hep2 substrate [facility] Work Phone: Comment on above: Once (Lab) for 1 Occ urrences starting 11/29/2023 until 11/29/2023 End: 11-22-2023 Phosphate [Mass/volume] in Serum or Plasma Phosphorus Lab Timed Once for 1 Occurrences starting 11/22/2023 until 11/22/2023 [facility] Work Phone: Comment on above: Once for 1 Occurrenc es starting 11/22/2023 until 11/22/2023 Pulmonary function testing Pulmonary function testing PFT Routine 11/28/2023 5:15 AM EDT [facility] Work Phone: Pulse oximetry, spot daily and PRN Pulse oximetry, spot daily and PRN Respiratory Care Routine Daily until discontinued starting 11/22/2023, 5 completed [facility] Work Phone: Comment on above: Daily until disconti nued starting 11/22/2023, 5 completed End: 12-03-2023 Renal function 2000 panel - Serum or Plasma Renal Function Panel Lab Routine Morning draw (Lab) for 1 Weeks starting 11/27/2023 until 12/03/2023 [facility] Work Phone: Comment on above: Morning draw (Lab) f or 1 Weeks starting 11/27/2023 until 12/03/2023 End: 09-18-2023 Spirometry [facility] Work Phone: Comment on above: Once for 1 Occurrenc es starting 09/18/2023 until 09/18/2023 End: 11-20-2023 Spirometry [facility] Work Phone: Comment on above: Once for 1 Occurrenc es starting 11/20/2023 until 11/20/2023 End: 01-15-2024 Spirometry [facility] Work Phone: Comment on above: Once for 1 Occurrenc es starting 01/15/2024 until 01/15/2024 End: 12-01-2023 Vancomycin [Mass/volume] in Serum or Plasma Vancomycin Lab Routine Morning draw (Lab) for 1 Occurrences starting 12/01/2023 until 12/01/2023 [facility] Work Phone: Comment on above: Morning draw (Lab) f or 1 Occurrences starting 12/01/2023 until 12/01/2023 WC-Nwgkrgqcyq-J ai nbow [address] Work Phone: NEGATED: Highlighted row has been ruled out! Planned Goals not documented WP-Aiiihwdnve-Kih nbow [address] Work Phone: Immunizations Immunization Date Immunization Notes Care Provider Ulises cantu 04-01-2024 influenza, seasonal, injectable, preservative free [facility] [place] 2 [facility] 04-24-2023 influenza, injectabl e, quadrivalent, preservative free [facility] 1 [facility] 04-24-2023 influenza virus vacc ine, unspecified formulation [employer] [facility] Work Phone: 04-07-2021 influenza virus vacc ine, unspecified formulation Jaleesa Allan PhD Work Phone: XS-Rtbjpfbvdh-Rjjdf ow [address] Work Phone: Comment on above: Series: 11-02-2020 Pfizer-BioNTech COVI D-19 Vacc 30 MCG/0.3ML Intramuscular Suspension Ankbárbara Covarrubias AUTO INSPECTION SPECIALIST-CONSULTING GROUP ANALYST Work Phone: AR-Mygcbdzzpm-Oeosp ll [address] Work Phone: 10-12-2020 Pfizer-BioNTech COVI D-19 Vacc 30 MCG/0.3ML Intramuscular Suspension Ankbárbara Covarrubias AUTO INSPECTION SPECIALIST-CONSULTING GROUP ANALYST Work Phone: TD-Ovnznphvno-Xtrbk ll [address] Work Phone: 09-09-2019 influenza, seasonal, injectable [address] Work Phone: 09-09-2019 influenza, injectabl e, quadrivalent, preservative free; Translations: [Flulaval Quadrivalent 0.5 ML Intramuscular Suspension Prefilled Syringe] Irene Harris OB-Pufsgbohyy-Fpztd ow [address] Work Phone: Comment on above: Series: 04-11-2019 influenza, seasonal, injectable Kapil Covarrubias AUTO INSPECTION SPECIALIST-CONSULTING GROUP ANALYST Work Phone: YX-Usmeqotxbu-Jfgqa ll [address] Work Phone: 07-21-2018 influenza, injectabl e, quadrivalent, preservative free; Translations: [Flulaval Quadrivalent 0.5 ML Intramuscular Suspension Prefilled Syringe] Irene Harris DA-Octdiwkgbi-Fkfso ow [address] Work Phone: Comment on above: Series: 07-21-2018 influenza, seasonal, injectable [address] Work Phone: 06-27-2016 influenza, seasonal, injectable, preservative free; Translations: [Fluvirin 0.5 ML Intramuscular Suspension Prefilled Syringe] Irene Harris FU-Jhpqxvgmws-Dntcd ow [address] Work Phone: Comment on above: Series: 12-15-2010 pneumococcal polysaccharide vaccine, 23 valent Irene Harris XQ-Sngwocrmsx-Prssg ow [address] Work Phone: Comment on above: Series: 04-28-2003 influenza virus vacc ine, unspecified formulation Kapil Covarrubias AUTO INSPECTION SPECIALIST-CONSULTING GROUP ANALYST Work Phone: VQ-Nijgagyfcm-Gpxde ll [address] Work Phone: Comment on above: Series: 04-28-2003 influenza, seasonal, injectable Irene Harris YN-Ajxuaebfns-Ollqf ow [address] Work Phone: 04-29-2002 influenza virus vacc ine, unspecified formulation Kapil Covarrubias AUTO INSPECTION SPECIALIST-CONSULTING GROUP ANALYST Work Phone: IY-Wzrvrxextr-Prnmv ll [address] Work Phone: Comment on above: Series: 04-29-2002 influenza, seasonal, injectable Irene Harris [place]-Lwqoacvscs-Kwkgk ow [address] Work Phone: 08-24-1997 measles, mumps and rubella virus vaccine Kapil Covarrubias AUTO INSPECTION SPECIALIST-CONSULTING GROUP ANALYST Work Phone: SR-Qxgqlwelhb-Eqtwx ll [address] Work Phone: Payers Date Payer Category Payer Unknown [id number] 2023 Unknown 2020 Private Health Insurance [facility] [id number] 2020-Present P Ivana Fleming [address] [place] [address] [id number] 1984 Unknown [id number] 1984 Unknown [id number] 1984 Unknown [id number] [id number] 1984 Unknown [id number] [id number] 1984 Unknown [id number] [id number] 1984 Unknown [id number] [id number] 1984 Unknown [id number] [id number] 1984 Unknown [id number] 1984 Unknown [id number] 1960 Unknown [id number] Social History Date Type Detail Facility Tobacco smoking status [facility] Tobacco smoking consumption unknown [employer] Phone: Start: 1985 Sex Assigned At Not on file [employer] Phone: Start: 10-17-2021 End: 04-01-2024 Exposure to SARS-CoV-2 (event) Not sure [employer] Phone: Exposure to SARS-CoV-2 (event) Yes [employer] Work Phone: Start: 04-24-2023 End: 11-25-2023 Rarely consumes alcohol Rarely consumes alcohol [facility] Start: 07-25-2021 End: 04-24-2023 Tobacco smoking status NHIS Never smoked tobacco [employer] Work Phone: Start: 07-25-2021 Tobacco use and exposure Smokeless tobacco non-user [employer] Work Phone: Start: 08-08-2021 History SDOH Financial 5 [employer] Work Phone: Start: 08-08-2021 History SDOH Food Worry 1 [employer] Work Phone: Start: 08-08-2021 History SDOH Transport Med 2 [employer] Work Phone: Start: 04-24-2023 Tobacco use and exposure User of smokeless tobacco [facility] Work Phone: History of tobacco use Chews Tobacco [facility] Work Phone: Start: 04-24-2023 Alcohol intake Current drinke r of alcohol (finding) [facility] Work Phone: Start: 04-24-2023 End: 11-25-2023 Tobacco use panel [facility] (I/We) worried whether (my/our) food would run out before (I/we) got money to buy more. Patient declined [facility] In the past 12 months, was there a time when you were not able to pay the mortgage or rent on time? No [facility] Work Phone: NEGATED: Highlighted row - - [facility] [address] Work Phone: Medical Equipment Procedure Code Equipment Code Equipment Origin al Text Equipment Identifier Dates Start: 07-30-2018 End: 11-26-2023 Accu-Chek FastCl ix Lancets use to test blood sugar 6-7 units daily Quantity: 6 Refills: 3 Kimberly MD, Irene Start : 30-Jul-2018 Active 102 Unit Box Start: 07-30-2018 Accu-Chek Guide In Vitro Strip test 6-7 times daily Quantity: 6 Refills: 3 Irene Harris MD Start : 30-Jul-2018 Active 100 Strip [...] USE DIRECTED. Quantity: 1 Refills: 1 Irene Harris MD Start : 30-Jul-2018 Active Start: 07-30-2018 Accu-Chek FastCl ix Lancets use to test blood sugar 6-7 units daily Quantity: 6 Refills: 3 Irene Harris MD Start : 30-Jul-2018 Active 102 Unit Box Start: 07-30-2018 Accu-Chek Guide In Vitro Strip test 6-7 times daily Quantity: 6 Refills: 3 Irene Harris MD Start : 30-Jul-2018 Active 100 Strip [...] USE DIRECTED. Quantity: 1 Refills: 1 Irene Harris MD Start : 30-Jul-2018 Active Start: 07-30-2018 Accu-Chek FastCl ix Lancets use to test blood sugar 6-7 units daily Quantity: 6 Refills: 3 Irene Harris MD Start : 30-Jul-2018 Active 102 Unit Box Start: 07-30-2018 Accu-Chek Guide In Vitro Strip test 6-7 times daily Quantity: 6 Refills: 3 Irene Harris MD Start : 30-Jul-2018 Active 100 Strip [...] USE DIRECTED. Quantity: 1 Refills: 1 Irene Harris MD Start : 30-Jul-2018 Active Start: 07-30-2018 Accu-Chek FastCl ix Lancets use to test blood sugar 6-7 units daily Quantity: 6 Refills: 3 Irene Harris MD Start : 30-Jul-2018 Active 102 Unit Box Start: 07-30-2018 Accu-Chek Guide In Vitro Strip test 6-7 times daily Quantity: 6 Refills: 3 Irene Harris MD Start : 30-Jul-2018 Active 100 Strip [...] USE DIRECTED. Quantity: 1 Refills: 1 Irene Harris MD Start : 30-Jul-2018 Active Start: 07-30-2018 Accu-Chek FastCl ix Lancets use to test blood sugar 6-7 units daily Quantity: 6 Refills: 3 Irnee Harris MD Start : 30-Jul-2018 Active 102 Unit Box Start: 07-30-2018 Accu-Chek Guide In Vitro Strip test 6-7 times daily Quantity: 6 Refills: 3 Irene Harris MD Start : 30-Jul-2018 Active 100 Strip [...] USE DIRECTED. Quantity: 1 Refills: 1 Irene Harris MD Start : 30-Jul-2018 Active Start: 07-30-2018 Accu-Chek FastCl ix Lancets use to test blood sugar 6-7 units daily Quantity: 6 Refills: 3 Irene Harris MD Start : 30-Jul-2018 Active 102 Unit Box Start: 07-30-2018 Accu-Chek Guide In Vitro Strip test 6-7 times daily Quantity: 6 Refills: 3 Irene Harris MD Start : 30-Jul-2018 Active 100 Strip [...] USE DIRECTED. Quantity: 1 Refills: 1 Irene Harris MD Start : 30-Jul-2018 Active Start: 07-30-2018 Accu-Chek FastCl ix Lancets use to test blood sugar 6-7 units daily Quantity: 6 Refills: 3 Irene Harris MD Start : 30-Jul-2018 Active 102 Unit Box Start: 07-30-2018 Accu-Chek Guide In Vitro Strip test 6-7 times daily Quantity: 6 Refills: 3 Irene Harris MD Start : 30-Jul-2018 Active 100 Strip [...] USE DIRECTED. Quantity: 1 Refills: 1 Irene Harris MD Start : 30-Jul-2018 Active Start: 07-30-2018 Accu-Chek FastCl ix Lancets use to test blood sugar 6-7 units daily Quantity: 6 Refills: 3 Irene Harris MD Start : 30-Jul-2018 Active 102 Unit Box Start: 07-30-2018 Accu-Chek Guide In Vitro Strip test 6-7 times daily Quantity: 6 Refills: 3 Irene Harris MD Start : 30-Jul-2018 Active 100 Strip [...] USE DIRECTED. Quantity: 1 Refills: 1 Irene Harris MD Start : 30-Jul-2018 Active Start: 07-30-2018 Accu-Chek FastCl ix Lancets use to test blood sugar 6-7 units daily Quantity: 6 Refills: 3 Irene Harris MD Start : 30-Jul-2018 Active 102 Unit Box Start: 07-30-2018 Accu-Chek Guide In Vitro Strip test 6-7 times daily Quantity: 6 Refills: 3 Ierne Harris MD Start : 30-Jul-2018 Active 100 Strip [...] USE DIRECTED. Quantity: 1 Refills: 1 Irene Harris MD Start : 30-Jul-2018 Active Start: 07-30-2018 Accu-Chek FastCl ix Lancets use to test blood sugar 6-7 units daily Quantity: 6 Refills: 3 Irene Harris MD Start : 30-Jul-2018 Active 102 Unit Box Start: 07-30-2018 Accu-Chek Guide In Vitro Strip test 6-7 times daily Quantity: 6 Refills: 3 Irene Harris MD Start : 30-Jul-2018 Active 100 Strip [...] USE DIRECTED. Quantity: 1 Refills: 1 Irene Harris MD Start : 30-Jul-2018 Active Start: 07-30-2018 Accu-Chek FastCl ix Lancets use to test blood sugar 6-7 units daily Quantity: 6 Refills: 3 Irene Harris MD Start : 30-Jul-2018 Active 102 Unit Box Start: 07-30-2018 Accu-Chek Guide In Vitro Strip test 6-7 times daily Quantity: 6 Refills: 3 Irene Harris MD Start : 30-Jul-2018 Active 100 Strip [...] USE DIRECTED. Quantity: 1 Refills: 1 Irene Harris MD Start : 30-Jul-2018 Active Start: 07-30-2018 Accu-Chek FastCl ix Lancets use to test blood sugar 6-7 units daily Quantity: 6 Refills: 3 Irene Harris MD Start : 30-Jul-2018 Active 102 Unit Box Start: 07-30-2018 Accu-Chek Guide In Vitro Strip test 6-7 times daily Quantity: 6 Refills: 3 Irene Harris MD Start : 30-Jul-2018 Active 100 Strip [...] USE DIRECTED. Quantity: 1 Refills: 1 Irene Harris MD Start : 30-Jul-2018 Active Start: 07-30-2018 Accu-Chek FastCl ix Lancets use to test blood sugar 6-7 units daily Quantity: 6 Refills: 3 Irene Harris MD Start : 30-Jul-2018 Active 102 Unit Box Start: 07-30-2018 Accu-Chek Guide In Vitro Strip test 6-7 times daily Quantity: 6 Refills: 3 Irene Harris MD Start : 30-Jul-2018 Active 100 Strip [...] USE DIRECTED. Quantity: 1 Refills: 1 Irene Harris MD Start : 30-Jul-2018 Active Start: 07-30-2018 Accu-Chek FastCl ix Lancets use to test blood sugar 6-7 units daily Quantity: 6 Refills: 3 Irene Harris MD Start : 30-Jul-2018 Active 102 Unit Box Start: 07-30-2018 Accu-Chek Guide In Vitro Strip test 6-7 times daily Quantity: 6 Refills: 3 Irene Harris MD Start : 30-Jul-2018 Active 100 Strip [...] USE DIRECTED. Quantity: 1 Refills: 1 Irene Harris MD Start : 30-Jul-2018 Active Start: 07-30-2018 Accu-Chek FastCl ix Lancets use to test blood sugar 6-7 units daily Quantity: 6 Refills: 3 Irene Harris MD Start : 30-Jul-2018 Active 102 Unit Box Start: 07-30-2018 Accu-Chek Guide In Vitro Strip test 6-7 times daily Quantity: 6 Refills: 3 Irene Harris MD Start : 30-Jul-2018 Active 100 Strip [...] Box Start: 07-20-2016 test 6-7 times daily [id number] Star t: 07-30-2018 Use to inject in sulin 4-6 times daily [id number] Start: 09-19-2023 End: 11-29-2023 Inject 1 each un katya the skin 3 times a day before meals. [id number] Start: 11-26-2023 End: 11-25-2024 1 each 3 times a day. [id number] Sta rt: 11-29-2023 End: 11-28-2024 Use as directed three times daily [id number] Start: 11-29-2023 Use to inject in sulin 4-6 times daily [id number] Start: 11-29-2023 Functional Status Date Assessment Result Facility NEGATED: Highlighted row Functional performance Functional status health issues are not documented Disease BB[facility] [address] Work Phone: Mental Status Date Assessment Result Facility NEGATED: Highlighted row Cognitive function [Interpretation] Cognitive status health issues are not documented Disease AI[facility]Sdnauroreu[facility]Kimm[facility] [address] Work Phone: Clinical Notes 10-17-2020 to 11-29-2023 Care Plan - Cristobal Garcia RN - 11/29/2023 5:19 PM EDTCare Plan - Cristobal Garcia RN - 11/29/2023 5:19 PM EDTSignificant Event - Cordell Oliveira RRT - 11/29/2023 2:01 PM EDTAttachments Note Date & Type Note Facility 11-29-2023 Plan of care note Problem: Pain Goal: My pain/discomfort is manageable Outcome: Adequate for Discharge Problem: Safety Goal: Patient will be injury free during hospitalization Outcome: Adequate for Discharge Goal: I will remain free of falls Outcome: Adequate for Discharge Problem: Daily Care Goal: Daily care needs are met Outcome: Adequate for Discharge Problem: Psychosocial Needs Goal: Demonstrates ability to cope with hospitalization/illness Outcome: Adequate for Discharge Goal: Collaborate with me, my family, and caregiver to identify my specific goals Outcome: Adequate for Discharge Problem: Discharge Barriers Goal: My discharge needs are met Outcome: Adequate for Discharge Problem: Respiratory Goal: Clear secretions with interventions this shift Outcome: Adequate for Discharge Goal: Minimize anxiety/maximize coping throughout shift Outcome: Adequate for Discharge Goal: Minimal/no exertional discomfort or dyspnea this shift Outcome: Adequate for Discharge Goal: No signs of respiratory distress (eg. Use of accessory muscles. Peds grunting) Outcome: Adequate for Discharge Goal: Patent airway maintained this shift Outcome: Adequate for Discharge Goal: Tolerate mechanical ventilation evidenced by VS/agitation level this shift Outcome: Adequate for Discharge Goal: Tolerate pulmonary toileting this shift Outcome: Adequate for Discharge Goal: Verbalize decreased shortness of breath this shift Outcome: Adequate for Discharge Goal: Wean oxygen to maintain O2 saturation per order/standard this shift Outcome: Adequate for Discharge Goal: Increase self care and/or family involvement in next 24 hours Outcome: Adequate for Discharge [facility] 11-29-2023 Miscellaneous Notes Problem: Pain Goal: My pain/discomfort is manageable Outcome: Adequate for Discharge Problem: Safety Goal: Patient will be injury free during hospitalization Outcome: Adequate for Discharge Goal: I will remain free of falls Outcome: Adequate for Discharge Problem: Daily Care Goal: Daily care needs are met Outcome: Adequate for Discharge Problem: Psychosocial Needs Goal: Demonstrates ability to cope with hospitalization/illness Outcome: Adequate for Discharge Goal: Collaborate with me, my family, and caregiver to identify my specific goals Outcome: Adequate for Discharge Problem: Discharge Barriers Goal: My discharge needs are met Outcome: Adequate for Discharge Problem: Respiratory Goal: Clear secretions with interventions this shift Outcome: Adequate for Discharge Goal: Minimize anxiety/maximize coping throughout shift Outcome: Adequate for Discharge Goal: Minimal/no exertional discomfort or dyspnea this shift Outcome: Adequate for Discharge Goal: No signs of respiratory distress (eg. Use of accessory muscles. Peds grunting) Outcome: Adequate for Discharge Goal: Patent airway maintained this shift Outcome: Adequate for Discharge Goal: Tolerate mechanical ventilation evidenced by VS/agitation level this shift Outcome: Adequate for Discharge Goal: Tolerate pulmonary toileting this shift Outcome: Adequate for Discharge Goal: Verbalize decreased shortness of breath this shift Outcome: Adequate for Discharge Goal: Wean oxygen to maintain O2 saturation per order/standard this shift Outcome: Adequate for Discharge Goal: Increase self care and/or family involvement in next 24 hours Outcome: Adequate for Discharge RT at BS, patient meds droped off. Patient requesting to do all therapies and meds independently. Problem: Pain Goal: My pain/discomfort is manageable Outcome: Progressing Problem: Safety Goal: Patient will be injury free during hospitalization Outcome: Progressing Goal: I will remain free of falls Outcome: Progressing Problem: Daily Care Goal: Daily care needs are met Outcome: Progressing Problem: Psychosocial Needs Goal: Demonstrates ability to cope with hospitalization/illness Outcome: Progressing Goal: Collaborate with me, my family, and caregiver to identify my specific goals Outcome: Progressing Problem: Discharge Barriers Goal: My discharge needs are met Outcome: Progressing Problem: Respiratory Goal: Clear secretions with interventions this shift Outcome: Progressing Goal: Minimize anxiety/maximize coping throughout shift Outcome: Progressing Goal: Minimal/no exertional discomfort or dyspnea this shift Outcome: Progressing Goal: No signs of respiratory distress (eg. Use of accessory muscles. Peds grunting) Outcome: Progressing Goal: Patent airway maintained this shift Outcome: Progressing Goal: Tolerate mechanical ventilation evidenced by VS/agitation level this shift Outcome: Progressing Goal: Tolerate pulmonary toileting this shift Outcome: Progressing Goal: Verbalize decreased shortness of breath this shift Outcome: Progressing Goal: Wean oxygen to maintain O2 saturation per order/standard this shift Outcome: Progressing Goal: Increase self care and/or family involvement in next 24 hours Outcome: Progressing The patient's goals for the shift include The clinical goals for the shift include safety The patient's goals for the shift include The clinical goals for the shift include Will maintain spO2> 92% Problem: Pain Goal: My pain/discomfort is manageable Outcome: Progressing Problem: Safety Goal: Patient will be injury free during hospitalization Outcome: Progressing Goal: I will remain free of falls Outcome: Progressing Problem: Daily Care Goal: Daily care needs are met Outcome: Progressing Problem: Psychosocial Needs Goal: Demonstrates ability to cope with hospitalization/illness Outcome: Progressing Goal: Collaborate with me, my family, and caregiver to identify my specific goals Outcome: Progressing Problem: Discharge Barriers Goal: My discharge needs are met Outcome: Progressing Problem: Respiratory Goal: Clear secretions with interventions this shift Outcome: Progressing Goal: Minimize anxiety/maximize coping throughout shift Outcome: Progressing Goal: Minimal/no exertional discomfort or dyspnea this shift Outcome: Progressing Goal: No signs of respiratory distress (eg. Use of accessory muscles. Peds grunting) Outcome: Progressing Goal: Patent airway maintained this shift Outcome: Progressing Goal: Tolerate mechanical ventilation evidenced by VS/agitation level this shift Outcome: Progressing Goal: Tolerate pulmonary toileting this shift Outcome: Progressing Goal: Verbalize decreased shortness of breath this shift Outcome: Progressing Goal: Wean oxygen to maintain O2 saturation per order/standard this shift Outcome: Progressing Goal: Increase self care and/or family involvement in next 24 hours Outcome: Progressing Problem: Pain Goal: My pain/discomfort is manageable Outcome: Progressing Problem: Safety Goal: Patient will be injury free during hospitalization Outcome: Progressing Goal: I will remain free of falls Outcome: Progressing Problem: Daily Care Goal: Daily care needs are met Outcome: Progressing Problem: Psychosocial Needs Goal: Demonstrates ability to cope with hospitalization/illness Outcome: Progressing Goal: Collaborate with me, my family, and caregiver to identify my specific goals Outcome: Progressing Problem: Discharge Barriers Goal: My discharge needs are met Outcome: Progressing Problem: Respiratory Goal: Clear secretions with interventions this shift Outcome: Progressing Goal: Minimize anxiety/maximize coping throughout shift Outcome: Progressing Goal: Minimal/no exertional discomfort or dyspnea this shift Outcome: Progressing Goal: No signs of respiratory distress (eg. Use of accessory muscles. Peds grunting) Outcome: Progressing Goal: Patent airway maintained this shift Outcome: Progressing Goal: Tolerate mechanical ventilation evidenced by VS/agitation level this shift Outcome: Progressing Goal: Tolerate pulmonary toileting this shift Outcome: Progressing Goal: Verbalize decreased shortness of breath this shift Outcome: Progressing Goal: Wean oxygen to maintain O2 saturation per order/standard this shift Outcome: Progressing Goal: Increase self care and/or family involvement in next 24 hours Outcome: Progressing The patient's goals for the shift include The clinical goals for the shift include Will maintain spO2> 92% For Detailed H&P, refer to Excellent Dr Mensah's H&P HISTORY OF PRESENT ILLNESS ==== 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 Abscessus), liver cirrhosis, poorly controlled CFRD ( last A1C 10 on 09/2023), last PSA 2017, Poor medication compliance given lack of insurance, off all his medications in the last 1 month and has not been taking Trikafta since May 2023. Presenting as a direct admit for CF exacerbation with a decrease in his FEV1 from 104% (04/2023) to now 66% (11/2023) with associated weight loss ( >50 pounds in 6 months) in the setting of poor p.o. intake, chronic lung disease, lack of insulin therapy. Most recent labs from 2022 did not indicate ABPA however patient endorses worsening cough, sputum production, fatigue and lack of energy all the time, he denies hemoptysis, night sweats, fevers, chest pain, no N/V/D. Patient endorses that due to lack of insurance, he has been sharing insulin with his friend and recently got insulin that was for the father of girlfriend who Upon arrival to the floor, he is awake, alert, coughing often with a dry cough but not in acute distress Data on arrival to the floor VS: Afebrile, HR 91, BP 127/86, RR 20, breathing comfortably on RA Recent workup PFTs: 11/20/23: FEV1 66% (2.93L) 09/18/23: FEV1= 87.8% (5.27L) 04/24/23: JOO0=257% (decreased from 112% last year) Microbiology data -Sputum: MSSA, MRSA, NTM (M. Abscessus),Levar glabrata, levar dubliniensis Imaging CT chest 09/18/23 1. Nonspecific apical predominant peribronchial nodularity with diffuse bronchial wall thickening, bronchiectasis, and scattered tree-in-bud nodularities, findings in keeping with patient's acid-fast bacilli positive sputum cultures. Lingular and right upperlobe consolidation/infiltrates. Given the distribution consider a mycobacterium avium complex versus fortuitum infection/colonization. 2. Mucoid impaction within the posterior right upper lobe bronchi,consistent with patient's known history of cystic fibrosis. 3. Prominent and enlarged mediastinal and hilar lymph nodes, which are likely reactive. 4. Bilateral nonobstructing renal calculi. PSH/PMH: As above MEDICATIONS albuterol 90 mcg/actuation inhalerInhale 2 puffs by mouth every 4 hours if needed for shortness of breath (airway clearnce). albuterol2.5 mg, nebulization, Every 4 hours PRN Baqsimi 3 mg/actuation spray,non-aerosol [place] 3 mg nasally as needed for severe hypoglycemia budesonide-formoteroL (Symbicort) 80-4.5 mcg/actuation inhaler Inhale 2 puffs by mouth 2 times a day. busPIRone (BUSPAR) 5 mg, oral, 2 times daily cholecalciferol (VITAMIN D-3) 5,000 Units, oral, Daily vazcsjhqgoc-vbqtgqjbsi-xivxfhe (Trikafta) 100-50-75 mg tabletTake two (2) orange tablets by mouth every morning and one (1) blue tablet by mouth every evening. Take approximately 12 hours apart with fatty foods. fluticasone (Flonase) 50 mcg/actuation nasal spray 2 sprays, Each Nostril, Daily, Shake gently. Before first use, prime pump. After use, clean tip and replace cap. insulin glargine (Basaglar KwikPen U-100 Insulin) 100 unit/mL (3 mL) pen Inject up to 50 units daily insulin lispro (HumaLOG U-100 Insulin) 100 unit/mL injection Use up to 50 units daily as directed gdrbsm-ytlnvheb-kqsqehp (Zenpep) 25,000-79,000- 105,000 unit capsule Take 4-5 capsules by mouth with meals and 3 capsules by mouth with snacks. Total of 24 capsules per day mirtazapine (REMERON) 15 mg, oral, Nightly sodium chloride 7 % solution for nebulization nebulizer solution Inhale 1 vial via nebulizer twice a day vit A-vit D3-vit E-vit K1 (DEKAs Essential) 600 mcg-50 mcg- 101 mg-1,000mcg capsule capsule 1,000 mcg, oral, Daily ALLERGIES ==== NKDA FAMILY HX ==== Reviewed and NC SOCIAL HX ==== - Living Situation: lives with girl friend - Functional Status: Very functional at baseline - Tobacco: Denies - Alcohol: denies - Drugs: Denies REVIEW OF SYSTEMS: ==== 12 Point ROS otherwise negative PHYSICAL EXAM: ==== General: awake, alert, seated in bed,no acute distress; thin, chronically ill appearing HEENT: anicteric sclerae; conjunctivae not injected; nasal mucosa was unremarkable; oropharynx was clear without evidence of thrush; dentition was good; TM's clear bilaterally, +clear rhinorrhea; ++Temporal wasting Chest: rales that clear with coughing otherwise clear to auscultation bilaterally; + coughing with deep breathing Cardiac: regular rhythm; no gallop or murmur. Abdomen: soft; non-tender; non-distended; no hepatosplenomegaly. Extremities: no leg edema; (+) digital clubbing; 2+ pulses Psychiatric: did not appear depressed or anxious. ASSESSMENT & PLAN ==== 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 Abscessus), liver cirrhosis, poorly controlled CFRD ( last A1C 10 on 09/2023), last PSA 2017, Poor medication compliance given lack of insurance, off all his medications in the last 1 month and has not been taking Trikafta since May 2023. Presenting as a direct admit for CF exacerbation in the setting of decreased FEV1 from 104% (04/2023) to now 66% (11/2023) with associated weight loss ( >50 pounds in 6 months) 2/2 poor p.o. intake, chronic lung disease, poorly controlled CFRD 2/2 lack of insulin therapy. Plan #Cystic Fibrosis without exacerbation (N/[id number];ZFW5=086->88%-> 66% today) ::Last CXR - 09/2021, Lung CT Scan 09/06/23, DEXA Scan - 09/2021 ::PFT completed today - 66% ::Mycobacterium Abscessus Pulmonary disease -reinitiation of Trikafta pending lab work and isnurance processing so he doesn't have it during admission and not when he goes home -c/w Albuterol, Symbicort -resume HTS inpatient - Dornase: defer for now as re-initiating airway clearance - start Airway Clearance: Vest -fu AFB , Fungal, CF Cultures/steffanie - FU repeat Sputum - culture collected on 11/19 - Avoid macrolides inpatient -start Antibiotics: IV Colistin, Ceftazidime, Vancomycin - start Inhaled therapies: Breo inhaler (home symbicort); albuterol; 7% HTS bid; VEST therapy -start Pancreatic Enzymes 3 tabs of ZenPEP with meals and 2 tabs with snacks - get Labs: CMP, GGT, Coags, IgE, CBCdiff, UA, HbA1C, Resp Viral Panel #CFRD ::Most recent HbA1C 10 in 09/28 -Resume Lantus at 25 nightly (home dose 50 BID), will up titrate as per BGs -consult to endocrinology in AM for optimized CFRD treatment # Exocrine Pancreatic insufficiency :: Seen by RD on 11/19 - Continue Enzymes #Cirrhosis :: follows Dr. Briceño outpatient, last seen 11/19 -compensated cirrhosis -Get LFTs F: bolus PRN E: replete PRN N: regular A: PIV DVT ppx: Lovenox GI ppx: Not indicated CODE STATUS: Full Code (confirmed on admission) Surrogate Decision Maker: Sister Alice Damon Problem: Pain Goal: My pain/discomfort is manageable Outcome: Progressing Problem: Safety Goal: Patient will be injury free during hospitalization Outcome: Progressing Goal: I will remain free of falls Outcome: Progressing Problem: Daily Care Goal: Daily care needs are met Outcome: Progressing Problem: Psychosocial Needs Goal: Demonstrates ability to cope with hospitalization/illness Outcome: Progressing Goal: Collaborate with me, my family, and caregiver to identify my specific goals Outcome: Progressing Flowsheets (Taken 11/22/2023 1634) Cultural Requests During Hospitalization: no Spiritual Requests During Hospitalization: none Problem: Discharge Barriers Goal: My discharge needs are met Outcome: Progressing Problem: Respiratory Goal: Clear secretions with interventions this shift Outcome: Progressing Goal: Minimize anxiety/maximize coping throughout shift Outcome: Progressing Goal: Minimal/no exertional discomfort or dyspnea this shift Outcome: Progressing Goal: No signs of respiratory distress (eg. Use of accessory muscles. Peds grunting) Outcome: Progressing Goal: Patent airway maintained this shift Outcome: Progressing Goal: Tolerate mechanical ventilation evidenced by VS/agitation level this shift Outcome: Progressing Goal: Tolerate pulmonary toileting this shift Outcome: Progressing Goal: Verbalize decreased shortness of breath this shift Outcome: Progressing Goal: Wean oxygen to maintain O2 saturation per order/standard this shift Outcome: Progressing Goal: Increase self care and/or family involvement in next 24 hours Outcome: Progressing The patient's goals for the shift include The clinical goals for the shift include Get back home feeling better documented in this encounter [facility] Work Phone: 11-29-2023 History of Present illness Narrative Bravo uHll is a 38 y.o. male on day 7 of admission presenting with Cystic fibrosis (Multi). SW attempted to meet patient bedside. Patient had guests and provider in the room. SW will continue to follow for outpatient CFSW needs. -ARUNA Siddiqui Images from the original note were not included. Stanford Ceja M.D. [facility] Identification: Bravo Hull is a 38 y.o. year old male patient who is hospital day #7. Subjective/Events: Bravo is feeling very close to baseline and his FEV1 yesterday was 98%, baseline 104%. Plan to go home potentially later today or tomorrow. Medication Review No Known Allergies Scheduled medications busPIRone, 5 mg, oral, BID cholecalciferol, 5,000 Units, oral, Daily dornase Alpha, 2.5 mg, nebulization, Daily [Held by provider] vlxtnyyqthr-cmhzhmcrhm-tnceggpng , 2 tablet, oral, q AM enoxaparin, 40 mg, subcutaneous, Daily fluticasone furoate-vilanteroL, 1 puff, inhalation, Daily insulin glargine, 25 Units, subcutaneous, q24h insulin lispro, 0-5 Units, subcutaneous, Before meals & nightly insulin lispro, 11 Units, subcutaneous, TID [Held by provider] ivacaftor, 150 mg, oral, q PM lidocaine, 5 mL, infiltration, Once qxladm-btwdmwoa-tmbccnq, 3 capsule, oral, TID mirtazapine, 15 mg, oral, Nightly multivit with minerals-folic acid-criss K-CoQ, 1 capsule, oral, Daily sodium chloride, 3 mL, nebulization, q12h vancomycin, 1,000 mg, intravenous, q8h Continuous medications PRN medications PRN medications: albuterol, albuterol, alteplase, dextrose, dextrose, glucagon, glucagon, vancomycin Physical Examination Heart Rate: [97] 97 Resp: [17] 17 BP: (124)/(77) 124/77 I/O last 3 completed shifts: In: 240 (3.1 mL/kg) [P.O.:240] Out: - (0 mL/kg) Weight: 76.3 kg I/O this shift: In: 370 [P.O.:120; IV Piggyback:250] Out: - General: Thin male in no acute distress; sitting up in bed HEENT: Sclera clear Chest: Nonlabored; no retractions; fair to good air exchange without crackles or wheezes Cardiac: Regular rate and rhythm Abdomen: + bowel sounds Extremities: No edema; AARON PICC line Psych: Appropriate mood and behavior Metabolic Parameters Results for orders placed or performed during the hospital encounter of 11/22/23 (from the past 24 hour(s)) POCT GLUCOSE Result Value Ref Range POCT Glucose 273 (H) 74 - 99 mg/dL Vancomycin Result Value Ref Range Vancomycin 7.5 5.0 - 20.0 ug/mL Magnesium Result Value Ref Range Magnesium 1.82 1.60 - 2.40 mg/dL CBC and Auto Differential Result Value Ref Range WBC 9.0 4.4 - 11.3 x10*3/uL nRBC 0.0 0.0 - 0.0 /100 WBCs RBC 4.58 4.50 - 5.90 x10*6/uL Hemoglobin 12.8 (L) 13.5 - 17.5 g/dL Hematocrit 40.0 (L) 41.0 - 52.0 % MCV 87 80 - 100 fL MCH 27.9 26.0 - 34.0 pg MCHC 32.0 32.0 - 36.0 g/dL RDW 13.2 11.5 - 14.5 % Platelets 246 150 - 450 x10*3/uL Neutrophils % 63.9 40.0 - 80.0 % Immature Granulocytes %, Automated 0.9 0.0 - 0.9 % Lymphocytes % 23.3 13.0 - 44.0 % Monocytes % 7.1 2.0 - 10.0 % Eosinophils % 4.0 0.0 - 6.0 % Basophils % 0.8 0.0 - 2.0 % Neutrophils Absolute 5.75 1.20 - 7.70 x10*3/uL Immature Granulocytes Absolute, Automated 0.08 0.00 - 0.70 x10*3/uL Lymphocytes Absolute 2.10 1.20 - 4.80 x10*3/uL Monocytes Absolute 0.64 0.10 - 1.00 x10*3/uL Eosinophils Absolute 0.36 0.00 - 0.70 x10*3/uL Basophils Absolute 0.07 0.00 - 0.10 x10*3/uL Hepatic function panel Result Value Ref Range Albumin 3.7 3.4 - 5.0 g/dL Bilirubin, Total 0.3 0.0 - 1.2 mg/dL Bilirubin, Direct 0.1 0.0 - 0.3 mg/dL Alkaline Phosphatase 155 (H) 33 - 120 U/L ALT 131 (H) 10 - 52 U/L AST 128 (H) 9 - 39 U/L Total Protein 6.8 6.4 - 8.2 g/dL Phosphorus Result Value Ref Range Phosphorus 3.8 2.5 - 4.9 mg/dL Basic Metabolic Panel Result Value Ref Range Glucose 220 (H) 74 - 99 mg/dL Sodium 138 136 - 145 mmol/L Potassium 4.3 3.5 - 5.3 mmol/L Chloride 102 98 - 107 mmol/L Bicarbonate 28 21 - 32 mmol/L Anion Gap 12 10 - 20 mmol/L Urea Nitrogen 17 6 - 23 mg/dL Creatinine 0.77 0.50 - 1.30 mg/dL eGFR >90 >60 mL/min/1.73m*2 Calcium 9.2 8.6 - 10.6 mg/dL POCT GLUCOSE Result Value Ref Range POCT Glucose 230 (H) 74 - 99 mg/dL POCT GLUCOSE Result Value Ref Range POCT Glucose 330 (H) 74 - 99 mg/dL Magnesium Result Value Ref Range Magnesium 1.80 1.60 - 2.40 mg/dL CBC and Auto Differential Result Value Ref Range WBC 7.3 4.4 - 11.3 x10*3/uL nRBC 0.0 0.0 - 0.0 /100 WBCs RBC 4.71 4.50 - 5.90 x10*6/uL Hemoglobin 13.4 (L) 13.5 - 17.5 g/dL Hematocrit 41.4 41.0 - 52.0 % MCV 88 80 - 100 fL MCH 28.5 26.0 - 34.0 pg MCHC 32.4 32.0 - 36.0 g/dL RDW 13.1 11.5 - 14.5 % Platelets 197 150 - 450 x10*3/uL Neutrophils % 59.6 40.0 - 80.0 % Immature Granulocytes %, Automated 1.2 (H) 0.0 - 0.9 % Lymphocytes % 26.2 13.0 - 44.0 % Monocytes % 7.8 2.0 - 10.0 % Eosinophils % 4.4 0.0 - 6.0 % Basophils % 0.8 0.0 - 2.0 % Neutrophils Absolute 4.34 1.20 - 7.70 x10*3/uL Immature Granulocytes Absolute, Automated 0.09 0.00 - 0.70 x10*3/uL Lymphocytes Absolute 1.91 1.20 - 4.80 x10*3/uL Monocytes Absolute 0.57 0.10 - 1.00 x10*3/uL Eosinophils Absolute 0.32 0.00 - 0.70 x10*3/uL Basophils Absolute 0.06 0.00 - 0.10 x10*3/uL Hepatic function panel Result Value Ref Range Albumin 3.6 3.4 - 5.0 g/dL Bilirubin, Total 0.4 0.0 - 1.2 mg/dL Bilirubin, Direct 0.0 0.0 - 0.3 mg/dL Alkaline Phosphatase 146 (H) 33 - 120 U/L ALT 147 (H) 10 - 52 U/L AST 110 (H) 9 - 39 U/L Total Protein 6.8 6.4 - 8.2 g/dL Phosphorus Result Value Ref Range Phosphorus 3.5 2.5 - 4.9 mg/dL Basic Metabolic Panel Result Value Ref Range Glucose 333 (H) 74 - 99 mg/dL Sodium 135 (L) 136 - 145 mmol/L Potassium 4.4 3.5 - 5.3 mmol/L Chloride 101 98 - 107 mmol/L Bicarbonate 27 21 - 32 mmol/L Anion Gap 11 10 - 20 mmol/L Urea Nitrogen 13 6 - 23 mg/dL Creatinine 0.62 0.50 - 1.30 mg/dL eGFR >90 >60 mL/min/1.73m*2 Calcium 8.9 8.6 - 10.6 mg/dL Lipid panel Result Value Ref Range Cholesterol 119 0 - 199 mg/dL HDL-Cholesterol 38.5 mg/dL Cholesterol/HDL Ratio 3.1 LDL Calculated 60 <=99 mg/dL VLDL 21 0 - 40 mg/dL Triglycerides 105 0 - 149 mg/dL Non HDL Cholesterol 81 0 - 149 mg/dL Hepatitis panel, acute Result Value Ref Range Hepatitis B Surface AG Nonreactive Nonreactive Hepatitis A AB- IgM Nonreactive Nonreactive Hepatitis B Core AB; IgM Nonreactive Nonreactive Hepatitis C AB Nonreactive Nonreactive POCT GLUCOSE Result Value Ref Range POCT Glucose 217 (H) 74 - 99 mg/dL POCT GLUCOSE Result Value Ref Range POCT Glucose 89 74 - 99 mg/dL CF Sputum Culture AFB Culture Date Value Ref Range Status 11/20/2023 Isolated: Mycobacterium abscessus (A) Preliminary Comment: For antibiotic susceptibility results see Specimen # - [id number] 09/18/2023 10/01/2023 Mycobacterium abscessus (A) Final Comment: For antibiotic susceptibility results see Specimen # - [id number] 09/18/2023 10/01/2023 Mycobacterium abscessus (A) Final Comment: For antibiotic susceptibility results see Specimen # - [id number] 09/18/2023 09/18/2023 Isolated: Mycobacterium abscessus (A) Final 09/18/2023 Isolated: Mycobacterium abscessus (A) Corrected Comment: This is an appended report. These results have been appended to a previously final verified report. Respiratory Culture, Cystic Fibrosis Date/Time Value Ref Range Status 11/22/2023 09:19 PM (2+) Few Normal throat mariza Final 11/22/2023 09:19 PM (A) Final (2+) Few Methicillin Resistant Staphylococcus aureus (MRSA) Comment: Methicillin (Oxacillin) resistant Staphylococci are resistant to all currently available Penicillins, Beta-lactam/Beta-lactamase inhibitor combinations (including Ampicillin/Sulbactam, Amoxicillin/Clavulanate and Pipercillin/Tazobactam), Carbapenems and Cephalosporins (except Ceftaroline). 11/20/2023 01:37 PM (3+) Moderate Normal throat mariza Final 11/20/2023 01:37 PM (A) Final (2+) Few Methicillin Resistant Staphylococcus aureus (MRSA) Comment: Methicillin (Oxacillin) resistant Staphylococci are resistant to all currently available Penicillins, Beta-lactam/Beta-lactamase inhibitor combinations (including Ampicillin/Sulbactam, Amoxicillin/Clavulanate and Pipercillin/Tazobactam), Carbapenems and Cephalosporins (except Ceftaroline). 10/01/2023 01:45 PM (A) Final (1+) Rare Methicillin Resistant Staphylococcus aureus (MRSA) Comment: Methicillin (Oxacillin) resistant Staphylococci are resistant to all currently available Penicillins, Beta-lactam/Beta-lactamase inhibitor combinations (including Ampicillin/Sulbactam, Amoxicillin/Clavulanate and Pipercillin/Tazobactam), Carbapenems and Cephalosporins (except Ceftaroline). 10/01/2023 01:45 PM (1+) Rare Normal throat mariza Final Susceptibility data from last 90 days. Collected Specimen Info Organism Amikacin Cefoxitin Ciprofloxacin Clarithromycin Clindamycin Clofazimine Doxycycline Ertapenem 11/22/23 Fluid from SPUTUM Methicillin Resistant Staphylococcus aureus (MRSA) S Normal throat mariza 11/20/23 Fluid from SPUTUM Levar glabrata Levar dubliniensis 11/20/23 Fluid from SPUTUM Mycobacterium abscessus 11/20/23 Fluid from SPUTUM Methicillin Resistant Staphylococcus aureus (MRSA) S Normal throat mariza 10/01/23 Fluid from TRACHEAL WASH Mycobacterium abscessus 10/01/23 Fluid from TRACHEAL WASH Methicillin Resistant Staphylococcus aureus (MRSA) S 10/01/23 Fluid from BAL Methicillin Resistant Staphylococcus aureus (MRSA) S Normal throat mariza 10/01/23 Fluid from BAL Mycobacterium abscessus 09/18/23 Fluid from SPUTUM Methicillin Resistant Staphylococcus aureus (MRSA) S Normal throat mariza 09/18/23 Fluid from SPUTUM Levar albicans 09/18/23 Fluid from SPUTUM Mycobacterium abscessus (2) S I R S No interpret R No interpret Mycobacterium abscessus (1) S I R S No interpret R No interpret Collected Specimen Info Organism Erythromycin Imipenem Linezolid Meropenem Moxifloxacin Oxacillin Tetracycline Tigecycline 11/22/23 Fluid from SPUTUM Methicillin Resistant Staphylococcus aureus (MRSA) R R S Normal throat mariza 11/20/23 Fluid from SPUTUM Levar glabrata Levar dubliniensis 11/20/23 Fluid from SPUTUM Mycobacterium abscessus 11/20/23 Fluid from SPUTUM Methicillin Resistant Staphylococcus aureus (MRSA) R R S Normal throat mariza 10/01/23 Fluid from TRACHEAL WASH Mycobacterium abscessus 10/01/23 Fluid from TRACHEAL WASH Methicillin Resistant Staphylococcus aureus (MRSA) R R S 10/01/23 Fluid from BAL Methicillin Resistant Staphylococcus aureus (MRSA) R R S Normal throat mariza 10/01/23 Fluid from BAL Mycobacterium abscessus 09/18/23 Fluid from SPUTUM Methicillin Resistant Staphylococcus aureus (MRSA) R R S Normal throat mariza 09/18/23 Fluid from SPUTUM Levar albicans 09/18/23 Fluid from SPUTUM Mycobacterium abscessus (2) S I R R No interpret Mycobacterium abscessus (1) S S No interpret I No interpret Collected Specimen Info Organism Trimethoprim/Sulfamethoxazole Vancomycin 11/22/23 Fluid from SPUTUM Methicillin Resistant Staphylococcus aureus (MRSA) S S Normal throat mariza 11/20/23 Fluid from SPUTUM Levar glabrata Levar dubliniensis 11/20/23 Fluid from SPUTUM Mycobacterium abscessus 11/20/23 Fluid from SPUTUM Methicillin Resistant Staphylococcus aureus (MRSA) S S Normal throat mariza 10/01/23 Fluid from TRACHEAL WASH Mycobacterium abscessus 10/01/23 Fluid from TRACHEAL WASH Methicillin Resistant Staphylococcus aureus (MRSA) S S 10/01/23 Fluid from BAL Methicillin Resistant Staphylococcus aureus (MRSA) S S Normal throat mariza 10/01/23 Fluid from BAL Mycobacterium abscessus 09/18/23 Fluid from SPUTUM Methicillin Resistant Staphylococcus aureus (MRSA) S S Normal throat mariza 09/18/23 Fluid from SPUTUM Levar albicans 09/18/23 Fluid from SPUTUM Mycobacterium abscessus (2) R Mycobacterium abscessus (1) R Assessment and Plan / Recommendations Bravo is a 38 y/o male with a history of cystic fibrosis who is admitted for a CF pulmonary exacerbation. Bravo has been treated with x7 days of IV antibiotics and subjectively and objectively is very close to baseline. I think that his nonadherence at home and running out of medication (specifically Trikafta) contributed. We discussed using his albuterol, taking Trikafta, taking enzymes and managing diabetes as a good place to start. At his follow up we will further discuss compliance and again what an aggressive NTM regimen would look like. He needs to show us that he can adhere to this treatment. Prior to his clinic visit, he will have a noncontrast CT scan of chest. He will have follow up in endo and CF clinics in x2-3 weeks. He did have elevations in his transaminases which seems related to ceftazidime and expect those to come down with the medication stopping. He will be given a rec to obtain LFTs outpatient. # Cystic Fibrosis with severe exacerbation - Baseline FEV1 104% down to 66% upon admission; 11/27 FEV1 98% - Most recent culture grew MRSA - Has grown burkholderia and pseudomonas in the past - IV antibiotics: Ceftazidime 2 g IV q8, Vanco per pharmacy dosing - Trikafta has been held since 11/24 due to him receiving double the dose on multiple days. On Saturday though he has charted that he had x2 doses of 2 orange tablets but that day he realized that the dose didn't seem right. 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 He would like to gain weight back. - Please order Ensure Plus (vanilla or chocolate) so he can get it to replace a meal # Cirrhosis # Transaminitis - Elevation in ALT and AST may be related to double the dosage of Trikafta - Liver US 11/26 consistent with cirrhosis # Tobacco cessation - Will need to re-address # SVT - Has had episodes of SVT - Consider cardiology consult if occurs while hospitalized SADIA Crespo 11/29/2023 2:08 PM Patient discussed with the [facility] team today. Thank you for the consult. The CF team will sign off. Bravo Hull is a 38 y.o. male on day 7 of admission presenting with Cystic fibrosis (Multi). Subjective Patient seen this morning resting comfortably. Denies any new symptoms including f/c, worsening cough or sputum production. Having normal Bms. Has no complaints. Is ok with going home today. Objective Last Recorded Vitals Blood pressure 124/77, pulse 97, temperature 37 C (98.6 F), temperature source Temporal, resp. rate 17, height 1.829 m (6'), weight 76.3 kg (168 lb 3.2 oz), SpO2 99%. Intake/Output last 3 Shifts: I/O last 3 completed shifts: In: 240 (3.1 mL/kg) [P.O.:240] Out: - (0 mL/kg) Weight: 76.3 kg Physical Exam GEN: A&Ox3, no acute distress, appears comfortable. CARDIO: Normal rate and regular rhythm. No murmurs, rubs, or gallops. PULM: LCTAB, no accessory muscle use NEURO: Cranial nerves II-XII grossly intact. PSYCH: Appropriate mood and behavior, converses and responds appropriately during exam Relevant Results Labs Results from last 7 days Lab Units 11/29/23 0539 11/28/23 1659 11/27/23 0845 WBC AUTO x10*3/uL 7.3 9.0 7.5 HEMOGLOBIN g/dL 13.4* 12.8* 13.8 HEMATOCRIT % 41.4 40.0* 41.9 PLATELETS AUTO x10*3/uL 197 246 230 Results from last 7 days Lab Units 11/29/23 0539 11/28/23 1659 11/27/23 0845 SODIUM mmol/L 135* 138 137 POTASSIUM mmol/L 4.4 4.3 4.1 CHLORIDE mmol/L 101 102 105 CO2 mmol/L 27 28 27 BUN mg/dL 13 17 13 CREATININE mg/dL 0.62 0.77 0.61 CALCIUM mg/dL 8.9 9.2 9.0 Results from last 7 days Lab Units 11/29/23 0539 11/28/23 1659 11/27/23 0845 ALK PHOS U/L 146* 155* 135* BILIRUBIN TOTAL mg/dL 0.4 0.3 0.4 BILIRUBIN DIRECT mg/dL 0.0 0.1 0.0 PROTEIN TOTAL g/dL 6.8 6.8 6.8 ALT U/L 147* 131* 66* AST U/L 110* 128* 64* Results from last 7 days Lab Units 11/22/23 1848 APTT seconds 30 INR 1.1 Medications Scheduled medications busPIRone, 5 mg, oral, BID cholecalciferol, 5,000 Units, oral, Daily dornase Alpha, 2.5 mg, nebulization, Daily [Held by provider] iayelalsigd-kowgxoolfl-diridfmyr , 2 tablet, oral, q AM enoxaparin, 40 mg, subcutaneous, Daily fluticasone furoate-vilanteroL, 1 puff, inhalation, Daily insulin glargine, 25 Units, subcutaneous, q24h insulin lispro, 0-5 Units, subcutaneous, Before meals & nightly insulin lispro, 11 Units, subcutaneous, TID [Held by provider] ivacaftor, 150 mg, oral, q PM lidocaine, 5 mL, infiltration, Once ykkvdf-owjspiuf-gzcshkw, 3 capsule, oral, TID mirtazapine, 15 mg, oral, Nightly multivit with minerals-folic acid-criss K-CoQ, 1 capsule, oral, Daily sodium chloride, 3 mL, nebulization, q12h vancomycin, 1,000 mg, intravenous, q8h Continuous medications PRN medications PRN medications: albuterol, albuterol, alteplase, dextrose, dextrose, glucagon, glucagon, vancomycin Imaging Bedside PICC Imaging Final Result US liver with doppler Final Result 1. Heterogenous coarse echotexture of the liver concerning for chronic liver disease/cirrhosis. Patent hepatic vasculature. 2. Findings concerning for portal hypertension, including splenomegaly, trace perisplenic fluid and slow flow within the portal venous system. I personally reviewed the images/study and I agree with the findings as stated by resident physician Dr. John Rodriguez . This study was interpreted at [facility], [place], [place]. MACRO: None Signed by: Edmond Cutler 11/27/2023 9:29 PM Dictation workstation: [id number] CT chest wo IV contrast (Results Pending) Assessment/Plan Principal Problem: Cystic fibrosis (Multi) 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 Patient has not been taking any medications for the last 1 month and has not been taking Trikafta since May 2023. He also is currently in a CF exacerbation with a decrease in his FEV1 from 104% (04/2023) to now 66% (11/2023) with decreased weight in the setting of poor p.o. intake, chronic lung disease, lack of insulin therapy. Most recent labs from 2022 did not indicate ABPA though IgE and CBC with differential should be repeated in the patient. Dr. Waters discussed at length the concern with this significant decrease in his FEV1 over the last 7 months and the need to focus on his treatment therapy aggressively in order to gain recovery. He is agreeable to inpatient admission for CF exacerbation, diabetes management. Hospital course cb elevated LFTs for which Trikafta was held. FEV1 improved and is stable for discharge. Updates 11/28: -FEV1 98% yesterday, stable for discharge from CF perspective -LFTs continue to uptrend, held ceftazidine per CF recs which may be worsening LFTs -Plan to monitor LFTs outpatient and restart Trikafta at that time -Plan for outpatient CT to evaluate for NTM radiographic disease -pending endo home going insulin recs #Cystic Fibrosis exacerbation (N/dF508;TTR5=717->88%-> 66% ) ::Previously BAL cultures grew MRSA, M. Abscessus 09/28 - Modulator: START Trikafta - holding due to elevated LFTs - Bronchodilators: Albuterol PRN, breo - HTS: 7% BID - Dornase: ordered - Inhaled ABX: none - Airway Clearance: Vest TID - Antibiotics: -IV ceftazidime 2g q8hrs - stopped 11/28 due to elevated LFTs -IV vanc pharmacy to dose -Avoid macrolides given NTM -Fu respiratory cultures obtained in clinic, currently growing MRSA and levar #hx of SVT s/p adenosine -monitor for symptoms -Should follow up with EP outpatient for consideration of ablation #CFRD ::Patient reports being on 25u lantus BID and 8u humalog with meals +SSI at home -A1c 9.7 on admission -Consult endocrine, appreciate recs -Continue lantus 25U at night 11u lispro TID with meals, up titrate as needed pending endo recs -SSI #1 #Exocrine Pancreatic insufficiency -continue zenPEP with meals #Cirrhosis #transaminitis - Follows with Dr. Briceño with GI - LFTs normal on admission, well compensated on exam - LFT increase could be 2/2 trikafta, holding trifakta and trending LFTs - RUQ consistent with cirrhosis F: PRN E: PRN N: Regular Diet A: pIV DVT ppx: Lovenox GI ppx: Not indicated CODE STATUS: Full Code (confirmed on admission) Surrogate Decision Maker: Sister Alice Damon Case seen and discussed with attending Dr. Ambrosio, to addend as necessary. Marquise Mensah MD ====== I saw and evaluated the patient. I personally obtained the bunn and critical portions of the history and physical exam or was physically present for bunn and critical portions performed by the resident/fellow. I reviewed the resident/fellow's documentation and discussed the patient with the resident/fellow. I agree with the resident/fellow's medical decision making as documented in the note. Braxton Ambrosio MD Vancomycin Dosing by Pharmacy- FOLLOW UP Bravo Hull is a 38 y.o. year old male who Pharmacy has been consulted for vancomycin dosing for pneumonia. Based on the patient's indication and renal status this patient is being dosed based on a goal AUC of 400-600. Renal function is currently stable. Current vancomycin dose: 1000 mg given every 8 hours Estimated vancomycin AUC on current dose: 421 mg/L.hr Visit Vitals BP 131/87 Pulse 90 Temp 37 C (98.6 F) (Temporal) Resp 19 Lab Results Component Value Date CREATININE 0.77 11/28/2023 CREATININE 0.61 11/27/2023 CREATININE 0.65 11/26/2023 CREATININE 0.68 11/25/2023 Patient weight is as follows: Vitals: 11/26/23 1300 Weight: 76.3 kg (168 lb 3.2 oz) Cultures: Susceptibility data for the encounter in last 14 days. Collected Specimen Info Organism Clindamycin Erythromycin Oxacillin Tetracycline Trimethoprim/Sulfamethoxazole Vancomycin 11/22/23 Fluid from SPUTUM Methicillin Resistant Staphylococcus aureus (MRSA) S R R S S S Normal throat mariza I/O last 3 completed shifts: In: 540 (7.1 mL/kg) [P.O.:240; IV Piggyback:300] Out: - (0 mL/kg) Weight: 76.3 kg I/O during current shift: I/O this shift: In: 240 [P.O.:240] Out: - No data recorded. Assessment/Plan Within goal AUC range. Continue current vancomycin regimen. This dosing regimen is predicted by [employer] to result in the following pharmacokinetic parameters: Regimen: 1000 mg IV every 8 hours. Start time: 14:08 on 11/28/2023 Exposure target: AUC24 (range)400-600 mg/L.hr AUC24,ss: 421 mg/L.hr Probability of AUC24 > 400: 64 % Ctrough,ss: 10.7 mg/L Probability of Ctrough,ss > 20: 0 % Probability of nephrotoxicity (Lodise MALVIN 2008): 6 % The next level will be obtained on 11/30 at am Lab draw. May be obtained sooner if clinically indicated. Will continue to monitor renal function daily while on vancomycin and order serum creatinine at least every 48 hours if not already ordered. Follow for continued vancomycin needs, clinical response, and signs/symptoms of toxicity. Pasquale Martinez PharmD Images from the original note were not included. Stanford Ceja M.D. [facility] Identification: Bravo Hull is a 38 y.o. year old male patient who is hospital day #6. Subjective/Events: He is feeling better each day. His sputum production and cough have decreased. He is using his vest for airway clearance. Had a large appetite yesterday. Doesn't like Ensure Clear. Prefers the milkshake kind. Would like to gain some weight. His bowels are moving. Medication Review No Known Allergies Scheduled medications busPIRone, 5 mg, oral, BID cefTAZidime, 2 g, intravenous, q8h cholecalciferol, 5,000 Units, oral, Daily dornase Alpha, 2.5 mg, nebulization, Daily [Held by provider] wexzrwqrlsq-mcswuqytco-hqhnitfcc , 2 tablet, oral, q AM enoxaparin, 40 mg, subcutaneous, Daily fluticasone furoate-vilanteroL, 1 puff, inhalation, Daily insulin glargine, 25 Units, subcutaneous, q24h insulin lispro, 0-5 Units, subcutaneous, Before meals & nightly insulin lispro, 11 Units, subcutaneous, TID [Held by provider] ivacaftor, 150 mg, oral, q PM lidocaine, 5 mL, infiltration, Once rfgkcx-npexohof-htkuctg, 3 capsule, oral, TID mirtazapine, 15 mg, oral, Nightly multivit with minerals-folic acid-criss K-CoQ, 1 capsule, oral, Daily sodium chloride, 3 mL, nebulization, q12h vancomycin, 1,000 mg, intravenous, q8h Continuous medications PRN medications PRN medications: albuterol, albuterol, alteplase, dextrose, dextrose, glucagon, glucagon, vancomycin Physical Examination Heart Rate: [90] 90 Resp: [19] 19 BP: (131)/(87) 131/87 I/O last 3 completed shifts: In: 540 (7.1 mL/kg) [P.O.:240; IV Piggyback:300] Out: - (0 mL/kg) Weight: 76.3 kg No intake/output data recorded. General: Thin male in no acute distress; sitting up in bed HEENT: Sclera clear Chest: Nonlabored; no retractions; fair to good air exchange without crackles or wheezes Cardiac: Regular rate and rhythm Abdomen: + bowel sounds Extremities: No edema; AARON PICC line Psych: Appropriate mood and behavior Metabolic Parameters Results for orders placed or performed during the hospital encounter of 11/22/23 (from the past 24 hour(s)) POCT GLUCOSE Result Value Ref Range POCT Glucose 564 (H) 74 - 99 mg/dL POCT GLUCOSE Result Value Ref Range POCT Glucose 485 (H) 74 - 99 mg/dL POCT GLUCOSE Result Value Ref Range POCT Glucose 326 (H) 74 - 99 mg/dL POCT GLUCOSE Result Value Ref Range POCT Glucose 230 (H) 74 - 99 mg/dL POCT GLUCOSE Result Value Ref Range POCT Glucose 198 (H) 74 - 99 mg/dL POCT GLUCOSE Result Value Ref Range POCT Glucose 273 (H) 74 - 99 mg/dL CF Sputum Culture AFB Culture Date Value Ref Range Status 11/20/2023 Isolated: Acid Fast Bacilli (A) Preliminary 10/01/2023 Mycobacterium abscessus (A) Final Comment: For antibiotic susceptibility results see Specimen # - [id number] 09/18/2023 10/01/2023 Mycobacterium abscessus (A) Final Comment: For antibiotic susceptibility results see Specimen # - [id number] 09/18/2023 09/18/2023 Isolated: Mycobacterium abscessus (A) Final 09/18/2023 Isolated: Mycobacterium abscessus (A) Corrected Comment: This is an appended report. These results have been appended to a previously final verified report. Respiratory Culture, Cystic Fibrosis Date/Time Value Ref Range Status 11/22/2023 09:19 PM (2+) Few Normal throat mariza Final 11/22/2023 09:19 PM (A) Final (2+) Few Methicillin Resistant Staphylococcus aureus (MRSA) Comment: Methicillin (Oxacillin) resistant Staphylococci are resistant to all currently available Penicillins, Beta-lactam/Beta-lactamase inhibitor combinations (including Ampicillin/Sulbactam, Amoxicillin/Clavulanate and Pipercillin/Tazobactam), Carbapenems and Cephalosporins (except Ceftaroline). 11/20/2023 01:37 PM (3+) Moderate Normal throat mariza Final 11/20/2023 01:37 PM (A) Final (2+) Few Methicillin Resistant Staphylococcus aureus (MRSA) Comment: Methicillin (Oxacillin) resistant Staphylococci are resistant to all currently available Penicillins, Beta-lactam/Beta-lactamase inhibitor combinations (including Ampicillin/Sulbactam, Amoxicillin/Clavulanate and Pipercillin/Tazobactam), Carbapenems and Cephalosporins (except Ceftaroline). 10/01/2023 01:45 PM (A) Final (1+) Rare Methicillin Resistant Staphylococcus aureus (MRSA) Comment: Methicillin (Oxacillin) resistant Staphylococci are resistant to all currently available Penicillins, Beta-lactam/Beta-lactamase inhibitor combinations (including Ampicillin/Sulbactam, Amoxicillin/Clavulanate and Pipercillin/Tazobactam), Carbapenems and Cephalosporins (except Ceftaroline). 10/01/2023 01:45 PM (1+) Rare Normal throat mariza Final Susceptibility data from last 90 days. Collected Specimen Info Organism Amikacin Cefoxitin Ciprofloxacin Clarithromycin Clindamycin Clofazimine Doxycycline Ertapenem 11/22/23 Fluid from SPUTUM Methicillin Resistant Staphylococcus aureus (MRSA) S Normal throat mariza 11/20/23 Fluid from SPUTUM Levar glabrata Levar dubliniensis 11/20/23 Fluid from SPUTUM Acid Fast Bacilli 11/20/23 Fluid from SPUTUM Methicillin Resistant Staphylococcus aureus (MRSA) S Normal throat mariza 10/01/23 Fluid from TRACHEAL WASH Mycobacterium abscessus 10/01/23 Fluid from TRACHEAL WASH Methicillin Resistant Staphylococcus aureus (MRSA) S 10/01/23 Fluid from BAL Methicillin Resistant Staphylococcus aureus (MRSA) S Normal throat mariza 10/01/23 Fluid from BAL Mycobacterium abscessus 09/18/23 Fluid from SPUTUM Methicillin Resistant Staphylococcus aureus (MRSA) S Normal throat mariza 09/18/23 Fluid from SPUTUM Levar albicans 09/18/23 Fluid from SPUTUM Mycobacterium abscessus (2) S I R S No interpret R No interpret Mycobacterium abscessus (1) S I R S No interpret R No interpret Collected Specimen Info Organism Erythromycin Imipenem Linezolid Meropenem Moxifloxacin Oxacillin Tetracycline Tigecycline 11/22/23 Fluid from SPUTUM Methicillin Resistant Staphylococcus aureus (MRSA) R R S Normal throat mariza 11/20/23 Fluid from SPUTUM Levar glabrata Levar dubliniensis 11/20/23 Fluid from SPUTUM Acid Fast Bacilli 11/20/23 Fluid from SPUTUM Methicillin Resistant Staphylococcus aureus (MRSA) R R S Normal throat mariza 10/01/23 Fluid from TRACHEAL WASH Mycobacterium abscessus 10/01/23 Fluid from TRACHEAL WASH Methicillin Resistant Staphylococcus aureus (MRSA) R R S 10/01/23 Fluid from BAL Methicillin Resistant Staphylococcus aureus (MRSA) R R S Normal throat mariza 10/01/23 Fluid from BAL Mycobacterium abscessus 09/18/23 Fluid from SPUTUM Methicillin Resistant Staphylococcus aureus (MRSA) R R S Normal throat mariza 09/18/23 Fluid from SPUTUM Levar albicans 09/18/23 Fluid from SPUTUM Mycobacterium abscessus (2) S I R R No interpret Mycobacterium abscessus (1) S S No interpret I No interpret Collected Specimen Info Organism Trimethoprim/Sulfamethoxazole Vancomycin 11/22/23 Fluid from SPUTUM Methicillin Resistant Staphylococcus aureus (MRSA) S S Normal throat mariza 11/20/23 Fluid from SPUTUM Levar glabrata Levar dubliniensis 11/20/23 Fluid from SPUTUM Acid Fast Bacilli 11/20/23 Fluid from SPUTUM Methicillin Resistant Staphylococcus aureus (MRSA) S S Normal throat mariza 10/01/23 Fluid from TRACHEAL WASH Mycobacterium abscessus 10/01/23 Fluid from TRACHEAL WASH Methicillin Resistant Staphylococcus aureus (MRSA) S S 10/01/23 Fluid from BAL Methicillin Resistant Staphylococcus aureus (MRSA) S S Normal throat mariza 10/01/23 Fluid from BAL Mycobacterium abscessus 09/18/23 Fluid from SPUTUM Methicillin Resistant Staphylococcus aureus (MRSA) S S Normal throat mariza 09/18/23 Fluid from SPUTUM Levar albicans 09/18/23 Fluid from SPUTUM Mycobacterium abscessus (2) R Mycobacterium abscessus (1) R Assessment and Plan / Recommendations Bravo is a 38 y/o male with a history of cystic fibrosis who is admitted for a CF pulmonary exacerbation. # Cystic Fibrosis with severe exacerbation - Baseline FEV1 104% down to 66% upon admission; recommend spirometry on 11/27 or 11/28 - Most recent culture grew MRSA - Has grown burkholderia and pseudomonas in the past - IV antibiotics: Ceftazidime 2 g IV q8, Vanco per pharmacy dosing - Trikafta has been held since 11/24 due to him receiving double the dose on multiple days. On Saturday though he has charted that he had x2 doses of 2 orange tablets but that day he realized that the dose didn't seem right. His LFTs have been mildly elevated which is why the Trikafta was held but the ceftazidime could be contributing as well. Pending LFTs today but if stable then please restart Trikafta tomorrow morning at the full dose: 2 orange tablets (Elexacaftor/tezacaftor/ivacafto r) in the morning and 1 blue (ivacaftor) at night. 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 He would like to gain weight back. - Please order Ensure Plus (vanilla or chocolate) so he can get it to replace a meal # Cirrhosis # Transaminitis - Elevation in ALT and AST may be related to double the dosage of Trikafta - Liver US 11/26 consistent with cirrhosis # Tobacco cessation - Will need to re-address # SVT - Has had episodes of SVT - Consider cardiology consult if occurs while hospitalized Kapil Covarrubias APRN-[facility] 11/28/2023 5:07 PM Patient discussed with the [facility] team today. Thank you for the consult. The CF team will continue to follow closely. From 8 AM to 5 PM on Saturday through Saturday, please contact Kapil Covarrubias CNP for any CF needs. From 5 PM to 8 AM on Saturday-Saturday, please contact Madi Deras MD for any CF needs. Bravo Hull is a 38 y.o. male on day 6 of admission presenting with Cystic fibrosis (Multi). Subjective Patient seen this morning resting comfortably. Denies any new symptoms including f/c, worsening cough or sputum production. Having normal Bms. Has no complaints. Objective Last Recorded Vitals Blood pressure 131/87, pulse 90, temperature 37 C (98.6 F), temperature source Temporal, resp. rate 19, height 1.829 m (6'), weight 76.3 kg (168 lb 3.2 oz), SpO2 98%. Intake/Output last 3 Shifts: I/O last 3 completed shifts: In: 540 (7.1 mL/kg) [P.O.:240; IV Piggyback:300] Out: - (0 mL/kg) Weight: 76.3 kg Physical Exam GEN: A&Ox3, no acute distress, appears comfortable. CARDIO: Normal rate and regular rhythm. No murmurs, rubs, or gallops. PULM: LCTAB, no accessory muscle use NEURO: Cranial nerves II-XII grossly intact. PSYCH: Appropriate mood and behavior, converses and responds appropriately during exam Relevant Results Labs Results from last 7 days Lab Units 11/27/23 0845 11/25/23 0817 11/22/23 1848 WBC AUTO x10*3/uL 7.5 7.7 10.8 HEMOGLOBIN g/dL 13.8 14.6 15.2 HEMATOCRIT % 41.9 45.5 48.6 PLATELETS AUTO x10*3/uL 230 259 261 Results from last 7 days Lab Units 11/27/23 0845 11/26/23 0637 11/25/23 0817 SODIUM mmol/L 137 134* 136 POTASSIUM mmol/L 4.1 4.2 4.1 CHLORIDE mmol/L 105 103 104 CO2 mmol/L 27 23 23 BUN mg/dL 13 15 14 CREATININE mg/dL 0.61 0.65 0.68 CALCIUM mg/dL 9.0 9.0 9.3 Results from last 7 days Lab Units 11/27/23 0845 11/26/23 0637 11/25/23 0817 11/24/23 0450 11/22/23 1848 ALK PHOS U/L 135* 132* 141* < > 136* BILIRUBIN TOTAL mg/dL 0.4 0.4 0.4 < > 0.6 BILIRUBIN DIRECT mg/dL 0.0 -- -- -- 0.1 PROTEIN TOTAL g/dL 6.8 6.9 7.5 < > 7.2 ALT U/L 66* 55* 57* < > 23 AST U/L 64* 52* 64* < > 20 < > = values in this interval not displayed. Results from last 7 days Lab Units 11/22/23 1848 APTT seconds 30 INR 1.1 Medications Scheduled medications busPIRone, 5 mg, oral, BID cefTAZidime, 2 g, intravenous, q8h cholecalciferol, 5,000 Units, oral, Daily dornase Alpha, 2.5 mg, nebulization, Daily [Held by provider] yygocxobsui-bvwimihgfr-csjxlzdni , 2 tablet, oral, q AM enoxaparin, 40 mg, subcutaneous, Daily fluticasone furoate-vilanteroL, 1 puff, inhalation, Daily insulin glargine, 25 Units, subcutaneous, q24h insulin lispro, 0-5 Units, subcutaneous, Before meals & nightly insulin lispro, 11 Units, subcutaneous, TID [Held by provider] ivacaftor, 150 mg, oral, q PM lidocaine, 5 mL, infiltration, Once zfvhew-yezjvlhe-xexmven, 3 capsule, oral, TID mirtazapine, 15 mg, oral, Nightly multivit with minerals-folic acid-criss K-CoQ, 1 capsule, oral, Daily sodium chloride, 3 mL, nebulization, q12h vancomycin, 1,000 mg, intravenous, q8h Continuous medications PRN medications PRN medications: albuterol, albuterol, alteplase, dextrose, dextrose, glucagon, glucagon, vancomycin Imaging Bedside PICC Imaging Final Result US liver with doppler Final Result 1. Heterogenous coarse echotexture of the liver concerning for chronic liver disease/cirrhosis. Patent hepatic vasculature. 2. Findings concerning for portal hypertension, including splenomegaly, trace perisplenic fluid and slow flow within the portal venous system. I personally reviewed the images/study and I agree with the findings as stated by resident physician Dr. John Rodriguez . This study was interpreted at [facility], [place], [place]. MACRO: None Signed by: Edmond Cutler 11/27/2023 9:29 PM Dictation workstation: [id number] Assessment/Plan Principal Problem: Cystic fibrosis (Multi) 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 Patient has not been taking any medications for the last 1 month and has not been taking Trikafta since May 2023. He also is currently in a CF exacerbation with a decrease in his FEV1 from 104% (04/2023) to now 66% (11/2023) with decreased weight in the setting of poor p.o. intake, chronic lung disease, lack of insulin therapy. Most recent labs from 2022 did not indicate ABPA though IgE and CBC with differential should be repeated in the patient. Dr. Waters discussed at length the concern with this significant decrease in his FEV1 over the last 7 months and the need to focus on his treatment therapy aggressively in order to gain recovery. He is agreeable to inpatient admission for CF exacerbation, diabetes management. Updates 11/27: -Episode of hyperglycemia to 500s yesterday, given 4u extra lispro then 8u after repeat was in 500s - per endocrine no current insulin changes - Continue with current abx regimen (vanc, ceftaz; stopped colistin per Dr. Allan) -holding Trikafta, plan to resume if LFTs downtrend today -RUQ yesterday showing cirrhotic changes, no acute pathologies #Cystic Fibrosis exacerbation (N/dF508;HMP8=123->88%-> 66% ) ::Previously BAL cultures grew MRSA, M. Abscessus 09/28 - Modulator: START Trikafta - holding due to elevated LFTs - Bronchodilators: Albuterol PRN, breo - HTS: 7% BID - Dornase: ordered - Inhaled ABX: none - Airway Clearance: Vest TID - Antibiotics: -IV ceftazidime 2g q8hrs -IV vanc pharmacy to dose -Avoid macrolides given NTM -Fu respiratory cultures obtained in clinic, currently growing MRSA and levar #hx of SVT s/p adenosine -monitor for symptoms -Should follow up with EP outpatient for consideration of ablation #CFRD ::Patient reports being on 25u lantus BID and 8u humalog with meals +SSI at home -A1c 9.7 on admission -Consult endocrine, appreciate recs -Continue lantus 25U at night 11u lispro TID with meals, up titrate as needed pending endo recs -SSI #1 #Exocrine Pancreatic insufficiency -continue zenPEP with meals #Cirrhosis #transaminitis - Follows with Dr. Briceño with GI - LFTs normal on admission, well compensated on exam - LFT increase thought to be 2/2 trikafta, holding trifakta and trending LFTs - RUQ consistent with cirrhosis F: PRN E: PRN N: Regular Diet A: pIV DVT ppx: Lovenox GI ppx: Not indicated CODE STATUS: Full Code (confirmed on admission) Surrogate Decision Maker: Sister Alice Damon Case seen and discussed with attending Dr. Ambrosio, to addend as necessary. Marquise Mensah MD ======= I saw and evaluated the patient. I personally obtained the bunn and critical portions of the history and physical exam or was physically present for bunn and critical portions performed by the resident/fellow. I reviewed the resident/fellow's documentation and discussed the patient with the resident/fellow. I agree with the resident/fellow's medical decision making as documented in the note. Braxton Ambrosio MD Bravo Hull is a 38 y.o. male on day 6 of admission presenting with Cystic fibrosis (Multi). Subjective Pt interviewed at the bedside. Pt endorses accidentally selecting full-sugar meghana chaitanya with lunch yesterday instead of diet. He agrees that current insulin plan continuation is most appropriate. Pt has no complaints and reports feeling well. No fever, chills, shortness of breath. I have reviewed histories, allergies and medications have been reviewed and there are no changes Objective Review of Systems Constitutional: Negative for fatigue and fever. HENT: Negative for congestion. Respiratory: Negative for cough and shortness of breath. Cardiovascular: Negative for chest pain. Gastrointestinal: Negative for abdominal pain and diarrhea. Genitourinary: Negative for difficulty urinating. Musculoskeletal: Negative for arthralgias. Neurological: Negative for weakness. Physical Exam Constitutional: Appearance: Normal appearance. HENT: Head: Normocephalic and atraumatic. Nose: Nose normal. Mouth/Throat: Mouth: Mucous membranes are moist. Pharynx: Oropharynx is clear. Cardiovascular: Rate and Rhythm: Normal rate and regular rhythm. Heart sounds: Normal heart sounds. Pulmonary: Effort: Pulmonary effort is normal. No respiratory distress. Breath sounds: Normal breath sounds. Abdominal: General: Abdomen is flat. There is no distension. Musculoskeletal: General: Normal range of motion. Cervical back: Normal range of motion. Skin: General: Skin is warm and dry. Neurological: General: No focal deficit present. Mental Status: He is alert. Psychiatric: Mood and Affect: Mood normal. Behavior: Behavior normal. Last Recorded Vitals Blood pressure 131/87, pulse 90, temperature 37 C (98.6 F), temperature source Temporal, resp. rate 19, height 1.829 m (6'), weight 76.3 kg (168 lb 3.2 oz), SpO2 98%. Intake/Output last 3 Shifts: I/O last 3 completed shifts: In: 540 (7.1 mL/kg) [P.O.:240; IV Piggyback:300] Out: - (0 mL/kg) Weight: 76.3 kg Relevant Results Results from last 7 days Lab Units 11/28/23 0939 11/28/23 0057 11/27/23 2041 11/27/23 1900 11/27/23 1743 11/27/23 1144 11/27/23 0845 11/26/23 0810 11/26/23 0637 11/25/23 0828 11/25/23 0817 11/24/23 0857 11/24/23 0450 11/22/23 2034 11/22/23 1848 POCT GLUCOSE mg/dL 198* 230* 326* 485* 564* < > -- < > -- < > -- < > -- < > -- GLUCOSE mg/dL -- -- -- -- -- -- 120* -- 216* -- 137* -- 357* -- 165* < > = values in this interval not displayed. Scheduled medications busPIRone, 5 mg, oral, BID cefTAZidime, 2 g, intravenous, q8h cholecalciferol, 5,000 Units, oral, Daily dornase Alpha, 2.5 mg, nebulization, Daily [Held by provider] cshojklbcyv-lhkxtfspkr-rtsaxfsvd , 2 tablet, oral, q AM enoxaparin, 40 mg, subcutaneous, Daily fluticasone furoate-vilanteroL, 1 puff, inhalation, Daily insulin glargine, 25 Units, subcutaneous, q24h insulin lispro, 0-5 Units, subcutaneous, Before meals & nightly insulin lispro, 11 Units, subcutaneous, TID [Held by provider] ivacaftor, 150 mg, oral, q PM lidocaine, 5 mL, infiltration, Once nqjsab-vsunqaon-myydlvs, 3 capsule, oral, TID mirtazapine, 15 mg, oral, Nightly multivit with minerals-folic acid-criss K-CoQ, 1 capsule, oral, Daily sodium chloride, 3 mL, nebulization, q12h vancomycin, 1,000 mg, intravenous, q8h Continuous medications PRN medications PRN medications: albuterol, albuterol, alteplase, dextrose, dextrose, glucagon, glucagon, vancomycin Assessment/Plan Principal Problem: Cystic fibrosis (Multi) CFRD History Of Present Illness Bravo Hull is a 38 y.o. male presenting with acute exacerbation of cystic fibrosis. CF (MSSA, MRSA, NTM (M. 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 Sharp decline in FEV1 in the last 7 months. Pt has been without all medications in the last 7 months due to insurance issues. Has not had insulin which is normally given by PCP who he has not seen in this time either. Pt feels well today and has no complaints. Diabetes History Outpatient provider for endocrine care Dr. Camilo (PCP), date of last visit several months ago Initial diabetes diagnosis was made (year/age) several years ago (CFRD) Known complications due to diabetes include: hyperglycemia Home Management 25u lantus BID 8u lispro TIDAC + SS#1 PLAN: - Goal BG <180 - continue glargine 25u once daily NPO or glucose trending <100mg/dL: reduce to 20u - continue lispro 11u with meals plus scale #1 NPO or glucose <90mg/dL within 1hr before meals: hold - continue lispro corrective scale #1 with meals, retime to q6hr if NPO or q4hr if persistently hyperglycemic >250mg/dL 70-150 = 0u 151-200 = 1u 201-250 = 2u 251-300 = 3u 301-350 = 4u 351-400 = 5u -Accuchecks (not BMP) TIDAC and QHS- kindly ensure QHS Accucheck is drawn; it is often missed -Hypoglycemia protocol -Diabetes Diet- low carb 60 CHO -Will continue to follow and titrate insulin accordingly Dispo: pt can expect to discharge on multiple doses of insulin, with exact regimen TBD by titration up until the day of discharge. Pt is out of all insulin/diabetes supplies at home and will need everything ordered new upon discharge. [in terms of ordering supplies, to make it easy, if you go under discharge tab, and click discharge orders on the left, when you go to write discharge orders, if you click on the new button with the green plus sign, and click follow users you can search for Regina Rosado PA-C all insulins and DM supplies saved so you can just select from that list if it is helpful!] HOME GOING RECS - please order insulin glargine/basaglar U-100 insulin pen inject (TBD) units under the skin once every morning 30 days = 5 pens - please order insulin lispro U-100 insulin pen inject (TBD) units plus sliding scale three times daily with meals 70-150 = 0u, 151-200 = 2u, 201-250 = 4u, 251-300 = 6u, 301-350 = 8u, 351-400+ = 10u, use up to (TBD) units daily 30 days = 5 pens - please order insulin pen needles 32G 4mm for QID injections, 90 days = 400 pen needles - please order glucose testing supplies for QID glucose measurement, 90 days = 1 glucose meter, 400 lancets and 400 strips - please order alcohol swabs - please order a form of glucagon rescue kit such as baqsimi or Gvoke hypopen write in comment section on all supplies ordered: substitutions may be made by pharmacist depending on insurance coverage and what the pharmacy has available MARIA ANTONIA Ugarte PA-S2 Images from the original note were not included. Stanford Ceja M.D. [facility] Identification: Bravo Hull is a 38 y.o. year old male patient who is hospital day #5. Subjective/Events: He is feeling much better than he did a couple days ago. Appetite is improving. His PIV is bothering him and is tired of constantly being poked. Medication Review No Known Allergies Scheduled medications busPIRone, 5 mg, oral, BID cefTAZidime, 2 g, intravenous, q8h cholecalciferol, 5,000 Units, oral, Daily dornase Alpha, 2.5 mg, nebulization, Daily [Held by provider] ydwfixzkpcf-nlirnyouzk-vmkecolgj , 2 tablet, oral, q AM enoxaparin, 40 mg, subcutaneous, Daily fluticasone furoate-vilanteroL, 1 puff, inhalation, Daily insulin glargine, 25 Units, subcutaneous, q24h insulin lispro, 0-5 Units, subcutaneous, TID insulin lispro, 11 Units, subcutaneous, TID insulin lispro protamin-lispro, 4 Units, subcutaneous, Once [Held by provider] ivacaftor, 150 mg, oral, q PM lidocaine, 5 mL, infiltration, Once bvkjao-fbjlwlvo-rpkkkor, 3 capsule, oral, TID mirtazapine, 15 mg, oral, Nightly multivit with minerals-folic acid-criss K-CoQ, 1 capsule, oral, Daily sodium chloride, 3 mL, nebulization, q12h vancomycin, 1,000 mg, intravenous, q8h Continuous medications PRN medications PRN medications: albuterol, albuterol, alteplase, dextrose, dextrose, glucagon, glucagon, vancomycin Physical Examination Temp: [37 C (98.6 F)] 37 C (98.6 F) Heart Rate: [98-99] 99 Resp: [16-18] 18 BP: (123-148)/(80-83) 123/83 No intake/output data recorded. I/O this shift: In: 240 [P.O.:240] Out: - General: Thin male in no acute distress Skin: Right PIV with erythema around the site Chest: Nonlabored; no retractions; fair to good air exchange with coarse breath sounds in upper lobes Cardiac: Regular rate and rhythm Abdomen: + bowel sounds Extremities: No edema Psych: Appropriate mood and behavior Metabolic Parameters Sodium Date/Time Value Ref Range Status 11/27/2023 08:45 AM 137 136 - 145 mmol/L Final Potassium Date/Time Value Ref Range Status 11/27/2023 08:45 AM 4.1 3.5 - 5.3 mmol/L Final Chloride Date/Time Value Ref Range Status 11/27/2023 08:45 AM 105 98 - 107 mmol/L Final Bicarbonate Date/Time Value Ref Range Status 11/27/2023 08:45 AM 27 21 - 32 mmol/L Final Anion Gap Date/Time Value Ref Range Status 11/27/2023 08:45 AM 9 (L) 10 - 20 mmol/L Final Urea Nitrogen Date/Time Value Ref Range Status 11/27/2023 08:45 AM 13 6 - 23 mg/dL Final Creatinine Date/Time Value Ref Range Status 11/27/2023 08:45 AM 0.61 0.50 - 1.30 mg/dL Final GFR MALE Date/Time Value Ref Range Status 10/04/2021 11:09 AM >90 >90 mL/min/1.73m2 Final Comment: CALCULATIONS OF ESTIMATED GFR ARE PERFORMED USING THE 2020 CKD-EPI STUDY REFIT EQUATION WITHOUT THE RACE VARIABLE FOR THE IDMS-TRACEABLE CREATININE METHODS. https://jasn.asnjournals.org/con tent/early//ASN.113232 4946 Glucose Date/Time Value Ref Range Status 11/27/2023 08:45 AM 120 (H) 74 - 99 mg/dL Final Calcium Date/Time Value Ref Range Status 11/27/2023 08:45 AM 9.0 8.6 - 10.6 mg/dL Final Phosphorus Date/Time Value Ref Range Status 11/27/2023 08:45 AM 3.5 2.5 - 4.9 mg/dL Final Comment: The performance characteristics of phosphorus testing in heparinized plasma have been validated by the individual laboratory site where testing is performed. Testing on heparinized plasma is not approved by the FDA; however, such approval is not necessary. Hematologic Parameters WBC Date/Time Value Ref Range Status 11/27/2023 08:45 AM 7.5 4.4 - 11.3 x10*3/uL Final Neutrophils Absolute Date/Time Value Ref Range Status 11/27/2023 08:45 AM 4.49 1.20 - 7.70 x10*3/uL Final Comment: Percent differential counts (%) should be interpreted in the context of the absolute cell counts (cells/uL). Neutrophils % Date/Time Value Ref Range Status 11/27/2023 08:45 AM 59.6 40.0 - 80.0 % Final Lymphocytes % Date/Time Value Ref Range Status 11/27/2023 08:45 AM 26.4 13.0 - 44.0 % Final Monocytes % Date/Time Value Ref Range Status 11/27/2023 08:45 AM 8.0 2.0 - 10.0 % Final Basophils % Date/Time Value Ref Range Status 11/27/2023 08:45 AM 0.8 0.0 - 2.0 % Final Eosinophils Absolute Date/Time Value Ref Range Status 11/27/2023 08:45 AM 0.33 0.00 - 0.70 x10*3/uL Final Eosinophils % Date/Time Value Ref Range Status 11/27/2023 08:45 AM 4.4 0.0 - 6.0 % Final Hemoglobin Date/Time Value Ref Range Status 11/27/2023 08:45 AM 13.8 13.5 - 17.5 g/dL Final Hematocrit Date/Time Value Ref Range Status 11/27/2023 08:45 AM 41.9 41.0 - 52.0 % Final RBC Date/Time Value Ref Range Status 11/27/2023 08:45 AM 4.88 4.50 - 5.90 x10*6/uL Final MCV Date/Time Value Ref Range Status 11/27/2023 08:45 AM 86 80 - 100 fL Final MCHC Date/Time Value Ref Range Status 11/27/2023 08:45 AM 32.9 32.0 - 36.0 g/dL Final Platelets Date/Time Value Ref Range Status 11/27/2023 08:45 AM 230 150 - 450 x10*3/uL Final Fat-Soluble Vitamin [...] developed and its performance characteristics determined by [facility]. It has not been cleared or approved by the [place] Food and Drug Administration. This test was performed in a CLIA certified laboratory and is intended for clinical purposes. Performed By: [facility] [address] [place] [address] Special Education Administrator: Chiki Valencia MD, PhD CLIA Number: [id number] Vitamin E (Alpha-Tocopherol) Date/Time Value Ref Range Status 04/24/2023 02:39 PM 2.9 (L) 5.5 - 18.0 mg/L Final Comment: This test was developed and its performance characteristics determined by [facility]. It has not been cleared or approved by the [place] Food and Drug Administration. This test was performed in a CLIA certified laboratory and is intended for clinical purposes. Vitamin E (Gamma-Tocopherol) Date/Time Value Ref Range Status 04/24/2023 02:39 PM 0.7 0.0 - 6.0 mg/L Final Comment: Performed By: [facility] [address] [place] [address] Special Education Administrator: Chiki Valencia MD, PhD CLIA Number: [id number] LFT and Associated Parameters AST Date/Time Value Ref Range Status 11/27/2023 08:45 AM 64 (H) 9 - 39 U/L Final ALT Date/Time Value Ref Range Status 11/27/2023 08:45 AM 66 (H) 10 - 52 U/L Final Comment: Patients treated with Sulfasalazine may generate falsely decreased results for ALT. Alkaline Phosphatase Date/Time Value Ref Range Status 11/27/2023 08:45 AM 135 (H) 33 - 120 U/L Final Bilirubin, Total Date/Time Value Ref Range Status 11/27/2023 08:45 AM 0.4 0.0 - 1.2 mg/dL Final Bilirubin, Direct Date/Time Value Ref Range Status 11/27/2023 08:45 AM 0.0 0.0 - 0.3 mg/dL Final GGT Date/Time Value Ref Range Status 11/22/2023 06:48 PM 62 5 - 64 U/L Final Albumin Date/Time Value Ref Range Status 11/27/2023 08:45 AM 3.5 3.4 - 5.0 g/dL Final Total Protein Date/Time Value Ref Range Status 11/27/2023 08:45 AM 6.8 6.4 - 8.2 g/dL Final Coagulation Parameters Protime Date/Time Value Ref Range Status 11/22/2023 06:48 PM 11.9 9.8 - 12.8 seconds Final INR Date/Time Value Ref Range Status 11/22/2023 06:48 PM 1.1 0.9 - 1.1 Final Diabetes Laboratory Tests POC HEMOGLOBIN A1c Date/Time Value Ref Range Status 09/19/2023 02:49 PM 10.0 (A) 4.2 - 6.5 % Final Hemoglobin A1C Date/Time Value Ref Range Status 11/22/2023 06:48 PM 9.7 (H) see below % Final Albumin/Creatine Ratio Date/Time Value Ref Range Status 04/24/2023 10:19 AM 43.7 (H) <30.0 ug/mg Creat Final Immunology Laboratory Tests IgE Date/Time Value Ref Range Status 11/22/2023 06:48 PM 14 0 - 214 IU/mL Final CF Sputum Culture AFB Culture Date Value Ref Range Status 11/20/2023 Isolated: Acid Fast Bacilli (A) Preliminary 10/01/2023 Mycobacterium abscessus (A) Final Comment: For antibiotic susceptibility results see Specimen # - [id number] 09/18/2023 10/01/2023 Mycobacterium abscessus (A) Final Comment: For antibiotic susceptibility results see Specimen # - [id number] 09/18/2023 09/18/2023 Isolated: Mycobacterium abscessus (A) Final 09/18/2023 Isolated: Mycobacterium abscessus (A) Corrected Comment: This is an appended report. These results have been appended to a previously final verified report. Respiratory Culture, Cystic Fibrosis Date/Time Value Ref Range Status 11/22/2023 09:19 PM (2+) Few Normal throat mariza Final 11/22/2023 09:19 PM (A) Final (2+) Few Methicillin Resistant Staphylococcus aureus (MRSA) Comment: Methicillin (Oxacillin) resistant Staphylococci are resistant to all currently available Penicillins, Beta-lactam/Beta-lactamase inhibitor combinations (including Ampicillin/Sulbactam, Amoxicillin/Clavulanate and Pipercillin/Tazobactam), Carbapenems and Cephalosporins (except Ceftaroline). 11/20/2023 01:37 PM (3+) Moderate Normal throat mariza Final 11/20/2023 01:37 PM (A) Final (2+) Few Methicillin Resistant Staphylococcus aureus (MRSA) Comment: Methicillin (Oxacillin) resistant Staphylococci are resistant to all currently available Penicillins, Beta-lactam/Beta-lactamase inhibitor combinations (including Ampicillin/Sulbactam, Amoxicillin/Clavulanate and Pipercillin/Tazobactam), Carbapenems and Cephalosporins (except Ceftaroline). 10/01/2023 01:45 PM (A) Final (1+) Rare Methicillin Resistant Staphylococcus aureus (MRSA) Comment: Methicillin (Oxacillin) resistant Staphylococci are resistant to all currently available Penicillins, Beta-lactam/Beta-lactamase inhibitor combinations (including Ampicillin/Sulbactam, Amoxicillin/Clavulanate and Pipercillin/Tazobactam), Carbapenems and Cephalosporins (except Ceftaroline). 10/01/2023 01:45 PM (1+) Rare Normal throat mariza Final Susceptibility data from last 90 days. Collected Specimen Info Organism Amikacin Cefoxitin Ciprofloxacin Clarithromycin Clindamycin Clofazimine Doxycycline Ertapenem 11/22/23 Fluid from SPUTUM Methicillin Resistant Staphylococcus aureus (MRSA) S Normal throat mariza 11/20/23 Fluid from SPUTUM Levar glabrata Levar dubliniensis 11/20/23 Fluid from SPUTUM Acid Fast Bacilli 11/20/23 Fluid from SPUTUM Methicillin Resistant Staphylococcus aureus (MRSA) S Normal throat mariza 10/01/23 Fluid from TRACHEAL WASH Mycobacterium abscessus 10/01/23 Fluid from TRACHEAL WASH Methicillin Resistant Staphylococcus aureus (MRSA) S 10/01/23 Fluid from BAL Methicillin Resistant Staphylococcus aureus (MRSA) S Normal throat mariza 10/01/23 Fluid from BAL Mycobacterium abscessus 09/18/23 Fluid from SPUTUM Methicillin Resistant Staphylococcus aureus (MRSA) S Normal throat mariza 09/18/23 Fluid from SPUTUM Levar albicans 09/18/23 Fluid from SPUTUM Mycobacterium abscessus (2) S I R S No interpret R No interpret Mycobacterium abscessus (1) S I R S No interpret R No interpret Collected Specimen Info Organism Erythromycin Imipenem Linezolid Meropenem Moxifloxacin Oxacillin Tetracycline Tigecycline 11/22/23 Fluid from SPUTUM Methicillin Resistant Staphylococcus aureus (MRSA) R R S Normal throat marzia 11/20/23 Fluid from SPUTUM Levar glabrata Levar dubliniensis 11/20/23 Fluid from SPUTUM Acid Fast Bacilli 11/20/23 Fluid from SPUTUM Methicillin Resistant Staphylococcus aureus (MRSA) R R S Normal throat mariza 10/01/23 Fluid from TRACHEAL WASH Mycobacterium abscessus 10/01/23 Fluid from TRACHEAL WASH Methicillin Resistant Staphylococcus aureus (MRSA) R R S 10/01/23 Fluid from BAL Methicillin Resistant Staphylococcus aureus (MRSA) R R S Normal throat mariza 10/01/23 Fluid from BAL Mycobacterium abscessus 09/18/23 Fluid from SPUTUM Methicillin Resistant Staphylococcus aureus (MRSA) R R S Normal throat mariza 09/18/23 Fluid from SPUTUM Levar albicans 09/18/23 Fluid from SPUTUM Mycobacterium abscessus (2) S I R R No interpret Mycobacterium abscessus (1) S S No interpret I No interpret Collected Specimen Info Organism Trimethoprim/Sulfamethoxazole Vancomycin 11/22/23 Fluid from SPUTUM Methicillin Resistant Staphylococcus aureus (MRSA) S S Normal throat mariza 11/20/23 Fluid from SPUTUM Levar glabrata Levar dubliniensis 11/20/23 Fluid from SPUTUM Acid Fast Bacilli 11/20/23 Fluid from SPUTUM Methicillin Resistant Staphylococcus aureus (MRSA) S S Normal throat mariza 10/01/23 Fluid from TRACHEAL WASH Mycobacterium abscessus 10/01/23 Fluid from TRACHEAL WASH Methicillin Resistant Staphylococcus aureus (MRSA) S S 10/01/23 Fluid from BAL Methicillin Resistant Staphylococcus aureus (MRSA) S S Normal throat mariza 10/01/23 Fluid from BAL Mycobacterium abscessus 09/18/23 Fluid from SPUTUM Methicillin Resistant Staphylococcus aureus (MRSA) S S Normal throat mariza 09/18/23 Fluid from SPUTUM Levar albicans 09/18/23 Fluid from SPUTUM Mycobacterium abscessus (2) R Mycobacterium abscessus (1) R Assessment and Plan / Recommendations Bravo is a 38 y/o male with a history of cystic fibrosis who is admitted for a CF pulmonary exacerbation. # Cystic Fibrosis with severe exacerbation - Baseline FEV1 104% down to 66% upon admission; recommend spirometry on 11/28 - Resume Trikafta at full dose - All recent cultures have shown Staph - has history of growing Burkholderia (years ago) - no pseudomonas in any cultures that I can find - IV antibiotics: Ceftazidime 2 g IV q8, Vanco per pharmacy dosing - Please continue to Trikafta for now, may be able to restart in a day and please continue to monitor LFTs daily for now - Albuterol, Symbicort - HTS twice a day - Dornase - please start this as well - Inhaled ABX: none - Airway Clearance: Vest # 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 - Avoid macrolides inpatient - the treatment of NTM in cystic fibrosis starts with treating the underlying exacerbation - Patient will need a CT - would recommend getting this toward the end of the hospital stay when the current exacerbation is resolved - I would not currently consult ID as they normally defer NTM treatment in CF to us # CFRD - inpatient consult to endocrinology # Exocrine Pancreatic insufficiency - Continue Enzymes # Cirrhosis # Transaminitis - Elevation in ALT and AST may be related to double the dosage of Trikafta - Liver US 11/26 consistent with cirrhosis # Tobacco cessation - will need to re-address # SVT - has had episodes of SVT - consider cardiology consult if occurs while hospitalized SADIA Crespo 11/27/2023 6:01 PM Patient discussed with the [facility] team today. Thank you for the consult. The CF team will continue to follow closely. From 8 AM to 5 PM on Saturday through Saturday, please contact Kapil Covarrubias CNP for any CF needs. From 5 PM to 8 AM on Saturday-Saturday, please contact Madi Deras MD for any CF needs. Bravo Hull is a 38 y.o. male on day 5 of admission presenting with Cystic fibrosis (Multi). Subjective Patient seen this morning resting comfortably. Denies any new symptoms including f/c, worsening cough or sputum production. Having normal Bms. Has no complaints. Objective Last Recorded Vitals Blood pressure 123/83, pulse 99, temperature 37 C (98.6 F), temperature source Temporal, resp. rate 18, height 1.829 m (6'), weight 76.3 kg (168 lb 3.2 oz), SpO2 99%. Intake/Output last 3 Shifts: No intake/output data recorded. Physical Exam GEN: A&Ox3, no acute distress, appears comfortable. CARDIO: Normal rate and regular rhythm. No murmurs, rubs, or gallops. PULM: LCTAB, no accessory muscle use NEURO: Cranial nerves II-XII grossly intact. PSYCH: Appropriate mood and behavior, converses and responds appropriately during exam Relevant Results Labs Results from last 7 days Lab Units 11/27/23 0845 11/25/23 0817 11/22/23 1848 WBC AUTO x10*3/uL 7.5 7.7 10.8 HEMOGLOBIN g/dL 13.8 14.6 15.2 HEMATOCRIT % 41.9 45.5 48.6 PLATELETS AUTO x10*3/uL 230 259 261 Results from last 7 days Lab Units 11/27/23 0845 11/26/23 0637 11/25/23 0817 SODIUM mmol/L 137 134* 136 POTASSIUM mmol/L 4.1 4.2 4.1 CHLORIDE mmol/L 105 103 104 CO2 mmol/L 27 23 23 BUN mg/dL 13 15 14 CREATININE mg/dL 0.61 0.65 0.68 CALCIUM mg/dL 9.0 9.0 9.3 Results from last 7 days Lab Units 11/27/23 0845 11/26/23 0637 11/25/23 0817 11/24/23 0450 11/22/23 1848 ALK PHOS U/L 135* 132* 141* < > 136* BILIRUBIN TOTAL mg/dL 0.4 0.4 0.4 < > 0.6 BILIRUBIN DIRECT mg/dL 0.0 -- -- -- 0.1 PROTEIN TOTAL g/dL 6.8 6.9 7.5 < > 7.2 ALT U/L 66* 55* 57* < > 23 AST U/L 64* 52* 64* < > 20 < > = values in this interval not displayed. Results from last 7 days Lab Units 11/22/23 1848 APTT seconds 30 INR 1.1 Medications Scheduled medications busPIRone, 5 mg, oral, BID cefTAZidime, 2 g, intravenous, q8h cholecalciferol, 5,000 Units, oral, Daily dornase Alpha, 2.5 mg, nebulization, Daily [Held by provider] bxkjmxptfmd-ptletwanju-oepovzmrx , 2 tablet, oral, q AM enoxaparin, 40 mg, subcutaneous, Daily fluticasone furoate-vilanteroL, 1 puff, inhalation, Daily insulin glargine, 25 Units, subcutaneous, q24h insulin lispro, 0-5 Units, subcutaneous, TID insulin lispro, 11 Units, subcutaneous, TID [Held by provider] ivacaftor, 150 mg, oral, q PM lidocaine, 5 mL, infiltration, Once lnqdcz-ejdoapot-nshieln, 3 capsule, oral, TID mirtazapine, 15 mg, oral, Nightly multivit with minerals-folic acid-criss K-CoQ, 1 capsule, oral, Daily sodium chloride, 3 mL, nebulization, q12h vancomycin, 1,000 mg, intravenous, q8h Continuous medications PRN medications PRN medications: albuterol, albuterol, alteplase, dextrose, dextrose, glucagon, glucagon, vancomycin Imaging US liver with doppler (Results Pending) Bedside PICC Imaging (Results Pending) Assessment/Plan Principal Problem: Cystic fibrosis (Multi) 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 Patient has not been taking any medications for the last 1 month and has not been taking Trikafta since May 2023. He also is currently in a CF exacerbation with a decrease in his FEV1 from 104% (04/2023) to now 66% (11/2023) with decreased weight in the setting of poor p.o. intake, chronic lung disease, lack of insulin therapy. Most recent labs from 2022 did not indicate ABPA though IgE and CBC with differential should be repeated in the patient. Dr. Waters discussed at length the concern with this significant decrease in his FEV1 over the last 7 months and the need to focus on his treatment therapy aggressively in order to gain recovery. He is agreeable to inpatient admission for CF exacerbation, diabetes management. Updates 11/26: - per endocrine, continue Glargine to 25 U at bedtime; increase lispro to 11u with meals, SSI - Continue with current abx regimen (vanc, ceftaz; stopped colistin per Dr. Allan) - No need to treat NTM for now, treating exacerbation and will reassess; discussed this with Dr. Alcantara, Mycobacterium treatment can be done in the future, and [facility]itentiary compliance with medication regimen will need to be ensured - CT scan when exacerbation is resolved -holding Trikafta, given higher dose on admission with LFT elevation, will reconsider resuming tomorrow pending LFT trend -RUQ done today pending formal read #Cystic Fibrosis exacerbation ([id number];QQN4=191->88%-> 66% ) ::Previously BAL cultures grew MRSA, M. Abscessus 09/28 - Modulator: START Trikafta - holding due to elevated LFTs - Bronchodilators: Albuterol PRN, breo - HTS: 7% BID - Dornase: ordered - Inhaled ABX: none - Airway Clearance: Vest TID - Antibiotics: -IV ceftazidime 2g q8hrs -IV vanc pharmacy to dose -Avoid macrolides given NTM -Fu respiratory cultures obtained in clinic, currently growing MRSA and levar #hx of SVT s/p adenosine -monitor for symptoms -Should follow up with EP outpatient for consideration of ablation #CFRD ::Patient reports being on 25u lantus BID and 8u humalog with meals +SSI at home -A1c 9.7 on admission -Consult endocrine, appreciate recs -Continue lantus 25U at night 11u lispro TID with meals, up titrate as needed pending endo recs -SSI #1 #Exocrine Pancreatic insufficiency -continue zenPEP with meals #Cirrhosis #transaminitis - Follows with Dr. Briceño with GI - LFTs normal on admission, well compensated on exam - LFT increase thought to be 2/2 trikafta, holding trifakta and trending LFTs - fu RUQ US results F: PRN E: PRN N: Regular Diet A: pIV DVT ppx: Lovenox GI ppx: Not indicated CODE STATUS: Full Code (confirmed on admission) Surrogate Decision Maker: Sister Alice Damon Case seen and discussed with attending Dr. Prado, to addend as necessary. Marquise Mensah MD Associated attestation - Melanie Prado DO - 11/27/2023 4:09 PM EDT I saw and evaluated the patient. I personally obtained the bunn and critical portions of the history and physical exam or was physically present for bunn and critical portions performed by the resident/fellow. I reviewed the resident/fellow's documentation and discussed the patient with the resident/fellow. I agree with the resident/fellow's medical decision making as documented in the note. Physical Therapy Physical Therapy Treatment Patient Name: Bravo Hull Today's Date: 11/26/2023 Time Calculation Start Time: 160 Stop Time: 164 Time Calculation (min): 40 min Assessment/Plan PT Plan Treatment/Interventions: Gait training, Stair training, Balance training, Strengthening, Endurance training PT Plan: Skilled PT PT Frequency: 3 times per week PT Discharge Recommendations: No PT needed after discharge PT Recommended Transfer Status: Independent PT - OK to Discharge: Yes (pending CF team clearance) Line and Tubes PIV O2 Delivery room air Pre Treatment Patient Position Sitting EOB Pre Treatment Heart Rate (beats/min) 107 Pre Treatment SpO2 (%) 95% During Treatment Patient Position Exercise and STS test During Treatment Heart Rate (beats/min) 153 (max HR) during exercise During Treatment SpO2 (%) Lowest spO2 95% During Treatment Oxygen Delivery room air During Treatment Comments max HR, min O2 during ther ex/ambulation Post Treatment Patient Position sitting Post Treatment Heart Rate (beats/min) 109 Post Treatment SpO2 (%) 97% Post Treatment Oxygen Delivery room air Vision/Cognition: Affect/Mental Status (Cognitive) WFL Orientation Status (Cognition) oriented x 3 Able to Follow Commands (Receptive) WFL Mobility/Tone: Transfer Assessment/Interventions sit to stand transfer; stand to sit transfer Sit-Stand [place] (Transfers) independent Stand-Sit [place] (Transfers) independent Gait/Stairs Locomotion gait/ambulation independence; gait/ambulation assistive device; distance ambulated; gait pattern utilized; gait deviations Gait Locomotion (Gait) supervision; HR / O2 monitoring Distance in Feet (Gait Training) 200 ft x 2 (to/from exercise room), plus TM distance Gait Pattern Utilized (Gait) swing-through gait Impairments Impacting Function (Mobility) endurance/activity tolerance; shortness of breath Pain 0/10 Functional Endurance/ Exercise 1)Pt used recumbent bike x 10 min Level 6-10 Rpm 50-60 Distance: 2 miles HR max 129, spO2 min 96% on room air RPD 4/10, RPE 14/20 2)I/Y/T on stability ball 5#, 10 reps, 2 sets 3)Bent over row, 10#, 15x 2 sets ea 4)PT assisted in the following stretches -B hamstring x 45 sec, 2 sets ea -B hip flex x 45 sec, 2 sets ea -B figure 4 in supine x 45 sec, 2 sets ea 5)Treadmill x 10 min Speed 3.0 mph Incline 3% HR max 153 bpm, spO2 97% Outcomes Tools: Turning from your back to your side while in a flat bed without using bedrails none Moving from lying on your back to sitting on the side of a flat bed without using bedrails none Moving to and from bed to chair (including a wheelchair) none Standing up from a chair using your arms (e.g. wheelchair or bedside chair) none Climbing 3-5 steps with railing a little OP EDUCATION: Encounter Problems Encounter Problems (Active) PT Problem Pt will perform a 6MWT, with distance greater than 1350 ft with stable vitals, RPD 3/10 or less, RPE 13/20 or less. Start: 11/26/23 Expected End: 12/16/23 pt will complete a 1 min STS: greater than 44x, RPD 3/10 or less, RPE 13/20 or less Start: 11/26/23 Expected End: 12/16/23 pt will negotiate 1 flight of stairs for improved community mobility and for work environment, RPD 3/10 or less, RPE 13/20 or less Start: 11/26/23 Expected End: 12/16/23 pt will participate in 30 min of continuous activity/exercise with minimal breaks and stable vitals Start: 11/26/23 Expected End: 12/16/23 Bravo Hull is a 38 y.o. male on day 4 of admission presenting with Cystic fibrosis (Multi). Subjective Pt interviewed at the bedside. Pt feeling well and eating lunch at interview. Pt has no complaints and reports feeling well. No fever, chills, shortness of breath. I have reviewed histories, allergies and medications have been reviewed and there are no changes Objective Review of Systems Constitutional: Negative for fatigue and fever. HENT: Negative for congestion. Respiratory: Negative for cough and shortness of breath. Cardiovascular: Negative for chest pain. Gastrointestinal: Negative for abdominal pain and diarrhea. Genitourinary: Negative for difficulty urinating. Musculoskeletal: Negative for arthralgias. Neurological: Negative for weakness. Physical Exam Constitutional: Appearance: Normal appearance. HENT: Head: Normocephalic and atraumatic. Nose: Nose normal. Mouth/Throat: Mouth: Mucous membranes are moist. Pharynx: Oropharynx is clear. Cardiovascular: Rate and Rhythm: Normal rate and regular rhythm. Heart sounds: Normal heart sounds. Pulmonary: Effort: Pulmonary effort is normal. No respiratory distress. Breath sounds: Normal breath sounds. Abdominal: General: Abdomen is flat. There is no distension. Musculoskeletal: General: Normal range of motion. Cervical back: Normal range of motion. Skin: General: Skin is warm and dry. Neurological: General: No focal deficit present. Mental Status: He is alert. Psychiatric: Mood and Affect: Mood normal. Behavior: Behavior normal. Last Recorded Vitals Blood pressure 123/83, pulse 104, temperature 36.3 C (97.3 F), temperature source Temporal, resp. rate 16, height 1.829 m (6'), weight 74.4 kg (164 lb), SpO2 98%. Intake/Output last 3 Shifts: No intake/output data recorded. Relevant Results Results from last 7 days Lab Units 11/26/23 0810 11/26/23 0637 11/25/23201111/25/23 1757 11/25/23 1218 11/25/23 0828 11/25/23 0817 11/24/23 0857 11/24/23 0450 11/22/23 2034 11/22/23 1848 POCT GLUCOSE mg/dL 214* -- 207* 294* 261* 118* -- < > -- < > -- GLUCOSE mg/dL -- 216* -- -- -- -- 137* -- 357* -- 165* < > = values in this interval not displayed. Scheduled medications busPIRone, 5 mg, oral, BID cefTAZidime, 2 g, intravenous, q8h cholecalciferol, 5,000 Units, oral, Daily dornase Alpha, 2.5 mg, nebulization, Daily [Held by provider] paqhovxzksa-kvixpwoera-hkbalxcic , 2 tablet, oral, q AM enoxaparin, 40 mg, subcutaneous, Daily fluticasone furoate-vilanteroL, 1 puff, inhalation, Daily insulin glargine, 25 Units, subcutaneous, q24h insulin lispro, 0-5 Units, subcutaneous, TID insulin lispro, 11 Units, subcutaneous, TID [Held by provider] ivacaftor, 150 mg, oral, q PM mvolel-puuphtoi-hnmqfqv, 3 capsule, oral, TID mirtazapine, 15 mg, oral, Nightly multivit with minerals-folic acid-criss K-CoQ, 1 capsule, oral, Daily sodium chloride, 3 mL, nebulization, q12h vancomycin, 1,000 mg, intravenous, q8h Continuous medications PRN medications PRN medications: albuterol, albuterol, dextrose, dextrose, glucagon, glucagon, vancomycin Assessment/Plan Principal Problem: Cystic fibrosis (Multi) CFRD History Of Present Illness Bravo Handy Hull is a 38 y.o. male presenting with acute exacerbation of cystic fibrosis. CF (MSSA, MRSA, NTM (M. 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 Sharp decline in FEV1 in the last 7 months. Pt has been without all medications in the last 7 months due to insurance issues. Has not had insulin which is normally given by PCP who he has not seen in this time either. Pt feels well today and has no complaints. Diabetes History Outpatient provider for endocrine care Dr. Camilo (PCP), date of last visit several months ago Initial diabetes diagnosis was made (year/age) several years ago (CFRD) Known complications due to diabetes include: hyperglycemia Home Management 25u lantus BID 8u lispro TIDAC + SS#1 PLAN: - Goal BG <180 - continue glargine 25u once daily NPO or glucose trending <100mg/dL: reduce to 20u - increase lispro to 11u from 8u with meals plus scale #1 NPO or glucose <90mg/dL within 1hr before meals: hold - continue lispro corrective scale with meals, retime to q6hr if NPO or q4hr if persistently hyperglycemic >250mg/dL 70-150 = 0u 151-200 = 1u 201-250 = 2u 251-300 = 3u 301-350 = 4u 351-400 = 5u -Accuchecks (not BMP) TIDAC and QHS- kindly ensure QHS Accucheck is drawn; it is often missed -Hypoglycemia protocol -Diabetes Diet- low carb 60 CHO -Will continue to follow and titrate insulin accordingly Dispo: pt can expect to discharge on multiple doses of insulin, with exact regimen TBD by titration up until the day of discharge. MARIA ANTONIA UgarteS2 Associated attestation - Jocelyne Day PA-C - 11/26/2023 12:13 PM EDT I was present with the PA student who participated in the documentation of this note. I have personally seen and re-examined the patient and performed the medical decision-making components (assessment and plan of care). I have reviewed the PA student documentation and verified the findings in the note as written with additions or exceptions as stated in the body of this note. Jocelyne Day PA-C Endocrinology Inpatient Diabetes Management Team Vancomycin Dosing by Pharmacy- FOLLOW UP Bravo Handy Hull is a 38 y.o. year old male who Pharmacy has been consulted for vancomycin dosing for pneumonia. Based on the patient's indication and renal status this patient is being dosed based on a goal AUC of 400-600. Renal function is currently stable. Current vancomycin dose: 1000 mg given every 8 hours Estimated vancomycin AUC on current dose: 275 mg/L.hr Visit Vitals BP 123/83 Pulse 104 Temp 36.3 C (97.3 F) (Temporal) Resp 16 Lab Results Component Value Date CREATININE 0.65 11/26/2023 CREATININE 0.68 11/25/2023 CREATININE 0.81 11/24/2023 CREATININE 0.96 11/22/2023 Patient weight is as follows: Vitals: 11/22/23 1648 Weight: 74.4 kg (164 lb) Cultures: Susceptibility data for the encounter in last 14 days. Collected Specimen Info Organism 11/22/23 Fluid from SPUTUM Staphylococcus aureus Normal throat amriza No intake/output data recorded. I/O during current shift: No intake/output data recorded. Temp (24hrs), Av.2 C (97.2 F), Min:36.1 C (97 F), Max:36.3 C (97.3 F) Assessment/Plan Below goal AUC. Orders placed for new vancomcyin regimen of 1000 every 8 hours to begin at 1500. This dosing regimen is predicted by [employer] to result in the following pharmacokinetic parameters: Regimen: 1000 mg IV every 8 hours. Start time: 03:15 on 11/26/2023 Exposure target: AUC24 (range)400-600 mg/L.hr AUC24,ss: 412 mg/L.hr Probability of AUC24 > 400: 58 % Ctrough,ss: 10.8 mg/L Probability of Ctrough,ss > 20: 0 % Probability of nephrotoxicity (Lodise MALVIN 2008): 6 % The next level will be obtained on 523 AM labs. May be obtained sooner if clinically indicated. Will continue to monitor renal function daily while on vancomycin and order serum creatinine at least every 48 hours if not already ordered. Follow for continued vancomycin needs, clinical response, and signs/symptoms of toxicity. Lala Rosas RPh Bravo Hull is a 38 y.o. male on day 4 of admission presenting with Cystic fibrosis (Multi). Subjective Patient seen eating breakfast this morning, has no complaints. Denies worsening cough. No f/c. Regular Bms. Objective Last Recorded Vitals Blood pressure 123/83, pulse 104, temperature 36.3 C (97.3 F), temperature source Temporal, resp. rate 16, height 1.829 m (6'), weight 74.4 kg (164 lb), SpO2 98%. Intake/Output last 3 Shifts: I/O last 3 completed shifts: In: 50 (0.7 mL/kg) [I.V.:50 (0.7 mL/kg)] Out: - (0 mL/kg) Weight: 74.4 kg Physical Exam GEN: A&Ox3, no acute distress, appears comfortable. CARDIO: Normal rate and regular rhythm. No murmurs, rubs, or gallops. PULM: LCTAB, no accessory muscle use NEURO: Cranial nerves II-XII grossly intact. PSYCH: Appropriate mood and behavior, converses and responds appropriately during exam Relevant Results Labs Results from last 7 days Lab Units 11/25/23 0817 11/22/23 1848 WBC AUTO x10*3/uL 7.7 10.8 HEMOGLOBIN g/dL 14.6 15.2 HEMATOCRIT % 45.5 48.6 PLATELETS AUTO x10*3/uL 259 261 Results from last 7 days Lab Units 11/25/23 0817 11/24/23 0450 11/22/23 1848 SODIUM mmol/L 136 135* 135* POTASSIUM mmol/L 4.1 4.4 4.4 CHLORIDE mmol/L 104 102 101 CO2 mmol/L 23 24 27 BUN mg/dL 14 19 11 CREATININE mg/dL 0.68 0.81 0.96 CALCIUM mg/dL 9.3 8.8 8.8 Results from last 7 days Lab Units 11/25/23 0817 11/24/23 0450 11/22/23 1848 ALK PHOS U/L 141* 133* 136* BILIRUBIN TOTAL mg/dL 0.4 0.4 0.6 BILIRUBIN DIRECT mg/dL -- -- 0.1 PROTEIN TOTAL g/dL 7.5 6.7 7.2 ALT U/L 57* 32 23 AST U/L 64* 36 20 Results from last 7 days Lab Units 11/22/23 1848 APTT seconds 30 INR 1.1 Medications Scheduled medications busPIRone, 5 mg, oral, BID cefTAZidime, 2 g, intravenous, q8h cholecalciferol, 5,000 Units, oral, Daily dornase Alpha, 2.5 mg, nebulization, Daily [Held by provider] ytbaxexyptz-esquksypfn-klmzzggkg , 2 tablet, oral, q AM enoxaparin, 40 mg, subcutaneous, Daily fluticasone furoate-vilanteroL, 1 puff, inhalation, Daily insulin glargine, 25 Units, subcutaneous, q24h insulin lispro, 0-5 Units, subcutaneous, TID insulin lispro, 8 Units, subcutaneous, TID [Held by provider] ivacaftor, 150 mg, oral, q PM ffnlrq-dkjfegkt-xrjuheg, 3 capsule, oral, TID mirtazapine, 15 mg, oral, Nightly multivit with minerals-folic acid-criss K-CoQ, 1 capsule, oral, Daily sodium chloride, 3 mL, nebulization, q12h vancomycin, 1,000 mg, intravenous, q12h Continuous medications PRN medications PRN medications: albuterol, albuterol, dextrose, dextrose, glucagon, glucagon, vancomycin Imaging No orders to display Assessment/Plan Principal Problem: Cystic fibrosis (Multi) 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 Patient has not been taking any medications for the last 1 month and has not been taking Trikafta since May 2023. He also is currently in a CF exacerbation with a decrease in his FEV1 from 104% (04/2023) to now 66% (11/2023) with decreased weight in the setting of poor p.o. intake, chronic lung disease, lack of insulin therapy. Most recent labs from 2022 did not indicate ABPA though IgE and CBC with differential should be repeated in the patient. Dr. Waters discussed at length the concern with this significant decrease in his FEV1 over the last 7 months and the need to focus on his treatment therapy aggressively in order to gain recovery. He is agreeable to inpatient admission for CF exacerbation, diabetes management. Updates 11/25: - per endocrine, continue Glargine to 25 U at bedtime; increase lispro to 11u with meals, SSI - Continue with current abx regimen (vanc, ceftaz; stopped colistin per Dr. Allan) - No need to treat NTM for now, treating exacerbation and will reassess; discussed this with Dr. Alcantara, Mycobacterium treatment can be done in the future, and [facility]itentiary compliance with medication regimen will need to be ensured - CT scan when exacerbation is resolved -holding Trikafta, given higher dose yesterday with LFT elevation, will reconsider resuming tomorrow pending LFT trend #Cystic Fibrosis exacerbation ([id number]/[id number];FOO7=877->88%-> 66% ) ::Previously BAL cultures grew MRSA, M. Abscessus 09/28 - Modulator: START Trikafta - holding - Bronchodilators: Albuterol PRN, breo - HTS: 7% BID - Dornase: ordered - Inhaled ABX: none - Airway Clearance: Vest TID - Antibiotics: -IV ceftazidime 2g q8hrs -IV vanc pharmacy to dose -Avoid macrolides given NTM -Fu respiratory cultures obtained in clinic, currently growing MRSA and levar #hx of SVT s/p adenosine -monitor for symptoms -consider metop for suppression if HR tolerates -Should follow up with EP outpatient for consideration of ablation #CFRD ::Patient reports being on 25u lantus BID and 8u humalog with meals +SSI at home -A1c 9.7 on admission - IContinue lantus 25U at night 11u lispro TID with meals, up titrate as needed pending endo recs -SSI #1 -Consult endocrine, appreciate recs #Exocrine Pancreatic insufficiency -continue zenPEP with meals #Cirrhosis - Follows with Dr. Briceño with GI - LFTs normal, well compensated on exam F: PRN E: PRN N: Regular Diet A: pIV DVT ppx: Lovenox GI ppx: Not indicated CODE STATUS: Full Code (confirmed on admission) Surrogate Decision Maker: Sister Alice Damon Case seen and discussed with attending Dr. Prado, to addend as necessary. Marquise Mensah MD Associated attestation - Melanie Prado DO - 11/26/2023 1:03 PM EDT I saw and evaluated the patient. I personally obtained the bunn and critical portions of the history and physical exam or was physically present for bunn and critical portions performed by the resident/fellow. I reviewed the resident/fellow's documentation and discussed the patient with the resident/fellow. I agree with the resident/fellow's medical decision making as documented in the note. Images from the original note were not included. Stanford Ceja M.D. [facility] Identification: Bravo Hull is a 38 y.o. year old male patient who is hospital day #3. Subjective/Events: He is tolerating the IV antibiotics okay. Hopeful to get a PICC line placed. Appetite is getting better now that he is in the hospital. Long discussion about compliance and all the overtime he needs to put in at his place of employment. Feels he has no choice but to work those hours but then is not able to stay on top of his therapies. Medication Review No Known Allergies Scheduled medications busPIRone, 5 mg, oral, BID cefTAZidime, 2 g, intravenous, q8h cholecalciferol, 5,000 Units, oral, Daily dornase Alpha, 2.5 mg, nebulization, Daily [Held by provider] ljaxrebakok-uetcjrtblp-nryhutcmj , 2 tablet, oral, q AM enoxaparin, 40 mg, subcutaneous, Daily fluticasone furoate-vilanteroL, 1 puff, inhalation, Daily insulin glargine, 25 Units, subcutaneous, q24h insulin lispro, 0-5 Units, subcutaneous, TID insulin lispro, 8 Units, subcutaneous, TID [Held by provider] ivacaftor, 150 mg, oral, q PM akazvk-jycqqdse-xiosdwx, 3 capsule, oral, TID mirtazapine, 15 mg, oral, Nightly multivit with minerals-folic acid-criss K-CoQ, 1 capsule, oral, Daily sodium chloride, 3 mL, nebulization, q12h vancomycin, 1,000 mg, intravenous, q12h Continuous medications PRN medications PRN medications: albuterol, albuterol, dextrose, dextrose, glucagon, glucagon, vancomycin Physical Examination Temp: [36.1 C (97 F)-36.5 C (97.7 F)] 36.3 C (97.3 F) Heart Rate: [92-104] 104 Resp: [16] 16 BP: (120-124)/(70-83) 123/83 I/O last 3 completed shifts: In: 50 (0.7 mL/kg) [I.V.:50 (0.7 mL/kg)] Out: - (0 mL/kg) Weight: 74.4 kg No intake/output data recorded. General: Thin male in no acute distress Skin: No rashes HEENT: Sclera anicteric Chest: Nonlabored; no retractions; fair to good air exchange with coarse breath sounds Cardiac: Regular rate and rhythm Abdomen: Soft, nontender; + bowel sounds Extremities: No edema Psych: Appropriate mood and behavior Metabolic Parameters Sodium Date/Time Value Ref Range Status 11/25/2023 08:17 AM 136 136 - 145 mmol/L Final Potassium Date/Time Value Ref Range Status 11/25/2023 08:17 AM 4.1 3.5 - 5.3 mmol/L Final Chloride Date/Time Value Ref Range Status 11/25/2023 08:17 AM 104 98 - 107 mmol/L Final Bicarbonate Date/Time Value Ref Range Status 11/25/2023 08:17 AM 23 21 - 32 mmol/L Final Anion Gap Date/Time Value Ref Range Status 11/25/2023 08:17 AM 13 10 - 20 mmol/L Final Urea Nitrogen Date/Time Value Ref Range Status 11/25/2023 08:17 AM 14 6 - 23 mg/dL Final Creatinine Date/Time Value Ref Range Status 11/25/2023 08:17 AM 0.68 0.50 - 1.30 mg/dL Final GFR MALE Date/Time Value Ref Range Status 10/04/2021 11:09 AM >90 >90 mL/min/1.73m2 Final Comment: CALCULATIONS OF ESTIMATED GFR ARE PERFORMED USING THE 2020 CKD-EPI STUDY REFIT EQUATION WITHOUT THE RACE VARIABLE FOR THE IDMS-TRACEABLE CREATININE METHODS. https://jasn.asnjournals.org/con tent/early//ASN.253559 2607 Glucose Date/Time Value Ref Range Status 11/25/2023 08:17 AM 137 (H) 74 - 99 mg/dL Final Calcium Date/Time Value Ref Range Status 11/25/2023 08:17 AM 9.3 8.6 - 10.6 mg/dL Final Phosphorus Date/Time Value Ref Range Status 11/22/2023 06:48 PM 3.0 2.5 - 4.9 mg/dL Final Comment: The performance characteristics of phosphorus testing in heparinized plasma have been validated by the individual laboratory site where testing is performed. Testing on heparinized plasma is not approved by the FDA; however, such approval is not necessary. Hematologic Parameters WBC Date/Time Value Ref Range Status 11/25/2023 08:17 AM 7.7 4.4 - 11.3 x10*3/uL Final Neutrophils Absolute Date/Time Value Ref Range Status 11/25/2023 08:17 AM 3.86 1.20 - 7.70 x10*3/uL Final Comment: Percent differential counts (%) should be interpreted in the context of the absolute cell counts (cells/uL). Neutrophils % Date/Time Value Ref Range Status 11/25/2023 08:17 AM 50.2 40.0 - 80.0 % Final Lymphocytes % Date/Time Value Ref Range Status 11/25/2023 08:17 AM 35.1 13.0 - 44.0 % Final Monocytes % Date/Time Value Ref Range Status 11/25/2023 08:17 AM 9.2 2.0 - 10.0 % Final Basophils % Date/Time Value Ref Range Status 11/25/2023 08:17 AM 0.6 0.0 - 2.0 % Final Eosinophils Absolute Date/Time Value Ref Range Status 11/25/2023 08:17 AM 0.34 0.00 - 0.70 x10*3/uL Final Eosinophils % Date/Time Value Ref Range Status 11/25/2023 08:17 AM 4.4 0.0 - 6.0 % Final Hemoglobin Date/Time Value Ref Range Status 11/25/2023 08:17 AM 14.6 13.5 - 17.5 g/dL Final Hematocrit Date/Time Value Ref Range Status 11/25/2023 08:17 AM 45.5 41.0 - 52.0 % Final RBC Date/Time Value Ref Range Status 11/25/2023 08:17 AM 5.34 4.50 - 5.90 x10*6/uL Final MCV Date/Time Value Ref Range Status 11/25/2023 08:17 AM 85 80 - 100 fL Final MCHC Date/Time Value Ref Range Status 11/25/2023 08:17 AM 32.1 32.0 - 36.0 g/dL Final Platelets Date/Time Value Ref Range Status 11/25/2023 08:17 AM 259 150 - 450 x10*3/uL Final Fat-Soluble Vitamin [...] developed and its performance characteristics determined by [facility]. It has not been cleared or approved by the [place] Food and Drug Administration. This test was performed in a CLIA certified laboratory and is intended for clinical purposes. Performed By: [facility] [address] [place] [address] Special Education Administrator: Chiki Valencia MD, PhD CLIA Number: [id number] Vitamin E (Alpha-Tocopherol) Date/Time Value Ref Range Status 04/24/2023 02:39 PM 2.9 (L) 5.5 - 18.0 mg/L Final Comment: This test was developed and its performance characteristics determined by [facility]. It has not been cleared or approved by the US Food and Drug Administration. This test was performed in a CLIA certified laboratory and is intended for clinical purposes. Vitamin E (Gamma-Tocopherol) Date/Time Value Ref Range Status 04/24/2023 02:39 PM 0.7 0.0 - 6.0 mg/L Final Comment: Performed By: [facility] [address] [place] [address] Special Education Administrator: Chiki Valencia MD, PhD CLIA Number: [id number] LFT and Associated Parameters AST Date/Time Value Ref Range Status 11/25/2023 08:17 AM 64 (H) 9 - 39 U/L Final ALT Date/Time Value Ref Range Status 11/25/2023 08:17 AM 57 (H) 10 - 52 U/L Final Comment: Patients treated with Sulfasalazine may generate falsely decreased results for ALT. Alkaline Phosphatase Date/Time Value Ref Range Status 11/25/2023 08:17 AM 141 (H) 33 - 120 U/L Final Bilirubin, Total Date/Time Value Ref Range Status 11/25/2023 08:17 AM 0.4 0.0 - 1.2 mg/dL Final Bilirubin, Direct Date/Time Value Ref Range Status 11/22/2023 06:48 PM 0.1 0.0 - 0.3 mg/dL Final GGT Date/Time Value Ref Range Status 11/22/2023 06:48 PM 62 5 - 64 U/L Final Albumin Date/Time Value Ref Range Status 11/25/2023 08:17 AM 3.9 3.4 - 5.0 g/dL Final Total Protein Date/Time Value Ref Range Status 11/25/2023 08:17 AM 7.5 6.4 - 8.2 g/dL Final Coagulation Parameters Protime Date/Time Value Ref Range Status 11/22/2023 06:48 PM 11.9 9.8 - 12.8 seconds Final INR Date/Time Value Ref Range Status 11/22/2023 06:48 PM 1.1 0.9 - 1.1 Final Diabetes Laboratory Tests POC HEMOGLOBIN A1c Date/Time Value Ref Range Status 09/19/2023 02:49 PM 10.0 (A) 4.2 - 6.5 % Final Hemoglobin A1C Date/Time Value Ref Range Status 11/22/2023 06:48 PM 9.7 (H) see below % Final Albumin/Creatine Ratio Date/Time Value Ref Range Status 04/24/2023 10:19 AM 43.7 (H) <30.0 ug/mg Creat Final Immunology Laboratory Tests IgE Date/Time Value Ref Range Status 11/22/2023 06:48 PM 14 0 - 214 IU/mL Final Recent Imaging No results found for this or any previous visit from the past [address] chest wo IV contrast 09/18/2023 Narrative Interpreted By: Melanie Mejía and Meyers Emily STUDY: CT CHEST WO IV CONTRAST; 09/18/2023 1:34 pm INDICATION: Signs/Symptoms:Pt grew AFB. Per medical record: 38-year-old male with history of cystic fibrosis. Presenting with tachypnea leukocytosis, and scattered infiltrates on chest radiograph. Sputum cultures positive for acid-fast bacilli. COMPARISON: CT abdomen pelvis 08/31/2011 ACCESSION NUMBER(S): [id number] ORDERING CLINICIAN: CARMELITA WATERS TECHNIQUE: Helical data [...] osseous pathology.There are no suspicious osseous lesions. Impression 1. Nonspecific apical predominant peribronchial nodularity with [...] stated above. This study was interpreted at [place], [place]. Signed by: Melanie Mejía 09/19/2023 4:54 PM Dictation workstation: [id number] CF Sputum Culture AFB Culture Date Value Ref Range Status 11/20/2023 Isolated: Acid Fast Bacilli (A) Preliminary 10/01/2023 Mycobacterium abscessus (A) Final Comment: For antibiotic susceptibility results see Specimen # - [id number] 09/18/2023 10/01/2023 Mycobacterium abscessus (A) Final Comment: For antibiotic susceptibility results see Specimen # - [id number] 09/18/2023 09/18/2023 Isolated: Mycobacterium abscessus (A) Final 09/18/2023 Isolated: Mycobacterium abscessus (A) Corrected Comment: This is an appended report. These results have been appended to a previously final verified report. Respiratory Culture, Cystic Fibrosis Date/Time Value Ref Range Status 11/22/2023 09:19 PM (2+) Few Normal throat mariza Preliminary 11/22/2023 09:19 PM (2+) Few Staphylococcus aureus (A) Preliminary 11/20/2023 01:37 PM (3+) Moderate Normal throat mariza Final 11/20/2023 01:37 PM (A) Final (2+) Few Methicillin Resistant Staphylococcus aureus (MRSA) Comment: Methicillin (Oxacillin) resistant Staphylococci are resistant to all currently available Penicillins, Beta-lactam/Beta-lactamase inhibitor combinations (including Ampicillin/Sulbactam, Amoxicillin/Clavulanate and Pipercillin/Tazobactam), Carbapenems and Cephalosporins (except Ceftaroline). 10/01/2023 01:45 PM (A) Final (1+) Rare Methicillin Resistant Staphylococcus aureus (MRSA) Comment: Methicillin (Oxacillin) resistant Staphylococci are resistant to all currently available Penicillins, Beta-lactam/Beta-lactamase inhibitor combinations (including Ampicillin/Sulbactam, Amoxicillin/Clavulanate and Pipercillin/Tazobactam), Carbapenems and Cephalosporins (except Ceftaroline). 10/01/2023 01:45 PM (1+) Rare Normal throat mariza Final Susceptibility data from last 90 days. Collected Specimen Info Organism Amikacin Cefoxitin Ciprofloxacin Clarithromycin Clindamycin Clofazimine Doxycycline Ertapenem 11/22/23 Fluid from SPUTUM Staphylococcus aureus Normal throat mariza 11/20/23 Fluid from SPUTUM Levar glabrata Levar dubliniensis 11/20/23 Fluid from SPUTUM Acid Fast Bacilli 11/20/23 Fluid from SPUTUM Methicillin Resistant Staphylococcus aureus (MRSA) S Normal throat mariza 10/01/23 Fluid from TRACHEAL WASH Mycobacterium abscessus 10/01/23 Fluid from TRACHEAL WASH Methicillin Resistant Staphylococcus aureus (MRSA) S 10/01/23 Fluid from BAL Methicillin Resistant Staphylococcus aureus (MRSA) S Normal throat mariza 10/01/23 Fluid from BAL Mycobacterium abscessus 09/18/23 Fluid from SPUTUM Methicillin Resistant Staphylococcus aureus (MRSA) S Normal throat mariza 09/18/23 Fluid from SPUTUM Levar albicans 09/18/23 Fluid from SPUTUM Mycobacterium abscessus (2) S I R S No interpret R No interpret Mycobacterium abscessus (1) S I R S No interpret R No interpret Collected Specimen Info Organism Erythromycin Imipenem Linezolid Meropenem Moxifloxacin Oxacillin Tetracycline Tigecycline 11/22/23 Fluid from SPUTUM Staphylococcus aureus Normal throat mariza 11/20/23 Fluid from SPUTUM Levar glabrata Levar dubliniensis 11/20/23 Fluid from SPUTUM Acid Fast Bacilli 11/20/23 Fluid from SPUTUM Methicillin Resistant Staphylococcus aureus (MRSA) R R S Normal throat mariza 10/01/23 Fluid from TRACHEAL WASH Mycobacterium abscessus 10/01/23 Fluid from TRACHEAL WASH Methicillin Resistant Staphylococcus aureus (MRSA) R R S 10/01/23 Fluid from BAL Methicillin Resistant Staphylococcus aureus (MRSA) R R S Normal throat mariza 10/01/23 Fluid from BAL Mycobacterium abscessus 09/18/23 Fluid from SPUTUM Methicillin Resistant Staphylococcus aureus (MRSA) R R S Normal throat mariza 09/18/23 Fluid from SPUTUM Levar albicans 09/18/23 Fluid from SPUTUM Mycobacterium abscessus (2) S I R R No interpret Mycobacterium abscessus (1) S S No interpret I No interpret Collected Specimen Info Organism Trimethoprim/Sulfamethoxazole Vancomycin 11/22/23 Fluid from SPUTUM Staphylococcus aureus Normal throat mariza 11/20/23 Fluid from SPUTUM Levar glabrata Levar dubliniensis 11/20/23 Fluid from SPUTUM Acid Fast Bacilli 11/20/23 Fluid from SPUTUM Methicillin Resistant Staphylococcus aureus (MRSA) S S Normal throat mariza 10/01/23 Fluid from TRACHEAL WASH Mycobacterium abscessus 10/01/23 Fluid from TRACHEAL WASH Methicillin Resistant Staphylococcus aureus (MRSA) S S 10/01/23 Fluid from BAL Methicillin Resistant Staphylococcus aureus (MRSA) S S Normal throat mariza 10/01/23 Fluid from BAL Mycobacterium abscessus 09/18/23 Fluid from SPUTUM Methicillin Resistant Staphylococcus aureus (MRSA) S S Normal throat mariza 09/18/23 Fluid from SPUTUM Levar albicans 09/18/23 Fluid from SPUTUM Mycobacterium abscessus (2) R Mycobacterium abscessus (1) R Assessment and Plan / Recommendations Bravo is a 38 y/o male with a history of cystic fibrosis who is admitted for a CF pulmonary exacerbation. # Cystic Fibrosis with severe exacerbation - Baseline FEV1 104% down to 66% upon admission - Resume Trikafta at full dose - All recent cultures have shown Staph - has history of growing Burkholderia (years ago) - no pseudomonas in any cultures that I can find - IV antibiotics: Ceftazidime 2 g IV q8, Vanco per pharmacy dosing - No indication for Colistin - Please hold Trikafta for now, may be able to restart on Saturday but please monitor LFTs daily for now. He was receiving double the recommended daily dose. Hold the night ivacaftor as well. - Albuterol, Symbicort - HTS twice a day - Dornase - please start this as well - Inhaled ABX: none - Airway Clearance: Vest # 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 - Avoid macrolides inpatient - the treatment of NTM in cystic fibrosis starts with treating the underlying exacerbation. - Patient will need a CT - would recommend getting this toward the end of the hospital stay when the current exacerbation is resolved - I would not currently consult ID as they normally defer NTM treatment in CF to us, Dr. Waters can re-assess this as needed. Will defer to primary team - if they feel strongly they want to consult, we can say what ID has to say. # CFRD - inpatient consult to endocrinology # Exocrine Pancreatic insufficiency - Continue Enzymes # Cirrhosis # Tobacco cessation - will need to re-address # SVT - has had episodes of SVT - consider cardiology consult if occurs while hospitalized SADIA Crespo 11/25/2023 10:32 PM Patient discussed with the [facility] team today. A multidisciplinary cystic fibrosis team meeting has taken place today to discuss this patient's care. Thank you for the consult. The CF team will continue to follow closely. From 8 AM to 5 PM on Saturday through Saturday, please contact Kapil Covarrubias CNP for any CF needs. From 5 PM to 8 AM on Saturday-Saturday, please contact Jaleesa Allan MD, PhD for any CF needs. Physical Therapy Physical Therapy Evaluation & Treatment Patient Name: Bravo Hull Today's Date: 11/25/2023 Time Calculation Start Time: 1515 Stop Time: 1600 Time Calculation (min): 45 min Assessment/Plan PT Assessment PT Assessment Results: Decreased strength, Decreased range of motion, Decreased endurance, Impaired balance, Decreased mobility Rehab Prognosis: Good Evaluation/Treatment Tolerance: Patient tolerated treatment well Medical Staff Made Aware: Yes End of Session Communication: Bedside nurse End of Session Patient Position: Bed, 2 rail up, Alarm off, not on at start of session IP OR SWING BED PT PLAN Inpatient or Swing Bed: Inpatient PT Plan Treatment/Interventions: Gait training, Stair training, Balance training, Strengthening, Endurance training PT Plan: Skilled PT PT Frequency: 3 times per week PT Discharge Recommendations: No PT needed after discharge PT Recommended Transfer Status: Independent PT - OK to Discharge: Yes (pending CF team clearance) Bravo was seen today for a PT evaluation. FEV1 down from baseline (normally 104%, now at 66%). Has been off Trikafta since May 2023. Bravo wants to put on muscle mass and gain weight, along with improving endurance. Pleasant and agreeable to work with PT. Reason for Referral CF pulmonary exacerbation Patient/Family/Caregiver Comments/Observations General Observations of Patient Admission FEV1: 66%, Baseline FEV1 104%, BMI 22.2 Pertinent History of Current Functional Problem CF (MSSA, MRSA, NTM (M. 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 Has chronic R knee pain due to old meniscus injury. Shares household duties with gf, but she does most of the cooking/cleaning/grocery shopping due to his long work hours. Currently able to walk approx 1/2 mile before needing a break. Has had decr in exercise tolerance with drop in FEV1 along with being off trikafta. Living Arrangements house Lives With Girlfrienhang Clemente Home Accessibility All one level Type of Equipment Currently In the Home Airway clearance: [employer]lovest will be re starting 2x/day (had not been using at home due to busy work schedule) Line and Tubes PIV O2 Delivery room air Pre Treatment Patient Position Sitting EOB Pre Treatment Heart Rate (beats/min) 111 Pre Treatment SpO2 (%) 97% During Treatment Patient Position Exercise and STS test During Treatment Heart Rate (beats/min) 149 (max HR) on the bike During Treatment SpO2 (%) Lowest spO2 97% During Treatment Oxygen Delivery room air During Treatment Comments max HR, min O2 during ther ex/ambulation Post Treatment Patient Position sitting Post Treatment Heart Rate (beats/min) 110 Post Treatment SpO2 (%) 97% Post Treatment Oxygen Delivery room air Vision/Cognition: Affect/Mental Status (Cognitive) WFL Orientation Status (Cognition) oriented x 3 Able to Follow Commands (Receptive) WFL ROM: Head/Neck/Trunk: Range of Motion increased thoracic kyphosis, increased forward head posture (not fixed) Upper Extremity: Range of Motion left upper extremity ROM WFL; right upper extremity ROM WFL Lower Extremity: Range of Motion left lower extremity ROM WFL; right lower extremity ROM WFL; 90-90 , L LE lacking 15 deg knee ext, R LE lacking 15 deg knee ext. Incr tightness noted B/L hamstrings MMT: Upper Extremity: Manual Muscle Testing (MMT) left upper extremity strength WFL; right upper extremity strength WFL Lower Extremity: Manual Muscle Testing (MMT) 5/5 B LE throughout Mobility/Tone: Transfer Assessment/Interventions sit to stand transfer; stand to sit transfer Sit-Stand [place] (Transfers) independent Stand-Sit [place] (Transfers) independent Gait/Stairs Locomotion gait/ambulation independence; gait/ambulation assistive device; distance ambulated; gait pattern utilized; gait deviations Gait Locomotion (Gait) supervision; HR / O2 monitoring Distance in Feet (Gait Training) 200 ft x 2 (to/from exercise room) Gait Pattern Utilized (Gait) swing-through gait Impairments Impacting Function (Mobility) endurance/activity tolerance; shortness of breath Pain 0/10 Functional Endurance/ Exercise 1)Pt used recumbent bike x 10 min Level 6-10 Rpm 50-60 HR max 149, spO2 min 98% on room air RPD 4/10, RPE 14/20 2)T band row x 12, 2 sets 3)T band B shoulder horiz abd x 12, 2 sets 4)PT assisted in the following stretches -B hamstring x 45 sec, 2 sets ea -B hip flex x 45 sec, 2 sets ea -B figure 4 in supine x 45 sec, 2 sets ea Health: Observed Emotional State calm; cooperative; pleasant Plan of Care Reviewed With patient Outcome measures: 1 min sit to stand, from lowest bed height, no UE assist 40x HR 128 bpm, spo2 97% RPD 3/10, RPE 13/20 Outcomes Tools: Turning from your back to your side while in a flat bed without using bedrails none Moving from lying on your back to sitting on the side of a flat bed without using bedrails none Moving to and from bed to chair (including a wheelchair) none Standing up from a chair using your arms (e.g. wheelchair or bedside chair) none Climbing 3-5 steps with railing a little Encounter Problems Encounter Problems (Active) PT Problem Pt will perform a 6MWT, with distance greater than 1350 ft with stable vitals, RPD 3/10 or less, RPE 13/20 or less. Start: 11/26/23 Expected End: 12/16/23 pt will complete a 1 min STS: greater than 44x, RPD 3/10 or less, RPE 13/20 or less Start: 11/26/23 Expected End: 12/16/23 pt will negotiate 1 flight of stairs for improved community mobility and for work environment, RPD 3/10 or less, RPE 13/20 or less Start: 11/26/23 Expected End: 12/16/23 pt will participate in 30 min of continuous activity/exercise with minimal breaks and stable vitals Start: 11/26/23 Expected End: 12/16/23 Education Documentation Mobility Training, taught by Shawanda Morejon PT at 11/25/2023 10:54 AM. Learner: Patient Readiness: Acceptance Method: Explanation Response: Verbalizes Understanding Comment: exercises to perform today, plan of care while IP Education Comments No comments found. Bravo Hull is a 38 y.o. male on day 3 of admission presenting with Cystic fibrosis (Multi). Subjective Patient seen this morning, has no complaints. Says he feel better, denies worsening cough, f/c. Having regular Bms. Denies palpitations. Objective Last Recorded Vitals Blood pressure 124/70, pulse 92, temperature 36.5 C (97.7 F), resp. rate 16, height 1.829 m (6'), weight 74.4 kg (164 lb), SpO2 92%. Intake/Output last 3 Shifts: I/O last 3 completed shifts: In: 50 (0.7 mL/kg) [I.V.:50 (0.7 mL/kg)] Out: - (0 mL/kg) Weight: 74.4 kg Physical Exam GEN: A&Ox3, no acute distress, appears comfortable. CARDIO: Normal rate and regular rhythm. No murmurs, rubs, or gallops. PULM: LCTAB, no accessory muscle use NEURO: Cranial nerves II-XII grossly intact. PSYCH: Appropriate mood and behavior, converses and responds appropriately during exam Relevant Results Labs Results from last 7 days Lab Units 11/22/23 1848 WBC AUTO x10*3/uL 10.8 HEMOGLOBIN g/dL 15.2 HEMATOCRIT % 48.6 PLATELETS AUTO x10*3/uL 261 Results from last 7 days Lab Units 11/24/23 0450 11/22/23 1848 SODIUM mmol/L 135* 135* POTASSIUM mmol/L 4.4 4.4 CHLORIDE mmol/L 102 101 CO2 mmol/L 24 27 BUN mg/dL 19 11 CREATININE mg/dL 0.81 0.96 CALCIUM mg/dL 8.8 8.8 Results from last 7 days Lab Units 11/24/23 0450 11/22/23 1848 ALK PHOS U/L 133* 136* BILIRUBIN TOTAL mg/dL 0.4 0.6 BILIRUBIN DIRECT mg/dL -- 0.1 PROTEIN TOTAL g/dL 6.7 7.2 ALT U/L 32 23 AST U/L 36 20 Results from last 7 days Lab Units 11/22/23 1848 APTT seconds 30 INR 1.1 Medications Scheduled medications busPIRone, 5 mg, oral, BID cefTAZidime, 2 g, intravenous, q8h cholecalciferol, 5,000 Units, oral, Daily dornase Alpha, 2.5 mg, nebulization, Daily vmsvknwhlab-dytrkwvuzq-yfftuuvll , 2 tablet, oral, BID enoxaparin, 40 mg, subcutaneous, Daily fluticasone furoate-vilanteroL, 1 puff, inhalation, Daily insulin glargine, 25 Units, subcutaneous, q24h insulin lispro, 0-5 Units, subcutaneous, TID insulin lispro, 5 Units, subcutaneous, TID lstpln-bprcggdt-knkdbvj, 3 capsule, oral, TID mirtazapine, 15 mg, oral, Nightly multivit with minerals-folic acid-criss K-CoQ, 1 capsule, oral, Daily sodium chloride, 3 mL, nebulization, q12h vancomycin, 1,000 mg, intravenous, q12h Continuous medications PRN medications PRN medications: albuterol, albuterol, dextrose, dextrose, glucagon, glucagon, vancomycin Imaging No orders to display Assessment/Plan Principal Problem: Cystic fibrosis (Multi) 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 Patient has not been taking any medications for the last 1 month and has not been taking Trikafta since May 2023. He also is currently in a CF exacerbation with a decrease in his FEV1 from 104% (04/2023) to now 66% (11/2023) with decreased weight in the setting of poor p.o. intake, chronic lung disease, lack of insulin therapy. Most recent labs from 2022 did not indicate ABPA though IgE and CBC with differential should be repeated in the patient. Dr. Waters discussed at length the concern with this significant decrease in his FEV1 over the last 7 months and the need to focus on his treatment therapy aggressively in order to gain recovery. He is agreeable to inpatient admission for CF exacerbation, diabetes management. Updates 11/24: - continue Glargine to 25 U at bedtime; lipsro 8u with meals, SSI - Plan to consult endocrine today, appreciate recs - Continue with current abx regimen (vanc, ceftaz; stopped colistin per Dr. Allan) - No need to treat NTM for now, treating exacerbation and will reassess; discussed this with Dr. Alcantara, Mycobacterium treatment can be done in the future, and penitentiary compliance with medication regimen will need to be ensured - CT scan when exacerbation is resolved #Cystic Fibrosis exacerbation (N/dF508;MYC0=730->88%-> 66% ) ::Previously BAL cultures grew MRSA, M. Abscessus 09/28 - Modulator: START Trikafta - Bronchodilators: Albuterol PRN, breo - HTS: 7% BID - Dornase: ordered - Inhaled ABX: none - Airway Clearance: Vest TID - Antibiotics: -IV ceftazidime 2g q8hrs -IV vanc pharmacy to dose -Avoid macrolides given NTM -Fu respiratory cultures obtained in clinic, currently growing MRSA and levar #hx of SVT s/p adenosine -monitor for symptoms -consider metop for suppression if HR tolerates -Should follow up with EP outpatient for consideration of ablation #CFRD ::Patient reports being on 25u lantus BID and 8u humalog with meals +SSI at home -A1c 9.7 on admission - IContinue lantus 25U at night 8u lispro TID with meals, up titrate as needed pending endo recs -SSI #1 -Consult endocrine today, appreciate recs #Exocrine Pancreatic insufficiency -continue zenPEP with meals #Cirrhosis - Follows with Dr. Briceño with GI - LFTs normal, well compensated on exam F: PRN E: PRN N: Regular Diet A: pIV DVT ppx: Lovenox GI ppx: Not indicated CODE STATUS: Full Code (confirmed on admission) Surrogate Decision Maker: Sister Alice Damon Case seen and discussed with attending Dr. Prado, to addend as necessary. Marquise Mensah MD Associated attestation - Melanie Prado DO - 11/26/2023 1:02 PM EDT I saw and evaluated the patient. I personally obtained the bunn and critical portions of the history and physical exam or was physically present for bunn and critical portions performed by the resident/fellow. I reviewed the resident/fellow's documentation and discussed the patient with the resident/fellow. I agree with the resident/fellow's medical decision making as documented in the note. Bravo Hull is a 38 y.o. male on day 2 of admission presenting with Cystic fibrosis (Multi). Subjective Patient seen this morning, has no complaints. Still has cough with productive sputum. Otherwise denies f/c, SOB, chest pain. Objective Last Recorded Vitals Blood pressure 127/86, pulse 91, temperature 36.6 C (97.9 F), temperature source Temporal, resp. rate 20, height 1.829 m (6'), weight 74.4 kg (164 lb). Intake/Output last 3 Shifts: No intake/output data recorded. Physical Exam GEN: A&Ox3, no acute distress, appears comfortable. CARDIO: Normal rate and regular rhythm. No murmurs, rubs, or gallops. PULM: LCTAB, no accessory muscle use NEURO: Cranial nerves II-XII grossly intact. PSYCH: Appropriate mood and behavior, converses and responds appropriately during exam Relevant Results Labs Results from last 7 days Lab Units 11/22/23 1848 WBC AUTO x10*3/uL 10.8 HEMOGLOBIN g/dL 15.2 HEMATOCRIT % 48.6 PLATELETS AUTO x10*3/uL 261 Results from last 7 days Lab Units 11/24/23 0450 11/22/23 1848 SODIUM mmol/L 135* 135* POTASSIUM mmol/L 4.4 4.4 CHLORIDE mmol/L 102 101 CO2 mmol/L 24 27 BUN mg/dL 19 11 CREATININE mg/dL 0.81 0.96 CALCIUM mg/dL 8.8 8.8 Results from last 7 days Lab Units 11/24/23 0450 11/22/23 1848 ALK PHOS U/L 133* 136* BILIRUBIN TOTAL mg/dL 0.4 0.6 BILIRUBIN DIRECT mg/dL -- 0.1 PROTEIN TOTAL g/dL 6.7 7.2 ALT U/L 32 23 AST U/L 36 20 Results from last 7 days Lab Units 11/22/23 1848 APTT seconds 30 INR 1.1 Medications Scheduled medications busPIRone, 5 mg, oral, BID cefTAZidime, 2 g, intravenous, q8h cholecalciferol, 5,000 Units, oral, Daily pjwsivnsmrm-ddioxpzevn-xtqdhdl, 2 tablet, oral, BID enoxaparin, 40 mg, subcutaneous, Daily fluticasone furoate-vilanteroL, 1 puff, inhalation, Daily insulin glargine, 25 Units, subcutaneous, q24h insulin lispro, 0-5 Units, subcutaneous, TID insulin lispro, 5 Units, subcutaneous, TID aklkxi-cxvbssbj-pcvctao, 3 capsule, oral, TID mirtazapine, 15 mg, oral, Nightly multivit with minerals-folic acid-criss K-CoQ, 1 capsule, oral, Daily sodium chloride, 3 mL, nebulization, q12h vancomycin, 1,000 mg, intravenous, q12h Continuous medications PRN medications PRN medications: albuterol, albuterol, dextrose, dextrose, glucagon, glucagon, vancomycin Imaging No orders to display Assessment/Plan Principal Problem: Cystic fibrosis (Multi) 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 Patient has not been taking any medications for the last 1 month and has not been taking Trikafta since May 2023. He also is currently in a CF exacerbation with a decrease in his FEV1 from 104% (04/2023) to now 66% (11/2023) with decreased weight in the setting of poor p.o. intake, chronic lung disease, lack of insulin therapy. Most recent labs from 2022 did not indicate ABPA though IgE and CBC with differential should be repeated in the patient. Dr. Waters discussed at length the concern with this significant decrease in his FEV1 over the last 7 months and the need to focus on his treatment therapy aggressively in order to gain recovery. He is agreeable to inpatient admission for CF exacerbation, diabetes management. Updates 11/23: - continue Glargine to 25 U at bedtime; (BG elevated on AM RFP but within range on AM fingerstick check) - Consult endocrine tomorrow Saturday - Continue with current abx regimen (vanc, ceftaz; stopped colistin per Dr. Alcantara) - started Dornase Alpha - No need to treat NTM for now, treating exacerbation and will reassess; discussed this with Dr. Alcantara, Mycobacterium treatment can be done in the future, and penitentiary compliance with medication regimen will need to be ensured - CT scan when exacerbation is resolved #Cystic Fibrosis exacerbation (N/dF508;WMA7=302->88%-> 66% ) ::Previously BAL cultures grew MRSA, M. Abscessus 09/28 - Modulator: START Trikafta - Bronchodilators: Albuterol PRN, breo - HTS: 7% BID - Dornase: ordered - Inhaled ABX: none - Airway Clearance: Vest TID - Antibiotics: -IV ceftazidime 2g q8hrs -IV vanc pharmacy to dose -Avoid macrolides given NTM -Fu respiratory cultures obtained in clinic, currently growing MRSA and levar #hx of SVT s/p adenosine -fu admission EKG -monitor for symptoms -consider metop for suppression if HR tolerates -Should follow up with EP outpatient for consideration of ablation #CFRD ::Patient reports being on 25u lantus BID and 8u humalog with meals +SSI at home -A1c 9.7 on admission - IContinue lantus 25U at night 5u lispro TID with meals, up titrate as needed pending endo recs -SSI #1 -Consult endocrine Saturday #Exocrine Pancreatic insufficiency -continue zenPEP with meals #Cirrhosis - Follows with Dr. Briceño with GI - LFTs normal, well compensated on exam F: PRN E: PRN N: Regular Diet A: pIV DVT ppx: Lovenox GI ppx: Not indicated CODE STATUS: Full Code (confirmed on admission) Surrogate Decision Maker: Sister Alice Damon Case seen and discussed with attending Dr. Small, to addend as necessary. Rosalio Dahl MD Associated attestation - Madeleine Small MD - 11/27/2023 12:57 AM EDT I saw and evaluated the patient on 11/24/2023. I personally obtained the bunn and critical portions of the history and physical exam or was physically present for bunn and critical portions performed by the resident/fellow. I reviewed the resident/fellow's documentation and discussed the patient with the resident/fellow. I agree with the resident/fellow's medical decision making as documented in the note. Vancomycin Dosing by Pharmacy FOLLOW UP Bravo A Della is a 38 y.o. male who Pharmacy is consulted to dose vancomycin for pneumonia. Based on the patient's indication and renal status, this patient is being dosed based on a goal vancomycin AUC of 400-600. Current vancomycin dose: 1000 mg every 12 hours Estimated vancomycin AUC on current dose: 416 mg/L.hr Renal function is currently stable. Estimated Creatinine Clearance: 108.7 mL/min (by C-G formula based on SCr of 0.96 mg/dL). Vancomycin Date Value Ref Range Status 11/23/2023 11.9 5.0 - 20.0 ug/mL Final Results from last 7 days Lab Units 11/22/23 1848 CREATININE mg/dL 0.96 BUN mg/dL 11 WBC AUTO x10*3/uL 10.8 Visit Vitals BP 127/86 (Patient Position: Lying) Pulse 91 Temp 36.6 C (97.9 F) (Temporal) Resp 20 Gram Stain Date/Time Value Ref Range Status 10/01/2023 02:11 PM (3+) Moderate Polymorphonuclear leukocytes (A) Final 10/01/2023 02:11 PM (3+) Moderate Gram positive cocci (A) Final Assessment/Plan AUC is within goal range. Continue current vancomycin regimen. This dosing regimen is predicted by [employer] to result in the following pharmacokinetic parameters: Loading dose: N/A Regimen: 1000 mg IV every 12 hours. Start time: 14:22 on 11/23/2023 Exposure target: AUC24 (range)400-600 mg/L.hr AUC24,ss: 416 mg/L.hr Probability of AUC24 > 400: 56 % Ctrough,ss: 13.7 mg/L Probability of Ctrough,ss > 20: 18 % Probability of nephrotoxicity (Lodise MALVIN 2008): 9 % The next vancomycin level will be ordered for 11/25 with mid AM labs, unless clinically indicated sooner. Will continue to monitor renal function daily while on vancomycin and order serum creatinine at least every 48 hours if not already ordered. Will follow for continued vancomycin needs, clinical response, and signs/symptoms of toxicity. Marlin Mulligan RPh Bravo Hull is a 38 y.o. male on day 1 of admission presenting with Cystic fibrosis (Multi). I saw him this morning and talked about his care. My charting was delayed until this evening due to Subjective Patient is well known to me. Patient with increased sputum, cough, weight loss, and non-adherence to his CF regimen due to insurance issues. Bravo's baseline weight, when taking his meds and lifting weights is 225 pounds. Today he is 160 pounds. This is the worst shape I've ever seen him. He lost his insurance and did not get Trikafta for some time. PMHx: Cirrhosis, CF related diabetes, pancreatic insufficiency, SVT, poor dentition Social: New job recently, has a girlfriend (Chyna), uses tobacco - did not discuss alcohol today Objective Last Recorded Vitals Blood pressure 127/86, pulse 91, temperature 36.6 C (97.9 F), temperature source Temporal, resp. rate 20, height 1.829 m (6'), weight 74.4 kg (164 lb). Intake/Output last 3 Shifts: No intake or output data in the 24 hours ending 11/23/232235 Physical Exam Awake, alert, sitting in bed Very thin, poor dentition, chewing tobacco Lung sounds decreased throughout, no wheezes or crackles on my exam No edema Relevant Results Results for orders placed or performed during the hospital encounter of 11/22/23 (from the past 96 hour(s)) CBC and Auto Differential Result Value Ref Range WBC 10.8 4.4 - 11.3 x10*3/uL nRBC 0.0 0.0 - 0.0 /100 WBCs RBC 5.56 4.50 - 5.90 x10*6/uL Hemoglobin 15.2 13.5 - 17.5 g/dL Hematocrit 48.6 41.0 - 52.0 % MCV 87 80 - 100 fL MCH 27.3 26.0 - 34.0 pg MCHC 31.3 (L) 32.0 - 36.0 g/dL RDW 13.0 11.5 - 14.5 % Platelets 261 150 - 450 x10*3/uL Neutrophils % 70.8 40.0 - 80.0 % Immature Granulocytes %, Automated 0.4 0.0 - 0.9 % Lymphocytes % 19.3 13.0 - 44.0 % Monocytes % 6.6 2.0 - 10.0 % Eosinophils % 2.4 0.0 - 6.0 % Basophils % 0.5 0.0 - 2.0 % Neutrophils Absolute 7.66 1.20 - 7.70 x10*3/uL Immature Granulocytes Absolute, Automated 0.04 0.00 - 0.70 x10*3/uL Lymphocytes Absolute 2.08 1.20 - 4.80 x10*3/uL Monocytes Absolute 0.71 0.10 - 1.00 x10*3/uL Eosinophils Absolute 0.26 0.00 - 0.70 x10*3/uL Basophils Absolute 0.05 0.00 - 0.10 x10*3/uL Gamma-Glutamyl Transferase Result Value Ref Range GGT 62 5 - 64 U/L Immunoglobulin IgE Result Value Ref Range IgE 14 0 - 214 IU/mL Hemoglobin A1C Result Value Ref Range Hemoglobin A1C 9.7 (H) see below % Estimated Average Glucose 232 Not Established mg/dL Magnesium Result Value Ref Range Magnesium 1.86 1.60 - 2.40 mg/dL Hepatic Function Panel Result Value Ref Range Albumin 4.0 3.4 - 5.0 g/dL Bilirubin, Total 0.6 0.0 - 1.2 mg/dL Bilirubin, Direct 0.1 0.0 - 0.3 mg/dL Alkaline Phosphatase 136 (H) 33 - 120 U/L ALT 23 10 - 52 U/L AST 20 9 - 39 U/L Total Protein 7.2 6.4 - 8.2 g/dL Coagulation Screen Result Value Ref Range Protime 11.9 9.8 - 12.8 seconds INR 1.1 0.9 - 1.1 aPTT 30 27 - 38 seconds Renal function panel Result Value Ref Range Glucose 165 (H) 74 - 99 mg/dL Sodium 135 (L) 136 - 145 mmol/L Potassium 4.4 3.5 - 5.3 mmol/L Chloride 101 98 - 107 mmol/L Bicarbonate 27 21 - 32 mmol/L Anion Gap 11 10 - 20 mmol/L Urea Nitrogen 11 6 - 23 mg/dL Creatinine 0.96 0.50 - 1.30 mg/dL eGFR >90 >60 mL/min/1.73m*2 Calcium 8.8 8.6 - 10.6 mg/dL Phosphorus 3.0 2.5 - 4.9 mg/dL Albumin 4.0 3.4 - 5.0 g/dL POCT GLUCOSE Result Value Ref Range POCT Glucose 258 (H) 74 - 99 mg/dL RSV PCR Result Value Ref Range RSV PCR Not Detected Not Detected Sars-CoV-2 PCR Result Value Ref Range Coronavirus 2019, PCR Not Detected Not Detected Influenza A, and B PCR Result Value Ref Range Flu A Result Not Detected Not Detected Flu B Result Not Detected Not Detected MRSA Surveillance for Vancomycin De-escalation, PCR Specimen: Anterior Nares; Swab Result Value Ref Range MRSA PCR Detected (A) Not Detected Urinalysis with Reflex Microscopic Result Value Ref Range Color, Urine Colorless (N) Light-Yellow, Yellow, Dark-Yellow Appearance, Urine Clear Clear Specific [place], Urine 1.008 1.005 - 1.035 pH, Urine 6.0 5.0, 5.5, 6.0, 6.5, 7.0, 7.5, 8.0 Protein, Urine NEGATIVE NEGATIVE, 10 (TRACE), 20 (TRACE) mg/dL Glucose, Urine 500 (3+) (A) Normal mg/dL Blood, Urine 0.06 (1+) (A) NEGATIVE Ketones, Urine NEGATIVE NEGATIVE mg/dL Bilirubin, Urine NEGATIVE NEGATIVE Urobilinogen, Urine Normal Normal mg/dL Nitrite, Urine NEGATIVE NEGATIVE Leukocyte Esterase, Urine NEGATIVE NEGATIVE Microscopic Only, Urine Result Value Ref Range WBC, Urine 1-5 1-5, NONE /HPF RBC, Urine 6-10 (A) NONE, 1-2, 3-5 /HPF Squamous Epithelial Cells, Urine 1-9 (SPARSE) Reference range not established. /HPF POCT GLUCOSE Result Value Ref Range POCT Glucose 129 (H) 74 - 99 mg/dL POCT GLUCOSE Result Value Ref Range POCT Glucose 356 (H) 74 - 99 mg/dL Vancomycin Result Value Ref Range Vancomycin 11.9 5.0 - 20.0 ug/mL POCT GLUCOSE Result Value Ref Range POCT Glucose 275 (H) 74 - 99 mg/dL POCT GLUCOSE Result Value Ref Range POCT Glucose 207 (H) 74 - 99 mg/dL Assessment/Plan Principal Problem: Cystic fibrosis (Multi) # Cystic Fibrosis with severe exacerbation - baseline FEV1 104% down to 66% upon admission - resume Trikafta at full dose - all recent cultures have shown Staph - has history of growing Burkholderia (years ago) - no pseudomonas in any cultures that I can find - IV antibiotics: Ceftazidime 2 g IV q8, Vanco per pharmacy dosing - I stopped the Colistin - there is no indication for this - check labs daily and consider IV fluids if creatinine is going up or if he isn't eating/drinking - Albuterol, Symbicort - HTS twice a day - Dornase - please start this as well - Inhaled ABX: none - Airway Clearance: Vest # 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 - Avoid macrolides inpatient - the treatment of NTM in cystic fibrosis starts with treating the underlying exacerbation. - Patient will need a CT - would recommend getting this toward the end of the hospital stay when the current exacerbation is resolved - I would not currently consult ID as they normally defer NTM treatment in CF to us, Dr. Waters can re-assess this as needed. Will defer to primary team - if they feel strongly they want to consult, we can say what ID has to say. # CFRD - inpatient consult to endocrinology # Exocrine Pancreatic insufficiency - Continue Enzymes # Cirrhosis # Tobacco cessation - will need to re-address # SVT - has had episodes of SVT - consider cardiology consult if occurs while hospitalized I am available to discuss patient at any time. Please call me when you are making changes or starting antibiotics. 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 Can consider stopping if culture negative for Burkholderia. I stopped the Colistin for now and asked the nurse to send me the name of the overnight record label intern so I can inform them of why I stopped the Colistin. I informed Beatriz Bailey that I stopped the colistin and to have the morning team call me when they round. Jaleesa Allan MD PhD Bravo Hull is a 38 y.o. male on day 1 of admission presenting with Cystic fibrosis (Multi). Subjective Patient seen this morning, has no complaints. Still has cough with productive sputum. Otherwise denies f/c, SOB, chest pain. Objective Last Recorded Vitals Blood pressure 127/86, pulse 91, temperature 36.6 C (97.9 F), temperature source Temporal, resp. rate 20, height 1.829 m (6'), weight 74.4 kg (164 lb). Intake/Output last 3 Shifts: No intake/output data recorded. Physical Exam Constitutional: General: He is not in acute distress. Appearance: Normal appearance. Comments: Cachetic HENT: Head: Normocephalic and atraumatic. Mouth/Throat: Mouth: Mucous membranes are moist. Pharynx: Oropharynx is clear. Eyes: Extraocular Movements: Extraocular movements intact. Conjunctiva/sclera: Conjunctivae normal. Pupils: Pupils are equal, round, and reactive to light. Cardiovascular: Rate and Rhythm: Normal rate and regular rhythm. Heart sounds: No murmur heard. No friction rub. No gallop. Pulmonary: Effort: Pulmonary effort is normal. No respiratory distress. Breath sounds: Normal breath sounds. No wheezing, rhonchi or rales. Abdominal: General: Abdomen is flat. Bowel sounds are normal. There is no distension. Palpations: Abdomen is soft. Tenderness: There is no abdominal tenderness. There is no guarding or rebound. Musculoskeletal: Right lower leg: No edema. Left lower leg: No edema. Skin: General: Skin is warm and dry. Neurological: General: No focal deficit present. Mental Status: He is alert and oriented to person, place, and time. Mental status is at baseline. Psychiatric: Mood and Affect: Mood normal. Behavior: Behavior normal. Relevant Results Labs Results from last 7 days Lab Units 11/22/23 1848 WBC AUTO x10*3/uL 10.8 HEMOGLOBIN g/dL 15.2 HEMATOCRIT % 48.6 PLATELETS AUTO x10*3/uL 261 Results from last 7 days Lab Units 11/22/23 1848 SODIUM mmol/L 135* POTASSIUM mmol/L 4.4 CHLORIDE mmol/L 101 CO2 mmol/L 27 BUN mg/dL 11 CREATININE mg/dL 0.96 CALCIUM mg/dL 8.8 Results from last 7 days Lab Units 11/22/23 1848 ALK PHOS U/L 136* BILIRUBIN TOTAL mg/dL 0.6 BILIRUBIN DIRECT mg/dL 0.1 PROTEIN TOTAL g/dL 7.2 ALT U/L 23 AST U/L 20 Results from last 7 days Lab Units 11/22/23 1848 APTT seconds 30 INR 1.1 Medications Scheduled medications busPIRone, 5 mg, oral, BID cefTAZidime, 2 g, intravenous, q8h cholecalciferol, 5,000 Units, oral, Daily colistimethate, 150 mg, intravenous, q8h rpudvfpiuun-bazacicyiw-oxstvwp, 2 tablet, oral, BID enoxaparin, 40 mg, subcutaneous, Daily fluticasone furoate-vilanteroL, 1 puff, inhalation, Daily insulin glargine, 25 Units, subcutaneous, q24h insulin lispro, 0-5 Units, subcutaneous, TID kukmsx-moknndoq-kwqmkkc, 3 capsule, oral, TID mirtazapine, 15 mg, oral, Nightly multivit with minerals-folic acid-criss K-CoQ, 1 capsule, oral, Daily sodium chloride, 3 mL, nebulization, q12h vancomycin, 1,000 mg, intravenous, q12h Continuous medications PRN medications PRN medications: albuterol, albuterol, dextrose, dextrose, glucagon, glucagon, vancomycin Imaging No orders to display Assessment/Plan Principal Problem: Cystic fibrosis (Multi) 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 Patient has not been taking any medications for the last 1 month and has not been taking Trikafta since May 2023. He also is currently in a CF exacerbation with a decrease in his FEV1 from 104% (04/2023) to now 66% (11/2023) with decreased weight in the setting of poor p.o. intake, chronic lung disease, lack of insulin therapy. Most recent labs from 2022 did not indicate ABPA though IgE and CBC with differential should be repeated in the patient. Dr. Waters discussed at length the concern with this significant decrease in his FEV1 over the last 7 months and the need to focus on his treatment therapy aggressively in order to gain recovery. He is agreeable to inpatient admission for CF exacerbation, diabetes management. Updates 11/22: -Added 5u lispro mealtime, continue lispro 25u daily and SSI -Plan to consult endocrine Saturday -Continue with current abx regimen (vanc, ceftaz, colistin) -Currently NTM is untreated, with touch base with CF team if further imaging is required and if/when treatment should be initiated #Cystic Fibrosis exacerbation (N/dF508;WZG0=712->88%-> 66% ) ::Previously BAL cultures grew MRSA, M. Abscessus 09/28 - Modulator: START Trikafta - Bronchodilators: Albuterol PRN, breo - HTS: 7% BID - Dornase: defer for now as re-initiating airway clearance - Inhaled ABX: none - Airway Clearance: Vest TID - Antibiotics: -IV colistin 150mg q8hrs -IV ceftazidime 2g q8hrs -IV vanc pharmacy to dose -Avoid macrolides given NTM -Fu respiratory cultures obtained in clinic, currently growing MRSA and levar #hx of SVT s/p adenosine -fu admission EKG -monitor for symptoms -consider metop for suppression if HR tolerates -Should follow up with EP outpatient for consideration of ablation #CFRD ::Patient reports being on 25u lantus BID and 8u humalog with meals +SSI at home -A1c 9.7 on admission -start lantus 25u at night 5u lispro TID with meals, up titrate as needed pending endo recs -SSI #1 -Consult endocrine Saturday #Exocrine Pancreatic insufficiency -continue zenPEP with meals #Cirrhosis - Follows with Dr. Briceño with GI - LFTs normal, well compensated on exam F: PRN E: PRN N: Regular Diet A: pIV DVT ppx: Lovenox GI ppx: Not indicated CODE STATUS: Full Code (confirmed on admission) Surrogate Decision Maker: Sister Alice Damon Case seen and discussed with attending Dr. Small, to addend as necessary. Marquise Mensah MD PGY-1 Associated attestation - Madeleine Small MD - 11/24/2023 6:49 AM EDT I saw and evaluated the patient. I personally obtained the bunn and critical portions of the history and physical exam or was physically present for bunn and critical portions performed by the resident/fellow. I reviewed the resident/fellow's documentation and discussed the patient with the resident/fellow. A 38 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 History of non compliance to trikafta and bactrum due to insurance issue Admitted with CF exacerbation Start Cefta and colistin and vancomycin Restart trikafta CT chest 05/2023, tree on bud and bronchiectasis Restart bactrum Airway clearance Consider CT chest to check on radiological infiltrate progression Consider treatment of atypical mycobacterium Other medical problems; SVT CFRD Pancreatic insufficieny cirrhosis Vancomycin Dosing by Pharmacy- INITIAL Bravo Hull is a 38 y.o. year old male who Pharmacy has been consulted for vancomycin dosing for pneumonia. Based on the patient's indication and renal status this patient will be dosed based on a goal AUC of 400-600. Renal function is currently stable (per care everywhere records) Visit Vitals BP 127/86 (Patient Position: Lying) Pulse 91 Temp 36.6 C (97.9 F) (Temporal) Resp 20 Lab Results Component Value Date CREATININE 0.88 04/24/2023 CREATININE 0.95 10/04/2021 CREATININE 0.90 03/09/2020 CREATININE 0.71 08/07/2018 CREATININE 0.78 08/04/2018 Patient weight is 84.4 kg No results found for: CULTURE No intake/output data recorded. @IOTHISSHIFT@ No results found for: PATIENTTEMP Assessment/Plan Patient will be given a loading dose of 1750 mg. Will initiate vancomycin maintenance, 1000 mg every 12 hours. This dosing regimen is predicted by [employer] to result in the following pharmacokinetic parameters: Loading dose: 1750 mg at 18:00 11/22/2023. Regimen: 1000 mg IV every 12 hours. Start time: 06:00 on 11/23/2023 Exposure target: AUC24 (range)400-600 mg/L.hr AUC24,ss: 463 mg/L.hr Probability of AUC24 > 400: 65 % Ctrough,ss: 14 mg/L Probability of Ctrough,ss > 20: 23 % Probability of nephrotoxicity (Lodise MALVIN 2008): 9 % Follow-up level will be ordered on 11/22 at 1000 unless clinically indicated sooner. Will continue to monitor renal function daily while on vancomycin and order serum creatinine at least every 48 hours if not already ordered. Follow for continued vancomycin needs, clinical response, and signs/symptoms of toxicity. López Andrea PharmD documented in this encounter [facility] Work Phone: 11-29-2023 Note Formatting of this n ote might be different from the original. RT at BS, patient meds droped off. Patient requesting to do all therapies and meds independently. [facility] 11-29-2023 Hospital Discharge instructions Rosalio Dahl MD - 11/29/2023 9:51 AM EDT You were admitted to the hospital for a cystic fibrosis exacerbation. You received IV antibiotics and were restarted on Trikafta however your liver tests worsened so this was stopped. You had pulmonary function testing which showed an increase almost back to normal and your symptoms have improved. Please follow up with your cystic fibrosis doctor upon discharge. We have also ordered blood work to monitor your liver function which you should get done sometime next week (week of 12/01). You CF doctor will decide when it is safe to resume your Trikafta. Also, please call to schedule outpatient CT scan; 12/17 might be reasonable as you have an appointment with Kapil that day anyway. We have adjusted your insulin dosing while you were in the hospital. Please take the insulin according to the instructions given to you on discharge and as modified by your outpatient doctor. Please go to the lab next week and have blood drawn so that your outpatient doctors can follow your blood work. The order is in, you can go to any lab to have this done. Remember to take all your medications as prescribed and attend your follow up appointments. Do not hesitate to return to the hospital if you experience any worsening cough, sputum production, fevers, or abdominal pain. documented in this encounter [facility] Work Phone: 11-28-2023 Nurse Note PICC Insertion Pre-Procedure Checklist: Emergent Line Insertion: No Type of Line to be Placed: PICC Consent Obtained: Yes Emergency Medication Necessary: No Patient Identified with 2 Independent Identifiers: Yes Review of Allergies, Anticoagulation, Relevant Labs, ECG/Telemetry: Yes Risks/Benefits/Alternatives Discussed with Patient/POA/Legal Nanny/Household Manager: Yes Stop Sign on Door: Yes Time Out Performed: Yes Catheter Exchange: No Positioning Checklist: All People, Including Patient, in the Room with Cap and Mask: Yes Fluoroscopy Used to Identify Vessel and Guide Insertion: No Sterile Cover Used: Yes Full Barrier Precautions Followed (Mask, Cap, Gown, Gloves): Yes Hands Washed: Yes Monitors Attached with Sound Alarms On: No Full Body Sterile Drape (Head-to-Toe) Used to Cover Patient: Yes Trendelenburg Position (For IJ and Subclavian): N/A CHG Skin Prep Used and Allowed to Air Dry to Skin Procedure: Yes Procedure Checklist: Blood Aspirated From All Lumens, All Ports Subsequently Flushed: Yes Catheter Caps Placed on All Lumens; Lumens Clamped: Yes Maintain Guidewire Control Throughout, Ensuring Guidewire Removal: Yes Maintain Sterile Field Throughout Insertion: Yes Catheter Secured: Yes Confirmatory Test of Venous Placement: Non-Pulsatile Blood Post Procedure Checklist: Date and Time Written on Dressing: Yes Sharp and Wire Count and Safe Disposal of all Sharps/Wires: Yes Sterile Dressing Applied Per Protocol: Yes X-ray Ordered or ECG Image: Yes PICC Insertion Details: Size (Fr): 4 Lumen Type: Single Catheter to Vein Ratio Less Than 50%: Yes Total Length (cm): 47 External Length (cm): 1 Orientation: Left Location: Basilic Vein Site Prep: Chlorohexidine; Usual sterile procedure followed Local Anesthetic: Injectable/Subcutaneous Indication: Abx Insertion Team Members in the Room: NurseGREG Initial Extremity Circumference (cm): 27 Insertion Attempts: 1 Patient Tolerance: Tolerated Well, Age Appropriate Comfort Measures: Subcutaneous anesthetic; Verbal Procedure Location: Bedside Safety Measures: Patient specific safety measures addressed with RN Estimated Blood Loss (mL): 1 Vessel Fully Compressible Proximally and Distally to Insertion Site: Yes Brisk Blood Return Obtained and Line Draws Easily: Yes Tip Location: SVC Line Confirmation: ECG Lot #: [id number] Indirect Fire Infantryman: Bard PICC Line Exp Date: 12/05/2024 Securement: Stat Lock Post Procedure Checklist: Handoff with RN; Obtain all new IV tubing prior to use; Bed at lowest level and wheels locked; Line discharge information at bedside. Additional Details: Line was inserted using Modified Seldinger's Technique. Placed by: Ollie Manriquez RN [facility] 11-28-2023 Nurse Note PICC Insertion Pre-Procedure Checklist: Emergent Line Insertion: No Type of Line to be Placed: PICC Consent Obtained: Yes Emergency Medication Necessary: No Patient Identified with 2 Independent Identifiers: Yes Review of Allergies, Anticoagulation, Relevant Labs, ECG/Telemetry: Yes Risks/Benefits/Alternatives Discussed with Patient/POA/Legal Nanny/Household Manager: Yes Stop Sign on Door: Yes Time Out Performed: Yes Catheter Exchange: No Positioning Checklist: All People, Including Patient, in the Room with Cap and Mask: Yes Fluoroscopy Used to Identify Vessel and Guide Insertion: No Sterile Cover Used: Yes Full Barrier Precautions Followed (Mask, Cap, Gown, Gloves): Yes Hands Washed: Yes Monitors Attached with Sound Alarms On: No Full Body Sterile Drape (Head-to-Toe) Used to Cover Patient: Yes Trendelenburg Position (For IJ and Subclavian): N/A CHG Skin Prep Used and Allowed to Air Dry to Skin Procedure: Yes Procedure Checklist: Blood Aspirated From All Lumens, All Ports Subsequently Flushed: Yes Catheter Caps Placed on All Lumens; Lumens Clamped: Yes Maintain Guidewire Control Throughout, Ensuring Guidewire Removal: Yes Maintain Sterile Field Throughout Insertion: Yes Catheter Secured: Yes Confirmatory Test of Venous Placement: Non-Pulsatile Blood Post Procedure Checklist: Date and Time Written on Dressing: Yes Sharp and Wire Count and Safe Disposal of all Sharps/Wires: Yes Sterile Dressing Applied Per Protocol: Yes X-ray Ordered or ECG Image: Yes PICC Insertion Details: Size (Fr): 4 Lumen Type: Single Catheter to Vein Ratio Less Than 50%: Yes Total Length (cm): 47 External Length (cm): 1 Orientation: Left Location: Basilic Vein Site Prep: Chlorohexidine; Usual sterile procedure followed Local Anesthetic: Injectable/Subcutaneous Indication: Abx Insertion Team Members in the Room: Nurse, GREG Initial Extremity Circumference (cm): 27 Insertion Attempts: 1 Patient Tolerance: Tolerated Well, Age Appropriate Comfort Measures: Subcutaneous anesthetic; Verbal Procedure Location: Bedside Safety Measures: Patient specific safety measures addressed with RN Estimated Blood Loss (mL): 1 Vessel Fully Compressible Proximally and Distally to Insertion Site: Yes Brisk Blood Return Obtained and Line Draws Easily: Yes Tip Location: SVC Line Confirmation: ECG Lot #: [id number] Indirect Fire Infantryman: Bard PICC Line Exp Date: 12/05/2024 Securement: Stat Lock Post Procedure Checklist: Handoff with RN; Obtain all new IV tubing prior to use; Bed at lowest level and wheels locked; Line discharge information at bedside. Additional Details: Line was inserted using Modified Seldinger's Technique. Placed by: Ollie Manriquez RN documented in this encounter [facility] Work Phone: 11-26-2023 Plan of care note Problem: Pain Goal: My pain/discomfort is manageable Outcome: Progressing Problem: Safety Goal: Patient will be injury free during hospitalization Outcome: Progressing Goal: I will remain free of falls Outcome: Progressing Problem: Daily Care Goal: Daily care needs are met Outcome: Progressing Problem: Psychosocial Needs Goal: Demonstrates ability to cope with hospitalization/illness Outcome: Progressing Goal: Collaborate with me, my family, and caregiver to identify my specific goals Outcome: Progressing Problem: Discharge Barriers Goal: My discharge needs are met Outcome: Progressing Problem: Respiratory Goal: Clear secretions with interventions this shift Outcome: Progressing Goal: Minimize anxiety/maximize coping throughout shift Outcome: Progressing Goal: Minimal/no exertional discomfort or dyspnea this shift Outcome: Progressing Goal: No signs of respiratory distress (eg. Use of accessory muscles. Peds grunting) Outcome: Progressing Goal: Patent airway maintained this shift Outcome: Progressing Goal: Tolerate mechanical ventilation evidenced by VS/agitation level this shift Outcome: Progressing Goal: Tolerate pulmonary toileting this shift Outcome: Progressing Goal: Verbalize decreased shortness of breath this shift Outcome: Progressing Goal: Wean oxygen to maintain O2 saturation per order/standard this shift Outcome: Progressing Goal: Increase self care and/or family involvement in next 24 hours Outcome: Progressing The patient's goals for the shift include The clinical goals for the shift include safety [facility] Work Phone: 11-25-2023 Consult note Associated Order (s): IP CONSULT TO NUTRITION SERVICES Nutrition Initial Assessment: Nutrition Assessment Reason for Assessment: Provider consult order (CF patient education; educate patient) Patient is a 38 y.o. male presenting with Cystic fibrosis PMHx of CF on Trikafta (N/dF508;YQQ7=610%; chronic colonization of MSSA (2021), MRSA isolated from BAL (2023), PSA, (2017). 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 Briceño) Nutrition History: Food and Nutrient History: Patient reports typically eating 3 meals per day with snacks as desired and uses protein powders. He drinks mainly water and sometimes a diet pepsi. Patient is aware of the need for a high caloire/high protein/hi fat diet in setting of CF hx. Today he described doing good, ate 2 meals so far today (~1300kcal and 60g protein). He has additional menus avaialble and likes the salad bar in the cafeteria. Patient does not usually drink Boost shakes but is willing to at this time and may consider for the future as well. Food Allergies/Intolerances: None Anthropometrics: Height: 182.9 cm (6') Weight: 74.4 kg (164 lb) BMI (Calculated): 22.24 IBW/kg (Dietitian Calculated): 81 kg Percent of IBW: 92 % Weight History: Wt Readings from Last 39 Encounters: 11/22/23 74.4 kg (164 lb) 11/20/23 72.6 kg (160 lb 0.9 oz) 10/01/23 73.5 kg (162 lb) 09/18/23 73.6 kg (162 lb 4.1 oz) 04/24/23 73.2 kg (161 lb 6 oz) 10/04/21 86 kg (189 lb 7.8 oz) 03/30/20 82 kg (180 lb 12.4 oz) 03/09/20 89 kg (196 lb 1.6 oz) 09/09/19 89.1 kg (196 lb 6.9 oz) Weight Change %: Weight History / % Weight Change: Patient describes usual weight of 200#, highest about 220 now down to 160# and his goal is to regain lost weight and muscle. 11/22/23) 74.4kg, 04/24/23) 73.2kg. Weight has been stable over past 6 months based on objective weights available. Based on subjective weight hx patient lost 18-25% (reported on H&P 50# over a few months) Significant Weight Loss: Yes Interpretation of Weight Loss: >7.5% in 3 months Nutrition Focused Physical Exam Findings: Thin build. Per patient decline in muscle mass compared to usual state. Subcutaneous Fat Loss: Orbital Fat Pads: Mild-Moderate (slight dark circles and slight hollowing) Buccal Fat Pads: Mild-Moderate (flat cheeks, minimal bounce) Triceps: Mild-Moderate (less than ample fat tissue) Ribs: Defer Muscle Wasting: Temporalis: Mild-Moderate (slight depression) Pectoralis (Clavicular Region): Mild-Moderate (some protrusion of clavicle) Deltoid/Trapezius: Mild-Moderate (slight protrusion of acromion process) Interosseous: Defer Trapezius/Infraspinatus/Supraspi natus (Scapular Region): Defer Quadriceps: Mild-Moderate (mild depression on inner and outer thigh) Gastrocnemius: Well nourished (well developed bulbous muscle) Nutrition Significant Labs: CBC Trend: Results from last 7 days Lab Units 11/25/23 0817 11/22/23 1848 WBC AUTO x10*3/uL 7.7 10.8 RBC AUTO x10*6/uL 5.34 5.56 HEMOGLOBIN g/dL 14.6 15.2 HEMATOCRIT % 45.5 48.6 MCV fL 85 87 PLATELETS AUTO x10*3/uL 259 261 , A1C: Lab Results Component Value Date HGBA1C 9.7 (H) 11/22/2023 , Renal Lab Trend: Results from last 7 days Lab Units 11/25/23 0817 11/24/23 0450 11/22/23 1848 POTASSIUM mmol/L 4.1 4.4 4.4 PHOSPHORUS mg/dL -- -- 3.0 SODIUM mmol/L 136 135* 135* MAGNESIUM mg/dL 1.87 1.97 1.86 EGFR mL/min/1.73m*2 >90 >90 >90 BUN mg/dL 14 19 11 CREATININE mg/dL 0.68 0.81 0.96 Nutrition Specific Medications: Scheduled medications busPIRone, 5 mg, oral, BID cefTAZidime, 2 g, intravenous, q8h cholecalciferol, 5,000 Units, oral, Daily dornase Alpha, 2.5 mg, nebulization, Daily [Held by provider] jivcixahxex-nuucqnjait-ldydajrfb , 2 tablet, oral, q AM enoxaparin, 40 mg, subcutaneous, Daily fluticasone furoate-vilanteroL, 1 puff, inhalation, Daily insulin glargine, 25 Units, subcutaneous, q24h insulin lispro, 0-5 Units, subcutaneous, TID insulin lispro, 8 Units, subcutaneous, TID [Held by provider] ivacaftor, 150 mg, oral, q PM sxilxp-rlxsktun-eswdaxa, 3 capsule, oral, TID mirtazapine, 15 mg, oral, Nightly multivit with minerals-folic acid-criss K-CoQ, 1 capsule, oral, Daily sodium chloride, 3 mL, nebulization, q12h vancomycin, 1,000 mg, intravenous, q12h I/O: ; Dietary Orders (From admission, onward) Start Ordered 11/22/23 1640 Adult diet Regular Diet effective now Comments: High fat, high calorie, high protein. Question: Diet type Answer: Regular 11/22/23 1653 11/22/23 1640 May Participate in Room Service Once Comments: Patient may order off connect and extended stay menu. Question: . Answer: Yes 11/22/23 1653 11/22/23 1640 Oral nutritional supplements Until discontinued Question Answer Comment Deliver with All meals Select supplement: Boost [facility] 11/22/23 165 Estimated Needs: Total Energy Estimated Needs (kCal): 3000 kCal Method for Estimating Needs: 40kcal/kg Total Protein Estimated Needs (g): 100 g Method for Estimating Needs: 1.3g/kg Nutrition Diagnosis Malnutrition Diagnosis Patient has Malnutrition Diagnosis: Yes Diagnosis Status: New Malnutrition Diagnosis: Severe malnutrition related to chronic disease or condition (CF/CFRD/CF exacerbation with medication noncompliance) As Evidenced by: reported poor intake, reported 50# weight loss, decline in physical function and muscle atrophy compared to baseline Nutrition Interventions/Recommendations Nutrition Prescription: Individualized Nutrition Prescription Provided for : Recommend 1) Continue High caloire/high protein/high fat diet, Boost VHC TID, pancreatic enzymes and FLOR's Nutrition Education: Encouraged high kcal/hi pro, hi fat meals to promote adequate intake along with Boost VHC TID (530kcal and 22g pro per each) Nutrition Monitoring and Evaluation Food/Nutrient Related History Monitoring Monitoring and Evaluation Plan: Energy intake Criteria: Patient consumes at least 75% of meals and supplements TID Body Composition/Growth/Weight History Monitoring and Evaluation Plan: Weight Criteria: Promote gain Time Spent/Follow-up Reminder: Time Spent (min): 60 minutes Last Date of Nutrition Visit: 11/25/23 Nutrition Follow-Up Needed?: Dietitian to reassess per policy Follow up Comment: Diet/ONS/Edu [facility] 11-25-2023 Consult note Associated Order (s): IP CONSULT TO NUTRITION SERVICES Nutrition Initial Assessment: Nutrition Assessment Reason for Assessment: Provider consult order (CF patient education; educate patient) Patient is a 38 y.o. male presenting with Cystic fibrosis PMHx of CF on Trikafta ([id number];HQT7=[id number]%; chronic colonization of MSSA (2021), MRSA isolated from BAL (2023), PSA, (2017). 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 Briceño) Nutrition History: Food and Nutrient History: Patient reports typically eating 3 meals per day with snacks as desired and uses protein powders. He drinks mainly water and sometimes a diet pepsi. Patient is aware of the need for a high caloire/high protein/hi fat diet in setting of CF hx. Today he described doing good, ate 2 meals so far today (~1300kcal and 60g protein). He has additional menus avaialble and likes the salad bar in the cafeteria. Patient does not usually drink Boost shakes but is willing to at this time and may consider for the future as well. Food Allergies/Intolerances: None Anthropometrics: Height: 182.9 cm (6') Weight: 74.4 kg (164 lb) BMI (Calculated): 22.24 IBW/kg (Dietitian Calculated): 81 kg Percent of IBW: 92 % Weight History: Wt Readings from Last 39 Encounters: 11/22/23 74.4 kg (164 lb) 11/20/23 72.6 kg (160 lb 0.9 oz) 10/01/23 73.5 kg (162 lb) 09/18/23 73.6 kg (162 lb 4.1 oz) 04/24/23 73.2 kg (161 lb 6 oz) 10/04/21 86 kg (189 lb 7.8 oz) 03/30/20 82 kg (180 lb 12.4 oz) 03/09/20 89 kg (196 lb 1.6 oz) 09/09/19 89.1 kg (196 lb 6.9 oz) Weight Change %: Weight History / % Weight Change: Patient describes usual weight of 200#, highest about 220 now down to 160# and his goal is to regain lost weight and muscle. 11/22/23) 74.4kg, 04/24/23) 73.2kg. Weight has been stable over past 6 months based on objective weights available. Based on subjective weight hx patient lost 18-25% (reported on H&P 50# over a few months) Significant Weight Loss: Yes Interpretation of Weight Loss: >7.5% in 3 months Nutrition Focused Physical Exam Findings: Thin build. Per patient decline in muscle mass compared to usual state. Subcutaneous Fat Loss: Orbital Fat Pads: Mild-Moderate (slight dark circles and slight hollowing) Buccal Fat Pads: Mild-Moderate (flat cheeks, minimal bounce) Triceps: Mild-Moderate (less than ample fat tissue) Ribs: Defer Muscle Wasting: Temporalis: Mild-Moderate (slight depression) Pectoralis (Clavicular Region): Mild-Moderate (some protrusion of clavicle) Deltoid/Trapezius: Mild-Moderate (slight protrusion of acromion process) Interosseous: Defer Trapezius/Infraspinatus/Supraspi natus (Scapular Region): Defer Quadriceps: Mild-Moderate (mild depression on inner and outer thigh) Gastrocnemius: Well nourished (well developed bulbous muscle) Nutrition Significant Labs: CBC Trend: Results from last 7 days Lab Units 11/25/23 0817 11/22/23 1848 WBC AUTO x10*3/uL 7.7 10.8 RBC AUTO x10*6/uL 5.34 5.56 HEMOGLOBIN g/dL 14.6 15.2 HEMATOCRIT % 45.5 48.6 MCV fL 85 87 PLATELETS AUTO x10*3/uL 259 261 , A1C: Lab Results Component Value Date HGBA1C 9.7 (H) 11/22/2023 , Renal Lab Trend: Results from last 7 days Lab Units 11/25/23 0817 11/24/23 0450 11/22/23 1848 POTASSIUM mmol/L 4.1 4.4 4.4 PHOSPHORUS mg/dL -- -- 3.0 SODIUM mmol/L 136 135* 135* MAGNESIUM mg/dL 1.87 1.97 1.86 EGFR mL/min/1.73m*2 >90 >90 >90 BUN mg/dL 14 19 11 CREATININE mg/dL 0.68 0.81 0.96 Nutrition Specific Medications: Scheduled medications busPIRone, 5 mg, oral, BID cefTAZidime, 2 g, intravenous, q8h cholecalciferol, 5,000 Units, oral, Daily dornase Alpha, 2.5 mg, nebulization, Daily [Held by provider] amddmiyjwas-ltabastgsk-muuelkpkt , 2 tablet, oral, q AM enoxaparin, 40 mg, subcutaneous, Daily fluticasone furoate-vilanteroL, 1 puff, inhalation, Daily insulin glargine, 25 Units, subcutaneous, q24h insulin lispro, 0-5 Units, subcutaneous, TID insulin lispro, 8 Units, subcutaneous, TID [Held by provider] ivacaftor, 150 mg, oral, q PM pyvhdo-cyktilua-hozsbun, 3 capsule, oral, TID mirtazapine, 15 mg, oral, Nightly multivit with minerals-folic acid-criss K-CoQ, 1 capsule, oral, Daily sodium chloride, 3 mL, nebulization, q12h vancomycin, 1,000 mg, intravenous, q12h I/O: ; Dietary Orders (From admission, onward) Start Ordered 11/22/23 1640 Adult diet Regular Diet effective now Comments: High fat, high calorie, high protein. Question: Diet type Answer: Regular 11/22/23 1653 11/22/23 1640 May Participate in Room Service Once Comments: Patient may order off connect and extended stay menu. Question: . Answer: Yes 11/22/23 1653 11/22/23 1640 Oral nutritional supplements Until discontinued Question Answer Comment Deliver with All meals Select supplement: Boost [facility] 11/22/23 1653 Estimated Needs: Total Energy Estimated Needs (kCal): 3000 kCal Method for Estimating Needs: 40kcal/kg Total Protein Estimated Needs (g): 100 g Method for Estimating Needs: 1.3g/kg Nutrition Diagnosis Malnutrition Diagnosis Patient has Malnutrition Diagnosis: Yes Diagnosis Status: New Malnutrition Diagnosis: Severe malnutrition related to chronic disease or condition (CF/CFRD/CF exacerbation with medication noncompliance) As Evidenced by: reported poor intake, reported 50# weight loss, decline in physical function and muscle atrophy compared to baseline Nutrition Interventions/Recommendations Nutrition Prescription: Individualized Nutrition Prescription Provided for : Recommend 1) Continue High caloire/high protein/high fat diet, Boost VHC TID, pancreatic enzymes and FLOR's Nutrition Education: Encouraged high kcal/hi pro, hi fat meals to promote adequate intake along with Boost VHC TID (530kcal and 22g pro per each) Nutrition Monitoring and Evaluation Food/Nutrient Related History Monitoring Monitoring and Evaluation Plan: Energy intake Criteria: Patient consumes at least 75% of meals and supplements TID Body Composition/Growth/Weight History Monitoring and Evaluation Plan: Weight Criteria: Promote gain Time Spent/Follow-up Reminder: Time Spent (min): 60 minutes Last Date of Nutrition Visit: 11/25/23 Nutrition Follow-Up Needed?: Dietitian to reassess per policy Follow up Comment: Diet/ONS/Edu Associated Order(s): Inpatient consult to Endocrinology Inpatient consult to Endocrinology Consult performed by: Jocelyne Day PA-C Consult ordered by: Madeleine Small MD Reason for consult: CFRD with hyperglycemia in setting of barriers to insulin access at home Assessment/Recommendations: Pt would benefit from weight-based insulin regimen. Reason For Consult CFRD with hyperglycemia in setting of barriers to insulin access at home History Of Present Illness Bravo Hull is a 38 y.o. male presenting with acute exacerbation of cystic fibrosis. CF (MSSA, MRSA, NTM (M. 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 Sharp decline in FEV1 in the last 7 months. Pt has been without all medications in the last 7 months due to insurance issues. Has not had insulin which is normally given by PCP who he has not seen in this time either. He has no complaints at time of interview. Diabetes History Outpatient provider for endocrine care Dr. Camilo (PCP), date of last visit several months ago Initial diabetes diagnosis was made (year/age) several years ago (CFRD) Known complications due to diabetes include: hyperglycemia Home Management 25u lantus BID 8u lispro TIDAC + SS#1 Results from Most Recent A1C POC HEMOGLOBIN A1c Date/Time Value Ref Range Status 09/19/2023 02:49 PM 10.0 (A) 4.2 - 6.5 % Final Hemoglobin A1C Date/Time Value Ref Range Status 11/22/2023 06:48 PM 9.7 (H) see below % Final Diabetes Problem List Entries with Dates Problem List: 2023-09: Diabetes mellitus, type 2 (Multi) History of DKA with Dates: N/A Past Medical History He has a past medical history of Abnormal weight loss (03/13/2016), Bilateral inguinal hernia, without obstruction or gangrene, not specified as recurrent (07/12/2016), Overweight (03/17/2021), and Umbilical hernia without obstruction or gangrene (07/12/2016). Surgical History He has a past surgical history that includes Other surgical history (03/17/2021); Other surgical history (03/17/2021); Other surgical history (03/17/2021); Other surgical history (07/12/2016); Rhinoplasty (07/12/2016); and Knee surgery (07/12/2016). Social History He reports that he has never smoked. His smokeless tobacco use includes chew. He reports current alcohol use of about 3.0 standard drinks of alcohol per week. Drug use questions deferred to the physician. Family History No family history on file. Allergies Patient has no known allergies. Review of Systems Constitutional: Negative for fatigue and fever. Respiratory: Positive for cough. Cardiovascular: Negative for chest pain. Gastrointestinal: Negative for abdominal pain and nausea. Genitourinary: Negative for difficulty urinating. Musculoskeletal: Negative for arthralgias. Neurological: Negative for tremors and weakness. Physical Exam Constitutional: General: He is not in acute distress. Appearance: Normal appearance. Comments: Well appearing HENT: Head: Normocephalic and atraumatic. Nose: Nose normal. Mouth/Throat: Mouth: Mucous membranes are moist. Pharynx: Oropharynx is clear. Cardiovascular: Rate and Rhythm: Normal rate. Pulmonary: Effort: No respiratory distress. Comments: Exam deferred; pt is wearing therapeutic vest at time of interview. Pt clearing secretions throughout exam intermittently. Abdominal: General: Abdomen is flat. There is no distension. Musculoskeletal: General: Normal range of motion. Cervical back: Normal range of motion. Skin: General: Skin is warm and dry. Neurological: General: No focal deficit present. Mental Status: He is alert. Psychiatric: Mood and Affect: Mood normal. Thought Content: Thought content normal. ROS, PMH, FH/SH, surgical history and allergies have been reviewed. Last Recorded Vitals Blood pressure 120/79, pulse 92, temperature 36.1 C (97 F), temperature source Temporal, resp. rate 16, height 1.829 m (6'), weight 74.4 kg (164 lb), SpO2 99%. Relevant Results Results from last 7 days Lab Units 11/25/23 1218 11/25/23 0828 11/25/23 0817 11/24/23 2013 11/24/23 1742 11/24/23 1344 11/24/23 0857 11/24/23 0450 11/22/23 2034 11/22/23 1848 POCT GLUCOSE mg/dL 261* 118* -- 255* 225* 386* < > -- < > -- GLUCOSE mg/dL -- -- 137* -- -- -- -- 357* -- 165* < > = values in this interval not displayed. Scheduled medications busPIRone, 5 mg, oral, BID cefTAZidime, 2 g, intravenous, q8h cholecalciferol, 5,000 Units, oral, Daily dornase Alpha, 2.5 mg, nebulization, Daily [Held by provider] ceficythdui-wwlxppzgav-phfzuzhyw , 2 tablet, oral, q AM enoxaparin, 40 mg, subcutaneous, Daily fluticasone furoate-vilanteroL, 1 puff, inhalation, Daily insulin glargine, 25 Units, subcutaneous, q24h insulin lispro, 0-5 Units, subcutaneous, TID insulin lispro, 8 Units, subcutaneous, TID [Held by provider] ivacaftor, 150 mg, oral, q PM jejmey-eddhszgb-zoomype, 3 capsule, oral, TID mirtazapine, 15 mg, oral, Nightly multivit with minerals-folic acid-criss K-CoQ, 1 capsule, oral, Daily sodium chloride, 3 mL, nebulization, q12h vancomycin, 1,000 mg, intravenous, q12h Continuous medications PRN medications PRN medications: albuterol, albuterol, dextrose, dextrose, glucagon, glucagon, vancomycin Assessment/Plan Principal Problem: Cystic fibrosis (Multi) History Of Present Illness Bravo Handy Hull is a 38 y.o. male presenting with acute exacerbation of cystic fibrosis. CF (MSSA, MRSA, NTM (M. 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 Sharp decline in FEV1 in the last 7 months. Pt has been without all medications in the last 7 months due to insurance issues. Has not had insulin which is normally given by PCP who he has not seen in this time either. Diabetes History Outpatient provider for endocrine care Dr. Camilo (PCP), date of last visit several months ago Initial diabetes diagnosis was made (year/age) several years ago (CFRD) Known complications due to diabetes include: hyperglycemia Home Management 25u lantus BID 8u lispro TIDAC + SS#1 PLAN: - Goal BG <180 - continue glargine 25u once daily NPO or glucose trending <100mg/dL: reduce to 20u - increase lispro to 8u from 5u with meals plus scale #1 NPO or glucose <90mg/dL within 1hr before meals: hold - continue lispro corrective scale with meals, retime to q6hr if NPO or q4hr if persistently hyperglycemic >250mg/dL 70-150 = 0u 151-200 = 1u 201-250 = 2u 251-300 = 3u 301-350 = 4u 351-400 = 5u -Accuchecks (not BMP) TIDAC and QHS- kindly ensure QHS Accucheck is drawn; it is often missed -Hypoglycemia protocol -Diabetes Diet- low carb 60 CHO -Will continue to follow and titrate insulin accordingly Dispo: pt can expect to discharge on multiple doses of insulin, with exact regimen TBD by titration up until the day of discharge. MARIA ANTONIA Ugarte PA-S2 documented in this encounter [facility] Work Phone: 11-25-2023 Consult note Associated Order (s): Inpatient consult to Endocrinology Inpatient consult to Endocrinology Consult performed by: Jocelyne Day PA-C Consult ordered by: Madeleine Small MD Reason for consult: CFRD with hyperglycemia in setting of barriers to insulin access at home Assessment/Recommendations: Pt would benefit from weight-based insulin regimen. Reason For Consult CFRD with hyperglycemia in setting of barriers to insulin access at home History Of Present Illness Bravo Hull is a 38 y.o. male presenting with acute exacerbation of cystic fibrosis. CF (MSSA, MRSA, NTM (M. 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 Sharp decline in FEV1 in the last 7 months. Pt has been without all medications in the last 7 months due to insurance issues. Has not had insulin which is normally given by PCP who he has not seen in this time either. He has no complaints at time of interview. Diabetes History Outpatient provider for endocrine care Dr. Camilo (PCP), date of last visit several months ago Initial diabetes diagnosis was made (year/age) several years ago (CFRD) Known complications due to diabetes include: hyperglycemia Home Management 25u lantus BID 8u lispro TIDAC + SS#1 Results from Most Recent A1C POC HEMOGLOBIN A1c Date/Time Value Ref Range Status 09/19/2023 02:49 PM 10.0 (A) 4.2 - 6.5 % Final Hemoglobin A1C Date/Time Value Ref Range Status 11/22/2023 06:48 PM 9.7 (H) see below % Final Diabetes Problem List Entries with Dates Problem List: 2023-09: Diabetes mellitus, type 2 (Multi) History of DKA with Dates: N/A Past Medical History He has a past medical history of Abnormal weight loss (03/13/2016), Bilateral inguinal hernia, without obstruction or gangrene, not specified as recurrent (07/12/2016), Overweight (03/17/2021), and Umbilical hernia without obstruction or gangrene (07/12/2016). Surgical History He has a past surgical history that includes Other surgical history (03/17/2021); Other surgical history (03/17/2021); Other surgical history (03/17/2021); Other surgical history (07/12/2016); Rhinoplasty (07/12/2016); and Knee surgery (07/12/2016). Social History He reports that he has never smoked. His smokeless tobacco use includes chew. He reports current alcohol use of about 3.0 standard drinks of alcohol per week. Drug use questions deferred to the physician. Family History No family history on file. Allergies Patient has no known allergies. Review of Systems Constitutional: Negative for fatigue and fever. Respiratory: Positive for cough. Cardiovascular: Negative for chest pain. Gastrointestinal: Negative for abdominal pain and nausea. Genitourinary: Negative for difficulty urinating. Musculoskeletal: Negative for arthralgias. Neurological: Negative for tremors and weakness. Physical Exam Constitutional: General: He is not in acute distress. Appearance: Normal appearance. Comments: Well appearing HENT: Head: Normocephalic and atraumatic. Nose: Nose normal. Mouth/Throat: Mouth: Mucous membranes are moist. Pharynx: Oropharynx is clear. Cardiovascular: Rate and Rhythm: Normal rate. Pulmonary: Effort: No respiratory distress. Comments: Exam deferred; pt is wearing therapeutic vest at time of interview. Pt clearing secretions throughout exam intermittently. Abdominal: General: Abdomen is flat. There is no distension. Musculoskeletal: General: Normal range of motion. Cervical back: Normal range of motion. Skin: General: Skin is warm and dry. Neurological: General: No focal deficit present. Mental Status: He is alert. Psychiatric: Mood and Affect: Mood normal. Thought Content: Thought content normal. ROS, PMH, FH/SH, surgical history and allergies have been reviewed. Last Recorded Vitals Blood pressure 120/79, pulse 92, temperature 36.1 C (97 F), temperature source Temporal, resp. rate 16, height 1.829 m (6'), weight 74.4 kg (164 lb), SpO2 99%. Relevant Results Results from last 7 days Lab Units 11/25/23 1218 11/25/23 0828 11/25/23 0817 11/24/23 2013 11/24/23 1742 11/24/23 1344 11/24/23 0857 11/24/23 0450 11/22/23 2034 11/22/23 1848 POCT GLUCOSE mg/dL 261* 118* -- 255* 225* 386* < > -- < > -- GLUCOSE mg/dL -- -- 137* -- -- -- -- 357* -- 165* < > = values in this interval not displayed. Scheduled medications busPIRone, 5 mg, oral, BID cefTAZidime, 2 g, intravenous, q8h cholecalciferol, 5,000 Units, oral, Daily dornase Alpha, 2.5 mg, nebulization, Daily [Held by provider] xvooxdytzpt-ilaojxghpu-fyupmhqnd , 2 tablet, oral, q AM enoxaparin, 40 mg, subcutaneous, Daily fluticasone furoate-vilanteroL, 1 puff, inhalation, Daily insulin glargine, 25 Units, subcutaneous, q24h insulin lispro, 0-5 Units, subcutaneous, TID insulin lispro, 8 Units, subcutaneous, TID [Held by provider] ivacaftor, 150 mg, oral, q PM pcikui-wmzvbycd-qwwakww, 3 capsule, oral, TID mirtazapine, 15 mg, oral, Nightly multivit with minerals-folic acid-criss K-CoQ, 1 capsule, oral, Daily sodium chloride, 3 mL, nebulization, q12h vancomycin, 1,000 mg, intravenous, q12h Continuous medications PRN medications PRN medications: albuterol, albuterol, dextrose, dextrose, glucagon, glucagon, vancomycin Assessment/Plan Principal Problem: Cystic fibrosis (Multi) History Of Present Illness Bravo Hull is a 38 y.o. male presenting with acute exacerbation of cystic fibrosis. CF (MSSA, MRSA, NTM (M. 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 Sharp decline in FEV1 in the last 7 months. Pt has been without all medications in the last 7 months due to insurance issues. Has not had insulin which is normally given by PCP who he has not seen in this time either. Diabetes History Outpatient provider for endocrine care Dr. Camilo (PCP), date of last visit several months ago Initial diabetes diagnosis was made (year/age) several years ago (CFRD) Known complications due to diabetes include: hyperglycemia Home Management 25u lantus BID 8u lispro TIDAC + SS#1 PLAN: - Goal BG <180 - continue glargine 25u once daily NPO or glucose trending <100mg/dL: reduce to 20u - increase lispro to 8u from 5u with meals plus scale #1 NPO or glucose <90mg/dL within 1hr before meals: hold - continue lispro corrective scale with meals, retime to q6hr if NPO or q4hr if persistently hyperglycemic >250mg/dL 70-150 = 0u 151-200 = 1u 201-250 = 2u 251-300 = 3u 301-350 = 4u 351-400 = 5u -Accuchecks (not BMP) TIDAC and QHS- kindly ensure QHS Accucheck is drawn; it is often missed -Hypoglycemia protocol -Diabetes Diet- low carb 60 CHO -Will continue to follow and titrate insulin accordingly Dispo: pt can expect to discharge on multiple doses of insulin, with exact regimen TBD by titration up until the day of discharge. MARIA ANTONIA Ugarte PA-S2 [facility] Work Phone: 11-24-2023 Plan of care note The patient's goals for the shift include The clinical goals for the shift include Will maintain spO2> 92% Problem: Pain Goal: My pain/discomfort is manageable Outcome: Progressing Problem: Safety Goal: Patient will be injury free during hospitalization Outcome: Progressing Goal: I will remain free of falls Outcome: Progressing Problem: Daily Care Goal: Daily care needs are met Outcome: Progressing Problem: Psychosocial Needs Goal: Demonstrates ability to cope with hospitalization/illness Outcome: Progressing Goal: Collaborate with me, my family, and caregiver to identify my specific goals Outcome: Progressing Problem: Discharge Barriers Goal: My discharge needs are met Outcome: Progressing Problem: Respiratory Goal: Clear secretions with interventions this shift Outcome: Progressing Goal: Minimize anxiety/maximize coping throughout shift Outcome: Progressing Goal: Minimal/no exertional discomfort or dyspnea this shift Outcome: Progressing Goal: No signs of respiratory distress (eg. Use of accessory muscles. Peds grunting) Outcome: Progressing Goal: Patent airway maintained this shift Outcome: Progressing Goal: Tolerate mechanical ventilation evidenced by VS/agitation level this shift Outcome: Progressing Goal: Tolerate pulmonary toileting this shift Outcome: Progressing Goal: Verbalize decreased shortness of breath this shift Outcome: Progressing Goal: Wean oxygen to maintain O2 saturation per order/standard this shift Outcome: Progressing Goal: Increase self care and/or family involvement in next 24 hours Outcome: Progressing [facility] 11-23-2023 Plan of care note Problem: Pain Goal: My pain/discomfort is manageable Outcome: Progressing Problem: Safety Goal: Patient will be injury free during hospitalization Outcome: Progressing Goal: I will remain free of falls Outcome: Progressing Problem: Daily Care Goal: Daily care needs are met Outcome: Progressing Problem: Psychosocial Needs Goal: Demonstrates ability to cope with hospitalization/illness Outcome: Progressing Goal: Collaborate with me, my family, and caregiver to identify my specific goals Outcome: Progressing Problem: Discharge Barriers Goal: My discharge needs are met Outcome: Progressing Problem: Respiratory Goal: Clear secretions with interventions this shift Outcome: Progressing Goal: Minimize anxiety/maximize coping throughout shift Outcome: Progressing Goal: Minimal/no exertional discomfort or dyspnea this shift Outcome: Progressing Goal: No signs of respiratory distress (eg. Use of accessory muscles. Peds grunting) Outcome: Progressing Goal: Patent airway maintained this shift Outcome: Progressing Goal: Tolerate mechanical ventilation evidenced by VS/agitation level this shift Outcome: Progressing Goal: Tolerate pulmonary toileting this shift Outcome: Progressing Goal: Verbalize decreased shortness of breath this shift Outcome: Progressing Goal: Wean oxygen to maintain O2 saturation per order/standard this shift Outcome: Progressing Goal: Increase self care and/or family involvement in next 24 hours Outcome: Progressing The patient's goals for the shift include The clinical goals for the shift include Will maintain spO2> 92% [facility] Work Phone: 11-22-2023 Note Formatting of this n ote might be different from the original. For Detailed H&P, refer to Excellent Dr Mensah's H&P HISTORY OF PRESENT ILLNESS ==== 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 Abscessus), liver cirrhosis, poorly controlled CFRD ( last A1C 10 on 09/2023), last PSA 2017, Poor medication compliance given lack of insurance, off all his medications in the last 1 month and has not been taking Trikafta since May 2023. Presenting as a direct admit for CF exacerbation with a decrease in his FEV1 from 104% (04/2023) to now 66% (11/2023) with associated weight loss ( >50 pounds in 6 months) in the setting of poor p.o. intake, chronic lung disease, lack of insulin therapy. Most recent labs from 2022 did not indicate ABPA however patient endorses worsening cough, sputum production, fatigue and lack of energy all the time, he denies hemoptysis, night sweats, fevers, chest pain, no N/V/D. Patient endorses that due to lack of insurance, he has been sharing insulin with his friend and recently got insulin that was for the father of girlfriend who Upon arrival to the floor, he is awake, alert, coughing often with a dry cough but not in acute distress Data on arrival to the floor VS: Afebrile, HR 91, BP 127/86, RR 20, breathing comfortably on RA Recent workup PFTs: 11/20/23: FEV1 66% (2.93L) 09/18/23: FEV1= 87.8% (5.27L) 04/24/23: WET5=398% (decreased from 112% last year) Microbiology data -Sputum: MSSA, MRSA, NTM (M. Abscessus),Levar glabrata, levar dubliniensis Imaging CT chest 09/18/23 1. Nonspecific apical predominant peribronchial nodularity with diffuse bronchial wall thickening, bronchiectasis, and scattered tree-in-bud nodularities, findings in keeping with patient's acid-fast bacilli positive sputum cultures. Lingular and right upperlobe consolidation/infiltrates. Given the distribution consider a mycobacterium avium complex versus fortuitum infection/colonization. 2. Mucoid impaction within the posterior right upper lobe bronchi,consistent with patient's known history of cystic fibrosis. 3. Prominent and enlarged mediastinal and hilar lymph nodes, which are likely reactive. 4. Bilateral nonobstructing renal calculi. PSH/PMH: As above MEDICATIONS albuterol 90 mcg/actuation inhalerInhale 2 puffs by mouth every 4 hours if needed for shortness of breath (airway clearnce). albuterol2.5 mg, nebulization, Every 4 hours PRN Baqsimi 3 mg/actuation spray,non-aerosol [place] 3 mg nasally as needed for severe hypoglycemia budesonide-formoteroL (Symbicort) 80-4.5 mcg/actuation inhaler Inhale 2 puffs by mouth 2 times a day. busPIRone (BUSPAR) 5 mg, oral, 2 times daily cholecalciferol (VITAMIN D-3) 5,000 Units, oral, Daily ixjizfaqsum-ljuvvpkncv-vihdmju (Trikafta) 100-50-75 mg tabletTake two (2) orange tablets by mouth every morning and one (1) blue tablet by mouth every evening. Take approximately 12 hours apart with fatty foods. fluticasone (Flonase) 50 mcg/actuation nasal spray 2 sprays, Each Nostril, Daily, Shake gently. Before first use, prime pump. After use, clean tip and replace cap. insulin glargine (Basaglar KwikPen U-100 Insulin) 100 unit/mL (3 mL) pen Inject up to 50 units daily insulin lispro (HumaLOG U-100 Insulin) 100 unit/mL injection Use up to 50 units daily as directed bmgcog-tibfhevt-vhkeuuf (Zenpep) 25,000-79,000- 105,000 unit capsule Take 4-5 capsules by mouth with meals and 3 capsules by mouth with snacks. Total of 24 capsules per day mirtazapine (REMERON) 15 mg, oral, Nightly sodium chloride 7 % solution for nebulization nebulizer solution Inhale 1 vial via nebulizer twice a day vit A-vit D3-vit E-vit K1 (DEKAs Essential) 600 mcg-50 mcg- 101 mg-1,000mcg capsule capsule 1,000 mcg, oral, Daily ALLERGIES ==== NKDA FAMILY HX ==== Reviewed and NC SOCIAL HX ==== - Living Situation: lives with girl friend - Functional Status: Very functional at baseline - Tobacco: Denies - Alcohol: denies - Drugs: Denies REVIEW OF SYSTEMS: ==== 12 Point ROS otherwise negative PHYSICAL EXAM: ==== General: awake, alert, seated in bed,no acute distress; thin, chronically ill appearing HEENT: anicteric sclerae; conjunctivae not injected; nasal mucosa was unremarkable; oropharynx was clear without evidence of thrush; dentition was good; TM's clear bilaterally, +clear rhinorrhea; ++Temporal wasting Chest: rales that clear with coughing otherwise clear to auscultation bilaterally; + coughing with deep breathing Cardiac: regular rhythm; no gallop or murmur. Abdomen: soft; non-tender; non-distended; no hepatosplenomegaly. Extremities: no leg edema; (+) digital clubbing; 2+ pulses Psychiatric: did not appear depressed or anxious. ASSESSMENT & PLAN ==== 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 Abscessus), liver cirrhosis, poorly controlled CFRD ( last A1C 10 on 09/2023), last PSA 2017, Poor medication compliance given lack of insurance, off all his medications in the last 1 month and has not been taking Trikafta since May 2023. Presenting as a direct admit for CF exacerbation in the setting of decreased FEV1 from 104% (04/2023) to now 66% (11/2023) with associated weight loss ( >50 pounds in 6 months) 2/2 poor p.o. intake, chronic lung disease, poorly controlled CFRD 2/2 lack of insulin therapy. Plan #Cystic Fibrosis without exacerbation (N/dF508;JHY3=594->88%-> 66% today) ::Last CXR - 09/2021, Lung CT Scan 09/06/23, DEXA Scan - 09/2021 ::PFT completed today - 66% ::Mycobacterium Abscessus Pulmonary disease -reinitiation of Trikafta pending lab work and isnurance processing so he doesn't have it during admission and not when he goes home -c/w Albuterol, Symbicort -resume HTS inpatient - Dornase: defer for now as re-initiating airway clearance - start Airway Clearance: Vest -fu AFB , Fungal, CF Cultures/steffanie - FU repeat Sputum - culture collected on 11/19 - Avoid macrolides inpatient -start Antibiotics: IV Colistin, Ceftazidime, Vancomycin - start Inhaled therapies: Breo inhaler (home symbicort); albuterol; 7% HTS bid; VEST therapy -start Pancreatic Enzymes 3 tabs of ZenPEP with meals and 2 tabs with snacks - get Labs: CMP, GGT, Coags, IgE, CBCdiff, UA, HbA1C, Resp Viral Panel #CFRD ::Most recent HbA1C 10 in 09/28 -Resume Lantus at 25 nightly (home dose 50 BID), will up titrate as per BGs -consult to endocrinology in AM for optimized CFRD treatment # Exocrine Pancreatic insufficiency :: Seen by RD on 11/19 - Continue Enzymes #Cirrhosis :: follows Dr. Briceño outpatient, last seen 11/19 -compensated cirrhosis -Get LFTs F: bolus PRN E: replete PRN N: regular A: PIV DVT ppx: Lovenox GI ppx: Not indicated CODE STATUS: Full Code (confirmed on admission) Surrogate Decision Maker: Sister Alice Damon [facility] Work Phone: 11-22-2023 History and physical note Chief Complaint CF exacerbation History Of Present Illness Mr. Hull is a 38 y/o M with PMHx of CF on Trikafta (N/dF508;VOI3=631%; chronic colonization of MSSA (2021), MRSA isolated from BAL (2023), PSA, (2017). 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 Briceño) who presented as a direct admit from clinic today with a CF exacerbation. Pt reports he has not been taking his Trikafta, since May due to issues with insurance with a job change. He has also not taken insulin or inhalers for about a month for the same reason. He complains of decreased exercise tolerance, weight loss, and increased sputum production (no blood). He has had associated night sweats. Per patient he has been feeling bad for the better part of a year. He states over the past few months he has lost about 50lbs and had a worsening productive cough. He has generally felt weak and fatigued. Patient states he had episode of fluttering in his chest and went to ED were he was given adenosine, he states he had 2 prior episodes of this that resolved on their own. Otherwise denies f/c. Endorses regular Bms, Patient saw Dr. Waters in clinic 11/19 and had PFTs showing worsening FEV1 of 66%, along with past CT results, 09/28 bronch findings, and symptoms, decision was made to admit to hospital for treatment of CF exacerbation. Past Medical History Past Medical History: Diagnosis Date Abnormal weight loss 03/13/2016 Weight loss Bilateral inguinal hernia, without obstruction or gangrene, not specified as recurrent 07/12/2016 Bilateral inguinal hernia without obstruction or gangrene Overweight 03/17/2021 Overweight Umbilical hernia without obstruction or gangrene 07/12/2016 Umbilical hernia without obstruction and without gangrene Surgical History Past Surgical History: Procedure Laterality Date KNEE SURGERY 07/12/2016 Knee Surgery Left OTHER SURGICAL HISTORY 03/17/2021 Nasal polypectomy OTHER SURGICAL HISTORY 03/17/2021 Knee replacement OTHER SURGICAL HISTORY 03/17/2021 Hernia repair OTHER SURGICAL HISTORY 07/12/2016 Simple Excision Of Nasal Polyp RHINOPLASTY 07/12/2016 Rhinoplasty Social History He reports that he has never smoked. His smokeless tobacco use includes chew. He reports current alcohol use of about 3.0 standard drinks of alcohol per week. Drug use questions deferred to the physician. Family History No family history on file. Allergies Patient has no known allergies. Review of Systems Negative except per HPI Physical Exam Blood pressure 127/86, pulse 91, temperature 36.6 C (97.9 F), temperature source Temporal, resp. rate 20, height 1.829 m (6'), weight 74.4 kg (164 lb). Physical Exam Constitutional: General: He is not in acute distress. Appearance: Normal appearance. Comments: Cachetic HENT: Head: Normocephalic and atraumatic. Mouth/Throat: Mouth: Mucous membranes are moist. Pharynx: Oropharynx is clear. Eyes: Extraocular Movements: Extraocular movements intact. Conjunctiva/sclera: Conjunctivae normal. Pupils: Pupils are equal, round, and reactive to light. Cardiovascular: Rate and Rhythm: Normal rate and regular rhythm. Heart sounds: No murmur heard. No friction rub. No gallop. Pulmonary: Effort: Pulmonary effort is normal. No respiratory distress. Breath sounds: Normal breath sounds. No wheezing, rhonchi or rales. Abdominal: General: Abdomen is flat. Bowel sounds are normal. There is no distension. Palpations: Abdomen is soft. Tenderness: There is no abdominal tenderness. There is no guarding or rebound. Musculoskeletal: Right lower leg: No edema. Left lower leg: No edema. Skin: General: Skin is warm and dry. Neurological: General: No focal deficit present. Mental Status: He is alert and oriented to person, place, and time. Mental status is at baseline. Psychiatric: Mood and Affect: Mood normal. Behavior: Behavior normal. Assessment/Plan Principal Problem: Cystic fibrosis ([place]) 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 Patient has not been taking any medications for the last 1 month and has not been taking Trikafta since May 2023. He also is currently in a CF exacerbation with a decrease in his FEV1 from 104% (04/2023) to now 66% (11/2023) with decreased weight in the setting of poor p.o. intake, chronic lung disease, lack of insulin therapy. Most recent labs from 2022 did not indicate ABPA though IgE and CBC with differential should be repeated in the patient. Dr. Waters discussed at length the concern with this significant decrease in his FEV1 over the last 7 months and the need to focus on his treatment therapy aggressively in order to gain recovery. He is agreeable to inpatient admission for CF exacerbation, diabetes management. #Cystic Fibrosis exacerbation (N/dF508;AHV2=775->88%-> 66% ) - Modulator: START Trikafta - Bronchodilators: Albuterol PRN, breo - HTS: 7% BID - Dornase: defer for now as re-initiating airway clearance - Inhaled ABX: none - Airway Clearance: Vest TID - Antibiotics: -IV colistin 150mg q8hrs -IV ceftazidime 2g q8hrs -IV vanc pharmacy to dose -Avoid macrolides given NTM -Fu respiratory cultures obtained in clinic -Fu IgE, RVP, CBC #hx of SVT s/p adenosine -fu admission EKG -monitor for symptoms -consider metop for suppression if HR tolerates -Should follow up with EP outpatient for consideration of ablation #CFRD ::Patient reports being on 25u lantus BID and 8u humalog with meals +SSI at home -A1c 10 09/19/23 -fu repeat A1c -endocrine consult in AM -start lantus 25u at night, up titrate as needed pending endo recs -SSI #Exocrine Pancreatic insufficiency -continue zenPEP with meals #Cirrhosis - Follows with Dr. Briceño with GI - fu LFTs F: PRN E: PRN N: Regular Diet A: pIV DVT ppx: Lovenox GI ppx: Not indicated CODE STATUS: Full Code (confirmed on admission) Surrogate Decision Maker: Sister Ailce Damon Marquise Mensah MD PGY-1 [facility] Work Phone: 11-22-2023 History and physical note Chief Complaint CF exacerbation History Of Present Illness Mr. Hull is a 38 y/o M with PMHx of CF on Trikafta (N/dF508;SMZ5=485%; chronic colonization of MSSA (2021), MRSA isolated from BAL (2023), PSA, (2017). 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 Briceño) who presented as a direct admit from clinic today with a CF exacerbation. Pt reports he has not been taking his Trikafta, since May due to issues with insurance with a job change. He has also not taken insulin or inhalers for about a month for the same reason. He complains of decreased exercise tolerance, weight loss, and increased sputum production (no blood). He has had associated night sweats. Per patient he has been feeling bad for the better part of a year. He states over the past few months he has lost about 50lbs and had a worsening productive cough. He has generally felt weak and fatigued. Patient states he had episode of fluttering in his chest and went to ED were he was given adenosine, he states he had 2 prior episodes of this that resolved on their own. Otherwise denies f/c. Endorses regular Bms, Patient saw Dr. Waters in clinic 11/19 and had PFTs showing worsening FEV1 of 66%, along with past CT results, 09/28 bronch findings, and symptoms, decision was made to admit to hospital for treatment of CF exacerbation. Past Medical History Past Medical History: Diagnosis Date Abnormal weight loss 03/13/2016 Weight loss Bilateral inguinal hernia, without obstruction or gangrene, not specified as recurrent 07/12/2016 Bilateral inguinal hernia without obstruction or gangrene Overweight 03/17/2021 Overweight Umbilical hernia without obstruction or gangrene 07/12/2016 Umbilical hernia without obstruction and without gangrene Surgical History Past Surgical History: Procedure Laterality Date KNEE SURGERY 07/12/2016 Knee Surgery Left OTHER SURGICAL HISTORY 03/17/2021 Nasal polypectomy OTHER SURGICAL HISTORY 03/17/2021 Knee replacement OTHER SURGICAL HISTORY 03/17/2021 Hernia repair OTHER SURGICAL HISTORY 07/12/2016 Simple Excision Of Nasal Polyp RHINOPLASTY 07/12/2016 Rhinoplasty Social History He reports that he has never smoked. His smokeless tobacco use includes chew. He reports current alcohol use of about 3.0 standard drinks of alcohol per week. Drug use questions deferred to the physician. Family History No family history on file. Allergies Patient has no known allergies. Review of Systems Negative except per HPI Physical Exam Blood pressure 127/86, pulse 91, temperature 36.6 C (97.9 F), temperature source Temporal, resp. rate 20, height 1.829 m (6'), weight 74.4 kg (164 lb). Physical Exam Constitutional: General: He is not in acute distress. Appearance: Normal appearance. Comments: Cachetic HENT: Head: Normocephalic and atraumatic. Mouth/Throat: Mouth: Mucous membranes are moist. Pharynx: Oropharynx is clear. Eyes: Extraocular Movements: Extraocular movements intact. Conjunctiva/sclera: Conjunctivae normal. Pupils: Pupils are equal, round, and reactive to light. Cardiovascular: Rate and Rhythm: Normal rate and regular rhythm. Heart sounds: No murmur heard. No friction rub. No gallop. Pulmonary: Effort: Pulmonary effort is normal. No respiratory distress. Breath sounds: Normal breath sounds. No wheezing, rhonchi or rales. Abdominal: General: Abdomen is flat. Bowel sounds are normal. There is no distension. Palpations: Abdomen is soft. Tenderness: There is no abdominal tenderness. There is no guarding or rebound. Musculoskeletal: Right lower leg: No edema. Left lower leg: No edema. Skin: General: Skin is warm and dry. Neurological: General: No focal deficit present. Mental Status: He is alert and oriented to person, place, and time. Mental status is at baseline. Psychiatric: Mood and Affect: Mood normal. Behavior: Behavior normal. Assessment/Plan Principal Problem: Cystic fibrosis ([place]) 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 Patient has not been taking any medications for the last 1 month and has not been taking Trikafta since May 2023. He also is currently in a CF exacerbation with a decrease in his FEV1 from 104% (04/2023) to now 66% (11/2023) with decreased weight in the setting of poor p.o. intake, chronic lung disease, lack of insulin therapy. Most recent labs from 2022 did not indicate ABPA though IgE and CBC with differential should be repeated in the patient. Dr. Waters discussed at length the concern with this significant decrease in his FEV1 over the last 7 months and the need to focus on his treatment therapy aggressively in order to gain recovery. He is agreeable to inpatient admission for CF exacerbation, diabetes management. #Cystic Fibrosis exacerbation (N/dF508;BRL2=270->88%-> 66% ) - Modulator: START Trikafta - Bronchodilators: Albuterol PRN, breo - HTS: 7% BID - Dornase: defer for now as re-initiating airway clearance - Inhaled ABX: none - Airway Clearance: Vest TID - Antibiotics: -IV colistin 150mg q8hrs -IV ceftazidime 2g q8hrs -IV vanc pharmacy to dose -Avoid macrolides given NTM -Fu respiratory cultures obtained in clinic -Fu IgE, RVP, CBC #hx of SVT s/p adenosine -fu admission EKG -monitor for symptoms -consider metop for suppression if HR tolerates -Should follow up with EP outpatient for consideration of ablation #CFRD ::Patient reports being on 25u lantus BID and 8u humalog with meals +SSI at home -A1c 10 09/19/23 -fu repeat A1c -endocrine consult in AM -start lantus 25u at night, up titrate as needed pending endo recs -SSI #Exocrine Pancreatic insufficiency -continue zenPEP with meals #Cirrhosis - Follows with Dr. Briceño with GI - fu LFTs F: PRN E: PRN N: Regular Diet A: pIV DVT ppx: Lovenox GI ppx: Not indicated CODE STATUS: Full Code (confirmed on admission) Surrogate Decision Maker: Sister Alice Damon Marquise Mensah MD PGY-1 documented in this encounter [facility] Work Phone: 11-22-2023 Plan of care note Problem: Pain Goal: My pain/discomfort is manageable Outcome: Progressing Problem: Safety Goal: Patient will be injury free during hospitalization Outcome: Progressing Goal: I will remain free of falls Outcome: Progressing Problem: Daily Care Goal: Daily care needs are met Outcome: Progressing Problem: Psychosocial Needs Goal: Demonstrates ability to cope with hospitalization/illness Outcome: Progressing Goal: Collaborate with me, my family, and caregiver to identify my specific goals Outcome: Progressing Flowsheets (Taken 11/22/2023 1635) Cultural Requests During Hospitalization: no Spiritual Requests During Hospitalization: none Problem: Discharge Barriers Goal: My discharge needs are met Outcome: Progressing Problem: Respiratory Goal: Clear secretions with interventions this shift Outcome: Progressing Goal: Minimize anxiety/maximize coping throughout shift Outcome: Progressing Goal: Minimal/no exertional discomfort or dyspnea this shift Outcome: Progressing Goal: No signs of respiratory distress (eg. Use of accessory muscles. Peds grunting) Outcome: Progressing Goal: Patent airway maintained this shift Outcome: Progressing Goal: Tolerate mechanical ventilation evidenced by VS/agitation level this shift Outcome: Progressing Goal: Tolerate pulmonary toileting this shift Outcome: Progressing Goal: Verbalize decreased shortness of breath this shift Outcome: Progressing Goal: Wean oxygen to maintain O2 saturation per order/standard this shift Outcome: Progressing Goal: Increase self care and/or family involvement in next 24 hours Outcome: Progressing The patient's goals for the shift include The clinical goals for the shift include Get back home feeling better [facility] Work Phone: 10-01-2023 Attending History and physical note H&P reviewed. The patient was examined and there are no changes to the H&P. Source Note - Carmelita Waters MD - 09/18/2023 11:00 AM EDT Images from the original note were not included. Stanford Ceja M.D. [facility] Background: Bravo is a 38-year-old male with history of CF on Trikafta (N/dF508;OSJ5=202%; chronic colonization of MSSA (2021), PSA, (2018). Mycobacterium (2019)), CFRD, pancreatic insufficiency, SVT, and cirrhosis (follows with Dr. Briceño). He was last seen by myself on 04/24/23 with a CF exacerbation requiring admission to [facility] 06/05/23. 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 Chewing tobacco Current Use of Health Management Strategies: Respiratory Interventions Albuterol: Two times per day Pulmozyme: Does not use Hypertonic saline: 7% in the past Does not use HFCWO (percussive vest): Holt (Hillrom) Other - when getting chest colds [...] night after albuterol LAMA: No CFTR modulator: Qgvznevnmki-Xamlgwymwt-Ekfhrthvg (Trikafta) Full-dose (2 orange tablets in AM, [...] Test Results 09/18/23: FEV1= 87.8% (5.27L) 04/24/23: YRT9=873% (decreased from 112% last year) Current Medications Current Outpatient Medications Medication Instructions albuterol 90 mcg/actuation inhaler 2 puffs, inhalation, Every 4 hours PRN albuterol 2.5 mg, nebulization, Every 4 hours PRN Baqsimi 3 mg/actuation spray,non-aerosol Phoenix 3 mg nasally as needed for severe hypoglycemia blood sugar diagnostic (Accu-Chek Guide test strips) strip test 6-7 times daily budesonide-formoteroL (Symbicort) 80-4.5 mcg/actuation inhaler 2 puffs, inhalation, 2 times daily RT busPIRone (BUSPAR) 5 mg, oral, 2 times daily cholecalciferol (VITAMIN D-3) 5,000 Units, oral, Daily ngxmxtwiiqh-tpwcgpoukd-ufolavc (Trikafta) 100-50-75 mg tablet take 2 Tabs (elexacaftor 100mg/tezacaftor 50mg/ivacaftor 75mg) PO Q AM and 1 Tab (ivacaftor 150mg) PO Q Evening with fatty foods. fluticasone (Flonase) 50 mcg/actuation nasal spray 2 sprays, Each Nostril, Daily, Shake gently. Before first use, prime pump. After use, clean tip and replace cap. [employer] Crow 3 Sensor device Change sensor every 14 days for glucose monitoring glucagon (GLUCAGEN) 1 mg insulin glargine (Basaglar KwikPen U-100 Insulin) 100 unit/mL (3 mL) pen Inject up to 50 units daily insulin lispro (HumaLOG U-100 Insulin) 100 unit/mL injection Use up to 50 units daily as directed uwemth-vqvygftl-nqqsyhc (Zenpep) 25,000-79,000- 105,000 unit capsule 3 capsules, [...] RACE VARIABLE FOR THE IDMS-TRACEABLE CREATININE METHODS. https://jasn.asnjournals.org/con tent/early//ASN.678607 7118 Glucose Date/Time Value Ref Range Status 04/24/2023 [...] developed and its performance characteristics determined by [employer]. It has not been cleared or approved by the US Food and Drug Administration. This test was performed in a CLIA certified laboratory and is intended for clinical purposes. Performed By: [facility] [address] [place] [id number] Special Education Administrator: Chiki Valencia MD, PhD CLIA Number: [id number] Vitamin E (Alpha-Tocopherol) Date/Time Value Ref Range Status 04/24/2023 02:39 PM 2.9 (L) 5.5 - 18.0 mg/L Final Comment: This test was developed and its performance characteristics determined by [employer]. It has not been cleared or approved by the US Food and Drug Administration. This test was performed in a CLIA certified laboratory and is intended for clinical purposes. Vitamin E (Gamma-Tocopherol) Date/Time Value Ref Range Status 04/24/2023 02:39 PM 0.7 0.0 - 6.0 mg/L Final Comment: Performed By: [facility] [address] [place], [place] [id number] Special Education Administrator: Chiki Valencia MD, PhD CLIA Number: [id number] LFT and Associated Parameters AST Date/Time Value [...] 2 VIEW 10/04/2021 Narrative Patient Name: BRAVO HULL STUDY: CHEST 2 VIEW PA AND LAT; 10/04/2021 1:06 pm INDICATION: CF E84.9: Cystic fibrosis. COMPARISON: 07/23/2018. ACCESSION NUMBER(S): [id number] ORDERING CLINICIAN: JALEESA ALLAN FINDINGS: CARDIOMEDIASTINAL SILHOUETTE: [...] mcg/actuation inhaler Other Visit Diagnoses Cystic fibrosis ([facility]) Relevant Medications dbrzqvjqwtr-kjocatxyys-jirohch (Trikafta) 100-50-75 mg tablet fluticasone (Flonase) 50 [...] as below. > Cystic Fibrosis without exacerbation (N/dF508;DDE5=949->88% today) - Modulator: START Trikafta - Bronchodilators: [...] months Carmelita Waters MD 09/18/2023 [facility] Work Phone: 10-01-2023 History and physical note H&P reviewed. The patient was examined and there are no changes to the H&P. Source Note - Carmelita Waters MD - 09/18/2023 11:00 AM EDT Images from the original note were not included. Stanford Ceja M.D. [facility] Background: Bravo is a 38-year-old male with history of CF on Trikafta (N/dF508;URX2=895%; chronic colonization of MSSA (2021), PSA, (2018). Mycobacterium (2019)), CFRD, pancreatic insufficiency, SVT, and cirrhosis (follows with Dr. Briceño). He was last seen by myself on 04/24/23 with a CF exacerbation requiring admission to [facility] 06/05/23. 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 Chewing tobacco Current Use of Health Management Strategies: Respiratory Interventions Albuterol: Two times per day Pulmozyme: Does not use Hypertonic saline: 7% in the past Does not use HFCWO (percussive vest): Holt (Hillrom) Other - when getting chest colds [...] night after albuterol LAMA: No CFTR modulator: Mmmgpnwkkrb-Bcpfqreimw-Qgwxkuxyu (Trikafta) Full-dose (2 orange tablets in AM, [...] Test Results 09/18/23: FEV1= 87.8% (5.27L) 04/24/23: PKI3=476% (decreased from 112% last year) Current Medications Current Outpatient Medications Medication Instructions albuterol 90 mcg/actuation inhaler 2 puffs, inhalation, Every 4 hours PRN albuterol 2.5 mg, nebulization, Every 4 hours PRN Baqsimi 3 mg/actuation spray,non-aerosol Phoenix 3 mg nasally as needed for severe hypoglycemia blood sugar diagnostic (Accu-Chek Guide test strips) strip test 6-7 times daily budesonide-formoteroL (Symbicort) 80-4.5 mcg/actuation inhaler 2 puffs, inhalation, 2 times daily RT busPIRone (BUSPAR) 5 mg, oral, 2 times daily cholecalciferol (VITAMIN D-3) 5,000 Units, oral, Daily xwmcknehaap-kbtbbjdplx-ofhpgnn (Trikafta) 100-50-75 mg tablet take 2 Tabs (elexacaftor 100mg/tezacaftor 50mg/ivacaftor 75mg) PO Q AM and 1 Tab (ivacaftor 150mg) PO Q Evening with fatty foods. fluticasone (Flonase) 50 mcg/actuation nasal spray 2 sprays, Each Nostril, Daily, Shake gently. Before first use, prime pump. After use, clean tip and replace cap. [employer] Crow 3 Sensor device Change sensor every 14 days for glucose monitoring glucagon (GLUCAGEN) 1 mg insulin glargine (Basaglar KwikPen U-100 Insulin) 100 unit/mL (3 mL) pen Inject up to 50 units daily insulin lispro (HumaLOG U-100 Insulin) 100 unit/mL injection Use up to 50 units daily as directed nioovp-bqmzjbdn-wgqrgww (Zenpep) 25,000-79,000- 105,000 unit capsule 3 capsules, [...] RACE VARIABLE FOR THE IDMS-TRACEABLE CREATININE METHODS. https://jasn.asnjournals.org/con tent/early//ASN.051132 4687 Glucose Date/Time Value Ref Range Status 04/24/2023 [...] developed and its performance characteristics determined by [employer]. It has not been cleared or approved by the US Food and Drug Administration. This test was performed in a CLIA certified laboratory and is intended for clinical purposes. Performed By: [employer] [address] [place] [address] Special Education Administrator: Chiki Valencia MD, PhD CLIA Number: [id number] Vitamin E (Alpha-Tocopherol) Date/Time Value Ref Range Status 04/24/2023 02:39 PM 2.9 (L) 5.5 - 18.0 mg/L Final Comment: This test was developed and its performance characteristics determined by [employer]. It has not been cleared or approved by the US Food and Drug Administration. This test was performed in a CLIA certified laboratory and is intended for clinical purposes. Vitamin E (Gamma-Tocopherol) Date/Time Value Ref Range Status 04/24/2023 02:39 PM 0.7 0.0 - 6.0 mg/L Final Comment: Performed By: [employer] [address] [place], [place] [id number] Special Education Administrator: Chiki Valencia MD, PhD CLIA Number: [id number] LFT and Associated Parameters AST Date/Time Value [...] 2 VIEW 10/04/2021 Narrative Patient Name: BRAVO HULL STUDY: TH CHEST 2 VIEW PA AND LAT; 10/04/2021 1:06 pm INDICATION: CF E84.9: Cystic fibrosis. COMPARISON: 07/23/2018. ACCESSION NUMBER(S): [id number] ORDERING CLINICIAN: JALEESA ALLAN FINDINGS: CARDIOMEDIASTINAL SILHOUETTE: [...] Visit Diagnoses Cystic fibrosis (CMS/HCC) Relevant Medications hrtboxagoal-piagcdamcj-tprdtup (Trikafta) 100-50-75 mg tablet fluticasone (Flonase) 50 [...] as below. > Cystic Fibrosis without exacerbation (N/dF508;OOA2=776->88% today) - Modulator: START Trikafta - Bronchodilators: [...] 09/18/2023 documented in this encounter [facility] Work Phone: 10-01-2023 History and physical note H&P reviewed. The patient was examined and there are no changes to the H&P. Source Note - Carmelita Waters MD - 09/18/2023 11:00 AM EDT Images from the original note were not included. Stanford Ceja M.D. [facility] Background: Bravo is a 38-year-old male with history of CF on Trikafta (N/dF508;PBG5=457%; chronic colonization of MSSA (2021), PSA, (2018). Mycobacterium (2019)), CFRD, pancreatic insufficiency, SVT, and cirrhosis (follows with Dr. Briceño). He was last seen by myself on 04/24/23 with a CF exacerbation requiring admission to [facility] 06/05/23. HPI (09/20/2023): Bravo is here with [...] past Does not use HFCWO (percussive vest): Holt (Hillrom) Other - when getting chest colds [...] night after albuterol LAMA: No CFTR modulator: Ngnciyudjuc-Ypvjydzelo-Hvrqbqlfo (Trikafta) Full-dose (2 orange tablets in AM, [...] nutrition?: Yes - Ghost Protein drink from [employer] - 2 shakes/day + [employer] Mass Tam - 1/ day at night Pulmonary Function Test Results 09/18/23: FEV1= 87.8% (5.27L) 04/24/23: NSW0=851% (decreased from 112% last year) Current Medications Current Outpatient Medications Medication Instructions albuterol 90 mcg/actuation inhaler 2 puffs, inhalation, Every 4 hours PRN albuterol 2.5 mg, nebulization, Every 4 hours PRN Baqsimi 3 mg/actuation spray,non-aerosol Phoenix 3 mg nasally as needed for severe hypoglycemia blood sugar diagnostic (Accu-Chek Guide test strips) strip test 6-7 times daily budesonide-formoteroL (Symbicort) 80-4.5 mcg/actuation inhaler 2 puffs, inhalation, 2 times daily RT busPIRone (BUSPAR) 5 mg, oral, 2 times daily cholecalciferol (VITAMIN D-3) 5,000 Units, oral, Daily diqqfjcwtpr-mwdntdovkf-lcvypdz (Trikafta) 100-50-75 mg tablet take 2 Tabs (elexacaftor 100mg/tezacaftor 50mg/ivacaftor 75mg) PO Q AM and 1 Tab (ivacaftor 150mg) PO Q Evening with fatty foods. fluticasone (Flonase) 50 mcg/actuation nasal spray 2 sprays, Each Nostril, Daily, Shake gently. Before first use, prime pump. After use, clean tip and replace cap. [employer] Crow 3 Sensor device Change sensor every 14 days for glucose monitoring glucagon (GLUCAGEN) 1 mg insulin glargine (Basaglar KwikPen U-100 Insulin) 100 unit/mL (3 mL) pen Inject up to 50 units daily insulin lispro (HumaLOG U-100 Insulin) 100 unit/mL injection Use up to 50 units daily as directed rrxpzb-kliknici-yxealjv (Zenpep) 25,000-79,000- 105,000 unit capsule 3 capsules, [...] RACE VARIABLE FOR THE IDMS-TRACEABLE CREATININE METHODS. https://jasn.asnjournals.org/con tent/early//ASN.586401 5036 Glucose Date/Time Value Ref Range Status 04/24/2023 [...] developed and its performance characteristics determined by [employer]. It has not been cleared or approved by the US Food and Drug Administration. This test was performed in a CLIA certified laboratory and is intended for clinical purposes. Performed By: [employer] [address] [place] [address] Special Education Administrator: Chiki Valencia MD, PhD CLIA Number: [id number] Vitamin E (Alpha-Tocopherol) Date/Time Value Ref Range Status 04/24/2023 02:39 PM 2.9 (L) 5.5 - 18.0 mg/L Final Comment: This test was developed and its performance characteristics determined by [employer]. It has not been cleared or approved by the US Food and Drug Administration. This test was performed in a CLIA certified laboratory and is intended for clinical purposes. Vitamin E (Gamma-Tocopherol) Date/Time Value Ref Range Status 04/24/2023 02:39 PM 0.7 0.0 - 6.0 mg/L Final Comment: Performed By: [employer] [address] [place] [address] Special Education Administrator: Chiki Valencia MD, PhD CLIA Number: [id number] LFT and Associated Parameters AST Date/Time Value [...] 2 VIEW 10/04/2021 Narrative Patient Name: BRAVO HULL STUDY: TH CHEST 2 VIEW PA AND LAT; 10/04/2021 1:06 pm INDICATION: CF E84.9: Cystic fibrosis. COMPARISON: 07/23/2018. ACCESSION NUMBER(S): [id number] ORDERING CLINICIAN: JALEESA ALLAN FINDINGS: CARDIOMEDIASTINAL SILHOUETTE: [...] acute airspace disease. CF Sputum Culture 2021 MSSA 2019 - Rapid grower Mycobacterium Problem [...] Visit Diagnoses Cystic fibrosis (CMS/HCC) Relevant Medications uvcypmuhrbf-nhccgdvofo-iojfphx (Trikafta) 100-50-75 mg tablet fluticasone (Flonase) 50 [...] as below. > Cystic Fibrosis without exacerbation (N/dF508;MEH9=783->88% today) - Modulator: START Trikafta - Bronchodilators: [...] 09/18/2023 documented in this encounter [facility] Work Phone: 10-27-2021 Hospital Discharge instructions Homer [...] cannot be sent through Care Everywhere.Viral Infections (Belarusian)documented in this encounter [employer] Work Phone: 10-17-2020 History of Present illness Narrative Food Insecurity:1. Within the past 12 months, you worried that your food would run out before you got money to buy more: No2. Within the past 12 months, the food you bought just didn't last and you didn't have money to get more: No [employer] [address] [facility] Work Phone: Chief complaint Narrative - Reported Peripheral venipuncture for annual labs and [employer] : Procedure followed per policy for blood draw; Pt skin prepped, blood sample obtained per providers order. Applied clean, dry adhesive dressing to exit site. Pt tolerated the procedure with no problems. Instructed pt to keep dressing on for at least an hour after lab draw. [employer] Work Phone: Evaluation note Diagnosis Viral illness- Primary Unspecified viral infection, in conditions classified elsewhere and of unspecified site Acute upper respiratory infection Acute upper respiratory infections of unspecified site Dehydration documented in this encounter [employer] Phone: evaluation note* Diagnosis Viral illness- Primary Unspecified viral infection, in conditions classified elsewhere and of unspecified site documented in this encounter [employer] Phone: evaluation note* Diagnosis Acute viral syndrome- Primary Neurapraxia of left lower extremity, initial encounter documented in this encounter [employer] Phone: evaluation note* Diagnosis Mycobacterial, 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 Cystic fibrosis (CMS/HCC) Cystic fibrosis without mention of meconium ileus documented in this encounter [facility] Work Phone: [phone] note* Diagnosis CF (cystic fibrosis) (CMS/HCC) Cystic fibrosis without mention of meconium ileus documented in this encounter [facility] Work Phone: [phone] note* Diagnosis Mycobacterial, 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 Cystic fibrosis (CMS/HCC) Cystic fibrosis without mention of meconium ileus documented in this encounter [facility] Work Phone: [phone] note* Diagnosis CF (cystic fibrosis) (CMS/HCC) Cystic fibrosis without mention of meconium ileus documented in this encounter [facility] Work Phone: [phone] note* Diagnosis Cystic fibrosis with pulmonary manifestations (CMS/HCC) Cystic fibrosis with pulmonary manifestations documented in this encounter [facility] Work Phone: [phone] note* Diagnosis Cystic fibrosis with pulmonary manifestations (CMS/HCC) Cystic fibrosis with pulmonary manifestations documented in this encounter [facility] Work Phone: [phone] note* Diagnosis Arthralgia associated with cystic fibrosis (Multi) documented in this encounter [facility] Work Phone: [phone] note* Diagnosis Cystic fibrosis (Multi)- Primary Cystic fibrosis without mention of meconium ileus Cystic fibrosis (Multi) Cystic fibrosis without mention of meconium ileus Type 2 diabetes mellitus with hyperglycemia, without long-term current use of insulin (Multi) Diabetes mellitus related to CF (cystic fibrosis) (Multi) Secondary diabetes mellitus without mention of complication, not stated as uncontrolled, or unspecified Cystic fibrosis with pulmonary manifestations (Multi) Cystic fibrosis with pulmonary manifestations Type 2 diabetes mellitus with hyperglycemia, unspecified whether penitentiary insulin use (Multi) Type 2 diabetes mellitus with hyperglycemia, with long-term current use of insulin (Multi) documented in this encounter [facility] Work Phone: Evaluation note* Diagnosis Diabetes mellitus related to CF (cystic fibrosis) (Multi)- Primary Secondary diabetes mellitus without mention of complication, not stated as uncontrolled, or unspecified Cystic fibrosis (Multi) Cystic fibrosis without mention of meconium ileus documented in this encounter [facility] Work Phone: Evaluation note* Diagnosis Diabetes mellitus related to CF (cystic fibrosis) (Multi)- Primary Secondary diabetes mellitus without mention of complication, not stated as uncontrolled, or unspecified Cystic fibrosis with pulmonary manifestations (Multi)- Primary Cystic fibrosis with pulmonary manifestations Anxiety Anxiety state, unspecified Diabetes mellitus related to CF (cystic fibrosis) (Multi) Secondary diabetes mellitus without mention of complication, not stated as uncontrolled, or unspecified Methicillin resistant Staphylococcus aureus infection Methicillin resistant Staphylococcus aureus in conditions classified elsewhere and of unspecified site Exocrine pancreatic insufficiency (HHS-HCC) Other specified disease of pancreas Hepatic cirrhosis, unspecified hepatic cirrhosis type, unspecified whether ascites present (Multi) Cystic fibrosis Cystic fibrosis without mention of meconium ileus Mycobacterium abscessus colonization Paroxysmal SVT (supraventricular tachycardia) (CMS-HCC) Cystic fibrosis Cystic fibrosis without mention of meconium ileus documented in this encounter [facility] Work Phone: History of Present illness Narrative* Last visit: * 1. [facility] [place] [facility] [address] for meds * 2. Start Remeron at 15 mg by mouth before bed * 3. Resume Trikafta * 4. Appt with Dr. Harris and Dr. Briceño next time we see [...] - ? will need to ask Margaret Keyanna * Worked in [place] for [employer] * Moved home to care fo biju Dad * Lived in [place] * In [facility] -[place] miles to * Apartment was $3600/month, gas $5.70 * Wage was way better - $72 per hour * Was like being here but had more wriggle room * Is working back here. Has insurance through them * Is able to go back to [place] if he wants * Will be working at [email or web address] if he goes [employer] * Came back in March, didn't call [...] family doctor and he prescribed the insulin EX-Xojizqdqtv-Jkcedbq [address] [facility] Work Phone: Hospital Discharge instructions* Instructions* Rebecca [...] Care Everywhere. * URI (Upper Respiratory Infection) (Belarusian) * Viral Infections (Belarusian) * Oral Rehydration (Belarusian) documented in this [facility] Phone: Hospital Discharge instructions* Attachments The following attachments cannot be sent through Care Everywhere. * Viral Infections (Belarusian) documented [facility]: Family History No Family History Records [...] Purpose Advance Directives No Advanced Directives Records Found Date Activated Date Inactivated Comments 11/22/2023 4:53 PM Question Answer Comments Plan of Care: Code Status Discussion Completed Decision Maker: Patient Chief Complaint follow up visit for cystic fibrosis Reason for Referral Specialty Diagnoses / Procedures Referred By Contac t Referred To Contact Radiology Diagnoses Mycobacterial, atypical Cystic fibrosis (CMS/HCC) Procedures CT chest [place] [id number] [place] [phone] Referral ID Status Reason Start Date Expiration Date Visits Requested Visits Authorized [id number] Authorized Perform Procedure 3 06/18/2024 1 1 Specialty Diagnoses / Procedures Referred By Contac t Referred To Contact Diagnoses CF (cystic fibrosis) ([facility]) Procedures [place] [address] [place] [phone] Referral ID Status Reason Start Date Expiration Date V isits Requested Visits Authorized [id number] Pending Review 09/18/2023 09/17/2024 1 1 Specialty Diagnoses / Procedures Referred By Contac t [place] [address] [place] [address] Referral ID Status Reason Start Date Expiration Date V isits Requested Visits Authorized [id number] Pending Review 10/01/2023 09/30/2024 1 1 Referral ID Status Reason Start Date Expiration Date V isits Requested Visits Authorized [id number] Pending Review 10/01/2023 09/30/2024 1 1 Specialty Diagnoses / Procedures Referred By Contac t Referred To Contact Gastroenterology Diagnoses Cystic fibrosis with pulmonary manifestations ([facility]/HCC) Procedures Bronchoscopy Tier 1; w Braxton Law [place] [id number] [place] [address] Referral ID Status Reason Start Date Expiration Date V isits Requested Visits Authorized [id number] Authorized 09/19/2023 09/18/2024 1 1 Specialty Diagnoses / Procedures Referred By Contac t Referred To Contact Diagnoses Arthralgia associated with cystic fibrosis (Multi) Procedures Spirometry Carmelita Waters [place] [id number] [place] [address] Referral ID Status Reason Start Date Expiration Date V isits Requested Visits Authorized [id number] Pending Review 11/18/2023 11/17/2024 1 1 Specialty Diagnoses / Procedures Referred By Contac t Referred To Contact Diagnoses Diabetes mellitus related to CF (cystic fibrosis) (Multi) Rosalio Dahl MD [address] [place], [place] [phone] Referral ID Status Reason Start Date Expiration Date V isits Requested Visits Authorized [id number] Authorized 11/29/2023 11/28/2024 1 1 Specialty Diagnoses / Procedures Referred By Contac t Referred To Contact Radiology Diagnoses Cystic fibrosis with pulmonary manifestations (Multi) Procedures CT chest wo IV contrast Braxton Ambrosio MD [address] [place], [place] [phone] Referral ID Status Reason Start Date Expiration Date Visits Requested Visits Authorized [id number] Pending Review Perform Procedure 11/29/2023 11/28/2024 1 1 Specialty Diagnoses / Procedures Referred By Contac t Referred To Contact Diagnoses Cystic fibrosis with pulmonary manifestations (Multi) Rosalio Dahl MD [address] [place], [place] [phone] Referral ID Status Reason Start Date Expiration Date V isits Requested Visits Authorized [id number] Authorized 11/29/2023 11/28/2024 1 1 Specialty Diagnoses / Procedures Referred By Contac t Referred To Contact Diagnoses Cystic fibrosis (Multi) Procedures Spirometry Kapil Covarrubias APRN-CNP [address] [facility] Department [place] [address] Referral ID Status Reason Start Date Expiration Date V isits Requested Visits Authorized [id number] Pending Review 11/29/2023 11/28/2024 1 1 Specialty Diagnoses / Procedures Referred By Contac t Referred To Contact Diagnoses Cystic fibrosis [place] [address] [place] [phone] Referral ID Status Reason Start Date Expiration Date V isits Requested Visits Authorized [id number] Pending Review 03/20/2024 03/20/2025 1 1 Additional Source Comments (unrecognized sect ion and content) No Status Records FoundNo Status Records FoundNo Status Records FoundNo Status Records FoundNo Status Records FoundNo Status Records Found INFORMATION SOURCE (unrecogn ized section and content) DATE CREATED AUTHOR 01/30/2020 [facility] DATE CREATED AUTHOR AUTHOR'S ORGANIZ ATION 11/04/2021 [facility] DATE CREATED AUTHOR AUTHOR'S ORGANIZ ATION 01/06/2022 [facility] DATE CREATED AUTHOR AUTHOR'S ORGANIZ ATION 03/05/2022 [facility] DATE CREATED AUTHOR AUTHOR'S ORGANIZ ATION 12/01/2023 [facility] DATE CREATED AUTHOR AUTHOR'S ORGANIZ ATION 01/26/2025 [facility] Reason for Visit (unrecogniz ed section and [...] evening Specialty Diagnoses / Procedures Referred By Contac t Referred To Contact Radiology Diagnoses Mycobacterial, atypical Cystic fibrosis ([facility]) Procedures CT chest [place] [address] [place] [phone] Referral ID Status Reason Start Date Expiration Date Visits Requested Visits Authorized [id number] Authorized Perform Procedure 3 06/18/2024 1 1 Specialty Diagnoses / Procedures Referred By Contac t Referred To Contact Diagnoses CF (cystic fibrosis) ([facility]) Procedures [place] [address] [place] [phone] Referral ID Status Reason Start Date Expiration Date V isits Requested Visits Authorized [id number] Pending Review 09/18/2023 09/17/2024 1 1 Specialty Diagnoses / Procedures Referred By Contac t Referred To Contact Gastroenterology Diagnoses Cystic fibrosis with pulmonary manifestations ([facility]) Procedures Bronchoscopy Tier 1; [place] [address] [place] [address] Referral ID Status Reason Start Date Expiration Date V isits Requested Visits Authorized [id number] Authorized 09/19/2023 09/18/2024 1 1 Specialty Diagnoses / Procedures Referred By Contac t Referred To Contact Diagnoses Arthralgia associated with cystic fibrosis (Multi) Procedures [place] [address] [place] [phone] Referral ID Status Reason Start Date Expiration Date V isits Requested Visits Authorized [id number] Pending Review 11/18/2023 11/17/2024 1 1 Specialty Diagnoses / Procedures Referred By Contac t Referred To Contact Diagnoses Cystic fibrosis (Multi) Cystic fibrosis with pulmonary exacerbation (Multi) Procedures No coded services entered Madeleine Small MD [address] [address] [facility] [address] [address] [place] [address] Referral ID Status Reason Start Date Expiration Date Visits Re quested Visits Authorized [id number] 1 1 Specialty Diagnoses / Procedures Referred By Contac t Referred To Contact Diagnoses Cystic fibrosis (Multi) Procedures Spirometry Kapil Covarrubias, SADIA [address] [facility] Department [place] [address] Referral ID Status Reason Start Date Expiration Date V isits Requested Visits Authorized [id number] Pending Review 11/29/2023 11/28/2024 1 1 Specialty Diagnoses / Procedures Referred By Contac t Referred To Contact Diagnoses Cystic fibrosis [place] [address] [place] [address] Referral ID Status Reason Start Date Expiration Date V isits Requested Visits Authorized [id number] Pending Review 03/20/2024 03/20/2025 1 1 Scheduled Active and Recently Administ ered Medications (unrecognized section and content) Medication Order 06/24/2021 06/25/2021 06/26/2021 0.9 % sodium chloride bolus (COMPLETED) 2,000 mL (23.3 mL/kg), IntraVENous, at 2,000 mL/hr, Administer over 1 Hours, ONCE, On 06/25/21 at 2330, For 1 dose 2357 (New Bag - Provider: Joe Christine, RAMIRO) 0057 (Stopped - Provider: Marylou Martin RN) [...] Sat10/27/21 at 2046, Until Sat10/27/21 at 2049, KayDecember: cabinet override, ElizaDecember: cabinet override 2049 (Given - Provid er: Jessica Kya RN) Scheduled Medication Order 11/27/2023 11/28/2023 11/29/2023 busPIRone (Buspar) tablet 5 mg 5 mg, oral, 2 times daily, First dose on Sat11/22/23 at 2100 1202 (Given - Provider: Shabnam Grant RN)2118 (Given - Provider: Desiree Coker RN) 1019 (Given - Provider: Carlos Mcknight LPN)1956 (Given - Provider: Desiree Coker RN)2100 (Canceled Entry - Provider: Desiree Coker RN) 0823 (Given - Provider: Cristobal Garcia RN)2099 (Due) cefTAZidime (Fortaz) 2 g in sodium chloride 0.9% 50 mL IV (CANCELED) 2 g, intravenous, at 100 mL/hr, Administer over 30 Minutes, Every 8 hours, First dose on Sat11/22/23 at 2115, Dosing of this medication varies based on severity of illness. Does this patient have sepsis or concern for sepsis (probable or documented infection plus systemic manifestations of infection)? No, Suspected Indication (Select all that apply): Pneumonia, Type of Therapy: Empiric 0429 (New Bag - Provider: Marquise Mchugh, RN)0459 (Stopped - Provider: Marquise Mchugh RN)1354 (New Bag - Provider: Ivet Rice, RAMIRO)1424 (Stopped - Provider: Ivet Rice, RN)2114 (New Bag - Provider: Desiree Coker, RAMIRO)214 (Stopped - Provider: Desiree Coker RN) 0527 (New Bag - Provider: Desiree Coker RN)0557 (Stopped - Provider: Desiree Coker RN)1335 (New Bag - Provider: Carlos Mcknight LPN)1405 (Stopped - Provider: Carlos Mcknight LPN)2051 (New Bag - Provider: Desiree Coker RN)212 (Due: Stopped - Provider: Desiree Coker RN) 0435 (New Bag - Provider: Desiree Coker RN)0505 (Stopped - Provider: Desiree Coker RN) cholecalciferol (Vitamin D-3) tablet 5,000 Units 5,000 Units, oral, Daily, First dose on Sat11/22/23 at 1715 1202 (Given - Provider: Shabnam Grant RN) 1019 (Given - Provider: Carlos Mcknight LPN) 0823 (Given - Provider: Cristobal Garcia, RAMIRO) dornase Alpha (Pulmozyme) nebulizer solution 2.5 mg 2.5 mg, nebulization, Daily RT, First dose on Sat11/24/23 at 0930 1504 (Given - Provider: Brie Durant, SOA ENGINEER) 0936 (Given - Provider: Cristobal Myrick, SOA ENGINEER) 1400 (Given - Provider: Cordell Oliveira, PHILLIP) youpbthvfgy-vwmyrezjro-mw acaftor 100-50-75 mg per tablet 2 tablet 2 tablet, oral, Every morning, First dose (after last modification) on Sat11/26/23 at 0900, ORANGE Tablet Take tablet whole with a fat-containing meal or snack., On hold since Sat11/25/2023 at 1433 until manually unheld 0900 (Not Given - Provider: Ivet Rice RN - Reason: See Provider Order) 0900 (Dose Auto Held) 0900 (Not Given - Provider: Cristobal Garcia, RAMIRO - Reason: See Provider Order) enoxaparin (Lovenox) syringe 40 mg 40 mg, subcutaneous, Daily, First dose on Sat11/22/23 at 1945 1206 (Given - Provider: Shabnam Grant, RAMIRO) 1019 (Given - Provider: Carlos Mcknight LPN) 0823 (Given - Provider: Cristobal Garcia, RAMIRO) fluticasone furoate-vilanteroL (Breo Ellipta) 100-25 mcg/dose inhaler 1 puff 1 puff, inhalation, Daily RT, First dose on Sat11/22/23 at 1715 0800 (Given - Provider: Brie Durant, SOA ENGINEER - Comment: Pt took Breo himself with a mouth rinse after) 0940 (Given - Provider: Cristobal Myrick, SOA ENGINEER - Comment: workflow) 1400 (Given - Provider: Cordell Oliveira, PHILLIP) insulin glargine (Lantus) injection 25 Units (CANCELED) 25 Units, subcutaneous, Every 24 hours, First dose (after last modification) on Sat11/24/23 at 1945 2 (Given - Provider: Desiree Coker RN) 8 (Given - Provider: Desiree Coker RN) insulin glargine (Lantus) injection 28 Units 28 Units, subcutaneous, Every 24 hours, First dose (after last modification) on Sat11/29/23 at 1945 1945 (Due) insulin lispro (HumaLOG) injection 0-5 Units (CANCELED) 0-5 Units, subcutaneous, 3 times daily (morning, midday, late afternoon), First dose on Sat11/23/23 at 0800, Do not hold when patient is not eating, continue order as scheduled for hyperglycemia management. Insulin Lispro Corrective Scale #1 Hypoglycemia protocol Call LIP unit(s) if Blood Glucose is between 0 - 70 mg/dL 0 unit(s) if Blood glucose is between 71-150 1 unit(s) if Blood glucose is between 151-200 2 unit(s) if Blood glucose is between 201-250 3 unit(s) if Blood glucose is between 251-300 4 unit(s) if Blood glucose is between 301-350 5 unit(s) if Blood glucose is between 351-400 Notify provider unit(s) if Blood Glucose is greater than 400 mg/dL 0800 (Not Given - Provider: Ivet Rice RN - Reason: NPO)1200 (Not Given - Provider: Ivet Rice RN - Reason: Order parameters not met)1758 (Given - Provider: Ivet Rice RN) 0800 (Not Given - Provider: Carlos Mcknight LPN - Reason: Patient/family refused - Comment: pt wanted to wait until breakfast - order was d/c and and replaced for later morning) insulin lispro (HumaLOG) injection 0-5 Units 0-5 Units, subcutaneous, 3 times daily before meals and nightly, First dose (after last modification) on Blanche 11/28/23 at 1100, Do not hold when patient is not eating, continue order as scheduled for hyperglycemia management. Insulin Lispro Corrective Scale #1 Hypoglycemia protocol Call LIP unit(s) if Blood Glucose is between 0 - 70 mg/dL 0 unit(s) if Blood glucose is between 71-150 1 unit(s) if Blood glucose is between 151-200 2 unit(s) if Blood glucose is between 201-250 3 unit(s) if Blood glucose is between 251-300 4 unit(s) if Blood glucose is between 301-350 5 unit(s) if Blood glucose is between 351-400 Notify provider unit(s) if Blood Glucose is greater than 400 mg/dL 1010 (Given - Provider: Carlos Mcknight LPN)1800 (Not Given - Provider: Desiree Coker RN - Reason: Patient not available)1957 (Given - Provider: Desiree Coker RN)2100 (Canceled Entry - Provider: Desiree Coker RN) 0843 (Given - Provider: Cristobal Garcia, RAMIRO)1200 (Not Given - Provider: Cristobal Garcia RN - Reason: Order parameters not met)1700 (Due - Provider: Cristobal Garcia, RN)2100 (Due) insulin lispro (HumaLOG) injection 10 Units (COMPLETED) 10 Units, subcutaneous, Once, On Sat11/27/23 at 2115, For 1 dose, For BS 326 2120 (Given - Provider: Desiree Coker RN - Comment: Dose confirmed with ordering provider) insulin lispro (HumaLOG) injection 11 Units 11 Units, subcutaneous, 3 times daily (morning, midday, late afternoon), First dose (after last modification) on Sat11/26/23 at 1200 0800 (Not Given - Provider: Ivet Rice RN - Reason: NPO)1207 (Given - Provider: Shabnam Grant RN)1758 (Given - Provider: Ivet Rice RN) 1010 (Given - Provider: Carlos Mcknight LPN)1336 (Given - Provider: Carlos Mcknight LPN)1800 (Not Given - Provider: Desiree Coker RN - Reason: Patient not available) 0843 (Given - Provider: Cristobal Garcia RN)1201 (Given - Provider: Cristobal Garcia RN)1700 (Due) insulin lispro (HumaLOG) injection 4 Units (COMPLETED) 4 Units, subcutaneous, Once, On Sat11/27/23 at 1930, For 1 dose 193 (Given - Provider: Ivet Rice RN) ivacaftor tablet 150 mg 150 mg, oral, Every evening, First dose on Sat11/25/23 at 2100, BLUE Tablet Administer with high-fat foods., On hold since Sat11/25/2023 at 1436 until manually unheld 2100 (Dose Auto Held - Provider: Rosalio Dahl MD) 2100 (Dose Auto Held - Provider: Rosalio Dahl MD) 2100 (Dose Auto Held - Provider: Rosalio Dahl MD) lidocaine (Xylocaine) 10 mg/mL (1 %) injection 50 mg 50 mg (5 mL), infiltration, Once, On Sat11/27/23 at 1445, For 1 dose 1445 (Due) daqplt-pungaxrv-mufrnje (Zenpep) 25,000-79,000- 105,000 unit per capsule 3 capsule 3 capsule, oral, 3 times daily (morning, midday, late afternoon), First dose on Sat11/22/23 at 1715, Administer whole with food and sufficient fluid; do not crush or chew. Contents may be sprinkled on soft acidic food (such as applesauce or bananas) if swallowed immediately without chewing. 0800 (Not Given - Provider: Ivet Rice RN - Reason: NPO)1202 (Given - Provider: Shabnam Grant RN)1835 (Given - Provider: Ivet Rice RN) 1019 (Given - Provider: Carlos Mcknight LPN)1336 (Given - Provider: Carlos Mcknight LPN)1800 (Due - Provider: Carlos Mcknight LPN) 0822 (Given - Provider: Cristobal Garcia RN)1159 (Given - Provider: Cristobal Garcia RN)1700 (Due) mirtazapine (Remeron) tablet 15 mg 15 mg, oral, Nightly, First dose on Sat11/22/23 at 2100 2119 (Given - Provider: Desiree Coker RN) 1956 (Given - Provider: Desiree Coker RN)2100 (Canceled Entry - Provider: Desiree Coker RN) 2100 (Due) multivit with minerals-folic acid-criss K-CoQ (FLOR Plus) 200 mcg-1,000 mcg-10 mg capsule 1 capsule 1 capsule, oral, Daily, First dose on Sat11/22/23 at 1830 1202 (Given - Provider: Shabnam Grant RN) 1019 (Given - Provider: Carlos Mcknight LPN) 0823 (Given - Provider: Cristobal Garcia RN) sodium chloride 7 % nebulizer solution 3 mL 3 mL, nebulization, Every 12 hours, First dose on Sat11/22/23 at 1715 0800 (Due)2100 (Given - Provider: Mary Ro, PHILLIP) 0941 (Given - Provider: Cristobal Myrick, PHILLIP - Comment: workflow)2020 (Given - Provider: Pat Rondon) 1359 (Given - Provider: Cordell Oliveira RRT)1999 (Due) vancomycin (Vancocin) in dextrose 5 % water (D5W) 250 mL IV 1,000 mg 1,000 mg, intravenous, at 250 mL/hr, Administer over 60 Minutes, Every 8 hours, First dose (after last modification) on Sat11/26/23 at 1500, Mini-Bag Plus/ADD-[place] bag, Suspected Indication (Select all that apply): Pneumonia, Type of Therapy: Definitive, Based on Culture 0600 (New Bag - Provider: Marquise cMhugh, RAMIRO)0700 (Stopped - Provider: Marquise Mchugh RN)1442 (New Bag - Provider: Ivet Rice RN)1542 (Stopped - Provider: Ivet Rice RN)2227 (New Bag - Provider: Desiree Coker RN)2327 (Stopped - Provider: Desiree Coker RN) 0608 (New Bag - Provider: Desiree Coker RN)0708 (Stopped - Provider: Carlos Mcknight LPN)1500 (Not Given - Provider: Carlos Mcknight LPN - Reason: Other - Comment: medication retimed - pt off unit)194 (New Bag - Provider: Desiree Coker RN)2045 (Stopped - Provider: Desiree Coker RN) 0331 (New Bag - Provider: Desiree Coker RN)0431 (Stopped - Provider: Desiree Coker RN)1000 (New Bag - Provider: Cristobal Garcia RN)1100 (Stopped - Provider: Cristobal Garcia RN)1800 (Due - Provider: Pasquale Martinez, PharmD) PRN Medication Order 11/27/2023 11/28/2023 11/29/2023 albuterol 2.5 mg /3 mL (0.083 %) nebulizer solution 2.5 mg 2.5 mg, nebulization, Every 4 hours PRN, airway clearance, Starting on Sat11/22/23 at 1635 1504 (Given - Provider: Brie Durant, SOA ENGINEER) 0939 (Given - Provider: Cristobal Myrick, PHILLIP)2020 (Given - Provider: Pat Rondon) albuterol 90 mcg/actuation inhaler 2 puff 2 puff, inhalation, Every 4 hours PRN, shortness of breath, airway clearnce, Starting on Sat11/22/23 at 1635, Shake well before use. alteplase (Cathflo Activase) injection 2 mg 2 mg, intra-catheter, As needed, line care, Starting on Sat11/27/23 at 1415, Via PICC Line Removed by: Aspiration Inject into partial/totally occluded catheter lumen for total of 30 to 120 minute dwell time; assess patency at 30 minutes and if not patent, dwell for additional 90 minutes. If still not patent, repeat alteplase 2 mg injected into thrombotic partial or totally occluded lumen for a total of 120 minute dwell time; assess patency at 30 minutes and if not patent, dwell for 90 minutes. If still not patent, notify provider. Dilute each 2 mg vial with 2.2 mL sterile water to give 1 mg/mL final concentration. Swirl gently to mix; do not shake. dextrose 50 % injection 12.5 g 12.5 g, intravenous, Every 15 min PRN, For blood glucose 41 to 70 mg/dL, Starting on Sat11/22/23 at 1824, May repeat until blood glucose level reaches 100 mg/dL or greater. Push 2 - 3 mL/minute if patient has secure IV access. dextrose 50 % injection 25 g 25 g, intravenous, Every 15 min PRN, For blood glucose less than or equal to 40 mg/dL, Starting on Sat11/22/23 at 1824, May repeat until blood glucose level reaches 100 mg/dL or greater. Push 2 - 3 mL/minute if patient has secure IV access. glucagon (Glucagen) injection 1 mg 1 mg, intramuscular, Every 15 min PRN, low blood sugar - see comments, For blood glucose less than or equal to 40 mg/dL and no IV access, Starting on Sat11/22/23 at 1824, Give until blood glucose is 100 mg/dL or greater. If patient DOES NOT HAVE secure IV access & patient is unconscious, NPO or is unable to eat or drink. glucagon (Glucagen) injection 1 mg 1 mg, intramuscular, Every 15 min PRN, low blood sugar - see comments, For blood glucose less than or equal to 70 mg/dL and no IV access, Starting on Sat11/22/23 at 1824, Give until blood glucose is 100 mg/dL or greater. If patient DOES NOT HAVE secure IV access & patient is unconscious, NPO or is unable to eat or drink. vancomycin (Vancocin) pharmacy to dose - pharmacy monitoring miscellaneous, Daily PRN, other, Starting on Sat11/22/23 at 1719, This is a placeholder. Pharmacy will enter orders when vancomycin needs to be administered. Ordered Prescriptions (unrec ognized section and content) [...] Care Teams (unrecognized sec tion and content) Exterminator Relationship Specialty Start Date End Date Mirian Camilo MD [address] [facility] [address] [place] [address] PCP - General Family Medicine 07/25/21 Exterminator Relationship Specialty Start Date End Date Mirian Camilo MD Referring Physician Emergency Medicine 04/24/23 Marlen Marcelo, PharmD [address] [place], [place] [phone] Pharmacist Pharmacy 04/25/23 [place] [address] [place] [address] [employer] Director Pulmonary Disease 04/25/23 Rae Faulkner, RD Dietitian Nutrition 04/26/23 Georgina Adam, RN Registered Nurse Family Medicine 05/02/23 Ella Prasad, SOA ENGINEER Respiratory Therapist Respiratory Therapy 06/18/23 Elo Mercedes, SOA ENGINEER Respiratory Therapist Respiratory Therapy 07/11/23 Exterminator Relationship Specialty Start Date End Date Mirian Camilo MD Referring Physician Emergency Medicine 04/24/23 Marlen Marcelo, PharmD [address] [place] [address] Pharmacist Pharmacy 04/25/23 [place] [address] [place] [address] [employer] Director Pulmonary Disease 04/25/23 Rae Faulkner, RD Dietitian Nutrition 04/26/23 Georgina Adam, RN Registered Nurse Family Medicine 05/02/23 Ella Prasad, SOA ENGINEER Respiratory Therapist Respiratory Therapy 06/18/23 Elo Mercedes, SOA ENGINEER Respiratory Therapist Respiratory Therapy 07/11/23 Exterminator Relationship Specialty Start Date End Date Mirian Camilo MD Referring Physician Emergency Medicine 04/24/23 Marlen Marcelo, PharmD [address] [place] [address] Pharmacist Pharmacy 04/25/23 [place] [address] [place] [address] [employer] Director Pulmonary Disease 04/25/23 Rae Faulkner, RD Dietitian Nutrition 04/26/23 Georgina Adam, RN Registered Nurse Family Medicine 05/02/23 Ella Prasad, SOA ENGINEER Respiratory Therapist Respiratory Therapy 06/18/23 Elo Mercedes, SOA ENGINEER Respiratory Therapist Respiratory Therapy 07/11/23 Exterminator Relationship Specialty Start Date End Date Mirian Camilo MD Referring Physician Emergency Medicine 04/24/23 Marlen Marcelo, PharmD [address] [place] [address] Pharmacist Pharmacy 04/25/23 [place] [address] [place] [address] [employer] Director Pulmonary Disease 04/25/23 Rae Faulkner, ANDREW Dietitian Nutrition 04/26/23 Georgina Adam, RN Registered Nurse Family Medicine 05/02/23 Ella Prasad, SOA ENGINEER Respiratory Therapist Respiratory Therapy 06/18/23 Elo Mercedes, SOA ENGINEER Respiratory Therapist Respiratory Therapy 07/11/23 Exterminator Relationship Specialty Start Date End Date Mirian Camilo MD Referring Physician Emergency Medicine 04/24/23 Marlen Marcelo, PharmD [address] [place] [address] Pharmacist Pharmacy 04/25/23 [place] [address] [place] [address] [employer] Director Pulmonary Disease 04/25/23 Rae Faulkner, ANDREW Dietitian Nutrition 04/26/23 Georgina Adam, RN Registered Nurse [facility] 05/02/23 Ella Prasad, SOA ENGINEER Respiratory Therapist Respiratory Therapy 06/18/23 Elo Mercedes, SOA ENGINEER Respiratory Therapist Respiratory Therapy 07/11/23 Exterminator Relationship Specialty Start Date End Date Mirian Camilo MD Referring Physician Emergency Medicine 04/24/23 Marlen Marcelo, PharmD [address] [place] [address] Pharmacist Pharmacy 04/25/23 [place] [address] [place] [address] [employer] Director Pulmonary Disease 04/25/23 Rae Faulkner, ANDREW Dietitian Nutrition 04/26/23 Georgina Adam, RN Registered Nurse Family Medicine 05/02/23 Ella Prasad, SOA ENGINEER Respiratory Therapist Respiratory Therapy 06/18/23 Elo Mercedes, SOA ENGINEER Respiratory Therapist Respiratory Therapy 07/11/23 Exterminator Relationship Specialty Start Date End Date Mirian Camilo MD Referring Physician Emergency Medicine 04/24/23 Marlen Marcelo, PharmD [address] [place] [address] Pharmacist Pharmacy 04/25/23 [place] [address] [place] [address] [employer] Director Pulmonary Disease 04/25/23 Rae Faulkner, ANDREW Dietitian Nutrition 04/26/23 Georgina Adam, RN Registered Nurse Family Medicine 05/02/23 Ella Prasad, SOA ENGINEER Respiratory Therapist Respiratory Therapy 06/18/23 Elo Mercedes, SOA ENGINEER Respiratory Therapist Respiratory Therapy 07/11/23 Exterminator Relationship Specialty Start Date End Date Mirian Camilo MD Referring Physician Emergency Medicine 04/24/23 Marlen Marcelo, PharmD [address] [place] [address] Pharmacist Pharmacy 04/25/23 [place] [address] [place] [address] [employer] Director Pulmonary Disease 04/25/23 Rae Faulkner, ANDREW Dietitian Nutrition 04/26/23 Georgina Adam, RN Registered Nurse Family Medicine 05/02/23 Ella Prasad, SOA ENGINEER Respiratory Therapist Respiratory Therapy 06/18/23 Elo Mercedes, SOA ENGINEER Respiratory Therapist Respiratory Therapy 07/11/23 [place] [address] [place] [address] Resident Internal Medicine 11/22/23 Exterminator Relationship Specialty Start Date End Date Mirian Camilo MD Referring Physician Emergency Medicine 04/24/23 Marlen Marcelo, PharmD [address] [place] [phone] Pharmacist Pharmacy 04/25/23 [place] [address] [place] [phone] [employer] Director Pulmonary Disease 04/25/23 Rae Faulkner, ANDREW Dietitian Nutrition 04/26/23 Georgina Adam, RN Registered Nurse Family Medicine 05/02/23 Ella Prasad, SOA ENGINEER Respiratory Therapist Respiratory Therapy 06/18/23 Elo Mercedes, SOA ENGINEER Respiratory Therapist Respiratory Therapy 07/11/23 [place] [address] [place] [address] Resident Internal Medicine 11/22/23 Exterminator Relationship Specialty Start Date End Date Mirian Camilo MD Referring Physician Emergency Medicine 04/24/23 Marlen Marcelo, PharmD [address] [place] [address] Pharmacist Pharmacy 04/25/23 [place] [address] [place] [address] [employer] Director Pulmonary Disease 04/25/23 Rae Faulkner, RD Dietitian Nutrition 04/26/23 Georgina Adam, RAMIRO Registered Nurse Family Medicine 05/02/23 Ella Prasad, SOA ENGINEER Respiratory Therapist Respiratory Therapy 06/18/23 Elo Mercedes, SOA ENGINEER Respiratory Therapist Respiratory Therapy 07/11/23 [place] [address] [place] [phone] Resident Internal Medicine 11/22/23 Exterminator Relationship Specialty Start Date End Date Mirian Camilo MD Referring Physician Emergency Medicine 04/24/23 Marlen Marcelo, PharmD [address] [place] [address] Pharmacist Pharmacy 04/25/23 [place] [address] [place] [address] [employer] Director Pulmonary Disease 04/25/23 Rae Faulkner, RD Dietitian Nutrition 04/26/23 Ella Prasad, SOA ENGINEER Respiratory Therapist Respiratory Therapy 06/18/23 Elo Mercedes, SOA ENGINEER Respiratory Therapist Respiratory Therapy 07/11/23 [place] [address] [place] [phone] Resident Internal Medicine 11/22/23 Virginia Soria, RN Registered Nurse Pediatric Pulmonology 12/12/23 Madi Deras MD [address] [place] [address] [place] [phone] Consulting Physician Pulmonary Disease 12/13/23 Kapil Covarrubias, AUTO INSPECTION SPECIALIST-CONSULTING GROUP ANALYST [address] [place] [address] [place] [address] Nurse Practitioner Pediatric Pulmonology 12/13/23 [place] [address] [facility] [place] [phone] Physical Therapist Physical Therapy 01/15/24 Exterminator Relationship Specialty Start Date End Date Mirian Camilo MD Referring Physician Emergency Medicine 04/24/23 Marlen Marcelo, PharmD [address] [place] [address] Pharmacist Pharmacy 04/25/23 Carmelita Waters MD [address] [place], [place] [phone] [employer] Director Pulmonary Disease 04/25/23 Rae Faulkner, RD Dietitian Nutrition 04/26/23 Ella Prasad, SOA ENGINEER Respiratory Therapist Respiratory Therapy 06/18/23 Elo Mercedes, SOA ENGINEER Respiratory Therapist Respiratory Therapy 07/11/23 [place] [address] [place] [address] Resident Internal Medicine 11/22/23 Virginia Soria, RAMIRO Registered Nurse Pediatric Pulmonology 12/12/23 [place] [address] [facility] Department [place] [address] Consulting Physician Pulmonary Disease 12/13/23 Kapil Covarrubias, SAMMI-CONSULTING GROUP ANALYST [address] [facility] [place] [address] Nurse Practitioner Pediatric Pulmonology 12/13/23 [place] [id number] [facility] [place] [id number] Physical Therapist Physical Therapy 01/15/24 FOR RECORDS PERTAINING TO PATIENTS WHO ARE [...] BE BASED ON THE PRIMARY CLINICAL RECORDS. [employer] [facility] provides no warranty or guarantee of the accuracy or completeness of information in this document.
--- NOTE | 2025-02-07 01:43 | ECG_ITS ---
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 Measurements Intervals [place] Rate: 100 P: 34 [place]: 132 QRS: 64 QRSD: 80 T: 38 QT: 334 QTc: 391 Interpretive Statements 1120 Sinus tachycardia 9140 abnormal rhythm ECG Compared to ECG 03/08/2024 09:15:46 No significant changes Electronically Signed On 02-07-2025 18:50:57 EDT by KARLY ODOM M.D.
--- NOTE | 2025-02-07 01:43 | XR_ITS ---
[address] [address] Patient Name: BRAVO ALBRECHT MRN: [id number] date: 1985 Sex: M Assigned Patient Location: ER Current Patient Location: Accession/Order Number: [id number] Exam Date: 02/07/2025 08:37 Report Date: 02/07/2025 08:41 At the request of: CHARLEE CASTRO MD Procedure: XR chest 1V XR chest 1V 02/07/2025 1:59 AM SIGNS AND SYMPTOMS: Chest pain PROTOCOL: Frontal radiograph of the chest COMPARISON: 10/31/2023 FINDINGS: The trachea is midline. The heart and mediastinal structures are within normal limits. The lung parenchyma is clear. The bony thorax is intact. XR/XR chest 1V IMPRESSION: No acute cardiopulmonary pathology. Impression dictated by: Alex Arroyo M.D. 02/07/2025 8:41 AM Dictation Location: [place] [address] Electronically authenticated by: [id number] Y Date: 02/07/2025 08:41
--- NOTE | 2025-02-07 01:52 | ED.GENADUL1 ---
HPI HPI - General Adult General Chief complaint: Chest Pain Stated complaint: CHEST PAIN, L ARM TINGLING Time Seen by Provider: 02/07/25 01:35 Source: patient Mode of arrival: walk-in Limitations: no limitations History of Present Illness HPI narrative: This 39-year-old male states that he had an episode of palpitations while driving tonight. Symptoms lasted 40 minutes and he was able to terminate the episode with a Valsalva maneuver. He also felt chest tightness during the time. He has a history of paroxysmal supraventricular tachycardia in the past. Patient has a history of cystic fibrosis and states that because of that he has developed liver problems and diabetes. Patient had 2 cans of Mountain Dew earlier in the day whereas normally he does not drink caffeinated soda. Related Data Home Medications ?Medication ?Instructions ?Recorded ?Confirmed insulin glargine 100 unit/mL (3 25 unit subcut BID 04/11/23 02/07/25 mL) subcutaneous pen (Basaglar KwikPen U-100 Insulin) qbepxe-zjgubocr-crqgrcz 5 cap PO .WM 04/11/23 02/07/25 3,000-10,000-14,000 unit capsule,delayed rel (Zenpep) multivitamin (Daily Multi-Vitamin 1 tab PO DAILY 06/05/23 02/07/25 tablet) buspirone 5 mg tablet 5 mg PO DAILY 10/31/23 02/07/25 elexacaftor 100 mg-tezacaf 1 ea PO BID 02/07/25 02/07/25 50mg-ivacaf 75mg(d)/ivacaf 150mg(n) tablets (Trikafta) Previous Rx's ?Medication ?Instructions ?Recorded insulin lispro 100 unit/mL 1 sliding scale dose subcut 06/07/23 subcutaneous pen (Humalog KwikPen USEASDIRECTD #0 mL (U-100) Insulin) insulin syringe-needle U-100 1 mL #100 ea 06/07/23 29 gauge x 1/2 (Sure Comfort Insulin Syringe) Allergies Allergy/AdvReac Type Severity Reaction Status Date / Time No Known Drug Allergies Allergy Verified 02/07/25 01:31 Opioid HPI Opioid Management Most Recent Opioid Data: Last Pain Scale 0 08/26/24, 11:20 Ur Phencyclidine Scrn, (NEGATIVE) Negative 06/05/23, 09:53 Review of Systems ROS Status of ROS 10 or more systems reviewed and unremarkable except as noted in history and below [facility] Medical History Type 2 diabetes mellitus with hyperglycemia ?E11.65 - Type 2 diabetes mellitus with hyperglycemia (ICD-10) Cystic fibrosis with liver disease ?E84.8 - Cystic fibrosis with other manifestations (ICD-10) ?K76.9 - Liver disease, unspecified (ICD-10) Nose polyp ?J33.9 - Nasal polyp, unspecified (ICD-10) Cystic fibrosis ?E84.9 - Cystic fibrosis, unspecified (ICD-10) Surgical History H/O left knee surgery ?Z98.890 - Other specified postprocedural states (ICD-10) History of hernia surgery ?Z98.890 - Other specified postprocedural states (ICD-10) ?Z87.19 - Personal history of other diseases of the digestive system (ICD-10) Family History Father Family history of COPD (chronic obstructive pulmonary disease) Family history of cancer Family history of diabetes mellitus Family history of hypertension Mother Family history of diabetes mellitus Family history of hypertension Sister Family history of hypertension Social History Within the past year, how often did you have a drink containing alcohol: never Score interpretation: A score less than 4 is consistent with normal alcohol consumption. 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 Known occupational exposures/hazards: No Highest level of school completed/degree received: Associate degree: occupational, technical, vocational program Are you now , , , , never or living with a partner: In a typical week, how many times do you talk on the telephone with family, friends, or neighbors: 3 or more times per week How often do you get together with friends or relatives: 3 or more times per week How often do you attend congregation or confucianist services: never Do you belong to any clubs or organizations such as congregation groups unions, fraternal or athletic groups, or school groups: no Total score: 1 Score interpretation: A score of less than or equal to 1 indicates the most socially isolated. Little interest or pleasure in doing things: not at all Feeling down, depressed, or hopeless: not at all Feel stressed/tense/nervous/anxious/difficulty sleeping: only a little Do you think of yourself as: straight/heterosexual Gender Identity: male Exam Narrative Exam Narrative: 80Afebrile and nondistressed. On the monitor the patient is in sinus mechanism with a heart rate in the 90s. HEENT exam is normal to inspection. Neck is supple. Lung sounds are clear to auscultation bilaterally. Heart has a regular rate and rhythm. Abdomen soft nontender. EXTR warm and dry. Constitutional Vital Signs, click to edit/add: Last Vital Signs Temp 98.7 F 02/07/25 01:31 Pulse 91 H 02/07/25 02:30 Resp 20 02/07/25 02:30 BP 132/92 H 02/07/25 01:36 Pulse Ox 96 02/07/25 01:45 O2 Del Method Room Air 02/07/25 01:31 Course Vital Signs Vital signs: Vital Signs Temperature 98.7 F 02/07/25 01:31 Pulse Rate 102 H 02/07/25 01:31 Respiratory Rate 20 02/07/25 01:31 Blood Pressure 132/92 H 02/07/25 01:31 Pulse Oximetry 95 02/07/25 01:31 Oxygen Delivery Method Room Air 02/07/25 01:31 Temperature 98.7 F 02/07/25 01:31 Pulse Rate 91 H 02/07/25 02:30 Respiratory Rate 20 02/07/25 02:30 Blood Pressure 132/92 H 02/07/25 01:36 Pulse Oximetry 96 02/07/25 01:45 Oxygen Delivery Method Room Air 02/07/25 01:31 Medical Decision Making MDM Narrative Medical decision making narrative: The twelve-lead EKG is interpreted by me and shows sinus tachycardia with a rate of 100 bpm. The axis is normal and there are no ischemic changes. Intervals are normal. Patient was treated with a liter of IV fluids. Labs are entirely unremarkable and he remains in sinus mechanism. Given his history of PSVT I suspect he had another bout of supraventricular tachycardia that has resolved. He is advised to reduce his caffeine use and contact his vocational rehabilitation technician for further management. He may return anytime for worsening symptoms. Lab Data Labs: Lab Results 02/07/25 Range/Units 01:50 WBC 9.8 (4.0-11.0) 10^3/uL RBC 4.57 L (4.70-6.10) 10^6/uL Hgb 14.1 (14.0-18.0) g/dL Hct 38.7 L (42.0-54.0) % MCV 84.7 (80.0-94.0) fL MCH 30.9 (25.9-34.0) pg MCHC 36.4 H (29.9-35.2) g/dL RDW 11.6 (11.0-15.0) % Plt Count 265 (150-450) 10^3/uL MPV 9.1 L (9.5-13.5) fL Neut % (Auto) 69.4 (43.0-75.0) % Lymph % (Auto) 20.2 L (20.5-60.0) % [place] % (Auto) 7.3 (1.7-12.0) % Eos % (Auto) 2.1 (0.9-7.0) % Baso % (Auto) 0.6 (0.2-2.0) % Neut # (Auto) 6.8 H (1.4-6.5) 10^3/uL Lymph # (Auto) 2.0 (1.2-3.8) 10^3/uL [place] # (Auto) 0.7 (0.3-0.8) 10^3/uL Eos # (Auto) 0.2 (0.0-0.7) 10^3/uL Baso # (Auto) 0.1 (0.0-0.1) 10^3/uL Abs Immat Gran (auto) 0.04 H (0.00-0.03) 10^3/uL Imm/Tot Granulo (auto) 0.4 (0.0-0.5) % Sodium 136 (136-145) mmol/L Potassium 3.8 (3.5-5.1) mmol/L Chloride 99 (98-107) mmol/L Carbon Dioxide 28.2 (21.0-32.0) mmol/L Anion Gap 12.6 BUN 12.0 (7.0-18.0) mg/dL Creatinine 0.89 (0.70-1.30) mg/dL Est GFR ( Amer) >60 (>=60 mL/min/1.73m^2) Est GFR (Non-Af Amer) >60 (>=60 mL/min/1.73m^2) BUN/Creatinine Ratio 13.5 Glucose 229 H (74-106) mg/dL Calcium 9.1 (8.5-10.1) mg/dL Total Bilirubin 0.6 (0.2-1.0) mg/dL AST 22 (15-37) U/L ALT 24 (16-63) U/L Alkaline Phosphatase 134 H (46-116) U/L Troponin I High Sens 8.3 (4.0-76.1) pg/mL Total Protein 7.8 (6.4-8.2) g/dL Albumin 3.8 (3.4-5.0) g/dL Globulin 4.0 g/dL Albumin/Globulin Ratio 0.9 Discharge Plan Discharge Chief Complaint: Chest Pain Clinical Impression: Paroxysmal supraventricular tachycardia Patient Disposition: Home, Self-Care Time of Disposition Decision: 02:44 Condition: Good Mode of Transportation: Private Vehicle Prescriptions / Home Meds: No Action multivitamin [Daily Multi-Vitamin] Tablet 1 tab PO DAILY (DME) insulin syringe-needle U-100 [Sure Comfort Insulin Syringe] 1 mL 29 gauge x 1/2 syringe See Rx Instructions .Route Qty: 100 0RF Rx Instructions: As directed insulin lispro [Humalog KwikPen Insulin] 100 unit/mL insulin pen 1 sliding scale dose subcut USEASDIRECTD Qty: 0 0RF buspirone 5 mg tablet 5 mg PO DAILY Trikafta 100-50-75 mg(d) /150 mg (n) tablets, sequential 1 ea PO BID Zenpep 3,000-10,000 -14,000-unit capsule,delayed release(DR/EC) 5 cap PO .WM Rx Instructions: 5-7 CAPS WITH MEALS AND 3 CAPS WITH SNACKS insulin glargine [Basaglar KwikPen U-100 Insulin] 100 unit/mL (3 mL) insulin pen 25 unit subcut BID Print Language: Spanish Instructions: Supraventricular Tachycardia (ED) Additional Instructions: Avoid caffeine. Follow-up with your vocational rehabilitation technician. Return for worsening symptoms. Referrals: VICK BURR [Physician, Family Practice] - 1 week Physician,Non-Staff, [Primary Care Provider] - 1 week Discharge Date/Time: 02/07/25 03:13
[2025-02-07 02:09] LABS: Hematocrit 38.7 % (42.0-54.0); Hemoglobin 14.1 g/dL (14.0-18.0); Immature Granulocytes Abs Auto 0.04 10^3/uL (0.00-0.03); Immature Granulocytes Pct Auto 0.4 % (0.0-0.5); Lymphocytes Absolute Auto 2.0 10^3/uL (1.2-3.8); Mean Corpuscular HGB Conc 36.4 g/dL (29.9-35.2); Mean Corpuscular Hemoglobin 30.9 pg (25.9-34.0); Mean Corpuscular Volume 84.7 fL (80.0-94.0); Platelet Count 265 10^3/uL (150-450); Red Blood Count 4.57 10^6/uL (4.70-6.10); White Blood Count 9.8 10^3/uL (4.0-11.0)
[2025-02-07] MEDS: 0.9 % SODIUM CHLORIDE 1,000 ML 1000 ML IV (02:11)
[2025-02-07 02:25] LABS: Alanine Aminotransferase 24 U/L (16-63); Albumin Globulin Ratio 0.9; Albumin Level 3.8 g/dL (3.4-5.0); Alkaline Phosphatase 134 U/L (46-116); Anion Gap 12.6; Aspartate Amino Transferase 22 U/L (15-37); Blood Urea Nitrogen 12.0 mg/dL (7.0-18.0); Calcium 9.1 mg/dL (8.5-10.1); Carbon Dioxide 28.2 mmol/L (21.0-32.0); Chloride 99 mmol/L (98-107); Estimated GFR (African America >60 (>=60 mL/min/1.73m^2); Estimated GFR (Non-African Ame >60 (>=60 mL/min/1.73m^2); Globulin 4.0 g/dL; Glucose 229 mg/dL (74-106); Potassium 3.8 mmol/L (3.5-5.1); Sodium 136 mmol/L (136-145); Total Protein 7.8 g/dL (6.4-8.2)
== END 2025-02-07 03:13 | disposition home or self-care (01) ==
PROVIDERS: Emergency Provider Emergency Medicine
DX: I47.10 Supraventricular tachycardia, unspecified (principal); E84.9 Cystic fibrosis, unspecified; E11.9 Type 2 diabetes mellitus without complications; Z79.4 Long term (current) use of insulin; K76.9 Liver disease, unspecified
CPT/HCPCS: 36415; 71045; 80053; 84484; 85025; 93005; 99285